=== PATIENT | female | born 1985 | race Caucasian/White ===

== ENCOUNTER 2016-07-28 02:25 | Emergency (ER) | payer BC, OTHER ==
[~2016-07-28] VITALS: Ht 162.6 cm; Wt 49.9 kg
[~2016-07-28 02:25] MED LIST: ACET1TAB43 PO; ACHD5005 PO; AMOX500C2 PO; AZIT-21 PO; CEFD300C3 PO; CEPH500C PO; CPR500T PO; DICY20TA57 PO; FRS325T PO; GABA-488 PO; HYDR-3714 PO; HYDR-3812 PO; HYDR25CA5 PO; IRON; METR500T PO; NAPR500T3 PO; NEOM10DR11 OT; NITR100C3 PO; ONDAN4ODT PO; OXYC-12 PO; PREN1TAB39 PO; PRM25T PO; SULF1TAB35 PO; SULF1TAB38 PO; TRAM-42 PO; TRAM50TA2 PO; birth control patch
[2016-07-28] MEDS ORDERED: NORE1PAT7 (02:49)
--- NOTE | 2016-07-28 04:02 | ED Upper Extremity ---
General Chief Complaint: Upper Extremity Stated Complaint: RT HAND PAIN,SWELLING Nursing Triage Note: Stated she had been having arthritis pain for the last 6 months. Stated that this last week the pain has increased in rt hand- fingers number 4 and 5. States she saw Dr Syed Saturday and was on prednisone. States pain is worse in morning. States the joints feel like they are on fire and swollen. pains increases dwon figers with movement of wrist. States that her father and grandmother have RA. Shes was tested several years ago and tested negative. Tearful Nursing Sepsis Screen: No Definite Risk Source: patient History of Present Illness Time seen by provider: 03:21 Initial Comments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aturday07/23/16 FOR THIS PROBLEM AND WAS GIVEN 7 DAY TAPER OF PREDNISONE--STATES NO IMPROVEMENT NO PARESTHESIAS OR MOTOR DEFICITS PT WRITES WITH LEFT HAND, BUT USES RIGHT HAND FOR EVERYTHING ELSE. 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 NO KNOWN INJURY PCP: DR. SYED Allergies and Home Medications Allergies Coded Allergies: cephalexin (Verified Allergy, Severe, RASH, 07/28/16) tramadol (Verified Adverse Reaction, Unknown, VOMITING, 07/28/16) Home Medications Gabapentin 300 Mg Capsule #21 300 MG PO HS (Reported) Hydrocodone/Acetaminophen 1 Each Tablet #14 1-2 EACH PO Q4H PRN PRN PAIN Prescribed by: MIGEL LAYTON on 03/23/161939 Hydrocodone/Acetaminophen 1 Each Tablet #15 1 EACH PO Q4H Prescribed by: TANNER CROSS on 07/28/16 0411 Naproxen 500 Mg Tablet 500 MG PO (Reported) Norelgestromin/Ethin.estradiol 1 Each Patch.tdwk #3 (Reported) Constitutional: no symptoms reported Respiratory: no symptoms reported Cardiovascular: no symptoms reported Gastrointestinal: no symptoms reported Genitourinary: no symptoms reported LMP: Jun 28, 2016 Control/STD Prophylaxis: BC Patch (ORTHO-EVRA ) Musculoskeletal: see HPI Skin: no symptoms reported Psychiatric/Neurological: No Symptoms Reported Past [place]-Qpil[place]-Wmwtvj Hx Patient Social History Alcohol Use: Denies Use Recreational Drug Use: No Smoking Status: Never a Smoker Recent Foreign Travel: No Contact w/Someone Who Travel: No Recent Infectious Disease Expo: No Recent Hopitalizations: No Physical Abuse Screen: No Sexual Abuse: No Immunizations Up To Date Tetanus Booster (TDap): Less than 5yrs Date of Influenza Vaccine: Apr 27, 2014 Surgeries HX Surgeries: Yes (WISDOM TEETH REMOVED) Surgeries: Gallbladder Respiratory Hx Respiratory Disorders: No Cardiovascular Hx Cardiac Disorders: No Neurological Hx Neurological Disorders: Yes Neurological Disorders: Headaches /Migraines 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 System : No Hx 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 Disorders: No Sexually Transmitted Disease: No HIV/AIDS: No Female 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 Disorders: Ovarian Cyst Genitourinary Hx Genitourinary Disorders: No Gastrointestinal Hx Gastrointestinal Disorders: No Musculoskeletal Hx Musculoskeletal Disorders: Yes Musculoskeletal Disorders: Arthritis, Chronic Back Pain Endocrine Hx Endocrine Disorders: No HEENT HX ENT Disorders: Yes (crowns) Cancer Hx Cancer: No Psychosocial Hx Psychiatric Problems: No Integumentary HX Skin/Integumentary Disorder: No Blood Transfusions Hx Blood Disorders: No Adverse Reaction to a Blood Tr: No Physical Exam Vital Signs Vital Sign - Last 12Hours 07/28/16 02:39 Temp 99.4 Pulse 92 Resp 18 B/P 127/101 Pulse Ox 98 Capillary Refill : Less Than 3 Seconds General Appearance: WD/WN no apparent distress other (DRAMATIC) Cardiovascular: regular rate, rhythm Respiratory: normal breath sounds Gastrointestinal: soft Shoulder: normal inspection Elbow/Forearm: normal inspection Wrist: Yes normal inspection Hand: Right (WITH MOST TENDERNESS TO JOINTS OF RIGHT 4TH AND 5TH FINGERS, AND MCP JOINTS--MILD SWELLING TO JOINTS OF RIGHT HAND WELL-WORSE IN 4TH AND 5TH FINGERS . ), bone tenderness, limited ROM, soft tissue tenderness, stiffness, swelling Neurologic/Tendon: normal sensation Neurologic/Psychiatric: no motor/sensory deficits alert oriented x 3 Skin: normal color warm/dry Progress/Results/Core Measures Results/Orders My Orders Orders-TANNER CROSS DO Wrist, Right, 3 Views Or More (07/28/16 03:24) Hand, Right, 3 Views (07/28/16 03:24) Vital Signs/I&O Vital Sign - Last 12Hours 07/28/16 07/28/16 02:39 04:29 Temp 99.4 99.3 Pulse 92 101 Resp 18 16 B/P 127/101 Pulse Ox 98 100 Blood Pressure Mean: 110 Diagnostic Imaging Comments XRAYS RIGHT HAND--NO ACUTE PROCESS XRAYS RIGHT WRIST--NO ACUTE PROCESS PENDING RADIOLOGIST REVIEW Reviewed: Reviewed by Me Departure Impression Impression: Primary Impression: Chronic pain of right hand Additional Impression: JOINT PAIN AND SWELLING TO RIGHT HAND Disposition: HOME, SELF-CARE Condition: Stable Departure-Patient Inst. Referrals: JOEY SYED DO (PCP/Family) Primary Care Physician Patient Instructions: Chronic Pain (DC), Hand Pain (DC) Add. Discharge Instructions: ALTERNATE ICE AND HEAT TO SORE AREAS AT 20 MINUTE INTERVALS TAKE PREDNISONE PRESCRIBED FOLLOW UP WITH DR. SYED ON SATURDAY FOR FURTHER CARE All discharge instructions reviewed with patient and/or family. Voiced understanding. Scripts Hydrocodone/Acetaminophen (Hydrocodon -Acetaminophen 5-325)1 Each Tablet1 Each PO Q4H #15 TAB Prov:TANNER CROSS DO 07/28/16 TANNER CROSS DO Jul 28, 2016 04:01
[2016-07-28] MEDS ORDERED: HYDR-3812 PO (04:11)
[2016-07-28 04:29] VITALS: BP 120/76
--- NOTE | 2016-07-28 07:43 | Diagnostic Imaging Report ---
EXAMINATION: 3 views of right hand. INDICATION: Hand and wrist pain. FINDINGS: These 3 views of the right hand demonstrate no evidence of dislocation. Joint spaces appear preserved. There is no cortical disruption to suggest fracture. There is no focal soft tissue abnormality. IMPRESSION: Negative radiographs of the right hand. Dictated by: Dictated on workstation # [id number]
--- NOTE | 2016-07-28 07:46 | Diagnostic Imaging Report ---
EXAMINATION: 3 views of the right wrist. INDICATION: Hand and wrist pain. FINDINGS: Alignment of the wrist appears normal. Distal radius and ulna unremarkable. There is widening of the scapholunate interval. There is no fracture of the carpals. The visualized portion of the hand unremarkable IMPRESSION: 1. No acute fracture or dislocation. 2. There is a mildly widened scapholunate interval. The possibility of a scapholunate ligament tear cannot be completely excluded. Dictated by: Dictated on workstation # [id number]
== END 2016-07-28 04:28 | disposition home or self-care (01) ==
LOC: EDUNIT# 02:25 → ER 02:29
DX: M25.541 Pain in joints of right hand (principal); R22.31 Localized swelling, mass and lump, right upper limb
CPT/HCPCS: 73110; 73130

== ENCOUNTER 2016-09-01 11:40 | Emergency (ER) | payer SELFPAY ==
[~2016-09-01] VITALS: Ht 162.6 cm; Wt 59.0 kg
[~2016-09-01 11:40] MED LIST changes: +NORE1PAT7
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
--- NOTE | 2016-09-01 12:18 | ED Lower Extremity ---
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 C/O PAIN IN R 2ND TOE. CRYING ON ADMIT TO ROOM Nursing Sepsis Screen: No Definite Risk Source: patient Exam Limitations: no limitations History of Present Illness Time seen by provider: 12:16 Initial Comments The patient is a 31-year-old white female who presents with a complaint of pain in the right second toe. She states this is the worst pain that she has ever experienced in her life despite having multiple childbirths. She states that somehow the door to their bathroom became walked from the outside. She kicked the door from the inside in an attempt to get out. She was wearing only flip flops at the time. Onset: just prior to arrival Pain/Injury Location: right 2nd toe Method of Injury: other (kicked a door) Allergies and Home Medications Allergies Coded Allergies: cephalexin (Verified Allergy, Severe, RASH, 07/28/16) tramadol (Verified Adverse Reaction, Unknown, VOMITING, 07/28/16) Home Medications Gabapentin 300 Mg Capsule #21 300 MG PO HS (Reported) Naproxen 500 Mg Tablet 500 MG PO (Reported) Norelgestromin/Ethin.estradiol 1 Each Patch.tdwk #3 (Reported) Constitutional: see HPI EENTM: no symptoms reported Respiratory: no symptoms reported Cardiovascular: no symptoms reported Gastrointestinal: no symptoms reported Genitourinary: no symptoms reported Musculoskeletal: no symptoms reported Skin: no symptoms reported Psychiatric/Neurological: No Symptoms Reported Past Hdnhujx-Ndnppq-Fdwrzh Hx Patient Social History Alcohol Use: Denies Use Recreational Drug Use: No Smoking Status: Never a Smoker Recent Foreign Travel: No Contact w/Someone Who Travel: No Recent Infectious Disease Expo: No Recent Hopitalizations: No Immunizations Up To Date Tetanus Booster (TDap): Less than 5yrs Date of Influenza Vaccine: Apr 27, 2014 Surgeries HX Surgeries: Yes (WISDOM TEETH REMOVED) Surgeries: Gallbladder Respiratory Hx Respiratory Disorders: No Cardiovascular Hx Cardiac Disorders: No Neurological Hx Neurological Disorders: Yes Neurological Disorders: Headaches /Migraines 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 System Hx 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 Disorders: No Sexually Transmitted Disease: No HIV/AIDS: No Female 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 Disorders: Ovarian Cyst Genitourinary Hx Genitourinary Disorders: No Gastrointestinal Hx Gastrointestinal Disorders: No Musculoskeletal Hx Musculoskeletal Disorders: Yes Musculoskeletal Disorders: Arthritis, Chronic Back Pain Endocrine Hx Endocrine Disorders: No HEENT HX ENT Disorders: Yes (crowns) Cancer Hx Cancer: No Psychosocial Hx Psychiatric Problems: No Integumentary HX Skin/Integumentary Disorder: No Skin/Integumentary Disorders: Recent Skin Changes Blood Transfusions Hx Blood Disorders: No Adverse Reaction to a Blood Tr: No Physical Exam Vital Signs Vital Sign - Last 12Hours 09/01/16 11:46 Temp 97.6 Pulse 120 Resp 18 B/P 141/101 Pulse Ox 96 O2 Delivery Room Air Capillary Refill : Less Than 3 Seconds General Appearance: moderate distress HEENT: normal ENT inspection Neck: full range of motion Cardiovascular: normal peripheral pulses regular rate, rhythm no edema no gallop no JVD no murmur Respiratory: chest non-tender lungs clear normal breath sounds no respiratory distress no accessory muscle use Comments Right second toe appears swollen without deviation. Progress/Results/Core Measures Results/Orders My Orders Orders-NEAL JEFFERS MD Foot, Right, 3 View (09/01/16 12:18) Toe(S) (09/01/16 12:19) Vital Signs/I&O Vital Sign - Last 12Hours 09/01/16 11:46 Temp 97.6 Pulse 120 Resp 18 B/P 141/101 Pulse Ox 96 O2 Delivery Room Air Blood Pressure Mean: 114 Departure Communication Progress Notes X-ray shows fracture at the distal right second proximal phalanx/PIP joint. Impression Impression: Primary Impression: fracture distal aspect proximal phalanx right second toe Disposition: 01 HOME, SELF-CARE Condition: Stable/Unchanged Departure-Patient Inst. Decision time for Depature: 13:07 Referrals: JOEY SYED DO (PCP/Family) Primary Care Physician Patient Instructions: Toe Fracture (DC) Add. Discharge Instructions: All discharge instructions reviewed with patient and/or family. Voiced understanding. Ice foot and elevate it today. Wear podiatric boot You may use ibuprofen for pain. You may tape the second and third toes together as a splint as you improve. Take 4-6 weeks for complete healing. During this period of time you should wear a protective shoe anytime you are up on her feet NEAL JEFFERS MD Sep 01, 2016 12:18 NEAL JEFFERS MD Sep 01, 2016 12:18
--- NOTE | 2016-09-01 13:18 | Diagnostic Imaging Report ---
INDICATION: Kicked door with foot. FINDINGS: There is a fracture involving the distal aspect of proximal phalanx of the second digit which does extend into the articulating surface. The PIP joint does show good alignment. No other fractures are demonstrated. IMPRESSION: Nondisplaced intra-articular fracture of the distal aspect of the proximal second phalanx. Dictated by: Dictated on workstation # [id number]
[2016-09-01 13:19] VITALS: BP 141/101
--- NOTE | 2016-09-01 13:41 | Diagnostic Imaging Report ---
INDICATION: Toe pain after kicking door. COMPARISON: Right foot radiographs performed concurrently. TECHNIQUE: Three views of the toes were obtained. FINDINGS: There is an oblique, intra-articular fracture through the second proximal phalanx head. There is no significant articular surface step-off. The fracture gap width measures less than 2 mm. No additional acute fracture. No traumatic subluxation. IMPRESSION: Acute, minimally displaced and intra-articular fracture involving the head of the second toe proximal phalanx. Dictated by: Dictated on workstation # [id number]
== END 2016-09-01 13:19 | disposition home or self-care (01) ==
LOC: EDUNIT# 11:40 → ER 11:41
DX: S92.511A Displaced fracture of proximal phalanx of right lesser toe(s), initial encounter for closed fracture (principal); W22.09XA Striking against other stationary object, initial encounter; Y92.012 Bathroom of single-family (private) house as the place of occurrence of the external cause; Y99.8 Other external cause status
CPT/HCPCS: 73630; 73660; 99283

== ENCOUNTER 2016-10-21 11:22 | Emergency (ER) | payer SELFPAY ==
[~2016-10-21] VITALS: Ht 162.6 cm; Wt 51.7 kg
--- NOTE | 2016-10-21 11:51 | ED Upper Extremity ---
General Chief Complaint: Upper Extremity Stated Complaint: R ARM PAIN Nursing Triage Note: PT CO OF RA MAKING R HAND AND WRIST MORE PAINFUL THAN USUAL. Nursing Sepsis Screen: No Definite Risk Source: patient Exam Limitations: no limitations History of Present Illness Time seen by provider: 11:35 Initial Comments 31-year-old female patient presents to the emergency department complaints of right wrist and hand pain. Denies any known injury. States she has rheumatoid arthritis which involves the right ring and pinky fingers typically. Now pain also in the right thumb and wrist. Patient states she does take Neurontin, naproxen, and occasionally hydrocodone for pain. States she is out of her hydrocodone. Sees Dr. Syed. Denies seeing a fundraising specialist previously. Onset: other (chronic pain, worse today) Pain/Injury Location: right wrist, right thumb, right 4th finger, right 5th finger Method of Injury: unknown Modifying Factors: Improves With Immobilization, Worse With Movement Allergies and Home Medications Allergies Coded Allergies: cephalexin (Verified Allergy, Severe, RASH, 07/28/16) tramadol (Verified Adverse Reaction, Unknown, VOMITING, 07/28/16) Home Medications Gabapentin 300 Mg Capsule, 300 MG PO HS, #21 (Reported) Naproxen 500 Mg Tablet, 500 MG PO, (Reported) Norelgestromin/Ethin.estradiol 1 Each Patch.tdwk, #3 (Reported) Prednisone 20 Mg Tab, 40 MG PO DAILY, #10 Ref 0 Prescribed by: ALBERTO NEAL on 10/21/16 1209 Constitutional: No chills, No fever, No malaise Respiratory: no symptoms reported Cardiovascular: no symptoms reported Musculoskeletal: see HPI, joint pain, joint swelling Skin: No change in color, No lesions, No rash Psychiatric/Neurological: Denies Headache, Denies Numbness, Denies Paresthesia , Pre-Existing Deficit (chronic neuropathy of the lower extremities), Denies Tingling, Denies Weakness All Other Systems Reviewed Negative Unless Noted: Yes (Negative excepted noted.) Past [id number]-[id number] Hx Patient Social History Alcohol Use: Denies Use Recreational Drug Use: No Smoking Status: Never a Smoker Recent Foreign Travel: No Contact w/Someone Who Travel: No Recent Infectious Disease Expo: No Recent Hopitalizations: No Immunizations Up To Date Tetanus Booster (TDap): Less than 5yrs Date of Influenza Vaccine: Apr 27, 2014 Surgeries HX Surgeries: Yes (WISDOM TEETH REMOVED) Surgeries: Gallbladder Respiratory Hx Respiratory Disorders: No Cardiovascular Hx Cardiac Disorders: No Neurological Hx Neurological Disorders: Yes Neurological Disorders: Headaches /Migraines 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 System Hx 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 Disorders: No Sexually Transmitted Disease: No HIV/AIDS: No Female 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 Disorders: Ovarian Cyst Genitourinary Hx Genitourinary Disorders: No Gastrointestinal Hx Gastrointestinal Disorders: No Musculoskeletal Hx Musculoskeletal Disorders: Yes Musculoskeletal Disorders: Arthritis, Chronic Back Pain Endocrine Hx Endocrine Disorders: No HEENT HX ENT Disorders: Yes (crowns) Cancer Hx Cancer: No Psychosocial Hx Psychiatric Problems: No Integumentary HX Skin/Integumentary Disorder: No Skin/Integumentary Disorders: Recent Skin Changes Blood Transfusions Hx Blood Disorders: No Adverse Reaction to a Blood Tr: No Reviewed Nursing Assessment Reviewed/Agree w Nursing PMH: Yes Family Medical History Significant Family History: No Pertinent Family Hx Physical Exam Vital Signs Capillary Refill : Less Than 3 Seconds General Appearance: WD/WN, no apparent distress Cardiovascular: normal peripheral pulses, regular rate, rhythm, no murmur Respiratory: lungs clear, normal breath sounds, no respiratory distress Shoulder: normal inspection, non-tender, no evidence of injury, normal ROM Elbow/Forearm: normal inspection, non-tender, no evidence of injury, normal ROM , Bilateral Wrist: Yes bone tenderness, Yes limited ROM, Yes pain, Yes soft tissue tenderness (rt radial wrist), Yes swelling Hand: Right, bone tenderness, limited ROM, soft tissue tenderness, swelling Neurologic/Tendon: normal sensation, normal motor functions, normal tendon functions, responds to pain, no evidence tendon injury Neurologic/Psychiatric: no motor/sensory deficits, alert, normal mood/affect, oriented x 3 Skin: normal color, warm/dry Progress/Results/Core Measures Results/Orders Vital Signs/I&O Blood Pressure Mean: 100 Departure Communication Progress Notes Patient seen and evaluated. Per [facility] patient is receiving hydrocodone prescriptions from both Dr. Syed and Dr. Ngo (in [facility]). Patient states she has not seen dr. Ngo for several months. However, patient is noted to have received lortab 5/325 mg #[address] Syed on 10/11/16, lortab 10/325 mg #[address] Ngo on 09/25/16, and lortab 5/325 mg #[address] Syed on 09/21/16. Patient advised to continue one of the lortab prescriptions and to f/u with Dr. Syed for discussion of receiving narcotics from 2 different providers. Patient voices understanding and agrees with the treatment plan. Impression Impression: Primary Impression: Rheumatoid arthritis flare Disposition: HOME, SELF-CARE Condition: Improved Departure-Patient Inst. Decision time for Depature: 11:49 Referrals: JOEY SYED DO (PCP/Family) Primary Care Physician Patient Instructions: Rheumatoid Arthritis (DC) Add. Discharge Instructions: All discharge instructions reviewed with patient and/or family. Voiced understanding. Medications as directed. Continue usual medications. Ice packs or heating pads as needed for pain. Activity as tolerated. Follow-up with Dr. Syed as an outpatient for a recheck and for discussion of possible rheumatoid referral. Return to the emergency department for worsened symptoms or any other concerns. Scripts Prednisone (Prednisone) 20 Mg Tab 40 MG PO DAILY, #10 TAB 0 Refills Prov: ALBERTO NEAL 10/21/16 Work/School Note: Work Release Form Date Seen in the Emergency Department: Oct 21, 2016 Return to Work: Oct 23, 2016 Restrictions: No Restrictions Copy Copies To 1: JOEY SYED DO Copies To 2: ALBERTO Gray Oct 21, 2016 11:51
[2016-10-21] MEDS ORDERED: HYDR-3820 PO (12:09)
[2016-10-21] MEDS ORDERED: PRD20T PO (12:09)
[2016-10-21 12:24] VITALS: BP 127/87
--- OUTSIDE RECORDS SUMMARY | 2016-11-25 05:58 | XMS REPORT | Continuity of Care Document ---
Author Author Formerly [facility] Address Unknown Phone Unavailable Allergies Active Description Code Type Severity Reaction Onset Reported/Identified Relationship to Patient Clinical Status Yes No Known Drug Allergies [id number] Drug Allergy Unknown N/ A 01/19/2009 Yes cephalexin [id number] Drug Allergy Severe RASH 07/28/2016 Yes tramadol [id number] Drug Allergy Unknown VOMITING 07/28/2016 Medications Problems Date Dx Coded Attending Type Code Diagnosis Diagnosed By 07/12/2008 HAGEN DO NORMA K V72.42 TEST POSITIVE RESULT 07/12/2008 HAGEN DO, NORMA K V72.42 TEST POSITIVE RESULT 07/12/2008 HAGEN DO, NORMA K V72.42 TEST POSITIVE RESULT 07/12/2008 HAGEN DO, NORMA K V72.42 TEST POSITIVE RESULT 07/12/2008 HAGEN DO, NORMA K V72.42 TEST POSITIVE RESULT 07/12/2008 HAGEN DO, NORMA K V72.42 TEST POSITIVE RESULT 07/12/2008 HAGEN DO, NORMA K V72.42 TEST POSITIVE RESULT 07/12/2008 HAGEN DO, NORMA K V72.42 TEST POSITIVE RESULT 07/12/2008 TOBI TORRES APRN V72.42 TEST POSITIVE RESULT 07/21/2008 HAGEN DO, NORMA K 788.41 URINARY FREQUENCY 07/21/2008 HAGEN DO, NORMA K V22.1 NORMAL ROUTINE HISTORY AND PHYSICAL - LABOR AND DELIVERY 07/21/2008 HAGEN DO, NORMA K 788.41 URINARY FREQUENCY 07/21/2008 HAGEN DO, NORMA K V22.1 NORMAL ROUTINE HISTORY AND PHYSICAL - LABOR AND DELIVERY 07/21/2008 HAGEN DO, NORMA K 788.41 URINARY FREQUENCY 07/21/2008 HAGEN DO, NORMA K V22.1 NORMAL ROUTINE HISTORY AND PHYSICAL - LABOR AND DELIVERY 07/21/2008 HAGEN DO, NORMA K 788.41 URINARY FREQUENCY 07/21/2008 HAGEN DO, NORMA K V22.1 NORMAL ROUTINE HISTORY AND PHYSICAL - LABOR AND DELIVERY 07/21/2008 HAGEN DO, NORMA K 788.41 URINARY FREQUENCY 07/21/2008 HAGEN DO, NORMA K V22.1 NORMAL ROUTINE HISTORY AND PHYSICAL - LABOR AND DELIVERY 07/21/2008 HAGEN DO, NORMA K 788.41 URINARY FREQUENCY 07/21/2008 HAGEN DO, NORMA K V22.1 NORMAL ROUTINE HISTORY AND PHYSICAL - LABOR AND DELIVERY 07/21/2008 HAGEN DO, NORMA K 788.41 URINARY FREQUENCY 07/21/2008 HAGEN DO, NORMA K V22.1 NORMAL ROUTINE HISTORY AND PHYSICAL - LABOR AND DELIVERY 07/21/2008 HAGEN DO, NORMA K 788.41 URINARY FREQUENCY 07/21/2008 HAGEN DO, NORMA K V22.1 NORMAL ROUTINE HISTORY AND PHYSICAL - LABOR AND DELIVERY 07/21/2008 MELISSA FINAL CANOE INSPECTOR, TOBI A 788.41 URINARY FREQUENCY 07/21/2008 MELISSA FINAL CANOE INSPECTOR, TOBI A V22.1 NORMAL ROUTINE HISTORY AND PHYSICAL - LABOR AND DELIVERY 08/10/2008 HAGEN DO, NORMA K V23.2 HIGH RISK HX OF 08/10/2008 HAGEN DO, NORMA K V23.2 HIGH RISK HX OF 08/10/2008 HAGEN DO, NORMA K V23.2 HIGH RISK HX OF 08/10/2008 HAGEN DO, NORMA K V23.2 HIGH RISK HX OF 08/10/2008 HAGEN DO, NORMA K V23.2 HIGH RISK HX OF 08/10/2008 HAGEN DO, NORMA K V23.2 HIGH RISK HX OF 08/10/2008 HAGEN DO, NORMA K V23.2 HIGH RISK HX OF 08/10/2008 HAGEN DO, NORMA K V23.2 HIGH RISK HX OF 08/10/2008 MELISSA FINAL CANOE INSPECTOR, TOBI A V23.2 HIGH RISK HX OF 08/12/2008 HAGEN DO, NORMA K 041.02 GROUP B STREP INFECTION - UNSPECIFIED SITE 08/12/2008 HAGEN DO, NORMA K 041.02 GROUP B STREP INFECTION - UNSPECIFIED SITE 08/12/2008 HAGEN DO, NORMA K 041.02 GROUP B STREP INFECTION - UNSPECIFIED SITE 08/12/2008 HAGEN DO NORMA K 041.02 GROUP B STREP INFECTION - UNSPECIFIED SITE 08/12/2008 HAGEN DO, NORMA K 041.02 GROUP B STREP INFECTION - UNSPECIFIED SITE 08/12/2008 HAGEN DO, NORMA K 041.02 GROUP B STREP INFECTION - UNSPECIFIED SITE 08/12/2008 HAGEN DO, NORMA K 041.02 GROUP B STREP INFECTION - UNSPECIFIED SITE 08/12/2008 HAGEN DO, NORMA K 041.02 GROUP B STREP INFECTION - UNSPECIFIED SITE 08/12/2008 MELISSA FINAL CANOE INSPECTOR, TOBI A 041.02 GROUP B STREP INFECTION - UNSPECIFIED SITE 09/07/2008 HAGEN DO, NORMA K 786.9 OTHER SYMPTOMS INVOLVING RESPIRATORY SYSTEM AND CHEST 09/07/2008 HAGEN DO, NORMA K 786.9 OTHER SYMPTOMS INVOLVING RESPIRATORY SYSTEM AND CHEST 09/07/2008 HAGEN DO, NORMA K 786.9 OTHER SYMPTOMS INVOLVING RESPIRATORY SYSTEM AND CHEST 09/07/2008 HAGEN DO, NORMA K 786.9 OTHER SYMPTOMS INVOLVING RESPIRATORY SYSTEM AND CHEST 09/07/2008 HAGEN DO, NORMA K 786.9 OTHER SYMPTOMS INVOLVING RESPIRATORY SYSTEM AND CHEST 09/07/2008 HAGEN DO, NORMA K 786.9 OTHER SYMPTOMS INVOLVING RESPIRATORY SYSTEM AND CHEST 09/07/2008 HAGEN DO, NORMA K 786.9 OTHER SYMPTOMS INVOLVING RESPIRATORY SYSTEM AND CHEST 09/07/2008 HAGEN DO, NORMA K 786.9 OTHER SYMPTOMS INVOLVING RESPIRATORY SYSTEM AND CHEST 09/07/2008 MELISSA FINAL CANOE INSPECTOR, TOBI A 786.9 OTHER SYMPTOMS INVOLVING RESPIRATORY SYSTEM AND CHEST 09/14/2008 HAGEN DO, NORMA K V72.31 MUSIC EDUCATION DIRECTOR EXAM, ROUTINE 09/14/2008 HAGEN DO, NORMA K V74.5 STD SCREEN 09/14/2008 HAGEN DO, NORMA K V72.31 MUSIC EDUCATION DIRECTOR EXAM, ROUTINE 09/14/2008 HAGEN DO, NORMA K V74.5 STD SCREEN 09/14/2008 HAGEN DO, NORMA K V72.31 MUSIC EDUCATION DIRECTOR EXAM, ROUTINE 09/14/2008 HAGEN DO, NORMA K V74.5 STD SCREEN 09/14/2008 HAGEN DO, NORMA K V72.31 MUSIC EDUCATION DIRECTOR EXAM, ROUTINE 09/14/2008 HAGEN DO, NORMA K V74.5 STD SCREEN 09/14/2008 HAGEN DO, NORMA K V72.31 MUSIC EDUCATION DIRECTOR EXAM, ROUTINE 09/14/2008 HAGEN DO, NORMA K V74.5 STD SCREEN 09/14/2008 HAGEN DO, NORMA K V72.31 MUSIC EDUCATION DIRECTOR EXAM, ROUTINE 09/14/2008 HAGEN DO, NORMA K V74.5 STD SCREEN 09/14/2008 HAGEN DO, NORMA K V72.31 MUSIC EDUCATION DIRECTOR EXAM, ROUTINE 09/14/2008 HAGEN DO, NORMA K V74.5 STD SCREEN 09/14/2008 HAGEN DO, NORMA K V72.31 MUSIC EDUCATION DIRECTOR EXAM, ROUTINE 09/14/2008 HAGEN DO, NORMA K V74.5 STD SCREEN 09/14/2008 MELISSA FINAL CANOE INSPECTOR, TOBI A V72.31 MUSIC EDUCATION DIRECTOR EXAM, ROUTINE 09/14/2008 MELISSA FINAL CANOE INSPECTOR, TOBI A V74.5 STD SCREEN 10/03/2008 HAGEN DO, NORMA K 795.0 ABNORMAL PAP SMEAR ASCUS 10/03/2008 HAGEN DO, NORMA K 795.0 ABNORMAL PAP SMEAR ASCUS 10/03/2008 HAGEN DO, NORMA K 795.0 ABNORMAL PAP SMEAR ASCUS 10/03/2008 HAGEN DO, NORMA K 795.0 ABNORMAL PAP SMEAR ASCUS 10/03/2008 HAGEN DO, NORMA K 795.0 ABNORMAL PAP SMEAR ASCUS 10/03/2008 HAGEN DO, NORMA K 795.0 ABNORMAL PAP SMEAR ASCUS 10/03/2008 HAGEN DO, NORMA K 795.0 ABNORMAL PAP SMEAR ASCUS 10/03/2008 HAGEN DO, NORMA K 795.0 ABNORMAL PAP SMEAR ASCUS 10/03/2008 MELISSA FINAL CANOE INSPECTOR, TOBI A 795.0 ABNORMAL PAP SMEAR ASCUS 11/23/2008 HAGEN DO, NORMA K 724.2 LUMBAGO 11/23/2008 HAGEN DO, NORMA K 724.2 LUMBAGO 11/23/2008 HAGEN DO, NORMA K 724.2 LUMBAGO 11/23/2008 HAGEN DO, NORMA K 724.2 LUMBAGO 11/23/2008 HAGEN DO, NORMA K 724.2 LUMBAGO 11/23/2008 HAGEN DO, NORMA K 724.2 LUMBAGO 11/23/2008 HAGEN DO, NORMA K 724.2 LUMBAGO 11/23/2008 HAGEN DO, NORMA K 724.2 LUMBAGO 11/23/2008 MELISSAKaty CHINO TOBI A 724.2 LUMBAGO 11/29/2008 HAGEN DO, NORMA K 648.20 COMPL OF - ANEMIA 11/29/2008 HAGEN DO, NORMA K 648.20 COMPL OF - ANEMIA 11/29/2008 HAGEN DO, NORMA K 648.20 COMPL OF - ANEMIA 11/29/2008 HAGEN DO, NORMA K 648.20 COMPL OF - ANEMIA 11/29/2008 HAGEN DO, NORMA K 648.20 COMPL OF - ANEMIA 11/29/2008 HAGEN DO, NORMA K 648.20 COMPL OF - ANEMIA 11/29/2008 HAGEN DO, NORMA K 648.20 COMPL OF - ANEMIA 11/29/2008 HAGEN DO, NORMA K 648.20 COMPL OF - ANEMIA 11/29/2008 MELISSA FINAL CANOE INSPECTOR, TOBI A 648.20 COMPL OF - ANEMIA 01/14/2009 HAGEN DO, NORMA K 644.00 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 TO EPISODE OF CARE 01/14/2009 HAGEN DO, NORMA K 644.00 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 TO EPISODE OF CARE 01/14/2009 HAGEN DO, NORMA K 644.00 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 TO EPISODE OF CARE 01/14/2009 HAGEN DO, NORMA K 644.00 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 TO EPISODE OF CARE 01/14/2009 HAGEN DO, NORMA K 644.00 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 TO EPISODE OF CARE 01/14/2009 HAGEN DO, NORMA K 644.00 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 TO EPISODE OF CARE 01/14/2009 HAGEN DO, NORMA K 644.00 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 TO EPISODE OF CARE 01/14/2009 HAGEN DO, NORMA K 644.00 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 TO EPISODE OF CARE 01/14/2009 MELISSA FINAL CANOE INSPECTOR, TOBI A 644.00 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 TO EPISODE OF CARE 04/28/2009 HAGEN DO, NORMA K V25.40 Visit For: Contraceptive Surveillance 04/28/2009 HAGEN DO NORMA K V25.40 Visit For: Contraceptive Surveillance 04/28/2009 HAGEN DO NORMA K V25.40 Visit For: Contraceptive Surveillance 04/28/2009 HAGEN DO NORMA K V25.40 Visit For: Contraceptive Surveillance 04/28/2009 HAGEN DOGEOVANYA K V25.40 Visit For: Contraceptive Surveillance 04/28/2009 XIAO DO NORMA K V25.40 Visit For: Contraceptive Surveillance 04/28/2009 NORMA HAGEN DO V25.40 Visit For: Contraceptive Surveillance 04/28/2009 NORMA HAGEN DO V25.40 Visit For: Contraceptive Surveillance 04/28/2009 TOBI TORRES APRN A V25.40 Visit For: Contraceptive Surveillance 06/27/2009 NORMA HAGEN DO 346.10 COMMON MIGRAINE (WITHOUT AURA) 06/27/2009 NORMA HAGEN DO V25.49 Gynecologic Service Prescrip Of Contracept Agent - Repeat Rx 06/27/2009 GEOVANY HAGEN DOA K 346.10 COMMON MIGRAINE (WITHOUT AURA) 06/27/2009 GEOVANY HAGEN DOA K V25.49 Gynecologic Service Prescrip Of Contracept Agent - Repeat Rx 06/27/2009 GEOVANY HAGEN DOA K 346.10 COMMON MIGRAINE (WITHOUT AURA) 06/27/2009 NORMA HAGEN DO V25.49 Gynecologic Service Prescrip Of Contracept Agent - Repeat Rx 06/27/2009 NORMA HAGEN DO K 346.10 COMMON MIGRAINE (WITHOUT AURA) 06/27/2009 NORMA HAGEN DO V25.49 Gynecologic Service Prescrip Of Contracept Agent - Repeat Rx 06/27/2009 GEOVANY HAGEN DOA K 346.10 COMMON MIGRAINE (WITHOUT AURA) 06/27/2009 NORMA HAGEN DO V25.49 Gynecologic Service Prescrip Of Contracept Agent - Repeat Rx 06/27/2009 GEOVANY HAGEN DOA K 346.10 COMMON MIGRAINE (WITHOUT AURA) 06/27/2009 GEOVANY HAGEN DOA K V25.49 Gynecologic Service Prescrip Of Contracept Agent - Repeat Rx 06/27/2009 GEOVANY HAGEN DOA K 346.10 COMMON MIGRAINE (WITHOUT AURA) 06/27/2009 NORMA HAGEN DO V25.49 Gynecologic Service Prescrip Of Contracept Agent - Repeat Rx 06/27/2009 GEOVANY HAGEN DOA K 346.10 COMMON MIGRAINE (WITHOUT AURA) 06/27/2009 NORMA HAGEN DO K V25.49 Gynecologic Service Prescrip Of Contracept Agent - Repeat Rx 06/27/2009 TOBI TORRES APRN A 346.10 COMMON MIGRAINE (WITHOUT AURA) 06/27/2009 TOBI TORRES APRN A V25.49 Gynecologic Service Prescrip Of Contracept Agent - Repeat Rx 07/26/2009 HAGEN DO, NORMA K 300.00 anxiety 07/26/2009 HAGEN DO, NORMA K 782.2 Lump In / On The Skin 07/26/2009 HAGEN DO, NORMA K 300.00 anxiety 07/26/2009 HAGEN DO, NORMA K 782.2 Lump In / On The Skin 07/26/2009 HAGEN DO, NORMA K 300.00 anxiety 07/26/2009 HAGEN DO, NORMA K 782.2 Lump In / On The Skin 07/26/2009 HAGEN DO, NORMA K 300.00 anxiety 07/26/2009 HAGEN DO, NORMA K 782.2 Lump In / On The Skin 07/26/2009 HAGEN DO, NORMA K 300.00 anxiety 07/26/2009 HAGEN DO, NORMA K 782.2 Lump In / On The Skin 07/26/2009 HAGEN DO, NORMA K 300.00 anxiety 07/26/2009 HAGEN DO, NORMA K 782.2 Lump In / On The Skin 07/26/2009 HAGEN DO, NORMA K 300.00 anxiety 07/26/2009 HAGEN DO, NORMA K 782.2 Lump In / On The Skin 07/26/2009 HAGEN DO, NORMA K 300.00 anxiety 07/26/2009 HAGEN DO, NORMA K 782.2 Lump In / On The Skin 07/26/2009 MELISSA FINAL CANOE INSPECTOR, TOBI A 300.00 anxiety 07/26/2009 MELISSA FINAL CANOE INSPECTOR, TOBI A 782.2 Lump In / On The Skin 09/29/2009 HAGEN DO, NORMA K 616.10 Vaginitis And Vulvovaginitis, Unspecified 09/29/2009 HAGEN DO, NORMA K 616.10 Vaginitis And Vulvovaginitis, Unspecified 09/29/2009 HAGEN DO, NORMA K 616.10 Vaginitis And Vulvovaginitis, Unspecified 09/29/2009 HAGEN DO, NORMA K 616.10 Vaginitis And Vulvovaginitis, Unspecified 09/29/2009 HAGEN DO, NORMA K 616.10 Vaginitis And Vulvovaginitis, Unspecified 09/29/2009 HAGEN DO, NORMA K 616.10 Vaginitis And Vulvovaginitis, Unspecified 09/29/2009 HAGEN DO, NORMA K 616.10 Vaginitis And Vulvovaginitis, Unspecified 09/29/2009 HAGEN DO, NORMA K 616.10 Vaginitis And Vulvovaginitis, Unspecified 09/29/2009 MELISSA FINAL CANOE INSPECTOR, TOBI A 616.10 Vaginitis And Vulvovaginitis, Unspecified 02/13/2010 HAGEN DO, NORMA K 784.1 Throat Pain 02/13/2010 HAGEN DO, NORMA K 787.91 Diarrhea 02/13/2010 HAGEN DO, NORMA K 784.1 Throat Pain 02/13/2010 HAGEN DO, NORMA K 787.91 Diarrhea 02/13/2010 HAGEN DO, NORMA K 784.1 Throat Pain 02/13/2010 HAGEN DO, NORMA K 787.91 Diarrhea 02/13/2010 HAGEN DO, NORMA K 784.1 Throat Pain 02/13/2010 HAGEN DO, NORMA K 787.91 Diarrhea 02/13/2010 HAGEN DO, NORMA K 784.1 Throat Pain 02/13/2010 HAGEN DO, NORMA K 787.91 Diarrhea 02/13/2010 HAGEN DO, NORMA K 784.1 Throat Pain 02/13/2010 HAGEN DO, NORMA K 787.91 Diarrhea 02/13/2010 HAGEN DO, NORMA K 784.1 Throat Pain 02/13/2010 HAGEN DO, NORMA K 787.91 Diarrhea 02/13/2010 HAGEN DO, NORMA K 784.1 Throat Pain 02/13/2010 HAGEN DO, NORMA K 787.91 Diarrhea 02/13/2010 MELISSA FINAL CANOE INSPECTOR, TOBI A 784.1 Throat Pain 02/13/2010 MELISSA FINAL CANOE INSPECTOR, TOBI A 787.91 Diarrhea 03/22/2010 Ot 300.00 03/22/2010 Ot 780.4 04/11/2010 Ot 490 04/11/2010 Ot 786.2 04/13/2010 HAGEN DO, NORMA K 465.9 Acute Upper Respiratory Infections Of Unspecified Site 04/13/2010 HAGEN DO, NORMA K 465.9 Acute Upper Respiratory Infections Of Unspecified Site 04/13/2010 HAGEN DO, NORMA K 465.9 Acute Upper Respiratory Infections Of Unspecified Site 04/13/2010 HAGEN DO, NORMA K 465.9 Acute Upper Respiratory Infections Of Unspecified Site 04/13/2010 HAGEN DO, NORMA K 465.9 Acute Upper Respiratory Infections Of Unspecified Site 04/13/2010 HAGEN DO, NORMA K 465.9 Acute Upper Respiratory Infections Of Unspecified Site 04/13/2010 HAGEN DO, NORMA K 465.9 Acute Upper Respiratory Infections Of Unspecified Site 04/13/2010 HAGEN DO, NORMA K 465.9 Acute Upper Respiratory Infections Of Unspecified Site 04/13/2010 MELISSA FINAL CANOE INSPECTOR, TOBI A 465.9 Acute Upper Respiratory Infections Of Unspecified Site 07/25/2010 HAGEN DO, NORMA K 709.9 Skin Lesions 07/25/2010 HAGEN DO, NORMA K 709.9 Skin Lesions 07/25/2010 HAGEN DO, NORMA K 709.9 Skin Lesions 07/25/2010 HAGEN DO, NORMA K 709.9 Skin Lesions 07/25/2010 HAGEN DO, NORMA K 709.9 Skin Lesions 07/25/2010 HAGEN DO, NORMA K 709.9 Skin Lesions 07/25/2010 HAGEN DO, NORMA K 709.9 Skin Lesions 07/25/2010 HAGEN DO, NORMA K 709.9 Skin Lesions 07/25/2010 MELISSA FINAL CANOE INSPECTOR, TOBI A 709.9 Skin Lesions 08/07/2010 HAGEN DO, NORMA K 919.4 Insect Bite Nonvenomous Of Other Multiple And Unspecified Sites Without Infection 08/07/2010 HAGEN DO, NORMA K E849.9 Accidents Occurring In Unspecified Place 08/07/2010 HAGEN DO, NORMA K E906.4 Bite Of Nonvenomous Arthropod 08/07/2010 HAGEN DO, NORMA K 919.4 Insect Bite Nonvenomous Of Other Multiple And Unspecified Sites Without Infection 08/07/2010 HAGEN DO, NORMA K E849.9 Accidents Occurring In Unspecified Place 08/07/2010 HAGEN DO, NORMA K E906.4 Bite Of Nonvenomous Arthropod 08/07/2010 HAGEN DO, NORMA K 919.4 Insect Bite Nonvenomous Of Other Multiple And Unspecified Sites Without Infection 08/07/2010 HAGEN DO, NORMA K E849.9 Accidents Occurring In Unspecified Place 08/07/2010 HAGEN DO, NORMA K E906.4 Bite Of Nonvenomous Arthropod 08/07/2010 HAGEN DO, NORMA K 919.4 Insect Bite Nonvenomous Of Other Multiple And Unspecified Sites Without Infection 08/07/2010 HAGEN DO, NORMA K E849.9 Accidents Occurring In Unspecified Place 08/07/2010 HAGEN DO, NORMA K E906.4 Bite Of Nonvenomous Arthropod 08/07/2010 HAGEN DO, NORMA K 919.4 Insect Bite Nonvenomous Of Other Multiple And Unspecified Sites Without Infection 08/07/2010 HAGEN DO, NORMA K E849.9 Accidents Occurring In Unspecified Place 08/07/2010 HAGEN DO, NORMA K E906.4 Bite Of Nonvenomous Arthropod 08/07/2010 HAGEN DO, NORMA K 919.4 Insect Bite Nonvenomous Of Other Multiple And Unspecified Sites Without Infection 08/07/2010 HAGEN DO, NORMA K E849.9 Accidents Occurring In Unspecified Place 08/07/2010 HAGEN DO, NORMA K E906.4 Bite Of Nonvenomous Arthropod 08/07/2010 HAGEN DO, NORMA K 919.4 Insect Bite Nonvenomous Of Other Multiple And Unspecified Sites Without Infection 08/07/2010 HAGEN DO, NORMA K E849.9 Accidents Occurring In Unspecified Place 08/07/2010 HAGEN DO, NORMA K E906.4 Bite Of Nonvenomous Arthropod 08/07/2010 HAGEN DO, NORMA K 919.4 Insect Bite Nonvenomous Of Other Multiple And Unspecified Sites Without Infection 08/07/2010 HAGEN DO, NORMA K E849.9 Accidents Occurring In Unspecified Place 08/07/2010 HAGEN DO, NORMA K E906.4 Bite Of Nonvenomous Arthropod 08/07/2010 MELISSA FINAL CANOE INSPECTOR, TOBI A 919.4 Insect Bite Nonvenomous Of Other Multiple And Unspecified Sites Without Infection 08/07/2010 MELISSA FINAL CANOE INSPECTOR, TOBI A E849.9 Accidents Occurring In Unspecified Place 08/07/2010 MELISSA FINAL CANOE INSPECTOR, TOBI A E906.4 Bite Of Nonvenomous Arthropod 08/22/2010 HAGEN DO, NORMA K 789.03 Abdominal Pain Right Lower Quadrant 08/22/2010 HAGEN DO, NORMA K 789.03 Abdominal Pain Right Lower Quadrant 08/22/2010 HAGEN DO, NORMA K 789.03 Abdominal Pain Right Lower Quadrant 08/22/2010 HAGEN DO, NORMA K 789.03 Abdominal Pain Right Lower Quadrant 08/22/2010 HAGEN DO, NORMA K 789.03 Abdominal Pain Right Lower Quadrant 08/22/2010 HAGEN DO, NORMA K 789.03 Abdominal Pain Right Lower Quadrant 08/22/2010 HAGEN DO, NORMA K 789.03 Abdominal Pain Right Lower Quadrant 08/22/2010 HAGEN DO, NORMA K 789.03 Abdominal Pain Right Lower Quadrant 08/22/2010 TOBI TORRES APRN A 789.03 Abdominal Pain Right Lower Quadrant 08/24/2010 HAGEN DO, NORMA K 112.1 Candidiasis Vaginal 08/24/2010 HAGEN DO, NORMA K 112.1 Candidiasis Vaginal 08/24/2010 HAGEN DO, NORMA K 112.1 Candidiasis Vaginal 08/24/2010 HAGEN DO, NORMA K 112.1 Candidiasis Vaginal 08/24/2010 HAGEN DO, NORMA K 112.1 Candidiasis Vaginal 08/24/2010 HAGEN DO, NORMA K 112.1 Candidiasis Vaginal 08/24/2010 HAGEN DO, NORMA K 112.1 Candidiasis Vaginal 08/24/2010 HAGEN DO, NORMA K 112.1 Candidiasis Vaginal 08/24/2010 TOBI TORRES APRN A 112.1 Candidiasis Vaginal 10/16/2010 HAGEN DO, NORMA K 780.50 Sleep Disturbances 10/16/2010 HAGEN DO, NORMA K 784.0 Headache 10/16/2010 HAGEN DO, NORMA K V25.02 Contraceptives 10/16/2010 HAGEN DO, NORMA K 780.50 Sleep Disturbances 10/16/2010 HAGEN DO, NORMA K 784.0 Headache 10/16/2010 HAGEN DO, NORMA K V25.02 Contraceptives 10/16/2010 HAGEN DO, NORMA K 780.50 Sleep Disturbances 10/16/2010 HAGEN DO, NORMA K 784.0 Headache 10/16/2010 HAGEN DO, NORMA K V25.02 Contraceptives 10/16/2010 HAGEN DO, NORMA K 780.50 Sleep Disturbances 10/16/2010 HAGEN DO, NORMA K 784.0 Headache 10/16/2010 HAGEN DO, NORMA K V25.02 Contraceptives 10/16/2010 HAGEN DO, NORMA K 780.50 Sleep Disturbances 10/16/2010 HAGEN DO, NORMA K 784.0 Headache 10/16/2010 HAGEN DO, NORMA K V25.02 Contraceptives 10/16/2010 HAGEN DO, NORMA K 780.50 Sleep Disturbances 10/16/2010 HAGEN DO, NORMA K 784.0 Headache 10/16/2010 HAGEN DO, NORMA K V25.02 Contraceptives 10/16/2010 HAGEN DO, NORMA K 780.50 Sleep Disturbances 10/16/2010 HAGEN DO, NORMA K 784.0 Headache 10/16/2010 HAGEN DO, NORMA K V25.02 Contraceptives 10/16/2010 HAGEN DO, NORMA K 780.50 Sleep Disturbances 10/16/2010 HAGEN DO, NORMA K 784.0 Headache 10/16/2010 HAGEN DO, NORMA K V25.02 Contraceptives 10/16/2010 MELISSA FINAL CANOE INSPECTOR, TOBI A 780.50 Sleep Disturbances 10/16/2010 MELISSA FINAL CANOE INSPECTOR, TOBI A 784.0 Headache 10/16/2010 MELISSA FINAL CANOE INSPECTOR, TOBI A V25.02 Contraceptives 12/28/2010 HAGEN DO, NORMA K 599.0 Urinary Tract Infection Site Not Specified 12/28/2010 HAGEN DO, NORMA K 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 12/28/2010 HAGEN DO, NORMA K 780.79 Other Malaise And Fatigue 12/28/2010 HAGEN DO, NORMA K 787.01 Nausea With Vomiting 12/28/2010 HAGEN DO, NORMA K 789.06 Abdominal Pain Epigastric 12/28/2010 HAGEN DO, NORMA K 599.0 Urinary Tract Infection Site Not Specified 12/28/2010 HAGEN DO, NORMA K 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 12/28/2010 HAGEN DO, NORMA K 780.79 Other Malaise And Fatigue 12/28/2010 HAGEN DO, NORMA K 787.01 Nausea With Vomiting 12/28/2010 HAGEN DO, NORMA K 789.06 Abdominal Pain Epigastric 12/28/2010 HAGEN DO, NORMA K 599.0 Urinary Tract Infection Site Not Specified 12/28/2010 HAGEN DO, NORMA K 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 12/28/2010 HAGEN DO, NORMA K 780.79 Other Malaise And Fatigue 12/28/2010 HAGEN DO, NORMA K 787.01 Nausea With Vomiting 12/28/2010 HAGEN DO, NORMA K 789.06 Abdominal Pain Epigastric 12/28/2010 HAGEN DO, NORMA K 599.0 Urinary Tract Infection Site Not Specified 12/28/2010 HAGEN DO, NORMA K 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 12/28/2010 HAGEN DO, NORMA K 780.79 Other Malaise And Fatigue 12/28/2010 HAGEN DO, NORMA K 787.01 Nausea With Vomiting 12/28/2010 HAGEN DO, NORMA K 789.06 Abdominal Pain Epigastric 12/28/2010 HAGEN DO, NORMA K 599.0 Urinary Tract Infection Site Not Specified 12/28/2010 HAGEN DO, NORMA K 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 12/28/2010 HAGEN DO, NORMA K 780.79 Other Malaise And Fatigue 12/28/2010 HAGEN DO, NORMA K 787.01 Nausea With Vomiting 12/28/2010 HAGEN DO, NORMA K 789.06 Abdominal Pain Epigastric 12/28/2010 HAGEN DO, NORMA K 599.0 Urinary Tract Infection Site Not Specified 12/28/2010 HAGEN DO, NORMA K 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 12/28/2010 HAGEN DO, NORMA K 780.79 Other Malaise And Fatigue 12/28/2010 HAGEN DO, NORMA K 787.01 Nausea With Vomiting 12/28/2010 HAGEN DO, NORMA K 789.06 Abdominal Pain Epigastric 12/28/2010 HAGEN DO, NORMA K 599.0 Urinary Tract Infection Site Not Specified 12/28/2010 HAGEN DO, NORMA K 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 12/28/2010 HAGEN DO, NORMA K 780.79 Other Malaise And Fatigue 12/28/2010 HAGEN DO, NORMA K 787.01 Nausea With Vomiting 12/28/2010 HAGEN DO, NORMA K 789.06 Abdominal Pain Epigastric 12/28/2010 HAGEN DO, NORMA K 599.0 Urinary Tract Infection Site Not Specified 12/28/2010 HAGEN DO, NORMA K 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 12/28/2010 HAGEN DO, NORMA K 780.79 Other Malaise And Fatigue 12/28/2010 HAGEN DO, NORMA K 787.01 Nausea With Vomiting 12/28/2010 HAGEN DO, NORMA K 789.06 Abdominal Pain Epigastric 12/28/2010 MELISSATOBI CHIN APRN A 599.0 Urinary Tract Infection Site Not Specified 12/28/2010 TOBI TORRES APRN A 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 12/28/2010 MELISSATOBI Burns APRN A 780.79 Other Malaise And Fatigue 12/28/2010 TOBI TORRES APRN A 787.01 Nausea With Vomiting 12/28/2010 TOBI TORRES APRN A 789.06 Abdominal Pain Epigastric 01/09/2011 HAGEN DO, NORMA K 381.81 Eustachian Tube Dysfunction 01/09/2011 HAGEN DO, NORMA K 724.3 Sciatica 01/09/2011 HAGEN DO, NORMA K 381.81 Eustachian Tube Dysfunction 01/09/2011 HAGEN DO, NORMA K 724.3 Sciatica 01/09/2011 HAGEN DO, NORMA K 381.81 Eustachian Tube Dysfunction 01/09/2011 HAGEN DO, NORMA K 724.3 Sciatica 01/09/2011 HAGEN DO, NORMA K 381.81 Eustachian Tube Dysfunction 01/09/2011 HAGEN DO, NORMA K 724.3 Sciatica 01/09/2011 HAGEN DO, NORMA K 381.81 Eustachian Tube Dysfunction 01/09/2011 HAGEN DO, NORMA K 724.3 Sciatica 01/09/2011 HAGEN DO, NORMA K 381.81 Eustachian Tube Dysfunction 01/09/2011 HAGEN DO, NORMA K 724.3 Sciatica 01/09/2011 HAGEN DO, NOMRA K 381.81 Eustachian Tube Dysfunction 01/09/2011 HAGEN DO, NORMA K 724.3 Sciatica 01/09/2011 HAGEN DO, NORMA K 381.81 Eustachian Tube Dysfunction 01/09/2011 HAGEN DO, NORMA K 724.3 Sciatica 01/09/2011 TOBI TORRES APRN A 381.81 Eustachian Tube Dysfunction 01/09/2011 TOBI TORRES APRN A 724.3 Sciatica 03/27/2011 HAGEN DO, NORMA K 720.2 Sacroiliitis Not Elsewhere Classified 03/27/2011 HAGEN DO, NORMA K 720.2 Sacroiliitis Not Elsewhere Classified 03/27/2011 HAGEN DO, NORMA K 720.2 Sacroiliitis Not Elsewhere Classified 03/27/2011 HAGEN DO, NORMA K 720.2 Sacroiliitis Not Elsewhere Classified 03/27/2011 HAGEN DO, NORMA K 720.2 Sacroiliitis Not Elsewhere Classified 03/27/2011 HAGEN DO, NORMA K 720.2 Sacroiliitis Not Elsewhere Classified 03/27/2011 HAGEN DO, NORMA K 720.2 Sacroiliitis Not Elsewhere Classified 03/27/2011 HAGEN DO, NORMA K 720.2 Sacroiliitis Not Elsewhere Classified 03/27/2011 MELISSA FINAL CANOE INSPECTOR, TOBI A 720.2 Sacroiliitis Not Elsewhere Classified 04/03/2011 HAGEN DO, NORMA K V72.41 Test Negative Result 04/03/2011 HAGEN DO, NORMA K V72.41 Test Negative Result 04/03/2011 HAGEN DO, NORMA K V72.41 Test Negative Result 04/03/2011 HAGEN DO, NORMA K V72.41 Test Negative Result 04/03/2011 HAGEN DO, NORMA K V72.41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 10/23/2016 ALBERTO MCCRAY L Ot Z79.899 OTHER [facility] (CURRENT) DRUG THERAPY 10/27/2016 ALBERTO MCCRAY Ot M06.9 RHEUMATOID ARTHRITIS, UNSPECIFIED 10/27/2016 ALBERTO MCCRAY Ot M79.631 PAIN IN RIGHT FOREARM 10/27/2016 ALBERTO MCCRAY L Ot Z79.899 OTHER [facility] (CURRENT) DRUG THERAPY Procedures Code Description Performed By Performed On 73.59 04/14/2012 23844 URINE TEST (IN-HOUSE) 05/14/2012 71291 CULTURE UROGENITAL 05/18/2012 84698 US BREAST(S) ULTRASOUND, BOTH 06/18/2012 22540 US UPPER EXTREMITY ULTRASOUND 06/18/2012 22717 TRIGGER POINT INJ/1-2 MUS 07/30/2012 94449 TRICHOMONAS (IN-HOUSE) 08/18/2012 68706 CULTURE UROGENITAL 08/19/2012 50694 HERPES SIMPLEX CULTURE 08/19/2012 49503 GC/CHLAM PROBE (STATE) 08/19/2012 47774 US PELVIC COMPL (REFLEX CPT- 20598) 06/09/2013 60686 GC/CHLAM PROBE (STATE) 06/09/2013 01832 PAP SMEAR 2012 Q0091 PAP SMEAR OBTAIN SMEAR 06/09/2013 38401 TRICHOMONAS (IN-HOUSE) 06/09/2013 33254 CULTURE UROGENITAL 06/13/2013 52178 TEST, URINE (IN-HOUSE) 06/09/2014 Results Encounters ACCT No. Visit Date/Time Discharge Status Pt. Type Provider Facility Loc./Unit Complaint [id number] 06/09/2014 14:31:00 06/09/2014 23: 59:59 CLS Outpatient TOBI TORRES APRN Lorie [id number] 03/01/2014 10:09:00 03/01/2014 23: 59:59 CLS Outpatient NORMA HAGEN DO [id number] 08/26/2013 09:51:00 08/26/2013 23: 59:59 CLS Outpatient NORMA HAGEN DO [id number] 06/09/2013 15:58:00 06/09/2013 23: 59:59 CLS Outpatient NORMA HAGEN DO [id number] 01/19/2013 11:57:00 01/19/2013 23: 59:59 CLS Outpatient NORMA HAGEN DO [id number] 08/18/2012 16:04:00 08/18/2012 23: 59:59 CLS Outpatient NORMA HAGEN DO [id number] 07/30/2012 10:58:00 07/30/2012 23: 59:59 CLS Outpatient NORMA HAGEN DO [id number] 06/18/2012 09:13:00 06/18/2012 23: 59:59 [place] [id number] 05/14/2012 16:16:00 05/14/2012 23: 59:59 CLS Outpatient NORMA HAGEN DO
--- OUTSIDE RECORDS SUMMARY | 2016-11-25 05:59 | XMS REPORT ---
Author Author BENITO HORNER [facility] eClinicalWorks Address Unknown Phone Unavailable Care Team Providers Care Health Information Technologist Name Role Phone BENITO HORNER CP Unavailable Allergies, Adverse Reactions, Alerts Substance Reaction Event Type N.K.D.A. 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 Medications Medication Code System Code Instructions Start Date End Date Status Dosage Flexeril NDC 0 not defined Neurontin [facility] [address]-25 Mar 01, 2014 by oral route Ortho Evra [facility] [address]-40 150-35 mcg/24 hr Transdermal Once a week for 3 weeks Jun 14, 2014 apply 1 patch by Transdermal route 1 time per week for 3 weeks then patch-free for 1 week Hydrocodone-Acetaminophen [facility] [address]-20 5-325 mg Jun 09, 2014 take 1 tablet by oral route every 4 hours as needed for pain Procedures Procedure Coding System Code Date Office Visit, Est Pt., Level 3 CPT-4 79251 Jun 14, 2015 URINE TEST CPT-4 35050 Jun 14, 2015 Vital Signs Date/Time: Jun 14, 2015 Temperature 97.5 F Weight 119.4 lbs Height 64 in BMI 20.49 Index Blood Pressure Diastolic 62 mmHg Blood Pressure Systolic 108 mmHg Cardiac Monitoring Heart Rate 80 bpm Results No Known Results Summary Purpose eClinicalWorks Submission
--- OUTSIDE RECORDS SUMMARY | 2016-11-25 05:59 | XMS REPORT ---
Author Author Dre Ngo [facility] Address [address] [place], [place] [address] Care Team Providers Care Electronic Equipment Repairer Name Role Phone Dre Ngo PCP Unavailable Allergies and Adverse Reactions Name Reaction Notes tramadol vomiting Cipro rash Mobic stomach pains/ulcers Plan of Treatment Not available. Medications Active Name Start Date Estimated Completion Date SIG Comments gabapentin 600 mg oral tablet 09/04/2016 01/02/2017 take 1 tablet (600 mg) by oral route 3 times per day for 30 days [place] 10-325 mg oral tablet 09/04/2016 take 1 tablet by oral route every 6 hours as needed for pain Problem List Not available. Vital Signs Date Time BP-Sys(mm[Hg] BP-Alta(mm[Hg]) HR(bpm) RR(rpm) Temp WT HT HC BMI BSA BMI Percentile O2 Sat(%) 09/04/2016 8:33:00 AM 118 mmHg 68 mmHg 83 bpm 18 rpm 97.9 F 113 lbs 64 in 19.40 kg/m2 1.52 m2 97 % Social History Name Description Comments Alcohol Never Tobacco Never smoker History of Procedures Not available. Results Summary Not available. History Of Immunizations Not available. History of Past Illness Name Date of Onset Comments Arthritis sciatica Toe fracture, right Sep 04 2016 8:35AM Lumbago with sciatica, right side Sep 04 2016 8:35AM Other chronic pain Sep 04 2016 8:35AM Payers Not available. History of Encounters Visit Date Visit Type Provider 09/04/2016 Office visit Dre Ngo MD
--- OUTSIDE RECORDS SUMMARY | 2016-11-25 05:59 | XMS REPORT ---
Author Author BENITO HORNER [facility] eClinicalWorks Address Unknown Phone Unavailable Care Team Providers Care Brewing Technician Name Role Phone BENITO HORNER CP Unavailable Allergies, Adverse Reactions, Alerts Substance Reaction Event Type Tramadol HCl vomiting Drug Allergy Problems Problem Type Condition Code Onset Dates Condition Status Assessment Routine screening for STI (sexually transmitted infection) Z11.3 Active Assessment Encounter for screening for malignant neoplasm of cervix Z12.4 Active Assessment Vaginal discharge N89.8 Active Problem Menstrual migraine without status migrainosus, not intractable G43.829 Active Problem History of anxiety Z86.59 Active Problem Encounter for prescription for transdermal contraceptive Z30.49 Active Problem Encounter for surveillance of transdermal contraceptive Z30.49 Active Assessment Well woman exam Z01.419 Active Problem Inflammatory disease of breast N61 Active Problem Neoplasm of unspecified nature of bone, soft tissue, 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 Assessment History of anxiety Z86.59 Active Assessment Menstrual migraine without status migrainosus, not intractable G43.829 Active Assessment Nausea with vomiting, unspecified R11.2 Active Assessment Encounter for prescription for transdermal contraceptive Z30.49 Active Medications Medication Code System Code Instructions Start Date End Date Status Dosage Flexeril NDC 0 not defined Naproxen [facility] [address]-81 250 MG Orally Twice a day 1 tablet Neurontin [facility] [address]-37 Mar 01, 2014 by oral route Flagyl [facility] [address]-17 500 MG Orally 2 times a day Aug 10, 2015 Aug 17, 2015 1 tablet Ortho Evra NDC 0 150-35 mcg/24 hr Transdermal Once a week for 3 weeks Jun 14, 2014 apply 1 patch by Transdermal route 1 time per week for 3 weeks then patch-free for 1 week Hydrocodone-Acetaminophen [facility] [address]-92 5-325 mg Jun 09, 2014 take 1 tablet by oral route every 4 hours as needed for pain Procedures Procedure Coding System Code Date TRICHOMONAS ASSAY W/OPTIC CPT-4 03229 Aug 10, 2015 URINE TEST CPT-4 04028 Aug 10, 2015 SPECIMEN HANDLING CPT-4 10008 Aug 10, 2015 Preventive Care Est Pt. Age 18-39 CPT-4 21014 Aug 10, 2015 Vital Signs Date/Time: Aug 10, 2015 Temperature 98.2 F Weight 114.7 lbs Height 64 in BMI 19.69 Index Blood Pressure Diastolic 64 mmHg Blood Pressure Systolic 118 mmHg Cardiac Monitoring Heart Rate 82 bpm Results Name Result Date Reference Range Unit Abnormality Flag PDF Report ----PDF Report1 [facility] [id number] TEST, URINE (IN HOUSE) ----RESULTS negative [id number] ----Lot # [id number] ----Control + [id number] ----Exp date [id number] TRICHOMONAS (IN HOUSE) ----Exp date [id number] ----Control + [id number] ----Lot # [id number] ----TRICHOMONAS negative [id number] Summary Purpose eClinicalWorks Submission
--- OUTSIDE RECORDS SUMMARY | 2016-11-25 05:59 | XMS REPORT ---
Author Author RANDAL HUSSEIN Organization 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 06617078 Assessment control counseling Z30.9 Jun, Active 38533388 Problem History of anxiety Z86.59 Active 405605766 Problem Inflammatory disease of breast N61 Active 705774855 ALLERGIES Substance Reaction Event Type Date Status Tramadol HCl vomiting Drug Allergy Jun, Active SOCIAL HISTORY No smoking Hx information available PLAN OF CARE VITAL SIGNS Height 64 in 2016-06-14 Weight 112.8 lbs 2016-06-14 Heart Rate 76 bpm 2016-06-14 Respiratory Rate 16 2016-06-14 BMI 19.36 kg/m2 2016-06-14 Blood pressure systolic 102 mmHg 2016-06-14 Blood pressure diastolic 58 mmHg 2016-06-14 MEDICATIONS Medication Instructions Dosage Frequency Start Date End Date Duration Status Naproxen 250 MG Orally Twice a day 1 tablet 12h Active Ortho Evra 150-35 mcg/24 hr Transdermal Once a week for 3 weeks apply 1 patch by Transdermal route 1 time per week for 3 weeks then patch-free for 1 week Jun, 1 month Active Flexeril Active Hydrocodone-Acetaminophen 5-325 mg take 1 tablet by oral route every 4 hours as needed for pain May, Active Neurontin 300 MG Orally 2 times a day 1 capsule 12h Feb, Active RESULTS Name Result Date Reference Range TEST, URINE (IN HOUSE) 2016-06-14 RESULTS Negative Lot # [id number] Control + Exp date PROCEDURES Procedure Date Ordered Related Diagnosis Body Site URINE TEST Jun 14, 2016 Office Visit, Est Pt., Level 3 Jun 14, 2016 IMMUNIZATIONS No Known Immunizations
== END 2016-10-21 12:24 | disposition home or self-care (01) ==
LOC: EDUNIT# 11:22 → ER 11:23
DX: M06.9 Rheumatoid arthritis, unspecified (principal); Z79.899 Other long term (current) drug therapy
CPT/HCPCS: 99282

== ENCOUNTER 2017-01-18 13:23 | Emergency (ER) | payer SELFPAY ==
[~2017-01-18] VITALS: Ht 162.6 cm; Wt 51.7 kg
[~2017-01-18 13:23] MED LIST changes: +HYDR-3820 PO; +PRD20T PO
[2017-01-18] MEDS ORDERED: methylPREDNISolone 125 MG (Solu-MEDROL) VIAL IVP ONE (13:45)
[2017-01-18] MEDS ORDERED: FAMOTIDINE 20MG/2ML IV (PEPCID) IVP ONE (13:45)
[2017-01-18] MEDS ORDERED: diphenhydrAMINE 50 MG/ML INJ (BENADRYL) IVP ONE (13:45)
--- NOTE | 2017-01-18 13:54 | ED Integumentary General ---
General Chief Complaint: Allergic Reaction Stated Complaint: ALLERGIC RXN TO MED Source: patient Exam Limitations: no limitations History of Present Illness Time seen by provider: 13:53 Initial Comments To ER with reports of an allergic reaction. Patient was at her primary care provider's office when she was given Tylenol with codeine just prior to arrival. Shortly thereafter she developed views erythema with itching all over. She feels like her feet and all body is "on fire". Timing/Duration: just prior to arrival Severity: moderate Modifying Factors: improves with scratching Associated Symptoms: denies symptoms Allergies and Home Medications Allergies Coded Allergies: cephalexin (Verified Allergy, Severe, RASH, 07/28/16) codeine (Unverified Allergy, Mild, HIVES, FLUSHING, BURNING FEELING, ) tramadol (Verified Adverse Reaction, Unknown, VOMITING, 07/28/16) Home Medications Gabapentin 300 Mg Capsule, 300 MG PO HS, #21 (Reported) Naproxen 500 Mg Tablet, 500 MG PO, (Reported) Norelgestromin/Ethin.estradiol 1 Each Patch.tdwk, #3 (Reported) Constitutional: see HPI EENTM: see HPI Respiratory: no symptoms reported Cardiovascular: no symptoms reported Genitourinary: no symptoms reported Musculoskeletal: no symptoms reported Skin: see HPI Psychiatric/Neurological: No Symptoms Reported Endocrine: No Symptoms Reported Past Nludail-Avggmu-Xrrxtl Hx Patient Social History Recent Foreign Travel: No Contact w/Someone Who Travel: No Recent Hopitalizations: No Immunizations Up To Date Tetanus Booster (TDap): Less than 5yrs Date of Influenza Vaccine: Apr 27, 2014 Surgeries HX Surgeries: Yes (WISDOM TEETH REMOVED) Surgeries: Gallbladder Respiratory Hx Respiratory Disorders: No Cardiovascular Hx Cardiac Disorders: No Neurological Hx Neurological Disorders: Yes Neurological Disorders: Headaches /Migraines 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 System Hx 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 Disorders: No Sexually Transmitted Disease: No HIV/AIDS: No Female 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 Disorders: Ovarian Cyst Genitourinary Hx Genitourinary Disorders: No Gastrointestinal Hx Gastrointestinal Disorders: No Musculoskeletal Hx Musculoskeletal Disorders: Yes Musculoskeletal Disorders: Arthritis, Chronic Back Pain Endocrine Hx Endocrine Disorders: No HEENT HX ENT Disorders: Yes (crowns) Cancer Hx Cancer: No Psychosocial Hx Psychiatric Problems: No Integumentary HX Skin/Integumentary Disorder: No Skin/Integumentary Disorders: Recent Skin Changes Blood Transfusions Hx Blood Disorders: No Adverse Reaction to a Blood Tr: No Family Medical History Significant Family History: No Pertinent Family Hx Physical Exam Vital Signs Vital Sign - Last 12Hours 01/18/17 13:59 Temp 98.3 Pulse 83 Resp 20 B/P (MAP) 105/91 Pulse Ox 100 O2 Delivery Room Air Capillary Refill : General Appearance: WD/WN, no apparent distress, other (diffusely erythematous , intensely scratching at herself) HEENT: PERRL/EOMI, normal ENT inspection Neck: non-tender, full range of motion Cardiovascular: regular rate, rhythm, no murmur Respiratory: normal breath sounds, no respiratory distress, no accessory muscle use Gastrointestinal: non tender, soft Extremities: normal range of motion, non-tender Neurologic/Psychiatric: alert, normal mood/affect, oriented x 3 Skin: normal color, warm/dry Skin Problem Character: erythema Progress/Results/Core Measures Results/Orders My Orders Orders - ELIUD GALEAS APRN Saline Lock/Iv-Start (01/18/17 13:42) Diphenhydramine Injection (Benadryl Inje (01/18/17 13:45) Famotidine Injection (Pepcid Injection) (01/18/17 13:45) Methylprednisolone Sod Succ (Solu-Medrol (01/18/17 13:45) Medications Given in ED Current Medications Medications Dose Ordered Sig/Greg Route Start Time Stop Time Status Last Admin Dose Admin Diphenhydramine HCl 25 mg ONCE ONCE IVP 01/18/17 13:45 01/18/17 13:46 DC 01/18/17 13:48 25 MG Famotidine 20 mg ONCE ONCE IVP 01/18/17 13:45 01/18/17 13:46 DC 01/18/17 13:49 20 MG Methylprednisolone Sodium Succinate 125 mg ONCE ONCE IVP 01/18/17 13:45 01/18/17 13:46 DC 01/18/17 13:50 125 MG Vital Signs/I&O Vital Sign - Last 12Hours 01/18/17 13:59 Temp 98.3 Pulse 83 Resp 20 B/P (MAP) 105/91 Pulse Ox 100 O2 Delivery Room Air Departure Communication Progress Notes 1425- she is no longer erythematous. Denies itching. Vital stable. We will discharge to home. Impression Impression: Primary Impression: Allergic reaction Disposition: 01 HOME, SELF-CARE Condition: Stable Departure-Patient Inst. Decision time for Depature: 14:07 Referrals: JOEY SYED DO (PCP/Family) Primary Care Physician Patient Instructions: Anaphylaxis (DC) Add. Discharge Instructions: 1. Take steroids as directed 2. Benadryl every 4-6 hours as needed for itching All discharge instructions reviewed with patient and/or family. Voiced understanding. Scripts Prednisone (Prednisone) 20 Mg Tab 20 MG PO BID, #4 TAB Prov: ELIUD GALEAS APRN 01/18/17 ELIUD GALEAS APRN Jan 18, 2017 13:54
[2017-01-18] MEDS ORDERED: PRD20T PO (14:24)
[2017-01-18 14:30] VITALS: BP 100/63
--- OUTSIDE RECORDS SUMMARY | 2017-01-22 07:32 | XMS REPORT ---
Author Author Dre Ngo [facility] Address [address] [place], [place] [address] Care Team Providers Care Pipe Coverer Name Role Phone Dre Ngo PCP Unavailable Allergies and Adverse Reactions Name Reaction Notes tramadol vomiting Cipro rash Mobic stomach pains/ulcers Plan of Treatment Not available. Medications Active Name Start Date Estimated Completion Date SIG Comments gabapentin 600 mg oral tablet 09/04/2016 01/02/2017 take 1 tablet (600 mg) by oral route 3 times per day for 30 days [place] 10-325 mg oral tablet 10/22/2016 take 1 tablet by oral route every 6 hours as needed for pain Problem List Not available. Vital Signs Date Time BP-Sys(mm[Hg] BP-Alta(mm[Hg]) HR(bpm) RR(rpm) Temp WT HT HC BMI BSA BMI Percentile O2 Sat(%) 10/22/2016 4:08:00 PM 110 mmHg 74 mmHg 96 bpm 16 rpm 98.8 F 116 lbs 64 in 19.91 kg/m2 1.54 m2 97 % 09/04/2016 8:33:00 AM 118 mmHg 68 mmHg 83 bpm 18 rpm 97.9 F 113 lbs 64 in 19.3962 kg/m 1.5213 m 97 % Social History Name Description Comments Alcohol Never Tobacco Never smoker History of Procedures Not available. Results Summary Not available. History Of Immunizations Not available. History of Past Illness Name Date of Onset Comments Arthritis sciatica Toe fracture, right Sep 04 2016 8:35AM Lumbago with sciatica, right side Sep 04 2016 8:35AM Other chronic pain Sep 04 2016 8:35AM Low Back Pain Oct 22 2016 4:13PM Payers Not available. History of Encounters Visit Date Visit Type Provider 10/22/2016 Office visit Dre Ngo MD 09/04/2016 Office visit Dre Ngo MD
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
== END 2017-01-18 14:34 | disposition home or self-care (01) ==
LOC: EDUNIT# 13:23 → ER 13:27
DX: T39.1X5A Adverse effect of 4-Aminophenol derivatives, initial encounter (principal); T40.2X5A Adverse effect of other opioids, initial encounter; G43.909 Migraine, unspecified, not intractable, without status migrainosus; M19.90 Unspecified osteoarthritis, unspecified site
CPT/HCPCS: 96374; 96375

== ENCOUNTER → 2017-05-28 | Outpatient (CLI) | payer MEDICAID ==
--- NOTE | 2017-05-28 14:29 | Diagnostic Imaging Report ---
INDICATION: survey. TECHNIQUE: Multiple real-time grayscale images were obtained over the gravid uterus. COMPARISON: None. FINDINGS: A de leon intrauterine gestation is in breech position. Measurements are congruent and correlate with an age 22 weeks 1 day for sonographic date of confinement of 09/30/2017. The placenta is at the lower uterine segment and covers the closed internal os, consistent with complete previa. The cervix measured about 3.3 cm however its length may be measuring short owing to the overlying placenta. Amniotic fluid volume is within normal limits. No pathological finding at the anatomical survey. IMPRESSION: Breech positioning of de leon viable IUP measuring 22 weeks 1 day. Lower uterine segmental positioning of the cervix without abruption showing complete previa. Biometrical measurements are as follows: Biparietal 5.32 cm, age 22 weeks 2 days. Head circumference 19.89 cm, age 22 weeks 1 days. Abdominal circumference 17.78 cm, age 22 weeks 3 days. Femur length 3.58 cm, age 21 weeks 3 days. Sonographic estimate age: 22 weeks 1 days. Sonographic estimated date of delivery: 09/30/2016. Estimated Weight: 464 gm (+/- 68 gm). LMP percentile: 6%. heart rate: 160 beats per minute. number: 1 of 1. Dictated by: Dictated on workstation # [id number]
== END ==
LOC: RAD 10:09
PROVIDERS: ATTEND Family Medicine
DX: Z36.87 Encounter for antenatal screening for uncertain dates (principal); Z3A.22 22 weeks gestation of pregnancy
CPT/HCPCS: 76805

== ENCOUNTER 2017-07-03 23:58 | Inpatient (IN) | payer MEDICAID ==
[~2017-07-03] VITALS: Ht 162.6 cm; Wt 57.2 kg
[~2017-07-03 23:58] MED LIST changes: -NAPR500T3 PO; +NAPR500T4 PO
[2017-07-04] VITALS (10 sets, daily range): BP systolic 129–148; BP diastolic 63–97
[2017-07-04] MEDS ORDERED: ZOLPIDEM 5 MG (AMBIEN) TAB PO ONE (00:15)
[2017-07-04] MEDS ORDERED: D5 LR IV SOLUTION 1,000 ML IV ONE (00:16)
[2017-07-04 00:46] LABS: BASOPHILS % (AUTO) 0 % (0-10); EOSINOPHILS % (AUTO) 1 % (0-10); LYMPHOCYTES # (AUTO) 1.8 X 10^3 (1.0-4.0); LYMPHOCYTES % (AUTO) 34 % (12-44); MEAN CORPUSCULAR HEMOGLOBIN 34 PG (25-34); MEAN CORPUSCULAR HGB CONC 33 G/DL (32-36); MEAN CORPUSCULAR VOLUME 103 FL (80-99); MONOCYTES # (AUTO) 0.3 X 10^3 (0.0-1.0); MONOCYTES % (AUTO) 6 % (0-12); NEUTROPHILS # (AUTO) 3.1 X 10^3 (1.8-7.8); NEUTROPHILS % (AUTO) 59 % (42-75); PLATELET COUNT 268 10^3/uL (130-400); RED BLOOD COUNT 2.64 10^6/uL (4.35-5.85); RED CELL DISTRIBUTION WIDTH 14.3 % (10.0-14.5); WHITE BLOOD COUNT 5.2 10^3/uL (4.3-11.0)
[2017-07-04] MEDS ORDERED: PREN-142 PO (00:49)
[2017-07-04] MEDS ORDERED: HYDR-3454 PO (00:49)
[2017-07-04] MEDS: D5 LR IV SOLUTION 1,000 ML IV SCH ×2 (00:50→06:27)
[2017-07-04 01:09] LABS: ALANINE AMINOTRANSFERASE 8 U/L (0-55); ANION GAP 11 MMOL/L (5-14); ASPARTATE AMINO TRANSFERASE 14 U/L (5-34); BILIRUBIN,TOTAL 0.5 MG/DL (0.1-1.0); BLOOD UREA NITROGEN 10 MG/DL (7-18); BUN/CREATININE RATIO 21; CALCIUM 8.2 MG/DL (8.5-10.1); CARBON DIOXIDE 19 MMOL/L (21-32); CHLORIDE 108 MMOL/L (98-107); CREATININE SERUM 0.47 MG/DL (0.60-1.30); GFR ESTIMATED > 60; GLUCOSE 72 MG/DL (70-105); POTASSIUM 3.3 MMOL/L (3.6-5.0); SODIUM 138 MMOL/L (135-145); TOTAL PROTEIN 5.8 GM/DL (6.4-8.2)
[2017-07-04] MEDS ORDERED: INFLUENZA TRIvalent 2017-2018 0.5 ML/45 MCG SYR IM ONE (07:15)
--- NOTE | 2017-07-04 07:32 | History & Physical-OB ---
OB - Chief Complaint & HPI Date/Time Date of Admission: Date of Admission: Time Seen by Provider: 07:27 Chief Complaint/History OB-Reason for Admission/Chief: Hx : 5 Hx Para: 3 Expected Date of Delivery: Oct 04, 2017 Gestational Age in Weeks: 26 Other reason for admission: patient presented with bright red vaginal bleeding, her was complicated by a known complete placenta previa. She is currently 26 6/7 gestation. Admission Nurse Assessment Rev: Yes History of Labs Laboratory Tests Test 07/04/17 00:30 Range/Units White Blood Count 5.2 4.3-11.0 10^3/uL Red Blood Count 2.64 L 4.35-5.85 10^6/uL Hemoglobin 8.9 L 11.5-16.0 G/DL Hematocrit 27 L 35-52 % Mean Corpuscular Volume 103 H 80-99 FL Mean Corpuscular Hemoglobin 34 25-34 PG Mean Corpuscular Hemoglobin Concent 33 32-36 G/DL Red Cell Distribution Width 14.3 10.0-14.5 % Platelet Count 268 130-400 10^3/uL Mean Platelet Volume 9.0 7.4-10.4 FL Neutrophils (%) (Auto) 59 42-75 % Lymphocytes (%) (Auto) 34 12-44 % Monocytes (%) (Auto) 6 0-12 % Eosinophils (%) (Auto) 1 0-10 % Basophils (%) (Auto) 0 0-10 % Neutrophils # (Auto) 3.1 1.8-7.8 X 10^3 Lymphocytes # (Auto) 1.8 1.0-4.0 X 10^3 Monocytes # (Auto) 0.3 0.0-1.0 X 10^3 Eosinophils # (Auto) 0.0 0.0-0.3 10^3/uL Basophils # (Auto) 0.0 0.0-0.1 10^3/uL Sodium Level 138 135-145 MMOL/L Potassium Level 3.3 L 3.6-5.0 MMOL/L Chloride Level 108 H 98-107 MMOL/L Carbon Dioxide Level 19 L 21-32 MMOL/L Anion Gap 11 5-14 MMOL/L Blood Urea Nitrogen 10 7-18 MG/DL Creatinine 0.47 L 0.60-1.30 MG/DL Estimat Glomerular Filtration Rate > 60 BUN/Creatinine Ratio 21 Glucose Level 72 70-105 MG/DL Calcium Level 8.2 L 8.5-10.1 MG/DL Total Bilirubin 0.5 0.1-1.0 MG/DL Aspartate Amino Transf (AST/SGOT) 14 5-34 U/L Alanine Aminotransferase (ALT/SGPT) 8 0-55 U/L Alkaline Phosphatase 70 40-136 U/L Total Protein 5.8 L 6.4-8.2 GM/DL Albumin 3.0 L 3.2-4.5 GM/DL Allergies and Home Medications Allergies Coded Allergies: cephalexin (Verified Allergy, Severe, RASH, 07/28/16) codeine (Verified Allergy, Mild, HIVES, FLUSHING, BURNING FEELING, ) tramadol (Verified Adverse Reaction, Unknown, VOMITING, 07/28/16) Home Medications Hydrocodone/Acetaminophen 1 Each Tablet, 1 EACH PO PRN, (Reported) Vit No.124/Iron/FA 1 Each Tablet, 1 EACH PO DAILY, (Reported) OB - History Hx of Present Care: Yes Ultrasounds: Abnormal US findings Abnormal Ultrasound Findings: complete placenta previa Obstetrical Complications: Autoimmune Disease (history of rheumatoid arthritis) , Other (abnormal quad screen with normal PCR) Medical Complications: None Information Induced Hypertension: No Maternal Gestational Diabetes: No Obstetrical History Hx : 5 Hx Para: 3 Hx Termination: Yes Hx Total # of Abortions (Spona: 1 Hx Multiple Gestation: No Hx Stillbirth: No Hx Complication: No Hx Induced Hypertens: No Hx Maternal Gestational Diabet: No Delivery History Hx Dystocia: No Hx Large For Gestational Age I: No Hx Small for Gestational Age I: No Hx Section: No Hx Vaginal Delivery Post C-Sec: No Hx Blood Disorders: No Adverse Rxn to Tranfusion: No Social History/Family History HIV/AIDS: No Recent Infectious Disease Expo: No Sexually Transmitted Disease: No Immunizations Tetanus Booster (TDap): Less than 5yrs Date of Influenza Vaccine: Apr 27, 2014 OB - Admission Exam Physical Exam Vitals: Vital Signs 07/04/17 04:40 Temp 98.4 Pulse 93 Resp 18 B/P (MAP) 136/79 (98) O2 Delivery Room Air Labs Laboratory Tests Test 07/04/17 00:30 Range/Units White Blood Count 5.2 4.3-11.0 10^3/uL Red Blood Count 2.64 L 4.35-5.85 10^6/uL Hemoglobin 8.9 L 11.5-16.0 G/DL Hematocrit 27 L 35-52 % Mean Corpuscular Volume 103 H 80-99 FL Mean Corpuscular Hemoglobin 34 25-34 PG Mean Corpuscular Hemoglobin Concent 33 32-36 G/DL Red Cell Distribution Width 14.3 10.0-14.5 % Platelet Count 268 130-400 10^3/uL Mean Platelet Volume 9.0 7.4-10.4 FL Neutrophils (%) (Auto) 59 42-75 % Lymphocytes (%) (Auto) 34 12-44 % Monocytes (%) (Auto) 6 0-12 % Eosinophils (%) (Auto) 1 0-10 % Basophils (%) (Auto) 0 0-10 % Neutrophils # (Auto) 3.1 1.8-7.8 X 10^3 Lymphocytes # (Auto) 1.8 1.0-4.0 X 10^3 Monocytes # (Auto) 0.3 0.0-1.0 X 10^3 Eosinophils # (Auto) 0.0 0.0-0.3 10^3/uL Basophils # (Auto) 0.0 0.0-0.1 10^3/uL Sodium Level 138 135-145 MMOL/L Potassium Level 3.3 L 3.6-5.0 MMOL/L Chloride Level 108 H 98-107 MMOL/L Carbon Dioxide Level 19 L 21-32 MMOL/L Anion Gap 11 5-14 MMOL/L Blood Urea Nitrogen 10 7-18 MG/DL Creatinine 0.47 L 0.60-1.30 MG/DL Estimat Glomerular Filtration Rate > 60 BUN/Creatinine Ratio 21 Glucose Level 72 70-105 MG/DL Calcium Level 8.2 L 8.5-10.1 MG/DL Total Bilirubin 0.5 0.1-1.0 MG/DL Aspartate Amino Transf (AST/SGOT) 14 5-34 U/L Alanine Aminotransferase (ALT/SGPT) 8 0-55 U/L Alkaline Phosphatase 70 40-136 U/L Total Protein 5.8 L 6.4-8.2 GM/DL Albumin 3.0 L 3.2-4.5 GM/DL OB - Assessment/Plan/Diagnosis Assessment Assessment: other (26 6/7 wks, complete previa with active bleed) Plan Other Plan -continuous EFM -Saline lock IV -Regular Diet -Resume home meds -Bedrest with BRP -US today -Beta today, repeat x1 in 24 hours for lung maturity -repeat CBC tomorrow -SCDs for DVT prophylaxis -physical therapy -monitor in hospital until no vaginal bleeding for at least 24 hours, then home on bedrest -discussed with patient risk of , and that if condition changes we would make every attempt to transfer her to a facility with a higher level of care where she and her baby could stay together, if she was stable enough to do so, although that may not be possible; understanding verbalized. -monitor closely, patient at high risk for development of further complications ANDREA ASHTON DO Jul 04, 2017 07:32
[2017-07-04] MEDS ORDERED: HYDROcodone/APAP 5 MG/325 MG (LORTAB) TAB PO PRN (07:45)
[2017-07-04] MEDS ORDERED: D5 LR IV SOLUTION 1,000 ML IV SCH (08:07)
[2017-07-04] MEDS ORDERED: MAGNESIUM 4 GM/100 ML IVPB 100 ML IV SCH (08:15)
[2017-07-04] MEDS ORDERED: CALCIUM GLUC. 10% 4.65 MEQ/10 ML VIAL IV PRN (08:15)
[2017-07-04] MEDS ORDERED: MAGNESIUM SULFATE DRIP 500 ML IV SCH (08:37)
[2017-07-04] MEDS ORDERED: TERBUTALINE INJ 1 MG/ML (BRETHINE) AMP SC ONE (08:45)
[2017-07-04] MEDS ORDERED: BETAMETHASONE ACE/NA PHOS 6 MG/ML (CELESTONE SOLUSPAN) IM SCH (09:00)
--- NOTE | 2017-07-04 09:09 | Discharge Summary ---
Diagnosis/Chief Complaint Date of Admission Jul 04, 2017 at 7:35 am Date of Discharge Jul 04, 2017 Admission Diagnosis Admission Diagnosis Placenta previa with bleeding contractions 26 weeks gestation Discharge Diagnosis Placenta previa with bleeding- spotting only after admission, but continued spotting throughout and contractions as noted below, so discussed with Dr. Bower at [facility] and she was accepted in transfer -Second IV placed, type and screen done, hemoglobin 8.9 on admission, Dr. Michael notified of patient status contractions- rj every 2 minutes regularly and with mild to moderate intensity, due to previa no cervical exam performed, transfer as noted above -Magnesium 4 gram bolus, followed by 2 grams per hour started, stevenson catheter placed per Magnesium protocol -Betamethasone given 26 weeks gestation Chief Complaint/HPI Chief Complaint/HPI 32 yo at 26w6d with complicated by abnormal quad screen ( normal cell free DNA testing) and placenta previa presented to L&D with bleeding noted at home. She reports back pain all day yesterday, laid down to take a nap and when she woke up and went to the bathroom saw pink in her pants and then had bloody urine, followed by bright red blood running down her leg so she came immediately to the hospital. +FM. Discharge Summary-Simple/Stand Discharge Physical Examination Allergies: Coded Allergies: cephalexin (Verified Allergy, Severe, RASH, 07/28/16) codeine (Verified Allergy, Mild, HIVES, FLUSHING, BURNING FEELING, ) tramadol (Verified Adverse Reaction, Unknown, VOMITING, 07/28/16) Vitals & I&Os Vital Sign - Last 12Hours Date Time Temp Pulse Resp B/P (MAP) Pulse Ox O2 Delivery O2 Flow Rate FiO2 07/04/17 04:40 98.4 93 18 136/79 (98) Room Air General Appearance: Alert, No Acute Distress Abdominal: Other ([place] with 4-5 ctx/10 min, FHT 150, good variability) Neuro: Normal Speech Psych/Mental Status: Mental Status NL Hospital Course See final discharge diagnosis. Labs Laboratory Tests Test 07/04/17 00:30 07/04/17 08:58 Range/Units White Blood Count 5.2 4.3-11.0 10^3/uL Red Blood Count 2.64 L 4.35-5.85 10^6/uL Hemoglobin 8.9 L 11.5-16.0 G/DL Hematocrit 27 L 35-52 % Mean Corpuscular Volume 103 H 80-99 FL Mean Corpuscular Hemoglobin 34 25-34 PG Mean Corpuscular Hemoglobin Concent 33 32-36 G/DL Red Cell Distribution Width 14.3 10.0-14.5 % Platelet Count 268 130-400 10^3/uL Mean Platelet Volume 9.0 7.4-10.4 FL Neutrophils (%) (Auto) 59 42-75 % Lymphocytes (%) (Auto) 34 12-44 % Monocytes (%) (Auto) 6 0-12 % Eosinophils (%) (Auto) 1 0-10 % Basophils (%) (Auto) 0 0-10 % Neutrophils # (Auto) 3.1 1.8-7.8 X 10^3 Lymphocytes # (Auto) 1.8 1.0-4.0 X 10^3 Monocytes # (Auto) 0.3 0.0-1.0 X 10^3 Eosinophils # (Auto) 0.0 0.0-0.3 10^3/uL Basophils # (Auto) 0.0 0.0-0.1 10^3/uL Sodium Level 138 135-145 MMOL/L Potassium Level 3.3 L 3.6-5.0 MMOL/L Chloride Level 108 H 98-107 MMOL/L Carbon Dioxide Level 19 L 21-32 MMOL/L Anion Gap 11 5-14 MMOL/L Blood Urea Nitrogen 10 7-18 MG/DL Creatinine 0.47 L 0.60-1.30 MG/DL Estimat Glomerular Filtration Rate > 60 BUN/Creatinine Ratio 21 Glucose Level 72 70-105 MG/DL Calcium Level 8.2 L 8.5-10.1 MG/DL Total Bilirubin 0.5 0.1-1.0 MG/DL Aspartate Amino Transf (AST/SGOT) 14 5-34 U/L Alanine Aminotransferase (ALT/SGPT) 8 0-55 U/L Alkaline Phosphatase 70 40-136 U/L Total Protein 5.8 L 6.4-8.2 GM/DL Albumin 3.0 L 3.2-4.5 GM/DL Discharge Instructions to patient/family Please see electronic discharge instructions given to patient. Discharge Medications Reviewed and agree with Discharge Medication list on patient's Discharge Instruction sheet Copy Copies To 1: CELE NELSON MD, BETHANY N MD Jul 04, 2017 9:09 am
[2017-07-04] MEDS ORDERED: INDOMETHACIN 25 MG (INDOCIN) CAP PO ONE (10:15)
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
--- NOTE | 2017-07-04 12:03 | Diagnostic Imaging Report ---
EXAMINATION: OB ultrasound. INDICATION: Vaginal bleeding. FINDINGS: heart rate is 142 beats per minutes. The placenta is seen in the lower uterine segment. It is not well seen at the level of the internal os due to shadowing. This was covering the internal os on previous exam of 05/28/2017. There is no retroplacental hemorrhage. The amniotic fluid index is normal at 15.2 CM. position is cephalic. IMPRESSION: Placenta previa. No retroplacental hemorrhage seen. Dictated by: Dictated on workstation # [id number]
[2017-07-05] MEDS ORDERED: PRENATAL VITAMIN 1 EA TAB PO SCH (07:00)
== END 2017-07-04 10:10 | disposition short-term general hospital (02) | DRG 782 ==
LOC: LDRP 23:58 → WSo 23:59 → LDRP 07-04 → WSo 07-04 → LDRP 07-04 07:34 → UNDOADMIN 07-04 07:35 → UNDODISIN 07-04 10:10 → EDSTATUS 07-05 15:41
PROVIDERS: ADMIT Family Medicine; ATTEND Family Medicine
DX: O44.12 Complete placenta previa with hemorrhage, second trimester (principal); O60.02 Preterm labor without delivery, second trimester; Z3A.26 26 weeks gestation of pregnancy
CPT/HCPCS: 36415; 76815; 80053; 83735; 85025; 86850; 86900; 86901

== ENCOUNTER 2017-08-11 23:18 | Inpatient (IN) | payer MEDICAID ==
[~2017-08-11] VITALS: Ht 162.6 cm; Wt 59.6 kg
[~2017-08-11 23:18] MED LIST changes: +HYDR-3454 PO; -HYDR-3812 PO; +PREN-142 PO
[2017-08-11 23:40] VITALS: BP 141/103
[2017-08-11] MEDS ORDERED: NIFEdipine 10 MG CAPS (WOMEN'S SERVICES ONLY!!!) PO ONE (23:48)
[2017-08-11] MEDS ORDERED: D5 LR IV SOLUTION 1,000 ML IV ONE (23:49)
[2017-08-12] VITALS (37 sets, daily range): BP systolic 117–176; BP diastolic 70–139
[2017-08-12] MEDS ORDERED: BETAMETHASONE ACE/NA PHOS 6 MG/ML (CELESTONE SOLUSPAN) ONE (00:26)
[2017-08-12] MEDS ORDERED: AMPICILLIN INJECTION 2,000 MG in NS (IVPB) 50 ML IV ONE (00:30)
[2017-08-12 00:35] LABS: BASOPHILS % (AUTO) 0 % (0-10); EOSINOPHILS # (AUTO) 0.1 10^3/uL (0.0-0.3); EOSINOPHILS % (AUTO) 1 % (0-10); HEMATOCRIT 24 % (35-52); HEMOGLOBIN 7.8 G/DL (11.5-16.0); LYMPHOCYTES # (AUTO) 1.7 X 10^3 (1.0-4.0); LYMPHOCYTES % (AUTO) 18 % (12-44); MEAN CORPUSCULAR HEMOGLOBIN 31 PG (25-34); MEAN CORPUSCULAR HGB CONC 33 G/DL (32-36); MEAN CORPUSCULAR VOLUME 96 FL (80-99); MEAN PLATELET VOLUME 10.9 FL (7.4-10.4); MONOCYTES # (AUTO) 0.5 X 10^3 (0.0-1.0); MONOCYTES % (AUTO) 5 % (0-12); NEUTROPHILS # (AUTO) 7.2 X 10^3 (1.8-7.8); NEUTROPHILS % (AUTO) 76 % (42-75); PLATELET COUNT 196 10^3/uL (130-400); RED BLOOD COUNT 2.49 10^6/uL (4.35-5.85); RED CELL DISTRIBUTION WIDTH 13.3 % (10.0-14.5); WHITE BLOOD COUNT 9.4 10^3/uL (4.3-11.0)
[2017-08-12] MEDS: D5 LR IV SOLUTION 1,000 ML IV SCH ×2 (00:37→10:08)
[2017-08-12 00:58] LABS: BILIRUBIN,URINE NEGATIVE (NEGATIVE); CLARITY,URINE CLEAR; COLOR,URINE YELLOW; GLUCOSE, URINE (UA) NEGATIVE (NEGATIVE); KETONES,URINE NEGATIVE (NEGATIVE); LEUKOCYTE ESTERASE ,URINE 3+ (NEGATIVE); NITRITE,URINE NEGATIVE (NEGATIVE); PH,URINE 6 (5-9); PROTEIN,URINE 2+ (NEGATIVE); UROBILINOGEN,URINE 1 MG/DL (NORMAL)
[2017-08-12 01:21] LABS: BACTERIA,URINE TRACE /HPF
[2017-08-12] MEDS: HYDROcodone/APAP 5 MG/325 MG (LORTAB) TAB PO PRN ×3 (03:30→20:29)
[2017-08-12] MEDS ORDERED: NIFEdipine 10 MG CAPS (WOMEN'S SERVICES ONLY!!!) PO ONE ×2 (03:35)
[2017-08-12 03:45] LABS: ALANINE AMINOTRANSFERASE 6 U/L (0-55); ALKALINE PHOSPHATASE 115 U/L (40-136); BILIRUBIN,TOTAL 0.4 MG/DL (0.1-1.0); BUN/CREATININE RATIO 26; CALCIUM 7.9 MG/DL (8.5-10.1); CARBON DIOXIDE 19 MMOL/L (21-32); CHLORIDE 108 MMOL/L (98-107); CREATININE SERUM 0.58 MG/DL (0.60-1.30); GFR ESTIMATED > 60; GLUCOSE 90 MG/DL (70-105); MAGNESIUM 1.7 MG/DL (1.8-2.4); POTASSIUM 3.4 MMOL/L (3.6-5.0); SODIUM 137 MMOL/L (135-145); TOTAL PROTEIN 5.9 GM/DL (6.4-8.2)
[2017-08-12] MEDS ORDERED: AMPICILLIN INJECTION 1,000 MG in NS (IVPB) 50 ML IV SCH (04:00)
[2017-08-12] MEDS ORDERED: NIFEdipine 10 MG CAPS (WOMEN'S SERVICES ONLY!!!) PO SCH (04:00)
[2017-08-12] MEDS ORDERED: morphine INJ 10 MG/ML 1ML (SYR OR VIAL) IVP ONE ×2 (04:00→11:30)
[2017-08-12 05:04] LABS: BASOPHILS % (AUTO) 0 % (0-10); EOSINOPHILS % (AUTO) 0 % (0-10); HEMATOCRIT 24 % (35-52); HEMOGLOBIN 7.6 G/DL (11.5-16.0); LYMPHOCYTES # (AUTO) 1.1 X 10^3 (1.0-4.0); LYMPHOCYTES % (AUTO) 10 % (12-44); MEAN CORPUSCULAR HEMOGLOBIN 31 PG (25-34); MEAN CORPUSCULAR HGB CONC 32 G/DL (32-36); MEAN CORPUSCULAR VOLUME 96 FL (80-99); MEAN PLATELET VOLUME 10.3 FL (7.4-10.4); MONOCYTES # (AUTO) 0.1 X 10^3 (0.0-1.0); MONOCYTES % (AUTO) 1 % (0-12); NEUTROPHILS # (AUTO) 9.6 X 10^3 (1.8-7.8); NEUTROPHILS % (AUTO) 89 % (42-75); PLATELET COUNT 202 10^3/uL (130-400); RED BLOOD COUNT 2.49 10^6/uL (4.35-5.85); RED CELL DISTRIBUTION WIDTH 13.3 % (10.0-14.5); WHITE BLOOD COUNT 10.8 10^3/uL (4.3-11.0)
[2017-08-12 05:27] LABS: AMYLASE 55 U/L (25-125); LIPASE 12 U/L (8-78)
--- NOTE | 2017-08-12 05:29 | History & Physical-OB ---
OB - Chief Complaint & HPI Date/Time Date of Admission: Date of Admission: Aug 12, 2017 at 00:17 Time Seen by Provider: 04:30 Chief Complaint/History OB-Reason for Admission/Chief: Medical Complication Hx : 5 Hx Para: 3 Expected Date of Delivery: Oct 04, 2017 Gestational Age in Weeks: 32 Other reason for admission: This is a at 32 1/7 weeks with known placenta previa that presented to women's services with complaint of abdominal pain. She states this was a new pain and hasn't experienced this during this . She was rj every 2 minutes on admission. She was not bleeding, so cervical exam was not done. She was admitted for treatment of labor. She had been transferred to [place] during this due to vaginal bleeding and received betamethasone Allergies and Home Medications Allergies Coded Allergies: cephalexin (Verified Allergy, Severe, RASH, Pt has received Ampicilin in the past, 08/12/17) codeine (Verified Allergy, Mild, HIVES, FLUSHING, BURNING FEELING, 08/13/17 ) Patient has received Morphine, Hydromorphone and Lortab on previous visits without issue tramadol (Verified Adverse Reaction, Unknown, VOMITING, 07/28/16) Home Medications Hydrocodone/Acetaminophen 1 Each Tablet, 1 EACH PO PRN, (Reported) Vit No.124/Iron/FA 1 Each Tablet, 1 EACH PO DAILY, (Reported) OB - History Obstetrical History Hx Termination: Yes Hx Multiple Gestation: No Hx Stillbirth: No Hx Complication: No Hx Induced Hypertens: No Hx Maternal Gestational Diabet: No Delivery History Hx Dystocia: No Hx Large For Gestational Age I: No Hx Small for Gestational Age I: No Hx Section: No Hx Vaginal Delivery Post C-Sec: No Hx Blood Disorders: No Adverse Rxn to Tranfusion: No Patient Past Medical History Rheumatoid Arthritis Social History/Family History HIV/AIDS: No Recent Infectious Disease Expo: No Sexually Transmitted Disease: No Alcohol Use: Denies Use Recreational Drug Use: No Immunizations Hepatitis A: No Hepatitis B: Yes Tetanus Booster (TDap): Less than 5yrs Date of Influenza Vaccine: Apr 19, 2017 OB - Admission Exam Physical Exam Vitals: Vital Signs 08/12/17 08/12/17 00:10 02:00 Temp 97.8 Pulse 82 Resp 18 B/P (MAP) 118/75 (89) Labs Laboratory Tests Test 08/12/17 00:05 08/12/17 00:40 08/12/17 05:00 Range/Units White Blood Count 9.4 10.8 4.3-11.0 10^3/uL Red Blood Count 2.49 L 2.49 L 4.35-5.85 10^6/uL Hemoglobin 7.8 L 7.6 L 11.5-16.0 G/DL Hematocrit 24 L 24 L 35-52 % Mean Corpuscular Volume 96 96 80-99 FL Mean Corpuscular Hemoglobin 31 31 25-34 PG Mean Corpuscular Hemoglobin Concent 33 32 32-36 G/DL Red Cell Distribution Width 13.3 13.3 10.0-14.5 % Platelet Count 196 202 130-400 10^3/uL Mean Platelet Volume 10.9 H 10.3 7.4-10.4 FL Neutrophils (%) (Auto) 76 H 89 H 42-75 % Lymphocytes (%) (Auto) 18 10 L 12-44 % Monocytes (%) (Auto) 5 1 0-12 % Eosinophils (%) (Auto) 1 0 0-10 % Basophils (%) (Auto) 0 0 0-10 % Neutrophils # (Auto) 7.2 9.6 H 1.8-7.8 X 10^3 Lymphocytes # (Auto) 1.7 1.1 1.0-4.0 X 10^3 Monocytes # (Auto) 0.5 0.1 0.0-1.0 X 10^3 Eosinophils # (Auto) 0.1 0.0 0.0-0.3 10^3/uL Basophils # (Auto) 0.0 0.0 0.0-0.1 10^3/uL Sodium Level 137 135-145 MMOL/L Potassium Level 3.4 L 3.6-5.0 MMOL/L Chloride Level 108 H 98-107 MMOL/L Carbon Dioxide Level 19 L 21-32 MMOL/L Anion Gap 10 5-14 MMOL/L Blood Urea Nitrogen 15 7-18 MG/DL Creatinine 0.58 L 0.60-1.30 MG/DL Estimat Glomerular Filtration Rate > 60 BUN/Creatinine Ratio 26 Glucose Level 90 70-105 MG/DL Calcium Level 7.9 L 8.5-10.1 MG/DL Magnesium Level 1.7 L 1.8-2.4 MG/DL Total Bilirubin 0.4 0.1-1.0 MG/DL Aspartate Amino Transf (AST/SGOT) 12 5-34 U/L Alanine Aminotransferase (ALT/SGPT) 6 0-55 U/L Alkaline Phosphatase 115 40-136 U/L Total Protein 5.9 L 6.4-8.2 GM/DL Albumin 3.0 L 3.2-4.5 GM/DL Urine Color YELLOW Urine Clarity CLEAR Urine pH 6 5-9 Urine Specific [place] 1.020 1.016-1.022 Urine Protein 2+ H NEGATIVE Urine Glucose (UA) NEGATIVE NEGATIVE Urine Ketones NEGATIVE NEGATIVE Urine Nitrite NEGATIVE NEGATIVE Urine Bilirubin NEGATIVE NEGATIVE Urine Urobilinogen 1 NORMAL MG/DL Urine Leukocyte Esterase 3+ H NEGATIVE Urine RBC (Auto) NEGATIVE NEGATIVE Urine RBC NONE /HPF Urine WBC 5-10 H /HPF Urine Squamous Epithelial Cells 2-5 /HPF Urine Crystals NONE /LPF Urine Bacteria TRACE /HPF Urine Casts NONE /LPF Urine Mucus LARGE H /LPF Urine Culture Indicated NO Amylase Level 55 25-125 U/L Lipase 12 8-78 U/L ISHA GARCIA DO Aug 12, 2017 05:29
[2017-08-12] MEDS ORDERED: TERBUTALINE INJ 1 MG/ML (BRETHINE) AMP ONE (05:47)
[2017-08-12] MEDS ORDERED: AMPICILLIN/SULBACTAM 3 GM VIAL (UNASYN) ONE (05:55)
[2017-08-12] MEDS ORDERED: NS (IVPB) 100 ML ONE (05:56)
[2017-08-12] MEDS ORDERED: AMPICILLIN/SULBACTAM INJECTION 3 GM in NS (IVPB) 100 ML IV ONE (06:00)
[2017-08-12] MEDS ORDERED: metroNIDAZOLE 500MG/100ML IVPB 100 ML IV SCH (06:00)
--- NOTE | 2017-08-12 06:14 | Diagnostic Imaging Report ---
CHEST 1 VIEW, AP/PA ONLY Indication: Chest pain shortness of breath Comparison: 03/31/2013 Findings: No focal airspace disease in the visualized lungs. Please note that the posterior lower lobes are poorly evaluated by portable radiography. No pleural effusion or pneumothorax. Normal cardiomediastinal silhouette. Impression: No acute cardiopulmonary process by portable radiography. Dictated by: Dictated on workstation # [id number]
[2017-08-12] MEDS ORDERED: BUTORPHANOL INJ 2 MG/ML (STADOL) VIAL ONE ×2 (06:16→06:18)
--- NOTE | 2017-08-12 06:18 | Diagnostic Imaging Report ---
INDICATION: Possible abruption. Bleeding. COMPARISON: 07/04/2017. TECHNIQUE: Transabdominal grayscale and color Doppler imaging of the gravid uterus was performed. FINDINGS: There is a single live intrauterine in the cephalic presentation. heart tone is identified at a rate of 138 beats per minute. Placenta is posteriorly located and there is no confirmation of placental abruption. A placental band is present at the superior aspect of the placenta. The JULIANA is normal at 11.8 cm. A small amount of simple appearing free fluid is present. There is dilation of the right proximal renal collecting system which could be due to gravid uterus. IMPRESSION: 1. No ultrasound findings to confirm placental abruption. Please note that ultrasound is insensitive in assessment for placental abruption. 2. Small volume of maternal abdominal ascites appears simple in nature but is of unknown etiology. Dictated by: Dictated on workstation # [id number]
[2017-08-12] MEDS ORDERED: ANTACID SUSP 30 ML UDC (MYLANTA) PO ONE (06:30)
[2017-08-12] MEDS ORDERED: FAMOTIDINE 20 MG (PEPCID) TABLET PO ONE (06:30)
[2017-08-12] MEDS ORDERED: BUTORPHANOL INJ 2 MG/ML (STADOL) VIAL IV ONE (06:30)
--- NOTE | 2017-08-12 06:32 | Consultation ---
History of Present Illness History of Present Illness Patient Consulted On(rohith/time) 08/12/17 06:27 Date Seen by Provider: Aug 12, 2017 Time Seen by Provider: 05:55 History of Present Illness Consult requested by Dr. Michael for abdominal pain on 32 weeks female. patient is a 32 year old female who is 32 weeks . she reports having diarrhea with a little blood last few days, but no blood in diarrhea yesterday. Presented to hospital with lower pelvic pressure and has history of labor. Patient pain began to increase and was having contractions which she was given procardia for. She then continued to have increasing pain and Her pain varied in location b/l lower quadrants and epigastric right upper quadrant , now having pain all over abdomen. Patient can not lay on her back due to pain. She gets minimal comfort sitting up. She reports shortness of breath. Nothing is making her pain better and laying back makes worse. Patient had an ultrasound that demonstrates some free fluid in the abdomen. A chest x ray was done and did not demonstrate any free air. She has a wbc of 10.8 and hgb of 7.6 Allergies and Home Medications Allergies Coded Allergies: cephalexin (Verified Allergy, Severe, RASH, Pt has received Ampicilin in the past, 08/12/17) codeine (Verified Allergy, Mild, HIVES, FLUSHING, BURNING FEELING, ) tramadol (Verified Adverse Reaction, Unknown, VOMITING, 07/28/16) Home Medications Hydrocodone/Acetaminophen 1 Each Tablet, 1 EACH PO PRN, (Reported) Vit No.124/Iron/FA 1 Each Tablet, 1 EACH PO DAILY, (Reported) Past Cdpewpe-Otczlu-Tqlsrv Hx Patient Social History Alcohol Use: Denies Use Recreational Drug Use: No Smoking Status: Never a Smoker Recent Foreign Travel: No Contact w/Someone Who Travel: No Recent Infectious Disease Expo: No Recent Hopitalizations: No Physical Abuse Screen: No Sexual Abuse: No Immunizations Up To Date Tetanus Booster (TDap): Less than 5yrs PED Vaccines UTD: Yes Date of Influenza Vaccine: Apr 19, 2017 Seasonal Allergies Seasonal Allergies: No Surgeries History of Surgeries: Yes (WISDOM TEETH REMOVED) Surgeries: Gallbladder Respiratory History of Respiratory Disorde: No Cardiovascular History of Cardiac Disorders: No Neurological History of Neurological Disord: No Neurological Disorders: Headaches /Migraines 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 System Hx 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 Disorders: No Sexually Transmitted Disease: No HIV/AIDS: No Female 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 Disorders: Ovarian Cyst Genitourinary History of Genitourinary Disor: No Gastrointestinal History of Gastrointestinal Di: No Musculoskeletal History of Musculoskeletal Dis: Yes Musculoskeletal Disorders: Arthritis, Chronic Back Pain Endocrine History of Endocrine Disorders: No HEENT History of HEENT Disorders: No Cancer History of Cancer: No Psychosocial History of Psychiatric Problem: Yes Behavioral Health Disorders: Anxiety Integumentary History of Skin or Integumenta: No Skin/Integumentary Disorders: Recent Skin Changes Blood Transfusions History of Blood Disorders: No Adverse Reaction to a Blood Tr: No Family Medical History Significant Family History: No Pertinent Family Hx Family Medial History: Arthritis 19 FATHER Hypertension 19 FATHER Review of Systems-General Constitutional: no symptoms reported EENTM: no symptoms reported Respiratory: see HPI Cardiovascular: no symptoms reported Gastrointestinal: see HPI Genitourinary: see HPI : Yes Musculoskeletal: see HPI Skin: no symptoms reported Psychiatric/Neurological: No Symptoms Reported Physical Exam-General Problems Physical Exam Vital Signs Vital Sign - Last 12Hours 08/11/17 08/12/17 23:40 00:10 Temp 97.8 Pulse 92 Resp 18 B/P (MAP) 141/103 (116) Capillary Refill : General Appearance: moderate distress HEENT: PERRL/EOMI Neck: supple Respiratory: no respiratory distress, no accessory muscle use Cardiovascular: tachycardia Gastrointestinal: tenderness (diffuse tenderness with palpation) Rectal: deferred Back: other (some tenderness more over lower posterior rib cage) Extremities: non-tender Neurologic/Psychiatric: alert, oriented x 3 Skin: other (feels feverish) Lymphatic: no adenopathy Data Review Labs Laboratory Tests 08/12/17 00:05: White Blood Count 9.4, Red Blood Count 2.49L, Hemoglobin 7.8L, Hematocrit 24L, Mean Corpuscular Volume 96, Mean Corpuscular Hemoglobin 31, Mean Corpuscular Hemoglobin Concent 33, Red Cell Distribution Width 13.3, Platelet Count 196, Mean Platelet Volume 10.9H, Neutrophils (%) (Auto) 76H, Lymphocytes (%) (Auto) 18, Monocytes (%) (Auto) 5, Eosinophils (%) (Auto) 1, Basophils (%) (Auto) 0, Neutrophils # (Auto) 7.2, Lymphocytes # (Auto) 1.7, Monocytes # (Auto) 0.5, Eosinophils # (Auto) 0.1, Basophils # (Auto) 0.0, Sodium Level 137, Potassium Level 3.4L, Chloride Level 108H, Carbon Dioxide Level 19L, Anion Gap 10, Blood Urea Nitrogen 15, Creatinine 0.58L, Estimat Glomerular Filtration Rate > 60, BUN /Creatinine Ratio 26, Glucose Level 90, Calcium Level 7.9L, Magnesium Level 1.7L , Total Bilirubin 0.4, Aspartate Amino Transf (AST/SGOT) 12, Alanine Aminotransferase (ALT/SGPT) 6, Alkaline Phosphatase 115, Total Protein 5.9L, Albumin 3.0L 08/12/17 00:40: Urine Color YELLOW, Urine Clarity CLEAR, Urine pH 6, Urine Specific [place] 1.020, Urine Protein 2+H, Urine Glucose (UA) NEGATIVE, Urine Ketones NEGATIVE, Urine Nitrite NEGATIVE, Urine Bilirubin NEGATIVE, Urine Urobilinogen 1, Urine Leukocyte Esterase 3+H, Urine RBC (Auto) NEGATIVE, Urine RBC NONE, Urine WBC 5- 10H, Urine Squamous Epithelial Cells 2-5, Urine Crystals NONE, Urine Bacteria TRACE, Urine Casts NONE, Urine Mucus LARGEH, Urine Culture Indicated NO 08/12/17 05:00: White Blood Count 10.8, Red Blood Count 2.49L, Hemoglobin 7.6L, Hematocrit 24L, Mean Corpuscular Volume 96, Mean Corpuscular Hemoglobin 31, Mean Corpuscular Hemoglobin Concent 32, Red Cell Distribution Width 13.3, Platelet Count 202, Mean Platelet Volume 10.3, Neutrophils (%) (Auto) 89H, Lymphocytes (%) (Auto) 10L, Monocytes (%) (Auto) 1, Eosinophils (%) (Auto) 0, Basophils (%) (Auto) 0, Neutrophils # (Auto) 9.6H, Lymphocytes # (Auto) 1.1, Monocytes # (Auto) 0.1, Eosinophils # (Auto) 0.0, Basophils # (Auto) 0.0, Amylase Level 55, Lipase 12 Assessment/Plan Assessment/Plan Assessment/Plan 32 year old female 32 weeks severe abdominal pain diffuse possible labor possible perforated appendicitis. Patient without elevation of wbc, but does have fluid in the abdomen. Her exam is suspicious for acute process such as perforated appendicitis. It was discussed that we do a diagnostic laparoscopy, or a ct scan, or transfer to where a NICU is available. Patient declined CT scan. We continued to discuss options. Concern for baby due to decrease in heart rate, was taken for emergent section and exploration. Clinical Quality Measures DVT/VTE Risk/Contraindication: Risk Factor Score Per Nursin RFS Level Per Nursing on Admit: 1=Low/No VTE PPX FLY STRINGER DO Aug 12, 2017 06:32
[2017-08-12] MEDS: AMPICILLIN/SULBACTAM INJECTION 3 GM in NS (IVPB) 100 ML IV SCH ×2 (06:45→07:49)
[2017-08-12] MEDS ORDERED: LORazepam INJ 2 MG/ML (ATIVAN) VIAL IVP NR (07:00)
[2017-08-12] MEDS ORDERED: fentaNYL INJECTION 100 MCG/2 ML AMP ONE ×4 (07:10→15:23)
[2017-08-12] MEDS ORDERED: OXYTOCIN/NORMAL SALINE 1,000 ML IV ONE (07:12)
[2017-08-12] MEDS ORDERED: proPOfol 200 MG/20 ML (DIPRIVAN) VIAL IV ONE ×2 (07:12→15:22)
[2017-08-12] MEDS ORDERED: SUCCINYLCHOLINE INJ 100 MG/5 ML SYR ONE ×2 (07:12→15:22)
[2017-08-12] MEDS ORDERED: NS IV 500 ML 500 ML ONE (07:23)
[2017-08-12] MEDS ORDERED: HYDROmorphone (DILAUDID) 2 MG/ML VIAL ONE (07:47)
[2017-08-12] MEDS ORDERED: KETOROLAC 30 MG/ML VIAL ONE (07:47)
[2017-08-12] MEDS ORDERED: morphine INJ 10 MG/ML 1ML (SYR OR VIAL) ONE ×2 (07:48→16:21)
[2017-08-12] MEDS ORDERED: DEXAMETHASONE 10 MG/ML (DECADRON) 1 ML VIAL ONE (07:59)
[2017-08-12] MEDS ORDERED: ONDANSETRON 4 MG/2 ML (SDV) Z0FRAN ONE ×2 (07:59→15:22)
[2017-08-12] MEDS: LACTATED RINGERS 1,000 ML IV PRN ×2 (08:01→17:04)
[2017-08-12] MEDS ORDERED: SEVOFLURANE (ULTANE) 15 ML INHAL SOLN ONE ×4 (08:16→17:31)
[2017-08-12] MEDS: morphine INJ 10 MG/ML 1ML (SYR OR VIAL) IVP PRN ×2 (08:28→08:33)
[2017-08-12] MEDS ORDERED: ONDANSETRON 4 MG/2 ML (SDV) Z0FRAN IVP PRN ×3 (08:30→17:30)
[2017-08-12] MEDS: HYDROmorphone (DILAUDID) 2 MG/ML VIAL IVP PRN ×3 (08:43→21:36)
[2017-08-12] MEDS ORDERED: OXYTOCIN/NORMAL SALINE 500 ML IV SCH (08:58)
[2017-08-12] MEDS ORDERED: D5 LR IV SOLUTION 1,000 ML IV SCH (08:58)
[2017-08-12] MEDS ORDERED: TETANUS,DIPTH,PERTUSS P/F (BOOSTRIX) 0.5 ML VIAL IM SCH (09:00)
[2017-08-12] MEDS ORDERED: HYDROmorphone (DILAUDID) 2 MG/ML VIAL IVP PRN ×2 (09:00→17:30)
[2017-08-12] MEDS ORDERED: BETAMETHASONE ACE/NA PHOS 6 MG/ML (CELESTONE SOLUSPAN) IM SCH (09:00)
[2017-08-12] MEDS ORDERED: MEASLES,MUMPS,RUBELLA 1 EA INJ SC SCH (09:00)
--- NOTE | 2017-08-12 09:04 | Cesarean Section Operative ---
Procedure Procedure Note Pre-operative Diagnosis: Mila Delacruz is a 32 /Para 5/3 , Gestational Age32 1/7 with severe abdominal pain, surgical abdomen, placenta previa, labor, bradycardia, Post-operative Diagnosis: placental abruption, hematoperitoneum, placental previa Procedure: Primary classical section Physician: ISHA GARCIA Electron Tube Assembler: Naga Colon DO Estimated blood loss: 650 mL Disposition: stable Findings: Viable male infant, Apgars, weight 1839 g, fragmented anterior placenta, 3vc, normal appearing uterus, tubes, and ovaries. Indications:Mila Delacruz is a 32 /Para 5/3 ,Gestational Age32 1/7 with severe abdominal pain, surgical abdomen, placenta previa, labor, bradycardia, Procedure Details: This patient was admitted this morning early with complaint of severe abdominal pain she was noted to be rj every 2-3 minutes. She also had a known placental previa. She is a history of being transferred to [place] at approximately 28 weeks of gestation with vaginal bleeding. She has been on bed rest since that time. She has not had any further bleeding. She has no bleeding today. So despite the severe abdominal pain and labor/ contractions she has not had bleeding. She was given something for pain and started on Procardia for tocolyse this. She was also given betamethasone. This had also been done at her transfer in June. She was started on ampicillin for group B strep prophylaxis due to unknown group B strep at 32 weeks. Contractions were able to be slowed. She did not have a cervical exam due to the known previa. She continued however to have continued pain. The well-being remained reassuring so I did not suspect abruption. Especially without vaginal bleeding. She did have no temperature when she arrived. Temp was 97.8. However after an hour or so she had a temp of 100.2. It was suspicious that she may have appendicitis. Her white count went from 9- 10.2. So she did not have a leukocytosis. The diagnosis was very confusing but she definitely had a surgical abdomen. She was not tender in the uterus but tender in the abdomen surrounding the uterus. She had rebound and guarding. Ultrasound was done which revealed no obvious abruption. They also told me that she had an posterior placenta. But there was fluid in a moderate amount outside the uterus. This appeared simple and noncomplex so I did not suspect hemorrhage nor pus, but I asked Dr. Colon the on-call surgeon to come evaluate. We were discussing the possibility of doing an exploratory laparoscopy to determine the cause of the fluid but the patient wished to be transferred so that she could be where her baby was. by this time, she would not lie down due to worsening upper abdominal pain and pelvic pain. We were working on her transfer when we had sudden bradycardia. An immediate section was done. The patient was seen in pre-op and the procedure was discussed with the patient in full, including the risks, benefits, and alternatives. All questions were answered. The patient was taken to the operating room and a time out was performed, verifying patient and procedure. After general anesthesia was placed by our anesthesia colleagues, the patient was placed in the dorsal supine with leftward tilt for uterine displacement.~ Her abdomen was then prepped and draped in the typical sterile fashion. A midline skin incision was made using a scalpel and carried down through the underlying fascia. The fascia was incised in the midline and tented up using Bennie clamps. This was extending superiorly and inferiorly. The rectus muscles were in the midline. The peritoneum was identified and entered bluntly in the midline. This was then stretched laterally using manual strength. After entering the abdominal cavity there was a large amount of bloody fluid noted. There was no evidence of infection. The uterus exhibited couvelaire sign. This indicates retroplacental bleeding, likely due to placental abruption. A large Vishnu retractor was placed and the lower uterine segment was visualized. A scalpel was utilized to make a classical midline uterine incision. The placenta was anterior and low lying. I had to separate the uterus to get the the fluid. Amniotomy was performed with an Allis clamp with return of bloody fluid. The infant's head was grasped and brought to the level of the incision. Fundal pressure was applied and infant was delivered without difficulty. Mouth and nares were suctioned with bulb suction. After the umbilical cord was clamped and cut, the was handed off to the pediatric staff. cord gas was sent (pH 7.24). A sample of cord blood was then obtained. The placenta was delivered in pieces via uterine massage. There was a very large clot noted. he uterus was exteriorized and cleared of all clots and debris. The uterine incision was closed using 0 Vicryl in a running locked fashion. A second imbricated layer was placed using 0 Vicryl in a running fashion as well. A third layer was used due to the clasical incision. The uterus was flexed forward and the posterior rectouterine space was inspected and cleared of all clots and debris. Again the hysterotomy site was examined and hemostasis was observed. The bilateral tubes and ovaries appeared normal. The uterus was placed back into the abdominal cavity and abdominal gutters were cleared of all clots and debris. A final check of the uterine incision showed it to be hemostatic. The peritoneum was closed using 3-0 Vicryl in a running fashion. The fascia was closed with 0 Vicryl in a running fashion. The subcutaneous space was hemostatic, and irrigated. Dr. Colon now ran the bowel and this is dictated under separate cover. The pelvis was copiously irrigated with over 6 liters of fluid. The subcutaneous space was closed with 3-0 Vicryl in several single interrupted stitches. The skin was then closed using 4-0 Monocryl in a running subcuticular fashion. The skin edges were reapproximated together and were hemostatic. A pressure dressing was applied. All sponge, lap and needle counts were correct at the end of the procedure per nursing. Vitals - Labs Vital Signs - I&O Vital Signs Date Time Temp Pulse Resp B/P (MAP) Pulse Ox O2 Delivery O2 Flow Rate FiO2 08/12/17 07:10 98.9 127 22 140/86 (104) 99 08/12/17 05:10 100.2 120 22 99 08/12/17 05:00 97.8 117 22 126/79 (95) 08/12/17 03:00 97.8 69 18 136/90 (105) 08/12/17 02:00 82 18 118/75 (89) 08/12/17 01:45 77 18 118/71 (87) 08/12/17 01:30 86 18 128/104 (112) 08/12/17 01:15 77 18 127/84 (98) 08/12/17 01:00 77 18 117/82 (94) 08/12/17 00:45 83 18 144/70 (94) 08/12/17 00:30 68 18 131/86 (101) 08/12/17 00:10 97.8 88 18 137/98 (111) 08/11/17 23:40 92 141/103 (116) I & O 08/12/17 07:00 Intake Total 100 ml Balance 100 ml Labs Laboratory Tests 08/12/17 00:05: White Blood Count 9.4, Red Blood Count 2.49L, Hemoglobin 7.8L, Hematocrit 24L, Mean Corpuscular Volume 96, Mean Corpuscular Hemoglobin 31, Mean Corpuscular Hemoglobin Concent 33, Red Cell Distribution Width 13.3, Platelet Count 196, Mean Platelet Volume 10.9H, Neutrophils (%) (Auto) 76H, Lymphocytes (%) (Auto) 18, Monocytes (%) (Auto) 5, Eosinophils (%) (Auto) 1, Basophils (%) (Auto) 0, Neutrophils # (Auto) 7.2, Lymphocytes # (Auto) 1.7, Monocytes # (Auto) 0.5, Eosinophils # (Auto) 0.1, Basophils # (Auto) 0.0, Sodium Level 137, Potassium Level 3.4L, Chloride Level 108H, Carbon Dioxide Level 19L, Anion Gap 10, Blood Urea Nitrogen 15, Creatinine 0.58L, Estimat Glomerular Filtration Rate > 60, BUN /Creatinine Ratio 26, Glucose Level 90, Calcium Level 7.9L, Magnesium Level 1.7L , Total Bilirubin 0.4, Aspartate Amino Transf (AST/SGOT) 12, Alanine Aminotransferase (ALT/SGPT) 6, Alkaline Phosphatase 115, Total Protein 5.9L, Albumin 3.0L 08/12/17 00:40: Urine Color YELLOW, Urine Clarity CLEAR, Urine pH 6, Urine Specific Haywood 1.020, Urine Protein 2+H, Urine Glucose (UA) NEGATIVE, Urine Ketones NEGATIVE, Urine Nitrite NEGATIVE, Urine Bilirubin NEGATIVE, Urine Urobilinogen 1, Urine Leukocyte Esterase 3+H, Urine RBC (Auto) NEGATIVE, Urine RBC NONE, Urine WBC 5- 10H, Urine Squamous Epithelial Cells 2-5, Urine Crystals NONE, Urine Bacteria TRACE, Urine Casts NONE, Urine Mucus LARGEH, Urine Culture Indicated NO 08/12/17 05:00: White Blood Count 10.8, Red Blood Count 2.49L, Hemoglobin 7.6L, Hematocrit 24L, Mean Corpuscular Volume 96, Mean Corpuscular Hemoglobin 31, Mean Corpuscular Hemoglobin Concent 32, Red Cell Distribution Width 13.3, Platelet Count 202, Mean Platelet Volume 10.3, Neutrophils (%) (Auto) 89H, Lymphocytes (%) (Auto) 10L, Monocytes (%) (Auto) 1, Eosinophils (%) (Auto) 0, Basophils (%) (Auto) 0, Neutrophils # (Auto) 9.6H, Lymphocytes # (Auto) 1.1, Monocytes # (Auto) 0.1, Eosinophils # (Auto) 0.0, Basophils # (Auto) 0.0, Amylase Level 55, Lipase 12 ISHA GARCIA DO Aug 12, 2017 09:04
[2017-08-12] MEDS: KETOROLAC 30 MG/ML VIAL IVP SCH ×2 (09:07→18:35)
[2017-08-12] MEDS: DOCUSATE SODIUM 100 MG (COLACE) CAP PO SCH (11:02)
[2017-08-12 12:06] LABS: BASOPHILS % (AUTO) 0 % (0-10); EOSINOPHILS % (AUTO) 0 % (0-10); HEMATOCRIT 23 % (35-52); HEMOGLOBIN 7.6 G/DL (11.5-16.0); LYMPHOCYTES # (AUTO) 0.7 X 10^3 (1.0-4.0); LYMPHOCYTES % (AUTO) 5 % (12-44); MEAN CORPUSCULAR HEMOGLOBIN 30 PG (25-34); MEAN CORPUSCULAR HGB CONC 33 G/DL (32-36); MEAN CORPUSCULAR VOLUME 91 FL (80-99); MEAN PLATELET VOLUME 10.4 FL (7.4-10.4); MONOCYTES # (AUTO) 0.2 X 10^3 (0.0-1.0); MONOCYTES % (AUTO) 1 % (0-12); NEUTROPHILS # (AUTO) 11.8 X 10^3 (1.8-7.8); NEUTROPHILS % (AUTO) 94 % (42-75); PLATELET COUNT 156 10^3/uL (130-400); RED BLOOD COUNT 2.54 10^6/uL (4.35-5.85); WHITE BLOOD COUNT 12.7 10^3/uL (4.3-11.0)
[2017-08-12] MEDS ORDERED: MISOPROSTOL 200 MCG (CYTOTEC) TABLET PO NR (14:00)
[2017-08-12] MEDS ORDERED: oxyCODONE/APAP 7.5-325 MG (PERCOCET 7.5) TABLET PO PRN (14:00)
[2017-08-12] MEDS ORDERED: CARBOPROST (HEMABATE) 250 MCG/ML AMP IM NR (14:30)
[2017-08-12 15:15] LABS: ABG BASE EXCESS -4.3 MMOL/L (-2.5-2.5); ABG OXYGEN SATURATION 101 % (94-100); ABG PCO2 27 MMHG (35-45); ABG PH 7.46 (7.37-7.43); ABG PO2 235 MMHG (79-93); ABG TCO2 19.6 MMOL/L (21.0-31.0)
[2017-08-12] MEDS ORDERED: TRANEXAMIC ACID INJECTION 1,000 MG in NS (IVPB) 50 ML IV ONE (15:15)
[2017-08-12 15:19] LABS: INSPIRED O2 HIGH FLOW; PATIENT TEMP 99.3; VENTILATOR NO
[2017-08-12] MEDS ORDERED: LIDOCAINE PF 2% 5 ML (XYLOCAINE) VIAL ONE (15:22)
[2017-08-12] MEDS ORDERED: MIDAZOLAM 2 MG/2 ML (VERSED) VIAL ONE (15:23)
[2017-08-12] MEDS ORDERED: CLINDAMYCIN 600 MG/50 ML IVPB 50 ML IV NR (15:30)
[2017-08-12 15:48] LABS: INR 1.3 (0.8-1.4); PROTHROMBIN TIME PATIENT 15.8 SEC (12.2-14.7)
[2017-08-12 15:54] LABS: BUN/CREATININE RATIO 15; CALCIUM 7.5 MG/DL (8.5-10.1); CARBON DIOXIDE 19 MMOL/L (21-32); CHLORIDE 111 MMOL/L (98-107); CREATININE SERUM 0.48 MG/DL (0.60-1.30); GFR ESTIMATED > 60; GLUCOSE 130 MG/DL (70-105); MAGNESIUM 1.5 MG/DL (1.8-2.4); POTASSIUM 3.6 MMOL/L (3.6-5.0); SODIUM 138 MMOL/L (135-145)
[2017-08-12 16:03] LABS: CARDIAC PROFILE 2 < 0.30 NG/ML (<0.30)
[2017-08-12] MEDS ORDERED: NS IV 1000 ML 1,000 ML IV PRN (16:05)
[2017-08-12 16:10] LABS: FIBRIN DEGRADATION PRODUCTS 9.54 UG/ML (0.00-0.49)
[2017-08-12] MEDS ORDERED: NEOSTIGMINE (BLOXIVERZ ) 1 MG/1ML 10 ML VIAL ONE (17:00)
[2017-08-12] MEDS ORDERED: GLYCOPYRROLATE 0.2 MG/ML (ROBINUL) 2 ML VIAL ONE (17:00)
--- NOTE | 2017-08-12 17:14 | Operative Report ---
Operative Report Date of Procedure/Surgery Aug 12, 2017 Surgeon (s) ISHA GARCIA DO Geology Professor (s): Luis Browning DO Post-Operative Diagnosis Post hemorrhage Procedure Performed TSC, bilateral salpingectomy Description of Procedure Anesthesia Type: General Estimated blood loss (mL): 350 Specimen(s) collected/removed uterus, bilateral tubes Description of the Procedure After informed consent was obtained, the patient was taken to the operating room where general anesthesia was found to be adequate. She was placed in a supine position with a transurethral Aguilar in place and compression stockings in place. The abdomen and vagina were thoroughly prepped and draped in the usual sterile fashion. The uterus was massaged and there was 300-500 ml clot expressed. Amidline skin incision was made with the scalpel through the previous cesaean section scar and carried down sharply to the underlying layer of fascia and peritoneum. The peritoneum was bluntly entered and the incision extended superiorly and inferiorly with good visualization of underlying organs. Next, exploration of the abdominal and pelvic organs revealed the above noted findings. The uterus was enlarged but there was no obvious bleeding. The pelvis was clear of fluid or bleeding. The uterus was boggy. An extra large gina retractor was placed into the incision, and the bowel was packed away with moist laparotomy sponges. Next, a sharp and blunt dissection was used to free the extensive adhesions, and enterolysis was performed with very careful attention not to injure or denude the bowel. Next, the left round ligament and cornual region was divided, transected, and suture-ligated with 0 Polysorb. The anterior and posterior leafs of the broad ligament were dissected and opened anteriorly to the level of the bladder. The uterine arteries were skeletonized on the left, and these were suture-clamped and transected with 0 Polysorb with good hemostasis noted. Next, the bladder flap was developed anteriorly, and the bladder peritoneum was sharply and bluntly dissected off of the lower uterus. On the right, a similar procedure was performed. The right round ligament was suture-ligated with 0 Polysorb. It was transected and divided with electrocautery. The anterior and posterior leafs of the broad ligament were dissected and developed anteriorly and posteriorly, and this area was relatively avascular. The left infundibulopelvic ligament was identified. It was cross-clamped and transected, suture-ligated with 0 Polysorb with good hemostasis noted. Next, the uterine arteries were skeletonized on the right. They were transected and suture-ligated with 0 Polysorb. The uterosacral ligaments were taken bilaterally and transected and suture-ligated with 0 Polysorb. The cardinal ligaments were taken near their insertion into the cervical and uterine tissue. Pedicles were sharply developed and suture-ligated with 0 Polysorb. Next, the electrocautery was used to dissect the cervix anteriorly from the underlying vagina. Once entry into the vagina was made, the cervix and uterus were amputated with Oscar scissors. The vaginal cuff angles were suture-ligated with 0 Polysorb and transfixed to the ipsilateral, cardinal, and uterosacral ligaments for vaginal support. The remainder of the vagina was closed with [id number] sutures in an interrupted fashion with good hemostasis noted. Next, the right ovarian tissue was densely adherent to the colon. It was sharply and bluntly dissected, and most of the right ovary and endometrioma was removed and dissected off completely; however, there is a quite possibility that small remnants of ovarian tissue were left behind. The right ureter was seen and palpated. It did not appear to be dilated and had good peristalsis noted. Next, the retractors were removed. The laparotomy sponges were removed from the abdomen. The rectus fascia was closed with 0 Polysorb in a continuous running fashion with 2 sutures meeting in the midline. The subcutaneous tissue was closed with 0 plain gut in an interrupted fashion. The skin was closed with 4-0 Polysorb in a subcuticular fashion. A thin layer of Dermabond was placed. The patient tolerated the procedure well. Sponge, lap, and needle counts were correct x 2. Cefoxitin 2 g was given preoperatively. Findings of the Procedure Following the section, the patient was taken to recovery. She had EBL during the section of 650 ml. After surgery received 60 units of Pitocin, 800 mcg rectal Cytotec and then 250 mcg of Hemabate due to continued bleeding. EBL after the CS was 150 ml. At this point tranexamic acid was started (1 gram) and bleeding continued despite uterus contracted. The decision was made to proceed with dilation and curettage and possible hysterectomy. However, after the dose of Hemabate she had sudden increase in BP (previous was 140/90) to 160/115 and the pulse increase to 140. Stated "I don't feel well". Heart was irregular with probable PVCs. EKG was obtained and heart rate showed bigeminy. Cardiology consult was obtained. He thought this was due to the anemia and she would be stable for surgery but recommended esmolol drip or labetalol during surgery as needed. During the hysterectomy, BP was 100/80 and pulse 80-90 so no need for betablocker. Allergies and Home Medications Allergies Coded Allergies: cephalexin (Verified Allergy, Severe, RASH, Pt has received Ampicilin in the past, 08/12/17) codeine (Verified Allergy, Mild, HIVES, FLUSHING, BURNING FEELING, 08/13/17 ) Patient has received Morphine, Hydromorphone and Lortab on previous visits without issue tramadol (Verified Adverse Reaction, Unknown, VOMITING, 07/28/16) Home Medications Hydrocodone/Acetaminophen 1 Each Tablet, 1 EACH PO PRN, (Reported) Vit No.124/Iron/FA 1 Each Tablet, 1 EACH PO DAILY, (Reported) ISHA GARCIA DO Aug 12, 2017 17:14
[2017-08-12] MEDS ORDERED: morphine INJ 10 MG/ML 1ML (SYR OR VIAL) IVP PRN (17:30)
[2017-08-12] MEDS ORDERED: MEPERIDINE (DEMEROL) INJ 50 MG/ML IVP PRN (17:30)
[2017-08-12] MEDS ORDERED: CALCIUM GLUC. 10% 4.65 MEQ/10 ML VIAL IV PRN (18:15)
[2017-08-12] MEDS ORDERED: MAGNESIUM 4 GM/100 ML IVPB 100 ML IV SCH (18:15)
[2017-08-12] MEDS ORDERED: LABETALOL HCL 20 MG/4 ML VIAL IV ONE (18:15)
[2017-08-12] MEDS: MAGNESIUM SULFATE DRIP 500 ML IV SCH (19:30)
[2017-08-12 19:39] LABS: HEMOGLOBIN 8.9 G/DL (11.5-16.0)
[2017-08-12] MEDS ORDERED: HYDROcodone/APAP 5 MG/325 MG (LORTAB) TAB ONE (20:17)
[2017-08-13] VITALS (22 sets, daily range): BP systolic 117–157; BP diastolic 76–110
[2017-08-13] MEDS: HYDROcodone/APAP 5 MG/325 MG (LORTAB) TAB PO PRN ×2 (00:36→06:20)
[2017-08-13] MEDS: KETOROLAC 30 MG/ML VIAL IVP SCH ×3 (00:37→15:09)
[2017-08-13] MEDS: DOCUSATE SODIUM 100 MG (COLACE) CAP PO SCH ×3 (00:48→20:19)
[2017-08-13] MEDS: CATHETER FLUSH 10 ML SYR IV SCH ×4 (01:21→15:09)
[2017-08-13] MEDS: HYDROmorphone (DILAUDID) 2 MG/ML VIAL IVP PRN ×3 (03:04→07:59)
[2017-08-13] MEDS: MAGNESIUM SULFATE DRIP 500 ML IV SCH (05:06)
[2017-08-13] MEDS: D5 LR IV SOLUTION 1,000 ML IV SCH ×6 (05:12→12:55)
[2017-08-13] MEDS ORDERED: KETOROLAC 30 MG/ML VIAL ONE (06:17)
[2017-08-13 06:53] LABS: BASOPHILS % (AUTO) 0 % (0-10); EOSINOPHILS % (AUTO) 0 % (0-10); HEMATOCRIT 22 % (35-52); HEMOGLOBIN 7.7 G/DL (11.5-16.0); LYMPHOCYTES # (AUTO) 2.4 X 10^3 (1.0-4.0); LYMPHOCYTES % (AUTO) 20 % (12-44); MEAN CORPUSCULAR HEMOGLOBIN 31 PG (25-34); MEAN CORPUSCULAR HGB CONC 35 G/DL (32-36); MEAN CORPUSCULAR VOLUME 87 FL (80-99); MEAN PLATELET VOLUME 10.6 FL (7.4-10.4); MONOCYTES # (AUTO) 0.9 X 10^3 (0.0-1.0); MONOCYTES % (AUTO) 8 % (0-12); NEUTROPHILS # (AUTO) 8.4 X 10^3 (1.8-7.8); NEUTROPHILS % (AUTO) 72 % (42-75); PLATELET COUNT 177 10^3/uL (130-400); RED BLOOD COUNT 2.51 10^6/uL (4.35-5.85); RED CELL DISTRIBUTION WIDTH 15.6 % (10.0-14.5); WHITE BLOOD COUNT 11.7 10^3/uL (4.3-11.0)
[2017-08-13] MEDS: oxyCODONE/APAP 10/325MG (PERCOCET 10) TABLET PO PRN ×3 (10:30→20:19)
[2017-08-13] MEDS: FERROUS SULF 325 MG (IRON) TAB PO SCH ×2 (11:32→18:07)
[2017-08-13] MEDS ORDERED: ANTACID SUSP 30 ML UDC (MYLANTA) PO PRN (12:45)
--- NOTE | 2017-08-13 12:59 | Anesthesia-General Post-Op ---
General Patient Condition Mental Status/LOC: Same as Preop Cardiovascular: Satisfactory Nausea/Vomiting: Absent Respiratory: Satisfactory Pain: Controlled Complications: Absent Post Op Complications Complications None Follow Up Care/Instructions Patient Instructions None needed. Anesthesia/Patient Condition Patient Condition Patient is doing well, no complaints, stable vital signs, no apparent adverse anesthesia problems. No complications reported per nursing. D/C home per [facility] Criteria: Yes IRMA IBARRA CRNA Aug 13, 2017 12:59
[2017-08-13] MEDS: METOCLOPRAMIDE INJ 10 MG/2 ML (REGLAN) IVP SCH ×2 (13:11→18:07)
[2017-08-13] MEDS: SIMETHICONE 80 MG (MYLICON) CHEW PO PRN ×2 (13:11→18:06)
[2017-08-13] MEDS: IBUPROFEN 600 MG (MOTRIN) TAB PO SCH ×3 (13:11→18:41)
--- NOTE | 2017-08-13 13:12 | Consultation-Cardiology ---
HPI-Cardiology Cardiology Consultation Date of Consultation 08/13/17 Date of Admission Time Seen by Provider: 08:00 Indication: chest pain and tachycardia HPI 32 years old lady with no previous cardiac history, admitted for , postdelivery she continue to have bleed, she was noted to have tachycardia, was having severe abdominal pain, frequent PVCs, I was called for emergency evaluation. Upper my evaluation patient was in severe pain mainly abdominal pain, was tachycardic with a heart rate ranging between 90 and 120. Frequent PVCs were noted on telemetry. She was going to the operating room. This morning patient was sitting in bed eating breakfast, feeling better but having pain at the surgical site. Denied any chest pain today. No shortness of breath or palpitation, overnight she continued to have episodes of sinus tachycardia with frequent PVCs with exertion up and getting out of bed. While laying down in bed comfortably her heart rate is controlled and no PVCs were noted. Home Medications & Allergies Allergies: Coded Allergies: cephalexin (Verified Allergy, Severe, RASH, Pt has received Ampicilin in the past, 08/12/17) codeine (Verified Allergy, Mild, HIVES, FLUSHING, BURNING FEELING, 08/13/17 ) Patient has received Morphine, Hydromorphone and Lortab on previous visits without issue tramadol (Verified Adverse Reaction, Unknown, VOMITING, 07/28/16) Home Medication List Reviewed: Yes [id number] Hx Patient Social History Alcohol Use: Denies Use Recreational Drug Use: No Smoking Status: Never a Smoker Recent Foreign Travel: No Recent Infectious Disease Expo: No Recent Hopitalizations: No Physical Abuse Screen: No Sexual Abuse: No Immunizations Up To Date Tetanus Booster (TDap): Less than 5yrs Date of Influenza Vaccine: Apr 19, 2017 Past Medical History Past medical history as discussed below Family Medical History Significant Family History: No Pertinent Family Hx Family History: Arthritis 19 FATHER Hypertension 19 FATHER Constitutional: malaise, weakness EENTM: no symptoms reported Respiratory: no symptoms reported Cardiovascular: No see HPI, chest pain, No edema, No Hx of Intervention, No palpitations, No syncope, No vascular heart diseas, No other Gastrointestinal: abdominal pain Genitourinary: see HPI Musculoskeletal: no symptoms reported Skin: no symptoms reported Psychiatric/Neurological: No Symptoms Reported Reviewed Test Results Reviewed Test Results Lab Laboratory Tests Test 08/12/17 15:04 08/12/17 15:20 08/12/17 19:25 08/13/17 06:09 Range/Units Blood Gas Puncture Site LEFT BRACHIAL Blood Gas Patient Temperature 99.3 Arterial Blood pH 7.46 H 7.37-7.43 Arterial Blood Partial Pressure CO2 27 L 35-45 MMHG Arterial Blood Partial Pressure O2 235 H 79-93 MMHG Arterial Blood HCO3 19 L 23-27 MMOL/L Arterial Blood Total CO2 19.6 L 21.0-31.0 MMOL/L Arterial Blood Oxygen Saturation 101 H 94-100 % Arterial Blood Base Excess -4.3 L -2.5-2.5 MMOL/L Zach Test NA Blood Gas Ventilator Setting NO Blood Gas Inspired Oxygen HIGH FLOW Prothrombin Time 15.8 H 12.2-14.7 SEC INR Comment 1.3 0.8-1.4 Activated Partial Thromboplast Time 28 24-35 SEC Fibrinogen 338 221-496 MG/DL D-Dimer 9.54 H 0.00-0.49 UG/ML Sodium Level 138 135-145 MMOL/L Potassium Level 3.6 3.6-5.0 MMOL/L Chloride Level 111 H 98-107 MMOL/L Carbon Dioxide Level 19 L 21-32 MMOL/L Anion Gap 8 5-14 MMOL/L Blood Urea Nitrogen 7 7-18 MG/DL Creatinine 0.48 L 0.60-1.30 MG/DL Estimat Glomerular Filtration Rate > 60 BUN/Creatinine Ratio 15 Glucose Level 130 H 70-105 MG/DL Calcium Level 7.5 L 8.5-10.1 MG/DL Magnesium Level 1.5 L 1.8-2.4 MG/DL Troponin I < 0.30 <0.30 NG/ML B-Type Natriuretic Peptide 62.4 <100.0 PG/ML Hemoglobin 8.9 L 7.7 L 11.5-16.0 G/DL Hematocrit 26 L 22 L 35-52 % White Blood Count 11.7 H 4.3-11.0 10^3/uL Red Blood Count 2.51 L 4.35-5.85 10^6/uL Mean Corpuscular Volume 87 80-99 FL Mean Corpuscular Hemoglobin 31 25-34 PG Mean Corpuscular Hemoglobin Concent 35 32-36 G/DL Red Cell Distribution Width 15.6 H 10.0-14.5 % Platelet Count 177 130-400 10^3/uL Mean Platelet Volume 10.6 H 7.4-10.4 FL Neutrophils (%) (Auto) 72 42-75 % Lymphocytes (%) (Auto) 20 12-44 % Monocytes (%) (Auto) 8 0-12 % Eosinophils (%) (Auto) 0 0-10 % Basophils (%) (Auto) 0 0-10 % Neutrophils # (Auto) 8.4 H 1.8-7.8 X 10^3 Lymphocytes # (Auto) 2.4 1.0-4.0 X 10^3 Monocytes # (Auto) 0.9 0.0-1.0 X 10^3 Eosinophils # (Auto) 0.0 0.0-0.3 10^3/uL Basophils # (Auto) 0.0 0.0-0.1 10^3/uL Physical Exam Vital Signs Vital Sign - Last 12Hours 08/11/17 08/12/17 08/12/17 08/12/17 23:40 00:10 05:10 11:34 Temp 97.8 Pulse 92 Resp 18 B/P (MAP) 141/103 (116) Pulse Ox 99 O2 Delivery Non Rebreather O2 Flow Rate 10.00 Capillary Refill : General Appearance: No Apparent Distress, WD/WN, Anxious HEENT: TMs Normal, Normal ENT Inspection, Pharynx Normal Neck: Non Tender, Supple Respiratory: Chest Non Tender, Lungs Clear, Normal Breath Sounds Cardiovascular: Regular Rate, Rhythm, No Edema, No Gallop, No JVD, No Murmur Gastrointestinal: Normal Bowel Sounds, Tenderness Back: Normal Inspection Extremity: Normal Capillary Refill, Normal Inspection Neurologic/Psychiatric: Alert, Oriented x3, No Motor/Sensory Deficits Skin: Normal Color A/P-Cardiology Admission Diagnosis Anemia Uterine bleeding Sinus tachycardia PVCs Chest pain Assessment/Plan Status post bleed post resulted in hysterectomy, recovering slowly. Severe anemia requiring multiple blood transfusion. managed by Dr. Michael Chest pain, while tachycardic and in severe distress with abdominal pain. Currently chest pain-free. No acute EKG changes suggestive of ischemia. Continue to monitor Sinus tachycardia, probably secondary to pain and anemia. Heart rate is better at this time, continue to have sinus tachycardia with any exertion probably due to the severe anemia. Continue to monitor at this time on telemetry Frequent PVCs noted while she was in severe distress. Currently PVCs are better. Continue to monitor on telemetry and monitor electrolytes. Clinical Quality Measures DVT/VTE Risk/Contraindication: Risk Factor Score Per Nursin RFS Level Per Nursing on Admit: 1=Low/No VTE PPX MAME SANCHEZ MD Aug 13, 2017 13:12
--- NOTE | 2017-08-13 16:52 | Postpartum Progress Note ---
Post Op Late entry. Seen at 0815 this am. Post-operative Day #1 s/p section (placental abruption, placenta previa , hematoperitoneum), #1 s/p TSH, bilataral salpingectomy (post hemorrhage , with exhausted medical treatment), preeclampsia. Mg started post operatively. Received 2 units blood during CS and 2 units during hyst. Tolerating clear liquids. Pain not well controlled. When I examined her this am, she was eating pancakes and had immediate abdominal pain, Thus suggesting indigestion/gas pains. Started on Mylanta/reglan. BP under control. UO > 30 ml/hr but not diuresing yet. Subjective: Patient is without complaints. Ambulating, voiding after stevenson removed. Tolerating a regular diet without nausea or vomiting. Normal lochia. Pain is well controlled with oral pain medications. Passing flatus. pumping. 32 week baby at [facility]. Objective: Laboratory Tests Test 08/12/17 19:25 08/13/17 06:09 Range/Units Hemoglobin 8.9 L 7.7 L 11.5-16.0 G/DL Hematocrit 26 L 22 L 35-52 % White Blood Count 11.7 H 4.3-11.0 10^3/uL Red Blood Count 2.51 L 4.35-5.85 10^6/uL Mean Corpuscular Volume 87 80-99 FL Mean Corpuscular Hemoglobin 31 25-34 PG Mean Corpuscular Hemoglobin Concent 35 32-36 G/DL Red Cell Distribution Width 15.6 H 10.0-14.5 % Platelet Count 177 130-400 10^3/uL Mean Platelet Volume 10.6 H 7.4-10.4 FL Neutrophils (%) (Auto) 72 42-75 % Lymphocytes (%) (Auto) 20 12-44 % Monocytes (%) (Auto) 8 0-12 % Eosinophils (%) (Auto) 0 0-10 % Basophils (%) (Auto) 0 0-10 % Neutrophils # (Auto) 8.4 H 1.8-7.8 X 10^3 Lymphocytes # (Auto) 2.4 1.0-4.0 X 10^3 Monocytes # (Auto) 0.9 0.0-1.0 X 10^3 Eosinophils # (Auto) 0.0 0.0-0.3 10^3/uL Basophils # (Auto) 0.0 0.0-0.1 10^3/uL Vital Sign - Last 12Hours 08/13/17 08/13/17 08/13/17 08/13/17 05:00 05:00 06:00 06:00 Temp 98.9 99.4 Pulse 97 97 105 99 Resp 18 18 18 18 B/P (MAP) 127/94 (105) 120/77 (91) Pulse Ox 98 99 O2 Delivery Room Air Room Air 08/13/17 08/13/17 08/13/17 08/13/17 07:00 07:00 07:00 08:00 Temp 98.7 98.9 Pulse 99 96 84 96 Resp 18 18 16 B/P (MAP) 125/76 (92) 132/92 (105) Pulse Ox 99 99 O2 Delivery Room Air Room Air 08/13/17 08/13/17 08/13/17 08/13/17 09:05 10:00 11:05 12:05 Temp 98.1 98.0 97.9 98.8 Pulse 101 100 88 94 Resp 18 18 18 18 B/P (MAP) 128/92 (104) 124/83 (97) 117/77 (90) 133/89 (104) Pulse Ox 97 98 99 97 O2 Delivery Room Air Room Air Room Air Room Air 08/13/17 08/13/17 13:10 14:38 Temp 98.2 98.5 Pulse 93 104 Resp 18 18 B/P (MAP) 132/92 (105) 140/88 (105) Pulse Ox 97 97 O2 Delivery Room Air Room Air Intake and Output 08/13/17 00:00 Intake Total 1460 ml Output Total 5410 ml Balance -3950 ml Physical Exam: General - Alert and oriented, no apparent distress Abdomen - Soft, appropriately tender to palpation, non-distended, fundus firm at umbilicus Incision - clean, dry and intact; no erythema or induration, no drainage Extremities - no edema, negative Garrett's bilaterally Midline incision intact. Bandage removed this am. Assessment: 1. Post-operative Day #1 s/p section (placental abruption, placenta previa, hematoperitoneum), #1 s/p TSH, bilataral salpingectomy (post hemorrhage, with exhausted medical treatment), preeclampsia. On MG 2. antepartum anemia due to iron def, and Acute blood loss anemia 2/p 4 units PRBCs. Plan: Routine post-operative care. Encourage pumping. Encourage ambulation. VTE prophylaxis: SCDs. Ferrous sulfate supplementation. Repeat CBC. May consider additional 2 units ( on hold). DC mag at 24 hours or when diuresing. Mylanta and reglan for gas. High risk of ileus. Increase to percocet 10 (did not get started on Hydrocodone 7.5 bc it was accidentally discontinued) Plan for discharge Saturday or . Vitals - Labs Vital Signs - I&O Vital Signs Date Time Temp Pulse Resp B/P (MAP) Pulse Ox O2 Delivery O2 Flow Rate FiO2 08/13/17 14:38 98.5 104 18 140/88 (105) 97 Room Air 08/13/17 13:10 98.2 93 18 132/92 (105) 97 Room Air 08/13/17 12:05 98.8 94 18 133/89 (104) 97 Room Air 08/13/17 11:05 97.9 88 18 117/77 (90) 99 Room Air 08/13/17 10:00 98.0 100 18 124/83 (97) 98 Room Air 08/13/17 09:05 98.1 101 18 128/92 (104) 97 Room Air 08/13/17 08:00 98.9 96 16 132/92 (105) 99 Room Air 08/13/17 07:00 84 08/13/17 07:00 98.7 96 18 125/76 (92) 99 Room Air 08/13/17 07:00 99 18 08/13/17 06:00 99 18 08/13/17 06:00 99.4 105 18 120/77 (91) 99 Room Air 08/13/17 05:00 98.9 97 18 127/94 (105) 98 Room Air 08/13/17 05:00 97 18 08/13/17 04:00 106 20 08/13/17 04:00 99.1 106 20 134/89 (104) 97 Room Air 08/13/17 03:00 112 20 08/13/17 03:00 99.3 112 20 123/81 (95) 98 Room Air 08/13/17 02:00 100.5 138 20 123/81 (95) 98 Room Air 08/13/17 02:00 138 20 08/13/17 01:00 119 20 08/13/17 01:00 99.6 119 20 121/88 (99) 99 Room Air 08/13/17 01:00 98 08/13/17 00:11 114 18 08/12/17 23:58 99.1 114 22 119/76 (90) 99 Room Air 08/12/17 23:00 99.7 120 20 131/94 (106) 99 Room Air 08/12/17 23:00 120 18 08/12/17 22:00 136 20 08/12/17 22:00 100.1 136 22 125/88 (100) 100 Nasal Cannula 3.00 08/12/17 21:00 100 Nasal Cannula 3.00 08/12/17 21:00 102.1 120 22 150/104 (119) 100 Nasal Cannula 3.00 08/12/17 21:00 110 20 08/12/17 20:00 100.0 96 20 142/94 (110) 100 Nasal Cannula 3.00 08/12/17 20:00 96 20 08/12/17 19:09 100.2 79 22 176/97 (123) 100 Nasal Cannula 3.00 08/12/17 19:00 79 20 08/12/17 19:00 92 I & O 08/13/17 07:00 Intake Total 3780 ml Output Total 6530 ml Balance -2750 ml Labs Laboratory Tests 08/12/17 19:25: Hemoglobin 8.9L, Hematocrit 26L 08/13/17 06:09: Hemoglobin 7.7L, Hematocrit 22L, White Blood Count 11.7H, Red Blood Count 2.51L , Mean Corpuscular Volume 87, Mean Corpuscular Hemoglobin 31, Mean Corpuscular Hemoglobin Concent 35, Red Cell Distribution Width 15.6H, Platelet Count 177, Mean Platelet Volume 10.6H, Neutrophils (%) (Auto) 72, Lymphocytes (%) (Auto) 20 , Monocytes (%) (Auto) 8, Eosinophils (%) (Auto) 0, Basophils (%) (Auto) 0, Neutrophils # (Auto) 8.4H, Lymphocytes # (Auto) 2.4, Monocytes # (Auto) 0.9, Eosinophils # (Auto) 0.0, Basophils # (Auto) 0.0 Microbiology 08/12/17 Urine Culture - Preliminary, Resulted GARCIA,ISHA C DO Aug 13, 2017 16:52
--- NOTE | 2017-08-13 16:59 | Progress Note ---
Subjective Date Seen by Provider: Aug 13, 2017 Time Seen by Provider: 13:05 Subjective/Events-last exam Patient sitting in chair. Still with pain but able to move a little better now. Patient had hysterectomy blso yesterday evening. Patient has had to be transfused and hgb 7.7 last blood draw. patient with no other complaints at this time. Denies n/v fever fever sweats chills shortness of breath or chest pain at this time. Objective Exam Vital Signs Date Time Temp Pulse Resp B/P (MAP) Pulse Ox O2 Delivery O2 Flow Rate FiO2 08/13/17 14:38 98.5 104 18 140/88 (105) 97 Room Air 08/13/17 13:10 98.2 93 18 132/92 (105) 97 Room Air 08/13/17 12:05 98.8 94 18 133/89 (104) 97 Room Air 08/13/17 11:05 97.9 88 18 117/77 (90) 99 Room Air 08/13/17 10:00 98.0 100 18 124/83 (97) 98 Room Air 08/13/17 09:05 98.1 101 18 128/92 (104) 97 Room Air 08/13/17 08:00 98.9 96 16 132/92 (105) 99 Room Air 08/13/17 07:00 84 08/13/17 07:00 98.7 96 18 125/76 (92) 99 Room Air 08/13/17 07:00 99 18 08/13/17 06:00 99 18 08/13/17 06:00 99.4 105 18 120/77 (91) 99 Room Air 08/13/17 05:00 98.9 97 18 127/94 (105) 98 Room Air 08/13/17 05:00 97 18 08/13/17 04:00 106 20 08/13/17 04:00 99.1 106 20 134/89 (104) 97 Room Air 08/13/17 03:00 112 20 08/13/17 03:00 99.3 112 20 123/81 (95) 98 Room Air 08/13/17 02:00 100.5 138 20 123/81 (95) 98 Room Air 08/13/17 02:00 138 20 08/13/17 01:00 119 20 08/13/17 01:00 99.6 119 20 121/88 (99) 99 Room Air 08/13/17 01:00 98 08/13/17 00:11 114 18 08/12/17 23:58 99.1 114 22 119/76 (90) 99 Room Air 08/12/17 23:00 99.7 120 20 131/94 (106) 99 Room Air 08/12/17 23:00 120 18 08/12/17 22:00 136 20 08/12/17 22:00 100.1 136 22 125/88 (100) 100 Nasal Cannula 3.00 08/12/17 21:00 100 Nasal Cannula 3.00 08/12/17 21:00 102.1 120 22 150/104 (119) 100 Nasal Cannula 3.00 08/12/17 21:00 110 20 08/12/17 20:00 100.0 96 20 142/94 (110) 100 Nasal Cannula 3.00 08/12/17 20:00 96 20 08/12/17 19:09 100.2 79 22 176/97 (123) 100 Nasal Cannula 3.00 08/12/17 19:00 79 20 08/12/17 19:00 92 I & O 08/13/17 07:00 Intake Total 3780 ml Output Total 6530 ml Balance -2750 ml Capillary Refill : General Appearance: No Apparent Distress, WD/WN, Anxious HEENT: TMs Normal, Normal ENT Inspection, Pharynx Normal Neck: Non Tender, Supple Respiratory: Chest Non Tender, Lungs Clear, Normal Breath Sounds Cardiovascular: Regular Rate, Rhythm Gastrointestinal: tenderness (diffuse tenderness with palpation) Extremity: Normal Capillary Refill, Normal Inspection Neurologic/Psychiatric: Alert, Oriented x3, No Motor/Sensory Deficits Skin: Normal Color Lymphatic: No Adenopathy Results Lab Laboratory Tests 08/12/17 19:25: Hemoglobin 8.9L, Hematocrit 26L 08/13/17 06:09: Hemoglobin 7.7L, Hematocrit 22L, White Blood Count 11.7H, Red Blood Count 2.51L , Mean Corpuscular Volume 87, Mean Corpuscular Hemoglobin 31, Mean Corpuscular Hemoglobin Concent 35, Red Cell Distribution Width 15.6H, Platelet Count 177, Mean Platelet Volume 10.6H, Neutrophils (%) (Auto) 72, Lymphocytes (%) (Auto) 20 , Monocytes (%) (Auto) 8, Eosinophils (%) (Auto) 0, Basophils (%) (Auto) 0, Neutrophils # (Auto) 8.4H, Lymphocytes # (Auto) 2.4, Monocytes # (Auto) 0.9, Eosinophils # (Auto) 0.0, Basophils # (Auto) 0.0 Microbiology 08/12/17 Urine Culture - Preliminary, Resulted Assessment/Plan Assessment/Plan Assessment/Plan 32 year old female s/p and exploration for placental abruption patient had post hemorrhage and had hysterectomy blso anemia requiring transfusion, secondary to placental abruption and post hemorrhage tolerating diet continue pain control incentive spirometry follow hgb and transfuse prn Clinical Quality Measures DVT/VTE Risk/Contraindication: Risk Factor Score Per Nursin RFS Level Per Nursing on Admit: 1=Low/No VTE PPX FLY STRINGER DO Aug 13, 2017 16:59
[2017-08-13] MEDS ORDERED: NS (IVPB) 250 ML IV ONE (17:45)
[2017-08-13] MEDS ORDERED: ZOLPIDEM 5 MG (AMBIEN) TAB PO NR (20:15)
[2017-08-13] MEDS: LABETALOL 200 MG (NORMODYNE) TAB PO SCH (22:05)
[2017-08-13] MEDS ORDERED: ACETAMINOPHEN 500 MG TAB (TYLENOL) PO ONE (22:15)
[2017-08-14 00:25] VITALS: BP 135/93
[2017-08-14] MEDS: METOCLOPRAMIDE INJ 10 MG/2 ML (REGLAN) IVP SCH ×2 (00:50→08:03)
[2017-08-14] MEDS: CATHETER FLUSH 10 ML SYR IV SCH (00:50)
[2017-08-14] MEDS: IBUPROFEN 600 MG (MOTRIN) TAB PO SCH ×3 (02:18→13:45)
[2017-08-14] MEDS: oxyCODONE/APAP 10/325MG (PERCOCET 10) TABLET PO PRN ×3 (02:19→13:45)
[2017-08-14 04:45] VITALS: BP 140/85
[2017-08-14 06:26] LABS: BASOPHILS % (AUTO) 0 % (0-10); EOSINOPHILS % (AUTO) 0 % (0-10); HEMATOCRIT 25 % (35-52); HEMOGLOBIN 8.6 G/DL (11.5-16.0); LYMPHOCYTES # (AUTO) 2.4 X 10^3 (1.0-4.0); LYMPHOCYTES % (AUTO) 27 % (12-44); MEAN CORPUSCULAR HEMOGLOBIN 30 PG (25-34); MEAN CORPUSCULAR HGB CONC 34 G/DL (32-36); MEAN CORPUSCULAR VOLUME 87 FL (80-99); MEAN PLATELET VOLUME 10.3 FL (7.4-10.4); MONOCYTES # (AUTO) 0.5 X 10^3 (0.0-1.0); MONOCYTES % (AUTO) 6 % (0-12); NEUTROPHILS # (AUTO) 5.9 X 10^3 (1.8-7.8); NEUTROPHILS % (AUTO) 67 % (42-75); PLATELET COUNT 152 10^3/uL (130-400); RED BLOOD COUNT 2.86 10^6/uL (4.35-5.85); RED CELL DISTRIBUTION WIDTH 15.7 % (10.0-14.5); WHITE BLOOD COUNT 8.8 10^3/uL (4.3-11.0)
[2017-08-14 07:50] VITALS: BP 156/95
[2017-08-14] MEDS: LABETALOL 200 MG (NORMODYNE) TAB PO SCH (08:03)
[2017-08-14] MEDS: FERROUS SULF 325 MG (IRON) TAB PO SCH (08:03)
[2017-08-14] MEDS: DOCUSATE SODIUM 100 MG (COLACE) CAP PO SCH (08:03)
--- NOTE | 2017-08-14 08:25 | Postpartum Progress Note ---
Post Op Post-operative Day #2 s/p emergency CS, hysterectomy s/p Magnesium for preeclampsia s/p 6 units PRBCs due to post hemorrhage, placental previa and abruption Labetalol 200 mg po started last night due to increasing blood pressures. Subjective: Patient is without complaints. Ambulating, voiding after stevenson removed. Tolerating a regular diet without nausea or vomiting. Normal lochia. Pain is partially controlled with oral pain medications. Passing flatus. pumping. Objective: Laboratory Tests Test 08/14/17 05:28 Range/Units White Blood Count 8.8 4.3-11.0 10^3/uL Red Blood Count 2.86 L 4.35-5.85 10^6/uL Hemoglobin 8.6 L 11.5-16.0 G/DL Hematocrit 25 L 35-52 % Mean Corpuscular Volume 87 80-99 FL Mean Corpuscular Hemoglobin 30 25-34 PG Mean Corpuscular Hemoglobin Concent 34 32-36 G/DL Red Cell Distribution Width 15.7 H 10.0-14.5 % Platelet Count 152 130-400 10^3/uL Mean Platelet Volume 10.3 7.4-10.4 FL Neutrophils (%) (Auto) 67 42-75 % Lymphocytes (%) (Auto) 27 12-44 % Monocytes (%) (Auto) 6 0-12 % Eosinophils (%) (Auto) 0 0-10 % Basophils (%) (Auto) 0 0-10 % Neutrophils # (Auto) 5.9 1.8-7.8 X 10^3 Lymphocytes # (Auto) 2.4 1.0-4.0 X 10^3 Monocytes # (Auto) 0.5 0.0-1.0 X 10^3 Eosinophils # (Auto) 0.0 0.0-0.3 10^3/uL Basophils # (Auto) 0.0 0.0-0.1 10^3/uL Vital Sign - Last 12Hours 08/13/17 08/13/17 08/13/17 08/13/17 20:40 21:20 21:20 22:10 Temp 99.9 99.9 100.1 Pulse 91 91 Resp 16 18 B/P (MAP) 154/100 (118) 133/97 133/97 (109) Pulse Ox 96 O2 Delivery Room Air Room Air 108/13/17 08/13/17 08/13/17 22:19 22:25 22:25 22:40 Temp 100.1 99.7 99.7 98.9 Pulse 95 95 Resp 16 18 B/P (MAP) 132/92 132/92 (105) Pulse Ox 97 O2 Delivery Room Air Room Air 08/13/17 08/13/17 08/14/17 08/14/17 22:40 22:40 00:25 00:25 Temp 98.9 98.9 97.9 97.0 Pulse 101 101 97 97 Resp 16 18 16 16 B/P (MAP) 127/84 127/84 (98) 135/93 (107) 135/93 Pulse Ox 97 97 96 96 O2 Delivery Room Air Room Air Room Air 08/14/17 08/14/17 08/14/17 01:00 04:45 07:00 Temp 98.3 Pulse 87 77 52 Resp 18 B/P (MAP) 140/85 (103) Pulse Ox 98 O2 Delivery Room Air Intake and Output 08/14/17 00:00 Intake Total 1810 ml Output Total 1950 ml Balance -140 ml Physical Exam: General - Alert and oriented, no apparent distress Abdomen - Soft, appropriately tender to palpation, non-distended, fundus firm at umbilicus Incision - ML incision with lexa, clean, dry and intact; no erythema or induration, no drainage Extremities - no edema, negative Garrett's bilaterally Assessment: 1. Post-operative Day #2 s/p emergency CS, hysterectomy 2. preeclampsia, s/p Magnesium, labetalol 200 mg po bid 3. Acute blood loss anemia, post hemorrhage, placental abruption. s/p 6 units PRBCs Plan: Routine post-operative care. Encourage breast feeding. Encourage ambulation. VTE prophylaxis: SCDs. Ferrous sulfate supplementation. Plan for discharge tomorrow Addendum - patient is requesting dc today. May consider if BP improved with labetalol Vitals - Labs Vital Signs - I&O Vital Signs Date Time Temp Pulse Resp B/P (MAP) Pulse Ox O2 Delivery O2 Flow Rate FiO2 08/14/17 07:00 52 08/14/17 04:45 98.3 77 18 140/85 (103) 98 Room Air 08/14/17 01:00 87 08/14/17 00:25 97.0 97 16 135/93 96 Room Air 08/14/17 00:25 97.9 97 16 135/93 (107) 96 08/13/17 22:40 98.9 101 18 127/84 (98) 97 Room Air 08/13/17 22:40 98.9 101 16 127/84 97 Room Air 08/13/17 22:40 98.9 08/13/17 22:25 99.7 95 18 132/92 (105) Room Air 08/13/17 22:25 99.7 95 16 132/92 97 Room Air 08/13/17 22:19 100.1 08/13/17 22:10 100.1 08/13/17 21:20 99.9 91 18 133/97 (109) Room Air 08/13/17 21:20 99.9 91 16 133/97 96 Room Air 08/13/17 20:40 154/100 (118) 08/13/17 20:20 99.9 77 18 157/110 (126) 96 Room Air 08/13/17 19:00 91 08/13/17 18:12 99.7 87 18 137/96 97 Room Air 08/13/17 17:57 99.4 90 18 151/95 97 Room Air 08/13/17 14:38 98.5 104 18 140/88 (105) 97 Room Air 08/13/17 13:10 98.2 93 18 132/92 (105) 97 Room Air 08/13/17 12:05 98.8 94 18 133/89 (104) 97 Room Air 08/13/17 11:05 97.9 88 18 117/77 (90) 99 Room Air 08/13/17 10:00 98.0 100 18 124/83 (97) 98 Room Air 08/13/17 09:05 98.1 101 18 128/92 (104) 97 Room Air I & O 08/14/17 07:00 Intake Total 2860 ml Output Total 4950 ml Balance -2090 ml Labs Laboratory Tests 08/14/17 05:28: White Blood Count 8.8, Red Blood Count 2.86L, Hemoglobin 8.6L, Hematocrit 25L, Mean Corpuscular Volume 87, Mean Corpuscular Hemoglobin 30, Mean Corpuscular Hemoglobin Concent 34, Red Cell Distribution Width 15.7H, Platelet Count 152, Mean Platelet Volume 10.3, Neutrophils (%) (Auto) 67, Lymphocytes (%) (Auto) 27 , Monocytes (%) (Auto) 6, Eosinophils (%) (Auto) 0, Basophils (%) (Auto) 0, Neutrophils # (Auto) 5.9, Lymphocytes # (Auto) 2.4, Monocytes # (Auto) 0.5, Eosinophils # (Auto) 0.0, Basophils # (Auto) 0.0 Microbiology 08/12/17 Urine Culture - Preliminary, Resulted ISAH GARCIA DO Aug 14, 2017 08:25
[2017-08-14] MEDS ORDERED: FERROUS SULF 325 MG (IRON) TAB PO SCH (08:32)
[2017-08-14] MEDS ORDERED: IBUP-1773 PO (10:39)
[2017-08-14] MEDS ORDERED: SIME80TA16 PO (10:39)
[2017-08-14] MEDS ORDERED: FERR325T18 PO (10:39)
[2017-08-14] MEDS ORDERED: DOCU100C37 PO (10:39)
[2017-08-14] MEDS ORDERED: OXYC-465 PO (10:39)
[2017-08-14] MEDS ORDERED: LABE200T3 PO (10:39)
--- NOTE | 2017-08-14 10:42 | Discharge Inst-Women's Service ---
Discharge Inst-Women's Serv Depart Medication/Instructions New, Converted or Re-Newed RX: RX on Chart Final Diagnosis placenta previa placental abruption hematoperitoneum post hemorrhage antepartum and acute blood loss anemia preeclampsia procedure - tocolysis Magnesium sulfate for preeclampsia primary section total abdominal supracervical hysterectomy Consults/Follow Up Additional Follow Up: Yes (1 week for staple removal, [address] Ny) Activity Activity: Activity as Tolerated Driving Instructions: No Driving for 1 Week NO SMOKING: NO SMOKING Nothing Inside Vagina: No Douching, No [place], No Tampons Diet Discharge Diet: No Restrictions Symptoms to Report to : Bleeding Excessive, Eyesight Changes, Pain Increased , Fever Over 101 Degrees F, Vaginal Bleeding Increase, Cramps in Feet or Legs, Vaginal Discharge Foul For Any Problems or Questions: Contact Your Physician Skin/Wound Care Infection Signs and Symptoms: Increased Redness, Foul Odor of Wound, Increased Drainage, Skin Itchy or Has a Rash, Increased Swelling, Temperature Above 101 F Operative Area Clean and Dry: Keep Incision Clean/Dry Stitches/Laurita/Dermabond: Dermabond Bathing Instructions: ISHA Morton DO Aug 14, 2017 10:42
--- NOTE | 2017-08-14 10:57 | Cardiology Progress Note ---
Subjective Date Seen by Provider: Aug 14, 2017 Time Seen by Provider: 10:54 Subjective/Events-last exam Patient ambulating in room. Reports she is doing well. Denies any CP or palpitations. No further PVC's noted on telemetry. Review of Systems General: No Night Sweats, No Fatigue, No Malaise HEENT: No Visual Changes, No Dysphasia, No Sore Throat Pulmonary: No Dyspnea, No Cough Cardiovascular: No: Chest Pain, Palpitations, Orthopnea Gastrointestinal: Abdominal Pain (pain at surgical incision. ), No: Nausea, Vomiting Genitourinary: No Dysuria, No Frequency Musculoskeletal: No: neck pain, back pain Neurological: No: Weakness, Numbness Objective-Cardiology Exam Last Set of Vital Signs Vital Signs 08/12/17 08/14/17 22:00 07:50 Temp 98.8 Pulse 71 Resp 18 B/P (MAP) 156/95 (115) Pulse Ox 100 O2 Delivery Room Air O2 Flow Rate 3.00 Capillary Refill : I&O Intake and Output 08/14/17 00:00 Intake Total 2660 ml Output Total 2250 ml Balance 410 ml Intake Oral 1390 ml IV Total 1000 ml Other 270 ml Output Urine Total 2250 ml # Voids 2 General: Alert, Oriented X3, Cooperative HEENT: Atraumatic, PERRLA Neck: Supple, No JVD, No Thyromegaly Lungs: Clear to Auscultation, Normal Air Movement Heart: Regular Rate, Normal S1, Normal S2, No Murmurs Abdomen: Normal Bowel Sounds, No Hepatosplenomegaly Extremities: No Edema Skin: No Rashes, No Significant Lesion Neuro: Normal Gait, Normal Speech, Cranial Nerves 3-12 NL Psych/Mental Status: Mental Status NL, Mood NL Results Lab Laboratory Tests 08/14/17 05:28 A/P-Cardiology Admission Diagnosis Anemia Uterine bleeding Sinus tachycardia PVCs Chest pain Assessment/Plan Status post bleed post resulted in hysterectomy, recovering slowly. Severe anemia requiring multiple blood transfusion. Improved, H/H stable, managed by Dr. Michael Chest pain, while tachycardic and in severe distress with abdominal pain. Currently chest pain-free. No acute EKG changes suggestive of ischemia. Continue to monitor Sinus tachycardia, probably secondary to pain and anemia. Heart rate is better at this time, continue on current medication and continue to monitor. Frequent PVCs noted while she was in severe distress. Currently PVCs are better. Continue on current medication. I will d/c telemetry. Ok for discharge from Cardiology standpoint. Follow up in 4-6 weeks. Clinical Quality Measures DVT/VTE Risk/Contraindication: Risk Factor Score Per Nursin RFS Level Per Nursing on Admit: 1=Low/No VTE PPX RONEN CHILDERS Aug 14, 2017 10:57
[2017-08-14 11:00] VITALS: BP 137/77
--- NOTE | 2017-08-14 13:09 | Progress Note ---
Subjective Date Seen by Provider: Aug 14, 2017 Time Seen by Provider: 08:36 Subjective/Events-last exam Patient feeling better today. She is tolerating diet. Her pain is better controlled. She denies any nausea vomiting fever sweats chills shortness breath or chest pain. Her hemoglobin stable Objective Exam Vital Signs Date Time Temp Pulse Resp B/P (MAP) Pulse Ox O2 Delivery O2 Flow Rate FiO2 08/14/17 11:00 97.6 68 20 137/77 (97) 100 Room Air 08/14/17 07:50 100 Room Air 08/14/17 07:50 98.8 71 18 156/95 (115) 100 Room Air 08/14/17 07:00 52 08/14/17 04:45 98.3 77 18 140/85 (103) 98 Room Air 08/14/17 01:00 87 08/14/17 00:25 97.0 97 16 135/93 96 Room Air 08/14/17 00:25 97.9 97 16 135/93 (107) 96 08/13/17 22:40 98.9 101 18 127/84 (98) 97 Room Air 08/13/17 22:40 98.9 101 16 127/84 97 Room Air 08/13/17 22:40 98.9 08/13/17 22:25 99.7 95 18 132/92 (105) Room Air 08/13/17 22:25 99.7 95 16 132/92 97 Room Air 08/13/17 22:19 100.1 08/13/17 22:10 100.1 08/13/17 21:20 99.9 91 18 133/97 (109) Room Air 08/13/17 21:20 99.9 91 16 133/97 96 Room Air 08/13/17 20:40 154/100 (118) 08/13/17 20:20 99.9 77 18 157/110 (126) 96 Room Air 08/13/17 19:00 91 08/13/17 18:12 99.7 87 18 137/96 97 Room Air 08/13/17 17:57 99.4 90 18 151/95 97 Room Air 08/13/17 14:38 98.5 104 18 140/88 (105) 97 Room Air 08/13/17 13:10 98.2 93 18 132/92 (105) 97 Room Air I & O 08/14/17 07:00 Intake Total 2860 ml Output Total 4950 ml Balance -2090 ml Capillary Refill : General Appearance: No Apparent Distress, WD/WN HEENT: Normal ENT Inspection, Pharynx Normal Neck: Non Tender, Supple Respiratory: Chest Non Tender, Lungs Clear, Normal Breath Sounds Cardiovascular: Regular Rate, Rhythm Gastrointestinal: tenderness (Incisional tenderness), other (No signs of infection) Extremity: Normal Capillary Refill, Normal Inspection Neurologic/Psychiatric: Alert, Oriented x3, No Motor/Sensory Deficits Skin: Normal Color Lymphatic: No Adenopathy Results Lab Laboratory Tests 08/14/17 05:28: White Blood Count 8.8, Red Blood Count 2.86L, Hemoglobin 8.6L, Hematocrit 25L, Mean Corpuscular Volume 87, Mean Corpuscular Hemoglobin 30, Mean Corpuscular Hemoglobin Concent 34, Red Cell Distribution Width 15.7H, Platelet Count 152, Mean Platelet Volume 10.3, Neutrophils (%) (Auto) 67, Lymphocytes (%) (Auto) 27 , Monocytes (%) (Auto) 6, Eosinophils (%) (Auto) 0, Basophils (%) (Auto) 0, Neutrophils # (Auto) 5.9, Lymphocytes # (Auto) 2.4, Monocytes # (Auto) 0.5, Eosinophils # (Auto) 0.0, Basophils # (Auto) 0.0 Microbiology 08/12/17 Urine Culture - Final, Complete Presumptive Catherine Albicans Assessment/Plan Assessment/Plan Assessment/Plan 32 year old female s/p and exploration for placental abruption patient had post hemorrhage and had hysterectomy blso anemia requiring transfusion, secondary to placental abruption and post hemorrhage Hemoglobin is stable. She's tolerating diet. Will sign off, call if needed Clinical Quality Measures DVT/VTE Risk/Contraindication: Risk Factor Score Per Nursin RFS Level Per Nursing on Admit: 1=Low/No VTE PPX FLY STRINGER DO Aug 14, 2017 13:09
--- NOTE | 2017-08-15 23:13 | OPERATIVE REPORT ---
DATE OF SERVICE: 08/12/2017 PREOPERATIVE DIAGNOSES: Severe abdominal pain, surgical abdomen, placenta previa, labor and bradycardia. POSTOPERATIVE DIAGNOSES: Placental abruption, pneumoperitoneum, placental previa. PROCEDURE: Exploratory laparotomy and assist on emergency . ESTIMATED BLOOD LOSS: 650 mL. COMPLICATIONS: None. INDICATIONS: The patient is a 32-year-old female who presented to the hospital earlier in the morning with severe abdominal pain and having contractions that were going every two to three minutes. Her contractions were able to be slowed, but she was continuing to have severe abdominal pain. The patient had a temperature up to 100.2 and with her severe abdominal pain, there was concern for appendicitis. Her white count was not elevated and her hemoglobin was decreased. There was still concern for possible ruptured appendicitis and also with the patient's severe tenderness, she did have a surgical abdomen. An ultrasound was obtained which had some simple fluid outside of the uterus with no obvious abruption. We are discussing possibility of doing a diagnostic laparoscopy to determine the cause of the fluid due to concern for possible ruptured appendicitis or other causes. At this time, the fetus had bradycardia and we went for immediate section and exploration. The section was performed first. Please see Dr. Michael's dictation for this part. Once entering the abdomen, a large amount of blood within the abdomen was noted. This was indicating retroplacental bleeding likely due to placental abruption. Once amniotomy was performed, there were bloody fluid returned and the baby was delivered. The placenta was then delivered in pieces. The uterus was cleared of all clots and debris, and the uterus was then closed. Once closed, the abdomen was then inspected. The small bowel was ran from the cecum to the ligament of Treitz with no abnormalities noted. The colon was inspected. The appendix was normal without any signs of appendicitis or perforation. The colon all appeared normal. The liver in left lower quadrant of the abdomen was inspected without any abnormality. Liver was palpated feeling no abnormalities as well. At this time, the abdomen was irrigated with copious amounts of irrigation. I assisted enclosing the peritoneum and then Dr. Michael closed the remainder of the abdomen herself. Please see rest of Dr. Michael's dictation. Job ID: [id number] DocumentID: [id number] Dictated Date: 08/15/2017 15:10:13 Manager Quality Compliance Date: 08/15/2017 23:12:40 Dictated By: FLY STRINGER DO
== END 2017-08-14 14:00 | disposition home or self-care (01) | DRG 765 ==
LOC: 3RD 23:18 → WSo 23:18 → 3RD 08-12 00:17 → WSo 08-12 00:17 → LDRP 08-12 00:41
PROVIDERS: ADMIT Obstetrics & Gynecology; ATTEND Obstetrics & Gynecology
PROC: 0UT90ZL Resection of Uterus, Supracervical, Open Approach (ICD-10-PCS; 2017-08-12)
PROC: 0UT70ZZ Resection of Bilateral Fallopian Tubes, Open Approach (ICD-10-PCS; 2017-08-12)
PROC: 10D00Z1 Extraction of Products of Conception, Low, Open Approach (ICD-10-PCS; principal; 2017-08-12 07:15)
DX: O60.14X0 Preterm labor third trimester with preterm delivery third trimester, not applicable or unspecified (principal); O44.03 Complete placenta previa NOS or without hemorrhage, third trimester; O45.93 Premature separation of placenta, unspecified, third trimester; O99.613 Diseases of the digestive system complicating pregnancy, third trimester; K66.1 Hemoperitoneum; O76 Abnormality in fetal heart rate and rhythm complicating labor and delivery; O72.1 Other immediate postpartum hemorrhage; O99.42 Diseases of the circulatory system complicating childbirth; I49.3 Ventricular premature depolarization; R00.0 Tachycardia, unspecified; O14.94 Unspecified pre-eclampsia, complicating childbirth; O99.013 Anemia complicating pregnancy, third trimester; D64.9 Anemia, unspecified; O90.81 Anemia of the puerperium; D62 Acute posthemorrhagic anemia; Z37.0 Single live birth; Z3A.32 32 weeks gestation of pregnancy
CPT/HCPCS: 36415; 71045; 76815; 80048; 80053; 81000; 82150; 82805; 83690; 83735; 83880; 84484; 85014; 85018; 85025; 85027; 85379; 85384; 85610; 85730; 86850; 86900; 86901; 86920; 87088; 93005; 94664; 99212

== ENCOUNTER 2017-08-18 21:47 | Emergency (ER) | payer MEDICAID ==
[~2017-08-18] VITALS: Ht 162.6 cm; Wt 52.2 kg
[~2017-08-18 21:47] MED LIST changes: +DOCU100C37 PO; +FERR325T18 PO; +IBUP-1773 PO; +LABE200T3 PO; +OXYC-465 PO; +SIME80TA16 PO
[2017-08-18 22:45] LABS: BASOPHILS % (AUTO) 0 % (0-10); EOSINOPHILS # (AUTO) 0.1 10^3/uL (0.0-0.3); EOSINOPHILS % (AUTO) 1 % (0-10); HEMATOCRIT 36 % (35-52); HEMOGLOBIN 11.9 G/DL (11.5-16.0); LYMPHOCYTES # (AUTO) 1.7 X 10^3 (1.0-4.0); LYMPHOCYTES % (AUTO) 18 % (12-44); MEAN CORPUSCULAR HEMOGLOBIN 31 PG (25-34); MEAN CORPUSCULAR HGB CONC 33 G/DL (32-36); MEAN CORPUSCULAR VOLUME 93 FL (80-99); MEAN PLATELET VOLUME 8.9 FL (7.4-10.4); MONOCYTES # (AUTO) 0.7 X 10^3 (0.0-1.0); MONOCYTES % (AUTO) 7 % (0-12); NEUTROPHILS # (AUTO) 7.1 X 10^3 (1.8-7.8); NEUTROPHILS % (AUTO) 74 % (42-75); PLATELET COUNT 477 10^3/uL (130-400); RED BLOOD COUNT 3.88 10^6/uL (4.35-5.85); RED CELL DISTRIBUTION WIDTH 16.5 % (10.0-14.5); WHITE BLOOD COUNT 9.6 10^3/uL (4.3-11.0)
[2017-08-18 22:58] LABS: ALANINE AMINOTRANSFERASE 9 U/L (0-55); ALBUMIN 3.9 GM/DL (3.2-4.5); ALKALINE PHOSPHATASE 79 U/L (40-136); BILIRUBIN,TOTAL 0.9 MG/DL (0.1-1.0); BUN/CREATININE RATIO 30; CALCIUM 9.4 MG/DL (8.5-10.1); CARBON DIOXIDE 18 MMOL/L (21-32); CHLORIDE 107 MMOL/L (98-107); CREATININE SERUM 0.63 MG/DL (0.60-1.30); GFR ESTIMATED > 60; GLUCOSE 105 MG/DL (70-105); POTASSIUM 3.9 MMOL/L (3.6-5.0); SODIUM 138 MMOL/L (135-145); TOTAL PROTEIN 7.2 GM/DL (6.4-8.2)
[2017-08-18 23:56] LABS: CLARITY,URINE CLEAR; COLOR,URINE YELLOW; PH,URINE 6.5 (5-9); PROTEIN,URINE 2+ (NEGATIVE)
[2017-08-18 23:57] LABS: BILIRUBIN,URINE NEGATIVE (NEGATIVE); GLUCOSE, URINE (UA) NEGATIVE (NEGATIVE); KETONES,URINE NEGATIVE (NEGATIVE); LEUKOCYTE ESTERASE ,URINE 1+ (NEGATIVE); NITRITE,URINE NEGATIVE (NEGATIVE); UROBILINOGEN,URINE NORMAL (NORMAL)
[2017-08-18 23:59] LABS: BACTERIA,URINE TRACE /HPF; RBC,URINE RARE /HPF; WBC,URINE RARE /HPF
[2017-08-19] MEDS ORDERED: NS IV 1000 ML 1,000 ML ONE
[2017-08-19] MEDS ORDERED: NS IV 1000 ML 1,000 ML IV ONE
--- NOTE | 2017-08-19 00:05 | ED General ---
General Chief Complaint: Fever-Adult/Adol Stated Complaint: HYSTERECTOMY POST 1 WEEK FEVER Nursing Triage Note: fever 1 week post c/s and hysterectomy. Nursing Sepsis Screen: Possible Sepsis Risk Source of Information: Patient Exam Limitations: No Limitations History of Present Illness Date Seen by Provider: Aug 19, 2017 Time Seen by Provider: 23:51 Initial Comments Here with report of mild fever tonight. She is status post hysterectomy emergently after emergent 1 week ago. She apparently had some post leading of significance that required the hysterectomy. Child was delivered at 32 weeks and is currently at [facility] in [place] but doing well. Patient has been staying at the [facility] near [facility] in [place]. Has had some diarrhea recently and mild cough also noted a little bit of dysuria. States the abdominal pain is still there after the hysterectomy but is improving day today. She is due to have her lexa out tomorrow. Timing/Duration: 2-3 Days Severity: Mild Associated Systoms: No Chest Pain, Fever/Chills, No Nausea/Vomiting, No Shortness of Air, No Weakness Allergies and Home Medications Allergies Coded Allergies: cephalexin (Verified Allergy, Severe, RASH, Pt has received Ampicilin in the past, 08/12/17) codeine (Verified Allergy, Mild, HIVES, FLUSHING, BURNING FEELING, 08/13/17 ) Patient has received Morphine, Hydromorphone and Lortab on previous visits without issue tramadol (Verified Adverse Reaction, Unknown, VOMITING, 07/28/16) Home Medications Docusate Sodium 100 Mg Capsule, 100 MG PO BID, #60 Prescribed by: ISHA GARCIA on 08/14/17 1039 Ferrous Sulfate 325 Mg Tablet, 325 MG PO BID WITH MEALS, #120 Prescribed by: ISHA GARCIA on 08/14/17 1039 Ibuprofen 600 Mg Tablet, 600 MG PO Q6H, #60 Ref 1 Prescribed by: ISHA GARCIA on 08/14/17 1039 Labetalol HCl 200 Mg Tablet, 200 MG PO BID, #60 Prescribed by: ISHA GARCIA on 08/14/17 1039 Oxycodone HCl/Acetaminophen 1 Each Tablet, 1 TAB PO Q6H PRN for PAIN-MODERATE, # 40 Ref 0 Prescribed by: ISHA GARCIA on 08/14/17 1039 Vit No.124/Iron/FA 1 Each Tablet, 1 EACH PO DAILY, (Reported) Simethicone 80 Mg Tab.chew, 80 MG PO Q2HR PRN for gas, #60 Prescribed by: ISHA GARCIA on 08/14/17 1039 Constitutional: see HPI, No chills, fever (mild low-grade) EENTM: nose congestion, No throat pain Respiratory: cough, No short of breath Cardiovascular: no symptoms reported Gastrointestinal: no symptoms reported Genitourinary: see HPI, dysuria, pain : No Musculoskeletal: no symptoms reported Skin: see HPI, other (postop incision midline lower abdomen) Psychiatric/Neurological: No Symptoms Reported All Other Systems Reviewed Negative Unless Noted: Yes Past Yhlhqfg-Scseye-Gihpfm Hx Patient Social History Alcohol Use: Denies Use Recreational Drug Use: No Smoking Status: Never a Smoker 2nd Hand Smoke Exposure: No Recent Foreign Travel: No Contact w/Someone Who Travel: No Recent Infectious Disease Expo: No Recent Hopitalizations: No Physical Abuse: No Sexual Abuse: No Mistreated: No Fear: No Immunizations Up To Date Tetanus Booster (TDap): Unknown PED Vaccines UTD: Yes Date of Influenza Vaccine: Apr 19, 2017 Seasonal Allergies Seasonal Allergies: No Surgeries History of Surgeries: Yes (WISDOM TEETH REMOVED) Surgeries: Section, Gallbladder, Hysterectomy Respiratory History of Respiratory Disorde: No Cardiovascular History of Cardiac Disorders: No Neurological History of Neurological Disord: No Neurological Disorders: Headaches /Migraines 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 System Hx 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 Disorders: No Sexually Transmitted Disease: No HIV/AIDS: No Female 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 Disorders: Ovarian Cyst 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 Genitourinary History of Genitourinary Disor: No Gastrointestinal History of Gastrointestinal Di: No Musculoskeletal History of Musculoskeletal Dis: Yes Musculoskeletal Disorders: Arthritis, Chronic Back Pain Endocrine History of Endocrine Disorders: No HEENT History of HEENT Disorders: No Cancer History of Cancer: No Psychosocial History of Psychiatric Problem: Yes Behavioral Health Disorders: Anxiety Suicide Risk Score: 1 Integumentary History of Skin or Integumenta: No Skin/Integumentary Disorders: Recent Skin Changes Blood Transfusions History of Blood Disorders: No Adverse Reaction to a Blood Tr: No Reviewed Nursing Assessment Reviewed/Agree w Nursing PMH: Yes Family Medical History Significant Family History: No Pertinent Family Hx Family Medial History: Arthritis 19 FATHER Hypertension 19 FATHER Physical Exam Vital Signs Vital Sign - Last 12Hours 08/18/17 21:58 Temp 99.2 Pulse 104 Resp 20 B/P (MAP) 129/89 (102) Pulse Ox 98 O2 Delivery Room Air Capillary Refill : Less Than 3 Seconds General Appearance: No Apparent Distress, WD/WN HEENT: PERRL/EOMI, Pharynx Normal Neck: Non Tender, Supple Respiratory: Lungs Clear, Normal Breath Sounds Cardiovascular: No Murmur, Tachycardia Gastrointestinal: Non Tender, Soft Back: Normal Inspection, No CVA Tenderness, No Vertebral Tenderness Extremity: Normal Range of Motion, Non Tender Neurologic/Psychiatric: Alert, Oriented x3 Skin: Warm/Dry, Ecchymosis (near incision.), Other (midline vertical hysterectomy incision clean, dry and intact without any drainage. There is some bruising around the wound but no evidence of infection.) Focused Exam Evaluation Lactate Level Laboratory Tests 08/18/17 22:05: Lactic Acid Level 0.95 Lactic Acid Level Laboratory Tests Test 08/18/17 22:05 Lactic Acid Level 0.95 MMOL/L (0.50-2.00) Progress/Results/Core Measures Suspected Sepsis Recent Fever Within 48 Hours: Yes Infection Criteria Present: Suspected New Infection New/Unexplained Altered Menta: No Sepsis Screen: Possible Sepsis Risk Sepsis Diagnosis: SIRS Temperature:99.2 Pulse: 104 Respiratory Rate: 20 Laboratory Tests 08/18/17 22:05: White Blood Count 9.6 Blood Pressure 129 /89 Mean: 102 Laboratory Tests 08/18/17 22:05: Lactic Acid Level 0.95 Laboratory Tests 08/18/17 22:05: Creatinine 0.63, Platelet Count 477H, Total Bilirubin 0.9 Results/Orders Lab Results Laboratory Tests Test 08/18/17 22:05 08/18/17 23:36 Range/Units White Blood Count 9.6 4.3-11.0 10^3/uL Red Blood Count 3.88 L 4.35-5.85 10^6/uL Hemoglobin 11.9 # 11.5-16.0 G/DL Hematocrit 36 35-52 % Mean Corpuscular Volume 93 80-99 FL Mean Corpuscular Hemoglobin 31 25-34 PG Mean Corpuscular Hemoglobin Concent 33 32-36 G/DL Red Cell Distribution Width 16.5 H 10.0-14.5 % Platelet Count 477 H 130-400 10^3/uL Mean Platelet Volume 8.9 7.4-10.4 FL Neutrophils (%) (Auto) 74 42-75 % Lymphocytes (%) (Auto) 18 12-44 % Monocytes (%) (Auto) 7 0-12 % Eosinophils (%) (Auto) 1 0-10 % Basophils (%) (Auto) 0 0-10 % Neutrophils # (Auto) 7.1 1.8-7.8 X 10^3 Lymphocytes # (Auto) 1.7 1.0-4.0 X 10^3 Monocytes # (Auto) 0.7 0.0-1.0 X 10^3 Eosinophils # (Auto) 0.1 0.0-0.3 10^3/uL Basophils # (Auto) 0.0 0.0-0.1 10^3/uL Sodium Level 138 135-145 MMOL/L Potassium Level 3.9 3.6-5.0 MMOL/L Chloride Level 107 98-107 MMOL/L Carbon Dioxide Level 18 L 21-32 MMOL/L Anion Gap 13 5-14 MMOL/L Blood Urea Nitrogen 19 H 7-18 MG/DL Creatinine 0.63 0.60-1.30 MG/DL Estimat Glomerular Filtration Rate > 60 BUN/Creatinine Ratio 30 Glucose Level 105 70-105 MG/DL Lactic Acid Level 0.95 0.50-2.00 MMOL/L Calcium Level 9.4 8.5-10.1 MG/DL Total Bilirubin 0.9 0.1-1.0 MG/DL Aspartate Amino Transf (AST/SGOT) 12 5-34 U/L Alanine Aminotransferase (ALT/SGPT) 9 0-55 U/L Alkaline Phosphatase 79 40-136 U/L Total Protein 7.2 6.4-8.2 GM/DL Albumin 3.9 3.2-4.5 GM/DL Urine Color YELLOW Urine Clarity CLEAR Urine pH 6.5 5-9 Urine Specific [place] 1.010 L 1.016-1.022 Urine Protein 2+ H NEGATIVE Urine Glucose (UA) NEGATIVE NEGATIVE Urine Ketones NEGATIVE NEGATIVE Urine Nitrite NEGATIVE NEGATIVE Urine Bilirubin NEGATIVE NEGATIVE Urine Urobilinogen NORMAL NORMAL MG/DL Urine Leukocyte Esterase 1+ H NEGATIVE Urine RBC (Auto) 1+ H NEGATIVE Urine RBC RARE /HPF Urine WBC RARE /HPF Urine Squamous Epithelial Cells 5-10 /HPF Urine Crystals NONE /LPF Urine Bacteria TRACE /HPF Urine Casts NONE /LPF Urine Mucus LARGE H /LPF Urine Culture Indicated NO Micro Results Microbiology 08/18/17 Influenza Types A,B Antigen ([facility]) - Final, Complete My Orders Orders - SUDHEER PETERSEN MD Cbc With Automated Diff (08/18/17 22:31) Comprehensive Metabolic Panel (08/18/17 22:31) Ua Culture If Indicated (08/18/17 22:31) Lactic Acid Analyzer (08/18/17 22:31) Blood Culture (08/18/17 22:31) Influenza A And B Antigens (08/19/17 00:00) Ns Iv 1000 Ml (Sodium Chloride 0.9%) (08/19/17 00:00) Ns Iv 1000 Ml (Sodium Chloride 0.9%) (08/19/17 00:00) Medications Given in ED Current Medications Medications Dose Ordered Sig/Greg Route Start Time Stop Time Status Last Admin Dose Admin Sodium Chloride 1,000 ml @ 0 mls/hr Q0M ONCE IV 08/19/17 00:00 08/19/17 00:02 DC 08/19/17 00:05 1,000 MLS/HR Vital Signs/I&O Vital Sign - Last 12Hours 08/18/17 21:58 Temp 99.2 Pulse 104 Resp 20 B/P (MAP) 129/89 (102) Pulse Ox 98 O2 Delivery Room Air Capillary Refill : Less Than 3 Seconds Blood Pressure Mean: 102 Progress Note : Progress Note Seen and evaluated. IV, labs, blood cultures and lactic acid ordered. UA ordered. Influenza screen ordered. Monitor patient. Normal saline 1 L bolus ordered. Monitor patient. 0055: Heart rate improved nicely after IV fluids and currently is 84. No significant abnormality on labs and influenza is negative. UA does not show urinary tract infection. I think the fever may be a product of dehydration at this point. Overall doing better. Discharged home with return precautions. Patient and family verbalize understanding instructions and agreement with plan. She does have appointment with Dr. Barrett at 2 p.m. today and will keep that appointment. Departure Impression Impression: Primary Impression: Fever Qualified Codes: R50.9 - Fever, unspecified Disposition: 01 HOME, SELF-CARE Condition: Improved Departure-Patient Inst. Decision time for Depature: 00:59 Referrals: PHIL BARRETT DO (PCP/Family) Primary Care Physician Patient Instructions: Fever, Adult (DC) Add. Discharge Instructions: All discharge instructions reviewed with patient and/or family. Voiced understanding. Continue medications as previously prescribed. You may stop the Dulcolax if you 're having diarrhea. Continue with high fiber diet. Drink plenty of fluids. Keep follow-up appointment as scheduled. Return for worse pain, fever, vomiting , weakness, breathing problems or other concerns as needed. Copy Copies To 1: PHIL BARRETT TIMOTHY D MD Aug 19, 2017 00:05
[2017-08-19 01:10] VITALS: BP 123/77
== END 2017-08-19 01:10 | disposition home or self-care (01) ==
LOC: EDUNIT# 21:47 → ER 21:50
DX: O99.89 Other specified diseases and conditions complicating pregnancy, childbirth and the puerperium (principal); R50.9 Fever, unspecified; O99.355 Diseases of the nervous system complicating the puerperium; G43.909 Migraine, unspecified, not intractable, without status migrainosus; O99.345 Other mental disorders complicating the puerperium; F41.9 Anxiety disorder, unspecified; Z87.448 Personal history of other diseases of urinary system; Z90.710 Acquired absence of both cervix and uterus; Z87.59 Personal history of other complications of pregnancy, childbirth and the puerperium; Z88.5 Allergy status to narcotic agent; Z88.6 Allergy status to analgesic agent
CPT/HCPCS: 36415; 80053; 81000; 83605; 85025; 87040; 87804; 96360

== ENCOUNTER 2017-10-06 15:46 | Emergency (ER) | payer MEDICAID ==
[~2017-10-06] VITALS: Ht 162.6 cm; Wt 47.2 kg
[~2017-10-06 15:46] MED LIST changes: +NAPR-915 PO; -NAPR500T4 PO
--- OUTSIDE RECORDS SUMMARY | 2017-10-06 15:51 | XMS REPORT | Encounter Summary ---
Author Author [facility] Organization [facility] Address Unknown Phone Unavailable Care Team Providers Care Director Of Services Name Role Phone Self, Referral PCP Unavailable Reason for Visit * Reason Comments Breast Problem x 2 days, right breast, tender, hard to sleep, Encounter Details Date Type Department Care Team Description 09/19/2017 Office Visit [facility] Jyotsna Laird APRN Mastitis, right, acute [id number] (Primary Dx); [address] [place] [address] [place] [address] [phone] Social History Tobacco Use Types Packs/Day Years Used Date Never Smoker Smokeless Tobacco: Never Used Sex Assigned at Date Recorded Not on file as of this encounter Last Filed Vital Signs Vital Sign Reading Time Taken Blood Pressure 109/49 09/19/2017 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 Pulse 78 09/19/2017 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 Temperature 36.7 C (98 F) 09/19/2017 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 Respiratory Rate 16 09/19/2017 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 Oxygen Saturation 100% 09/19/2017 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 Inhaled Oxygen - - Concentration Weight 48.5 kg (107 lb) 09/19/2017 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 Height 162.6 cm (5' 4") 09/19/2017 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 Body Mass Index 18.37 09/19/2017 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 in this encounter Instructions * Patient Instructions - Jyotsna Laird APRN - 09/19/2017 8:30 PM DENTAL ASSISTING INSTRUCTOR Mastitis Bactrim, take as directed. Discard breast milk during this time. Rest as much as possible. Tylenol or ibuprofen for pain or fevers. Frequent breast emptying- 8-12 times per day- pump. Engorgement worsens problem. Drink plenty of water. Alternate hot and cold packs. If not able to get in and symptoms are not improving within 2 days, especially if fever continues, need to go to ER for further evaluation. in this encounter Progress Notes * Jyotsna LaridMATTI - 09/19/2017 8:30 PM DENTAL ASSISTING INSTRUCTOR Formatting of this note may be different from the original. Date of Service: 09/19/2017 Mila Delacruz is a 32 y.o. female. : 1985 Subjective: Chief Complaint Patient presents with Breast Problem x 2 days, right breast, tender, hard to sleep, R breast tenderness and redness. Patient is from [place]. Son in NICU at [facility], 2 months. Staying at [facility] while son is in NICU. . History of Present Illness R breast pain x 2 days. Pain 5/10. Pain is worsening. Aching pain/tenderness to touch. Positive for erythema and swelling. Negative for fever, chills, shortness of breath, cough or body aches. Ibuprofen with minimal improvement of pain. No alleviating or aggravating factors. Review of Systems Constitutional: Negative for chills and fever. Respiratory: Negative for cough and shortness of breath. Gastrointestinal: Negative for abdominal pain, diarrhea, nausea and vomiting. Musculoskeletal: Negative for myalgias. Skin: Positive for color change. Neurological: Negative for headaches. Objective: trimethoprim/sulfamethoxazole (BACTRIM DS) 160/800 mg tablet Take 1 tablet by mouth twice daily for 10 days. Vitals: 09/19/172 BP: 109/49 Pulse: 78 Resp: 16 Temp: 36.7 C (98 F) TempSrc: Oral SpO2: 100% Weight: 48.5 kg (107 lb) Height: 162.6 cm (64") Body mass index is 18.37 kg/m. Physical Exam Constitutional: She is oriented to person, place, and time. She appears well- developed. No distress. HENT: Head: Normocephalic and atraumatic. Eyes: Pupils are equal, round, and reactive to light. Neck: Normal range of motion. Neck supple. Cardiovascular: Normal rate and regular rhythm. Pulmonary/Chest: Effort normal and breath sounds normal. Musculoskeletal: Normal range of motion. Neurological: She is alert and oriented to person, place, and time. Skin: Skin is warm and dry. There is erythema. R breast erythema and swelling. TTP. Psychiatric: She has a normal mood and affect. Nursing note and vitals reviewed. Assessment and Plan: Mila Delacruz was seen today for breast problem. Diagnoses and all orders for this visit: Mastitis, right, acute - trimethoprim/sulfamethoxazole (BACTRIM DS) 160/800 mg tablet; Take 1 tablet by mouth twice daily for 10 days. Breast pain, right Patient Instructions Mastitis Bactrim, take as directed. Discard breast milk during this time. Rest as much as possible. Tylenol or ibuprofen for pain or fevers. Frequent breast emptying- 8-12 times per day- pump. Engorgement worsens problem. Drink plenty of water. Alternate hot and cold packs. If not able to get in and symptoms are not improving within 2 days, especially if fever continues, need to go to ER for further evaluation. in this encounter Plan of Treatment Not on fileas of this encounter Visit Diagnoses Diagnosis Mastitis, right, acute - Primary Inflammatory disease of breast Breast pain, right Mastodynia
--- OUTSIDE RECORDS SUMMARY | 2017-10-06 15:51 | XMS REPORT | Clinical Summary ---
Author Author [facility] Organization [facility] Address Unknown Phone Unavailable Care Team Providers Care Weight Loss Sales Consultant Name Role Phone Self, Referral PCP Unavailable Source Comments Some departments are not documenting in the electronic medical record. If you do not see the information that you expected, contact Release of Information in the Health Information Management department at [phone] for further assistance in locating additional records.[facility] Allergies Active Allergy Reactions Severity Noted Date Comments Cephalexin HIVES, RASH Medium 09/19/2017 Tramadol NAUSEA AND VOMITING Medium 09/19/2017 Current Medications Prescription Sig. Disp. Refills Start End Date Status Date trimethoprim/sulfamethoxa Take 1 tablet by mouth 20 tablet 0 09/20/19 09/30/19 zole (BACTRIM DS) 160/800 twice daily for 10 days. 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 Pulse 78 09/19/2017 8:32 PM SHOT POLISHER Temperature 36.7 C (98 F) 09/19/2017 8:32 PM SHOT POLISHER Respiratory Rate 16 09/19/2017 8:32 PM SHOT POLISHER Oxygen Saturation 100% 09/19/2017 8:32 PM SHOT POLISHER Inhaled Oxygen - - Concentration Weight 48.5 kg (107 lb) 09/19/2017 8:32 PM SHOT POLISHER Height 162.6 cm (5' 4") 09/19/2017 8:32 PM SHOT POLISHER Body Mass Index 18.37 09/19/2017 8:32 PM SHOT POLISHER Plan of Treatment Health Maintenance Due Date Last Done Comments PHYSICAL (COMPREHENSIVE) 1993 EXAM PERTUSSIS VACCINE 1997 HIV SCREENING 2001 TETANUS VACCINE 2003 CERVICAL CANCER SCREENING 2016 INFLUENZA VACCINE 04/14/2018 Results Not on filefrom Last 3 Months
[2017-10-06] MEDS ORDERED: KETOROLAC 30 MG/ML VIAL IVP STA (17:27)
[2017-10-06] MEDS ORDERED: LACTATED RINGERS 1,000 ML IV ONE (17:27)
[2017-10-06] MEDS ORDERED: NAFCILLIN INJECTION 2,000 MG in NS (IVPB) 100 ML IV ONE (17:30)
[2017-10-06] MEDS ORDERED: NAFCILLIN ONE (18:22)
[2017-10-06] MEDS ORDERED: NS (IVPB) 100 ML ONE (18:23)
[2017-10-06 18:36] LABS: BASOPHILS % (AUTO) 0 % (0-10); EOSINOPHILS % (AUTO) 1 % (0-10); HEMATOCRIT 36 % (35-52); HEMOGLOBIN 12.1 G/DL (11.5-16.0); LYMPHOCYTES # (AUTO) 1.6 X 10^3 (1.0-4.0); LYMPHOCYTES % (AUTO) 18 % (12-44); MEAN CORPUSCULAR HEMOGLOBIN 33 PG (25-34); MEAN CORPUSCULAR HGB CONC 34 G/DL (32-36); MEAN CORPUSCULAR VOLUME 97 FL (80-99); MEAN PLATELET VOLUME 9.7 FL (7.4-10.4); MONOCYTES # (AUTO) 0.5 X 10^3 (0.0-1.0); MONOCYTES % (AUTO) 5 % (0-12); NEUTROPHILS # (AUTO) 6.8 X 10^3 (1.8-7.8); NEUTROPHILS % (AUTO) 76 % (42-75); PLATELET COUNT 281 10^3/uL (130-400); RED BLOOD COUNT 3.71 10^6/uL (4.35-5.85); RED CELL DISTRIBUTION WIDTH 15.2 % (10.0-14.5); WHITE BLOOD COUNT 8.9 10^3/uL (4.3-11.0)
[2017-10-06 18:54] LABS: ALANINE AMINOTRANSFERASE 9 U/L (0-55); ALBUMIN 4.7 GM/DL (3.2-4.5); ALKALINE PHOSPHATASE 95 U/L (40-136); BUN/CREATININE RATIO 21; CALCIUM 9.6 MG/DL (8.5-10.1); CARBON DIOXIDE 25 MMOL/L (21-32); CHLORIDE 103 MMOL/L (98-107); CREATININE SERUM 0.67 MG/DL (0.60-1.30); GFR ESTIMATED > 60; GLUCOSE 80 MG/DL (70-105); POTASSIUM 3.9 MMOL/L (3.6-5.0); SODIUM 138 MMOL/L (135-145); TOTAL PROTEIN 7.7 GM/DL (6.4-8.2)
[2017-10-06] MEDS ORDERED: ACHD5005 PO (19:09)
[2017-10-06] MEDS ORDERED: DICL500C PO (19:09)
--- NOTE | 2017-10-06 19:09 | ED Integumentary General ---
General Chief Complaint: Skin/Wound Problems Stated Complaint: ABCESS ON L BREAST PAIN Nursing Triage Note: PT STATES HAS L BREAST ABCESS LANCED AT [facility] Source: patient History of Present Illness Date Seen by Provider: Oct 06, 2017 Time Seen by Provider: 17:15 Initial Comments PT ARRIVES VIA POV C/O LEFT BREAST PAIN, REDNESS AND SWELLING FOR 2 DAYS. NO NIPPLE DISCHARGE PT DELIVERED 2 MONTHS AGO--32 WEEKS GESTATION WITH EMERGENCY AND HYSTERECTOMY FOR COMPLETE PLACENTA PREVIA AND PLACENTAL ABRUPTION. CHILD JUST GOT HOME FROM HOSPITAL 2 DAYS AGO. PT HAS BEEN BREAST FEEDING, AND SUPPLEMENTING WITH FORMULA PT HAS NOT BREASTFED OR PUMPED FROM LEFT BREAST FOR 2 DAYS, SINCE SYMPTOMS BEGAN HAD SUBJECTIVE FEVER YESTERDAY BUT NOT TODAY PT HAS HAD 1 IBUPROFEN 200 MG TODAY AT 1300, OTHERWISE HAS NOT TAKEN ANYTHING ELSE FOR PAIN PT HAS BEEN ON CLINDAMYCIN FOR THE LAST 3 DAYS FOR DENTAL INFECTION " NEED A COUPLE OF ROOT CANALS", PER PT PT WAS SEEN AT [facility] THIS MORNING FOR THIS PROBLEM, AND AREA WAS INCISED, BUT NOT PACKED OR DRAIN PLACED PT STATES THERE WAS A LOT OF WHITE DRAINAGE THAT CAME OUT WHEN IT WAS INCISED, BUT HAS NOT HAD ANY DRAINAGE SINCE. PT WAS NOT GIVEN ANY RX FOR ANTIBIOTICS OR PAIN MEDICATIONS PT STATES SHE DOES NOT HAVE A FOLLOW UP APPOINTMENT PT STATES SHE JUST FINISHED LABETALOL--WAS PRESCRIBED FOR PVC'S PT IS NOT TAKING VITAMINS PT IS HERE BECAUSE OF CONTINUED PAIN PCP: DR. NELSON--HAS NOT SEEN HER SINCE DELIVERY AND NO FOLLOW UP APPOINTMENT HAS BEEN MADE Allergies and Home Medications Allergies Coded Allergies: cephalexin (Verified Allergy, Severe, RASH, Pt has received Ampicilin in the past, 08/12/17) codeine (Verified Allergy, Mild, HIVES, FLUSHING, BURNING FEELING, 08/13/17 ) Patient has received Morphine, Hydromorphone and Lortab on previous visits without issue tramadol (Verified Adverse Reaction, Unknown, VOMITING, 07/28/16) Home Medications Dicloxacillin Sodium 500 Mg Capsule, 500 MG PO QID Prescribed by: TANNER CROSS on 10/06/17 1909 Docusate Sodium 100 Mg Capsule, 100 MG PO BID Prescribed by: ISHA GARCIA on 08/14/17 1039 Ferrous Sulfate 325 Mg Tablet, 325 MG PO BID WITH MEALS Prescribed by: ISHA GARCIA on 08/14/17 1039 Hydrocodone Bit/Acetaminophen 1 Tab Tab, 1 EACH PO Q4H Prescribed by: TANNER CROSS on 10/06/17 1909 Ibuprofen 600 Mg Tablet, 600 MG PO Q6H Prescribed by: ISHA GARCIA on 08/14/17 103 Labetalol HCl 200 Mg Tablet, 200 MG PO BID Prescribed by: ISHA GARCIA on 08/14/17 1039 Oxycodone HCl/Acetaminophen 1 Each Tablet, 1 TAB PO Q6H PRN for PAIN-MODERATE Prescribed by: ISHA GARCIA on 08/14/17 1039 Vit No.124/Iron/FA 1 Each Tablet, 1 EACH PO DAILY, (Reported) Simethicone 80 Mg Tab.chew, 80 MG PO Q2HR PRN for gas Prescribed by: ISHA GARCIA on 08/14/17 103 Patient Home Medication List Home Medication List Reviewed: Yes Constitutional: see HPI Respiratory: no symptoms reported Cardiovascular: no symptoms reported Gastrointestinal: no symptoms reported Musculoskeletal: no symptoms reported Skin: see HPI Psychiatric/Neurological: No Symptoms Reported Past Ywkebes-Wxzmbo-Vorbvj Hx Patient Social History Alcohol Use: Denies Use Recreational Drug Use: No Smoking Status: Never a Smoker 2nd Hand Smoke Exposure: No Recent Foreign Travel: No Contact w/Someone Who Travel: No Recent Infectious Disease Expo: No Recent Hopitalizations: No Physical Abuse: No Sexual Abuse: No Immunizations Up To Date Tetanus Booster (TDap): Unknown PED Vaccines UTD: Yes Date of Influenza Vaccine: Apr 19, 2017 Seasonal Allergies Seasonal Allergies: No Surgeries History of Surgeries: Yes (WISDOM TEETH REMOVED; EMERGENT WITH SUBSEQUENT HYSTERECTOMY ( OVARIES INTACT) FOR COMPLETE PLACENTA PREVIA AND PLACENTAL ABRUPTION) Surgeries: Section, Gallbladder, Hysterectomy Respiratory History of Respiratory Disorde: No Cardiovascular History of Cardiac Disorders: No Neurological History of Neurological Disord: Yes Neurological Disorders: Headaches /Migraines 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 System : No Hx : 5 Hx Para: 4 Hx Total # of Abortions (Spona: 1 Hx 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 Disorders: No Sexually Transmitted Disease: No HIV/AIDS: No Female 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 Disorders: 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 Genitourinary History of Genitourinary Disor: No Gastrointestinal History of Gastrointestinal Di: No Musculoskeletal History of Musculoskeletal Dis: Yes Musculoskeletal Disorders: Arthritis, Chronic Back Pain Endocrine History of Endocrine Disorders: No HEENT History of HEENT Disorders: No Cancer History of Cancer: No Psychosocial History of Psychiatric Problem: Yes Behavioral Health Disorders: Anxiety Suicide Risk Score: 0 Integumentary History of Skin or Integumenta: No Skin/Integumentary Disorders: Recent Skin Changes Blood Transfusions History of Blood Disorders: No Adverse Reaction to a Blood Tr: No Family Medical History Significant Family History: No Pertinent Family Hx Family Medial History: Arthritis 19 FATHER Hypertension 19 FATHER Physical Exam Vital Signs Vital Signs - First Documented 10/06/17 16:30 Temp 98.4 Pulse 125 Resp 18 B/P (MAP) 113/76 (88) Pulse Ox 96 Capillary Refill : Less Than 3 Seconds General Appearance: WD/WN, no apparent distress, thin Cardiovascular: regular rate, rhythm, no murmur Respiratory: normal breath sounds Extremities: normal inspection, no pedal edema Neurologic/Psychiatric: can pusher II-XII nml as tested, no motor/sensory deficits, alert Skin: normal color, warm/dry, other (MEDIAL HALF OF LEFT BREAST WITH SEVERE TENDERNESS, MODERATE ERYTHEMA, MODERATE SWELLING AND IS VERY FIRM TO TOUCH--NO AREAS OF FLUCTUANCE. HAS 1/2 CM PUNCTURE SITE TO MEDIAL ASPECT OF LEFT NIPPLE, WITH NO DRAINAGE AND ONLY SCANT AMOUNT ( LESS THAN 1 CM ) AREA OF DRIED BLOOD ON GAUZE. NO FLUCTUANCE. NO STREAKS. UNABLE TO EXPRESS ANY PURULENT MATERIAL FROM SITE, ALTHOUGH IS LIMITED BY PT DISCOMFORT. ) Progress/Results/Core Measures Results/Orders Lab Results Laboratory Tests Test 10/06/17 18:10 Range/Units White Blood Count 8.9 4.3-11.0 10^3/uL Red Blood Count 3.71 L 4.35-5.85 10^6/uL Hemoglobin 12.1 11.5-16.0 G/DL Hematocrit 36 35-52 % Mean Corpuscular Volume 97 80-99 FL Mean Corpuscular Hemoglobin 33 25-34 PG Mean Corpuscular Hemoglobin Concent 34 32-36 G/DL Red Cell Distribution Width 15.2 H 10.0-14.5 % Platelet Count 281 130-400 10^3/uL Mean Platelet Volume 9.7 7.4-10.4 FL Neutrophils (%) (Auto) 76 H 42-75 % Lymphocytes (%) (Auto) 18 12-44 % Monocytes (%) (Auto) 5 0-12 % Eosinophils (%) (Auto) 1 0-10 % Basophils (%) (Auto) 0 0-10 % Neutrophils # (Auto) 6.8 1.8-7.8 X 10^3 Lymphocytes # (Auto) 1.6 1.0-4.0 X 10^3 Monocytes # (Auto) 0.5 0.0-1.0 X 10^3 Eosinophils # (Auto) 0.0 0.0-0.3 10^3/uL Basophils # (Auto) 0.0 0.0-0.1 10^3/uL Sodium Level 138 135-145 MMOL/L Potassium Level 3.9 3.6-5.0 MMOL/L Chloride Level 103 98-107 MMOL/L Carbon Dioxide Level 25 21-32 MMOL/L Anion Gap 10 5-14 MMOL/L Blood Urea Nitrogen 14 7-18 MG/DL Creatinine 0.67 0.60-1.30 MG/DL Estimat Glomerular Filtration Rate > 60 BUN/Creatinine Ratio 21 Glucose Level 80 70-105 MG/DL Lactic Acid Level 0.63 0.50-2.00 MMOL/L Calcium Level 9.6 8.5-10.1 MG/DL Total Bilirubin 1.0 0.1-1.0 MG/DL Aspartate Amino Transf (AST/SGOT) 15 5-34 U/L Alanine Aminotransferase (ALT/SGPT) 9 0-55 U/L Alkaline Phosphatase 95 40-136 U/L Total Protein 7.7 6.4-8.2 GM/DL Albumin 4.7 H 3.2-4.5 GM/DL My Orders Orders - TANNER CROSS DO Saline Lock/Iv-Start (10/06/17 17:27) Cbc With Automated Diff (10/06/17 17:27) Comprehensive Metabolic Panel (10/06/17 17:27) Lactic Acid Analyzer (10/06/17 17:27) Blood Culture (10/06/17 17:27) Wound Culture (10/06/17 17:27) Saline Lock/Iv-Start (10/06/17 17:27) Lactated Ringers (Lr 1000 Ml Iv Solution (10/06/17 17:27) Ketorolac Injection (Toradol Injection) (10/06/17 17:27) Nafcillin Injection (Unipen Injection) (10/06/17 17:30) Nafcillin Injection (Unipen Injection) (10/06/17 18:22) Ns (Ivpb) (Sodium Chloride 0.9% Ivpb Bag (10/06/17 18:23) Rx-Hydrocodone/Apap 5-325 Mg (Rx-Vicodin (10/06/17 19:26) Rx-Hydrocodone/Apap 5-325 Mg (Rx-Vicodin (10/06/17 19:45) Medications Given in ED Current Medications Medications Dose Ordered Sig/Greg Route Start Time Stop Time Status Last Admin Dose Admin Acetaminophen/ Hydrocodone Bitart 1 ea Q4H PRN PO 10/06/17 19:45 10/06/17 20:16 DC 10/06/17 19:30 1 EA Vital Signs/I&O Vital Sign - Last 12Hours 10/06/17 10/06/17 16:30 19:34 Temp 98.4 98.4 Pulse 125 125 Resp 18 18 B/P (MAP) 113/76 (88) 113/76 (88) Pulse Ox 96 96 Intake and Output 10/07/17 00:00 Intake Total 1100 ml Balance 1100 ml Blood Pressure Mean: 88 Departure Communication (Admissions) Progress Notes 1258--SPOKE WITH DR. HUSSEIN, SHE IS AWARE OF PT. SHE ADVISES TO FOLLOW UP WITH DR. NELSON IN 1-2 DAYS, AND GIVE RX FOR NORCO. Impression Impression: Primary Impression: Acute mastitis of left breast Disposition: 01 HOME, SELF-CARE Condition: Stable Departure-Patient Inst. Referrals: CELE NELSON MD (PCP/Family) Primary Care Physician Patient Instructions: Common Problems, Mastitis (DC) Add. Discharge Instructions: MOIST HEAT TO BREAST AT 20 MINUTE INTERVALS PUMP LEFT BREAST EVERY 2 HOURS, AND DUMP MILK MAY CONTINUE TO BREAST FEED ON THE RIGHT FOLLOW UP WITH DR. NELSON IN 1-2 DAYS FOR FURTHER CARE--CALL IN AM FOR APPOINTMENT RETURN TO ER IF WORSE All discharge instructions reviewed with patient and/or family. Voiced understanding. Scripts Hydrocodone Bit/Acetaminophen (Hydrocodone/Acetaminophen 5/325mg Tablet) 1 Tab Tab 1 EACH PO Q4H, #20 TAB Prov: TANNER CROSS DO 10/06/17 Dicloxacillin Sodium (Dicloxacillin Sodium) 500 Mg Capsule 500 MG PO QID, #40 CAP Prov: AMERICATANNER Chou DO 10/06/17 TANNER CROSS DO Oct 06, 2017 19:09
[2017-10-06] MEDS ORDERED: RX-HYDROCODONE/APAP 5/325 MG #4 TAB PK PO ONE (19:26)
[2017-10-06 19:34] VITALS: BP 113/76
[2017-10-06] MEDS ORDERED: RX-HYDROCODONE/APAP 5/325 MG #4 TAB PK PO PRN (19:45)
== END 2017-10-06 19:34 | disposition home or self-care (01) ==
LOC: EDUNIT# 15:46 → ER 15:48
DX: N61.0 Mastitis without abscess (principal); G43.909 Migraine, unspecified, not intractable, without status migrainosus; F41.9 Anxiety disorder, unspecified; Z87.448 Personal history of other diseases of urinary system; Z87.59 Personal history of other complications of pregnancy, childbirth and the puerperium; Z90.710 Acquired absence of both cervix and uterus; Z88.1 Allergy status to other antibiotic agents; Z88.5 Allergy status to narcotic agent; Z88.6 Allergy status to analgesic agent
CPT/HCPCS: 36415; 80053; 83605; 85025; 87040; 87070; 87205; 96365; 96375

== ENCOUNTER 2017-10-25 17:32 | Emergency (ER) | payer MEDICAID ==
[~2017-10-25] VITALS: Ht 162.6 cm; Wt 48.5 kg
[~2017-10-25 17:32] MED LIST changes: +DICL500C PO; -LABE200T3 PO; +LABE200T7 PO
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
[2017-10-25] MEDS ORDERED: HYDR-757 PO ×2 (18:13→18:31)
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
[2017-10-25] MEDS ORDERED: HYDROcodone/APAP 5 MG/325 MG (LORTAB) TAB PO ONE (19:00)
[2017-10-25 19:10] VITALS: BP 112/76
--- OUTSIDE RECORDS SUMMARY | 2017-10-27 08:33 | XMS REPORT ---
Author Author RANDAL HUSSEIN [facility] Address [address] [place] [address] Care Team Providers Care Supervisor Electron Tube Processing Name Role Phone RANDAL HUSSEIN Unavailable PROBLEMS Type Condition ICD9-CM Code HNY75-WY Code Onset Dates Condition Status SNOMED Code Problem Placenta previa in second trimester O44.02 Active 23670633 Problem History of anxiety Z86.59 Active 523699218 Problem Menstrual migraine without status migrainosus, not intractable G43.829 Active 15880088 Problem Difficulty of mother performing R63.3 Active 651451831 Problem Abnormal quad screen O28.0 Active 359424374 Problem History of delivery, currently O09.219 Active 55019262 Problem Insomnia, unspecified type G47.00 Active 308129650 Problem care, subsequent in second trimester Z34.82 Active 809994641 Problem Rheumatoid arthritis with positive rheumatoid factor, involving unspecified site M05.9 Active 005338266 ALLERGIES Substance Reaction Event Type Date Status Tylenol/Codeine #3 Unknown Drug Allergy Jan, Active Tramadol HCl vomiting Drug Allergy Jan, Active ENCOUNTERS Encounter Location Date Diagnosis [place] [id number] [facility] [id number], [place] [address] November, [facility] [address] [facility] [id number], [place] [address] Sep, Mastitis N61.0 and MRSA (methicillin resistant staph aureus ) culture positive Z22.322 [facility] [address] [facility] [id number], [place] [address] Sep, [facility] [address] [facility] [id number], [place] [address] 6[address] Sep, Difficulty of mother performing R63.3 [facility] [address] [facility] [id number] [place] [address] 64245- 6542 Sep, Acute mastitis of left breast N61.0 [facility] [address] [place] [id number] [place] [address] 17484 -5044 Sep, Abscess L02.91 [facility] [address] [place] [id number] [place] [address] 47077- 7867 Sep, [place] [address] [address] Jun, [place] [address] [place] [id number] [place] [address] 61633- 8453 Jun, care, subsequent in second trimester Z34.82 ; Placenta previa in second trimester O44.02 ; Abnormal quad screen O28.0 ; History of delivery, currently O09.219 and 24 weeks gestation of Z3A.24 [place] [address] [place] [id number] [place] [address] 29220- 7866 May, Dental examination Z01.20 [place] [address] [place] [id number] [place] [address] 37813- 1442 May, History of delivery, currently O09.219 [place] [address] [place] [id number] [place] [address] 00752- 2926 May, [place] [address] [place] [id number] [place] [address] 04681- 6483 May, 20 weeks gestation of Z3A.20 ; care, subsequent in second trimester Z34.82 ; History of delivery, currently O09.219 and Abnormal quad screen O28.0 [place] [address] [place] [id number] [place] [address] 80399- 6258 Apr, Elevated blood sugar level R73.9 and Glucosuria R81 [place] [id number] [place] [address] 15063- 7267 Apr, Elevated blood sugar level R73.9 and Glucosuria R81 [place] [address] [id number] [address] 2163 Apr, Elevated blood sugar level R73.9 [place] [address] [place] [id number] [place] [address] 82757- 0527 Apr, [place] [address] [place] [id number] [place] [address] 97708- 8235 Apr, 16 weeks gestation of Z3A.16 ; care, subsequent in second trimester Z34.82 ; Encounter for immunization Z23 and Glucosuria R81 [place] [address] [place] [id number] [place] [address] 85464- 9716 08 Mar, 2017 12 weeks gestation of Z3A.12 [place] [address] [place] [id number] [place] [address] 10014- 5886 Feb, [place] [address] [place] [id number] [place] [address] 87800- 6051 Feb, care, subsequent in first trimester Z34.81 and 8 weeks gestation of Z3A.08 [place] [address] [place] [id number] [place] [address] 07527- 2780 Jan, [place] [address] [place] [id number] [place] [address] 97846- 9564 Jul, Encounter for test, result unknown Z32.00 [place] [address] [place] [id number] [place] [address] 26002- 8050 Jun, control counseling Z30.9 and Insomnia, unspecified type G47.00 [place] [id number] [place] [address] 67564- 0701 Sep, Encounter for test Z32.00 [place] [address] [place] [id number] [place] [address] 47198- 1333 Jul, [place] [id number] [place] [address] 73479- 0772 Jul, Well woman exam Z01.419 ; Encounter for screening for malignant neoplasm of cervix Z12.4 ; Vaginal discharge N89.8 ; Routine screening for STI (sexually transmitted infection) Z11.3 ; Encounter for prescription for transdermal contraceptive Z30.49 ; Nausea with vomiting, unspecified R11.2 ; Menstrual migraine without status migrainosus, not intractable G43.829 and History of anxiety Z86.59 [facility] [address] [place] [id number] [place] [address] 09756- 3963 Jun, Encounter for surveillance of transdermal contraceptive Z30.49 and Sauceda F48.9 [facility] [address] [place] [id number] [place] [address] 70010- 3944 14 Oct, 2014 [facility] [address] 13683- 1515 Oct, [facility] [address] [place] [id number] [place] [address] 16696- 1717 Jul, [facility] [address] [place] [id number] [place] [address] 06438- 5427 Jul, [facility] [address] [place] [id number] [place] [address] 17847- 0945 Jul, [facility] [address] [place] [address] [id number] [place] [address] 23523- 5803 Jul, [facility] [address] [place] [address] [id number] [place] [address] 85587- 3875 Jul, [facility] [address] [place] [id number] [place] [address] 66384- 9172 Jul, [facility] [address] [place] [id number] [place] [address] 39504- 8895 Jun, [facility] [address] [place] [id number] [place] [address] 59439- 0226 Jun, [facility] [address] [id number] [place] [address] 40616- 9528 May, [facility] [address] [id number] [place] [address] 36865- 8911 May, [facility] [place] [facility] [address] [id number] [place] [address]- 9015 May, [facility] [place] [facility] [address] [id number] [place] [address]- 1004 May, [facility] [place] [facility] [address] [id number] [place] [address]- 0059 Feb, [facility] [place] [facility] [address] [id number] [place] [address]- 0863 Feb, [facility] [place] [facility] [address] [id number] [place] [address]- 2393 Feb, [facility] [place] [facility] [address] [id number] [place] [address]- 3340 Feb, [facility] [place] [facility] [address] [id number] [place] [address]- 5577 Oct, [facility] [place] [facility] [address] [id number] [place] [address]- 3219 Oct, [facility] [place] [facility] [address] [id number] [place] [address]- 1752 Sep, [facility] [place] [facility] [address] [id number] [place] [address]- 7846 Sep, [facility] [place] [facility] [address] [id number] [place] [address]- 3237 Sep, [facility] [place] [facility] [address] [id number] [place] [address]- 5887 Sep, [facility] [place] [facility] [address] [id number] [place] [address]- 3491 Aug, [facility] [place] [facility] [address] [id number] [place] [address]- 0540 Aug, [facility] [place] [facility] [address] [id number] [place] [address]- 7270 Jul, [facility] [place] [facility] [address] [id number], [place] [address]- 7952 Jul, [facility] [address] [id number] [place] [address]- 0382 Jun, [facility] [place] [facility] [address] [id number] [place] [address]- 1531 Jun, [facility] [place] [facility] [address] [id number] [place] [address]- 2228 Jun, [facility] [place] [facility] [address] [id number] [place] [address]- 7171 Jun, [facility] [place] [facility] [address] [id number] [place] [address]- 7384 Jun, [facility] [place] [facility] [address] [id number] [place] [address]- 0089 May, [facility] [place] [facility] [address] [id number] [place] [address]- 1656 May, [facility] [place] [facility] [address] [id number] [place] [address]- 3824 May, [facility] [place] [facility] [address] [id number] [place] [address]- 1837 May, [facility] [place] [facility] [address] [facility] [id number] [place] [address]- 7176 Apr, [facility] [place] [facility] [address] [id number] [place] [address]- 9493 Apr, [facility] [place] [facility] [address] [id number], [place] [address]- 3982 Apr, [facility] [place] [facility] [address] [id number], [place] [address]- 1023 Feb, [facility] [place] [facility] [address] [id number], [place] [address]- 5821 Jan, [facility] [place] [facility] [address] [id number], [place] [address]- 1014 Aug, [facility] [place] [facility] [address] [id number] [place] [address]- 8190 Aug, [facility] [address] [id number] [place] [address]- 9449 Aug, [facility] [address] [id number] [place] [address]- 9975 08 Aug, 2012 [facility] [place] [facility] [address] [id number] [place] [address]- 4229 Aug, [facility] [address] [id number] [place] [address]- 8502 Aug, [facility] [address] [id number] [place] [address]- 4920 Jul, [facility] [address] [id number] [place] [address]- 2775 Jul, [facility] [address] [id number] [place] [address]- 4833 Jul, [facility] [address] [id number] [place] [address]- 9004 Jul, [facility] [address] [id number] [place] [address]- 5325 Jul, [facility] [address] [id number] [place] [address]- 1144 Jul, [facility] [address] [id number], [place] [address]- 8767 Jul, [facility] [place] [facility] [address] [id number] [place] [address]- 8224 Jun, [facility] [place] [facility] [address] [id number] [place] [address]- 5281 Jun, [facility] [place] [facility] [address] [id number], [place] [address]- 0934 Jun, [facility] [place] [facility] [address] [id number], [place] [address]- 9728 Jun, [facility] [place] [facility] [address] [id number] [place] [address]- 7942 Jun, [facility] [place] [facility] [address] [id number] [place] [address]- 6689 Jun, [facility] [place] [facility] [address] [facility] [id number] [place] [address]- 4301 Jun, [facility] [place] [facility] [address] [id number] [place] [address]- 3584 Jun, [facility] [place] [facility] [address] [facility] [id number] [place] [address]- 8740 Jun, [facility] [place] [facility] [address] [facility] [id number] [place] [address]- 0211 Jun, [facility] [place] [facility] [address] [place] [id number], [place] [address]- 1402 May, [facility] [place] [facility] [address] [facility] [id number], [place] [address]- 1341 May, [facility] [place] [facility] [address] [facility] [id number], [place] [address]- 0242 May, [facility] [place] [facility] [address] [facility] [id number], [place] [address]- 9334 May, [facility] [place] [facility] [address] [facility] [id number], [place] [address]- 8460 May, [facility] [place] [facility] [address] [facility] [id number], [place] [address]- 0676 Apr, [facility] [place] [facility] [address] [facility] [id number], [place] [address]- 7511 Apr, [facility] [place] [facility] [address] [facility] [id number], [place] [address]- 3037 Apr, [facility] [place] [facility] [address] [facility] [id number], [place] [address]- 6834 Apr, [facility] [place] [facility] [address] [id number] [place] [address]- 5701 04 Apr, 2012 [facility] [place] [facility] [address] [id number] [place] [address]- 6296 25 Mar, 2011 [facility] [place] [facility] [address] [id number] [place] [address] 2546 20 Mar, 2011 [facility] [place] [facility] [address] [id number] [place] [address]- 2326 12 Mar, 2011 [facility] [place] [facility] [address] [id number] [place] [address] 2546 07 Mar, 2011 [facility] [place] [facility] [address] [id number] [place] [address]- 7446 06 Mar, 2011 [facility] [place] [facility] [address] [id number] [place] [address]- 8605 05 Mar, 2011 [facility] [place] [facility] [address] [id number] [place] [address]- 6415 Feb, [facility] [place] [facility] [address] [id number] [place] [address]- 9284 Feb, [facility] [place] [facility] [address] [id number] [place] [address]- 9512 Feb, [facility] [place] [facility] [address] [id number] [place] [address]- 4273 Feb, [facility] [place] [facility] [address] [id number] [place] [address]- 5816 Feb, [facility] [place] [facility] [address] [id number] [place] [address]- 4678 Jan, [facility] [place] [facility] [address] [id number] [place] [address]- 4506 Jan, [facility] [place] [facility] [address] [id number] [place] [address]- 4506 Jan, [facility] [place] [facility] [address] [id number] [place] [address]- 2297 Jan, [facility] [place] [facility] [address] [id number] [place] [address]- 0745 Jan, [facility] [place] [facility] [address] [id number] [place] [address]- 2127 Jan, [facility] [place] [facility] [address] [id number] [place] [address]- 9573 Dec, [facility] [place] [facility] [address] [id number] [place] [address]- 4233 Dec, [facility] [place] [facility] [address] [id number] [place] [address]- 9233 Dec, [facility] [place] [facility] [address] [id number] [place] [address]- 2779 Dec, [facility] [place] [facility] [address] [id number] [place] [address]- 8250 Dec, [facility] [place] [facility] [address] [id number] [place] [address]- 7082 Dec, [facility] [place] [facility] [address] [id number] [place] [address]- 1902 Dec, [facility] [place] [facility] [address] [id number] [place] [address]- 4731 November, [facility] [place] [facility] [address] [id number] [place] [address]- 7911 November, [facility] [place] [facility] [address] [id number], [place] [address]- 2611 November, [facility] [place] [facility] [address] [id number] [place] [address]- 9698 Oct, [facility] [place] [facility] [address] [id number] [place] [address]- 2988 Oct, [facility] [place] [facility] [address] [id number] [place] [address]- 6643 Oct, [facility] [place] [facility] [address] [id number] [place] [address]- 9773 22 Sep, 2011 [facility] [address] [id number] [place] [address]- 0206 13 Sep, 2011 [facility] [place] [facility] [address] [id number] [place] [address]- 5106 05 Sep, 2011 [facility] [place] [facility] [address] [id number] [place] [address]- 3280 04 Sep, 2011 [facility] [place] [facility] [address] [id number] [place] [address]- 6459 Sep, [facility] [place] [facility] [address] [id number] [place] [address]- 1302 Aug, [facility] [place] [facility] [address] [id number] [place] [address]- 2693 Aug, [facility] [place] [facility] [address] [id number] [place] [address]- 3501 Aug, [facility] [place] [facility] [address] [id number] [place] [address]- 8626 Aug, [facility] [place] [facility] [address] [id number] [place] [address]- 7181 30 Jul, 2011 [facility] [place] [facility] [address] [id number] [place] [address]- 3647 29 Jul, 2011 [facility] [place] [facility] [address] [id number] [place] [address]- 4288 Jul, [facility] [place] [facility] [address] [id number] [place] [address]- 2062 Jul, [facility] [place] [facility] [address] [id number] [place] [address]- 5159 18 Jul, 2011 [facility] [place] [facility] [address] [id number] [place] [address]- 7574 12 Jul, 2011 [facility] [place] [facility] [address] [id number] [place] [address]- 4230 Jul, [facility] [address] [id number] [place] [address]- 2764 10 Jul, 2011 [facility] [place] [facility] [address] [id number] [place] [address]- 9476 16 Jun, 2011 [facility] [place] [facility] [address] [id number] [place] [address]- 6226 13 Jun, 2011 [facility] [place] [facility] [address] [id number] [place] [address]- 5646 12 Jun, 2011 [facility] [place] [facility] [address] [id number] [place] [address]- 4766 06 Jun, 2011 [facility] [place] [facility] [address] [id number] [place] [address]- 3866 14 May, 2011 [facility] [place] [facility] [address] [id number] [place] [address]- 2176 31 Apr, 2011 [facility] [place] [facility] [address] [id number] [place] [address]- 2276 13 Mar, 2011 [facility] [place] [facility] [address] [id number] [place] [address]- 8230 16 Dec, 2010 [facility] [place] [facility] [address] [id number] [place] [address]- 7281 10 Aug, 2010 [facility] [place] [facility] [address] [id number], [place] [address]- 7986 11 Jul, 2010 [facility] [place] [facility] [address] [id number], [place] [address]- 7796 18 Sep, 2009 [facility] [place] [facility] [address] [id number] [place] [address]- 3721 12 Jul, 2009 [facility] [place] [facility] [address] [id number], [place] [address]- 2846 14 Jun, 2009 [facility] [place] [facility] [address] [id number], [place] [address]- 0006 14 Jun, 2009 [facility] [place] [facility] [address] [id number], [place] [address]- 7105 May, [facility] [address] 4266 Apr, [facility] [address], [place] [address]- 1260 Apr, [facility] [address], [place] [address]- 2827 Apr, [facility] [id number] [place] [address] 09927- 1617 Feb, [facility] [id number] [place] [address] 032[address]- 5243 Feb, [facility] [address], [place] [address]- 3167 Jan, [facility] [id number], [place] [address] November, IMMUNIZATIONS No Known Immunizations SOCIAL HISTORY Never Assessed REASON FOR VISIT OB Flowsheet History PLAN OF CARE VITAL SIGNS MEDICATIONS Unknown Medications RESULTS No Results PROCEDURES No Known procedures INSTRUCTIONS MEDICATIONS ADMINISTERED No Known Medications MEDICAL (GENERAL) HISTORY Type Description Date Medical History Arthritis Surgical History cholecystectomy Surgical History wisdom teeth extraction Surgical History hysterectomy Hospitalization History child Hospitalization History colitis
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
== END 2017-10-25 19:06 | disposition home or self-care (01) ==
LOC: EDUNIT# 17:32 → ER 17:33
DX: S92.324A Nondisplaced fracture of second metatarsal bone, right foot, initial encounter for closed fracture (principal); S92.325A Nondisplaced fracture of second metatarsal bone, left foot, initial encounter for closed fracture; G43.909 Migraine, unspecified, not intractable, without status migrainosus; F41.9 Anxiety disorder, unspecified; Z87.448 Personal history of other diseases of urinary system; Z88.5 Allergy status to narcotic agent; Z88.6 Allergy status to analgesic agent; Z88.1 Allergy status to other antibiotic agents; Z87.59 Personal history of other complications of pregnancy, childbirth and the puerperium; Z90.710 Acquired absence of both cervix and uterus; V43.52XA Car driver injured in collision with other type car in traffic accident, initial encounter
CPT/HCPCS: 73590

== ENCOUNTER 2017-12-14 20:54 | Emergency (ER) | payer MEDICAID ==
[~2017-12-14] VITALS: Ht 160 cm; Wt 49.9 kg
[~2017-12-14 20:54] MED LIST changes: +HYDR-757 PO; +LABE200T3 PO; -LABE200T7 PO
--- OUTSIDE RECORDS SUMMARY | 2017-12-14 21:02 | XMS REPORT ---
Author Author LESLIE CELE [facility] Address [address] [place] [address] Care Team Providers Care Hedis Abstractor Name Role Phone CELE NELSON Unavailable PROBLEMS Type Condition ICD9-CM Code BBS41-VP Code Onset Dates Condition Status SNOMED Code Problem Other chronic pain G89.29 Active 17605629 Problem Difficulty of mother performing R63.3 Active 732166637 Problem History of anxiety Z86.59 Active 028688618 Problem Menstrual migraine without status migrainosus, not intractable G43.829 Active 03345731 Problem Rheumatoid arthritis with positive rheumatoid factor, involving unspecified site M05.9 Active 964480623 Problem Insomnia, unspecified type G47.00 Active 791212458 ALLERGIES Substance Reaction Event Type Date Status Tylenol/Codeine #3 Unknown Drug Allergy Apr, Active Tramadol HCl vomiting Drug Allergy Apr, Active ENCOUNTERS Encounter Location Date Diagnosis [facility] [id number] [place] [address] 87723- 0169 Jan, [facility] [id number] [place] [address] 91965- 8997 Dec, [facility] [id number] [place] [address] 76532- 3568 Oct, Rheumatoid arthritis with positive rheumatoid factor, involving unspecified site M05.9 [facility] [id number] [place] [address] 96529- 5137 Oct, Rheumatoid arthritis with positive rheumatoid factor, involving unspecified site M05.9 [facility] [id number] [place] [address] 83575- 5971 Oct, Closed nondisplaced fracture of third metatarsal bone of right foot with routine healing, subsequent encounter S92.334D ; Closed nondisplaced fracture of second metatarsal bone of right foot with routine healing, subsequent encounter S92.324D ; Closed nondisplaced fracture of phalanx of left great toe with routine healing, unspecified phalanx, subsequent encounter S92.405D and Other chronic pain G89.29 [facility] [address] [id number] [address] 4[address] Oct, Closed nondisplaced fracture of third metatarsal bone of right foot with routine healing, subsequent encounter S92.334D ; Closed nondisplaced fracture of second metatarsal bone of right foot with routine healing, subsequent encounter S92.324D ; Closed nondisplaced fracture of phalanx of left great toe with routine healing, unspecified phalanx, subsequent encounter S92.405D ; Other chronic pain G89.29 and Rheumatoid arthritis with positive rheumatoid factor, involving unspecified site M05.9 [place] [address] [facility] [id number] [place] [address] 64453- 2655 Oct, [facility] [id number] [place] [address] 14832- 8025 Oct, Injury of finger of right hand, initial encounter S69.91XA and Closed displaced fracture of distal phalanx of right middle finger, initial encounter S62.632A [facility] [address] [facility] [id number], [place] [address] 86[address] Sep, Mastitis N61.0 and MRSA (methicillin resistant staph aureus ) culture positive Z22.322 [place] [id number] [place] [address] 49199- 5457 Sep, [facility] [id number] [place] [address] 73390- 0814 Sep, Difficulty of mother performing R63.3 [place] [address] [facility] [id number] [place] [address] 75189- 8810 Sep, Acute mastitis of left breast N61.0 [facility] [address] [facility] [id number], [place] [address] Sep, Abscess L02.91 [place] [address], [place] [address] 2396 Sep, [place] [id number] [place] [address] 26100- 5432 Jun, [place] [id number] [place] [address] 42428- 7794 Jun, care, subsequent in second trimester Z34.82 ; Placenta previa in second trimester O44.02 ; Abnormal quad screen O28.0 ; History of delivery, currently O09.219 and 24 weeks gestation of Z3A.24 [place] [id number] [place] [address] 20412- 0677 May, Dental examination Z01.20 [place] [id number] [place] [address] 66903- 2171 May, History of delivery, currently O09.219 [place] [id number] [place] [address] 75583- 8571 May, [place] [id number] [place] [address] 16370- 8119 May, 20 weeks gestation of Z3A.20 ; care, subsequent in second trimester Z34.82 ; History of delivery, currently O09.219 and Abnormal quad screen O28.0 [place] [id number] [place] [address] 24731- 4161 Apr, Elevated blood sugar level R73.9 and Glucosuria R81 [place] [id number] [place] [address] 89342- 0808 Apr, Elevated blood sugar level R73.9 and Glucosuria R81 [place] [id number] [place] [address] 81538- 8596 Apr, Elevated blood sugar level R73.9 [place] [id number] [place] [address] 94130- 7504 Apr, [place] [id number] [place] [address] 41001- 2473 Apr, 16 weeks gestation of Z3A.16 ; care, subsequent in second trimester Z34.82 ; Encounter for immunization Z23 and Glucosuria R81 [place] [id number] [place] [address] 42125- 1481 08 Mar, 2017 12 weeks gestation of Z3A.12 [place] [address] 01765- 4571 14 Feb, 2017 [place] [id number] [place] [address] 53745- 2757 Feb, care, subsequent in first trimester Z34.81 and 8 weeks gestation of Z3A.08 [place] [id number] [place] [address] 59995- 2515 Jan, [place] [address] 85252- 5994 Jul, Encounter for test, result unknown Z32.00 [place] [address] 07687- 8698 Jun, control counseling Z30.9 and Insomnia, unspecified type G47.00 [place] [id number] [place] [address] 28320- 0577 Sep, Encounter for test Z32.00 [place] [id number] [place] [address] 00019- 8318 Jul, [place] [id number] [place] [address] 69747- 8202 Jul, Well woman exam Z01.419 ; Encounter for screening for malignant neoplasm of cervix Z12.4 ; Vaginal discharge N89.8 ; Routine screening for STI (sexually transmitted infection) Z11.3 ; Encounter for prescription for transdermal contraceptive Z30.49 ; Nausea with vomiting, unspecified R11.2 ; Menstrual migraine without status migrainosus, not intractable G43.829 and History of anxiety Z86.59 [facility] [address], [place] [address]- 0565 Jun, Encounter for surveillance of transdermal contraceptive Z30.49 and Sauceda F48.9 [facility] [address] [address]- 3006 14 Oct, 2014 [facility] [id number] [place] [address] 35936- 5159 Oct, [facility] [id number], [place] [address]- 0400 Jul, [facility] [id number] [place] [address] 97893- 3087 Jul, [facility] [id number] [place] [address] 26437- 2290 Jul, [facility] [id number] [place] [address] 93071- 1977 Jul, [facility] [address], [place] [address]- 8254 Jul, [facility] [address], [place] [address]- 9525 Jul, [facility] [address], [place] [address]- 2578 Jun, [facility] [address], [place] [address]- 2511 Jun, [facility] [address], [place] [address]- 7055 May, [facility] [id number] 6822 May, [facility] [address], [place] [address]- 3449 May, [facility] [id number] [place] [address] 75926- 0975 May, [facility] [place] [facility] [address] [id number] [place] [address]- 6265 Feb, [facility] [place] [facility] [address] [id number] [place] [address]- 3002 Feb, [facility] [place] [facility] [address] [id number] [place] [address]- 2321 Feb, [facility] [place] [facility] [address] [id number] [place] [address]- 6625 Feb, [facility] [place] [facility] [address] [id number] [place] [address]- 3058 Oct, [facility] [place] [facility] [address] [id number] [place] [address]- 2066 Oct, [facility] [place] [facility] [address] [id number] [place] [address]- 8036 Sep, [facility] [place] [facility] [address] [id number] [place] [address]- 8584 Sep, [facility] [place] [facility] [address] [id number] [place] [address]- 5968 Sep, [facility] [place] [facility] [address] [id number] [place] [address]- 1950 Sep, [facility] [place] [facility] [address] [id number] [place] [address]- 4872 Aug, [facility] [place] [facility] [address] [id number] [place] [address]- 5646 Aug, [facility] [place] [facility] [address] [id number] [place] [address]- 8435 Jul, [facility] [place] [facility] [address] [id number] [place] [address]- 0020 Jul, [facility] [place] [facility] [address] [id number] [place] [address]- 9189 Jun, [facility] [place] [facility] [address] [id number] [place] [address]- 7446 Jun, [facility] [address] [id number] [place] [address]- 4581 Jun, [facility] [place] [facility] [address] [id number] [place] [address]- 1217 Jun, [facility] [place] [facility] [address] [id number] [place] [address]- 7128 Jun, [facility] [place] [facility] [address] [id number] [place] [address]- 8647 May, [facility] [place] [facility] [address] [id number] [place] [address]- 8945 May, [facility] [place] [facility] [address] [id number] [place] [address]- 9357 May, [facility] [place] [facility] [address] [facility] [id number] [place] [address]- 3978 May, [facility] [place] [facility] [address] [id number] [place] [address]- 5610 Apr, [facility] [place] [facility] [address] [facility] [id number] [place] 3231 Apr, [facility] [place] [facility] [address] [facility] [id number] [place] [address]- 3517 Apr, [facility] [place] [facility] [address] [facility] [id number] [place] [address]- 6551 Feb, [facility] [place] [facility] [address] [facility] [id number] [place] [address]- 2544 Jan, [facility] [place] [facility] [address] [id number] [place] [address]- 2997 Aug, [facility] [place] [facility] [address] [facility] [id number] [place] [address]- 2546 Aug, [facility] [place] [facility] [address] [facility] [id number] [place] [address]- 7784 Aug, [facility] [address] [id number] [place] [address]- 8080 08 Aug, 2012 [facility] [address] [id number] [place] [address]- 1240 07 Aug, 2012 [facility] [address] [id number] [place] [address]- 7615 04 Aug, 2012 [facility] [address] [id number] [place] [address]- 6971 Jul, [facility] [address] [id number] [place] [address]- 4547 Jul, [facility] [address] [id number] [place] [address]- 9762 Jul, [facility] [address] [id number] [place] [address]- 6069 Jul, [facility] [address] [id number], [place] [address]- 7812 Jul, [facility] [address] [id number] [place] [address]- 9592 Jul, [facility] [address] [id number], [place] [address]- 7904 Jul, [facility] [address] [id number], [place] [address]- 3666 Jun, [facility] [address] [id number], [place] [address]- 5703 Jun, [facility] [place] [facility] [address] [id number] [place] [address]- 3120 Jun, [facility] [place] [facility] [address] [id number], [place] [address]- 1129 Jun, [facility] [place] [facility] [address] [id number] [place] [address]- 9130 Jun, [facility] [address] [id number] [place] [address]- 8772 05 Jun, 2012 [facility] [place] [facility] [address] [id number] [place] [address]- 9639 Jun, [facility] [place] [facility] [address] [id number] [place] 5658 Jun, [facility] [place] [facility] [address] [facility] [id number] [place] [address]- 7311 Jun, [facility] [place] [facility] [address] [id number] [place] [address]- 3412 Jun, [facility] [place] [facility] [address] [id number] [place] [address]- 8404 May, [facility] [place] [facility] [address] [id number] [place] [address]- 6679 May, [facility] [place] [facility] [address] [facility] [id number] [place] [address]- 3435 May, [facility] [place] [facility] [address] [facility] [id number] [place] [address]- 4706 May, [facility] [place] [facility] [address] [facility] [id number] [place] [address]- 2210 May, [facility] [place] [facility] [address] [facility] [id number] [place] [address]- 4894 Apr, [facility] [place] [facility] [address] [facility] [id number] [place] [address]- 3020 Apr, [facility] [place] [facility] [address] [facility] [id number], [place] [address]- 9926 Apr, [facility] [place] [facility] [address] [id number], [place] [address]- 3286 Apr, [facility] [place] [facility] [address] [facility] [id number] 9500 Apr, [facility] [place] [facility] [address] [facility] [id number], [place] [address]- 2224 Mar, [facility] [place] [facility] [address] [id number] [place] [address]- 0574 20 Mar, 2011 [facility] [place] [facility] [address] [id number] [place] [address]- 4376 12 Mar, 2011 [facility] [place] [facility] [address] [id number] [place] [address] 2546 07 Mar, 2011 [facility] [place] [facility] [address] [id number] [place] [address]- 0646 06 Mar, 2011 [facility] [place] [facility] [address] [id number] [place] [address]- 8838 05 Mar, 2011 [facility] [place] [facility] [address] [id number] [place] [address]- 6341 Feb, [facility] [place] [facility] [address] [id number] [place] [address]- 6845 Feb, [facility] [place] [facility] [address] [id number] [place] [address]- 6312 Feb, [facility] [place] [facility] [address] [id number] [place] [address]- 0003 Feb, [facility] [place] [facility] [address] [id number] [place] [address]- 9686 Feb, [facility] [place] [facility] [address] [id number] [place] [address]- 5013 Jan, [facility] [place] [facility] [address] [id number] [place] [address]- 4873 Jan, [facility] [place] [facility] [address] [id number] [place] [address]- 0332 Jan, [facility] [place] [facility] [address] [id number] [place] [address]- 1494 Jan, [facility] [place] [facility] [address] [id number] [place] [address]- 3920 Jan, [facility] [place] [facility] [address] [id number] [place] [address]- 7795 05 Jan, 2012 [facility] [place] [facility] [address] [id number] [place] [address]- 2733 Dec, [facility] [place] [facility] [address] [id number] [place] [address]- 9964 Dec, [facility] [place] [facility] [address] [id number] [place] [address]- 7273 Dec, [facility] [place] [facility] [address] [id number] [place] [address]- 6980 Dec, [facility] [place] [facility] [address] [id number] [place] [address]- 6994 Dec, [facility] [place] [facility] [address] [id number] [place] [address]- 4911 Dec, [facility] [place] [facility] [address] [id number] [place] [address]- 3408 Dec, [facility] [place] [facility] [address] [id number] [place] [address]- 0891 November, [facility] [place] [facility] [address] [id number] [place] [address]- 8416 November, [facility] [place] [facility] [address] [id number] [place] [address]- 6017 November, [facility] [place] [facility] [address] [id number] [place] [address]- 3820 Oct, [facility] [place] [facility] [address] [id number] [place] [address]- 3179 Oct, [facility] [place] [facility] [address] [id number] [place] [address]- 9662 Oct, [facility] [place] [facility] [address] [id number] [place] [address]- 1362 Sep, [facility] [place] [facility] [address] [id number] [place] [address]- 6461 Sep, [facility] [place] [facility] [address] [id number] [place] [address]- 5870 05 Sep, 2011 [facility] [address] [id number] [place] [address]- 6126 Sep, [facility] [place] [facility] [address] [id number] [place] [address] 2546 Sep, [facility] [place] [facility] [address] [id number] [place] [address]- 8456 Aug, [facility] [place] [facility] [address] [id number] [place] [address]- 1066 Aug, [facility] [address] [id number] [place] [address]- 7016 Aug, [facility] [place] [facility] [address] [id number] [place] [address]- 9436 Aug, [facility] [place] [facility] [address] [id number] [place] [address]- 2548 30 Jul, 2011 [facility] [address] [id number] [place] [address]- 8316 Jul, [facility] [place] [facility] [address] [id number] [place] [address]- 4220 Jul, [facility] [place] [facility] [address] [id number] [place] [address]- 6858 Jul, [facility] [place] [facility] [address] [id number] [place] [address]- 7977 Jul, [facility] [place] [facility] [address] [id number] [place] [address]- 9365 Jul, [facility] [place] [facility] [address] [id number] [place] [address]- 8291 Jul, [facility] [place] [facility] [address] [id number] [place] [address] 2546 Jul, [facility] [place] [facility] [address] [id number] [place] [address]- 0687 Jun, [facility] [place] [facility] [address] [id number] [place] [address]- 3275 13 Jun, 2011 [facility] [place] [facility] [address] [id number] [place] [address]- 5405 12 Jun, 2011 [facility] [place] [facility] [address] [id number] [place] [address]- 3803 06 Jun, 2011 [facility] [place] [facility] [address] [id number] [place] [address]- 3169 14 May, 2011 [facility] [place] [facility] [address] [id number] [place] [address]- 0142 31 Apr, 2011 [facility] [place] [facility] [address] [id number] [place] [address]- 7195 13 Mar, 2011 [facility] [place] [facility] [address] [id number] [place] [address]- 9469 16 Dec, 2010 [facility] [place] [facility] [address] [id number], [place] [address]- 6426 10 Aug, 2010 [facility] [place] [facility] [address] [id number] [place] [address]- 2079 11 Jul, 2010 [facility] [place] [facility] [address] [id number], [place] [address]- 3371 18 Sep, 2009 [facility] [place] [facility] [address] [id number], [place] [address]- 5604 12 Jul, 2009 [facility] [place] [facility] [address] [id number], [place] [address]- 2729 14 Jun, 2009 [facility] [place] [facility] [address] [id number] [place] [address]- 9377 14 Jun, 2009 [facility] [place] [facility] [address] [id number], [place] [address]- 1099 02 May, 2009 [facility] [place] [facility] [address] [id number] [place] [address]- 6018 15 Apr, 2009 [facility] [place] [facility] [address] [facility] [id number], [place] [address]- 0616 Apr, [facility] [address] [id number], [place] [address] Apr, [facility] [address] [id number], [place] [address] Feb, [facility] [id number], [place] [address] Feb, [facility] [id number], [place] [address] Jan, [facility] [id number] [place] [address] November, IMMUNIZATIONS Vaccine Route Administration Date Status FLUARIX QUAD (3 AND UP) 2016 IM Intramuscular Apr 19, 2017 Administered SOCIAL HISTORY Never Assessed REASON FOR VISIT OB f/u-4 wk--tcuppettRN PLAN OF CARE Activity Details Follow Up 4 Weeks Reason: VITAL SIGNS Height 64 in 2017-04-19 Weight 110.7 lbs 2017-04-19 Temperature 97.8 degrees Fahrenheit 2017-04-19 Heart Rate 88 bpm 2017-04-19 Respiratory Rate 20 2017-04-19 BMI 19.002 kg/m2 2017-04-19 Blood pressure systolic 100 mmHg 2017-04-19 Blood pressure diastolic 58 mmHg 2017-04-19 MEDICATIONS Medication Instructions Dosage Frequency Start Date End Date Duration Status One Daily Active RESULTS Name Result Date Reference Range GLUCOSE FINGERSTICK (IN HOUSE) 2017-04-19 GLU FINGERSTICK 131 PC 3 Lot # [id number] Exp date 09/28/17 UA OB DIP (IN HOUSE) 2017-04-19 Glucose 2+ Protein negative TETRA SCREEN 2017-04-19 Results Report Test Results: *Screen Positive* Gest. Age on Collection Date 17.6 Gestat. Age Based On LMP Maternal Age At ROSMERY 31.3 Race Weight 110 Insulin Dep Diabetes No Multiple Gestation AFP Value 38.9 AFP MoM 0.77 hCG Value 06609 hCG MoM 1.88 uE3 Value 0.43 uE3 MoM 0.32 SHREYAS Value 251.26 SHREYAS MoM 1.19 [place] 1 [place] [address] DSR (Second Trimester) 1 IN 116 DSR (By Age) 1 IN 587 T18 Risk Not increased T18 (By Age) 1:2287 Interpretation Comments: PDF . PDF Report 2017-04-19 PDF Report1 LCLS PROCEDURES Procedure Date Ordered Result Body Site SINGLE IMMUNIZATION ADMIN Apr 19, 2017 URINE-NO MICRO Apr 19, 2017 ALPHA-FETOPROTEIN, SERUM Apr 19, 2017 VENIPUNCT, ROUTINE* Apr 19, 2017 GLUCOSE BLOOD TEST Apr 19, 2017 FLUARIX QUAD (3 & UP)-GSK-2015 Apr 19, 2017 ASSAY OF ESTRIOL Apr 19, 2017 INHIBIN A Apr 19, 2017 CHORIONIC GONADOTROPIN TEST Apr 19, 2017 INSTRUCTIONS MEDICATIONS ADMINISTERED No Known Medications MEDICAL (GENERAL) HISTORY Type Description Date Medical History Arthritis Surgical History cholecystectomy Surgical History wisdom teeth extraction Surgical History hysterectomy Hospitalization History child Hospitalization History colitis
--- OUTSIDE RECORDS SUMMARY | 2017-12-14 21:02 | XMS REPORT ---
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 Name Role Phone LESLIEALBERTO REIDHANY Unavailable PROBLEMS Type Condition ICD9-CM Code DFW64-NR Code Onset Dates Condition Status SNOMED Code Problem Other chronic pain G89.29 Active 29727041 Problem Difficulty of mother performing R63.3 Active 106764940 Problem History of anxiety Z86.59 Active 984635929 Problem Menstrual migraine without status migrainosus, not intractable G43.829 Active 16328820 Problem Rheumatoid arthritis with positive rheumatoid factor, involving unspecified site M05.9 Active 479590607 Problem Insomnia, unspecified type G47.00 Active [id number] ALLERGIES No Information ENCOUNTERS Encounter Location Date Diagnosis [place] [id number] [place] [address] 20372- 7732 Jan, [place] [address] [address]- [address] Dec, [place] [address] 03603- 9612 24 Oct, 2017 Rheumatoid arthritis with positive rheumatoid factor, involving unspecified site M05.9 [place] [address] 15994- 2824 Oct, Rheumatoid arthritis with positive rheumatoid factor, involving unspecified site M05.9 [place] [address] 21493- 0082 Oct, Closed nondisplaced fracture of third metatarsal bone of right foot with routine healing, subsequent encounter S92.334D ; Closed nondisplaced fracture of second metatarsal bone of right foot with routine healing, subsequent encounter S92.324D ; Closed nondisplaced fracture of phalanx of left great toe with routine healing, unspecified phalanx, subsequent encounter S92.405D and Other chronic pain G89.29 [facility] [place] [address] [id number] [place] [address] 45591- 0252 17 Oct, 2017 Closed nondisplaced fracture of third metatarsal bone [...] positive rheumatoid factor, involving unspecified site M05.9 [place] [id number] [place] [address] 93720- 8783 Oct, [place] [id number] [place] [address] 58190- 1970 Oct, Injury of finger of right hand, initial encounter S69.91XA and Closed displaced fracture of distal phalanx of right middle finger, initial encounter S62.632A [facility] [place] [address] [id number] [place] [address] 74391- 7182 Sep, Mastitis N61.0 and MRSA (methicillin resistant staph aureus ) culture positive Z22.322 [place] [address] [facility] [id number] [place] [address] 21386- 8291 Sep, [facility] [place] [address] [facility] [id number] [place] [address] 21016- 0906 Sep, Difficulty of mother performing R63.3 [facility] [place] [address] [id number], [place] [address] 1446 Sep, Acute mastitis of left breast N61.0 [facility] [address] [id number] [address] Sep, Abscess L02.91 [facility] [place] [address] [place] [address] 68207- 1166 Sep, [place] [id number] [place] [address] 40563- 1190 Jun, [place] [id number] [place] [address] 65636- 9164 Jun, care, subsequent in second trimester Z34.82 ; Placenta previa in second trimester O44.02 ; Abnormal quad screen O28.0 ; History of delivery, currently O09.219 and 24 weeks gestation of Z3A.24 [place] [id number] [place] [address] 90036- 1172 May, Dental examination Z01.20 [place] [address] 05781- 2866 May, History of delivery, currently O09.219 [place] [id number] [place] [address] 26228- 7838 May, [place] [id number] [place] [address] 73220- 0338 May, 20 weeks gestation of Z3A.20 ; care, subsequent in second trimester Z34.82 ; History of delivery, currently O09.219 and Abnormal quad screen O28.0 [place] [id number] [place] [address] 95483- 4787 Apr, Elevated blood sugar level R73.9 and Glucosuria R81 [place] [id number] [place] [address] 13695- 1825 Apr, Elevated blood sugar level R73.9 and Glucosuria R81 [place] [id number] [place] [address] 79162- 7308 Apr, Elevated blood sugar level R73.9 [place] [id number] [place] [address] 81645- 2371 Apr, [place] [id number] [place] [address] 74153- 1512 Apr, 16 weeks gestation of Z3A.16 ; care, subsequent in second trimester Z34.82 ; Encounter for immunization Z23 and Glucosuria R81 [place] [address] 19880- 7906 08 Mar, 2017 12 weeks gestation of Z3A.12 [place] [address] 15453- 9748 14 Feb, [address] 04235- 2902 Feb, care, subsequent in first trimester Z34.81 and 8 weeks gestation of Z3A.[address] 57731- 6272 Jan, [address] 55105- 6616 Jul, Encounter for test, result unknown Z32.[address] 22966- 3328 Jun, control counseling Z30.9 and Insomnia, unspecified type G47.[address] 05097- 2224 Sep, Encounter for test Z32.00 [place] [address] 71893- 7252 Jul, [address] 94830- 4665 Jul, Well woman exam Z01.419 ; Encounter for screening for malignant neoplasm of cervix Z12.4 ; Vaginal discharge N89.8 ; Routine screening for STI (sexually transmitted infection) Z11.3 ; Encounter for prescription for transdermal contraceptive Z30.49 ; Nausea with vomiting, unspecified R11.2 ; Menstrual migraine without status migrainosus, not intractable G43.829 and History of anxiety Z86.[address] 11136- 6687 Jun, Encounter for surveillance of transdermal contraceptive Z30.49 and Sauceda F48.9 [facility] [place] [address] [address]- 9769 14 Oct, 2014 [facility] [place] [address] [id number], [place] [address]90 Oct, [facility] [place] [id number] [place] [address] 77480- 5932 Jul, [facility] [place] [address] [facility] [id number] [place] [address] 47396- 6892 Jul, [facility] [place] [id number] [place] [address] 22953- 2415 Jul, [facility] [place] [id number] [place] [address] 36569- 9662 Jul, [facility] [place] [id number] [place] [address] 19230- 6462 Jul, [facility] [place] [address] [place] [address] 97659- 0895 Jul, [facility] [place] [address] [place] [address] 69813- 6860 Jun, [facility] [place] [address] [address]- 1256 Jun, [facility] [place] [address], [place] [address]- 9520 May, [facility] [place] [id number], [place] [address]- 4591 May, [facility] [place] [id number] [place] [address] 21352- 4228 May, [facility] [place] [id number], [place] [address]- 1666 May, [facility] [place] [address] [place] [address] 90632- 5494 Feb, [facility] [place] [facility] [address] [id number] [place] [address]- 4773 Feb, [facility] [place] [facility] [address] [id number] [place] [address]- 1956 Feb, [facility] [place] [facility] [address] [id number] [place] [address]- 4379 Feb, [facility] [place] [facility] [address] [id number] [place] [address]- 8622 Oct, [facility] [place] [facility] [address] [id number] [place] [address]- 1586 Oct, [facility] [place] [facility] [address] [id number] [place] [address]- 3164 Sep, [facility] [place] [facility] [address] [id number] [place] [address]- 9819 Sep, [facility] [place] [facility] [address] [id number] [place] [address]- 6054 Sep, [facility] [place] [facility] [address] [id number] [place] [address]- 6543 Sep, [facility] [place] [facility] [address] [id number] [place] [address]- 0810 Aug, [facility] [place] [facility] [address] [id number] [place] [address]- 7890 Aug, [facility] [place] [facility] [address] [id number] [place] [address]- 2680 Jul, [facility] [place] [facility] [address] [id number] [place] [address]- 6717 Jul, [facility] [place] [facility] [address] [id number] [place] [address]- 9041 Jun, [facility] [place] [facility] [address] [id number] [place] [address]- 5758 Jun, [facility] [place] [facility] [address] [id number] [place] [address]- 5678 Jun, [facility] [address] [id number] [place] [address]- 9145 Jun, [facility] [place] [facility] [address] [id number] [place] [address] 2546 Jun, [facility] [address] [id number] [place] [address]- 4664 May, [facility] [place] [facility] [address] [id number] [place] [address]- 2577 May, [facility] [address] [id number] [place] [address]- 5549 May, [facility] [place] [facility] [address] [id number] [place] [address]- 9056 May, [facility] [address] [facility] [id number] [place] [address]- 4167 Apr, [facility] [address] [facility] [id number] [place] [address]- 7933 Apr, [facility] [place] [facility] [address] [facility] [id number] [place] [address]- 6882 Apr, [facility] [address] [facility] [id number] [place] [address]- 1932 Feb, [facility] [place] [facility] [address] [facility] [id number] [place] [address]- 2546 Jan, [facility] [place] [facility] [address] [facility] [id number] [place] [address]- 254 Aug, [facility] [place] [facility] [address] [id number] [place] [address]- 4126 Aug, [facility] [place] [facility] [address] [facility] [id number] [place] [address]- 2546 Aug, [facility] [place] [facility] [address] [facility] [id number] [place] [address]- 6759 Aug, [facility] [address] [id number] [place] [address]- 0944 07 Aug, 2012 [facility] [place] [facility] [address] [id number] [place] [address]- 5986 04 Aug, 2012 [facility] [address] [id number] [place] [address]- 2060 Jul, [facility] [address] [id number] [place] [address]- 7073 Jul, [facility] [address] [id number] [place] [address]- 5613 Jul, [facility] [address] [id number] [place] [address]- 1704 Jul, [facility] [address] [id number] [place] [address]- 9297 Jul, [facility] [address] [id number] [place] [address]- 4517 Jul, [facility] [address] [id number] [place] [address]- 5811 Jul, [facility] [address] [id number] [place] [address]- 7283 Jun, [facility] [address] [id number], [place] [address]- 5525 Jun, [facility] [place] [facility] [address] [id number], [place] [address]- 9507 Jun, [facility] [place] [facility] [address] [id number] [place] [address]- 3829 Jun, [facility] [place] [facility] [address] [id number], [place] [address]- 5696 Jun, [facility] [place] [facility] [address] [id number] [place] [address]- 1246 Jun, [facility] [place] [facility] [address] [id number] [place] [address]- 2382 05 Jun, 2012 [facility] [place] [facility] [address] [id number] [place] [address]- 7490 Jun, [facility] [place] [facility] [address] [id number] [place] [address]- 5786 Jun, [facility] [place] [facility] [address] [facility] [id number] [place] [address]- 1516 Jun, [facility] [place] [facility] [address] [id number] [place] [address]- 9045 May, [facility] [place] [facility] [address] [id number] [place] [address]- 4445 May, [facility] [place] [facility] [address] [facility] [id number] [place] [address]- 5784 May, [facility] [place] [facility] [address] [facility] [id number] [place] 4891 May, [facility] [place] [facility] [address] [facility] [id number] [place] [address]- 5018 May, [facility] [place] [facility] [address] [facility] [id number] [place] [address]- 4333 Apr, [facility] [place] [facility] [address] [facility] [id number] [place] [address]- 2040 Apr, [facility] [place] [facility] [address] [facility] [id number] [place] [address]- 1748 Apr, [facility] [place] [facility] [address] [facility] [id number], [place] [address]- 4107 Apr, [facility] [place] [facility] [address] [id number] [place] [address]- 6396 Apr, [facility] [place] [facility] [address] [facility] [id number], [place] [address]- 9036 Mar, [facility] [place] [facility] [address] [facility] [id number], [place] [address]- 1442 Mar, [facility] [place] [facility] [address] [id number] [place] [address]- 9358 Mar, [facility] [place] [facility] [address] [id number] [place] [address]- 9569 Mar, [facility] [place] [facility] [address] [id number] [place] [address]- 5256 Mar, [facility] [place] [facility] [address] [id number] [place] [address]- 7935 Mar, [facility] [place] [facility] [address] [id number] [place] [address]- 5085 Feb, [facility] [place] [facility] [address] [id number] [place] [address]- 5830 Feb, [facility] [place] [facility] [address] [id number] [place] [address]- 2871 Feb, [facility] [place] [facility] [address] [id number] [place] [address]- 5302 Feb, [facility] [place] [facility] [address] [id number] [place] [address]- 1627 Feb, [facility] [place] [facility] [address] [id number] [place] [address]- 7725 Jan, [facility] [place] [facility] [address] [id number] [place] [address]- 7548 Jan, [facility] [place] [facility] [address] [id number] [place] [address]- 3722 Jan, [facility] [place] [facility] [address] [id number] [place] [address]- 7674 Jan, [facility] [place] [facility] [address] [id number] [place] [address]- 8040 Jan, [facility] [place] [facility] [address] [id number] [place] [address]- 8629 Jan, [facility] [place] [facility] [address] [id number] [place] [address]- 2882 Dec, [facility] [place] [facility] [address] [id number] [place] [address]- 5504 Dec, [facility] [place] [facility] [address] [id number] [place] [address]- 1636 Dec, [facility] [place] [facility] [address] [id number] [place] [address]- 1538 Dec, [facility] [place] [facility] [address] [id number] [place] [address]- 3910 Dec, [facility] [place] [facility] [address] [id number] [place] [address]- 3708 Dec, [facility] [place] [facility] [address] [id number] [place] [address]- 6248 Dec, [facility] [place] [facility] [address] [id number] [place] [address]- 6055 November, [facility] [place] [facility] [address] [id number] [place] [address]- 9661 November, [facility] [place] [facility] [address] [id number] [place] [address]- 6961 November, [facility] [place] [facility] [address] [id number] [place] [address]- 2996 Oct, [facility] [place] [facility] [address] [id number] [place] [address]- 8486 Oct, [facility] [place] [facility] [address] [id number] [place] [address]- 3403 Oct, [facility] [place] [facility] [address] [id number] [place] [address]- 7054 Sep, [facility] [place] [facility] [address] [id number] [place] [address]- 3648 Sep, [facility] [place] [facility] [address] [id number] [place] [address]- 3119 05 Sep, 2011 [facility] [place] [facility] [address] [id number] [place] [address]- 7232 Sep, [facility] [address] [id number] [place] [address]- 5888 Sep, [facility] [place] [facility] [address] [id number] [place] [address]- 8336 Aug, [facility] [place] [facility] [address] [id number] [place] [address]- 7056 Aug, [facility] [place] [facility] [address] [id number] [place] [address]- 2362 Aug, [facility] [place] [facility] [address] [id number] [place] [address]- 9486 Aug, [facility] [place] [facility] [address] [id number] [place] [address]- 7050 Jul, [facility] [place] [facility] [address] [id number] [place] [address]- 3738 Jul, [facility] [address] [id number] [place] [address]- 3835 Jul, [facility] [place] [facility] [address] [id number] [place] [address]- 6744 Jul, [facility] [address] [id number] [place] [address]- 9723 Jul, [facility] [place] [facility] [address] [id number] [place] [address]- 0309 Jul, [facility] [place] [facility] [address] [id number] [place] [address]- 8939 Jul, [facility] [place] [facility] [address] [id number] [place] [address]- 0810 Jul, [facility] [place] [facility] [address] [id number] [place] [address] 2546 16 Jun, 2011 [facility] [place] [facility] [address] [id number] [place] [address]- 0372 13 Jun, 2011 [facility] [place] [facility] [address] [id number] [place] [address]- 2133 12 Jun, 2011 [facility] [place] [facility] [address] [id number] [place] [address]- 3439 06 Jun, 2011 [facility] [place] [facility] [address] [id number] [place] [address]- 0178 14 May, 2011 [facility] [place] [facility] [address] [id number] [place] [address]- 4860 31 Apr, 2011 [facility] [place] [facility] [address] [id number] [place] [address]- 6196 13 Mar, 2011 [facility] [place] [facility] [address] [id number] [place] [address]- 8572 16 Dec, 2010 [facility] [place] [facility] [address] [id number] [place] [address]- 9728 10 Aug, 2010 [facility] [place] [facility] [address] [id number], [place] [address]- 7044 11 Jul, 2010 [facility] [place] [facility] [address] [id number] [place] [address] 18 Sep, 2009 [facility] [place] [facility] [address] [id number] [place] [address] 12 Jul, 2009 [facility] [place] [facility] [address] [id number], [place] [address] 14 Jun, 2009 [facility] [place] [facility] [address] [id number], [place] [address] 14 Jun, 2009 [facility] [place] [facility] [address] [id number] [place] [address] 02 May, 2009 [facility] [place] [facility] [address] [id number], [place] [address] 15 Apr, 2009 [facility] [place] [facility] [address] [facility] [id number], [place] [address] 15 Apr, 2009 [facility] [place] [facility] [address] [facility] [id number] [place] [address] Apr, [facility] [place] [address] [id number], [place] [address] Feb, [facility] [place] [address] [id number], [place] [address] Feb, [facility] [place] [address] [facility] [id number], [place] [address] Jan, [facility] [place] [address] [id number], [place] [address] November, IMMUNIZATIONS No Known Immunizations SOCIAL HISTORY Never Assessed REASON FOR VISIT Referral PLAN OF CARE VITAL SIGNS MEDICATIONS Unknown Medications RESULTS No Results PROCEDURES No Known procedures INSTRUCTIONS MEDICATIONS ADMINISTERED No Known Medications MEDICAL (GENERAL) HISTORY Type Description Date Medical History Arthritis Surgical History cholecystectomy Surgical History wisdom teeth extraction Surgical History hysterectomy Hospitalization History child Hospitalization History colitis
--- OUTSIDE RECORDS SUMMARY | 2017-12-14 21:05 | XMS REPORT | Continuity of Care Document ---
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 Document Registration [id number] 08/02/2009 11:57:00 Document Registration [id number] 02/07/2009 10:51:00 Document Registration [id number] 05/07/2017 08:06:00 Document Registration [id number] 02/23/2017 23:06:00 Document Registration [id number] 04/22/2017 22:07:00 Document Registration [id number] 10/30/2017 16:00:00 10/30/2017 23:59:59 [facility] [address] [facility] [id number] 05/06/2017 14:00:00 Document Registration [id number] 04/19/2017 15:00:00 Document Registration
--- NOTE | 2017-12-14 22:07 | ED GU-Female ---
General Chief Complaint: -Female Stated Complaint: BLEEDING VAGINALLY AFTER HYSTERECTOMY Source: patient Exam Limitations: no limitations History of Present Illness Date Seen by Provider: Dec 14, 2017 Time Seen by Provider: 21:50 Initial Comments Patient presents ER by private conveyance with a chief complaint that she's having pain in her right hand third digit distally. Worse today, 2 days ago she had a pin removal were and she had fractured her finger by Drs. Mooney. She was told not to get her hand submersed for the next week as it could get infected. Today she decided to go swimming the public pool and afterwards it was swollen, white and very painful. The swelling is improved but is still very painful. She took some Tylenol that helped a little bit. She does not have any fevers chills nausea vomiting diarrhea or dysuria. Second complaint is that the patient said last night she had 2 large bright red clots from her vagina which is unusual because in August 12, 2017 she had a hysterectomy secondary to this part of hemorrhage. She had sexual intercourse 3 weeks prior to the hemorrhage and then again last night after the bleeding. She thought it had stopped but then again today she had a few more blood spots in her underwear. When it came she said she was just walking she compared it to like a heavy period. She was not having any spotting in between then. She is not having any pelvic pain or discharge. She says her urine is normal color without blood in it. She showed nursing her underwear that had about a $0.50 piece dark brown spot in it consistent with old blood. Allergies and Home Medications Allergies Coded Allergies: cephalexin (Verified Allergy, Severe, RASH, Pt has received Ampicilin in the past, 08/12/17) codeine (Verified Allergy, Mild, HIVES, FLUSHING, BURNING FEELING, 08/13/17 ) Patient has received Morphine, Hydromorphone and Lortab on previous visits without issue tramadol (Verified Adverse Reaction, Unknown, VOMITING, 07/28/16) Home Medications Hydrocodone/Acetaminophen 1 Each Tablet, 1 EACH PO Q6H PRN for PAIN-SEVERE Prescribed by: ELIUD GALEAS on 10/25/17 1831 Sulfamethoxazole/Trimethoprim 1 Each Tablet, 1 EACH PO BID Prescribed by: JAKE ROTHMAN on 12/14/17 2230 Patient Home Medication List Home Medication List Reviewed: Yes Review of Systems Constitutional: No chills, No diaphoresis EENTM: No ear discharge, No ear pain Respiratory: No cough, No phlegm Cardiovascular: No chest pain, No palpitations Gastrointestinal: No abdominal pain, No constipation, No diarrhea Genitourinary: denies burning, denies discharge, denies dysuria : No (status post hysterectomy) Musculoskeletal: see HPI; No back pain, No joint pain Skin: No pruritus, No rash Past Nieiuxp-Eeggsu-Hnwnqo Hx Patient Social History Alcohol Use: Denies Use Recreational Drug Use: No Smoking Status: Never a Smoker 2nd Hand Smoke Exposure: No Recent Foreign Travel: No Contact w/Someone Who Travel: No Recent Hopitalizations: No Immunizations Up To Date Tetanus Booster (TDap): Unknown PED Vaccines UTD: Yes Date of Influenza Vaccine: Apr 19, 2017 Seasonal Allergies Seasonal Allergies: No Past Medical History Surgeries: Yes (FINGER REPAIR W/ PIN PLACEMENT) Section, Gallbladder, Hysterectomy Respiratory: No Cardiac: No Neurological: Yes Headaches /Migraines 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 Disorders: No Female 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 Disorders: Ovarian Cyst [employer]ING [employer] F[employer]ER History: Hysterectomy Sexually Transmitted Disease: No HIV/AIDS: No Genitourinary: No Gastrointestinal: No Musculoskeletal: Yes Arthritis, Chronic Back Pain Endocrine: No HEENT: No Cancer: No Psychosocial: Yes Anxiety Integumentary: No Recent Skin Changes Blood Disorders: No Adverse Reaction/Blood Tranf: No Family Medical History Arthritis 19 FATHER Hypertension 19 FATHER No Pertinent Family Hx Physical Exam Vital Signs Capillary Refill : General Appearance: WD/WN, no apparent distress HEENT: PERRL/EOMI, pharynx normal Neck: non-tender, full range of motion, supple, normal inspection Cardiovascular: normal peripheral pulses, regular rate, rhythm Respiratory: chest non-tender, lungs clear, normal breath sounds Gastrointestinal: normal bowel sounds, non tender, soft Genital/Rectal: normal genital exam; No tenderness; other (there are some dark brown and reddish red tinged mucus and secretions in the vaginal vault with bright red blood coming from the cervical os which is closed. It is nontender to palpation. There are no masses, polyps or membranes or other foreign debris seen in the vaginal vault or cervical os.) Extremities: normal capillary refill, other (some white flaking skin and a open poor without any discharge on the distal end of the third digit of the right finger. Tender to palpation exquisitely. No crepitus felt in the joint. No swelling or erythema. Tendons and sensation are intact.) Neurologic/Psychiatric: no motor/sensory deficits, alert, oriented x 3 Progress/Results/Core Measures Suspected Sepsis SIRS Temperature: Pulse: Respiratory Rate: Laboratory Tests 12/14/17 22:20: White Blood Count 5.0 Blood Pressure / Mean: Laboratory Tests 12/14/17 22:20: Creatinine 0.70, Platelet Count 256, Total Bilirubin 0.5 Results/Orders Lab Results Laboratory Tests Test 12/14/17 22:00 12/14/17 22:20 Range/Units Urine Color YELLOW Urine Clarity CLEAR Urine pH 5 5-9 Urine Specific [place] 1.025 H 1.016-1.022 Urine Protein 2+ H NEGATIVE Urine Glucose (UA) NEGATIVE NEGATIVE Urine Ketones 1+ H NEGATIVE Urine Nitrite NEGATIVE NEGATIVE Urine Bilirubin NEGATIVE NEGATIVE Urine Urobilinogen 1 NORMAL MG/DL Urine Leukocyte Esterase 1+ H NEGATIVE Urine RBC (Auto) 5+ H NEGATIVE Urine RBC 5-10 H /HPF Urine WBC 0-2 /HPF Urine Squamous Epithelial Cells 10-25 H /HPF Urine Crystals NONE /LPF Urine Bacteria MODERATE H /HPF Urine Casts NONE /LPF Urine Mucus MODERATE H /LPF Urine Culture Indicated NO White Blood Count 5.0 4.3-11.0 10^3/uL Red Blood Count 3.06 L 4.35-5.85 10^6/uL Hemoglobin 10.1 L 11.5-16.0 G/DL Hematocrit 30 L 35-52 % Mean Corpuscular Volume 98 80-99 FL Mean Corpuscular Hemoglobin 33 25-34 PG Mean Corpuscular Hemoglobin Concent 34 32-36 G/DL Red Cell Distribution Width 12.8 10.0-14.5 % Platelet Count 256 130-400 10^3/uL Mean Platelet Volume 8.9 7.4-10.4 FL Neutrophils (%) (Auto) 41 L 42-75 % Lymphocytes (%) (Auto) 51 H 12-44 % Monocytes (%) (Auto) 6 0-12 % Eosinophils (%) (Auto) 2 0-10 % Basophils (%) (Auto) 0 0-10 % Neutrophils # (Auto) 2.1 1.8-7.8 X 10^3 Lymphocytes # (Auto) 2.5 1.0-4.0 X 10^3 Monocytes # (Auto) 0.3 0.0-1.0 X 10^3 Eosinophils # (Auto) 0.1 0.0-0.3 10^3/uL Basophils # (Auto) 0.0 0.0-0.1 10^3/uL Sodium Level 141 135-145 MMOL/L Potassium Level 3.9 3.6-5.0 MMOL/L Chloride Level 109 H 98-107 MMOL/L Carbon Dioxide Level 22 21-32 MMOL/L Anion Gap 10 5-14 MMOL/L Blood Urea Nitrogen 14 7-18 MG/DL Creatinine 0.70 0.60-1.30 MG/DL Estimat Glomerular Filtration Rate > 60 BUN/Creatinine Ratio 20 Glucose Level 85 70-105 MG/DL Calcium Level 8.9 8.5-10.1 MG/DL Total Bilirubin 0.5 0.1-1.0 MG/DL Aspartate Amino Transf (AST/SGOT) 13 5-34 U/L Alanine Aminotransferase (ALT/SGPT) 8 0-55 U/L Alkaline Phosphatase 58 40-136 U/L Total Protein 6.6 6.4-8.2 GM/DL Albumin 4.2 3.2-4.5 GM/DL My Orders Orders - JAKE ROTHMAN Ua Culture If Indicated (12/14/17 22:02) Finger(S) (12/14/17 22:02) Ketorolac Injection (Toradol Injection) (12/14/17 22:15) Cbc With Automated Diff (12/14/17 22:17) Comprehensive Metabolic Panel (12/14/17 22:17) Medications Given in ED Current Medications Medications Dose Ordered Sig/Greg Route Start Time Stop Time Status Last Admin Dose Admin Ketorolac Tromethamine 10 mg ONCE ONCE IVP 12/14/17 22:15 12/14/17 22:16 DC 12/14/17 22:27 10 MG Vital Signs/I&O Capillary Refill : Progress Note : Time: 22:10 Progress Note Urinalysis, Toradol for the pain, will cover the finger with some antibiotics and have her follow up with Drs. Mooney next week. We'll obtain an x-ray of the fingers to make sure there is no free air or evidence of destructive lesions. Since the insult just occurred today however its unlikely to see any changes and lab work. We'll do a pelvic exam. Retained endocervical polyp versus incomplete hysterectomy? Nontraumatic by history. Does not seem to be infectious as the patient is not tender. We'll obtain some blood work that would help support this. Diagnostic Imaging Diagonstic Imaging: Xray Plain Films/CT/US/NM/MRI: hand (fingers) Comments No acute osseous abdomen mildly's. No free air or obstructive lesions noted. Consults Consults : Consulting Physician: PHIL MOONEY MD Consults Notes Discussed case lab imaging findings and he agrees that the wound is probably a cellulitis and the metal pin is out so he is not terribly concerned about it. He agrees with Bactrim and he would be happy to see the patient this week in the clinic. Departure Impression Primary Impression: Finger pain, right Additional Impression: Vaginal bleeding, abnormal Disposition: 01 HOME, SELF-CARE Condition: Stable Departure-Patient Inst. Decision time for Depature: 22:46 Referrals: CELE NELSON MD (PCP/Family) Primary Care Physician ISHA GARCIA MICHAEL P MD Patient Instructions: IRREGULAR VAGINAL BLEEDING Add. Discharge Instructions: Use 1000 mg of Tylenol every 8 hours in addition to ibuprofen 800 mg every 8 hours as needed for pain. You can also use warm heat around the finger. Saturday morning call Drs. Mooney's clinic and get an appointment to follow-up on the finger. 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 Saturday morning call Dr. Garcia's office and request an appointment to follow up for your abnormal vaginal bleeding. All discharge instructions reviewed with patient and/or family. Voiced understanding. Scripts Sulfamethoxazole/Trimethoprim (Bactrim Ds Tablet) 1 Each Tablet 1 EACH PO BID for 5 Days, #10 TAB 0 Refills Prov: JAKE ROTHMAN 12/14/17 Copy Copies To 1: NORMA HAGEN DO; PHIL MOONEY MD, TITUS J Dec 14, 2017 22:07
[2017-12-14 22:10] LABS: BILIRUBIN,URINE NEGATIVE (NEGATIVE); CLARITY,URINE CLEAR; COLOR,URINE YELLOW; GLUCOSE, URINE (UA) NEGATIVE (NEGATIVE); KETONES,URINE 1+ (NEGATIVE); LEUKOCYTE ESTERASE ,URINE 1+ (NEGATIVE); NITRITE,URINE NEGATIVE (NEGATIVE); PH,URINE 5 (5-9); PROTEIN,URINE 2+ (NEGATIVE); UROBILINOGEN,URINE 1 MG/DL (NORMAL)
[2017-12-14] MEDS ORDERED: KETOROLAC 30 MG/ML VIAL IVP ONE (22:15)
[2017-12-14 22:22] LABS: BACTERIA,URINE MODERATE /HPF; WBC,URINE 0-2 /HPF
[2017-12-14 22:26] LABS: BASOPHILS % (AUTO) 0 % (0-10); EOSINOPHILS # (AUTO) 0.1 10^3/uL (0.0-0.3); EOSINOPHILS % (AUTO) 2 % (0-10); HEMATOCRIT 30 % (35-52); HEMOGLOBIN 10.1 G/DL (11.5-16.0); LYMPHOCYTES # (AUTO) 2.5 X 10^3 (1.0-4.0); LYMPHOCYTES % (AUTO) 51 % (12-44); MEAN CORPUSCULAR HEMOGLOBIN 33 PG (25-34); MEAN CORPUSCULAR HGB CONC 34 G/DL (32-36); MEAN CORPUSCULAR VOLUME 98 FL (80-99); MEAN PLATELET VOLUME 8.9 FL (7.4-10.4); MONOCYTES # (AUTO) 0.3 X 10^3 (0.0-1.0); MONOCYTES % (AUTO) 6 % (0-12); NEUTROPHILS # (AUTO) 2.1 X 10^3 (1.8-7.8); NEUTROPHILS % (AUTO) 41 % (42-75); PLATELET COUNT 256 10^3/uL (130-400); RED BLOOD COUNT 3.06 10^6/uL (4.35-5.85); RED CELL DISTRIBUTION WIDTH 12.8 % (10.0-14.5)
[2017-12-14] MEDS ORDERED: SULF1TAB35 PO (22:30)
[2017-12-14 22:43] LABS: ALANINE AMINOTRANSFERASE 8 U/L (0-55); ALBUMIN 4.2 GM/DL (3.2-4.5); ALKALINE PHOSPHATASE 58 U/L (40-136); BILIRUBIN,TOTAL 0.5 MG/DL (0.1-1.0); BUN/CREATININE RATIO 20; CALCIUM 8.9 MG/DL (8.5-10.1); CARBON DIOXIDE 22 MMOL/L (21-32); CHLORIDE 109 MMOL/L (98-107); GFR ESTIMATED > 60; GLUCOSE 85 MG/DL (70-105); POTASSIUM 3.9 MMOL/L (3.6-5.0); SODIUM 141 MMOL/L (135-145); TOTAL PROTEIN 6.6 GM/DL (6.4-8.2)
[2017-12-14 22:54] VITALS: BP 110/71
--- NOTE | 2017-12-15 07:03 | Diagnostic Imaging Report ---
INDICATION: Recent surgery, right middle finger is purple COMPARISON: 11/11/2017 TECHNIQUE: 3 radiographs of the right hand third digit dated 12/14/2017 FINDINGS: Interval removal of previously noted K-wire transfixing the third digit DIP joint. Minimal persistent lucency and irregularity remains at this location, felt to be postsurgical in nature. No new fracture or dislocation. No destructive osseous process. Healed fracture involving the base of the third digit distal phalanx is noted with focal angulation. No suspicious radiopaque foreign body. IMPRESSION: Postsurgical changes involving the third digit DIP joint with interval removal of K-wire without evidence of acute osseous abnormality or suspicious radiopaque foreign body. Dictated by: Dictated on workstation # [id number]
== END 2017-12-14 22:54 | disposition home or self-care (01) ==
LOC: EDUNIT# 20:54 → ER 20:55
DX: N99.821 Postprocedural hemorrhage of a genitourinary system organ or structure following other procedure (principal); M79.644 Pain in right finger(s); F41.9 Anxiety disorder, unspecified; G43.909 Migraine, unspecified, not intractable, without status migrainosus; Z87.59 Personal history of other complications of pregnancy, childbirth and the puerperium; Z90.710 Acquired absence of both cervix and uterus; Z87.42 Personal history of other diseases of the female genital tract; Z88.1 Allergy status to other antibiotic agents; Z88.5 Allergy status to narcotic agent; Z88.6 Allergy status to analgesic agent
CPT/HCPCS: 36415; 73140; 80053; 81000; 85025; 96374

== ENCOUNTER 2017-12-30 00:09 | Emergency (ER) | payer MEDICAID ==
[~2017-12-30] VITALS: Ht 162.6 cm; Wt 49.9 kg
--- OUTSIDE RECORDS SUMMARY | 2017-12-30 00:15 | XMS REPORT ---
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 Name Role Phone CELE NELSON Unavailable PROBLEMS Type Condition ICD9-CM Code LOR06-NZ Code Onset Dates Condition Status SNOMED Code Problem Other chronic pain G89.29 Active 04163742 Problem Difficulty of mother performing R63.3 Active 564053736 Problem History of anxiety Z86.59 Active 407861275 Problem Menstrual migraine without status migrainosus, not intractable G43.829 Active 16110381 Problem Rheumatoid arthritis with positive rheumatoid factor, involving unspecified site M05.9 Active 306461502 Problem Insomnia, unspecified type G47.00 Active 904134630 ALLERGIES No Information ENCOUNTERS Encounter Location Date Diagnosis [place] [address] [address] Jan, [place] [address] [address] Dec, [place] [address] [address]- [address] Dec, Screening, deficiency anemia, iron Z13.0 [place] [address] [address]- [address] Oct, Rheumatoid arthritis with positive rheumatoid factor, involving unspecified site M05.9 [place] [address] [address] Oct, Rheumatoid arthritis with positive rheumatoid factor, involving unspecified site M05.9 [place] [address] [address]- [address] Oct, Closed nondisplaced fracture of third metatarsal bone of right foot with routine healing, subsequent encounter S92.334D ; Closed nondisplaced fracture of second metatarsal bone of right foot with routine healing, subsequent encounter S92.324D ; Closed nondisplaced fracture of phalanx of left great toe with routine healing, unspecified phalanx, subsequent encounter S92.405D and Other chronic pain G89.29 [facility] [address] [id number] [address] Oct, Closed nondisplaced fracture of third metatarsal [...] positive rheumatoid factor, involving unspecified site M05.9 [place] [address] [facility] [id number] [place] [address] 04260- 5908 Oct, [facility] [address] [facility] [id number] [place] [address] 13643- 5089 Oct, Injury of finger of right hand, initial encounter S69.91XA and Closed displaced fracture of distal phalanx of right middle finger, initial encounter S62.632A [facility] [address] [facility] [id number] [place] [address] 42050- 7990 Sep, Mastitis N61.0 and MRSA (methicillin resistant staph aureus ) culture positive Z22.322 [place] [address] [id number] [place] [address] 07050- 0269 Sep, [facility] [address] [id number] [place] [address] 33163- 6385 Sep, Difficulty of mother performing R63.3 [facility] [address] [facility] [id number] [place] [address] 47754- 9386 Sep, Acute mastitis of left breast N61.0 [facility] [address] [id number] [place] [address] 77070 -5255 Sep, Abscess L02.91 [place] [id number] [address] 5[address] Sep, [place] [id number] [place] [address] 28198- 4496 Jun, [place] [address] [place] [id number] [place] [address] 20801- 9278 Jun, care, subsequent in second trimester Z34.82 ; Placenta previa in second trimester O44.02 ; Abnormal quad screen O28.0 ; History of delivery, currently O09.219 and 24 weeks gestation of Z3A.24 [place] [address] [place] [id number] [place] [address] 90939- 2014 May, Dental examination Z01.20 [place] [address] [place] [id number] [place] [address] 54739- 4325 May, History of delivery, currently O09.219 [place] [address] [place] [id number] [place] [address] 84616- 5982 May, [place] [address] [place] [id number] [place] [address] 03111- 1941 May, 20 weeks gestation of Z3A.20 ; care, subsequent in second trimester Z34.82 ; History of delivery, currently O09.219 and Abnormal quad screen O28.0 [place] [id number] [place] [address] 01769- 9504 Apr, Elevated blood sugar level R73.9 and Glucosuria R81 [place] [id number] [place] [address] 39843- 2200 Apr, Elevated blood sugar level R73.9 and Glucosuria R81 [place] [id number] [place] [address] 12373- 8684 Apr, Elevated blood sugar level R73.9 [place] [address] [place] [id number] [place] [address] 35363- 3353 Apr, [place] [address] [place] [id number] [place] [address] 65044- 1834 Apr, 16 weeks gestation of Z3A.16 ; care, subsequent in second trimester Z34.82 ; Encounter for immunization Z23 and Glucosuria R81 [place] [address] [place] [id number] [place] [address] 35917- 4007 Mar, 12 weeks gestation of Z3A.12 [place] [address] [place] [id number] [place] [address] 17300- 8375 14 Feb, [address] [address]- 9152 Feb, care, subsequent in first trimester Z34.81 and 8 weeks gestation of Z3A.08 [place] [address] [place] [id number] [place] [address] 29940- 4226 Jan, [place] [address] [place] [id number] [place] [address] 38932- 9282 Jul, Encounter for test, result unknown Z32.00 [place] [address] [place] [id number] [place] [address] 80812- 4196 Jun, control counseling Z30.9 and Insomnia, unspecified type G47.00 [place] [address] [place] [id number] [place] [address] 51572- 7466 Sep, Encounter for test Z32.00 [place] [address] [place] [id number] [place] [address] 66581- 1491 Jul, [address] 40777- 1621 Jul, Well woman exam Z01.419 ; Encounter for screening for malignant neoplasm of cervix Z12.4 ; Vaginal discharge N89.8 ; Routine screening for STI (sexually transmitted infection) Z11.3 ; Encounter for prescription for transdermal contraceptive Z30.49 ; Nausea with vomiting, unspecified R11.2 ; Menstrual migraine without status migrainosus, not intractable G43.829 and History of anxiety Z86.59 [facility] [address] [place] [id number] [place] [address] 29113- 9389 Jun, Encounter for surveillance of transdermal contraceptive Z30.49 and Sauceda F48.9 [facility] [address] [place] [id number] [place] [address] 76477- 7930 14 Oct, 2014 [facility] [address] [place] [id number] [place] [address] 79855- 0673 Oct, [facility] [address] [place] [id number] [place] [address] 26853- 1317 Jul, [facility] [address] [place] [id number] [place] [address] 41039- 8119 Jul, [facility] [address] [place] [id number] [place] [address] 67274- 2525 Jul, [facility] [address] [place] [id number] [place] [address] 02671- 5441 Jul, [facility] [address] [place] [id number] [place] [address] 37286- 1157 Jul, [facility] [address] [place] [id number] [place] [address] 90218- 5520 Jul, [facility] [id number] [place] [address] 27709- 1738 Jun, [facility] [address] [place] [id number] [place] [address] 27317- 5098 Jun, [facility] [address] [place] [id number] [place] [address] 23670- 5017 May, [facility] [address] [place] [id number] [place] [address] 25919- 9432 May, [facility] [id number] [place] [address] 92274- 1715 May, [facility] [address] [place] [id number] [place] [address], [place] [address]- 3908 May, [facility] [place] [facility] [address] [id number] [place] [address]- 3445 Feb, [facility] [place] [facility] [address] [id number] [place] [address]- 1095 Feb, [facility] [place] [facility] [address] [id number] [place] [address]- 3342 Feb, [facility] [place] [facility] [address] [id number] [place] [address]- 3306 Feb, [facility] [place] [facility] [address] [id number] [place] [address]- 5456 Oct, [facility] [place] [facility] [address] [id number] [place] [address]- 5269 Oct, [facility] [place] [facility] [address] [id number] [place] [address]- 3994 Sep, [facility] [place] [facility] [address] [id number] [place] [address]- 5772 Sep, [facility] [place] [facility] [address] [id number] [place] [address]- 8705 Sep, [facility] [place] [facility] [address] [id number] [place] [address]- 4120 Sep, [facility] [place] [facility] [address] [id number] [place] [address]- 4057 Aug, [facility] [place] [facility] [address] [id number] [place] [address]- 5727 Aug, [facility] [place] [facility] [address] [id number] [place] [address]- 2677 Jul, [facility] [place] [facility] [address] [id number] [place] [address]- 9889 Jul, [facility] [place] [facility] [address] [id number] [place]- 1456 Jun, [facility] [place] [facility] [address] [id number] [place] [address]- 2465 Jun, [facility] [place] [facility] [address] [id number] [place] [address]- 1124 Jun, [facility] [place] [facility] [address] [id number] [place] [address]- 3913 Jun, [facility] [place] [facility] [address] [id number] [place] [address]- 4643 Jun, [facility] [place] [facility] [address] [id number] [place] [address]- 4113 May, [facility] [place] [facility] [address] [id number] [place] [address]- 5427 May, [facility] [place] [facility] [address] [id number] [place] [address]- 9042 May, [facility] [place] [facility] [address] [id number] [place] [address]- 6359 May, [facility] [place] [facility] [address] [id number] [place] [address]- 1293 Apr, [facility] [place] [facility] [address] [facility] [id number] [place] [address]- 2296 Apr, [facility] [place] [facility] [address] [facility] [id number] [place] [address]- 5485 Apr, [facility] [place] [facility] [address] [id number] [place] [address]- 6133 Feb, [facility] [place] [facility] [address] [id number] [place] [address]- 3091 Jan, [facility] [place] [facility] [address] [id number] [place] [address]- 4652 Aug, [facility] [place] [facility] [address] [id number] [place] [address]- 9534 Aug, [facility] [place] [facility] [address] [id number] [place] [address]- 2750 12 Aug, 2012 [facility] [address] [id number] [place] [address]- 4115 08 Aug, 2012 [facility] [address] [id number] [place] [address]- 4306 07 Aug, 2012 [facility] [address] [id number] [place] [address]- 8496 04 Aug, 2012 [facility] [address] [id number] [place] [address]- 1200 Jul, [facility] [address] [id number] [place] [address]- 0720 Jul, [facility] [address] [id number] [place] [address]- 7571 Jul, [facility] [address] [id number] [place] [address]- 6929 Jul, [facility] [address] [id number] [place] [address]- 2394 Jul, [facility] [address] [id number] [place] [address]- 9805 Jul, [facility] [address] [facility] [id number] [place] [address]- 9176 Jul, [facility] [address] [id number] [place] [address]- 8616 Jun, [facility] [address] [id number] [place] [address]- 4294 Jun, [facility] [address] [id number] [place] [address]- 0817 Jun, [facility] [address] [id number] [place] [address]- 4345 Jun, [facility] [address] [id number] [place] [address]- 8752 05 Jun, 2012 [facility] [place] [facility] [address] [id number] [place] [address]- 1000 Jun, [facility] [place] [facility] [address] [id number] [place] [address]- 3965 Jun, [facility] [place] [facility] [address] [id number] [place] 5549 Jun, [facility] [place] [facility] [address] [id number] [place] [address]- 9999 Jun, [facility] [place] [facility] [address] [id number] [place] [address]- 4859 Jun, [facility] [place] [facility] [address] [id number] [place] [address]- 3203 May, [facility] [place] [facility] [address] [id number] [place] [address]- 0175 May, [facility] [place] [facility] [address] [id number] [place] [address]- 1409 May, [facility] [place] [facility] [address] [id number] [place] [address]- 0962 May, [facility] [place] [facility] [address] [id number] [place] [address]- 3571 May, [facility] [place] [facility] [address] [facility] [id number] [place] [address]- 8847 Apr, [facility] [place] [facility] [address] [id number] [place] [address]- 8186 Apr, [facility] [place] [facility] [address] [id number] [place] [address]- 6829 Apr, [facility] [place] [facility] [address] [id number] [place] [address]- 5749 Apr, [facility] [place] [facility] [address] [id number] [place] [address]- 5676 Apr, [facility] [place] [facility] [address] [id number] [place] [address]- 2314 25 Mar, 2011 [facility] [place] [facility] [address] [id number] [place] [address]- 0496 20 Mar, 2011 [facility] [place] [facility] [address] [id number] [place] [address]- 0176 12 Mar, 2012 [facility] [place] [facility] [address] [id number] [place] [address]- 7436 07 Mar, 2011 [facility] [place] [facility] [address] [id number] [place] [address]- 7926 06 Mar, 2011 [facility] [place] [facility] [address] [id number] [place] [address]- 6886 05 Mar, 2012 [facility] [place] [facility] [address] [id number] [place] [address]- 4742 Feb, [facility] [place] [facility] [address] [id number] [place] [address]- 7675 Feb, [facility] [place] [facility] [address] [id number] [place] [address]- 7540 Feb, [facility] [place] [facility] [address] [id number] [place] [address]- 1314 Feb, [facility] [place] [facility] [address] [id number] [place] [address]- 6198 Feb, [facility] [place] [facility] [address] [id number] [place] [address]- 2721 Jan, [facility] [place] [facility] [address] [id number] [place] [address]- 0900 Jan, [facility] [place] [facility] [address] [id number] [place] [address]- 1937 Jan, [facility] [place] [facility] [address] [id number] [place] [address]- 3291 Jan, [facility] [place] [facility] [address] [id number] [place] [address]- 3126 Jan, [facility] [place] [facility] [address] [id number] [place] [address]- 5409 05 Jan, 2012 [facility] [address] [id number] [place] [address]- 9192 Dec, [facility] [place] [facility] [address] [id number] [place] [address]- 3360 Dec, [facility] [address] [id number] [place] [address]- 6372 Dec, [facility] [place] [facility] [address] [id number] [place] [address]- 0793 Dec, [facility] [address] [id number] [place] [address]- 8084 Dec, [facility] [address] [id number] [place] [address]- 3939 Dec, [facility] [address] [id number] [place] [address]- 6310 Dec, [facility] [address] [id number] [place] [address]- 3537 November, [facility] [address] [id number] [place] [address]- 9166 November, [facility] [address] [id number] [place] [address]- 7394 November, [facility] [address] [id number] [place] [address]- 3340 Oct, [facility] [place] [facility] [address] [id number] [place] [address]- 0253 Oct, [facility] [place] [facility] [address] [id number] [place] [address]- 8736 Oct, [facility] [place] [facility] [address] [id number] [place] [address]- 3977 Sep, [facility] [place] [facility] [address] [id number] [place] [address]- 0194 Sep, [facility] [place] [facility] [address] [id number] [place] [address]- 2527 05 Sep, 2011 [facility] [place] [facility] [address] [id number] [place] [address]- 1422 04 Sep, 2011 [facility] [place] [facility] [address] [id number] [place] [address]- 3114 02 Sep, 2011 [facility] [place] [facility] [address] [id number] [place] [address]- 8021 Aug, [facility] [place] [facility] [address] [id number] [place] [address]- 4588 Aug, [facility] [place] [facility] [address] [id number] [place] [address]- 3169 Aug, [facility] [place] [facility] [address] [id number] [place] [address]- 0820 Aug, [facility] [place] [facility] [address] [id number] [place] [address]- 9279 30 Jul, 2011 [facility] [place] [facility] [address] [id number] [place] [address]- 5821 Jul, [facility] [place] [facility] [address] [id number] [place] [address]- 0901 Jul, [facility] [place] [facility] [address] [id number] [place] [address]- 7890 Jul, [facility] [place] [facility] [address] [id number] [place] [address]- 1592 18 Jul, 2011 [facility] [place] [facility] [address] [id number] [place] [address]- 3153 12 Jul, 2011 [facility] [place] [facility] [address] [id number] [place] [address]- 6399 Jul, [facility] [place] [facility] [address] [id number] [place] [address]- 5391 10 Jul, 2011 [facility] [place] [facility] [address] [id number] [place] [address]- 7047 16 Jun, 2011 [facility] [address] [id number] [place] [address]- 9649 13 Jun, 2011 [facility] [place] [facility] [address] [id number] [place] [address]- 5317 12 Jun, 2011 [facility] [place] [facility] [address] [id number] [place] [address]- 2836 06 Jun, 2011 [facility] [place] [facility] [address] [id number] [place] [address]- 7807 14 May, 2011 [facility] [place] [facility] [address] [id number] [place] [address]- 0672 31 Apr, 2011 [facility] [place] [facility] [address] [id number] [place] [address]- 9547 13 Mar, 2011 [facility] [place] [facility] [address] [id number] [place] [address]- 1205 16 Dec, 2010 [facility] [place] [facility] [address] [id number] [place] [address]- 7352 10 Aug, 2010 [facility] [place] [facility] [address] [id number] [place] [address]- 7767 11 Jul, 2010 [facility] [place] [facility] [address] [facility] [id number] [place] [address]- 4341 18 Sep, 2009 [facility] [place] [facility] [address] [id number] [place] [address] 12 Jul, 2009 [facility] [place] [facility] [address] [id number] [place] [address] 14 Jun, 2009 [facility] [place] [facility] [address] [id number] [place] [address] 14 Jun, 2009 [facility] [place] [facility] [address] [id number] [place] [address] 02 May, 2009 [facility] [place] [facility] [address] [id number] [address] 15 Apr, 2009 [facility] [address] [id number] [address] Apr, [facility] [address] [id number] [address] Apr, [facility] [id number] [address] Feb, [facility] [id number] [address] Feb, [facility] [id number] [address] Jan, [facility] [address] [id number] [address] November, IMMUNIZATIONS No Known Immunizations SOCIAL HISTORY Never Assessed REASON FOR VISIT Watts Injection RX PLAN OF CARE VITAL SIGNS MEDICATIONS Medication Instructions Dosage Frequency Start Date End Date Duration Status Watts 250 MG/ML Intramuscular once weekly 1 ml May, Active RESULTS No Results PROCEDURES No Known procedures INSTRUCTIONS MEDICATIONS ADMINISTERED No Known Medications MEDICAL (GENERAL) HISTORY Type Description Date Medical History Arthritis Surgical History cholecystectomy Surgical History wisdom teeth extraction Surgical History hysterectomy Hospitalization History child Hospitalization History colitis
--- OUTSIDE RECORDS SUMMARY | 2017-12-30 00:16 | XMS REPORT ---
Author Author LESLIE CELE Organization [facility] Address [address] [place] [address] Care Team Providers Care Stem Teacher Name Role Phone LESLIEALBERTO REIDHANY Unavailable PROBLEMS Type Condition ICD9-CM Code CNF40-ZK Code Onset Dates Condition Status SNOMED Code Problem Other chronic pain G89.29 Active 45423403 Problem Difficulty of mother performing R63.3 Active 924912409 Problem History of anxiety Z86.59 Active 865862381 Problem Menstrual migraine without status migrainosus, not intractable G43.829 Active 90450602 Problem Rheumatoid arthritis with positive rheumatoid factor, involving unspecified site M05.9 Active 338190264 Problem Insomnia, unspecified type G47.00 Active [id number] ALLERGIES No Information ENCOUNTERS Encounter Location Date Diagnosis [place] [id number] [place] [address] 72328- 5331 Jan, [place] [address] 42079- 6098 Dec, Screening, deficiency anemia, iron Z13.0 [place] [address] 27032- 6619 Oct, Rheumatoid arthritis with positive rheumatoid factor, involving unspecified site M05.9 [place] [id number] [place] [address] 68735- 9826 Oct, Rheumatoid arthritis with positive rheumatoid factor, involving unspecified site M05.9 [place] [address] 41500- 5813 Oct, Closed nondisplaced fracture of third metatarsal bone of right foot with routine healing, subsequent encounter S92.334D ; Closed nondisplaced fracture of second metatarsal bone of right foot with routine healing, subsequent encounter S92.324D ; Closed nondisplaced fracture of phalanx of left great toe with routine healing, unspecified phalanx, subsequent encounter S92.405D and Other chronic pain G89.29 [place] [address] [facility] [id number] [place] [address] 56821- 2171 17 Oct, 2017 Closed nondisplaced fracture of [...] positive rheumatoid factor, involving unspecified site M05.9 [place] [address] [place] [address] 01837- 4913 Oct, [place] [id number] [place] [address] 02424- 0173 Oct, Injury of finger of right hand, initial encounter S69.91XA and Closed displaced fracture of distal phalanx of right middle finger, initial encounter S62.632A [place] [address] [place] [address] 88874- 1336 Sep, Mastitis N61.0 and MRSA (methicillin resistant staph aureus ) culture positive Z22.322 [place] [address] [place] [address] 41482- 4337 Sep, [facility] [address] [place] [address] 50042- 1274 Sep, Difficulty of mother performing R63.3 [place] [address] [place] [address] 82876- 1010 Sep, Acute mastitis of left breast N61.0 [facility] [address] [place] [address] 34792 -7309 Sep, Abscess L02.91 [facility] [id number] [place] [address] 25918- 9542 Sep, [place] [address] [place] [address] 10853- 7434 Jun, [place] [id number] [place] [address] 86456- 4638 Jun, care, subsequent in second trimester Z34.82 ; Placenta previa in second trimester O44.02 ; Abnormal quad screen O28.0 ; History of delivery, currently O09.219 and 24 weeks gestation of Z3A.24 [place] [id number] [place] [address] 42921- 2923 May, Dental examination Z01.20 [place] [id number] [place] [address] 18485- 5710 May, History of delivery, currently O09.219 [place] [id number] [place] [address] 49700- 5355 May, [place] [id number] [place] [address] 76945- 1029 May, 20 weeks gestation of Z3A.20 ; care, subsequent in second trimester Z34.82 ; History of delivery, currently O09.219 and Abnormal quad screen O28.0 [place] [address] [place] [address] 13921- 6001 Apr, Elevated blood sugar level R73.9 and Glucosuria R81 [place] [id number] [place] [address] 57044- 7124 Apr, Elevated blood sugar level R73.9 and Glucosuria R81 [place] [id number] [place] [address] 59452- 2868 Apr, Elevated blood sugar level R73.9 [place] [id number] [place] [address] 25495- 1608 Apr, [place] [id number] [place] [address] 56615- 9383 Apr, 16 weeks gestation of Z3A.16 ; care, subsequent in second trimester Z34.82 ; Encounter for immunization Z23 and Glucosuria R81 [place] [id number] [place] [address] 62020- 7055 08 Mar, 2017 12 weeks gestation of Z3A.[address] 16693- 9907 14 Feb, [address] 34385- 3400 Feb, care, subsequent in first trimester Z34.81 and 8 weeks gestation of Z3A.08 [place] [id number] [place] [address] 46577- 0094 Jan, [address] 31955- 9878 Jul, Encounter for test, result unknown Z32.00 [place] [id number] [place] [address] 78799- 1944 Jun, control counseling Z30.9 and Insomnia, unspecified type G47.00 [place] [id number] [place] [address] 68296- 3785 Sep, Encounter for test Z32.00 [place] [id number] [place] [address] 67805- 0318 Jul, [place] [id number] [place] [address] 91674- 2075 Jul, Well woman exam Z01.419 ; Encounter for screening for malignant neoplasm of cervix Z12.4 ; Vaginal discharge N89.8 ; Routine screening for STI (sexually transmitted infection) Z11.3 ; Encounter for prescription for transdermal contraceptive Z30.49 ; Nausea with vomiting, unspecified R11.2 ; Menstrual migraine without status migrainosus, not intractable G43.829 and History of anxiety Z86.59 [place] [address] [address]- 3924 Jun, Encounter for surveillance of transdermal contraceptive Z30.49 and Sauceda F48.9 [facility] [id number] [address]- 4738 14 Oct, 2014 [facility] [id number] [place] [address] 86823- 4189 Oct, [facility] [id number] [place] [address] 69381- 5591 Jul, [facility] [id number] [place] [address] 44375- 7750 Jul, [facility] [id number] [place] [address] 26730- 1545 Jul, [facility] [id number] [place] [address] 16005- 3383 Jul, [facility] [id number] [place] [address] 06825- 2911 Jul, [facility] [address] [place] [address] 20567- 3103 Jul, [facility] [address] [address]- 3166 Jun, [facility] [address] [address]- 2862 Jun, [facility] [address] [address]- 2891 May, [facility] [address] [address]- 4301 May, [facility] [address] [address]- 4205 May, [facility] [address] [place] [address]- 4945 May, [facility] [id number] [place] [address], [place] [address]- 8601 Feb, [facility] [place] [facility] [address] [id number] [place] [address]- 0425 Feb, [facility] [place] [facility] [address] [id number] [place] [address]- 1735 Feb, [facility] [place] [facility] [address] [id number] [place] [address]- 1101 Feb, [facility] [place] [facility] [address] [id number] [place] [address]- 8662 Oct, [facility] [place] [facility] [address] [id number] [place] [address]- 3960 Oct, [facility] [place] [facility] [address] [id number] [place] [address]- 9327 Sep, [facility] [place] [facility] [address] [id number] [place] [address]- 5493 Sep, [facility] [place] [facility] [address] [id number] [place] [address]- 9778 Sep, [facility] [place] [facility] [address] [id number] [place] [address]- 9674 Sep, [facility] [place] [facility] [address] [id number] [place] [address]- 8288 Aug, [facility] [place] [facility] [address] [id number] [place] [address]- 4553 Aug, [facility] [place] [facility] [address] [id number] [place] [address]- 2434 Jul, [facility] [place] [facility] [address] [id number] [place] [address]- 3907 Jul, [facility] [place] [facility] [address] [id number] [place] [address]- 0001 Jun, [facility] [place] [facility] [address] [id number] [place] [address]- 5128 Jun, [facility] [place] [facility] [address] [id number] [place] [address]- 7285 Jun, [facility] [place] [facility] [address] [id number] [place] [address]- 9576 Jun, [facility] [place] [facility] [address] [id number] [place] [address]- 0974 Jun, [facility] [place] [facility] [address] [id number] [place] [address]- 0429 May, [facility] [place] [facility] [address] [id number] [place] [address]- 0559 May, [facility] [place] [facility] [address] [id number] [place] [address]- 3287 May, [facility] [place] [facility] [address] [facility] [id number] [place] [address]- 6806 May, [facility] [place] [facility] [address] [id number] [place] [address]- 2741 Apr, [facility] [place] [facility] [address] [id number] [place] [address]- 2627 Apr, [facility] [place] [facility] [address] [facility] [id number] [address]- 5060 Apr, [facility] [place] [facility] [address] [facility] [id number] [place] [address]- 4577 Feb, [facility] [place] [facility] [address] [id number] [address]- 1546 Jan, [facility] [place] [facility] [address] [id number] [place] [address]- 7755 Aug, [facility] [place] [facility] [address] [id number] [place] [address]- 5176 Aug, [facility] [place] [facility] [address] [id number] [address]- 1616 Aug, [facility] [place] [facility] [address] [id number], [place] [address]- 4198 08 Aug, 2012 [facility] [address] [id number] [place] [address]- 5952 07 Aug, 2012 [facility] [address] [id number] [place] [address]- 8826 04 Aug, 2012 [facility] [address] [id number] [place] [address]- 4340 Jul, [facility] [address] [id number] [place] [address]- 8907 Jul, [facility] [address] [id number] [place] [address]- 5757 Jul, [facility] [address] [id number] [place] [address]- 2804 Jul, [facility] [address] [id number] [place] [address]- 4731 Jul, [facility] [address] [id number] [place] [address]- 5336 Jul, [facility] [address] [id number] [place] [address]- 6147 Jul, [facility] [address] [facility] [id number] [place] [address]- 7178 Jun, [facility] [address] [id number] [place] [address]- 5516 Jun, [facility] [address] [id number], [place] [address]- 0407 Jun, [facility] [address] [id number] [place] [address]- 5341 Jun, [facility] [address] [id number] [place] [address]- 3730 Jun, [facility] [address] [id number] [place] [address]- 2702 Jun, [facility] [place] [facility] [address] [id number] [place] [address]- 4981 Jun, [facility] [place] [facility] [address] [id number] [place] 8111 Jun, [facility] [place] [facility] [address] [id number] [place] [address]- 5627 Jun, [facility] [place] [facility] [address] [id number] [place] [address]- 4532 Jun, [facility] [place] [facility] [address] [id number] [place] [address]- 5481 May, [facility] [place] [facility] [address] [id number] [place] [address]- 0286 May, [facility] [place] [facility] [address] [id number] [place] [address]- 1945 May, [facility] [place] [facility] [address] [id number] [place] [address]- 2572 May, [facility] [place] [facility] [address] [id number] [place] [address]- 9438 May, [facility] [place] [facility] [address] [id number] [place] [address]- 4970 Apr, [facility] [place] [facility] [address] [id number] [place] [address]- 8571 Apr, [facility] [place] [facility] [address] [id number] [place] [address]- 1604 Apr, [facility] [place] [facility] [address] [id number] [place] [address]- 6675 Apr, [facility] [place] [facility] [address] [id number] [place] [address]- 2378 Apr, [facility] [place] [facility] [address] [id number] [place] [address]- 0617 Mar, [facility] [place] [facility] [address] [id number] [place] [address]- 0991 Mar, [facility] [place] [facility] [address] [id number] [place] [address]- 6021 12 Mar, 2012 [facility] [place] [facility] [address] [id number] [place] [address]- 3186 Mar, [facility] [place] [facility] [address] [id number] [place] [address]- 2286 Mar, [facility] [place] [facility] [address] [id number] [place] [address]- 6779 05 Mar, 2012 [facility] [place] [facility] [address] [id number] [place] [address]- 4539 Feb, [facility] [place] [facility] [address] [id number] [place] [address]- 1879 Feb, [facility] [place] [facility] [address] [id number] [place] [address]- 6329 Feb, [facility] [place] [facility] [address] [id number] [place] [address]- 9247 Feb, [facility] [place] [facility] [address] [id number] [place] [address]- 2844 Feb, [facility] [place] [facility] [address] [id number] [place] [address]- 8676 Jan, [facility] [place] [facility] [address] [id number] [place] [address]- 3367 Jan, [facility] [place] [facility] [address] [id number] [place] [address]- 4473 Jan, [facility] [place] [facility] [address] [id number] [place] [address]- 5062 Jan, [facility] [place] [facility] [address] [id number] [place] [address]- 7157 Jan, [facility] [place] [facility] [address] [id number] [place] [address]- 9076 Jan, [facility] [place] [facility] [address] [id number] [place] [address]- 0177 28 Dec, 2011 [facility] [address] [id number] [place] [address]- 5236 Dec, [facility] [place] [facility] [address] [id number] [place] [address]- 9956 Dec, [facility] [address] [id number] [place] [address]- 2682 Dec, [facility] [address] [id number] [place] [address]- 5139 06 Dec, 2011 [facility] [address] [id number] [place] [address]- 6468 05 Dec, 2011 [facility] [address] [id number] [place] [address]- 9201 Dec, [facility] [address] [id number] [place] [address]- 8466 November, [facility] [address] [id number] [place] [address]- 0199 November, [facility] [address] [id number] [place] [address]- 3582 November, [facility] [address] [id number] [place] [address]- 4207 Oct, [facility] [place] [facility] [address] [id number] [place] [address]- 6171 Oct, [facility] [place] [facility] [address] [id number] [place] [address]- 5682 Oct, [facility] [place] [facility] [address] [id number] [place] [address]- 1246 Sep, [facility] [place] [facility] [address] [id number] [place] [address]- 5382 Sep, [facility] [place] [facility] [address] [id number] [place] [address]- 4365 05 Sep, 2011 [facility] [place] [facility] [address] [id number] [place] [address]- 3359 Sep, [facility] [place] [facility] [address] [id number] [place] [address]- 0795 Sep, [facility] [place] [facility] [address] [id number] [place] [address]- 8476 Aug, [facility] [place] [facility] [address] [id number] [place] [address]- 3426 Aug, [facility] [place] [facility] [address] [id number] [place] [address]- 8821 Aug, [facility] [place] [facility] [address] [id number] [place] [address]- 2156 Aug, [facility] [place] [facility] [address] [id number] [place] [address]- 5523 Jul, [facility] [place] [facility] [address] [id number] [place] [address]- 5148 Jul, [facility] [place] [facility] [address] [id number] [place] [address]- 0352 Jul, [facility] [place] [facility] [address] [id number] [place] [address]- 8561 Jul, [facility] [place] [facility] [address] [id number] [place] [address]- 3073 Jul, [facility] [place] [facility] [address] [id number] [place] [address]- 7048 Jul, [facility] [place] [facility] [address] [id number] [place] [address]- 1092 Jul, [facility] [place] [facility] [address] [id number] [place] [address]- 5168 10 Jul, 2011 [facility] [place] [facility] [address] [id number] [place] [address]- 8494 16 Jun, 2011 [facility] [place] [facility] [address] [id number] [place] [address]- 7311 13 Jun, 2011 [facility] [address] [id number] [place] [address]- 1807 12 Jun, 2011 [facility] [place] [facility] [address] [id number] [place] [address]- 0658 06 Jun, 2011 [facility] [place] [facility] [address] [id number] [place] [address]- 0813 14 May, 2011 [facility] [place] [facility] [address] [id number] [place] [address]- 2738 31 Apr, 2011 [facility] [place] [facility] [address] [id number] [place] [address]- 4641 13 Mar, 2011 [facility] [place] [facility] [address] [id number] [place] [address]- 0450 16 Dec, 2010 [facility] [place] [facility] [address] [id number] [place] [address]- 1308 10 Aug, 2010 [facility] [place] [facility] [address] [id number] [place] [address]- 4196 11 Jul, 2010 [facility] [place] [facility] [address] [id number] [place] [address]- 1810 18 Sep, 2009 [facility] [place] [facility] [address] [facility] [id number] [place] [address] 12 Jul, 2009 [facility] [place] [facility] [address] [id number] [place] [address] 14 Jun, 2009 [facility] [place] [facility] [address] [id number], [place] [address] 14 Jun, 2009 [facility] [place] [facility] [address] [id number] [place] [address] 02 May, 2009 [facility] [place] [facility] [address] [id number] [place] [address] 15 Apr, 2009 [facility] [place] [facility] [address] [id number], [place] [address] 15 Apr, 2009 [facility] [address] [id number], [place] [address] Apr, [facility] [address] [id number], [place] [address] Feb, [facility] [id number], [place] [address] Feb, [facility] [id number], [place] [address] Jan, [facility] [address] [facility] [id number], [place] [address] November, IMMUNIZATIONS No Known Immunizations SOCIAL HISTORY Never Assessed REASON FOR VISIT OB Referral PLAN OF CARE VITAL SIGNS MEDICATIONS Unknown Medications RESULTS No Results PROCEDURES No Known procedures INSTRUCTIONS MEDICATIONS ADMINISTERED No Known Medications MEDICAL (GENERAL) HISTORY Type Description Date Medical History Arthritis Surgical History cholecystectomy Surgical History wisdom teeth extraction Surgical History hysterectomy Hospitalization History child Hospitalization History colitis
--- OUTSIDE RECORDS SUMMARY | 2017-12-30 00:17 | XMS REPORT ---
Author Author LESLIE CELE [facility] Address [address] [place] [address] Care Team Providers Care Staple Side Laster Name Role Phone CELE NELSON Unavailable PROBLEMS Type Condition ICD9-CM Code KLM51-GV Code Onset Dates Condition Status SNOMED Code Problem Other chronic pain G89.29 Active 71068311 Problem Difficulty of mother performing R63.3 Active 062504605 Problem History of anxiety Z86.59 Active 964087042 Problem Menstrual migraine without status migrainosus, not intractable G43.829 Active 73798508 Problem Rheumatoid arthritis with positive rheumatoid factor, involving unspecified site M05.9 Active 775805865 Problem Insomnia, unspecified type G47.00 Active 868003219 ALLERGIES Substance Reaction Event Type Date Status Tylenol/Codeine #3 Unknown Drug Allergy Jun, Active Tramadol HCl vomiting Drug Allergy Jun, Active ENCOUNTERS Encounter Location Date Diagnosis [facility] [facility] [id number] [place] [address] 37613- 6820 Jan, [facility] [facility] [id number] [place] [address] 27514- 6744 Dec, [facility] [facility] [id number] [place] [address] 54313- 3954 Dec, Screening, deficiency anemia, iron Z13.0 [facility] [facility] [id number] [place] [address] 61903- 8028 Oct, Rheumatoid arthritis with positive rheumatoid factor, involving unspecified site M05.9 [place] [facility] [id number] [place] [address] 22329- 6498 Oct, Rheumatoid arthritis with positive rheumatoid factor, involving unspecified site M05.9 [place] [facility] [address] 31182- 3279 Oct, Closed nondisplaced fracture of third metatarsal bone of right foot with routine healing, subsequent encounter S92.334D ; Closed nondisplaced fracture of second metatarsal bone of right foot with routine healing, subsequent encounter S92.324D ; Closed nondisplaced fracture of phalanx of left great toe with routine healing, unspecified phalanx, subsequent encounter S92.405D and Other chronic pain G89.29 [facility] [facility] [id number] [place] [address] 25955- 5539 Oct, Closed nondisplaced fracture of third metatarsal [...] positive rheumatoid factor, involving unspecified site M05.9 [place] [address] [id number] [place] [address] 99432- 0937 Oct, [place] [address] [facility] [id number] [place] [address] 20128- 1534 Oct, Injury of finger of right hand, initial encounter S69.91XA and Closed displaced fracture of distal phalanx of right middle finger, initial encounter S62.632A [place] [address] [id number], [place] [address] 8774 Sep, Mastitis N61.0 and MRSA (methicillin resistant staph aureus ) culture positive Z22.322 [facility] [address] [id number], [place] [address] 1602 Sep, [place] [id number] [place] [address] 06879- 0729 Sep, Difficulty of mother performing R63.3 [place] [address] [id number], [place] [address] 5879 Sep, Acute mastitis of left breast N61.0 [facility] [id number] [place] [address] 70528 -7362 Sep, Abscess L02.91 [facility] [id number] [place] [address] 88338- 7697 Sep, [facility] [id number] [place] [address] 78484- 4213 Jun, [place] [id number] [place] [address] 69304- 6387 Jun, care, subsequent in second trimester Z34.82 ; Placenta previa in second trimester O44.02 ; Abnormal quad screen O28.0 ; History of delivery, currently O09.219 and 24 weeks gestation of Z3A.24 [place] [id number] [place] [address] 75933- 1064 May, Dental examination Z01.20 [place] [id number] [place] [address] 62377- 4309 08 May, 2017 History of delivery, currently O09.219 [place] [id number] [place] [address] 05066- 5543 07 May, 2017 [place] [id number] [place] [address] 36896- 0053 May, 20 weeks gestation of Z3A.20 ; care, subsequent in second trimester Z34.82 ; History of delivery, currently O09.219 and Abnormal quad screen O28.0 [place] [id number] [place] [address] 18738- 1182 Apr, Elevated blood sugar level R73.9 and Glucosuria R81 [place] [id number] [place] [address] 55377- 1033 Apr, Elevated blood sugar level R73.9 and Glucosuria R81 [place] [id number] [place] [address] 05525- 2969 Apr, Elevated blood sugar level R73.9 [place] [id number] [place] [address] 61984- 1290 Apr, [place] [id number] [place] [address] 40884- 9315 Apr, 16 weeks gestation of Z3A.16 ; care, subsequent in second trimester Z34.82 ; Encounter for immunization Z23 and Glucosuria R81 [place] [id number] [place] [address] 20215- 9172 Mar, 12 weeks gestation of Z3A.[address] 59991- 4637 Feb, [place] [address] 66062- 1110 Feb, care, subsequent in first trimester Z34.81 and 8 weeks gestation of Z3A.08 [place] [id number] [place] [address] 43249- 9688 Jan, [place] [id number] [place] [address] 67825- 7773 Jul, Encounter for test, result unknown Z32.00 [facility] [address] 92511- 0821 Jun, control counseling Z30.9 and Insomnia, unspecified type G47.00 [place] [id number] [place] [address] 44466- 3519 Sep, Encounter for test Z32.00 [facility] [address] 51715- 2037 Jul, [facility] [address] 15148- 8078 Jul, Well woman exam Z01.419 ; Encounter for screening for malignant neoplasm of cervix Z12.4 ; Vaginal discharge N89.8 ; Routine screening for STI (sexually transmitted infection) Z11.3 ; Encounter for prescription for transdermal contraceptive Z30.49 ; Nausea with vomiting, unspecified R11.2 ; Menstrual migraine without status migrainosus, not intractable G43.829 and History of anxiety Z86.59 [facility] [id number] [place] [address] 73652- 7105 Jun, Encounter for surveillance of transdermal contraceptive Z30.49 and Sauceda F48.9 [facility] [id number] [place] [address] 53313- 2029 14 Oct, 2014 [facility] [id number] [place] [address] 01700- 1032 Oct, [facility] [id number] [place] [address] 81659- 9116 Jul, [facility] [id number] [place] [address] 94383- 2916 Jul, [facility] [id number] [place] [address] 61951- 7746 Jul, [facility] [id number] [place] [address] 68390- 4678 Jul, [facility] [id number] [place] [address] 44417- 8951 Jul, [facility] [id number] [place] [address] 58950- 8162 Jul, [facility] [id number] [place] [address] 67251- 9956 Jun, [facility] [id number] [place] [address] 42606- 4993 Jun, [facility] [id number] [place] [address] 35789- 7632 May, [facility] [id number] [place] [address] 23863- 5838 May, [facility] [id number] [place] [address] 33002- 9359 May, [facility] [place] [facility] [address] [id number] [place] [address]- 9148 May, [facility] [place] [facility] [address] [id number] [place] [address]- 5768 Feb, [facility] [place] [facility] [address] [id number] [place] [address]- 3874 Feb, [facility] [place] [facility] [address] [id number] [place] [address]- 2966 Feb, [facility] [place] [facility] [address] [id number] [place] [address]- 2405 Feb, [facility] [place] [facility] [address] [id number] [place] [address]- 9211 Oct, [facility] [place] [facility] [address] [id number] [place] [address]- 4464 Oct, [facility] [place] [facility] [address] [id number] [place] [address]- 2677 Sep, [facility] [place] [facility] [address] [id number] [place] [address]- 6013 Sep, [facility] [place] [facility] [address] [facility] [id number] [place] [address]- 8835 Sep, [facility] [place] [facility] [address] [id number] [place] [address]- 3220 Sep, [facility] [place] [facility] [address] [id number] [place] [address]- 2944 Aug, [facility] [place] [facility] [address] [id number] [place] [address]- 7462 Aug, [facility] [place] [facility] [address] [id number] [place] 0942 Jul, [facility] [place] [facility] [address] [facility] [id number] [place] [address]- 8956 Jul, [facility] [place] [facility] [address] [id number] [place] [address]- 0519 Jun, [facility] [place] [facility] [address] [id number] [place] [address]- 4372 Jun, [facility] [place] [facility] [address] [id number] [place] [address]- 4287 Jun, [facility] [place] [facility] [address] [id number] [place] [address]- 5953 Jun, [facility] [place] [facility] [address] [id number] [place] [address]- 0553 Jun, [facility] [place] [facility] [address] [id number] [place] [address]- 9523 May, [facility] [place] [facility] [address] [id number] [place] [address]- 9223 May, [facility] [place] [facility] [address] [id number] [place] [address]- 2330 May, [facility] [place] [facility] [address] [id number] [place] [address]- 9764 May, [facility] [place] [facility] [address] [id number] [place] [address]- 8828 Apr, [facility] [place] [facility] [address] [id number] [place] [address]- 1348 Apr, [facility] [place] [facility] [address] [id number] [place] [address]- 5687 Apr, [facility] [place] [facility] [address] [id number] [place] [address]- 9002 Feb, [facility] [place] [facility] [address] [id number] [place] [address]- 3704 Jan, [facility] [place] [facility] [address] [id number] [place] [address]- 9845 Aug, [facility] [place] [facility] [address] [id number] [place] [address]- 4608 20 Aug, 2012 [facility] [address] [id number] [place] [address]- 5969 12 Aug, 2012 [facility] [address] [id number] [place] [address]- 7878 08 Aug, 2012 [facility] [address] [id number] [place] [address]- 1765 07 Aug, 2012 [facility] [address] [id number] [place] [address]- 4045 04 Aug, 2012 [facility] [address] [id number] [place] [address]- 8706 Jul, [facility] [address] [id number] [place] [address]- 2130 Jul, [facility] [address] [id number], [place] [address]- 4792 Jul, [facility] [address] [id number] [place] [address]- 1965 Jul, [facility] [address] [facility] [id number] [place] [address]- 1857 Jul, [facility] [address] [facility] [id number] [place] [address]- 9466 Jul, [facility] [address] [id number], [place] [address]- 5329 Jul, [facility] [address] [id number], [place] [address]- 3231 Jun, [facility] [address] [id number] [place] [address]- 9178 Jun, [facility] [address] [id number], [place] [address]- 9377 Jun, [facility] [address] [facility] [id number] [place] [address]- 5888 Jun, [facility] [place] [facility] [address] [id number] [place] [address]- 8681 Jun, [facility] [place] [facility] [address] [id number] [place] [address]- 4871 Jun, [facility] [place] [facility] [address] [id number] [place] [address]- 1453 Jun, [facility] [place] [facility] [address] [id number] [place] [address]- 4043 Jun, [facility] [place] [facility] [address] [id number] [place] [address]- 1356 Jun, [facility] [place] [facility] [address] [id number] [place] [address]- 9522 Jun, [facility] [place] [facility] [address] [id number] [place] [address]- 3849 May, [facility] [place] [facility] [address] [id number] [place] [address]- 3342 May, [facility] [place] [facility] [address] [id number] [place] [address]- 6505 May, [facility] [place] [facility] [address] [id number] [place] [address]- 1181 May, [facility] [place] [facility] [address] [id number] [place] [address]- 6214 May, [facility] [place] [facility] [address] [id number] [place] [address]- 9423 Apr, [facility] [place] [facility] [address] [id number] [place] [address]- 5124 Apr, [facility] [place] [facility] [address] [id number] [place] [address]- 4935 Apr, [facility] [place] [facility] [address] [id number] [place] [address]- 4433 Apr, [facility] [place] [facility] [address] [id number] [place] [address]- 3250 Apr, [facility] [place] [facility] [address] [id number] [place] [address]- 6413 25 Mar, 2012 [facility] [place] [facility] [address] [id number] [place] [address]- 9146 Mar, [facility] [place] [facility] [address] [id number] [place] [address]- 3374 Mar, [facility] [place] [facility] [address] [id number] [place] [address]- 3502 07 Mar, 2012 [facility] [place] [facility] [address] [id number] [place] [address]- 6191 Mar, [facility] [place] [facility] [address] [id number] [place] [address]- 2447 Mar, [facility] [place] [facility] [address] [id number] [place] [address]- 5841 Feb, [facility] [place] [facility] [address] [id number] [place] [address]- 6264 Feb, [facility] [place] [facility] [address] [id number] [place] [address]- 7469 Feb, [facility] [place] [facility] [address] [id number] [place] [address]- 4443 Feb, [facility] [place] [facility] [address] [id number], [place] [address]- 0575 Feb, [facility] [place] [facility] [address] [id number], [place] [address]- 7569 Jan, [facility] [place] [facility] [address] [id number] [place] [address]- 4021 Jan, [facility] [place] [facility] [address] [id number] [place] [address]- 8645 Jan, [facility] [place] [facility] [address] [id number] [place] [address]- 9333 Jan, [facility] [place] [facility] [address] [id number] [place] [address]- 7396 07 Jan, 2012 [facility] [place] [facility] [address] [id number] [place] [address]- 8086 Jan, [facility] [place] [facility] [address] [id number] [place] [address]- 6587 Dec, [facility] [place] [facility] [address] [id number] [place] [address]- 3043 Dec, [facility] [place] [facility] [address] [id number] [place] [address]- 9382 Dec, [facility] [place] [facility] [address] [id number] [place] [address]- 8372 Dec, [facility] [place] [facility] [address] [id number] [place] [address]- 2165 Dec, [facility] [place] [facility] [address] [id number] [place] [address]- 5421 Dec, [facility] [place] [facility] [address] [id number] [place] [address]- 4328 Dec, [facility] [place] [facility] [address] [id number] [place] [address]- 0905 November, [facility] [place] [facility] [address] [id number] [place] [address]- 0237 November, [facility] [place] [facility] [address] [id number] [place] [address]- 6175 November, [facility] [place] [facility] [address] [id number] [place] [address]- 8706 Oct, [facility] [place] [facility] [address] [id number] [place] [address]- 3003 Oct, [facility] [place] [facility] [address] [id number] [place] [address]- 5736 Oct, [facility] [place] [facility] [address] [id number] [place] [address]- 6505 Sep, [facility] [place] [facility] [address] [id number] [place] [address]- 0223 Sep, [facility] [place] [facility] [address] [id number] [place] [address]- 5862 Sep, [facility] [place] [facility] [address] [id number] [place] [address]- 6616 Sep, [facility] [place] [facility] [address] [id number] [place] [address]- 4365 Sep, [facility] [place] [facility] [address] [id number] [place] [address]- 8047 Aug, [facility] [place] [facility] [address] [id number] [place] [address]- 0482 Aug, [facility] [place] [facility] [address] [id number] [place] [address]- 5011 Aug, [facility] [place] [facility] [address] [id number] [place] [address]- 6140 Aug, [facility] [place] [facility] [address] [id number] [place] [address]- 5024 Jul, [facility] [place] [facility] [address] [id number] [place] [address]- 9855 Jul, [facility] [place] [facility] [address] [id number] [place] [address]- 2103 Jul, [facility] [place] [facility] [address] [id number] [place] [address]- 2615 Jul, [facility] [place] [facility] [address] [id number] [place] [address]- 9407 Jul, [facility] [place] [facility] [address] [id number] [place] [address]- 1904 Jul, [facility] [place] [facility] [address] [id number] [place] [address]- 8380 Jul, [facility] [place] [facility] [address] [id number], [place] [address]- 6718 10 Jul, 2011 [facility] [address] [id number] [place] [address]- 3464 16 Jun, 2011 [facility] [place] [facility] [address] [id number] [place] [address]- 4343 13 Jun, 2011 [facility] [address] [facility] [id number] [place] [address]- 0607 12 Jun, 2011 [facility] [place] [facility] [address] [id number] [place] [address]- 7969 06 Jun, 2011 [facility] [address] [id number] [place] [address]- 6029 14 May, 2011 [facility] [place] [facility] [address] [facility] [id number] [place] [address]- 8271 31 Apr, 2011 [facility] [id number] [place] [address]- 5671 13 Mar, 2011 [facility] [place] [facility] [address] [id number] [place] [address]- 1969 16 Dec, 2010 [facility] [address] [id number] [place] [address]- 6210 10 Aug, 2010 [facility] [place] [facility] [address] [id number] [place] [address]- 9921 11 Jul, 2010 [facility] [address] [id number] [place] [address]- 5690 18 Sep, 2009 [facility] [place] [facility] [address] [id number], [place] [address]- 2361 12 Jul, 2009 [facility] [place] [facility] [address] [id number] [place] [address]- 3237 14 Jun, 2009 [facility] [place] [facility] [address] [facility] [id number] [place] [address] 14 Jun, 2009 [facility] [place] [facility] [address] [id number], [place] [address] 02 May, 2009 [facility] [facility] [address] [id number] [address] Apr, [facility] [id number], [place] [address] Apr, [facility] [id number] [address] Apr, [facility] [address] [id number] [address] Feb, [facility] [address] [id number] [address] Feb, [facility] [id number] [address] Jan, [facility] [id number] [address] November, IMMUNIZATIONS No Known Immunizations SOCIAL HISTORY Never Assessed REASON FOR VISIT OB f/u- 4 week f/u--[place]N PLAN OF CARE Activity Details Follow Up 4 Weeks Reason: VITAL SIGNS Height 64 in 2017-06-18 Weight 122.6 lbs 2017-06-18 Temperature 98.2 degrees Fahrenheit 2017-06-18 Heart Rate 72 bpm 2017-06-18 Respiratory Rate 18 2017-06-18 BMI 21.044 kg/m2 2017-06-18 Blood pressure systolic 122 mmHg 2017-06-18 Blood pressure diastolic 70 mmHg 2017-06-18 MEDICATIONS Medication Instructions Dosage Frequency Start Date End Date Duration Status [place] 250 MG/ML Intramuscular once weekly 1 ml May, Not- Taking One Daily Active Neurontin 300 MG Orally 2 times a day 1 capsule 12h Feb, Not -Taking Hydrocodone-Acetaminophen 5-325 mg take 1 tablet by oral route every 4 hours as needed for pain May, Not-Taking Flexeril Not-Taking Naproxen 250 MG Orally Twice a day 1 tablet 12h Not-Taking RESULTS Name Result Date Reference Range UA OB DIP (IN HOUSE) 2017-06-18 Glucose negative Protein negative PROCEDURES Procedure Date Ordered Result Body Site URINE-NO MICRO Jun 18, 2017 INSTRUCTIONS MEDICATIONS ADMINISTERED No Known Medications MEDICAL (GENERAL) HISTORY Type Description Date Medical History Arthritis Surgical History cholecystectomy Surgical History wisdom teeth extraction Surgical History hysterectomy Hospitalization History child Hospitalization History colitis
--- OUTSIDE RECORDS SUMMARY | 2017-12-30 00:19 | XMS REPORT | Continuity of Care Document ---
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 Document Registration [id number] 02/03/2012 04:25:00 Document Registration [id number] 12/16/2011 23:13:00 Document Registration [id number] 11/27/2011 15:21:00 Document Registration [id number] 09/12/2011 13:32:00 Document Registration [id number] 08/28/2011 15:02:00 Document Registration [id number] 08/22/2010 15:51:00 Document Registration [id number] 04/11/2010 00:51:00 Document Registration [id number] 03/22/2010 16:56:00 Document Registration [id number] 08/02/2009 11:57:00 Document Registration [id number] 02/07/2009 10:51:00 Document Registration [id number] 05/07/2017 08:06:00 Document Registration [id number] 02/23/2017 23:06:00 Document Registration [id number] 04/22/2017 22:07:00 Document Registration [id number] 12/13/2017 14:00:00 12/13/2017 23:59:59 CLS Outpatient [address] [facility] [id number] 05/06/2017 14:00:00 Document Registration [id number] 04/19/2017 15:00:00 Document Registration
--- NOTE | 2017-12-30 01:02 | ED Upper Extremity ---
General Chief Complaint: Upper Extremity Stated Complaint: SWOLLEN FINGER 1 MONTH POST SURG Nursing Triage Note: PT PRESENTS TO ER WITH COMPLAINT OF RIGHT MIDDLE FINGER PAIN. STATES SHE HAD A PIN REMOVED FROM FINGER ABOUT A WEEK AND A HALF AGO. Nursing Sepsis Screen: No Definite Risk Source: patient Exam Limitations: no limitations History of Present Illness Date Seen by Provider: Dec 30, 2017 Time Seen by Provider: 00:50 Initial Comments The patient resents to the ER by private conveyance with a chief complaint that her finger that she had broke about 2-1/2 months ago is still having some pain. She had a pin removed 2 weeks ago area and there is a little bit of swelling at the base of her distal phalanx it's on her right hand third digit. She has a follow-up appointment with Drs. Mooney orthopedic surgeon in 1 day but she just cannot take the pain any longer. She's been using ice, Tylenol, ibuprofen as well as last week she use the rest of her opiate pain medicine. She says the opiates helped. She has not been elevating it. She's not having any redness discoloration or loss of function of that hand or finger. She's had no fevers chills nausea vomiting or sweats. Allergies and Home Medications Allergies Coded Allergies: cephalexin (Verified Allergy, Severe, RASH, Pt has received Ampicilin in the past, 08/12/17) codeine (Verified Allergy, Mild, HIVES, FLUSHING, BURNING FEELING, 08/13/17 ) Patient has received Morphine, Hydromorphone and Lortab on previous visits without issue tramadol (Verified Adverse Reaction, Unknown, VOMITING, 07/28/16) Home Medications Hydrocodone/Acetaminophen 1 Each Tablet, 1 EACH PO Q6H PRN for PAIN-SEVERE Prescribed by: ELIUD GALEAS on 10/25/17 1831 Sulfamethoxazole/Trimethoprim 1 Each Tablet, 1 EACH PO BID Prescribed by: JAKE ROTHMAN on 12/14/17 2230 Patient Home Medication List Home Medication List Reviewed: Yes Constitutional: No chills, No diaphoresis EENTM: No ear pain, No eye pain Respiratory: No cough, No short of breath Cardiovascular: No chest pain, No palpitations Gastrointestinal: No abdominal pain, No constipation, No nausea, No vomiting Genitourinary: No discharge, No dysuria : No Musculoskeletal: No back pain, No joint pain Skin: No pruritus, No rash Past Uytqpfv-Sbsgqy-Zrmrqj Hx Patient Social History Alcohol Use: Denies Use Recreational Drug Use: No Smoking Status: Never a Smoker 2nd Hand Smoke Exposure: No Recent Foreign Travel: No Contact w/Someone Who Travel: No Recent Infectious Disease Expo: No Recent Hopitalizations: No Immunizations Up To Date Tetanus Booster (TDap): Unknown PED Vaccines UTD: Yes Date of Influenza Vaccine: Apr 19, 2017 Seasonal Allergies Seasonal Allergies: No Past Medical History Surgeries: Yes (FINGER REPAIR W/ PIN PLACEMENT) Section, Gallbladder, Hysterectomy, Orthopedic Respiratory: No Cardiac: No Neurological: Yes Headaches /Migraines 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 Disorders: No 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 Sexually Transmitted Disease: No HIV/AIDS: No Genitourinary: No Gastrointestinal: No Musculoskeletal: Yes Arthritis, Chronic Back Pain Endocrine: No HEENT: No Cancer: No Psychosocial: Yes Anxiety Integumentary: Yes ("pin in finger removed 12/12/17") Recent Skin Changes Blood Disorders: No Adverse Reaction/Blood Tranf: No Family Medical History Arthritis 19 FATHER Hypertension 19 FATHER No Pertinent Family Hx Physical Exam Vital Signs Vital Signs - First Documented 12/30/17 00:16 Temp 96.7 Pulse 77 Resp 20 B/P (MAP) 128/78 (95) Pulse Ox 100 O2 Delivery Room Air Capillary Refill : Less Than 3 Seconds General Appearance: WD/WN, no apparent distress HEENT: PERRL/EOMI, pharynx normal Neck: non-tender, normal inspection Cardiovascular: normal peripheral pulses, regular rate, rhythm Respiratory: no respiratory distress, no accessory muscle use Wrist: Yes normal inspection, Yes non-tender, Yes no evidence of injury, Yes normal ROM Hand: normal inspection, non-tender, no evidence of injury, normal ROM, Right Neurologic/Psychiatric: alert, oriented x 3 Skin: normal color, warm/dry Progress/Results/Core Measures Results/Orders Vital Signs/I&O 12/30/17 00:16 Temp 96.7 Pulse 77 Resp 20 B/P (MAP) 128/78 (95) Pulse Ox 100 O2 Delivery Room Air Blood Pressure Mean: 95 Progress Progress Note : Time: 01:00 Progress Note No evidence of wound infection. Looks like she just in some pain medicine to tide her over to see gets to Drs. Mooney. We encouraged her to continue using the Tylenol, NSAIDs, ice and elevation. We have counseled her that this is the expected course of there will be some pain involved and this is not unexpected. Departure Impression Primary Impression: Finger pain, right Disposition: HOME, SELF-CARE Condition: Stable Departure-Patient Inst. Decision time for Depature: 01:01 Referrals: CELE NELSON MD (PCP/Family) Primary Care Physician Patient Instructions: Finger Fracture (DC) Add. Discharge Instructions: Ice, heat, elevation, Tylenol 1000 g every 8 hours and ibuprofen 800 mg every 8 hours. If you still have breakthrough pain and she absolutely cannot stand despite all of these interventions then you can take one tablet of the hydrocodone every 6 hours as needed. All discharge instructions reviewed with patient and/or family. Voiced understanding. Scripts Hydrocodone Bit/Acetaminophen (Hydrocodone/Acetaminophen 5/325mg Tablet) 1 Tab Tab 1 EACH PO Q6H PRN for BREAKTHROUGH PAIN, #10 TAB 0 Refills Prov: JAKE ROTHMAN 12/30/17 Copy Copies To 1: PHIL MOONEY MD Copies To 2: NORMA HAGEN DO JAKE ROTHMAN Dec 30, 2017 01:02
[2017-12-30] MEDS ORDERED: ACHD5005 PO (01:03)
[2017-12-30 01:10] VITALS: BP 128/78
== END 2017-12-30 01:10 | disposition home or self-care (01) ==
LOC: EDUNIT# 00:09 → ER 00:11
DX: M79.644 Pain in right finger(s) (principal); G43.909 Migraine, unspecified, not intractable, without status migrainosus; F41.9 Anxiety disorder, unspecified; Z87.42 Personal history of other diseases of the female genital tract; Z87.59 Personal history of other complications of pregnancy, childbirth and the puerperium; Z90.710 Acquired absence of both cervix and uterus; Z88.6 Allergy status to analgesic agent; Z88.1 Allergy status to other antibiotic agents; Z98.890 Other specified postprocedural states
CPT/HCPCS: 99282

== ENCOUNTER → 2018-01-22 | Outpatient (CLI) | payer MEDICAID ==
[~2018-01-22] MED LIST changes: -LABE200T3 PO; +LABE200T7 PO; +NAPR-1071 PO; +OMEP40CA36 PO
--- NOTE | 2018-01-22 16:00 | Diagnostic Imaging Report ---
PROCEDURE: US Non-ob pelvis comp/trans. TECHNIQUE: Multiple realtime grayscale images were obtained of the pelvis in various projections endovaginally. Transabdominal imaging was also performed. INDICATION: Pelvic pain and vaginal bleeding. Patient is status post hysterectomy in July 2017. FINDINGS: The uterus is surgically absent. The right ovary measures 1.8 x 1.7 x 3.3 cm. There is a questionable solid mass involving the right ovary measuring 1.7 x 1.0 x 1.5 cm. This does demonstrate internal vascularity. There are small follicles on the right ovary as well. Left ovary was not visualized. No free fluid is seen. IMPRESSION: 1. Status post hysterectomy. 2. Findings suspicious for a solid mass involving the right ovary 1.7 cm in size. No other abnormality is detected. Dictated by: Dictated on workstation # [id number]
== END ==
LOC: RAD 13:54
PROVIDERS: ATTEND Family Medicine
DX: N93.9 Abnormal uterine and vaginal bleeding, unspecified (principal); Z90.710 Acquired absence of both cervix and uterus
CPT/HCPCS: 76830; 76856

== ENCOUNTER 2018-02-24 22:40 | Emergency (ER) | payer MEDICAID, OTHER ==
[~2018-02-24] VITALS: Ht 162.6 cm; Wt 52.2 kg
[~2018-02-24 22:40] MED LIST changes: -NAPR-1071 PO; -OMEP40CA36 PO
--- OUTSIDE RECORDS SUMMARY | 2018-02-24 22:46 | XMS REPORT ---
Author Author LESLIE CELE [facility] Address [address] [place] [address] Care Team Providers Care Nanoelectronics Engineer Name Role Phone LESLIEALBERTO REIDHANY Unavailable PROBLEMS Type Condition ICD9-CM Code [id number] Code Onset Dates Condition Status SNOMED Code Problem Menstrual migraine without status migrainosus, not intractable G43.829 Active 57125786 Problem Vaginal bleeding N93.9 Active 462933252 Problem Other chronic pain G89.29 Active 46371254 Problem Insomnia, unspecified type G47.00 Active 111405226 Problem History of anxiety Z86.59 Active 093121502 Problem Difficulty of mother performing R63.3 Active 603698618 Problem Rheumatoid arthritis with positive rheumatoid factor, involving unspecified site M05.9 Active 797010480 ALLERGIES No Information ENCOUNTERS Encounter Location Date Diagnosis [facility] [id number] [place] [address] 59979- 4774 Jan, [facility] [facility] [id number] [place] [address] 33832- 7783 Jan, [facility] [id number] [place] [address] 10057- 7508 Jan, [facility] [id number] [place] [address] 80948- 7130 Jan, [facility] [id number] [place] [address] 37869- 2566 Dec, Pelvic pain R10.2 and Vaginal bleeding N93.9 [facility] [address] [address]- 1739 Dec, [facility] [id number] [place] [address] 21813- 1907 Dec, [place] [address], [place] [address] Dec, Screening, deficiency anemia, iron Z13.0 [facility] [id number] [place] [address] 78659- 3912 Oct, Rheumatoid arthritis with positive rheumatoid factor, involving unspecified site M05.9 [facility] [id number] [place] [address] 23501- 3393 Oct, Rheumatoid arthritis with positive rheumatoid factor, involving unspecified site M05.9 [facility] [id number] [place] [address] 66709- 4635 Oct, Closed nondisplaced fracture of third metatarsal bone of right foot with routine healing, subsequent encounter S92.334D ; Closed nondisplaced fracture of second metatarsal bone of right foot with routine healing, subsequent encounter S92.324D ; Closed nondisplaced fracture of phalanx of left great toe with routine healing, unspecified phalanx, subsequent encounter S92.405D and Other chronic pain G89.29 [facility] [id number] [place] [address] 66446- 2966 Oct, Closed nondisplaced fracture of third metatarsal [...] positive rheumatoid factor, involving unspecified site M05.9 [facility] [id number] [place] [address] 67408- 6105 Oct, [facility] [id number] [place] [address] 18990- 2912 Oct, Injury of finger of right hand, initial encounter S69.91XA and Closed displaced fracture of distal phalanx of right middle finger, initial encounter S62.632A [facility] [id number], [place] [address] 8466 Sep, Mastitis N61.0 and MRSA (methicillin resistant staph aureus ) culture positive Z22.322 [facility] [address], [place] [address] 8450 Sep, [facility] [address], [place] [address]- 3029 Sep, Difficulty of mother performing R63.3 [place] [address], [place] [address] 4210 Sep, Acute mastitis of left breast N61.0 [facility] [address] [address] Sep, Abscess L02.91 [facility] [address] [address]- 7540 Sep, [facility] [address] [address]- 2389 Jun, [facility] [facility] [address] [address]- 6684 Jun, care, subsequent in second trimester Z34.82 ; Placenta previa in second trimester O44.02 ; Abnormal quad screen O28.0 ; History of delivery, currently O09.219 and 24 weeks gestation of Z3A.24 [place] [address], [place] [address]- 5096 16 May, 2017 Dental examination Z01.20 [facility] [id number], [place] [address]- 9449 May, History of delivery, currently O09.219 [place] [id number] [place] [address] 77773- 9653 07 May, 2017 [facility] [id number], [place] [address]- 9522 May, 20 weeks gestation of Z3A.20 ; care, subsequent in second trimester Z34.82 ; History of delivery, currently O09.219 and Abnormal quad screen O28.0 [facility] [id number] [place] [address] 51560- 9634 Apr, Elevated blood sugar level R73.9 and Glucosuria R81 [facility] [id number] [place] [address] 97527- 4236 Apr, Elevated blood sugar level R73.9 and Glucosuria R81 [facility] [address] 42021- 2904 Apr, Elevated blood sugar level R73.9 [facility] [address] 62915- 2337 Apr, [facility] [id number] [place] [address] 64466- 6469 Apr, 16 weeks gestation of Z3A.16 ; care, subsequent in second trimester Z34.82 ; Encounter for immunization Z23 and Glucosuria R81 [facility] [id number] [place] [address] 98887- 9828 Mar, 12 weeks gestation of Z3A.12 [facility] [id number] [place] [address] 53523- 8938 Feb, [facility] [id number] [place] [address] 24289- 1601 Feb, care, subsequent in first trimester Z34.81 and 8 weeks gestation of Z3A.08 [facility] [id number] [place] [address] 71057- 6954 Jan, [facility] [facility] [address] 49372- 3833 Jul, Encounter for test, result unknown Z32.00 [facility] [id number] [place] [address] 56559- 1704 Jun, control counseling Z30.9 and Insomnia, unspecified type G47.00 [facility] [id number] [place] [address] 42095- 4453 Sep, Encounter for test Z32.00 [facility] [id number] [place] [address] 27137- 3426 Jul, [facility] [address] 66276- 6468 Jul, Well woman exam Z01.419 ; Encounter for screening for malignant neoplasm of cervix Z12.4 ; Vaginal discharge N89.8 ; Routine screening for STI (sexually transmitted infection) Z11.3 ; Encounter for prescription for transdermal contraceptive Z30.49 ; Nausea with vomiting, unspecified R11.2 ; Menstrual migraine without status migrainosus, not intractable G43.829 and History of anxiety Z86.59 [place] [address] 66455- 4809 Jun, Encounter for surveillance of transdermal contraceptive Z30.49 and Sauceda F48.9 [facility] [id number] [place] [address] 33679- 9772 Oct, [facility] [id number] [place] [address] 13154- 8296 Oct, [facility] [id number] [place] [address] 74337- 7843 Jul, [facility] [id number] [place] [address] 80590- 8450 Jul, [facility] [id number] [place] [address] 45160- 4665 Jul, [facility] [address] 59478- 9185 Jul, [facility] [id number] [place] [address] 08443- 9599 Jul, [facility] [address] 63968- 3310 Jul, [facility] [place] [facility] [address] [id number] [place] 6226 Jun, [facility] [place] [facility] [address] [id number] [place] [address]- 6446 Jun, [facility] [place] [facility] [address] [id number] [place] [address]- 3372 May, [facility] [place] [facility] [address] [id number] [place] [address]- 0661 May, [facility] [place] [facility] [address] [id number] [place] [address]- 9734 May, [facility] [place] [facility] [address] [id number] [place] [address]- 3079 May, [facility] [place] [facility] [address] [id number] [place] [address]- 5608 Feb, [facility] [place] [facility] [address] [id number] [place] [address]- 3574 Feb, [facility] [place] [facility] [address] [id number] [place] [address]- 7548 Feb, [facility] [place] [facility] [address] [id number] [place] [address]- 7649 Feb, [facility] [place] [facility] [address] [id number] [place] [address]- 6501 Oct, [facility] [place] [facility] [address] [id number] [place] [address]- 5636 Oct, [facility] [place] [facility] [address] [id number] [place] [address]- 2722 Sep, [facility] [place] [facility] [address] [id number] [place] [address]- 5389 Sep, [facility] [place] [facility] [address] [id number] [place] [address]- 3473 Sep, [facility] [place] [facility] [address] [id number] [place] [address] 2546 Sep, [facility] [address] [id number] [place] [address]- 2938 Aug, [facility] [place] [facility] [address] [id number] [place] [address]- 2496 Aug, [facility] [place] [facility] [address] [id number] [place] [address]- 1013 Jul, [facility] [place] [facility] [address] [id number] [place] [address]- 8864 Jul, [facility] [place] [facility] [address] [id number] [place] [address]- 4431 Jun, [facility] [place] [facility] [address] [id number] [place] [address]- 8542 Jun, [facility] [place] [facility] [address] [id number] [place] [address]- 3054 Jun, [facility] [address] [id number] [place] [address]- 6406 Jun, [facility] [place] [facility] [address] [id number] [place] [address]- 4573 Jun, [facility] [address] [facility] [id number] [place] 2405 May, [facility] [place] [facility] [address] [id number] [place] [address]- 9928 May, [facility] [place] [facility] [address] [id number] [place] [address]- 2731 May, [facility] [place] [facility] [address] [id number] [place] [address]- 0037 May, [facility] [place] [facility] [address] [id number] [place] [address]- 2546 Apr, [facility] [place] [facility] [address] [id number] [place] [address]- 4828 Apr, [facility] [address] [id number] [place] [address]- 5698 Apr, [facility] [place] [facility] [address] [id number] [place] [address]- 5089 Feb, [facility] [place] [facility] [address] [id number] [place] [address]- 5004 Jan, [facility] [place] [facility] [address] [id number] [place] [address]- 2728 Aug, [facility] [place] [facility] [address] [id number] [place] [address]- 2309 Aug, [facility] [place] [facility] [address] [id number] [place] [address]- 0220 Aug, [facility] [place] [facility] [address] [id number] [place] [address]- 6601 Aug, [facility] [place] [facility] [address] [id number] [place] [address]- 8129 Aug, [facility] [place] [facility] [address] [id number] [place] [address]- 1581 Aug, [facility] [place] [facility] [address] [id number] [place] [address]- 5959 Jul, [facility] [place] [facility] [address] [id number] [place] [address]- 8260 Jul, [facility] [place] [facility] [address] [id number] [place] [address]- 2315 Jul, [facility] [place] [facility] [address] [id number] [place] [address]- 9088 Jul, [facility] [place] [facility] [address] [id number] [place] [address]- 3547 Jul, [facility] [place] [facility] [address] [id number] [place] [address]- 7790 Jul, [facility] [place] [facility] [address] [id number] [place] [address]- 2601 08 Jul, 2012 [facility] [address] [id number] [place] [address]- 1719 Jun, [facility] [place] [facility] [address] [id number] [place] [address]- 3156 Jun, [facility] [address] [id number] [place] [address]- 7766 Jun, [facility] [address] [id number] [place] [address]- 6541 Jun, [facility] [address] [id number] [place] [address]- 7782 Jun, [facility] [address] [id number] [place] [address]- 3872 Jun, [facility] [address] [id number] [place] [address]- 8760 Jun, [facility] [address] [id number] [place] [address]- 6917 Jun, [facility] [address] [id number] [place] [address]- 8573 Jun, [facility] [address] [id number] [place] [address]- 5011 Jun, [facility] [place] [facility] [address] [id number] [place] [address]- 3090 May, [facility] [address] [id number] [place] [address]- 1083 May, [facility] [place] [facility] [address] [id number] [place] [address]- 5321 May, [facility] [place] [facility] [address] [id number] [place] [address]- 1847 May, [facility] [place] [facility] [address] [id number] [place] [address]- 4522 May, [facility] [place] [facility] [address] [id number] [place] [address]- 7371 Apr, [facility] [place] [facility] [address] [id number] [place] [address]- 9616 Apr, [facility] [place] [facility] [address] [id number] [place] [address]- 1978 Apr, [facility] [place] [facility] [address] [id number] [place] [address]- 9751 Apr, [facility] [place] [facility] [address] [id number] [place] [address]- 5747 Apr, [facility] [place] [facility] [address] [id number] [place] [address]- 8565 25 Mar, 2012 [facility] [place] [facility] [address] [id number] [place] [address]- 3833 20 Mar, 2012 [facility] [place] [facility] [address] [id number] [place] [address]- 7321 12 Mar, 2012 [facility] [place] [facility] [address] [id number] [place] [address]- 2190 07 Mar, 2012 [facility] [place] [facility] [address] [id number], [place] [address]- 9024 06 Mar, 2012 [facility] [place] [facility] [address] [id number], [place] [address]- 9294 05 Mar, 2012 [facility] [place] [facility] [address] [id number], [place] [address]- 9917 Feb, [facility] [place] [facility] [address] [id number] [place] [address]- 0001 Feb, [facility] [place] [facility] [address] [id number] [place] [address]- 3501 Feb, [facility] [place] [facility] [address] [id number], [place] [address]- 5706 Feb, [facility] [place] [facility] [address] [id number], [place] [address]- 0225 Feb, [facility] [place] [facility] [address] [id number] [place] [address]- 8900 Jan, [facility] [place] [facility] [address] [id number] [place] [address]- 6391 Jan, [facility] [place] [facility] [address] [id number] [place] [address]- 2795 Jan, [facility] [place] [facility] [address] [id number] [place] [address]- 5418 Jan, [facility] [place] [facility] [address] [id number] [place] [address]- 1225 Jan, [facility] [place] [facility] [address] [id number] [place] [address]- 4662 Jan, [facility] [place] [facility] [address] [id number] [place] [address]- 3083 Dec, [facility] [place] [facility] [address] [id number] [place] [address]- 3406 Dec, [facility] [place] [facility] [address] [id number] [place] [address]- 5533 Dec, [facility] [place] [facility] [address] [id number] [place] [address]- 6728 Dec, [facility] [place] [facility] [address] [id number] [place] [address]- 3484 Dec, [facility] [place] [facility] [address] [id number] [place] [address]- 1386 Dec, [facility] [place] [facility] [address] [id number] [place] [address]- 4058 Dec, [facility] [place] [facility] [address] [id number] [place] [address]- 1039 November, [facility] [place] [facility] [address] [id number] [place] [address]- 0597 November, [facility] [place] [facility] [address] [id number] [place] [address]- 1087 November, [facility] [place] [facility] [address] [id number] [place] [address]- 5843 Oct, [facility] [place] [facility] [address] [id number] [place] [address]- 0657 Oct, [facility] [place] [facility] [address] [id number] [place] [address]- 0550 Oct, [facility] [place] [facility] [address] [id number] [place] [address]- 6908 Sep, [facility] [place] [facility] [address] [id number] [place] [address]- 2081 Sep, [facility] [place] [facility] [address] [id number] [place] [address]- 5834 Sep, [facility] [place] [facility] [address] [id number] [place] [address]- 6798 Sep, [facility] [place] [facility] [address] [id number] [place] [address]- 6064 Sep, [facility] [place] [facility] [address] [id number] [place] [address]- 0457 Aug, [facility] [place] [facility] [address] [id number] [place] [address]- 4615 Aug, [facility] [place] [facility] [address] [id number] [place] [address]- 1061 Aug, [facility] [place] [facility] [address] [id number] [place] [address]- 7022 Aug, [facility] [place] [facility] [address] [id number] [place] [address]- 3535 Jul, [facility] [place] [facility] [address] [id number] [place] [address]- 2440 Jul, [facility] [place] [facility] [address] [id number] [place] [address]- 3025 28 Jul, 2011 [facility] [place] [facility] [address] [id number] [place] [address]- 5647 Jul, [facility] [place] [facility] [address] [id number] [place] [address]- 6638 18 Jul, 2011 [facility] [place] [facility] [address] [id number] [place] [address]- 3672 12 Jul, 2011 [facility] [place] [facility] [address] [id number] [place] [address]- 9301 11 Jul, 2011 [facility] [place] [facility] [address] [id number] [place] [address]- 7801 10 Jul, 2011 [facility] [place] [facility] [address] [id number] [place] [address]- 1268 16 Jun, 2011 [facility] [place] [facility] [address] [id number] [place] [address]- 8782 Jun, [facility] [place] [facility] [address] [id number] [place] [address]- 6263 12 Jun, 2011 [facility] [place] [facility] [address] [id number] [place] [address]- 5739 06 Jun, 2011 [facility] [place] [facility] [address] [id number] [place] [address]- 1393 14 May, 2011 [facility] [place] [facility] [address] [id number] [place] [address]- 0978 31 Apr, 2011 [facility] [place] [facility] [address] [id number] [place] [address]- 3353 13 Mar, 2011 [facility] [place] [facility] [address] [id number] [place] [address]- 9674 16 Dec, 2010 [facility] [place] [facility] [address] [id number] [place] [address]- 4338 10 Aug, 2010 [facility] [place] [facility] [address] [id number] [place] [address]- 0598 11 Jul, 2010 [facility] [place] [facility] [id number] [address] Sep, [facility] [id number] [place] [address] Jul, [facility] [id number] [address] Jun, [facility] [id number] [place] [address] Jun, [facility] [id number] [address] May, [facility] [id number] [place] [address] Apr, [facility] [id number] [place] [address] Apr, [facility] [id number] [place] [address] Apr, [facility] [id number] [place] [address] Feb, [facility] [id number] [place] [address] Feb, [facility] [id number] [place] [address] Jan, [facility] [id number] [id number] November, IMMUNIZATIONS No Known Immunizations SOCIAL HISTORY Never Assessed REASON FOR VISIT Follow up foot fracture/pain PLAN OF CARE VITAL SIGNS MEDICATIONS Medication Instructions Dosage Frequency Start Date End Date Duration Status Neurontin 600 MG Orally Once a day 1 tablet before bedtime 24h Feb, 30 days Active Flexeril Not-Taking Hydrocodone-Acetaminophen 5-325 mg Orally every 8-12 hrs 1 tablet as needed Oct, Active One Daily Not-Taking Ibuprofen 800 MG Orally Three times a day 1 tablet with food or milk as needed 8h Not-Taking Amitriptyline HCl 25 MG Orally Once a day 1 tablet 24h Sep, 30 day(s) Not-Taking RESULTS No Results PROCEDURES No Known procedures INSTRUCTIONS MEDICATIONS ADMINISTERED No Known Medications MEDICAL (GENERAL) HISTORY Type Description Date Medical History Arthritis Surgical History cholecystectomy Surgical History wisdom teeth extraction Surgical History Partial hysterectomy 2017 Hospitalization History child Hospitalization History colitis
--- OUTSIDE RECORDS SUMMARY | 2018-02-24 22:46 | XMS REPORT ---
Author Author LESLIE CELE [facility] Address [address] [place] [address] Care Team Providers Care Switch Engineer Name Role Phone LESLIEALBERTO REIDHANY Unavailable PROBLEMS Type Condition ICD9-CM Code ZIY22-RJ Code Onset Dates Condition Status SNOMED Code Problem Menstrual migraine without status migrainosus, not intractable G43.829 Active 68536788 Problem Vaginal bleeding N93.9 Active 253530797 Problem Other chronic pain G89.29 Active 09548561 Problem Insomnia, unspecified type G47.00 Active 777734521 Problem History of anxiety Z86.59 Active 487526152 Problem Difficulty of mother performing R63.3 Active 715293221 Problem Rheumatoid arthritis with positive rheumatoid factor, involving unspecified site M05.9 Active [id number] ALLERGIES No Information ENCOUNTERS Encounter Location Date Diagnosis [facility] [id number] [place] [address] 63610- 1323 Jan, [place] [id number] [place] [address] 73388- 0910 Jan, [facility] [id number] [place] [address] 07667- 8411 Jan, [facility] [id number] [place] [address] 70727- 9960 Jan, [facility] [id number] [place] [address] 95193- 3484 Dec, Pelvic pain R10.2 and Vaginal bleeding N93.9 [facility] [address] [address]97- 0183 Dec, [facility] [id number] [place] [address] 91976- 8686 Dec, [place] [address], [place] [address] Dec, Screening, deficiency anemia, iron Z13.0 [facility] [id number] [place] [address] 83413- 9609 Oct, Rheumatoid arthritis with positive rheumatoid factor, involving unspecified site M05.9 [facility] [id number] [place] [address] 73511- 6434 Oct, Rheumatoid arthritis with positive rheumatoid factor, involving unspecified site M05.9 [place] [id number] [place] [address] 95797- 6295 Oct, Closed nondisplaced fracture of third metatarsal bone of right foot with routine healing, subsequent encounter S92.334D ; Closed nondisplaced fracture of second metatarsal bone of right foot with routine healing, subsequent encounter S92.324D ; Closed nondisplaced fracture of phalanx of left great toe with routine healing, unspecified phalanx, subsequent encounter S92.405D and Other chronic pain G89.29 [place] [id number] [place] [address] 88024- 6364 Oct, Closed nondisplaced fracture of third metatarsal [...] positive rheumatoid factor, involving unspecified site M05.9 [place] [place] [id number] [place] [address] 76775- 4849 Oct, [facility] [id number] [place] [address] 10286- 8703 Oct, Injury of finger of right hand, initial encounter S69.91XA and Closed displaced fracture of distal phalanx of right middle finger, initial encounter S62.632A [facility] [facility] [id number] [address] 2539 Sep, Mastitis N61.0 and MRSA (methicillin resistant staph aureus ) culture positive Z22.322 [place] [address], [place] [address] 0996 Sep, [facility] [address], [place] [address]- 4691 Sep, Difficulty of mother performing R63.3 [place] [address], [place] [address] 2427 Sep, Acute mastitis of left breast N61.0 [facility] [address], [place] [address] Sep, Abscess L02.91 [place] [address], [place] [address]- 5316 Sep, [place] [address], [place] [address]- 0607 Jun, [place] [address], [place] [address]- 9621 Jun, care, subsequent in second trimester Z34.82 ; Placenta previa in second trimester O44.02 ; Abnormal quad screen O28.0 ; History of delivery, currently O09.219 and 24 weeks gestation of Z3A.24 [place] [address], [place] [address] 9080 16 May, 2017 Dental examination Z01.20 [facility] [id number] [address] 6149 May, History of delivery, currently O09.219 [place] [id number] [place] [address] 78191- 9132 07 May, 2017 [place] [id number], [place] [address]- 2764 May, 20 weeks gestation of Z3A.20 ; care, subsequent in second trimester Z34.82 ; History of delivery, currently O09.219 and Abnormal quad screen O28.0 [place] [id number] [place] [address] 19395- 8095 Apr, Elevated blood sugar level R73.9 and Glucosuria R81 [facility] [id number] [place] [address] 04214- 2584 Apr, Elevated blood sugar level R73.9 and Glucosuria R81 [place] [address] 55927- 8067 Apr, Elevated blood sugar level R73.9 [place] [address] 86757- 0861 Apr, [place] [id number] [place] [address] 97252- 6645 Apr, 16 weeks gestation of Z3A.16 ; care, subsequent in second trimester Z34.82 ; Encounter for immunization Z23 and Glucosuria R81 [facility] [id number] [place] [address] 70566- 9200 Mar, 12 weeks gestation of Z3A.12 [facility] [id number] [place] [address] 05054- 1857 Feb, [place] [id number] [place] [address] 86895- 6695 Feb, care, subsequent in first trimester Z34.81 and 8 weeks gestation of Z3A.08 [facility] [id number] [place] [address] 91953- 2356 Jan, [place] [address] 41252- 3465 Jul, Encounter for test, result unknown Z32.00 [facility] [id number] [place] [address] 81453- 3200 Jun, control counseling Z30.9 and Insomnia, unspecified type G47.00 [facility] [id number] [place] [address] 54546- 6253 Sep, Encounter for test Z32.00 [facility] [id number] [place] [address] 16980- 1978 Jul, [facility] [address] 96831- 8131 Jul, Well woman exam Z01.419 ; Encounter for screening for malignant neoplasm of cervix Z12.4 ; Vaginal discharge N89.8 ; Routine screening for STI (sexually transmitted infection) Z11.3 ; Encounter for prescription for transdermal contraceptive Z30.49 ; Nausea with vomiting, unspecified R11.2 ; Menstrual migraine without status migrainosus, not intractable G43.829 and History of anxiety Z86.59 [place] [address] 39672- 7169 Jun, Encounter for surveillance of transdermal contraceptive Z30.49 and Sauceda F48.9 [facility] [id number] [place] [address] 21604- 2894 Oct, [facility] [id number] [place] [address] 83254- 5451 Oct, [facility] [id number] [place] [address] 53526- 0885 Jul, [facility] [id number] [place] [address] 31046- 9978 Jul, [facility] [id number] [place] [address] 04622- 0768 Jul, [facility] [address] 93069- 4166 Jul, [facility] [id number] [place] [address] 53693- 1274 Jul, [facility] [address] 94349- 9816 Jul, [facility] [place] [facility] [address] [id number] [place] [address]31 Jun, [facility] [place] [facility] [address] [id number] [place] [address]- 1355 Jun, [facility] [place] [facility] [address] [id number] [place] [address]- 7797 May, [facility] [place] [facility] [address] [id number] [place] [address]- 9438 May, [facility] [place] [facility] [address] [id number] [place] [address]- 2534 May, [facility] [place] [facility] [address] [id number] [place] [address]- 0168 May, [facility] [place] [facility] [address] [id number] [place] [address]- 4411 Feb, [facility] [place] [facility] [address] [id number] [place] [address]- 2030 Feb, [facility] [place] [facility] [address] [id number] [place] [address]- 7835 Feb, [facility] [place] [facility] [address] [id number] [place] [address]- 8666 Feb, [facility] [place] [facility] [address] [id number] [place] [address]- 7466 Oct, [facility] [place] [facility] [address] [id number] [place] [address]- 2252 Oct, [facility] [place] [facility] [address] [id number] [place] [address]- 1267 Sep, [facility] [place] [facility] [address] [id number] [place] [address]- 2785 Sep, [facility] [place] [facility] [address] [id number] [place] [address]- 5282 Sep, [facility] [place] [facility] [address] [id number] [place] [address] 2546 Sep, [facility] [address] [id number] [place] [address]- 3879 Aug, [facility] [place] [facility] [address] [id number] [place] [address]- 3436 Aug, [facility] [place] [facility] [address] [id number] [place] [address]- 6310 Jul, [facility] [place] [facility] [address] [id number] [place] [address]- 3784 Jul, [facility] [place] [facility] [address] [id number] [place] [address]- 1415 Jun, [facility] [place] [facility] [address] [id number] [place] [address]- 3594 Jun, [facility] [place] [facility] [address] [id number] [place] [address]- 5202 Jun, [facility] [address] [id number] [place] [address]- 3283 Jun, [facility] [place] [facility] [address] [id number] [place] [address]- 1056 Jun, [facility] [address] [facility] [id number] [place] 9018 May, [facility] [place] [facility] [address] [id number] [place] [address]- 4889 May, [facility] [place] [facility] [address] [id number] [place] [address]- 0655 May, [facility] [place] [facility] [address] [id number] [place] [address]- 1422 May, [facility] [place] [facility] [address] [id number] [place] [address]- 2546 Apr, [facility] [place] [facility] [address] [id number] [place] [address]- 6869 Apr, [facility] [address] [id number] [place] [address]- 0797 Apr, [facility] [place] [facility] [address] [id number] [place] [address]- 3440 Feb, [facility] [place] [facility] [address] [id number] [place] [address]- 7256 Jan, [facility] [place] [facility] [address] [id number] [place] [address]- 7552 Aug, [facility] [place] [facility] [address] [id number] [place] [address]- 9697 Aug, [facility] [place] [facility] [address] [id number] [place] [address]- 5117 Aug, [facility] [place] [facility] [address] [id number] [place] [address]- 3484 Aug, [facility] [place] [facility] [address] [id number] [place] [address]- 4915 Aug, [facility] [place] [facility] [address] [id number] [place] [address]- 1041 Aug, [facility] [place] [facility] [address] [id number] [place] [address]- 3916 Jul, [facility] [place] [facility] [address] [id number] [place] [address]- 3025 Jul, [facility] [place] [facility] [address] [id number] [place] [address]- 3086 Jul, [facility] [place] [facility] [address] [id number] [place] [address]- 3412 Jul, [facility] [place] [facility] [address] [id number] [place] [address]- 8258 Jul, [facility] [place] [facility] [address] [id number] [place] [address]- 6758 Jul, [facility] [place] [facility] [address] [id number] [place] [address]- 5688 08 Jul, 2012 [facility] [address] [id number] [place] [address]- 8170 Jun, [facility] [place] [facility] [address] [id number] [place] [address]- 8280 Jun, [facility] [address] [id number] [place] [address]- 1530 Jun, [facility] [address] [id number] [place] [address]- 4145 Jun, [facility] [address] [id number] [place] [address]- 1085 Jun, [facility] [address] [id number] [place] [address]- 7064 Jun, [facility] [address] [id number] [place] [address]- 5942 Jun, [facility] [address] [id number] [place] [address]- 5805 Jun, [facility] [address] [id number] [place] [address]- 5159 Jun, [facility] [address] [id number] [place] [address]- 0954 Jun, [facility] [place] [facility] [address] [id number] [place] [address]- 8435 May, [facility] [address] [id number] [place] [address]- 6458 May, [facility] [place] [facility] [address] [id number] [place] [address]- 0087 May, [facility] [place] [facility] [address] [id number] [place] [address]- 1730 May, [facility] [place] [facility] [address] [id number] [place] [address]- 9720 May, [facility] [place] [facility] [address] [id number] [place] [address]- 6835 Apr, [facility] [place] [facility] [address] [id number] [place] [address]- 3991 Apr, [facility] [place] [facility] [address] [id number] [place] [address]- 2489 Apr, [facility] [place] [facility] [address] [id number] [place] [address]- 0995 Apr, [facility] [place] [facility] [address] [id number] [place] [address]- 7008 Apr, [facility] [place] [facility] [address] [id number] [place] [address]- 8622 25 Mar, 2012 [facility] [place] [facility] [address] [id number] [place] [address]- 7292 20 Mar, 2012 [facility] [place] [facility] [address] [id number] [place] [address]- 8408 12 Mar, 2012 [facility] [place] [facility] [address] [id number] [place] [address]- 0184 07 Mar, 2012 [facility] [place] [facility] [address] [id number], [place] [address]- 7549 06 Mar, 2012 [facility] [place] [facility] [address] [id number], [place] [address]- 6845 05 Mar, 2012 [facility] [place] [facility] [address] [id number], [place] [address]- 9729 Feb, [facility] [place] [facility] [address] [id number] [place] [address]- 0722 Feb, [facility] [place] [facility] [address] [id number] [place] [address]- 7120 Feb, [facility] [place] [facility] [address] [id number], [place] [address]- 2038 Feb, [facility] [place] [facility] [address] [id number], [place] [address]- 6417 Feb, [facility] [place] [facility] [address] [id number] [place] [address]- 4595 Jan, [facility] [place] [facility] [address] [id number] [place] [address]- 8837 Jan, [facility] [place] [facility] [address] [id number] [place] [address]- 5684 Jan, [facility] [place] [facility] [address] [id number] [place] [address]- 8973 Jan, [facility] [place] [facility] [address] [id number] [place] [address]- 9885 Jan, [facility] [place] [facility] [address] [id number] [place] [address]- 9105 Jan, [facility] [place] [facility] [address] [id number] [place] [address]- 9825 Dec, [facility] [place] [facility] [address] [id number] [place] [address]- 5933 Dec, [facility] [place] [facility] [address] [id number] [place] [address]- 8468 Dec, [facility] [place] [facility] [address] [id number] [place] [address]- 2850 Dec, [facility] [place] [facility] [address] [id number] [place] [address]- 1158 Dec, [facility] [place] [facility] [address] [id number] [place] [address]- 0206 Dec, [facility] [place] [facility] [address] [id number] [place] [address]- 8566 Dec, [facility] [place] [facility] [address] [id number] [place] [address]- 1038 November, [facility] [place] [facility] [address] [id number] [place] [address]- 7147 November, [facility] [place] [facility] [address] [id number] [place] [address]- 9476 November, [facility] [place] [facility] [address] [id number] [place] [address]- 3504 Oct, [facility] [place] [facility] [address] [id number] [place] [address]- 3876 Oct, [facility] [place] [facility] [address] [id number] [place] [address]- 1355 Oct, [facility] [place] [facility] [address] [id number] [place] [address]- 9341 Sep, [facility] [place] [facility] [address] [id number] [place] [address]- 5666 Sep, [facility] [place] [facility] [address] [id number] [place] [address]- 4445 Sep, [facility] [place] [facility] [address] [id number] [place] [address]- 9723 Sep, [facility] [place] [facility] [address] [id number] [place] [address]- 7849 Sep, [facility] [place] [facility] [address] [id number] [place] [address]- 1417 Aug, [facility] [place] [facility] [address] [id number] [place] [address]- 8295 Aug, [facility] [place] [facility] [address] [id number] [place] [address]- 4901 Aug, [facility] [place] [facility] [address] [id number] [place] [address]- 2193 Aug, [facility] [place] [facility] [address] [id number] [place] [address]- 9071 Jul, [facility] [place] [facility] [address] [id number] [place] [address]- 9858 Jul, [facility] [place] [facility] [address] [id number] [place] [address]- 2538 28 Jul, 2011 [facility] [place] [facility] [address] [id number] [place] [address]- 1004 Jul, [facility] [place] [facility] [address] [id number] [place] [address]- 8108 18 Jul, 2011 [facility] [place] [facility] [address] [id number] [place] [address]- 3338 12 Jul, 2011 [facility] [place] [facility] [address] [id number] [place] [address]- 6852 11 Jul, 2011 [facility] [place] [facility] [address] [id number] [place] [address]- 5349 10 Jul, 2011 [facility] [place] [facility] [address] [id number] [place] [address]- 1254 16 Jun, 2011 [facility] [place] [facility] [address] [id number] [place] [address]- 6923 Jun, [facility] [place] [facility] [address] [id number] [place] [address]- 3965 12 Jun, 2011 [facility] [place] [facility] [address] [id number] [place] [address]- 8050 06 Jun, 2011 [facility] [place] [facility] [address] [id number] [place] [address]- 2393 14 May, 2011 [facility] [place] [facility] [address] [id number] [place] [address]- 5019 31 Apr, 2011 [facility] [place] [facility] [address] [id number] [place] [address]- 3219 13 Mar, 2011 [facility] [place] [facility] [address] [id number] [place] [address]- 0735 16 Dec, 2010 [facility] [place] [facility] [address] [id number] [place] [address]- 2245 10 Aug, 2010 [facility] [place] [facility] [address] [id number] [place] [address]- 4874 11 Jul, 2010 [facility] [place] [facility] [address], [place] [address]- 2206 Sep, [facility] [address], [place] [address]- 2723 Jul, [facility] [address], [place] [address]- 0763 Jun, [facility] [address], [place] [address]- 6054 Jun, [facility] [address], [place] [address]- 0155 May, [facility] [id number] [place] [address] Apr, [facility] [id number] [address] Apr, [facility] [id number] [address] Apr, [facility] [id number], [place] [address] Feb, [facility] [id number], [place] [address] Feb, [facility] [id number], [place] [address] Jan, [facility] [id number] [address] November, IMMUNIZATIONS No Known Immunizations SOCIAL HISTORY Never Assessed REASON FOR VISIT Lab (walk-in)--[facility] PLAN OF CARE VITAL SIGNS MEDICATIONS Unknown Medications RESULTS No Results PROCEDURES Procedure Date Ordered Result Body Site LAB NOT BILLED BY [facility] October 30, 2017 MINNA, ELISA* October 30, 2017 INSTRUCTIONS MEDICATIONS ADMINISTERED No Known Medications MEDICAL (GENERAL) HISTORY Type Description Date Medical History Arthritis Surgical History cholecystectomy Surgical History wisdom teeth extraction Surgical History Partial hysterectomy 2018 Hospitalization History child Hospitalization History colitis
--- OUTSIDE RECORDS SUMMARY | 2018-02-24 22:46 | XMS REPORT ---
Author Author LESLIE CELE [facility] Address [address] [place] [address] Care Team Providers Care Pre Sales Technical Engineer Name Role Phone LESLIEALBERTO REIDHANY Unavailable PROBLEMS Type Condition ICD9-CM Code JMK25-TE Code Onset Dates Condition Status SNOMED Code Problem Menstrual migraine without status migrainosus, not intractable G43.829 Active 90023958 Problem Vaginal bleeding N93.9 Active 947492569 Problem Other chronic pain G89.29 Active 75715178 Problem Insomnia, unspecified type G47.00 Active 250514208 Problem History of anxiety Z86.59 Active 719521368 Problem Difficulty of mother performing R63.3 Active 491518321 Problem Rheumatoid arthritis with positive rheumatoid factor, involving unspecified site M05.9 Active 207750063 ALLERGIES No Information ENCOUNTERS Encounter Location Date Diagnosis [facility] [id number] [place] [address] 44530- 5627 Jan, [place] [id number] [place] [address] 48787- 4401 Jan, [facility] [id number] [place] [address] 50882- 5669 Jan, [facility] [id number] [place] [address] 52023- 5497 Jan, [facility] [id number] [place] [address] 60548- 1683 Dec, Pelvic pain R10.2 and Vaginal bleeding N93.9 [facility] [address] [address]- 0709 Dec, [facility] [id number] [place] [address] 04818- 8767 Dec, [address], [place] [address] Dec, Screening, deficiency anemia, iron Z13.0 [place] [id number] [place] [address] 32651- 5688 Oct, Rheumatoid arthritis with positive rheumatoid factor, involving unspecified site M05.9 [place] [id number] [place] [address] 14644- 9375 Oct, Rheumatoid arthritis with positive rheumatoid factor, involving unspecified site M05.9 [address] [place] [id number] [place] [address] 43453- 9298 Oct, Closed nondisplaced fracture of third metatarsal bone of right foot with routine healing, subsequent encounter S92.334D ; Closed nondisplaced fracture of second metatarsal bone of right foot with routine healing, subsequent encounter S92.324D ; Closed nondisplaced fracture of phalanx of left great toe with routine healing, unspecified phalanx, subsequent encounter S92.405D and Other chronic pain G89.29 [id number] [place] [address] 78039- 3092 Oct, Closed nondisplaced fracture of third metatarsal [...] positive rheumatoid factor, involving unspecified site M05.9 [place] [id number] [place] [address] 60327- 9791 Oct, [place] [id number] [place] [address] 04956- 6015 Oct, Injury of finger of right hand, initial encounter S69.91XA and Closed displaced fracture of distal phalanx of right middle finger, initial encounter S62.632A [address] [id number], [place] [address] 5926 Sep, Mastitis N61.0 and MRSA (methicillin resistant staph aureus ) culture positive Z22.322 [address] [address], [place] [address] 3[address] Sep, [facility] [address], [place] [address] 8212 Sep, Difficulty of mother performing R63.3 [address], [place] [address] 3216 Sep, Acute mastitis of left breast N61.0 [facility] [address], [place] [address] Sep, Abscess L02.91 [address], [place] [address]- 3496 Sep, [address] [place] [address], [place] [address]- 3026 Jun, [place] [address] [address]- 7390 Jun, care, subsequent in second trimester Z34.82 ; Placenta previa in second trimester O44.02 ; Abnormal quad screen O28.0 ; History of delivery, currently O09.219 and 24 weeks gestation of Z3A.24 [address] [address], [place] [address]- 9944 16 May, 2017 Dental examination Z01.20 [address] [place] [id number], [place] [address] 6705 May, History of delivery, currently O09.219 [id number] [place] [address] 67037- 3279 07 May, 2017 [id number] [address]- 9764 May, 20 weeks gestation of Z3A.20 ; care, subsequent in second trimester Z34.82 ; History of delivery, currently O09.219 and Abnormal quad screen O28.0 [place] [id number] [place] [address] 07490- 1737 Apr, Elevated blood sugar level R73.9 and Glucosuria R81 [id number] [place] [address] 66306- 1084 Apr, Elevated blood sugar level R73.9 and Glucosuria R81 [address] [address] 34452- 8599 Apr, Elevated blood sugar level R73.9 [place] [address] 60673- 2974 Apr, [place] [id number] [place] [address] 85689- 4288 Apr, 16 weeks gestation of Z3A.16 ; care, subsequent in second trimester Z34.82 ; Encounter for immunization Z23 and Glucosuria R81 [place] [id number] [place] [address] 80434- 1657 Mar, 12 weeks gestation of Z3A.12 [place] [id number] [place] [address] 07826- 5995 Feb, [place] [id number] [place] [address] 90714- 7400 Feb, care, subsequent in first trimester Z34.81 and 8 weeks gestation of Z3A.08 [place] [id number] [place] [address] 24590- 7195 Jan, [place] [address] 96631- 0998 Jul, Encounter for test, result unknown Z32.00 [address] [place] [id number] [place] [address] 09275- 7303 Jun, control counseling Z30.9 and Insomnia, unspecified type G47.00 [facility] [id number] [place] [address] 86639- 1157 Sep, Encounter for test Z32.00 [facility] [id number] [place] [address] 87243- 3145 Jul, [facility] [address] 60935- 1158 Jul, Well woman exam Z01.419 ; Encounter for screening for malignant neoplasm of cervix Z12.4 ; Vaginal discharge N89.8 ; Routine screening for STI (sexually transmitted infection) Z11.3 ; Encounter for prescription for transdermal contraceptive Z30.49 ; Nausea with vomiting, unspecified R11.2 ; Menstrual migraine without status migrainosus, not intractable G43.829 and History of anxiety Z86.59 [place] [address] 47902- 5685 Jun, Encounter for surveillance of transdermal contraceptive Z30.49 and Sauceda F48.9 [facility] [id number] [place] [address] 90614- 9210 Oct, [facility] [id number] [place] [address] 32542- 1294 Oct, [facility] [id number] [place] [address] 23457- 4537 Jul, [facility] [id number] [place] [address] 83794- 1031 Jul, [facility] [id number] [place] [address] 52933- 8700 Jul, [facility] [address] 05352- 2376 Jul, [facility] [id number] [place] [address] 85701- 4847 Jul, [facility] [address] 01578- 8583 Jul, [facility] [place] [facility] [address] [id number] [place] [address] Jun, [facility] [place] [facility] [address] [id number] [place] [address]- 7420 Jun, [facility] [place] [facility] [address] [id number] [place] [address]- 4423 May, [facility] [place] [facility] [address] [id number] [place] [address]- 9636 May, [facility] [place] [facility] [address] [id number] [place] [address]- 0333 May, [facility] [place] [facility] [address] [id number] [place] [address]- 5275 May, [facility] [place] [facility] [address] [id number] [place] [address]- 6017 Feb, [facility] [place] [facility] [address] [id number] [place] [address]- 0978 Feb, [facility] [place] [facility] [address] [id number] [place] [address]- 3816 Feb, [facility] [place] [facility] [address] [id number] [place] [address]- 0189 Feb, [facility] [place] [facility] [address] [id number] [place] [address]- 7369 Oct, [facility] [place] [facility] [address] [id number] [place] [address]- 9516 Oct, [facility] [place] [facility] [address] [id number] [place] [address]- 6009 Sep, [facility] [place] [facility] [address] [id number] [place] [address]- 6606 Sep, [facility] [place] [facility] [address] [id number] [place] [address]- 6708 Sep, [facility] [place] [facility] [address] [id number] [place] [address] 2546 Sep, [facility] [address] [id number] [place] [address]- 8108 Aug, [facility] [place] [facility] [address] [id number] [place] [address]- 7186 Aug, [facility] [place] [facility] [address] [id number] [place] [address]- 1954 Jul, [facility] [place] [facility] [address] [id number] [place] [address]- 7109 Jul, [facility] [place] [facility] [address] [id number] [place] [address]- 7674 Jun, [facility] [place] [facility] [address] [id number] [place] [address]- 2374 Jun, [facility] [place] [facility] [address] [id number] [place] [address]- 0230 Jun, [facility] [address] [id number] [place] [address]- 8681 Jun, [facility] [place] [facility] [address] [id number] [place] [address]- 6698 Jun, [facility] [address] [facility] [id number] [place] 7976 May, [facility] [place] [facility] [address] [id number] [place] [address]- 1339 May, [facility] [place] [facility] [address] [id number] [place] [address]- 7606 May, [facility] [place] [facility] [address] [id number] [place] [address]- 8951 May, [facility] [place] [facility] [address] [id number] [place] [address]- 2546 Apr, [facility] [place] [facility] [address] [id number] [place] [address]- 4655 Apr, [facility] [address] [id number] [place] [address]- 7526 Apr, [facility] [place] [facility] [address] [id number] [place] [address]- 7530 Feb, [facility] [place] [facility] [address] [id number] [place] [address]- 2678 Jan, [facility] [place] [facility] [address] [id number] [place] [address]- 3200 Aug, [facility] [place] [facility] [address] [id number] [place] [address]- 9316 Aug, [facility] [place] [facility] [address] [id number] [place] [address]- 2514 Aug, [facility] [place] [facility] [address] [id number] [place] [address]- 4547 Aug, [facility] [place] [facility] [address] [id number] [place] [address]- 6102 Aug, [facility] [place] [facility] [address] [id number] [place] [address]- 5641 Aug, [facility] [place] [facility] [address] [id number] [place] [address]- 6967 Jul, [facility] [place] [facility] [address] [id number] [place] [address]- 2110 Jul, [facility] [place] [facility] [address] [id number] [place] [address]- 5393 Jul, [facility] [place] [facility] [address] [id number] [place] [address]- 2169 Jul, [facility] [place] [facility] [address] [id number] [place] [address]- 9092 Jul, [facility] [place] [facility] [address] [id number] [place] [address]- 5373 Jul, [facility] [place] [facility] [address] [id number] [place] [address]- 9892 08 Jul, 2012 [facility] [address] [id number] [place] [address]- 2939 Jun, [facility] [place] [facility] [address] [id number] [place] [address]- 8208 Jun, [facility] [address] [id number] [place] [address]- 7466 Jun, [facility] [address] [id number] [place] [address]- 3334 Jun, [facility] [address] [id number] [place] [address]- 8035 Jun, [facility] [address] [id number] [place] [address]- 2256 Jun, [facility] [address] [id number] [place] [address]- 1781 Jun, [facility] [address] [id number] [place] [address]- 3291 Jun, [facility] [address] [id number] [place] [address]- 1401 Jun, [facility] [address] [id number] [place] [address]- 4984 Jun, [facility] [place] [facility] [address] [id number] [place] [address]- 3090 May, [facility] [address] [id number] [place] [address]- 4731 May, [facility] [place] [facility] [address] [id number] [place] [address]- 8857 May, [facility] [place] [facility] [address] [id number] [place] [address]- 7946 May, [facility] [place] [facility] [address] [id number] [place] [address]- 1054 May, [facility] [place] [facility] [address] [id number] [place] [address]- 3411 Apr, [facility] [place] [facility] [address] [id number] [place] [address]- 8287 Apr, [facility] [place] [facility] [address] [id number] [place] [address]- 7671 Apr, [facility] [place] [facility] [address] [id number] [place] [address]- 9401 Apr, [facility] [place] [facility] [address] [id number] [place] [address]- 2571 Apr, [facility] [place] [facility] [address] [id number] [place] [address]- 6644 25 Mar, 2012 [facility] [place] [facility] [address] [id number] [place] [address]- 0775 20 Mar, 2012 [facility] [place] [facility] [address] [id number] [place] [address]- 6020 12 Mar, 2012 [facility] [place] [facility] [address] [id number] [place] [address]- 5111 07 Mar, 2012 [facility] [place] [facility] [address] [id number], [place] [address]- 2295 06 Mar, 2012 [facility] [place] [facility] [address] [id number], [place] [address]- 2274 05 Mar, 2012 [facility] [place] [facility] [address] [id number], [place] [address]- 3648 Feb, [facility] [place] [facility] [address] [id number] [place] [address]- 0077 Feb, [facility] [place] [facility] [address] [id number] [place] [address]- 7384 Feb, [facility] [place] [facility] [address] [id number], [place] [address]- 0748 Feb, [facility] [place] [facility] [address] [id number], [place] [address]- 4578 Feb, [facility] [place] [facility] [address] [id number] [place] [address]- 3693 Jan, [facility] [place] [facility] [address] [id number] [place] [address]- 7575 Jan, [facility] [place] [facility] [address] [id number] [place] [address]- 3499 Jan, [facility] [place] [facility] [address] [id number] [place] [address]- 3450 Jan, [facility] [place] [facility] [address] [id number] [place] [address]- 5083 Jan, [facility] [place] [facility] [address] [id number] [place] [address]- 5225 Jan, [facility] [place] [facility] [address] [id number] [place] [address]- 6457 Dec, [facility] [place] [facility] [address] [id number] [place] [address]- 1294 Dec, [facility] [place] [facility] [address] [id number] [place] [address]- 8433 Dec, [facility] [place] [facility] [address] [id number] [place] [address]- 0343 Dec, [facility] [place] [facility] [address] [id number] [place] [address]- 9663 Dec, [facility] [place] [facility] [address] [id number] [place] [address]- 6920 Dec, [facility] [place] [facility] [address] [id number] [place] [address]- 0614 Dec, [facility] [place] [facility] [address] [id number] [place] [address]- 0731 November, [facility] [place] [facility] [address] [id number] [place] [address]- 9687 November, [facility] [place] [facility] [address] [id number] [place] [address]- 1119 November, [facility] [place] [facility] [address] [id number] [place] [address]- 7612 Oct, [facility] [place] [facility] [address] [id number] [place] [address]- 6539 Oct, [facility] [place] [facility] [address] [id number] [place] [address]- 0029 Oct, [facility] [place] [facility] [address] [id number] [place] [address]- 0638 Sep, [facility] [place] [facility] [address] [id number] [place] [address]- 2355 Sep, [facility] [place] [facility] [address] [id number] [place] [address]- 7327 Sep, [facility] [place] [facility] [address] [id number] [place] [address]- 2635 Sep, [facility] [place] [facility] [address] [id number] [place] [address]- 2742 Sep, [facility] [place] [facility] [address] [id number] [place] [address]- 3897 Aug, [facility] [place] [facility] [address] [id number] [place] [address]- 7712 Aug, [facility] [place] [facility] [address] [id number] [place] [address]- 4451 Aug, [facility] [place] [facility] [address] [id number] [place] [address]- 7095 Aug, [facility] [place] [facility] [address] [id number] [place] [address]- 1426 Jul, [facility] [place] [facility] [address] [id number] [place] [address]- 4646 Jul, [facility] [place] [facility] [address] [id number] [place] [address]- 2220 28 Jul, 2011 [facility] [place] [facility] [address] [id number] [place] [address]- 1305 Jul, [facility] [place] [facility] [address] [id number] [place] [address]- 7523 18 Jul, 2011 [facility] [place] [facility] [address] [id number] [place] [address]- 0227 12 Jul, 2011 [facility] [place] [facility] [address] [id number] [place] [address]- 2971 11 Jul, 2011 [facility] [place] [facility] [address] [id number] [place] [address]- 6472 10 Jul, 2011 [facility] [place] [facility] [address] [id number] [place] [address]- 0280 16 Jun, 2011 [facility] [place] [facility] [address] [id number] [place] [address]- 8989 Jun, [facility] [place] [facility] [address] [id number] [place] [address]- 9445 12 Jun, 2011 [facility] [place] [facility] [address] [id number] [place] [address]- 4556 06 Jun, 2011 [facility] [place] [facility] [address] [id number] [place] [address]- 8438 14 May, 2011 [facility] [place] [facility] [address] [id number] [place] [address]- 6110 31 Apr, 2011 [facility] [place] [facility] [address] [id number] [place] [address]- 2265 13 Mar, 2011 [facility] [place] [facility] [address] [id number] [place] [address]- 8097 16 Dec, 2010 [facility] [place] [facility] [address] [id number] [place] [address]- 3607 10 Aug, 2010 [facility] [place] [facility] [address] [id number] [place] [address]- 8901 11 Jul, 2010 [facility] [place] [facility] [address], [place] [address]- 6196 Sep, [facility] [address], [place] [address]- 3964 Jul, [facility] [address], [place] [address]- 0381 Jun, [facility] [address], [place] [address]- 5712 Jun, [facility] [address], [place] [address]- 1086 May, [facility] [id number] [place] [address] 29858- 8929 Apr, [facility] [address], [place] [address]- 8982 Apr, [facility] [address], [place] [address]- 6188 Apr, [facility] [address], [place] [address]- 1469 Feb, [facility] [address], [place] [address]- 6137 Feb, [facility] [id number] [place] [address] Jan, [facility] [id number] [address] November, IMMUNIZATIONS No Known Immunizations SOCIAL HISTORY Never Assessed REASON FOR VISIT Deferred Lab PLAN OF CARE VITAL SIGNS MEDICATIONS Unknown Medications RESULTS No Results PROCEDURES No Known procedures INSTRUCTIONS MEDICATIONS ADMINISTERED No Known Medications MEDICAL (GENERAL) HISTORY Type Description Date Medical History Arthritis Surgical History cholecystectomy Surgical History wisdom teeth extraction Surgical History Partial hysterectomy 2018 Hospitalization History child Hospitalization History colitis
--- OUTSIDE RECORDS SUMMARY | 2018-02-24 22:47 | XMS REPORT ---
Author Author LESLIE CELE [facility] Address [address] [place] [address] Care Team Providers Care Revenue Inspector Name Role Phone LESLIEALBERTO REIDHANY Unavailable PROBLEMS Type Condition ICD9-CM Code AQI49-VK Code Onset Dates Condition Status SNOMED Code Problem Menstrual migraine without status migrainosus, not intractable G43.829 Active 05928593 Problem Vaginal bleeding N93.9 Active 555837313 Problem Other chronic pain G89.29 Active 43179045 Problem Insomnia, unspecified type G47.00 Active 388935270 Problem History of anxiety Z86.59 Active 484643131 Problem Difficulty of mother performing R63.3 Active 196855118 Problem Rheumatoid arthritis with positive rheumatoid factor, involving unspecified site M05.9 Active [id number] ALLERGIES No Information ENCOUNTERS Encounter Location Date Diagnosis [facility] [id number] [place] [address] 84496- 3930 Jan, [place] [id number] [place] [address] 28790- 9191 Jan, [facility] [id number] [place] [address] 74121- 8542 Jan, [facility] [id number] [place] [address] 02132- 0280 Jan, [facility] [id number] [place] [address] 07703- 3599 Dec, Pelvic pain R10.2 and Vaginal bleeding N93.9 [facility] [address] 17659- 2501 Dec, [facility] [id number] [place] [address] 76332- 4497 Dec, [place] [address], [place] [address] 2625 Dec, Screening, deficiency anemia, iron Z13.0 [facility] [facility] [id number] [place] [address] 09645- 1639 Oct, Rheumatoid arthritis with positive rheumatoid factor, involving unspecified site M05.9 [facility] [id number] [place] [address] 99947- 1008 Oct, Rheumatoid arthritis with positive rheumatoid factor, involving unspecified site M05.9 [place] [id number] [place] [address] 04302- 0401 Oct, Closed nondisplaced fracture of third metatarsal bone of right foot with routine healing, subsequent encounter S92.334D ; Closed nondisplaced fracture of second metatarsal bone of right foot with routine healing, subsequent encounter S92.324D ; Closed nondisplaced fracture of phalanx of left great toe with routine healing, unspecified phalanx, subsequent encounter S92.405D and Other chronic pain G89.29 [place] [id number] [place] [address] 69136- 3882 Oct, Closed nondisplaced fracture of third metatarsal [...] positive rheumatoid factor, involving unspecified site M05.9 [place] [id number] [place] [address] 75988- 4137 Oct, [facility] [facility] [id number] [place] [address] 30909- 1596 Oct, Injury of finger of right hand, initial encounter S69.91XA and Closed displaced fracture of distal phalanx of right middle finger, initial encounter S62.632A [place] [id number], [place] [address] 8855 Sep, Mastitis N61.0 and MRSA (methicillin resistant staph aureus ) culture positive Z22.322 [place] [address], [place] [address]- 6899 Sep, [facility] [address], [place] [address]- 5130 Sep, Difficulty of mother performing R63.3 [place] [address], [place] [address]- 6171 Sep, Acute mastitis of left breast N61.0 [facility] [address], [place] [address] Sep, Abscess L02.91 [place] [address], [place] [address]- 4882 Sep, [place] [address] [address] 2004 Jun, [place] [address], [place] [address]- 8140 Jun, care, subsequent in second trimester Z34.82 ; Placenta previa in second trimester O44.02 ; Abnormal quad screen O28.0 ; History of delivery, currently O09.219 and 24 weeks gestation of Z3A.24 [place] [address], [place] [address]- 9426 16 May, 2017 Dental examination Z01.20 [facility] [facility] [id number], [place] [address]- 9589 May, History of delivery, currently O09.219 [place] [id number] [place] [address] 81308- 8627 07 May, 2017 [place] [id number] [address]- 1648 May, 20 weeks gestation of Z3A.20 ; care, subsequent in second trimester Z34.82 ; History of delivery, currently O09.219 and Abnormal quad screen O28.0 [place] [id number] [place] [address] 65753- 4864 Apr, Elevated blood sugar level R73.9 and Glucosuria R81 [place] [facility] [id number] [place] [address] 86952- 6136 Apr, Elevated blood sugar level R73.9 and Glucosuria R81 [place] [address] 98942- 5754 Apr, Elevated blood sugar level R73.9 [place] [address] 57645- 8638 Apr, [place] [facility] [id number] [place] [address] 83187- 7010 Apr, 16 weeks gestation of Z3A.16 ; care, subsequent in second trimester Z34.82 ; Encounter for immunization Z23 and Glucosuria R81 [place] [id number] [place] [address] 58960- 8450 Mar, 12 weeks gestation of Z3A.12 [place] [facility] [id number] [place] [address] 94505- 0732 Feb, [place] [facility] [id number] [place] [address] 04092- 5363 Feb, care, subsequent in first trimester Z34.81 and 8 weeks gestation of Z3A.08 [place] [facility] [id number] [place] [address] 65991- 1277 Jan, [place] [address] 74083- 7015 Jul, Encounter for test, result unknown Z32.00 [facility] [facility] [id number] [place] [address] 02257- 7789 Jun, control counseling Z30.9 and Insomnia, unspecified type G47.00 [facility] [id number] [place] [address] 44962- 9173 Sep, Encounter for test Z32.00 [facility] [id number] [place] [address] 05142- 2604 Jul, [facility] [address] 48425- 5473 Jul, Well woman exam Z01.419 ; Encounter for screening for malignant neoplasm of cervix Z12.4 ; Vaginal discharge N89.8 ; Routine screening for STI (sexually transmitted infection) Z11.3 ; Encounter for prescription for transdermal contraceptive Z30.49 ; Nausea with vomiting, unspecified R11.2 ; Menstrual migraine without status migrainosus, not intractable G43.829 and History of anxiety Z86.59 [place] [address] 54364- 6039 Jun, Encounter for surveillance of transdermal contraceptive Z30.49 and Sauceda F48.9 [facility] [id number] [place] [address] 79643- 5654 Oct, [facility] [id number] [place] [address] 60951- 1884 Oct, [facility] [id number] [place] [address] 88852- 1096 Jul, [facility] [id number] [place] [address] 08147- 2492 Jul, [facility] [id number] [place] [address] 32887- 3680 Jul, [facility] [address] 04279- 2337 Jul, [facility] [id number] [place] [address] 71461- 3494 Jul, [facility] [address] 88883- 1064 Jul, [facility] [place] [facility] [address] [id number] [place] 1198 Jun, [facility] [place] [facility] [address] [id number] [place] [address]- 1063 Jun, [facility] [place] [facility] [address] [id number] [place] [address]- 0790 May, [facility] [place] [facility] [address] [id number] [place] [address]- 8128 May, [facility] [place] [facility] [address] [id number] [place] [address]- 5047 May, [facility] [place] [facility] [address] [id number] [place] [address]- 8052 May, [facility] [place] [facility] [address] [id number] [place] [address]- 7492 Feb, [facility] [place] [facility] [address] [id number] [place] [address]- 1328 Feb, [facility] [place] [facility] [address] [id number] [place] [address]- 6457 Feb, [facility] [place] [facility] [address] [id number] [place] [address]- 9757 Feb, [facility] [place] [facility] [address] [id number] [place] [address]- 0737 Oct, [facility] [place] [facility] [address] [id number] [place] [address]- 4724 Oct, [facility] [place] [facility] [address] [id number] [place] [address]- 5091 Sep, [facility] [place] [facility] [address] [id number] [place] [address]- 4282 Sep, [facility] [place] [facility] [address] [id number] [place] [address]- 2608 Sep, [facility] [place] [facility] [address] [id number] [place] [address] 2546 Sep, [facility] [address] [id number] [place] [address]- 1657 Aug, [facility] [place] [facility] [address] [id number] [place] [address]- 9316 Aug, [facility] [place] [facility] [address] [id number] [place] [address]- 1887 Jul, [facility] [place] [facility] [address] [id number] [place] [address]- 3063 Jul, [facility] [place] [facility] [address] [id number] [place] [address]- 6347 Jun, [facility] [place] [facility] [address] [id number] [place] [address]- 9515 Jun, [facility] [place] [facility] [address] [id number] [place] [address]- 3165 Jun, [facility] [address] [id number] [place] [address]- 3735 Jun, [facility] [place] [facility] [address] [id number] [place] [address]- 6460 Jun, [facility] [address] [facility] [id number] [place] 7319 May, [facility] [place] [facility] [address] [id number] [place] [address]- 1995 May, [facility] [place] [facility] [address] [id number] [place] [address]- 8524 May, [facility] [place] [facility] [address] [id number] [place] [address]- 3531 May, [facility] [place] [facility] [address] [id number] [place] [address]- 2546 Apr, [facility] [place] [facility] [address] [id number] [place] [address]- 2770 Apr, [facility] [address] [id number] [place] [address]- 3514 Apr, [facility] [place] [facility] [address] [id number] [place] [address]- 5447 Feb, [facility] [place] [facility] [address] [id number] [place] [address]- 0218 Jan, [facility] [place] [facility] [address] [id number] [place] [address]- 4005 Aug, [facility] [place] [facility] [address] [id number] [place] [address]- 0242 Aug, [facility] [place] [facility] [address] [id number] [place] [address]- 6534 Aug, [facility] [place] [facility] [address] [id number] [place] [address]- 5338 Aug, [facility] [place] [facility] [address] [id number] [place] [address]- 1391 Aug, [facility] [place] [facility] [address] [id number] [place] [address]- 6453 Aug, [facility] [place] [facility] [address] [id number] [place] [address]- 5134 Jul, [facility] [place] [facility] [address] [id number] [place] [address]- 4170 Jul, [facility] [place] [facility] [address] [id number] [place] [address]- 4409 Jul, [facility] [place] [facility] [address] [id number] [place] [address]- 9738 Jul, [facility] [place] [facility] [address] [id number] [place] [address]- 9697 Jul, [facility] [place] [facility] [address] [id number] [place] [address]- 8090 Jul, [facility] [place] [facility] [address] [id number] [place] [address]- 4967 08 Jul, 2012 [facility] [address] [id number] [place] [address]- 3940 Jun, [facility] [place] [facility] [address] [id number] [place] [address]- 0360 Jun, [facility] [address] [id number] [place] [address]- 0781 Jun, [facility] [address] [id number] [place] [address]- 6351 Jun, [facility] [address] [id number] [place] [address]- 1037 Jun, [facility] [address] [id number] [place] [address]- 9322 Jun, [facility] [address] [id number] [place] [address]- 5163 Jun, [facility] [address] [id number] [place] [address]- 8916 Jun, [facility] [address] [id number] [place] [address]- 9199 Jun, [facility] [address] [id number] [place] [address]- 4437 Jun, [facility] [place] [facility] [address] [id number] [place] [address]- 4357 May, [facility] [address] [id number] [place] [address]- 6418 May, [facility] [place] [facility] [address] [id number] [place] [address]- 3324 May, [facility] [place] [facility] [address] [id number] [place] [address]- 7477 May, [facility] [place] [facility] [address] [id number] [place] [address]- 3397 May, [facility] [place] [facility] [address] [id number] [place] [address]- 9677 Apr, [facility] [place] [facility] [address] [id number] [place] [address]- 8870 Apr, [facility] [place] [facility] [address] [id number] [place] [address]- 4148 Apr, [facility] [place] [facility] [address] [id number] [place] [address]- 2041 Apr, [facility] [place] [facility] [address] [id number] [place] [address]- 3708 Apr, [facility] [place] [facility] [address] [id number] [place] [address]- 1828 25 Mar, 2012 [facility] [place] [facility] [address] [id number] [place] [address]- 7237 20 Mar, 2012 [facility] [place] [facility] [address] [id number] [place] [address]- 1644 12 Mar, 2012 [facility] [place] [facility] [address] [id number] [place] [address]- 7590 07 Mar, 2012 [facility] [place] [facility] [address] [id number], [place] [address]- 8106 06 Mar, 2012 [facility] [place] [facility] [address] [id number], [place] [address]- 3127 05 Mar, 2012 [facility] [place] [facility] [address] [id number], [place] [address]- 3748 Feb, [facility] [place] [facility] [address] [id number] [place] [address]- 0503 Feb, [facility] [place] [facility] [address] [id number] [place] [address]- 2871 Feb, [facility] [place] [facility] [address] [id number], [place] [address]- 5185 Feb, [facility] [place] [facility] [address] [id number], [place] [address]- 3330 Feb, [facility] [place] [facility] [address] [id number] [place] [address]- 1155 Jan, [facility] [place] [facility] [address] [id number] [place] [address]- 3080 Jan, [facility] [place] [facility] [address] [id number] [place] [address]- 5949 Jan, [facility] [place] [facility] [address] [id number] [place] [address]- 4652 Jan, [facility] [place] [facility] [address] [id number] [place] [address]- 8536 Jan, [facility] [place] [facility] [address] [id number] [place] [address]- 6567 Jan, [facility] [place] [facility] [address] [id number] [place] [address]- 0608 Dec, [facility] [place] [facility] [address] [id number] [place] [address]- 5281 Dec, [facility] [place] [facility] [address] [id number] [place] [address]- 8614 Dec, [facility] [place] [facility] [address] [id number] [place] [address]- 1414 Dec, [facility] [place] [facility] [address] [id number] [place] [address]- 9754 Dec, [facility] [place] [facility] [address] [id number] [place] [address]- 6441 Dec, [facility] [place] [facility] [address] [id number] [place] [address]- 7665 Dec, [facility] [place] [facility] [address] [id number] [place] [address]- 5661 November, [facility] [place] [facility] [address] [id number] [place] [address]- 1259 November, [facility] [place] [facility] [address] [id number] [place] [address]- 9141 November, [facility] [place] [facility] [address] [id number] [place] [address]- 7063 Oct, [facility] [place] [facility] [address] [id number] [place] [address]- 8712 Oct, [facility] [place] [facility] [address] [id number] [place] [address]- 9281 Oct, [facility] [place] [facility] [address] [id number] [place] [address]- 5637 Sep, [facility] [place] [facility] [address] [id number] [place] [address]- 6842 Sep, [facility] [place] [facility] [address] [id number] [place] [address]- 1963 Sep, [facility] [place] [facility] [address] [id number] [place] [address]- 1321 Sep, [facility] [place] [facility] [address] [id number] [place] [address]- 1023 Sep, [facility] [place] [facility] [address] [id number] [place] [address]- 8364 Aug, [facility] [place] [facility] [address] [id number] [place] [address]- 6780 Aug, [facility] [place] [facility] [address] [id number] [place] [address]- 5203 Aug, [facility] [place] [facility] [address] [id number] [place] [address]- 7031 Aug, [facility] [place] [facility] [address] [id number] [place] [address]- 5644 Jul, [facility] [place] [facility] [address] [id number] [place] [address]- 4615 Jul, [facility] [place] [facility] [address] [id number] [place] [address]- 5341 28 Jul, 2011 [facility] [place] [facility] [address] [id number] [place] [address]- 7758 Jul, [facility] [place] [facility] [address] [id number] [place] [address]- 4979 18 Jul, 2011 [facility] [place] [facility] [address] [id number] [place] [address]- 5345 12 Jul, 2011 [facility] [place] [facility] [address] [id number] [place] [address]- 1542 11 Jul, 2011 [facility] [place] [facility] [address] [id number] [place] [address]- 5510 10 Jul, 2011 [facility] [place] [facility] [address] [id number] [place] [address]- 9767 16 Jun, 2011 [facility] [place] [facility] [address] [id number] [place] [address]- 5785 Jun, [facility] [place] [facility] [address] [id number] [place] [address]- 7362 12 Jun, 2011 [facility] [place] [facility] [address] [id number] [place] [address]- 8523 06 Jun, 2011 [facility] [place] [facility] [address] [id number] [place] [address]- 0761 14 May, 2011 [facility] [place] [facility] [address] [id number] [place] [address]- 6117 31 Apr, 2011 [facility] [place] [facility] [address] [id number] [place] [address]- 1342 13 Mar, 2011 [facility] [place] [facility] [address] [id number] [place] [address]- 3010 16 Dec, 2010 [facility] [place] [facility] [address] [id number] [place] [address] 10 Aug, 2010 [facility] [place] [facility] [address] [id number] [place] [address] 11 Jul, 2010 [facility] [place] [facility] [id number], [place] [address] Sep, [facility] [id number] [place] [address] Jul, [facility] [id number], [place] [address] Jun, [facility] [id number], [place] [address] Jun, [facility] [id number], [place] [address] May, [facility] [id number] [place] [address] Apr, [facility] [id number], [place] [address] Apr, [facility] [id number] [place] [address] Apr, [facility] [id number] [place] [address] Feb, [facility] [id number] [place] [address] Feb, [facility] [id number] [address] Jan, [facility] [address], [place] [address] November, IMMUNIZATIONS No Known Immunizations SOCIAL HISTORY Never Assessed REASON FOR VISIT Xray (walk-in) 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
--- OUTSIDE RECORDS SUMMARY | 2018-02-24 22:47 | XMS REPORT ---
Author Author LESLIE CELE [facility] Address [address] [place] [address] Care Team Providers Care Infusion Nurse Name Role Phone LESLIEALBERTO REIDHANY Unavailable PROBLEMS Type Condition ICD9-CM Code CEV03-XN Code Onset Dates Condition Status SNOMED Code Problem Menstrual migraine without status migrainosus, not intractable G43.829 Active 00096302 Problem Vaginal bleeding N93.9 Active 948193839 Problem Other chronic pain G89.29 Active 99025377 Problem Insomnia, unspecified type G47.00 Active 318585529 Problem History of anxiety Z86.59 Active 861657144 Problem Difficulty of mother performing R63.3 Active 882017096 Problem Rheumatoid arthritis with positive rheumatoid factor, involving unspecified site M05.9 Active [id number] ALLERGIES No Information ENCOUNTERS Encounter Location Date Diagnosis [facility] [id number] [place] [address] 27893- 0172 Jan, [facility] [id number] [place] [address] 75158- 6468 Jan, [facility] [id number] [place] [address] 91139- 5356 Jan, [facility] [id number] [place] [address] 15838- 2566 Jan, [facility] [id number] [place] [address] 43933- 6968 Dec, Pelvic pain R10.2 and Vaginal bleeding N93.9 [facility] [address] 77249- 2257 Dec, [facility] [id number] [place] [address] 21450- 4216 Dec, [place] [address] [address] Dec, Screening, deficiency anemia, iron Z13.0 [facility] [id number] [place] [address] 26911- 6448 Oct, Rheumatoid arthritis with positive rheumatoid factor, involving unspecified site M05.9 [facility] [id number] [place] [address] 86133- 9403 Oct, Rheumatoid arthritis with positive rheumatoid factor, involving unspecified site M05.9 [facility] [id number] [place] [address] 32154- 1803 Oct, Closed nondisplaced fracture of third metatarsal bone of right foot with routine healing, subsequent encounter S92.334D ; Closed nondisplaced fracture of second metatarsal bone of right foot with routine healing, subsequent encounter S92.324D ; Closed nondisplaced fracture of phalanx of left great toe with routine healing, unspecified phalanx, subsequent encounter S92.405D and Other chronic pain G89.29 [facility] [id number] [place] [address] 57311- 3004 Oct, Closed nondisplaced fracture of third metatarsal [...] positive rheumatoid factor, involving unspecified site M05.9 [facility] [id number] [place] [address] 80077- 4447 Oct, [facility] [id number] [place] [address] 59969- 4105 Oct, Injury of finger of right hand, initial encounter S69.91XA and Closed displaced fracture of distal phalanx of right middle finger, initial encounter S62.632A [facility] [id number] [address] Sep, Mastitis N61.0 and MRSA (methicillin resistant staph aureus ) culture positive Z22.322 [facility] [address] [address] 8930 Sep, [facility] [address] [address] 4949 Sep, Difficulty of mother performing R63.3 [facility] [address] [address] 8567 Sep, Acute mastitis of left breast N61.0 [facility] [address] [address] Sep, Abscess L02.91 [facility] [address] [address]- 4486 Sep, [facility] [place] [address] [address]- 1560 Jun, [facility] [address] [address]- 2199 Jun, care, subsequent in second trimester Z34.82 ; Placenta previa in second trimester O44.02 ; Abnormal quad screen O28.0 ; History of delivery, currently O09.219 and 24 weeks gestation of Z3A.24 [facility] [place] [address] [address]- 7164 16 May, 2017 Dental examination Z01.20 [facility] [id number] [address]- 8955 May, History of delivery, currently O09.219 [facility] [place] [id number] [place] [address] 06755- 0900 07 May, 2017 [facility] [id number] [address]- 2871 May, 20 weeks gestation of Z3A.20 ; care, subsequent in second trimester Z34.82 ; History of delivery, currently O09.219 and Abnormal quad screen O28.0 [facility] [id number] [place] [address] 57499- 5068 Apr, Elevated blood sugar level R73.9 and Glucosuria R81 [facility] [id number] [place] [address] 47643- 2734 Apr, Elevated blood sugar level R73.9 and Glucosuria R81 [facility] [place] [address] 19375- 9369 Apr, Elevated blood sugar level R73.9 [facility] [address] 11674- 1298 Apr, [facility] [id number] [place] [address] 71005- 0178 Apr, 16 weeks gestation of Z3A.16 ; care, subsequent in second trimester Z34.82 ; Encounter for immunization Z23 and Glucosuria R81 [facility] [id number] [place] [address] 00650- 8261 Mar, 12 weeks gestation of Z3A.12 [facility] [id number] [place] [address] 34040- 5461 Feb, [facility] [id number] [place] [address] 83784- 5400 Feb, care, subsequent in first trimester Z34.81 and 8 weeks gestation of Z3A.08 [facility] [id number] [place] [address] 16229- 4350 Jan, [facility] [place] [address] 17980- 3511 Jul, Encounter for test, result unknown Z32.00 [facility] [id number] [place] [address] 70972- 1443 Jun, control counseling Z30.9 and Insomnia, unspecified type G47.00 [facility] [id number] [place] [address] 71039- 2940 Sep, Encounter for test Z32.00 [facility] [id number] [place] [address] 40283- 6821 Jul, [facility] [address] 73778- 9929 Jul, Well woman exam Z01.419 ; Encounter for screening for malignant neoplasm of cervix Z12.4 ; Vaginal discharge N89.8 ; Routine screening for STI (sexually transmitted infection) Z11.3 ; Encounter for prescription for transdermal contraceptive Z30.49 ; Nausea with vomiting, unspecified R11.2 ; Menstrual migraine without status migrainosus, not intractable G43.829 and History of anxiety Z86.59 [facility] [place] [address] 05476- 0303 Jun, Encounter for surveillance of transdermal contraceptive Z30.49 and Sauceda F48.9 [facility] [id number] [place] [address] 77278- 0541 Oct, [facility] [id number] [place] [address] 98116- 9160 Oct, [facility] [id number] [place] [address] 33892- 1133 Jul, [facility] [id number] [place] [address] 60604- 0028 Jul, [facility] [id number] [place] [address] 08044- 9816 Jul, [facility] [address] 98625- 2243 Jul, [facility] [id number] [place] [address] 82002- 0133 Jul, [facility] [address] 56733- 1920 Jul, [facility] [place] [facility] [address] [id number] [place] [address] Jun, [facility] [place] [facility] [address] [id number] [place] [address]- 3882 Jun, [facility] [place] [facility] [address] [id number] [place] [address]- 2596 May, [facility] [place] [facility] [address] [id number] [place] [address]- 2552 May, [facility] [place] [facility] [address] [id number] [place] [address]- 2502 May, [facility] [place] [facility] [address] [id number] [place] [address]- 6958 May, [facility] [place] [facility] [address] [id number] [place] [address]- 8054 Feb, [facility] [place] [facility] [address] [id number] [place] [address]- 1022 Feb, [facility] [place] [facility] [address] [id number] [place] [address]- 7551 Feb, [facility] [place] [facility] [address] [id number] [place] [address]- 7743 Feb, [facility] [place] [facility] [address] [id number] [place] [address]- 4505 Oct, [facility] [place] [facility] [address] [id number] [place] [address]- 6425 Oct, [facility] [place] [facility] [address] [id number] [place] [address]- 5035 Sep, [facility] [place] [facility] [address] [id number] [place] [address]- 1173 Sep, [facility] [place] [facility] [address] [id number] [place] [address]- 7257 Sep, [facility] [place] [facility] [address] [id number] [place] [address] 2546 Sep, [facility] [address] [id number] [place] [address]- 8157 Aug, [facility] [place] [facility] [address] [id number] [place] [address]- 4146 Aug, [facility] [place] [facility] [address] [id number] [place] [address]- 4059 Jul, [facility] [place] [facility] [address] [id number] [place] [address]- 2354 Jul, [facility] [place] [facility] [address] [id number] [place] [address]- 5973 Jun, [facility] [place] [facility] [address] [id number] [place] [address]- 3391 Jun, [facility] [place] [facility] [address] [id number] [place] [address]- 5153 Jun, [facility] [address] [id number] [place] [address]- 1801 Jun, [facility] [place] [facility] [address] [id number] [place] [address]- 8180 Jun, [facility] [address] [facility] [id number] [place] 2397 May, [facility] [place] [facility] [address] [id number] [place] [address]- 6517 May, [facility] [place] [facility] [address] [id number] [place] [address]- 3851 May, [facility] [place] [facility] [address] [id number] [place] [address]- 9250 May, [facility] [place] [facility] [address] [id number] [place] [address]- 2546 Apr, [facility] [place] [facility] [address] [id number] [place] [address]- 7118 Apr, [facility] [address] [id number] [place] [address]- 9560 Apr, [facility] [place] [facility] [address] [id number] [place] [address]- 4887 Feb, [facility] [place] [facility] [address] [id number] [place] [address]- 7053 Jan, [facility] [place] [facility] [address] [id number] [place] [address]- 4003 Aug, [facility] [place] [facility] [address] [id number] [place] [address]- 1796 Aug, [facility] [place] [facility] [address] [id number] [place] [address]- 7660 Aug, [facility] [place] [facility] [address] [id number] [place] [address]- 6868 Aug, [facility] [place] [facility] [address] [id number] [place] [address]- 4994 Aug, [facility] [place] [facility] [address] [id number] [place] [address]- 8103 Aug, [facility] [place] [facility] [address] [id number] [place] [address]- 6802 Jul, [facility] [place] [facility] [address] [id number] [place] [address]- 9792 Jul, [facility] [place] [facility] [address] [id number] [place] [address]- 2029 Jul, [facility] [place] [facility] [address] [id number] [place] [address]- 4369 Jul, [facility] [place] [facility] [address] [id number] [place] [address]- 2285 Jul, [facility] [place] [facility] [address] [id number] [place] [address]- 5281 Jul, [facility] [place] [facility] [address] [id number] [place] [address]- 8424 08 Jul, 2012 [facility] [address] [id number] [place] [address]- 9819 Jun, [facility] [place] [facility] [address] [id number] [place] [address]- 2491 Jun, [facility] [address] [id number] [place] [address]- 0750 Jun, [facility] [address] [id number] [place] [address]- 1513 Jun, [facility] [address] [id number] [place] [address]- 3921 Jun, [facility] [address] [id number] [place] [address]- 9222 Jun, [facility] [address] [id number] [place] [address]- 2087 Jun, [facility] [address] [id number] [place] [address]- 0347 Jun, [facility] [address] [id number] [place] [address]- 0587 Jun, [facility] [address] [id number] [place] [address]- 8343 Jun, [facility] [place] [facility] [address] [id number] [place] [address]- 5890 May, [facility] [address] [id number] [place] [address]- 8096 May, [facility] [place] [facility] [address] [id number] [place] [address]- 1285 May, [facility] [place] [facility] [address] [id number] [place] [address]- 9802 May, [facility] [place] [place] [facility] [address] [id number] [place] [address]- 7021 May, [facility] [place] [facility] [address] [id number] [place] [address]- 1391 Apr, [facility] [place] [facility] [address] [id number] [place] [address]- 9109 Apr, [facility] [place] [facility] [address] [id number] [place] [address]- 0357 Apr, [facility] [place] [facility] [address] [id number] [place] [address]- 8251 Apr, [facility] [place] [facility] [address] [id number] [place] [address]- 0071 Apr, [facility] [place] [facility] [address] [id number] [place] [address]- 7225 25 Mar, 2012 [facility] [place] [facility] [address] [id number] [place] [address]- 3963 20 Mar, 2012 [facility] [place] [facility] [address] [id number] [place] [address]- 1111 12 Mar, 2012 [facility] [place] [facility] [address] [id number] [place] [address]- 6702 07 Mar, 2012 [facility] [place] [facility] [address] [id number] [address]- 3964 06 Mar, 2012 [facility] [place] [facility] [address] [id number] [address]- 3256 05 Mar, 2012 [facility] [place] [facility] [address] [id number] [address]- 9662 Feb, [facility] [place] [facility] [address] [id number] [place] [address]- 9389 Feb, [facility] [place] [facility] [address] [id number] [place] [address]- 4746 Feb, [facility] [place] [facility] [address] [id number] [address]- 3982 Feb, [facility] [place] [facility] [address] [id number] [address]- 7553 Feb, [facility] [place] [facility] [address] [id number] [place] [address]- 3171 Jan, [facility] [place] [facility] [address] [id number] [place] [address]- 5313 Jan, [facility] [place] [facility] [address] [id number] [place] [address]- 7434 Jan, [facility] [place] [facility] [address] [id number] [place] [address]- 2975 Jan, [facility] [place] [facility] [address] [id number] [place] [address]- 3525 Jan, [facility] [place] [facility] [address] [id number] [place] [address]- 7768 Jan, [facility] [place] [facility] [address] [id number] [place] [address]- 9568 Dec, [facility] [place] [facility] [address] [id number] [place] [address]- 8197 Dec, [facility] [place] [facility] [address] [id number] [place] [address]- 7724 Dec, [facility] [place] [facility] [address] [id number] [place] [address]- 3784 Dec, [facility] [place] [facility] [address] [id number] [place] [address]- 1189 Dec, [facility] [place] [facility] [address] [id number] [place] [address]- 5237 Dec, [facility] [place] [facility] [address] [id number] [place] [address]- 6837 Dec, [facility] [place] [facility] [address] [id number] [place] [address]- 2046 November, [facility] [place] [facility] [address] [id number] [place] [address]- 0840 November, [facility] [place] [facility] [address] [id number] [place] [address]- 4122 November, [facility] [place] [facility] [address] [id number] [place] [address]- 7120 Oct, [facility] [place] [facility] [address] [id number] [place] [address]- 0361 Oct, [facility] [place] [facility] [address] [id number] [place] [address]- 0487 Oct, [facility] [place] [facility] [address] [id number] [place] [address]- 3829 Sep, [facility] [place] [facility] [address] [id number] [place] [address]- 9859 Sep, [facility] [place] [facility] [address] [id number] [place] [address]- 4091 Sep, [facility] [place] [facility] [address] [id number] [place] [address]- 0135 Sep, [facility] [place] [facility] [address] [id number] [place] [address]- 9694 Sep, [facility] [place] [facility] [address] [id number] [place] [address]- 5184 Aug, [facility] [place] [facility] [address] [id number] [place] [address]- 3030 Aug, [facility] [place] [facility] [address] [id number] [place] [address]- 6306 Aug, [facility] [place] [facility] [address] [id number] [place] [address]- 2183 Aug, [facility] [place] [facility] [address] [id number] [place] [address]- 5761 Jul, [facility] [place] [facility] [address] [id number] [place] [address]- 5022 Jul, [facility] [place] [facility] [address] [id number] [place] [address]- 7921 28 Jul, 2011 [facility] [place] [facility] [address] [id number] [place] [address]- 3950 Jul, [facility] [place] [facility] [address] [id number] [place] [address]- 0706 18 Jul, 2011 [facility] [place] [facility] [address] [id number] [place] [address]- 3039 12 Jul, 2011 [facility] [place] [facility] [address] [id number] [place] [address]- 5011 11 Jul, 2011 [facility] [place] [facility] [address] [id number] [place] [address]- 2440 10 Jul, 2011 [facility] [place] [facility] [address] [id number] [place] [address]- 4197 16 Jun, 2011 [facility] [place] [facility] [address] [id number] [place] [address]- 8525 Jun, [facility] [place] [facility] [address] [id number] [place] [address]- 5337 12 Jun, 2011 [facility] [place] [facility] [address] [id number] [place] [address]- 2889 06 Jun, 2011 [facility] [place] [facility] [address] [id number] [place] [address]- 7859 14 May, 2011 [facility] [place] [facility] [address] [id number] [place] [address]- 9945 31 Apr, 2011 [facility] [place] [facility] [address] [id number] [place] [address] 13 Mar, 2011 [facility] [place] [facility] [address] [id number] [place] [address] 16 Dec, 2010 [facility] [place] [facility] [address] [id number] [place] [address] 10 Aug, 2010 [facility] [place] [facility] [address] [id number] [place] [address] 11 Jul, 2010 [facility] [place] [facility] [id number] [address] Sep, [facility] [id number] [address] Jul, [facility] [id number] [address] Jun, [facility] [id number] [address] Jun, [facility] [address] [address] May, [facility] [address] [address] Apr, [facility] [address] [address] Apr, [facility] [address] [address] Apr, [facility] [address] [address] Feb, [facility] [id number] [address] Feb, [facility] [id number] [address] Jan, [facility] [address] [address] November, IMMUNIZATIONS No Known Immunizations SOCIAL HISTORY Never Assessed REASON FOR VISIT Controlled refill request PLAN OF CARE VITAL SIGNS MEDICATIONS Unknown Medications RESULTS No Results PROCEDURES No Known procedures INSTRUCTIONS MEDICATIONS ADMINISTERED No Known Medications MEDICAL (GENERAL) HISTORY Type Description Date Medical History Arthritis Surgical History cholecystectomy Surgical History wisdom teeth extraction Surgical History Partial hysterectomy 2018 Hospitalization History child Hospitalization History colitis
--- OUTSIDE RECORDS SUMMARY | 2018-02-24 22:48 | XMS REPORT ---
Author Author [facility]LIE [facility] Address [address] [place] [address] Care Team Providers Care Warehouse Team Leader Name Role Phone LESLIEALBERTO REIDHANY Unavailable PROBLEMS Type Condition ICD9-CM Code YCN31-KY Code Onset Dates Condition Status SNOMED Code Problem Menstrual migraine without status migrainosus, not intractable G43.829 Active 54979283 Problem Vaginal bleeding N93.9 Active 637840233 Problem Other chronic pain G89.29 Active 04726886 Problem Insomnia, unspecified type G47.00 Active 761186345 Problem History of anxiety Z86.59 Active 482629865 Problem Difficulty of mother performing R63.3 Active 879656758 Problem Rheumatoid arthritis with positive rheumatoid factor, involving unspecified site M05.9 Active [id number] ALLERGIES No Information ENCOUNTERS Encounter Location Date Diagnosis [facility] [id number] [place] [address] 51745- 2710 Jan, [place] [id number] [place] [address] 06752- 0192 Jan, [facility] [id number] [place] [address] 47896- 9349 Jan, [facility] [id number] [place] [address] 61890- 5212 Jan, [facility] [id number] [place] [address] 23581- 1026 Dec, Pelvic pain R10.2 and Vaginal bleeding N93.9 [facility] [address] 01677- 5917 Dec, [facility] [id number] [place] [address] 02377- 0534 Dec, [place] [address] [address] Dec, Screening, deficiency anemia, iron Z13.0 [place] [id number] [place] [address] 71584- 1584 Oct, Rheumatoid arthritis with positive rheumatoid factor, involving unspecified site M05.9 [place] [id number] [place] [address] 94936- 9064 Oct, Rheumatoid arthritis with positive rheumatoid factor, involving unspecified site M05.9 [place] [id number] [place] [address] 84287- 1860 Oct, Closed nondisplaced fracture of third metatarsal bone of right foot with routine healing, subsequent encounter S92.334D ; Closed nondisplaced fracture of second metatarsal bone of right foot with routine healing, subsequent encounter S92.324D ; Closed nondisplaced fracture of phalanx of left great toe with routine healing, unspecified phalanx, subsequent encounter S92.405D and Other chronic pain G89.29 [place] [id number] [place] [address] 94927- 6113 Oct, Closed nondisplaced fracture of third metatarsal [...] positive rheumatoid factor, involving unspecified site M05.9 [place] [id number] [place] [address] 96837- 1689 Oct, [place] [id number] [place] [address] 41519- 5283 Oct, Injury of finger of right hand, initial encounter S69.91XA and Closed displaced fracture of distal phalanx of right middle finger, initial encounter S62.632A [place] [id number] [address] 9763 Sep, Mastitis N61.0 and MRSA (methicillin resistant staph aureus ) culture positive Z22.322 [place] [address] [address]- 7175 Sep, [facility] [address] [address]- 3267 Sep, Difficulty of mother performing R63.3 [place] [address] [address]- 7928 Sep, Acute mastitis of left breast N61.0 [facility] [address] [address] Sep, Abscess L02.91 [place] [address] [address]- 5545 Sep, [place] [address] [address]- 3961 Jun, [place] [address] [address]- 7084 Jun, care, subsequent in second trimester Z34.82 ; Placenta previa in second trimester O44.02 ; Abnormal quad screen O28.0 ; History of delivery, currently O09.219 and 24 weeks gestation of Z3A.24 [place] [address] [address]- 0008 16 May, 2017 Dental examination Z01.20 [place] [id number] [address]- 8646 May, History of delivery, currently O09.219 [place] [id number] [place] [address] 25434- 5844 07 May, 2017 [place] [id number] [address]- 3609 May, 20 weeks gestation of Z3A.20 ; care, subsequent in second trimester Z34.82 ; History of delivery, currently O09.219 and Abnormal quad screen O28.0 [place] [id number] [place] [address] 49276- 0602 Apr, Elevated blood sugar level R73.9 and Glucosuria R81 [place] [id number] [place] [address] 39102- 3590 Apr, Elevated blood sugar level R73.9 and Glucosuria R81 [place] [address] 55175- 3232 Apr, Elevated blood sugar level R73.9 [place] [address] 67694- 4095 Apr, [place] [id number] [place] [address] 95895- 7369 Apr, 16 weeks gestation of Z3A.16 ; care, subsequent in second trimester Z34.82 ; Encounter for immunization Z23 and Glucosuria R81 [place] [id number] [place] [address] 31119- 5179 Mar, 12 weeks gestation of Z3A.12 [place] [id number] [place] [address] 39501- 4475 Feb, [place] [id number] [place] [address] 27453- 4150 Feb, care, subsequent in first trimester Z34.81 and 8 weeks gestation of Z3A.08 [place] [id number] [place] [address] 27805- 2856 Jan, [place] [address] 16605- 8767 Jul, Encounter for test, result unknown Z32.00 [place] [id number] [place] [address] 00857- 3020 Jun, control counseling Z30.9 and Insomnia, unspecified type G47.00 [facility] [id number] [place] [address] 92574- 0108 Sep, Encounter for test Z32.00 [facility] [id number] [place] [address] 18099- 3089 Jul, [facility] [address] 14053- 4978 Jul, Well woman exam Z01.419 ; Encounter for screening for malignant neoplasm of cervix Z12.4 ; Vaginal discharge N89.8 ; Routine screening for STI (sexually transmitted infection) Z11.3 ; Encounter for prescription for transdermal contraceptive Z30.49 ; Nausea with vomiting, unspecified R11.2 ; Menstrual migraine without status migrainosus, not intractable G43.829 and History of anxiety Z86.59 [place] [address] 80303- 8329 Jun, Encounter for surveillance of transdermal contraceptive Z30.49 and Sauceda F48.9 [facility] [id number] [place] [address] 50581- 7065 Oct, [facility] [id number] [place] [address] 60836- 1864 Oct, [facility] [id number] [place] [address] 33782- 0030 Jul, [facility] [id number] [place] [address] 14208- 4527 Jul, [facility] [id number] [place] [address] 64137- 1077 Jul, [facility] [address] 00357- 2779 Jul, [facility] [id number] [place] [address] 04356- 4282 Jul, [facility] [address] 29402- 0654 Jul, [facility] [place] [facility] [address] [id number] [place] 2223 Jun, [facility] [place] [facility] [address] [id number] [place] [address]- 2339 Jun, [facility] [place] [facility] [address] [id number] [place] [address]- 6258 May, [facility] [place] [facility] [address] [id number] [place] [address]- 7059 May, [facility] [place] [facility] [address] [id number] [place] [address]- 8489 May, [facility] [place] [facility] [address] [id number] [place] [address]- 0248 May, [facility] [place] [facility] [address] [id number] [place] [address]- 2777 Feb, [facility] [place] [facility] [address] [id number] [place] [address]- 0057 Feb, [facility] [place] [facility] [address] [id number] [place] [address]- 3352 Feb, [facility] [place] [facility] [address] [id number] [place] [address]- 1777 Feb, [facility] [place] [facility] [address] [id number] [place] [address]- 9836 Oct, [facility] [place] [facility] [address] [id number] [place] [address]- 6859 Oct, [facility] [place] [facility] [address] [id number] [place] [address]- 7151 Sep, [facility] [place] [facility] [address] [id number] [place] [address]- 4338 Sep, [facility] [place] [facility] [address] [id number] [place] [address]- 6010 Sep, [facility] [place] [facility] [address] [id number] [place] [address] 2546 Sep, [facility] [address] [id number] [place] [address]- 0375 Aug, [facility] [place] [facility] [address] [id number] [place] [address]- 0206 Aug, [facility] [place] [facility] [address] [id number] [place] [address]- 1721 Jul, [facility] [place] [facility] [address] [id number] [place] [address]- 8055 Jul, [facility] [place] [facility] [address] [id number] [place] [address]- 5906 Jun, [facility] [place] [facility] [address] [id number] [place] [address]- 9015 Jun, [facility] [place] [facility] [address] [id number] [place] [address]- 7662 Jun, [facility] [address] [id number] [place] [address]- 1760 Jun, [facility] [place] [facility] [address] [id number] [place] [address]- 7140 Jun, [facility] [address] [facility] [id number] [place] 0656 May, [facility] [place] [facility] [address] [id number] [place] [address]- 4236 May, [facility] [place] [facility] [address] [id number] [place] [address]- 9867 May, [facility] [place] [facility] [address] [id number] [place] [address]- 9421 May, [facility] [place] [facility] [address] [id number] [place] [address]- 2546 Apr, [facility] [place] [facility] [address] [id number] [place] [address]- 2171 Apr, [facility] [address] [id number] [place] [address]- 2606 Apr, [facility] [place] [facility] [address] [id number] [place] [address]- 5907 Feb, [facility] [place] [facility] [address] [id number] [place] [address]- 1138 Jan, [facility] [place] [facility] [address] [id number] [place] [address]- 2408 Aug, [facility] [place] [facility] [address] [id number] [place] [address]- 6214 Aug, [facility] [place] [facility] [address] [id number] [place] [address]- 0336 Aug, [facility] [place] [facility] [address] [id number] [place] [address]- 4046 Aug, [facility] [place] [facility] [address] [id number] [place] [address]- 8079 Aug, [facility] [place] [facility] [address] [id number] [place] [address]- 7442 Aug, [facility] [place] [facility] [address] [id number] [place] [address]- 7728 Jul, [facility] [place] [facility] [address] [id number] [place] [address]- 8553 Jul, [facility] [place] [facility] [address] [id number] [place] [address]- 4602 Jul, [facility] [place] [facility] [address] [id number] [place] [address]- 5364 Jul, [facility] [place] [facility] [address] [id number] [place] [address]- 5472 Jul, [facility] [place] [facility] [address] [id number] [place] [address]- 6142 Jul, [facility] [place] [facility] [address] [id number] [place] [address]- 8897 08 Jul, 2012 [facility] [address] [id number] [place] [address]- 8542 Jun, [facility] [place] [facility] [address] [id number] [place] [address]- 4556 Jun, [facility] [address] [id number] [place] [address]- 0175 Jun, [facility] [address] [id number] [place] [address]- 1313 Jun, [facility] [address] [id number] [place] [address]- 0953 Jun, [facility] [address] [id number] [place] [address]- 9174 Jun, [facility] [address] [id number] [place] [address]- 9083 Jun, [facility] [address] [id number] [place] [address]- 6751 Jun, [facility] [address] [id number] [place] [address]- 7262 Jun, [facility] [address] [id number] [place] [address]- 5360 Jun, [facility] [place] [facility] [address] [id number] [place] [address]- 8670 May, [facility] [address] [id number] [place] [address]- 1615 May, [facility] [place] [facility] [address] [id number] [place] [address]- 1067 May, [facility] [place] [facility] [address] [id number] [place] [address]- 6561 May, [facility] [place] [facility] [address] [id number] [place] [address]- 7639 May, [facility] [place] [facility] [address] [id number] [place] [address]- 5947 Apr, [facility] [place] [facility] [address] [id number] [place] [address]- 2694 Apr, [facility] [place] [facility] [address] [id number] [place] [address]- 4674 Apr, [facility] [place] [facility] [address] [id number] [place] [address]- 7786 Apr, [facility] [place] [facility] [address] [id number] [place] [address]- 1399 Apr, [facility] [place] [facility] [address] [id number] [place] [address]- 3464 25 Mar, 2012 [facility] [place] [facility] [address] [id number] [place] [address]- 0165 20 Mar, 2012 [facility] [place] [facility] [address] [id number] [place] [address]- 6424 12 Mar, 2012 [facility] [place] [facility] [address] [id number] [place] [address]- 3727 07 Mar, 2012 [facility] [place] [facility] [address] [id number] [address]- 3089 06 Mar, 2012 [facility] [place] [facility] [address] [id number] [address]- 3038 05 Mar, 2012 [facility] [place] [facility] [address] [id number] [address]- 0582 Feb, [facility] [place] [facility] [address] [id number] [place] [address]- 0070 Feb, [facility] [place] [facility] [address] [id number] [place] [address]- 0916 Feb, [facility] [place] [facility] [address] [id number] [address]- 1028 Feb, [facility] [place] [facility] [address] [id number] [place] [address]- 6361 Feb, [facility] [place] [facility] [address] [id number] [place] [address]- 7175 Jan, [facility] [place] [facility] [address] [id number] [place] [address]- 6750 Jan, [facility] [place] [facility] [address] [id number] [place] [address]- 8220 Jan, [facility] [place] [facility] [address] [id number] [place] [address]- 2439 Jan, [facility] [place] [facility] [address] [id number] [place] [address]- 2638 Jan, [facility] [place] [facility] [address] [id number] [place] [address]- 6728 Jan, [facility] [place] [facility] [address] [id number] [place] [address]- 1760 Dec, [facility] [place] [facility] [address] [id number] [place] [address]- 1004 Dec, [facility] [place] [facility] [address] [id number] [place] [address]- 0109 Dec, [facility] [place] [facility] [address] [id number] [place] [address]- 5154 Dec, [facility] [place] [facility] [address] [id number] [place] [address]- 5096 Dec, [facility] [place] [facility] [address] [id number] [place] [address]- 7022 Dec, [facility] [place] [facility] [address] [id number] [place] [address]- 1565 Dec, [facility] [place] [facility] [address] [id number] [place] [address]- 3086 November, [facility] [place] [facility] [address] [id number] [place] [address]- 3546 November, [facility] [place] [facility] [address] [id number] [place] [address]- 4368 November, [facility] [place] [facility] [address] [id number] [place] [address]- 5360 Oct, [facility] [place] [facility] [address] [id number] [place] [address]- 9762 Oct, [facility] [place] [facility] [address] [id number] [place] [address]- 6729 Oct, [facility] [place] [facility] [address] [id number] [place] [address]- 8792 Sep, [facility] [place] [facility] [address] [id number] [place] [address]- 7016 Sep, [facility] [place] [facility] [address] [id number] [place] [address]- 4395 Sep, [facility] [place] [facility] [address] [id number] [place] [address]- 6741 Sep, [facility] [place] [facility] [address] [id number] [place] [address]- 9158 Sep, [facility] [place] [facility] [address] [id number] [place] [address]- 3418 Aug, [facility] [place] [facility] [address] [id number] [place] [address]- 9625 Aug, [facility] [place] [facility] [address] [id number] [place] [address]- 8441 Aug, [facility] [place] [facility] [address] [id number] [place] [address]- 9607 Aug, [facility] [place] [facility] [address] [id number] [place] [address]- 4706 Jul, [facility] [place] [facility] [address] [id number] [place] [address]- 0550 Jul, [facility] [place] [facility] [address] [id number] [place] [address]- 3813 28 Jul, 2011 [facility] [place] [facility] [address] [id number] [place] [address]- 5257 Jul, [facility] [place] [facility] [address] [id number] [place] [address]- 2179 18 Jul, 2011 [facility] [place] [facility] [address] [id number] [place] [address]- 2063 12 Jul, 2011 [facility] [place] [facility] [address] [id number] [place] [address]- 7800 11 Jul, 2011 [facility] [place] [facility] [address] [id number] [place] [address]- 6589 10 Jul, 2011 [facility] [place] [facility] [address] [id number] [place] [address]- 6604 16 Jun, 2011 [facility] [place] [facility] [address] [id number] [place] [address]- 7515 Jun, [facility] [place] [facility] [address] [id number] [place] [address]- 4547 12 Jun, 2011 [facility] [place] [facility] [address] [id number] [place] [address]- 3435 06 Jun, 2011 [facility] [place] [facility] [address] [id number] [place] [address]- 4851 14 May, 2011 [facility] [place] [facility] [address] [id number] [place] [address]- 7116 31 Apr, 2011 [facility] [place] [facility] [address] [id number] [place] [address]- 1680 13 Mar, 2011 [facility] [place] [facility] [address] [id number] [place] [address]- 1477 16 Dec, 2010 [facility] [place] [facility] [address] [id number] [place] [address]- 4955 10 Aug, 2010 [facility] [place] [facility] [address] [id number] [place] [address]- 3271 11 Jul, 2010 [facility] [place] [facility] [address] [address]- 8626 Sep, [facility] [address] [address]- 2213 Jul, [facility] [address] [address]- 4611 Jun, [facility] [address] [address]- 0946 Jun, [facility] [address] [address]- 6593 May, [facility] [id number] [place] [address] 34843- 0307 Apr, [facility] [id number] [address] Apr, [facility] [id number] [place] [address] Apr, [facility] [address] [address] Feb, [facility] [address] [address] Feb, [facility] [id number] [address] Jan, [facility] [id number] [address] November, IMMUNIZATIONS No Known Immunizations SOCIAL HISTORY Never Assessed REASON FOR VISIT Presumptive Eligibility-APPROVED PLAN OF CARE VITAL SIGNS MEDICATIONS Unknown Medications RESULTS No Results PROCEDURES No Known procedures INSTRUCTIONS MEDICATIONS ADMINISTERED No Known Medications MEDICAL (GENERAL) HISTORY Type Description Date Medical History Arthritis Surgical History cholecystectomy Surgical History wisdom teeth extraction Surgical History Partial hysterectomy 2018 Hospitalization History child Hospitalization History colitis
--- OUTSIDE RECORDS SUMMARY | 2018-02-24 22:48 | XMS REPORT ---
Author Author LESLIE CELE [facility] Address [address] [place] [address] Care Team Providers Care Air Pollution Compliance Inspector Name Role Phone LESLIEALBERTOCEEL Unavailable PROBLEMS Type Condition ICD9-CM Code OID34-WB Code Onset Dates Condition Status SNOMED Code Problem Menstrual migraine without status migrainosus, not intractable G43.829 Active 37083453 Problem Vaginal bleeding N93.9 Active 343549999 Problem Other chronic pain G89.29 Active 47263507 Problem Insomnia, unspecified type G47.00 Active 042434548 Problem History of anxiety Z86.59 Active 773782017 Problem Difficulty of mother performing R63.3 Active 376353999 Problem Rheumatoid arthritis with positive rheumatoid factor, involving unspecified site M05.9 Active 797087083 ALLERGIES Substance Reaction Event Type Date Status Tylenol/Codeine #3 Unknown Drug Allergy Oct, Active Tramadol HCl vomiting Drug Allergy Oct, Active ENCOUNTERS Encounter Location Date Diagnosis [place] [id number] [place] [address] 16376- 5773 Jan, [place] [address] [place] [id number] [place] [address] 36611- 1372 Jan, [facility] [address] [place] [id number] [place] [address] 39692- 4064 Jan, [facility] [id number] [place] [address] 03242- 9006 Jan, [place] [address] [place] [address] [id number] [place] [address] 02437- 6131 Dec, Pelvic pain R10.2 and Vaginal bleeding N93.9 [facility] [address] [id number] [place] [address] 90663- 9837 Dec, [place] [address] [address] 1279 Dec, [place] [address] [place] [address] 92302- 0085 Dec, Screening, deficiency anemia, iron Z13.0 [place] [address] [place] [address] 58411- 5927 Oct, Rheumatoid arthritis with positive rheumatoid factor, involving unspecified site M05.9 [place] [address] [place] [address] 92473- 2552 Oct, Rheumatoid arthritis with positive rheumatoid factor, involving unspecified site M05.9 [place] [address] [place] [address] 33190- 4280 Oct, Closed nondisplaced fracture of third metatarsal bone of right foot with routine healing, subsequent encounter S92.334D ; Closed nondisplaced fracture of second metatarsal bone of right foot with routine healing, subsequent encounter S92.324D ; Closed nondisplaced fracture of phalanx of left great toe with routine healing, unspecified phalanx, subsequent encounter S92.405D and Other chronic pain G89.29 [place] [address] [place] [address] 13853- 1003 17 Oct, 2017 Closed nondisplaced fracture of [...] positive rheumatoid factor, involving unspecified site M05.9 [place] [address] [place] [address] 23386- 8498 Oct, [place] [address] [place] [id number] [address]- 8758 Oct, Injury of finger of right hand, initial encounter S69.91XA and Closed displaced fracture of distal phalanx of right middle finger, initial encounter S62.632A [facility] [address] [place] [address] 16424- 6218 Sep, Mastitis N61.0 and MRSA (methicillin resistant staph aureus ) culture positive Z22.322 [place] [address] [place] [address] 68513- 5602 Sep, [facility] [address] [place] [id number] [place] [address] 46982- 3002 Sep, Difficulty of mother performing R63.3 [place] [address] [place] [id number] [place] [address] 14493- 9658 Sep, Acute mastitis of left breast N61.0 [facility] [address] [place] [address] 13460 -4566 Sep, Abscess L02.91 [place] [address] [place] [id number] [place] [address] 74800- 3271 Sep, [facility] [address] [place] [address] 25868- 0181 Jun, [place] [address] [place] [address] 57012- 3099 05 Jun, 2017 care, subsequent in second trimester Z34.82 ; Placenta previa in second trimester O44.02 ; Abnormal quad screen O28.0 ; History of delivery, currently O09.219 and 24 weeks gestation of Z3A.24 [place] [address] [address]- 5960 16 May, 2017 Dental examination Z01.20 [place] [address] [place] [address] 76531- 8139 08 May, 2017 History of delivery, currently O09.219 [place] [address] [place] [address] 10717- 7643 07 May, 2017 [place] [address] [place] [id number] [place] [address] 27901- 4556 May, 20 weeks gestation of Z3A.20 ; care, subsequent in second trimester Z34.82 ; History of delivery, currently O09.219 and Abnormal quad screen O28.0 [place] [id number] [place] [address] 93107- 7760 Apr, Elevated blood sugar level R73.9 and Glucosuria R81 [address] 21343- 2342 Apr, Elevated blood sugar level R73.9 and Glucosuria R[address] 72514- 9462 Apr, Elevated blood sugar level R73.9 [place] [id number] [place] [address] 95915- 7841 Apr, [address] 04105- 9550 Apr, 16 weeks gestation of Z3A.16 ; care, subsequent in second trimester Z34.82 ; Encounter for immunization Z23 and Glucosuria R81 [place] [id number] [place] [address] 26177- 3125 Mar, 12 weeks gestation of Z3A.12 [place] [id number] [place] [address] 23960- 0657 Feb, [address] 25620- 1777 Feb, care, subsequent in first trimester Z34.81 and 8 weeks gestation of Z3A.[address] 21459- 6936 Jan, [place] [id number] [place] [address] 82801- 9819 Jul, Encounter for test, result unknown Z32.00 [place] [address] [place] [id number] [place] [address] 78063- 7581 Jun, control counseling Z30.9 and Insomnia, unspecified type G47.00 [facility] [address] [place] [id number] [place] [address] 90242- 5833 Sep, Encounter for test Z32.00 [place] [address] 84176- 5310 Jul, [place] [address] 22952- 9417 Jul, Well woman exam Z01.419 ; Encounter for screening for malignant neoplasm of cervix Z12.4 ; Vaginal discharge N89.8 ; Routine screening for STI (sexually transmitted infection) Z11.3 ; Encounter for prescription for transdermal contraceptive Z30.49 ; Nausea with vomiting, unspecified R11.2 ; Menstrual migraine without status migrainosus, not intractable G43.829 and History of anxiety Z86.59 [place] [address] 44065- 7949 Jun, Encounter for surveillance of transdermal contraceptive Z30.49 and Sauceda F48.9 [place] [address] [place] [id number] [place] [address] 70308- 6385 Oct, [place] [address] [place] [id number] [place] [address] 21530- 9809 Oct, [place] [address] [place] [id number] [place] [address] 91149- 2756 Jul, [place] [address] [place] [id number] [place] [address] 27077- 7146 Jul, [place] [address] 95168- 9428 Jul, [place] [address] [place] [id number] [place] [address] 56123- 4141 Jul, [place] [address] 62994- 0357 Jul, [facility] [place] [facility] [address] [id number] [place] [address]- 5928 Jul, [facility] [place] [facility] [address] [id number] [place] [address]- 3996 Jun, [facility] [place] [facility] [address] [id number] [place] [address]- 1346 Jun, [facility] [place] [facility] [address] [id number] [place] 7132 May, [facility] [place] [facility] [address] [id number] [place] [address]- 5226 May, [facility] [place] [facility] [address] [id number] [place] [address]- 0211 May, [facility] [place] [facility] [address] [id number] [place] [address]- 8802 May, [facility] [place] [facility] [address] [id number] [place] [address]- 7238 Feb, [facility] [place] [facility] [address] [id number] [place] [address]- 8486 Feb, [facility] [place] [facility] [address] [id number] [place] [address]- 0104 Feb, [facility] [place] [facility] [address] [id number] [place] [address]- 4054 Feb, [facility] [place] [facility] [address] [id number] [place] [address]- 3679 Oct, [facility] [place] [facility] [address] [id number] [place] [address]- 7143 Oct, [facility] [place] [facility] [address] [id number] [place] [address]- 0483 Sep, [facility] [place] [facility] [address] [id number] [place] [address]- 7525 Sep, [facility] [place] [facility] [address] [id number] [place] [address]- 5536 Sep, [facility] [address] [id number] [place] [address]- 3646 Sep, [facility] [place] [facility] [address] [id number] [place] [address]- 3326 Aug, [facility] [address] [id number] [place] [address]- 0966 Aug, [facility] [place] [facility] [address] [id number] [place] [address]- 0181 Jul, [facility] [address] [id number] [place] [address]- 8055 Jul, [facility] [address] [id number] [place] [address]- 8408 Jun, [facility] [place] [facility] [address] [id number] [place] [address]- 4336 Jun, [facility] [address] [id number] [place] [address]- 7831 Jun, [facility] [address] [id number] [place] [address]- 5386 Jun, [facility] [address] [facility] [id number] [place] [address]- 9247 Jun, [facility] [place] [facility] [address] [id number] [place] [address]- 9148 30 May, 2013 [facility] [place] [facility] [address] [id number] [place] [address]- 3684 May, [facility] [place] [facility] [address] [id number] [place] [address]- 9176 May, [facility] [place] [facility] [address] [id number] [place] [address]- 1136 May, [facility] [place] [facility] [address] [id number] [place] [address]- 1551 Apr, [facility] [address] [id number] [place] [address]- 9829 Apr, [facility] [place] [facility] [address] [id number] [place] [address]- 5329 Apr, [facility] [address] [id number] [place] [address]- 8920 Feb, [facility] [place] [facility] [address] [id number] [place] [address]- 8530 Jan, [facility] [address] [id number] [place] [address]- 8712 Aug, [facility] [place] [facility] [address] [id number] [place] [address]- 0476 Aug, [facility] [place] [facility] [address] [id number] [place] [address]- 3214 Aug, [facility] [place] [facility] [address] [id number] [place] [address]- 9053 Aug, [facility] [place] [facility] [address] [id number] [place] [address]- 4435 Aug, [facility] [place] [facility] [address] [id number] [place] [address]- 3358 Aug, [facility] [place] [facility] [address] [id number] [place] [address]- 7721 Jul, [facility] [place] [facility] [address] [id number] [place] [address]- 0354 Jul, [facility] [place] [facility] [address] [id number] [place] [address]- 4683 Jul, [facility] [place] [facility] [address] [id number] [place] [address]- 5029 Jul, [facility] [place] [facility] [address] [id number] [place] [address]- 8046 Jul, [facility] [place] [facility] [address] [id number] [place] [address]- 9654 Jul, [facility] [address] [id number] [place] [address]- 9555 Jul, [facility] [address] [id number] [place] 9500 Jun, [facility] [address] [id number] [place] [address]- 6621 Jun, [facility] [address] [id number] [place] [address]- 2286 Jun, [facility] [address] [id number] [place] [address]- 5703 Jun, [facility] [address] [id number] [place] [address]- 2232 Jun, [facility] [address] [id number] [place] [address]- 8400 Jun, [facility] [address] [id number] [place] [address]- 8213 Jun, [facility] [address] [id number] [place] [address]- 1110 Jun, [facility] [address] [id number] [place] [address]- 4275 Jun, [facility] [address] [id number] [place] [address]- 4237 Jun, [facility] [address] [id number] [place] [address]- 6290 May, [facility] [place] [facility] [address] [id number] [place] [address]- 5823 May, [facility] [place] [facility] [address] [id number] [place] [address]- 6131 May, [facility] [address] [id number] [place] [address]- 8574 May, [facility] [place] [facility] [address] [id number] [place] [address]- 1677 May, [facility] [place] [facility] [address] [id number] [place] [address]- 6912 Apr, [facility] [place] [facility] [address] [id number] [place] [address]- 1089 Apr, [facility] [place] [facility] [address] [id number] [place] [address]- 8637 Apr, [facility] [place] [facility] [address] [id number] [place] [address]- 4444 Apr, [facility] [place] [facility] [address] [id number] [place] [address]- 6934 Apr, [facility] [place] [facility] [address] [id number] [place] [address]- 1683 25 Mar, 2012 [facility] [place] [facility] [address] [id number] [place] [address]- 5516 20 Mar, 2012 [facility] [place] [facility] [address] [id number] [place] [address]- 9965 12 Mar, 2012 [facility] [place] [facility] [address] [id number] [place] [address]- 7055 07 Mar, 2012 [facility] [place] [facility] [address] [id number] [place] [address]- 9810 06 Mar, 2012 [facility] [place] [facility] [address] [id number] [address]- 8052 05 Mar, 2012 [facility] [place] [facility] [address] [id number] [place] [address]- 8216 Feb, [facility] [place] [facility] [address] [id number] [place] [address]- 8011 Feb, [facility] [place] [facility] [address] [id number] [place] [address]- 4157 Feb, [facility] [place] [facility] [address] [id number] [address]- 8300 Feb, [facility] [place] [facility] [address] [id number] [place] [address]- 1313 Feb, [facility] [place] [facility] [address] [id number] [place] [address]- 1533 Jan, [facility] [place] [facility] [address] [id number] [place] [address]- 5376 Jan, [facility] [place] [facility] [address] [id number] [place] [address]- 7093 Jan, [facility] [place] [facility] [address] [id number] [place] [address]- 1688 Jan, [facility] [place] [facility] [address] [id number] [place] [address]- 1259 Jan, [facility] [place] [facility] [address] [id number] [place] [address]- 2041 Jan, [facility] [place] [facility] [address] [id number] [place] [address]- 1893 Dec, [facility] [place] [facility] [address] [id number] [place] [address]- 9652 Dec, [facility] [place] [facility] [address] [id number] [place] [address]- 4464 Dec, [facility] [place] [facility] [address] [id number] [place] [address]- 6772 Dec, [facility] [place] [facility] [address] [id number] [place] [address]- 7840 Dec, [facility] [place] [facility] [address] [id number] [place] [address]- 8107 Dec, [facility] [place] [facility] [address] [id number] [place] [address]- 9480 Dec, [facility] [place] [facility] [address] [id number] [place] [address]- 8445 November, [facility] [place] [facility] [address] [id number] [place] [address]- 8747 November, [facility] [address] [id number] [place] [address]- 7534 November, [facility] [place] [facility] [address] [id number] [place] [address]- 0052 Oct, [facility] [place] [facility] [address] [id number] [place] [address]- 6102 Oct, [facility] [place] [facility] [address] [id number] [place] [address]- 8055 Oct, [facility] [place] [facility] [address] [id number] [place] [address]- 1325 Sep, [facility] [place] [facility] [address] [id number] [place] [address]- 9163 Sep, [facility] [place] [facility] [address] [id number] [place] [address]- 2574 Sep, [facility] [address] [id number] [place] [address]- 1049 Sep, [facility] [place] [facility] [address] [id number] [place] [address]- 5589 Sep, [facility] [place] [facility] [address] [id number] [place] [address]- 8839 Aug, [facility] [place] [facility] [address] [id number] [place] [address]- 8725 Aug, [facility] [place] [facility] [address] [id number] [place] [address]- 7886 Aug, [facility] [place] [facility] [address] [id number] [place] [address]- 9411 Aug, [facility] [place] [facility] [address] [id number] [place] [address]- 7463 Jul, [facility] [place] [facility] [address] [id number] [place] [address]- 1931 29 Jul, 2011 [facility] [place] [facility] [address] [id number] [place] [address]- 0599 28 Jul, 2011 [facility] [place] [facility] [address] [id number] [place] [address]- 1667 Jul, [facility] [place] [facility] [address] [id number] [place] [address]- 4722 18 Jul, 2011 [facility] [place] [facility] [address] [id number] [place] [address]- 2565 Jul, [facility] [place] [facility] [address] [id number] [place] [address]- 9403 Jul, [facility] [place] [facility] [address] [id number] [place] [address]- 8942 Jul, [facility] [place] [facility] [address] [id number] [place] [address]- 4733 16 Jun, 2011 [facility] [place] [facility] [address] [id number] [place] [address]- 3223 13 Jun, 2011 [facility] [place] [facility] [address] [id number] [place] [address]- 9889 Jun, [facility] [place] [facility] [address] [id number] [place] [address]- 4259 06 Jun, 2011 [facility] [place] [facility] [address] [id number] [address]- 3667 14 May, 2011 [facility] [place] [facility] [address] [id number] [place] [address]- 7919 31 Apr, 2011 [facility] [place] [facility] [address] [id number] [place] [address]- 5715 13 Mar, 2011 [facility] [place] [facility] [address] [id number] [place] [address]- 0000 16 Dec, 2010 [facility] [place] [facility] [address] [id number] [place] [address]- 4130 10 Aug, 2010 [facility] [place] [facility] [address] [address]- 2416 11 Jul, 2010 [facility] [address] [address]- 4009 Sep, [facility] [address] [address]- 0696 Jul, [facility] [address] [address]- 1063 Jun, [facility] [address] [address]- 5368 Jun, [facility] [id number] [place] [address] 49613- 0012 May, [facility] [address] [address]- 2420 Apr, [facility] [address] [address]- 1346 Apr, [facility] [address] [address]- 9836 Apr, [facility] [address] [address] Feb, [facility] [address] [address] Feb, [facility] [address] [address] Jan, [facility] [id number] [address] November, IMMUNIZATIONS No Known Immunizations SOCIAL HISTORY Never Assessed REASON FOR VISIT midle finger pain on rt hand x yestarday -- benny willis PLAN OF CARE Activity Details Follow Up prn after Ortho visit Reason: VITAL SIGNS Height 64 in 2017-10-23 Weight 107.5 lbs 2017-10-23 Temperature 98.0 degrees Fahrenheit 2017-10-23 Heart Rate 68 bpm 2017-10-23 Respiratory Rate 18 2017-10-23 BMI 18.45 kg/m2 2017-10-23 Blood pressure systolic 104 mmHg 2017-10-23 Blood pressure diastolic 68 mmHg 2017-10-23 MEDICATIONS Medication Instructions Dosage Frequency Start Date End Date Duration Status Amitriptyline HCl 25 MG Orally Once a day 1 tablet 24h 12 Sep, 2017 30 day(s) Not-Taking Neurontin 300 MG Orally 2 times a day 1 capsule 12h 18 Feb, 2014 Not -Taking Hydrocodone-Acetaminophen 5-325 mg Orally every 4 hrs 1 tablet as needed 4h Oct, Active One Daily Not-Taking Flexeril Not-Taking Ibuprofen 800 MG Orally Three times a day 1 tablet with food or milk as needed 8h Not-Taking RESULTS Name Result Date Reference Range Xray : Finger(s), Right 2 views (IN HOUSE) 2017-10-23 PROCEDURES Procedure Date Ordered Result Body Site X-RAY EXAM OF FINGER(S) October 23, 2017 INSTRUCTIONS MEDICATIONS ADMINISTERED No Known Medications MEDICAL (GENERAL) HISTORY Type Description Date Medical History Arthritis Surgical History cholecystectomy Surgical History wisdom teeth extraction Surgical History Partial hysterectomy 2018 Hospitalization History child Hospitalization History colitis
--- OUTSIDE RECORDS SUMMARY | 2018-02-24 22:48 | XMS REPORT ---
Author Author MERLY SHEABERLYN [facility] Address [address] [place] [address] Care Team Providers Care Oceanographer Physical Name Role Phone SILVANO SHEA Unavailable PROBLEMS Type Condition ICD9-CM Code AGO42-YC Code Onset Dates Condition Status SNOMED Code Problem Menstrual migraine without status migrainosus, not intractable G43.829 Active 42201193 Problem Vaginal bleeding N93.9 Active 396271183 Problem Other chronic pain G89.29 Active 17191734 Problem Insomnia, unspecified type G47.00 Active 518770942 Problem History of anxiety Z86.59 Active 341601107 Problem Difficulty of mother performing R63.3 Active 818880430 Problem Rheumatoid arthritis with positive rheumatoid factor, involving unspecified site M05.9 Active [id number] ALLERGIES No Information ENCOUNTERS Encounter Location Date Diagnosis [facility] [id number] [place] [address] 33107- 3041 Jan, [facility] [id number] [place] [address] 37443- 9601 Jan, [facility] [id number] [place] [address] 34757- 6608 Jan, [facility] [address] 11914- 2635 Jan, [facility] [id number] [place] [address] 45241- 6348 Dec, Pelvic pain R10.2 and Vaginal bleeding N93.9 [facility] [address] 6[address]64- 9825 Dec, [facility] [address] 01445- 4289 Dec, [place] [id number], [place] [address] Dec, Screening, deficiency anemia, iron Z13.0 [address] [id number] [place] [address] 42760- 8373 Oct, Rheumatoid arthritis with positive rheumatoid factor, involving unspecified site M05.9 [place] [id number] [place] [address] 70227- 9398 Oct, Rheumatoid arthritis with positive rheumatoid factor, involving unspecified site M05.9 [address] [id number] [place] [address] 37446- 5040 Oct, Closed nondisplaced fracture of third metatarsal bone of right foot with routine healing, subsequent encounter S92.334D ; Closed nondisplaced fracture of second metatarsal bone of right foot with routine healing, subsequent encounter S92.324D ; Closed nondisplaced fracture of phalanx of left great toe with routine healing, unspecified phalanx, subsequent encounter S92.405D and Other chronic pain G89.29 [place] [id number] [place] [address] 89802- 4122 Oct, Closed nondisplaced fracture of third metatarsal [...] positive rheumatoid factor, involving unspecified site M05.9 [place] [address] [place] [address] 73222- 6165 Oct, [place] [id number] [place] [address] 12452- 7961 Oct, Injury of finger of right hand, initial encounter S69.91XA and Closed displaced fracture of distal phalanx of right middle finger, initial encounter S62.632A [place] [address], [place] [address] 2744 Sep, Mastitis N61.0 and MRSA (methicillin resistant staph aureus ) culture positive Z22.322 [place] [address], [place] [address] 5812 Sep, [facility] [id number] [place] [address] 92142- 1612 Sep, Difficulty of mother performing R63.3 [place] [id number] [place] [address] 15066- 0484 Sep, Acute mastitis of left breast N61.0 [facility] [id number] [place] [address] 66332 -6473 Sep, Abscess L02.91 [address] [id number] [place] [address] 15998- 2969 Sep, [place] [id number] [place] [address] 27319- 6849 Jun, [place] [id number] [place] [address] 06865- 9289 Jun, care, subsequent in second trimester Z34.82 ; Placenta previa in second trimester O44.02 ; Abnormal quad screen O28.0 ; History of delivery, currently O09.219 and 24 weeks gestation of Z3A.24 [place] [id number] [place] [address] 45569- 3186 16 May, 2017 Dental examination Z01.20 [place] [id number], [place] [address] 2630 08 May, 2017 History of delivery, currently O09.219 [place] [id number] [place] [address] 47950- 1258 07 May, 2017 [place] [id number], [place] [address]- 6147 May, 20 weeks gestation of Z3A.20 ; care, subsequent in second trimester Z34.82 ; History of delivery, currently O09.219 and Abnormal quad screen O28.0 [place] [id number] [place] [address] 73151- 1532 Apr, Elevated blood sugar level R73.9 and Glucosuria R81 [place] [address] 07801- 8442 Apr, Elevated blood sugar level R73.9 and Glucosuria R81 [place] [address] 18016- 4214 Apr, Elevated blood sugar level R73.9 [place] [id number] [place] [address] 49433- 6056 Apr, [place] [address] 41220- 2822 Apr, 16 weeks gestation of Z3A.16 ; care, subsequent in second trimester Z34.82 ; Encounter for immunization Z23 and Glucosuria R81 [place] [id number] [place] [address] 35962- 7826 Mar, 12 weeks gestation of Z3A.12 [place] [id number] [place] [address] 83463- 9312 Feb, [place] [id number] [place] [address] 46340- 2538 Feb, care, subsequent in first trimester Z34.81 and 8 weeks gestation of Z3A.08 [place] [id number] [place] [address] 76664- 1248 Jan, [place] [address] 04721- 1187 Jul, Encounter for test, result unknown Z32.00 [place] [address] 05278- 7780 Jun, control counseling Z30.9 and Insomnia, unspecified type G47.00 [facility] [id number] [place] [address] 18180- 5164 Sep, Encounter for test Z32.00 [facility] [id number] [place] [address] 08043- 3143 Jul, [facility] [address] 61910- 4991 Jul, Well woman exam Z01.419 ; Encounter for screening for malignant neoplasm of cervix Z12.4 ; Vaginal discharge N89.8 ; Routine screening for STI (sexually transmitted infection) Z11.3 ; Encounter for prescription for transdermal contraceptive Z30.49 ; Nausea with vomiting, unspecified R11.2 ; Menstrual migraine without status migrainosus, not intractable G43.829 and History of anxiety Z86.59 [place] [address] 69999- 6303 Jun, Encounter for surveillance of transdermal contraceptive Z30.49 and Sauceda F48.9 [facility] [id number] [place] [address] 31067- 3671 Oct, [facility] [id number] [place] [address] 90914- 4194 Oct, [facility] [address] [place] [address] 14546- 1553 Jul, [facility] [id number] [place] [address] 50571- 7276 Jul, [facility] [id number] [place] [address] 78710- 7981 Jul, [facility] [id number] [place] [address] 97679- 3773 Jul, [facility] [id number] [place] [address] 99731- 5968 Jul, [facility] [id number] [place] [address] 12136- 1292 Jul, [facility] [place] [facility] [address] [id number] [place] [address]- 9770 Jun, [facility] [place] [facility] [address] [id number] [place] 0957 Jun, [facility] [place] [facility] [address] [facility] [id number] [place] [address]- 1403 May, [facility] [place] [facility] [address] [id number] [place] [address]- 0671 May, [facility] [place] [facility] [address] [id number] [place] [address]- 6027 May, [facility] [place] [facility] [address] [id number] [place] [address]- 0551 May, [facility] [place] [facility] [address] [facility] [id number] [place] [address]- 6294 Feb, [facility] [place] [facility] [address] [id number] [place] [address]- 1436 Feb, [facility] [place] [facility] [address] [id number] [place] [address]- 7253 Feb, [facility] [place] [facility] [address] [facility] [id number] [place] [address]- 7815 Feb, [facility] [place] [facility] [address] [id number] [place] [address]- 9924 Oct, [facility] [place] [facility] [address] [id number], [place] [address]- 6237 Oct, [facility] [place] [facility] [address] [id number] [place] [address]- 6281 Sep, [facility] [place] [facility] [address] [id number] [place] [address]- 4843 Sep, [facility] [place] [facility] [address] [facility] [id number] [place] [address]- 6275 Sep, [facility] [place] [facility] [address] [id number] [place] [address]- 3851 Sep, [facility] [place] [facility] [address] [id number] [place] [address]- 7377 Aug, [facility] [place] [facility] [address] [id number] [place] [address]- 6256 Aug, [facility] [place] [facility] [address] [id number] [place] [address]- 3923 Jul, [facility] [place] [facility] [address] [id number] [place] [address]- 5159 Jul, [facility] [place] [facility] [address] [id number] [place] [address]- 9796 Jun, [facility] [place] [facility] [address] [id number] [place] [address]- 4874 Jun, [facility] [place] [facility] [address] [id number] [place] [address]- 2461 Jun, [facility] [place] [facility] [address] [id number] [place] [address]- 8637 Jun, [facility] [place] [facility] [address] [id number] [place] [address]- 8557 Jun, [facility] [place] [facility] [address] [id number] [place] [address]- 9521 May, [facility] [place] [facility] [address] [id number] [place] [address]- 6521 May, [facility] [place] [facility] [address] [id number] [place] [address]- 0338 May, [facility] [place] [facility] [address] [id number] [place] [address]- 1938 May, [facility] [place] [facility] [address] [id number] [place] [address]- 0433 Apr, [facility] [place] [facility] [address] [id number] [place] [address]- 7200 Apr, [facility] [address] [id number] [place] [address]- 6894 Apr, [facility] [address] [id number] [place] [address]- 6966 Feb, [facility] [address] [facility] [id number] [place] [address]- 4105 Jan, [facility] [address] [id number] [place] [address]- 4831 Aug, [facility] [address] [id number] [place] [address]- 6964 Aug, [facility] [address] [id number] [place] [address]- 4465 Aug, [facility] [address] [facility] [id number] [place] [address]- 4051 Aug, [facility] [address] [id number] [place] [address]- 4273 Aug, [facility] [address] [id number] [place] [address]- 0619 Aug, [facility] [address] [id number] [place] [address]- 4308 Jul, [facility] [address] [id number] [place] [address]- 4145 Jul, [facility] [place] [facility] [address] [id number] [place] [address]- 6870 Jul, [facility] [place] [facility] [address] [id number] [place] [address]- 6526 Jul, [facility] [place] [facility] [address] [id number] [place] [address]- 3352 16 Jul, 2012 [facility] [place] [facility] [address] [facility] [id number] [place] [address]- 7867 Jul, [facility] [place] [facility] [address] [id number] [place] [address]- 0206 08 Jul, 2012 [facility] [place] [facility] [address] [id number] [place] [address]- 4369 Jun, [facility] [place] [facility] [address] [id number] [place] [address]- 4056 Jun, [facility] [place] [facility] [address] [id number] [place] [address]- 3654 Jun, [facility] [place] [facility] [address] [id number] [place] [address]- 0837 Jun, [facility] [place] [facility] [address] [id number] [place] [address]- 1032 Jun, [facility] [place] [facility] [address] [id number] [place] [address]- 9719 Jun, [facility] [place] [facility] [address] [id number] [place] [address]- 7617 Jun, [facility] [place] [facility] [address] [id number] [place] [address]- 4625 Jun, [facility] [place] [facility] [address] [id number] [place] [address]- 0261 Jun, [facility] [place] [facility] [address] [id number] [place] [address]- 4469 Jun, [facility] [place] [facility] [address] [id number] [place] [address]- 4840 May, [facility] [place] [facility] [address] [id number] [place] [address]- 8672 May, [facility] [place] [facility] [address] [id number] [place] [address]- 7554 May, [facility] [place] [facility] [address] [id number] [place] [address]- 0956 May, [facility] [place] [facility] [address] [id number] [place] [address]- 9651 May, [facility] [place] [facility] [address] [id number] [place] [address]- 5192 Apr, [facility] [place] [facility] [address] [id number] [place] [address]- 1049 Apr, [facility] [place] [facility] [address] [id number] [place] [address]- 2916 Apr, [facility] [place] [facility] [address] [id number] [place] [address]- 6310 15 Apr, 2012 [facility] [place] [facility] [address] [id number] [place] [address]- 1182 Apr, [facility] [place] [facility] [address] [id number] [place] [address]- 4567 25 Mar, 2012 [facility] [place] [facility] [address] [id number] [place] [address]- 1509 20 Mar, 2012 [facility] [place] [facility] [address] [id number] [place] [address]- 7110 12 Mar, 2012 [facility] [place] [facility] [address] [id number] [place] [address]- 5948 07 Mar, 2012 [facility] [place] [facility] [address] [id number] [place] [address]- 2418 06 Mar, 2012 [facility] [place] [facility] [address] [id number], [place] [address]- 8935 05 Mar, 2012 [facility] [place] [facility] [address] [id number], [place] [address]- 8031 Feb, [facility] [place] [facility] [address] [id number] [place] [address]- 0227 Feb, [facility] [place] [facility] [address] [id number], [place] [address]- 8538 Feb, [facility] [place] [facility] [address] [id number] [place] [address]- 5467 Feb, [facility] [place] [facility] [address] [id number] [place] [address]- 8419 Feb, [facility] [place] [facility] [address] [id number] [place] [address]- 5467 Jan, [facility] [place] [facility] [address] [id number] [place] [address]- 7963 Jan, [facility] [place] [facility] [address] [id number] [place] [address]- 0340 Jan, [facility] [place] [facility] [address] [id number] [place] [address]- 3125 Jan, [facility] [place] [facility] [address] [id number] [place] [address]- 5545 Jan, [facility] [place] [facility] [address] [id number] [place] [address]- 3042 Jan, [facility] [place] [facility] [address] [id number] [place] [address]- 9632 Dec, [facility] [place] [facility] [address] [id number] [place] [address]- 2176 Dec, [facility] [place] [facility] [address] [id number] [place] [address]- 8390 Dec, [facility] [place] [facility] [address] [id number] [place] [address]- 4508 Dec, [facility] [place] [facility] [address] [id number] [place] [address]- 2294 Dec, [facility] [place] [facility] [address] [id number] [place] [address]- 7671 Dec, [facility] [place] [facility] [address] [id number] [place] [address]- 8711 Dec, [facility] [place] [facility] [address] [id number] [place] [address]- 1299 November, [facility] [place] [facility] [address] [id number] [place] [address]- 8935 November, [facility] [place] [facility] [address] [id number] [place] [address]- 6279 November, [facility] [place] [facility] [address] [id number] [place] [address]- 7819 Oct, [facility] [place] [facility] [address] [id number] [place] [address]- 4263 Oct, [facility] [place] [facility] [address] [id number] [place] [address]- 1355 Oct, [facility] [place] [facility] [address] [id number] [place] [address]- 4716 Sep, [facility] [place] [facility] [address] [id number] [place] [address]- 3549 Sep, [facility] [address] [id number] [place] [address]- 0671 Sep, [facility] [place] [facility] [address] [id number] [place] [address]- 8179 Sep, [facility] [place] [facility] [address] [id number] [place] [address]- 8799 Sep, [facility] [place] [facility] [address] [id number] [place] [address]- 0320 Aug, [facility] [place] [facility] [address] [id number] [place] [address]- 0746 Aug, [facility] [place] [facility] [address] [id number] [place] [address]- 0255 Aug, [facility] [place] [facility] [address] [id number] [place] [address]- 4692 Aug, [facility] [place] [facility] [address] [id number] [place] [address]- 4746 Jul, [facility] [place] [facility] [address] [id number] [place] [address]- 5054 Jul, [facility] [place] [facility] [address] [id number], [place] [address]- 1922 28 Jul, 2011 [facility] [address] [id number] [place] [address]- 0821 27 Jul, 2011 [facility] [place] [facility] [address] [id number] [place] [address]- 3287 18 Jul, 2011 [facility] [address] [facility] [id number] [place] [address]- 2008 12 Jul, 2011 [facility] [address] [id number] [place] [address]- 1201 11 Jul, 2011 [facility] [address] [facility] [id number] [place] [address]- 0037 10 Jul, 2011 [facility] [address] [facility] [id number] [place] [address]- 2026 16 Jun, 2011 [facility] [address] [address]- 8038 Jun, [facility] [place] [facility] [address] [id number] [place] [address]- 9232 Jun, [facility] [address] [id number] [place] [address] 06 Jun, 2011 [facility] [address] [id number] [place] [address] 14 May, 2011 [facility] [address] [id number], [place] [address] 31 Apr, 2011 [facility] [place] [facility] [address] [id number], [place] [address] 13 Mar, 2011 [facility] [place] [facility] [address] [id number], [place] [address] 16 Dec, 2010 [facility] [place] [facility] [address] [facility] [id number], [place] [address] 10 Aug, 2010 [facility] [place] [facility] [address] [facility] [id number], [place] [address] 11 Jul, 2010 [facility] [place] [facility] [id number], [place] [address] Sep, [facility] [id number], [place] [address] Jul, [facility] [id number], [place] [address] Jun, [facility] [id number], [place] [address] Jun, [facility] [id number], [place] [address] May, [facility] [id number] [place] [address] Apr, [facility] [id number], [place] [address] Apr, [facility] [id number] [address] Apr, [facility] [id number] [address] Feb, [facility] [id number], [place] [address] Feb, [facility] [id number], [place] [address] Jan, [facility] [id number], [place] [address] November, IMMUNIZATIONS No Known Immunizations SOCIAL HISTORY Never Assessed REASON FOR VISIT ref. fam. prac. PLAN OF CARE VITAL SIGNS MEDICATIONS Unknown Medications RESULTS No Results PROCEDURES Procedure Date Ordered Result Body Site SCREENING OF A PATIENT October 08, 2017 Billing Notes on claim October 08, 2017 INSTRUCTIONS MEDICATIONS ADMINISTERED No Known Medications MEDICAL (GENERAL) HISTORY Type Description Date Medical History Arthritis Surgical History cholecystectomy Surgical History wisdom teeth extraction Surgical History Partial hysterectomy 2018 Hospitalization History child Hospitalization History colitis
--- OUTSIDE RECORDS SUMMARY | 2018-02-24 22:49 | XMS REPORT ---
Author Author RANDAL HUSSEIN Organization [facility] Address [address] [place] [address] Care Team Providers Care Physical Therapy Aides Teacher Name Role Phone RANDAL HUSSEIN Unavailable PROBLEMS Type Condition ICD9-CM Code VRV58-ZG Code Onset Dates Condition Status SNOMED Code Problem Menstrual migraine without status migrainosus, not intractable G43.829 Active 43903467 Problem Vaginal bleeding N93.9 Active 787305518 Problem Other chronic pain G89.29 Active 86026191 Problem Insomnia, unspecified type G47.00 Active 850074595 Problem History of anxiety Z86.59 Active 344000165 Problem Difficulty of mother performing R63.3 Active 080984109 Problem Rheumatoid arthritis with positive rheumatoid factor, involving unspecified site M05.9 Active 792378855 ALLERGIES Substance Reaction Event Type Date Status Tylenol/Codeine #3 Unknown Drug Allergy Sep, Active Tramadol HCl vomiting Drug Allergy Sep, Active ENCOUNTERS Encounter Location Date Diagnosis [facility] [id number] [place] [address] 32753- 7244 Jan, [facility] [id number] [place] [address] 00847- 0371 Jan, [facility] [id number] [place] [address] 12057- 7561 Jan, [facility] [id number] [place] [address] 07529- 5929 Dec, Pelvic pain R10.2 and Vaginal bleeding N93.9 [facility] [id number] [place] [address] 03206- 9130 Dec, [facility] [id number] [place] [address] 63374- 8545 Dec, [facility] [address] [address] 65[address] Dec, Screening, deficiency anemia, iron Z13.0 [facility] [id number] [place] [address] 01302- 8796 Oct, Rheumatoid arthritis with positive rheumatoid factor, involving unspecified site M05.9 [facility] [address] [place] [address] 91582- 5065 Oct, Rheumatoid arthritis with positive rheumatoid factor, involving unspecified site M05.9 [facility] [address] [place] [address] 60403- 5170 Oct, Closed nondisplaced fracture of third metatarsal bone of right foot with routine healing, subsequent encounter S92.334D ; Closed nondisplaced fracture of second metatarsal bone of right foot with routine healing, subsequent encounter S92.324D ; Closed nondisplaced fracture of phalanx of left great toe with routine healing, unspecified phalanx, subsequent encounter S92.405D and Other chronic pain G89.29 [facility] [address] [place] [address] 40577- 9322 Oct, Closed nondisplaced fracture of third metatarsal [...] positive rheumatoid factor, involving unspecified site M05.9 [facility] [id number] [address]- 0728 Oct, [facility] [address] [place] [address] 59053- 0733 Oct, Injury of finger of right hand, initial encounter S69.91XA and Closed displaced fracture of distal phalanx of right middle finger, initial encounter S62.632A [facility] [address] [address] 1929 Sep, Mastitis N61.0 and MRSA (methicillin resistant staph aureus ) culture positive Z22.322 [facility] [address] [address]- 6990 Sep, [facility] [address] [address]- 1012 Sep, Difficulty of mother performing R63.3 [facility] [address] [address]- 1088 Sep, Acute mastitis of left breast N61.0 [facility] [address] [place] [address] 36728 -9456 Sep, Abscess L02.91 [facility] [address] [address]- 6165 Sep, [facility] [address] [place] [address] 74801- 4236 Jun, [facility] [id number] [address]- 0628 Jun, care, subsequent in second trimester Z34.82 ; Placenta previa in second trimester O44.02 ; Abnormal quad screen O28.0 ; History of delivery, currently O09.219 and 24 weeks gestation of Z3A.24 [facility] [address] [address]- 2028 16 May, 2017 Dental examination Z01.20 [facility] [id number] [address]- 7969 08 May, 2017 History of delivery, currently O09.219 [facility] [address] [place] [address] 75343- 4870 07 May, 2017 [facility] [id number] [address]- 6229 May, 20 weeks gestation of Z3A.20 ; care, subsequent in second trimester Z34.82 ; History of delivery, currently O09.219 and Abnormal quad screen O28.0 [facility] [id number] [place] [address] 91759- 0301 Apr, Elevated blood sugar level R73.9 and Glucosuria R81 [facility] [id number] [place] [address] 35609- 2360 Apr, Elevated blood sugar level R73.9 and Glucosuria R81 [facility] [id number] [place] [address] 88122- 0757 Apr, Elevated blood sugar level R73.9 [facility] [id number] [place] [address] 39437- 0832 Apr, [facility] [id number] [place] [address] 73392- 5554 Apr, 16 weeks gestation of Z3A.16 ; care, subsequent in second trimester Z34.82 ; Encounter for immunization Z23 and Glucosuria R81 [facility] [id number] [place] [address] 83857- 7277 Mar, 12 weeks gestation of Z3A.12 [facility] [id number] [place] [address] 47365- 6255 Feb, [facility] [id number] [place] [address] 51491- 0963 Feb, care, subsequent in first trimester Z34.81 and 8 weeks gestation of Z3A.08 [facility] [id number] [place] [address] 45245- 5773 Jan, [address] [address]683- 6777 Jul, Encounter for test, result unknown Z32.00 [facility] [id number] [place] [address] 05452- 4489 Jun, control counseling Z30.9 and Insomnia, unspecified type G47.00 [facility] [id number] [place] [address] 44101- 8084 Sep, Encounter for test Z32.00 [facility] [id number] [place] [address] 82847- 2527 Jul, [facility] [id number] [place] [address] 53667- 8247 Jul, Well woman exam Z01.419 ; Encounter for screening for malignant neoplasm of cervix Z12.4 ; Vaginal discharge N89.8 ; Routine screening for STI (sexually transmitted infection) Z11.3 ; Encounter for prescription for transdermal contraceptive Z30.49 ; Nausea with vomiting, unspecified R11.2 ; Menstrual migraine without status migrainosus, not intractable G43.829 and History of anxiety Z86.59 [facility] [id number] [place] [address] 34600- 5774 Jun, Encounter for surveillance of transdermal contraceptive Z30.49 and Sauceda F48.9 [facility] [id number] [place] [address] 71596- 0209 Oct, [facility] [id number] [place] [address] 41909- 4121 Oct, [facility] [id number] [place] [address] 60759- 3186 Jul, [facility] [id number] [place] [address] 45712- 7227 Jul, [facility] [id number] [place] [address] 92869- 6463 Jul, [facility] [id number] [place] [address] 88551- 9060 Jul, [facility] [id number] [place] [address] 52463- 0332 Jul, [facility] [id number] [place] [address] 34914- 3729 Jul, [facility] [place] [facility] [address] [id number] [place] 3015 Jun, [facility] [place] [facility] [address] [id number] [place] [address]- 5446 Jun, [facility] [place] [facility] [address] [id number] [place] 9137 May, [facility] [place] [facility] [address] [id number] [place] [address]- 3801 May, [facility] [place] [facility] [address] [id number] [place] [address]- 7504 May, [facility] [place] [facility] [address] [id number] [place] [address]- 1673 May, [facility] [place] [facility] [address] [id number] [place] [address]- 1388 Feb, [facility] [place] [facility] [address] [id number] [place] [address]- 0070 Feb, [facility] [place] [facility] [address] [id number] [place] [address]- 5818 Feb, [facility] [place] [facility] [address] [id number] [place] [address]- 0169 Feb, [facility] [place] [facility] [address] [id number] [place] [address]- 4421 Oct, [facility] [place] [facility] [address] [id number] [place] [address]- 2686 Oct, [facility] [place] [facility] [address] [id number] [place] [address]- 3006 Sep, [facility] [place] [facility] [address] [id number] [place] 8163 Sep, [facility] [place] [facility] [address] [id number] [place] 1632 Sep, [facility] [place] [facility] [address] [id number] [place] [address]- 1624 Sep, [facility] [address] [id number] [place] [address]- 2126 Aug, [facility] [address] [id number] [place] 0946 Aug, [facility] [address] [id number] [place] [address]- 2352 Jul, [facility] [address] [id number] [place] [address]- 2913 Jul, [facility] [address] [id number] [place] 7447 Jun, [facility] [address] [id number] [place] [address]- 7643 Jun, [facility] [address] [facility] [place] [id number] [place] [address]- 3530 Jun, [facility] [address] [facility] [place] [id number] [place] [address]- 0816 Jun, [facility] [address] [facility] [place] [id number] [place] [address]- 7761 Jun, [facility] [address] [facility] [place] [id number] [place] [address]- 3237 May, [facility] [address] [id number] [place] [address]- 2169 May, [facility] [place] [facility] [address] [facility] [place] [id number] [place] [address]- 0901 May, [facility] [place] [facility] [address] [id number] [place] [address]- 9779 May, [facility] [place] [facility] [address] [facility] [place] [id number] [place] 5420 Apr, [facility] [place] [facility] [address] [id number] [place] [address]- 0560 Apr, [facility] [place] [facility] [address] [id number] [place] [address]- 8953 Apr, [facility] [place] [facility] [address] [id number] [place] [address]- 2210 Feb, [facility] [address] [id number] [place] [address]- 7192 Jan, [facility] [place] [facility] [address] [id number] [place] [address]- 5570 Aug, [facility] [address] [id number] [place] [address]- 9195 Aug, [facility] [place] [facility] [address] [id number] [place] [address]- 5149 Aug, [facility] [address] [id number] [place] [address]- 5942 Aug, [facility] [place] [facility] [address] [id number] [place] [address]- 7392 Aug, [facility] [place] [facility] [address] [id number] [place] [address]- 3358 Aug, [facility] [place] [facility] [address] [id number] [place] [address]- 2851 Jul, [facility] [place] [facility] [address] [id number] [place] [address]- 4989 Jul, [facility] [place] [facility] [address] [id number] [address]- 2195 Jul, [facility] [place] [facility] [address] [id number] [place] [address]- 3263 Jul, [facility] [place] [facility] [address] [id number] [place] [address]- 5476 16 Jul, 2012 [facility] [place] [facility] [address] [id number] [place] [address]- 1518 Jul, [facility] [place] [facility] [address] [id number] [place] [address]- 5693 08 Jul, 2012 [facility] [place] [facility] [address] [id number] [place] 6833 Jun, [facility] [place] [facility] [address] [id number] [place] 3186 Jun, [facility] [place] [facility] [address] [id number] [place] [address]- 8267 Jun, [facility] [place] [facility] [address] [id number] [place] [address]- 7114 Jun, [facility] [place] [facility] [address] [id number] [place] [address]- 8073 Jun, [facility] [place] [facility] [address] [id number] [place] [address]- 5028 Jun, [facility] [place] [facility] [address] [id number] [place] [address]- 3515 Jun, [facility] [place] [facility] [address] [id number] [place] [address]- 5027 Jun, [facility] [place] [facility] [address] [id number] [place] [address]- 6864 Jun, [facility] [place] [facility] [address] [facility] [place] [id number] [place] [address]- 5530 Jun, [facility] [place] [facility] [address] [id number] [place] [address]- 6443 May, [facility] [place] [facility] [address] [id number] [place] [address]- 5768 May, [facility] [place] [facility] [address] [id number] [place] [address]- 6930 May, [facility] [place] [facility] [address] [facility] [place] [id number] [place] [address]- 1427 May, [facility] [place] [facility] [address] [id number] [place] [address]- 1458 May, [facility] [place] [facility] [address] [id number] [place] [address]- 4904 Apr, [facility] [place] [facility] [address] [id number] [place] [address]- 6603 Apr, [facility] [place] [facility] [address] [id number] [place] [address]- 5486 Apr, [facility] [place] [facility] [address] [id number] [place] [address]- 3884 15 Apr, 2012 [facility] [place] [facility] [address] [id number] [place] [address]- 5647 Apr, [facility] [place] [facility] [address] [id number] [place] [address]- 0583 25 Mar, 2012 [facility] [place] [facility] [address] [id number] [place] [address]- 7875 20 Mar, 2012 [facility] [place] [facility] [address] [id number] [place] [address]- 9455 12 Mar, 2012 [facility] [place] [facility] [address] [id number] [place] [address]- 7662 07 Mar, 2012 [facility] [place] [facility] [address] [id number] [place] [address]- 4327 06 Mar, 2012 [facility] [place] [facility] [address] [id number] [place] [address]- 0336 05 Mar, 2012 [facility] [place] [facility] [address] [id number] [place] [address]- 4508 Feb, [facility] [place] [facility] [address] [id number] [place] [address]- 8394 Feb, [facility] [place] [facility] [address] [id number] [place] [address]- 1605 Feb, [facility] [place] [facility] [address] [id number] [place] [address]- 1095 Feb, [facility] [place] [facility] [address] [id number] [place] [address]- 6741 Feb, [facility] [place] [facility] [address] [id number] [place] [address]- 2377 Jan, [facility] [place] [facility] [address] [id number] [place] [address]- 0060 Jan, [facility] [place] [facility] [address] [id number] [place] [address]- 2379 Jan, [facility] [place] [facility] [address] [id number] [place] [address]- 2757 Jan, [facility] [place] [facility] [address] [id number] [place] [address]- 4326 Jan, [facility] [place] [facility] [address] [id number] [place] [address]- 7466 Jan, [facility] [place] [facility] [address] [id number] [place] [address]- 0495 Dec, [facility] [place] [facility] [address] [id number] [place] [address]- 8327 Dec, [facility] [place] [facility] [address] [id number] [place] [address]- 8221 Dec, [facility] [place] [facility] [address] [id number] [place] [address]- 9069 Dec, [facility] [place] [facility] [address] [id number] [place] [address]- 2565 Dec, [facility] [place] [facility] [address] [id number] [place] [address]- 3498 Dec, [facility] [place] [facility] [address] [id number] [place] [address]- 3039 Dec, [facility] [place] [facility] [address] [id number] [place] [address]- 0450 November, [facility] [place] [facility] [address] [id number] [place] [address]- 2803 November, [facility] [place] [facility] [address] [id number] [place] [address] 2546 November, [facility] [address] [id number] [place] [address]- 8881 Oct, [facility] [place] [facility] [address] [id number] [place] [address]- 3436 Oct, [facility] [address] [id number] [place] [address]- 9634 Oct, [facility] [place] [facility] [address] [id number] [place] [address]- 1544 Sep, [facility] [address] [id number] [place] [address]- 4034 Sep, [facility] [address] [id number] [place] [address]- 1586 Sep, [facility] [address] [id number] [place] [address]- 5348 Sep, [facility] [address] [id number] [place] [address]- 3093 Sep, [facility] [address] [id number] [place] [address]- 3014 Aug, [facility] [address] [id number] [place] [address]- 0058 Aug, [facility] [place] [facility] [address] [id number] [place] [address]- 4046 Aug, [facility] [address] [id number] [place] [address]- 4716 Aug, [facility] [place] [facility] [address] [id number] [place] [address]- 7076 Jul, [facility] [place] [facility] [address] [id number] [place] [address]- 1796 Jul, [facility] [place] [facility] [address] [id number] [place] [address]- 8053 28 Jul, 2011 [facility] [address] [id number] [place] [address]- 3803 27 Jul, 2011 [facility] [place] [facility] [address] [id number] [place] [address]- 3863 18 Jul, 2011 [facility] [place] [facility] [address] [id number] [place] [address]- 3716 12 Jul, 2011 [facility] [place] [facility] [address] [id number] [place] [address]- 0811 11 Jul, 2011 [facility] [address] [id number] [place] [address]- 8444 10 Jul, 2011 [facility] [address] [id number] [place] [address]- 2023 16 Jun, 2011 [facility] [place] [facility] [address] [id number] [place] [address]- 0275 Jun, [facility] [place] [facility] [address] [id number] [place] [address]- 4628 12 Jun, 2011 [facility] [place] [facility] [address] [id number] [place] [address]- 7832 06 Jun, 2011 [facility] [place] [facility] [address] [facility] [place] [place] [id number] [address]- 7511 14 May, 2011 [facility] [place] [facility] [address] [id number] [address]- 1940 31 Apr, 2011 [facility] [place] [facility] [address] [id number] [address]- 9483 13 Mar, 2011 [facility] [place] [facility] [address] [id number] [place] [address]- 4826 16 Dec, 2010 [facility] [place] [facility] [address] [id number] [place] [address] 10 Aug, 2010 [facility] [place] [facility] [address] [id number] [address] 11 Jul, 2010 [facility] [place] [facility] [id number] [address] Sep, [facility] [id number] [address] Jul, [facility] [id number] [address] Jun, [facility] [id number] [address] Jun, [facility] [id number] [address] May, [facility] [id number] [place] [address] Apr, [facility] [id number] [address] Apr, [facility] [id number] [address] Apr, [facility] [id number] [address] Feb, [facility] [id number] [address] Feb, [facility] [id number] [address] Jan, [facility] [id number] [address] November, IMMUNIZATIONS No Known Immunizations SOCIAL HISTORY Never Assessed REASON FOR VISIT Abscess pain, Mastitis to left breast. Has not breast fed in several days. Has been trying to pump but it is too painful. Low grade fevers and chills at home. , Has been seen in walk in care as well as the ER for this. Currently on hydrocodone and doxycycline -SUJATA Viramontes PLAN OF CARE Activity Details Follow Up 2 - 3 Days with Anant Reason: VITAL SIGNS Height 64 in 2017-10-08 Weight 108 lbs 2017-10-08 Temperature 98.3 degrees Fahrenheit 2017-10-08 Heart Rate 96 bpm 2017-10-08 Respiratory Rate 20 2017-10-08 BMI 18.54 kg/m2 2017-10-08 Blood pressure systolic 108 mmHg 2017-10-08 Blood pressure diastolic 70 mmHg 2017-10-08 MEDICATIONS Medication Instructions Dosage Frequency Start Date End Date Duration Status Neurontin 300 MG Orally 2 times a day 1 capsule 12h 18 Feb, 2014 Not -Taking Concord 250 MG/ML Intramuscular once weekly 1 ml May, Not- Taking One Daily Not-Taking Clindamycin HCl - Orally BID x10 days 1 capsule Not-Taking Hydrocodone-Acetaminophen 5-325 mg take 1 tablet by oral route every 4 hours as needed for pain May, Active Flexeril Not-Taking Naproxen 250 MG Orally Twice a day 1 tablet 12h Not-Taking Amitriptyline HCl 25 MG Orally Once a day 1 tablet 24h Sep, 30 day(s) Active RESULTS No Results PROCEDURES No Known procedures INSTRUCTIONS MEDICATIONS ADMINISTERED No Known Medications MEDICAL (GENERAL) HISTORY Type Description Date Medical History Arthritis Surgical History cholecystectomy Surgical History wisdom teeth extraction Surgical History Partial hysterectomy 2017 Hospitalization History child Hospitalization History colitis
--- OUTSIDE RECORDS SUMMARY | 2018-02-24 22:49 | XMS REPORT ---
Author Author LESLIE CELE [facility] Address [address] [place] [address] Care Team Providers Care Public Speaking Instructor Name Role Phone LESILEALBERTOCELE Unavailable PROBLEMS Type Condition ICD9-CM Code KGA19-BL Code Onset Dates Condition Status SNOMED Code Problem Menstrual migraine without status migrainosus, not intractable G43.829 Active 08766952 Problem Vaginal bleeding N93.9 Active 946806003 Problem Other chronic pain G89.29 Active 76049869 Problem Insomnia, unspecified type G47.00 Active 605599424 Problem History of anxiety Z86.59 Active 703271170 Problem Difficulty of mother performing R63.3 Active 767628729 Problem Rheumatoid arthritis with positive rheumatoid factor, involving unspecified site M05.9 Active 883489481 ALLERGIES Substance Reaction Event Type Date Status Tylenol/Codeine #3 Unknown Drug Allergy Sep, Active Tramadol HCl vomiting Drug Allergy Sep, Active ENCOUNTERS Encounter Location Date Diagnosis [place] [id number] [place] [address] 94839- 1223 Jan, [place] [address] [place] [id number] [place] [address] 44760- 4820 Jan, [facility] [place] [address] [id number] [place] [address] 85936- 8484 Jan, [facility] [place] [id number] [place] [address] 59308- 9294 Jan, [facility] [place] [id number] [place] [address] 28731- 9262 Dec, Pelvic pain R10.2 and Vaginal bleeding N93.9 [facility] [place] [id number] [place] [address] 96197- 4315 Dec, [place] [id number] [address] 7720 Dec, [place] [id number] [place] [address] 36915- 1443 Dec, Screening, deficiency anemia, iron Z13.0 [place] [id number] [place] [address] 32280- 2052 Oct, Rheumatoid arthritis with positive rheumatoid factor, involving unspecified site M05.9 [place] [id number] [place] [address] 08293- 1537 Oct, Rheumatoid arthritis with positive rheumatoid factor, involving unspecified site M05.9 [place] [id number] [place] [address] 91317- 6728 Oct, Closed nondisplaced fracture of third metatarsal bone of right foot with routine healing, subsequent encounter S92.334D ; Closed nondisplaced fracture of second metatarsal bone of right foot with routine healing, subsequent encounter S92.324D ; Closed nondisplaced fracture of phalanx of left great toe with routine healing, unspecified phalanx, subsequent encounter S92.405D and Other chronic pain G89.29 [place] [id number] [place] [address] 65318- 1562 17 Oct, 2017 Closed nondisplaced fracture of [...] positive rheumatoid factor, involving unspecified site M05.9 [place] [id number] [place] [address] 08421- 3173 Oct, [place] [address] [place] [id number] [address] 8310 Oct, Injury of finger of right hand, initial encounter S69.91XA and Closed displaced fracture of distal phalanx of right middle finger, initial encounter S62.632A [facility] [place] [id number] [place] [address] 93587- 4870 Sep, Mastitis N61.0 and MRSA (methicillin resistant staph aureus ) culture positive Z22.322 [place] [address] [place] [address] 93852- 5579 Sep, [facility] [place] [address] [place] [id number] [place] [address] 27859- 9831 Sep, Difficulty of mother performing R63.3 [place] [address] [place] [id number] [place] [address] 20531- 1084 Sep, Acute mastitis of left breast N61.0 [facility] [id number] [place] [address] 70667 -1881 Sep, Abscess L02.91 [place] [address] [place] [id number] [place] [address] 19101- 8212 Sep, [facility] [place] [id number] [place] [address] 20210- 0039 Jun, [place] [id number] [place] [address] 41048- 1961 05 Jun, 2017 care, subsequent in second trimester Z34.82 ; Placenta previa in second trimester O44.02 ; Abnormal quad screen O28.0 ; History of delivery, currently O09.219 and 24 weeks gestation of Z3A.24 [place] [address] [address]- 8956 16 May, 2017 Dental examination Z01.20 [place] [id number] [place] [address] 33070- 0359 08 May, 2017 History of delivery, currently O09.219 [place] [address] [place] [address] 61097- 5346 07 May, 2017 [place] [address] [place] [id number] [place] [address] 35573- 9339 May, 20 weeks gestation of Z3A.20 ; care, subsequent in second trimester Z34.82 ; History of delivery, currently O09.219 and Abnormal quad screen O28.0 [place] [id number] [place] [address] 27376- 9348 Apr, Elevated blood sugar level R73.9 and Glucosuria R81 [address] 06731- 9014 Apr, Elevated blood sugar level R73.9 and Glucosuria R[address] 82576- 7500 Apr, Elevated blood sugar level R73.9 [place] [id number] [place] [address] 38571- 6045 Apr, [address] 38611- 4523 Apr, 16 weeks gestation of Z3A.16 ; care, subsequent in second trimester Z34.82 ; Encounter for immunization Z23 and Glucosuria R81 [place] [id number] [place] [address] 06456- 7676 Mar, 12 weeks gestation of Z3A.12 [place] [id number] [place] [address] 93294- 3234 Feb, [address] 05784- 7843 Feb, care, subsequent in first trimester Z34.81 and 8 weeks gestation of Z3A.[address] 99988- 9192 Jan, [place] [id number] [place] [address] 33726- 6498 Jul, Encounter for test, result unknown Z32.00 [place] [address] [place] [id number] [place] [address] 39490- 7082 Jun, control counseling Z30.9 and Insomnia, unspecified type G47.00 [facility] [place] [address] [place] [id number] [place] [address] 99638- 8303 Sep, Encounter for test Z32.00 [place] [address] 27862- 1790 Jul, [place] [address] 60285- 6871 Jul, Well woman exam Z01.419 ; Encounter for screening for malignant neoplasm of cervix Z12.4 ; Vaginal discharge N89.8 ; Routine screening for STI (sexually transmitted infection) Z11.3 ; Encounter for prescription for transdermal contraceptive Z30.49 ; Nausea with vomiting, unspecified R11.2 ; Menstrual migraine without status migrainosus, not intractable G43.829 and History of anxiety Z86.59 [place] [address] 93494- 4707 Jun, Encounter for surveillance of transdermal contraceptive Z30.49 and Sauceda F48.9 [place] [address] [place] [id number] [place] [address] 82696- 1733 Oct, [place] [address] [place] [id number] [place] [address] 20197- 0093 Oct, [place] [address] [place] [id number] [place] [address] 92169- 4919 Jul, [place] [address] [place] [id number] [place] [address] 46993- 8123 Jul, [place] [address] 54167- 1239 Jul, [place] [address] [place] [id number] [place] [address] 53905- 2340 Jul, [place] [address] 42219- 0788 Jul, [facility] [place] [facility] [address] [id number] [place] [address]- 0867 Jul, [facility] [place] [facility] [address] [id number] [place] [address]- 1238 Jun, [facility] [place] [facility] [address] [id number] [place] [address]- 5342 Jun, [facility] [place] [facility] [address] [id number] [place] 7453 May, [facility] [place] [facility] [address] [id number] [place] [address]- 4576 May, [facility] [place] [facility] [address] [id number] [place] [address]- 2739 May, [facility] [place] [facility] [address] [id number] [place] [address]- 9652 May, [facility] [place] [facility] [address] [id number] [place] [address]- 4617 Feb, [facility] [place] [facility] [address] [id number] [place] [address]- 9844 Feb, [facility] [place] [facility] [address] [id number] [place] [address]- 0718 Feb, [facility] [place] [facility] [address] [id number] [place] [address]- 6664 Feb, [facility] [place] [facility] [address] [id number] [place] [address]- 0417 Oct, [facility] [place] [facility] [address] [id number] [place] [address]- 5000 Oct, [facility] [place] [facility] [address] [id number] [place] [address]- 9531 Sep, [facility] [place] [facility] [address] [id number] [place] [address]- 5724 Sep, [facility] [place] [facility] [address] [id number] [place] [address]- 7669 Sep, [facility] [address] [id number] [place] [address]- 7127 Sep, [facility] [place] [facility] [address] [id number] [place] [address]- 9146 Aug, [facility] [address] [id number] [place] [address]- 3776 Aug, [facility] [place] [facility] [address] [id number] [place] [address]- 6594 Jul, [facility] [address] [id number] [place] [address]- 4902 Jul, [facility] [address] [id number] [place] [address]- 5206 Jun, [facility] [place] [facility] [address] [id number] [place] [address]- 9754 Jun, [facility] [address] [id number] [place] [address]- 9718 Jun, [facility] [address] [id number] [place] [address]- 5500 Jun, [facility] [address] [facility] [id number] [place] [address]- 7654 Jun, [facility] [place] [facility] [address] [id number] [place] [address]- 1056 30 May, 2013 [facility] [place] [facility] [address] [id number] [place] [address]- 0091 May, [facility] [place] [facility] [address] [id number] [place] [address]- 4165 May, [facility] [place] [facility] [address] [id number] [place] [address]- 8296 May, [facility] [place] [facility] [address] [id number] [place] [address]- 2081 Apr, [facility] [address] [id number] [place] [address]- 8860 Apr, [facility] [place] [facility] [address] [id number] [place] [address]- 8251 Apr, [facility] [address] [id number] [place] [address]- 4316 Feb, [facility] [place] [facility] [address] [id number] [place] [address]- 5665 Jan, [facility] [address] [id number] [place] [address]- 3962 Aug, [facility] [place] [facility] [address] [id number] [place] [address]- 8566 Aug, [facility] [place] [facility] [address] [id number] [place] [address]- 6909 Aug, [facility] [place] [facility] [address] [id number] [place] [address]- 7766 Aug, [facility] [place] [facility] [address] [id number] [place] [address]- 4806 Aug, [facility] [place] [facility] [address] [id number] [place] [address]- 1446 Aug, [facility] [place] [facility] [address] [id number] [place] [address]- 8945 Jul, [facility] [place] [facility] [address] [id number] [place] [address]- 8366 Jul, [facility] [place] [facility] [address] [id number] [place] [address]- 6689 Jul, [facility] [place] [facility] [address] [id number] [place] [address]- 8527 Jul, [facility] [place] [facility] [address] [id number] [place] [address]- 7866 Jul, [facility] [place] [facility] [address] [id number] [place] [address]- 4197 Jul, [facility] [address] [id number] [place] [address]- 6450 Jul, [facility] [address] [id number] [place] 7834 Jun, [facility] [address] [id number] [place] [address]- 9412 Jun, [facility] [address] [id number] [place] [address]- 3078 Jun, [facility] [address] [id number] [place] [address]- 9321 Jun, [facility] [address] [id number] [place] [address]- 9619 Jun, [facility] [address] [id number] [place] [address]- 7778 Jun, [facility] [address] [id number] [place] [address]- 4585 Jun, [facility] [address] [id number] [place] [address]- 1067 Jun, [facility] [address] [id number] [place] [address]- 1220 Jun, [facility] [address] [id number] [place] [address]- 8945 Jun, [facility] [address] [id number] [place] [address]- 7485 May, [facility] [place] [facility] [address] [id number] [place] [address]- 8860 May, [facility] [place] [facility] [address] [id number] [place] [address]- 5742 May, [facility] [address] [id number] [place] [address]- 1749 May, [facility] [place] [facility] [address] [id number] [place] [address]- 9827 May, [facility] [place] [facility] [address] [id number] [place] [address]- 1096 Apr, [facility] [place] [facility] [address] [id number] [place] [address]- 0672 Apr, [facility] [place] [facility] [address] [id number] [place] [address]- 5551 Apr, [facility] [place] [facility] [address] [id number] [place] [address]- 0441 Apr, [facility] [place] [facility] [address] [id number] [place] [address]- 0348 Apr, [facility] [place] [facility] [address] [id number] [place] [address]- 7979 25 Mar, 2012 [facility] [place] [facility] [address] [id number] [place] [address]- 1242 20 Mar, 2012 [facility] [place] [facility] [address] [id number] [place] [address]- 8006 12 Mar, 2012 [facility] [place] [facility] [address] [id number] [place] [address]- 1708 07 Mar, 2012 [facility] [place] [facility] [address] [id number] [place] [address]- 2541 06 Mar, 2012 [facility] [place] [facility] [address] [id number] [address]- 1485 05 Mar, 2012 [facility] [place] [facility] [address] [id number] [place] [address]- 6490 Feb, [facility] [place] [facility] [address] [id number] [place] [address]- 5425 Feb, [facility] [place] [facility] [address] [id number] [place] [address]- 0737 Feb, [facility] [place] [facility] [address] [id number], [place] [address]- 2366 Feb, [facility] [place] [facility] [address] [id number] [place] [address]- 4827 Feb, [facility] [place] [facility] [address] [id number] [place] [address]- 5492 Jan, [facility] [place] [facility] [address] [id number] [place] [address]- 6707 Jan, [facility] [place] [facility] [address] [id number] [place] [address]- 7557 Jan, [facility] [place] [facility] [address] [id number] [place] [address]- 4031 Jan, [facility] [place] [facility] [address] [id number] [place] [address]- 0373 Jan, [facility] [place] [facility] [address] [id number] [place] [address]- 5263 Jan, [facility] [place] [facility] [address] [id number] [place] [address]- 3703 Dec, [facility] [place] [facility] [address] [id number] [place] [address]- 8374 Dec, [facility] [place] [facility] [address] [id number] [place] [address]- 7967 Dec, [facility] [place] [facility] [address] [id number] [place] [address]- 1148 Dec, [facility] [place] [facility] [address] [id number] [place] [address]- 0692 Dec, [facility] [place] [facility] [address] [id number] [place] [address]- 0655 Dec, [facility] [place] [facility] [address] [id number] [place] [address]- 4864 Dec, [facility] [place] [facility] [address] [id number] [place] [address]- 6794 November, [facility] [place] [facility] [address] [id number] [place] [address]- 6659 November, [facility] [address] [id number] [place] [address]- 4231 November, [facility] [place] [facility] [address] [id number] [place] [address]- 3067 Oct, [facility] [place] [facility] [address] [id number] [place] [address]- 0779 Oct, [facility] [place] [facility] [address] [id number] [place] [address]- 0121 Oct, [facility] [place] [facility] [address] [id number] [place] [address]- 2307 Sep, [facility] [place] [facility] [address] [id number] [place] [address]- 3914 Sep, [facility] [place] [facility] [address] [id number] [place] [address]- 2300 Sep, [facility] [address] [id number] [place] [address]- 5712 Sep, [facility] [place] [facility] [address] [id number] [place] [address]- 9683 Sep, [facility] [place] [facility] [address] [id number] [place] [address]- 1222 Aug, [facility] [place] [facility] [address] [id number] [place] [address]- 0921 Aug, [facility] [place] [facility] [address] [id number] [place] [address]- 2235 Aug, [facility] [place] [facility] [address] [id number] [place] [address]- 3303 Aug, [facility] [place] [facility] [address] [id number] [place] [address]- 8922 Jul, [facility] [place] [facility] [address] [id number] [place] [address]- 9613 29 Jul, 2011 [facility] [place] [facility] [address] [id number] [place] [address]- 4227 28 Jul, 2011 [facility] [place] [facility] [address] [id number] [place] [address]- 7062 Jul, [facility] [place] [facility] [address] [id number] [place] [address]- 9539 18 Jul, 2011 [facility] [place] [facility] [address] [id number] [place] [address]- 0377 Jul, [facility] [place] [facility] [address] [id number] [place] [address]- 6445 Jul, [facility] [place] [facility] [address] [id number] [place] [address]- 9278 Jul, [facility] [place] [facility] [address] [id number] [place] [address]- 7477 16 Jun, 2011 [facility] [place] [facility] [address] [id number] [place] [address]- 1342 13 Jun, 2011 [facility] [place] [facility] [address] [id number] [place] [address]- 0457 Jun, [facility] [place] [facility] [address] [id number] [place] [address]- 0313 06 Jun, 2011 [facility] [place] [facility] [address] [id number], [place] [address]- 5483 14 May, 2011 [facility] [place] [facility] [address] [id number], [place] [address]- 2212 31 Apr, 2011 [facility] [place] [facility] [address] [id number] [place] [address]- 0198 13 Mar, 2011 [facility] [place] [facility] [address] [id number] [place] [address]- 5848 16 Dec, 2010 [facility] [place] [facility] [address] [id number] [place] [address]- 0741 10 Aug, 2010 [facility] [place] [facility] [id number] [address]- 2546 Jul, [facility] [place] [id number], [place] [address] Sep, [facility] [place], [facility] [id number], [place] [address] Jul, [facility] [place], [facility] [id number], [place] [address] Jun, [facility] [place], [facility] [id number], [place] [address] Jun, [facility] [place], [facility] [id number], [place] [address] May, [facility] [place], [facility] [id number], [place] [address] Apr, [facility] [place], [facility] [id number], [place] [address] Apr, [facility] [place], [facility] [id number], [place] [address] Apr, [facility] [place], [facility] [id number], [place] [address] Feb, [facility] [place], [facility] [id number], [place] [address] Feb, [facility] [place], [facility] [id number], [place] [address] Jan, [facility] [place], [facility] [id number], [place] [address] November, IMMUNIZATIONS No Known Immunizations SOCIAL HISTORY Never Assessed REASON FOR VISIT Absess f/u left breast -- benny willis PLAN OF CARE Activity Details Follow Up prn Reason: VITAL SIGNS Height 64 in 2017-10-10 Weight 107.6 lbs 2017-10-10 Temperature 98.6 degrees Fahrenheit 2017-10-10 Heart Rate 70 bpm 2017-10-10 Respiratory Rate 18 2017-10-10 BMI 18.47 kg/m2 2017-10-10 Blood pressure systolic 100 mmHg 2017-10-10 Blood pressure diastolic 70 mmHg 2017-10-10 MEDICATIONS Medication Instructions Dosage Frequency Start Date End Date Duration Status Hydrocodone-Acetaminophen 5-325 mg Orally every 4 hrs 1 tablet as needed 4h Sep, Active Clindamycin HCl 300 MG Orally four times daily 1 capsule Sep, Oct, Active Flexeril Not-Taking Amitriptyline HCl 25 MG Orally Once a day 1 tablet 24h Sep, 30 day(s) Active Ibuprofen 800 MG Orally Three times a day 1 tablet with food or milk as needed 8h Active One Daily Not-Taking Neurontin 300 MG Orally 2 times a day 1 capsule 12h Feb, Not -Taking RESULTS No Results PROCEDURES No Known procedures INSTRUCTIONS MEDICATIONS ADMINISTERED No Known Medications MEDICAL (GENERAL) HISTORY Type Description Date Medical History Arthritis Surgical History cholecystectomy Surgical History wisdom teeth extraction Surgical History Partial hysterectomy 2017 Hospitalization History child Hospitalization History colitis
--- OUTSIDE RECORDS SUMMARY | 2018-02-24 22:50 | XMS REPORT ---
Author Author LESLIE CELE [facility] Address [address] [place] [address] Care Team Providers Care [employer]vest[employer] Supervisor Name Role Phone LESLIEALBERTO REIDHANY Unavailable PROBLEMS Type Condition ICD9-CM Code [id number] Code Onset Dates Condition Status SNOMED Code Problem Menstrual migraine without status migrainosus, not intractable G43.829 Active 43924394 Problem Vaginal bleeding N93.9 Active 606445732 Problem Other chronic pain G89.29 Active 37152673 Problem Insomnia, unspecified type G47.00 Active 800991203 Problem History of anxiety Z86.59 Active 818260321 Problem Difficulty of mother performing R63.3 Active 629948154 Problem Rheumatoid arthritis with positive rheumatoid factor, involving unspecified site M05.9 Active 996791889 ALLERGIES No Information ENCOUNTERS Encounter Location Date Diagnosis [facility] [address] [address] Jan, [place] [id number] [place] [address] 11158- 3408 Jan, [facility] [id number] [place] [address] 62371- 0068 Jan, [facility] [id number] [place] [address] 12940- 4588 Jan, [facility] [id number] [place] [address] 85075- 8263 Dec, Pelvic pain R10.2 and Vaginal bleeding N93.9 [facility] [address] [address]00- 2790 Dec, [facility] [id number] [place] [address] 12786- 5257 Dec, [place] [address] [address] Dec, Screening, deficiency anemia, iron Z13.0 [place] [id number] [place] [address] 40866- 0429 Oct, Rheumatoid arthritis with positive rheumatoid factor, involving unspecified site M05.9 [place] [id number] [place] [address] 17962- 8188 Oct, Rheumatoid arthritis with positive rheumatoid factor, involving unspecified site M05.9 [place] [id number] [place] [address] 33552- 5491 Oct, Closed nondisplaced fracture of third metatarsal bone of right foot with routine healing, subsequent encounter S92.334D ; Closed nondisplaced fracture of second metatarsal bone of right foot with routine healing, subsequent encounter S92.324D ; Closed nondisplaced fracture of phalanx of left great toe with routine healing, unspecified phalanx, subsequent encounter S92.405D and Other chronic pain G89.29 [place] [id number] [place] [address] 71805- 1158 Oct, Closed nondisplaced fracture of third metatarsal [...] positive rheumatoid factor, involving unspecified site M05.9 [place] [id number] [place] [address] 56697- 6224 Oct, [place] [id number] [place] [address] 70209- 0703 Oct, Injury of finger of right hand, initial encounter S69.91XA and Closed displaced fracture of distal phalanx of right middle finger, initial encounter S62.632A [place] [id number] [address] Sep, Mastitis N61.0 and MRSA (methicillin resistant staph aureus ) culture positive Z22.322 [place] [address] [address] Sep, [facility] [address] [address] 9740 Sep, Difficulty of mother performing R63.3 [place] [address] [address] 7383 Sep, Acute mastitis of left breast N61.0 [facility] [address] [address] Sep, Abscess L02.91 [place] [address] [address]- 1832 Sep, [place] [address] [address]- 6761 Jun, [place] [address] [address]- 0[address] Jun, care, subsequent in second trimester Z34.82 ; Placenta previa in second trimester O44.02 ; Abnormal quad screen O28.0 ; History of delivery, currently O09.219 and 24 weeks gestation of Z3A.24 [place] [address] [address]- 9[address] 16 May, 2017 Dental examination Z01.20 [place] [id number] [address] 6196 May, History of delivery, currently O09.219 [place] [id number] [place] [address] 82393- 6337 07 May, 2017 [place] [address] [id number] [address]- 6070 May, 20 weeks gestation of Z3A.20 ; care, subsequent in second trimester Z34.82 ; History of delivery, currently O09.219 and Abnormal quad screen O28.0 [place] [id number] [place] [address] 73112- 8785 Apr, Elevated blood sugar level R73.9 and Glucosuria R81 [place] [id number] [place] [address] 53080- 8392 Apr, Elevated blood sugar level R73.9 and Glucosuria R81 [place] [address] 98783- 9248 Apr, Elevated blood sugar level R73.9 [place] [address] 24714- 0124 Apr, [place] [id number] [place] [address] 70824- 1773 Apr, 16 weeks gestation of Z3A.16 ; care, subsequent in second trimester Z34.82 ; Encounter for immunization Z23 and Glucosuria R81 [place] [id number] [place] [address] 32190- 7474 Mar, 12 weeks gestation of Z3A.12 [place] [id number] [place] [address] 16956- 3791 Feb, [place] [id number] [place] [address] 88559- 2031 Feb, care, subsequent in first trimester Z34.81 and 8 weeks gestation of Z3A.08 [place] [id number] [place] [address] 28780- 8463 Jan, [place] [address] 22667- 2666 Jul, Encounter for test, result unknown Z32.00 [place] [id number] [place] [address] 50996- 5053 Jun, control counseling Z30.9 and Insomnia, unspecified type G47.00 [facility] [id number] [place] [address] 77972- 2089 Sep, Encounter for test Z32.00 [facility] [id number] [place] [address] 23239- 1036 Jul, [facility] [address] 50720- 6082 Jul, Well woman exam Z01.419 ; Encounter for screening for malignant neoplasm of cervix Z12.4 ; Vaginal discharge N89.8 ; Routine screening for STI (sexually transmitted infection) Z11.3 ; Encounter for prescription for transdermal contraceptive Z30.49 ; Nausea with vomiting, unspecified R11.2 ; Menstrual migraine without status migrainosus, not intractable G43.829 and History of anxiety Z86.59 [place] [address] 53432- 7476 Jun, Encounter for surveillance of transdermal contraceptive Z30.49 and Sauceda F48.9 [facility] [id number] [place] [address] 90253- 7333 Oct, [facility] [id number] [place] [address] 95530- 1778 Oct, [facility] [id number] [place] [address] 53744- 8537 Jul, [facility] [id number] [place] [address] 76780- 7967 Jul, [facility] [id number] [place] [address] 71283- 9416 Jul, [facility] [address] 03567- 7687 Jul, [facility] [id number] [place] [address] 91284- 5657 Jul, [facility] [address] 29713- 2175 Jul, [facility] [place] [facility] [address] [id number] [place] [address] Jun, [facility] [place] [facility] [address] [id number] [place] [address]- 3100 Jun, [facility] [place] [facility] [address] [id number] [place] [address]- 6905 May, [facility] [place] [facility] [address] [id number] [place] [address]- 5773 May, [facility] [place] [facility] [address] [id number] [place] [address]- 7477 May, [facility] [place] [facility] [address] [id number] [place] [address]- 3499 May, [facility] [place] [facility] [address] [id number] [place] [address]- 1829 Feb, [facility] [place] [facility] [address] [id number] [place] [address]- 3255 Feb, [facility] [place] [facility] [address] [id number] [place] [address]- 3515 Feb, [facility] [place] [facility] [address] [id number] [place] [address]- 7064 Feb, [facility] [place] [facility] [address] [id number] [place] [address]- 6026 Oct, [facility] [place] [facility] [address] [id number] [place] [address]- 7945 Oct, [facility] [place] [facility] [address] [id number] [place] [address]- 2590 Sep, [facility] [place] [facility] [address] [id number] [place] [address]- 9652 Sep, [facility] [place] [facility] [address] [id number] [place] [address]- 4245 Sep, [facility] [place] [facility] [address] [id number] [place] [address] 2546 Sep, [facility] [address] [id number] [place] [address]- 7036 Aug, [facility] [place] [facility] [address] [id number] [place] [address]- 8676 Aug, [facility] [place] [facility] [address] [id number] [place] [address]- 9023 Jul, [facility] [place] [facility] [address] [id number] [place] [address]- 9806 Jul, [facility] [place] [facility] [address] [id number] [place] [address]- 1329 Jun, [facility] [place] [facility] [address] [id number] [place] [address]- 5482 Jun, [facility] [place] [facility] [address] [id number] [place] [address]- 5478 Jun, [facility] [address] [id number] [place] [address]- 4492 Jun, [facility] [place] [facility] [address] [id number] [place] [address]- 5801 Jun, [facility] [address] [facility] [id number] [place] 6215 May, [facility] [place] [facility] [address] [id number] [place] [address]- 4414 May, [facility] [place] [facility] [address] [id number] [place] [address]- 9353 May, [facility] [place] [facility] [address] [id number] [place] [address]- 1776 May, [facility] [place] [facility] [address] [id number] [place] [address]- 2546 Apr, [facility] [place] [facility] [address] [id number] [place] [address]- 6268 Apr, [facility] [address] [id number] [place] [address]- 1298 Apr, [facility] [place] [facility] [address] [id number] [place] [address]- 3904 Feb, [facility] [place] [facility] [address] [id number] [place] [address]- 2459 Jan, [facility] [place] [facility] [address] [id number] [place] [address]- 1529 Aug, [facility] [place] [facility] [address] [id number] [place] [address]- 7984 Aug, [facility] [place] [facility] [address] [id number] [place] [address]- 5957 Aug, [facility] [place] [facility] [address] [id number] [place] [address]- 7594 Aug, [facility] [place] [facility] [address] [id number] [place] [address]- 8525 Aug, [facility] [place] [facility] [address] [id number] [place] [address]- 1035 Aug, [facility] [place] [facility] [address] [id number] [place] [address]- 4109 Jul, [facility] [place] [facility] [address] [id number] [place] [address]- 4191 Jul, [facility] [place] [facility] [address] [id number] [place] [address]- 4556 Jul, [facility] [place] [facility] [address] [id number] [place] [address]- 3584 Jul, [facility] [place] [facility] [address] [id number] [place] [address]- 4752 Jul, [facility] [place] [facility] [address] [id number] [place] [address]- 9037 Jul, [facility] [place] [facility] [address] [id number] [place] [address]- 0212 08 Jul, 2012 [facility] [address] [id number] [place] [address]- 5298 Jun, [facility] [place] [facility] [address] [id number] [place] [address]- 3252 Jun, [facility] [address] [id number] [place] [address]- 6397 Jun, [facility] [address] [id number] [place] [address]- 4548 Jun, [facility] [address] [id number] [place] [address]- 9188 Jun, [facility] [address] [id number] [place] [address]- 0281 Jun, [facility] [address] [id number] [place] [address]- 3118 Jun, [facility] [address] [id number] [place] [address]- 3806 Jun, [facility] [address] [id number] [place] [address]- 1233 Jun, [facility] [address] [id number] [place] [address]- 5404 Jun, [facility] [place] [facility] [address] [id number] [place] [address]- 5671 May, [facility] [address] [id number] [place] [address]- 5540 May, [facility] [place] [facility] [address] [id number] [place] [address]- 1287 May, [facility] [place] [facility] [address] [id number] [place] [address]- 3162 May, [facility] [place] [facility] [address] [id number] [place] [address]- 5736 May, [facility] [place] [facility] [address] [id number] [place] [address]- 9257 Apr, [facility] [place] [facility] [address] [id number] [place] [address]- 1619 Apr, [facility] [place] [facility] [address] [id number] [place] [address]- 5677 Apr, [facility] [place] [facility] [address] [id number] [place] [address]- 6183 Apr, [facility] [place] [facility] [address] [id number] [place] [address]- 6451 Apr, [facility] [place] [facility] [address] [id number] [place] [address]- 0520 25 Mar, 2012 [facility] [place] [facility] [address] [id number] [place] [address]- 4244 20 Mar, 2012 [facility] [place] [facility] [address] [id number] [place] [address]- 5366 12 Mar, 2012 [facility] [place] [facility] [address] [id number] [place] [address]- 8643 07 Mar, 2012 [facility] [place] [facility] [address] [id number] [address]- 3632 06 Mar, 2012 [facility] [place] [facility] [address] [id number] [address]- 4961 05 Mar, 2012 [facility] [place] [facility] [address] [id number] [address]- 0166 Feb, [facility] [place] [facility] [address] [id number] [place] [address]- 8892 Feb, [facility] [place] [facility] [address] [id number] [place] [address]- 3677 Feb, [facility] [place] [facility] [address] [id number] [address]- 4363 Feb, [facility] [place] [facility] [address] [id number] [address]- 6580 Feb, [facility] [place] [facility] [address] [id number] [place] [address]- 8030 Jan, [facility] [place] [facility] [address] [id number] [place] [address]- 2409 Jan, [facility] [place] [facility] [address] [id number] [place] [address]- 9572 Jan, [facility] [place] [facility] [address] [id number] [place] [address]- 6770 Jan, [facility] [place] [facility] [address] [id number] [place] [address]- 1754 Jan, [facility] [place] [facility] [address] [id number] [place] [address]- 8916 Jan, [facility] [place] [facility] [address] [id number] [place] [address]- 8498 Dec, [facility] [place] [facility] [address] [id number] [place] [address]- 1372 Dec, [facility] [place] [facility] [address] [id number] [place] [address]- 3757 Dec, [facility] [place] [facility] [address] [id number] [place] [address]- 9425 Dec, [facility] [place] [facility] [address] [id number] [place] [address]- 8976 Dec, [facility] [place] [facility] [address] [id number] [place] [address]- 4042 Dec, [facility] [place] [facility] [address] [id number] [place] [address]- 8119 Dec, [facility] [place] [facility] [address] [id number] [place] [address]- 4614 November, [facility] [place] [facility] [address] [id number] [place] [address]- 4903 November, [facility] [place] [facility] [address] [id number] [place] [address]- 3259 November, [facility] [place] [facility] [address] [id number] [place] [address]- 9600 Oct, [facility] [place] [facility] [address] [id number] [place] [address]- 4132 Oct, [facility] [place] [facility] [address] [id number] [place] [address]- 8830 Oct, [facility] [place] [facility] [address] [id number] [place] [address]- 7049 Sep, [facility] [place] [facility] [address] [id number] [place] [address]- 6550 Sep, [facility] [place] [facility] [address] [id number] [place] [address]- 5192 Sep, [facility] [place] [facility] [address] [id number] [place] [address]- 5937 Sep, [facility] [place] [facility] [address] [id number] [place] [address]- 9252 Sep, [facility] [place] [facility] [address] [id number] [place] [address]- 2701 Aug, [facility] [place] [facility] [address] [id number] [place] [address]- 2778 Aug, [facility] [place] [facility] [address] [id number] [place] [address]- 6948 Aug, [facility] [place] [facility] [address] [id number] [place] [address]- 2015 Aug, [facility] [place] [facility] [address] [id number] [place] [address]- 0565 Jul, [facility] [place] [facility] [address] [id number] [place] [address]- 0859 Jul, [facility] [place] [facility] [address] [id number] [place] [address]- 3432 28 Jul, 2011 [facility] [place] [facility] [address] [id number] [place] [address]- 8998 Jul, [facility] [place] [facility] [address] [id number] [place] [address]- 2804 18 Jul, 2011 [facility] [place] [facility] [address] [id number] [place] [address]- 3469 12 Jul, 2011 [facility] [place] [facility] [address] [id number] [place] [address]- 6648 11 Jul, 2011 [facility] [place] [facility] [address] [id number] [place] [address]- 6234 10 Jul, 2011 [facility] [place] [facility] [address] [id number] [place] [address]- 1791 16 Jun, 2011 [facility] [place] [facility] [address] [id number] [place] [address]- 2424 Jun, [facility] [place] [facility] [address] [id number] [place] [address]- 2731 12 Jun, 2011 [facility] [place] [facility] [address] [id number] [place] [address]- 7073 06 Jun, 2011 [facility] [place] [facility] [address] [id number] [place] [address] 14 May, 2011 [facility] [place] [facility] [address] [id number] [place] [address] 31 Apr, 2011 [facility] [place] [facility] [address] [id number] [place] [address] 13 Mar, 2011 [facility] [place] [facility] [address] [id number] [place] [address] 16 Dec, 2010 [facility] [place] [facility] [address] [id number] [place] [address] 10 Aug, 2010 [facility] [place] [facility] [address] [id number] [place] [address] 11 Jul, 2010 [facility] [place] [facility] [id number] [address] Sep, [facility] [id number] [address] Jul, [facility] [id number] [address] Jun, [facility] [id number] [address] Jun, [facility] [id number] [address] May, [facility] [id number] [place] [address] Apr, [facility] [id number] [address] Apr, [facility] [id number] [place] [address] Apr, [facility] [id number] [address] Feb, [facility] [id number] [address] Feb, [facility] [id number] [address] Jan, [facility] [id number] [address] November, IMMUNIZATIONS No Known Immunizations SOCIAL HISTORY Never Assessed REASON FOR VISIT Medication question PLAN OF CARE VITAL SIGNS MEDICATIONS Medication [...]
--- OUTSIDE RECORDS SUMMARY | 2018-02-24 22:50 | XMS REPORT ---
Author Author CHEYENNE JACKSON [facility] Address [address] [place] [address] Care Team Providers Care Bond Manager Name Role Phone CHEYENNE JACKSON Unavailable PROBLEMS Type Condition ICD9-CM Code IME32-ZG Code Onset Dates Condition Status SNOMED Code Problem Menstrual migraine without status migrainosus, not intractable G43.829 Active 82180547 Problem Vaginal bleeding N93.9 Active 916198739 Problem Other chronic pain G89.29 Active 74111727 Problem Insomnia, unspecified type G47.00 Active 869549073 Problem History of anxiety Z86.59 Active 804910018 Problem Difficulty of mother performing R63.3 Active 946053849 Problem Rheumatoid arthritis with positive rheumatoid factor, involving unspecified site M05.9 Active 288825856 ALLERGIES Substance Reaction Event Type Date Status Tylenol/Codeine #3 Unknown Drug Allergy Sep, Active Tramadol HCl vomiting Drug Allergy Sep, Active ENCOUNTERS Encounter Location Date Diagnosis [facility] [id number] [place] [address] 65749- 6487 Jan, [facility] [id number] [place] [address] 49570- 9154 Jan, [facility] [id number] [place] [address] 44835- 9996 Jan, [facility] [id number] [place] [address] 89328- 2516 Dec, Pelvic pain R10.2 and Vaginal bleeding N93.9 [facility] [id number] [place] [address] 99863- 4412 Dec, [facility] [address] [address]- 8505 Dec, [facility] [id number], [place] [address] Dec, Screening, deficiency anemia, iron Z13.0 [facility] [id number] [place] [address] 12681- 2468 Oct, Rheumatoid arthritis with positive rheumatoid factor, involving unspecified site M05.9 [facility] [id number] [place] [address] 79598- 1752 Oct, Rheumatoid arthritis with positive rheumatoid factor, involving unspecified site M05.9 [facility] [id number] [place] [address] 58600- 6201 Oct, Closed nondisplaced fracture of third metatarsal bone of right foot with routine healing, subsequent encounter S92.334D ; Closed nondisplaced fracture of second metatarsal bone of right foot with routine healing, subsequent encounter S92.324D ; Closed nondisplaced fracture of phalanx of left great toe with routine healing, unspecified phalanx, subsequent encounter S92.405D and Other chronic pain G89.29 [facility] [address] [place] [address] 68800- 7126 Oct, Closed nondisplaced fracture of third metatarsal [...] positive rheumatoid factor, involving unspecified site M05.9 [facility] [address] [place] [address] 72572- 4210 Oct, [facility] [id number] [place] [address] 22355- 0354 Oct, Injury of finger of right hand, initial encounter S69.91XA and Closed displaced fracture of distal phalanx of right middle finger, initial encounter S62.632A [facility] [address], [place] [address] 7489 Sep, Mastitis N61.0 and MRSA (methicillin resistant staph aureus ) culture positive Z22.322 [facility] [address] [address] 7894 Sep, [facility] [id number] [place] [address] 04801- 0241 Sep, Difficulty of mother performing R63.3 [facility] [address] [place] [address] 55292- 7524 Sep, Acute mastitis of left breast N61.0 [facility] [address] [place] [address] 27868 -1954 Sep, Abscess L02.91 [facility] [address] [place] [address] 01233- 8797 Sep, [facility] [address] [place] [address] 12069- 5549 Jun, [facility] [address] [place] [address] 95132- 9913 Jun, care, subsequent in second trimester Z34.82 ; Placenta previa in second trimester O44.02 ; Abnormal quad screen O28.0 ; History of delivery, currently O09.219 and 24 weeks gestation of Z3A.24 [facility] [address] [place] [address] 29218- 4616 16 May, 2017 Dental examination Z01.20 [facility] [id number], [place] [address]- 8317 08 May, 2017 History of delivery, currently O09.219 [facility] [id number] [place] [address] 02404- 3254 07 May, 2017 [facility] [id number], [place] [address]- 2627 May, 20 weeks gestation of Z3A.20 ; care, subsequent in second trimester Z34.82 ; History of delivery, currently O09.219 and Abnormal quad screen O28.0 [facility] [id number] [place] [address] 64706- 4823 Apr, Elevated blood sugar level R73.9 and Glucosuria R81 [facility] [address] 75921- 0421 Apr, Elevated blood sugar level R73.9 and Glucosuria R81 [facility] [address] 86679- 6259 Apr, Elevated blood sugar level R73.9 [facility] [id number] [place] [address] 46469- 6310 Apr, [facility] [address] 70211- 9509 Apr, 16 weeks gestation of Z3A.16 ; care, subsequent in second trimester Z34.82 ; Encounter for immunization Z23 and Glucosuria R81 [facility] [id number] [place] [address] 08358- 9944 Mar, 12 weeks gestation of Z3A.12 [facility] [id number] [place] [address] 73469- 0975 Feb, [facility] [id number] [place] [address] 67920- 1857 Feb, care, subsequent in first trimester Z34.81 and 8 weeks gestation of Z3A.08 [facility] [place] [id number] [place] [address] 35552- 8889 Jan, [facility] [address] 41079- 7452 Jul, Encounter for test, result unknown Z32.00 [facility] [address] 38189- 0709 Jun, control counseling Z30.9 and Insomnia, unspecified type G47.00 [facility] [id number] [place] [address] 13417- 3980 Sep, Encounter for test Z32.00 [facility] [id number] [place] [address] 89683- 1985 Jul, [facility] [address] 25501- 8133 Jul, Well woman exam Z01.419 ; Encounter for screening for malignant neoplasm of cervix Z12.4 ; Vaginal discharge N89.8 ; Routine screening for STI (sexually transmitted infection) Z11.3 ; Encounter for prescription for transdermal contraceptive Z30.49 ; Nausea with vomiting, unspecified R11.2 ; Menstrual migraine without status migrainosus, not intractable G43.829 and History of anxiety Z86.59 [facility] [address] 66581- 8715 Jun, Encounter for surveillance of transdermal contraceptive Z30.49 and Sauceda F48.9 [facility] [id number] [place] [address] 90015- 2781 Oct, [facility] [id number] [place] [address] 23228- 1930 Oct, [facility] [id number] [place] [address] 58166- 0043 Jul, [facility] [id number] [place] [address] 18745- 4387 Jul, [facility] [id number] [place] [address] 13548- 2678 Jul, [facility] [id number] [place] [address] 72624- 6159 Jul, [facility] [id number] [place] [address] 44056- 6881 Jul, [facility] [id number] [place] [address] 35363- 4899 Jul, [facility] [place] [facility] [address] [id number] [place] [address]- 0844 Jun, [facility] [place] [facility] [address] [id number] [place] 7781 Jun, [facility] [place] [facility] [address] [facility] [id number] [place] [address]- 3631 May, [facility] [place] [facility] [address] [id number] [place] [address]- 1104 May, [facility] [place] [facility] [address] [id number] [place] [address]- 2368 May, [facility] [place] [facility] [address] [id number] [place] [address]- 8123 May, [facility] [place] [facility] [address] [facility] [id number] [place] [address]- 2766 Feb, [facility] [place] [facility] [address] [id number] [place] [address]- 2079 Feb, [facility] [place] [facility] [address] [id number] [place] [address]- 7420 Feb, [facility] [place] [facility] [address] [facility] [id number] [place] [address]- 5643 Feb, [facility] [place] [facility] [address] [id number] [place] [address]- 1635 Oct, [facility] [place] [facility] [address] [id number], [place] [address]- 4726 Oct, [facility] [place] [facility] [address] [id number] [place] [address]- 1663 Sep, [facility] [place] [facility] [address] [id number] [place] [address]- 0208 Sep, [facility] [place] [facility] [address] [facility] [id number] [place] [address]- 6872 Sep, [facility] [place] [facility] [address] [id number] [place] [address]- 5382 Sep, [facility] [place] [facility] [address] [id number] [place] [address]- 5389 Aug, [facility] [place] [facility] [address] [id number] [place] [address]- 7996 Aug, [facility] [place] [facility] [address] [id number] [place] [address]- 7081 Jul, [facility] [place] [facility] [address] [id number] [place] [address]- 1351 Jul, [facility] [place] [facility] [address] [id number] [place] [address]- 0628 Jun, [facility] [place] [facility] [address] [id number] [place] [address]- 9183 Jun, [facility] [place] [facility] [address] [id number] [place] [address]- 7229 Jun, [facility] [place] [facility] [address] [id number] [place] [address]- 7279 Jun, [facility] [place] [facility] [address] [id number] [place] [address]- 1958 Jun, [facility] [place] [facility] [address] [id number] [place] [address]- 2264 May, [facility] [place] [facility] [address] [id number] [place] [address]- 1317 May, [facility] [place] [facility] [address] [id number] [place] [address]- 0695 May, [facility] [place] [facility] [address] [id number] [place] [address]- 3022 May, [facility] [place] [facility] [address] [id number] [place] [address]- 8482 Apr, [facility] [place] [facility] [address] [id number] [place] [address]- 0658 Apr, [facility] [address] [id number] [place] [address]- 8563 Apr, [facility] [address] [id number] [place] [address]- 0856 Feb, [facility] [address] [facility] [id number] [place] [address]- 1071 Jan, [facility] [address] [id number] [place] [address]- 4865 Aug, [facility] [address] [id number] [place] [address]- 7563 Aug, [facility] [address] [id number] [place] [address]- 5162 Aug, [facility] [address] [facility] [id number] [place] [address]- 2192 Aug, [facility] [address] [id number] [place] [address]- 5875 Aug, [facility] [address] [id number] [place] [address]- 9985 Aug, [facility] [address] [id number] [place] [address]- 2227 Jul, [facility] [address] [id number] [place] [address]- 3658 Jul, [facility] [place] [facility] [address] [id number] [place] [address]- 5783 Jul, [facility] [place] [facility] [address] [id number] [place] [address]- 8848 Jul, [facility] [place] [facility] [address] [id number] [place] [address]- 6322 16 Jul, 2012 [facility] [place] [facility] [address] [facility] [id number] [place] [address]- 5318 Jul, [facility] [place] [facility] [address] [id number] [place] [address]- 9431 08 Jul, 2012 [facility] [place] [facility] [address] [id number] [place] [address]- 6925 Jun, [facility] [place] [facility] [address] [id number] [place] [address]- 8326 Jun, [facility] [place] [facility] [address] [id number] [place] [address]- 8571 Jun, [facility] [place] [facility] [address] [id number] [place] [address]- 8234 Jun, [facility] [place] [facility] [address] [id number] [place] [address]- 6092 Jun, [facility] [place] [facility] [address] [id number] [place] [address]- 0951 Jun, [facility] [place] [facility] [address] [id number] [place] [address]- 5056 Jun, [facility] [place] [facility] [address] [id number] [place] [address]- 4883 Jun, [facility] [place] [facility] [address] [id number] [place] [address]- 4192 Jun, [facility] [place] [facility] [address] [id number] [place] [address]- 8539 Jun, [facility] [place] [facility] [address] [id number] [place] [address]- 8520 May, [facility] [place] [facility] [address] [id number] [place] [address]- 4698 May, [facility] [place] [facility] [address] [id number] [place] [address]- 9276 May, [facility] [place] [facility] [address] [id number] [place] [address]- 2606 May, [facility] [place] [facility] [address] [id number] [place] [address]- 1021 May, [facility] [place] [facility] [address] [id number] [place] [address]- 6094 Apr, [facility] [place] [facility] [address] [id number] [place] [address]- 6669 Apr, [facility] [place] [facility] [address] [id number] [place] [address]- 1786 Apr, [facility] [place] [facility] [address] [id number] [place] [address]- 6619 15 Apr, 2012 [facility] [place] [facility] [address] [id number] [place] [address]- 0566 Apr, [facility] [place] [facility] [address] [id number] [place] [address]- 5148 25 Mar, 2012 [facility] [place] [facility] [address] [id number] [place] [address]- 8435 20 Mar, 2012 [facility] [place] [facility] [address] [id number] [place] [address]- 9799 12 Mar, 2012 [facility] [place] [facility] [address] [id number] [place] [address]- 1846 07 Mar, 2012 [facility] [place] [facility] [address] [id number] [place] [address]- 5868 06 Mar, 2012 [facility] [place] [facility] [address] [id number], [place] [address]- 6781 05 Mar, 2012 [facility] [place] [facility] [address] [id number], [place] [address]- 1602 Feb, [facility] [place] [facility] [address] [id number] [place] [address]- 3947 Feb, [facility] [place] [facility] [address] [id number], [place] [address]- 2368 Feb, [facility] [place] [facility] [address] [id number] [place] [address]- 0686 Feb, [facility] [place] [facility] [address] [id number] [place] [address]- 6372 Feb, [facility] [place] [facility] [address] [id number] [place] [address]- 6931 Jan, [facility] [place] [facility] [address] [id number] [place] [address]- 4537 Jan, [facility] [place] [facility] [address] [id number] [place] [address]- 8566 Jan, [facility] [place] [facility] [address] [id number] [place] [address]- 8678 Jan, [facility] [place] [facility] [address] [id number] [place] [address]- 3083 Jan, [facility] [place] [facility] [address] [id number] [place] [address]- 3231 Jan, [facility] [place] [facility] [address] [id number] [place] [address]- 6943 Dec, [facility] [place] [facility] [address] [id number] [place] [address]- 6931 Dec, [facility] [place] [facility] [address] [id number] [place] [address]- 9154 Dec, [facility] [place] [facility] [address] [id number] [place] [address]- 4192 Dec, [facility] [place] [facility] [address] [id number] [place] [address]- 5052 Dec, [facility] [place] [facility] [address] [id number] [place] [address]- 5988 Dec, [facility] [place] [facility] [address] [id number] [place] [address]- 1004 Dec, [facility] [place] [facility] [address] [id number] [place] [address]- 1784 November, [facility] [place] [facility] [address] [id number] [place] [address]- 4985 November, [facility] [place] [facility] [address] [id number] [place] [address]- 1025 November, [facility] [place] [facility] [address] [id number] [place] [address]- 7138 Oct, [facility] [place] [facility] [address] [id number] [place] [address]- 0619 Oct, [facility] [place] [facility] [address] [id number] [place] [address]- 3390 Oct, [facility] [place] [facility] [address] [id number] [place] [address]- 7570 Sep, [facility] [place] [facility] [address] [id number] [place] [address]- 4026 Sep, [facility] [address] [id number] [place] [address]- 4066 Sep, [facility] [place] [facility] [address] [id number] [place] [address]- 9055 Sep, [facility] [place] [facility] [address] [id number] [place] [address]- 0355 Sep, [facility] [place] [facility] [address] [id number] [place] [address]- 0532 Aug, [facility] [place] [facility] [address] [id number] [place] [address]- 6850 Aug, [facility] [place] [facility] [address] [id number] [place] [address]- 6925 Aug, [facility] [place] [facility] [address] [id number] [place] [address]- 2099 Aug, [facility] [place] [facility] [address] [id number] [place] [address]- 9296 Jul, [facility] [place] [facility] [address] [id number] [place] [address]- 5845 Jul, [facility] [place] [facility] [address] [id number], [place] [address]- 4538 28 Jul, 2011 [facility] [address] [id number] [place] [address]- 1851 27 Jul, 2011 [facility] [place] [facility] [address] [id number] [place] [address]- 6585 18 Jul, 2011 [facility] [address] [facility] [id number] [place] [address]- 5955 12 Jul, 2011 [facility] [address] [id number] [place] [address]- 7512 11 Jul, 2011 [facility] [address] [facility] [id number] [place] [address]- 9722 10 Jul, 2011 [facility] [address] [facility] [id number] [place] [address]- 8662 16 Jun, 2011 [facility] [address], [place] [address]- 8269 Jun, [facility] [place] [facility] [address] [id number] [place] [address]- 8847 Jun, [facility] [id number] [place] [address]- 0747 06 Jun, 2011 [facility] [id number] [place] [address]- 9374 14 May, 2011 [facility] [address] [id number], [place] [address]- 6186 31 Apr, 2011 [facility] [place] [facility] [address] [id number], [place] [address]- 4909 13 Mar, 2011 [facility] [place] [facility] [address] [id number], [place] [address]- 0221 16 Dec, 2010 [facility] [place] [facility] [address] [facility] [id number], [place] [address]- 9734 10 Aug, 2010 [facility] [place] [facility] [address] [facility] [id number], [place] [address]- 4314 11 Jul, 2010 [facility] [place] [facility] [address], [place] [address] Sep, [facility] [id number] [address] Jul, [facility] [id number] [address] Jun, [facility] [id number] [address] Jun, [facility] [id number] [address] May, [facility] [id number] [address] Apr, [facility] [id number] [address] Apr, [facility] [id number], [place] [address] Apr, [facility] [id number], [place] [address] Feb, [facility] [id number], [place] [address] Feb, [facility] [id number], [place] [address] Jan, [facility] [id number] [address] November, IMMUNIZATIONS No Known Immunizations SOCIAL HISTORY Never Assessed REASON FOR VISIT Painful left breast- has not breastfed x4 days Memo [place] tooth on left side, pharmacy would not fill pain med out [place] state PLAN OF CARE Activity Details Follow Up prn Reason: VITAL SIGNS Height 64 in 2017-10-06 Weight 104.6 lbs 2017-10-06 Temperature 99.7 degrees Fahrenheit 2017-10-06 Heart Rate 112 bpm 2017-10-06 Respiratory Rate 22 2017-10-06 BMI 17.95 kg/m2 2017-10-06 Blood pressure systolic 120 mmHg 2017-10-06 Blood pressure diastolic 72 mmHg 2017-10-06 MEDICATIONS Medication Instructions Dosage Frequency Start Date End Date Duration Status One Daily Not-Taking Clindamycin HCl - Orally BID x10 days 1 capsule Active Amitriptyline HCl 25 MG Orally Once a day 1 tablet 24h Sep, 30 day(s) Active Naproxen 250 MG Orally Twice a day 1 tablet 12h Not-Taking Rhinelander 250 MG/ML Intramuscular once weekly 1 ml May, Not- Taking Neurontin 300 MG Orally 2 times a day 1 capsule 12h Feb, Not -Taking Hydrocodone-Acetaminophen 5-325 mg take 1 tablet by oral route every 4 hours as needed for pain May, Not-Taking Flexeril Not-Taking RESULTS No Results PROCEDURES No Known procedures INSTRUCTIONS MEDICATIONS ADMINISTERED No Known Medications MEDICAL (GENERAL) HISTORY Type Description Date Medical History Arthritis Surgical History cholecystectomy Surgical History wisdom teeth extraction Surgical History Partial hysterectomy 2017 Hospitalization History child Hospitalization History colitis
--- OUTSIDE RECORDS SUMMARY | 2018-02-24 22:50 | XMS REPORT ---
Author Author LESLIE CELE [facility] Address [address] [place] [address] Care Team Providers Care Insurance Sales Agent Name Role Phone LESLIEALBERTO REIDHANY Unavailable PROBLEMS Type Condition ICD9-CM Code HAP64-YF Code Onset Dates Condition Status SNOMED Code Problem Menstrual migraine without status migrainosus, not intractable G43.829 Active 59986981 Problem Vaginal bleeding N93.9 Active 395167691 Problem Other chronic pain G89.29 Active 19895873 Problem Insomnia, unspecified type G47.00 Active 536428319 Problem History of anxiety Z86.59 Active 375666408 Problem Difficulty of mother performing R63.3 Active 936349952 Problem Rheumatoid arthritis with positive rheumatoid factor, involving unspecified site M05.9 Active [id number] ALLERGIES No Information ENCOUNTERS Encounter Location Date Diagnosis [facility] [id number] [address] 49959- 9713 Jan, [facility] [id number] [place] [address] 76533- 2692 Jan, [facility] [id number] [address] 68265- 9111 Jan, [facility] [id number] [address] 27212- 6531 Dec, Pelvic pain R10.2 and Vaginal bleeding N93.9 [facility] [id number] [address] 37110- 4958 Dec, [facility] [address] 78363- 3461 Dec, [facility] [id number] [address] 41018- 7997 Dec, Screening, deficiency anemia, iron Z13.0 [facility] [id number] [address]99 Oct, Rheumatoid arthritis with positive rheumatoid factor, involving unspecified site M05.9 [facility] [address] [address] 6813 Oct, Rheumatoid arthritis with positive rheumatoid factor, involving unspecified site M05.9 [facility] [id number] [address] 56792- 4728 Oct, Closed nondisplaced fracture of third metatarsal bone of right foot with routine healing, subsequent encounter S92.334D ; Closed nondisplaced fracture of second metatarsal bone of right foot with routine healing, subsequent encounter S92.324D ; Closed nondisplaced fracture of phalanx of left great toe with routine healing, unspecified phalanx, subsequent encounter S92.405D and Other chronic pain G89.29 [facility] [id number] [address] 82070- 8462 17 Oct, 2017 Closed nondisplaced fracture of [...] positive rheumatoid factor, involving unspecified site M05.9 [facility] [id number] [address] 33252- 3817 Oct, [facility] [id number] [address] 69007- 4477 Oct, Injury of finger of right hand, initial encounter S69.91XA and Closed displaced fracture of distal phalanx of right middle finger, initial encounter S62.632A [facility] [address] [id number] [address] 6616 Sep, Mastitis N61.0 and MRSA (methicillin resistant staph aureus ) culture positive Z22.322 [facility] [address] [facility] [id number] [address] Sep, [facility] [id number] [address] 59916- 8587 Sep, Difficulty of mother performing R63.3 [facility] [place] [id number] [place] [address] 54053- 6030 Sep, Acute mastitis of left breast N61.0 [facility] [address] [id number] [address] Sep, Abscess L02.91 [facility] [id number] [address] 08139- 5560 Sep, [facility] [address] [address]- 4601 Jun, [facility] [id number] [place] [address] 53377- 6858 Jun, care, subsequent in second trimester Z34.82 ; Placenta previa in second trimester O44.02 ; Abnormal quad screen O28.0 ; History of delivery, currently O09.219 and 24 weeks gestation of Z3A.24 [facility] [address] [address]- 4166 16 May, 2017 Dental examination Z01.20 [facility] [id number] [address] 54692- 0121 08 May, 2017 History of delivery, currently O09.219 [facility] [id number] [address] 28412- 4241 07 May, 2017 [place] [place] [address] [place] [address] 11146- 6017 May, 20 weeks gestation of Z3A.20 ; care, subsequent in second trimester Z34.82 ; History of delivery, currently O09.219 and Abnormal quad screen O28.0 [facility] [id number] [address] 47238- 5397 Apr, Elevated blood sugar level R73.9 and Glucosuria R81 [facility] [address] 65879- 7720 Apr, Elevated blood sugar level R73.9 and Glucosuria R81 [facility] [address] 42747- 3898 Apr, Elevated blood sugar level R73.9 [facility] [address] 93417- 7901 Apr, [facility] [address] 05840- 7714 Apr, 16 weeks gestation of Z3A.16 ; care, subsequent in second trimester Z34.82 ; Encounter for immunization Z23 and Glucosuria R81 [facility] [id number] [place] [address] 04136- 4133 Mar, 12 weeks gestation of Z3A.12 [facility] [address] 54318- 6814 Feb, [facility] [address] 76261- 6038 Feb, care, subsequent in first trimester Z34.81 and 8 weeks gestation of Z3A.08 [facility] [id number] [address] 95230- 2015 Jan, [facility] [address] 74899- 2272 Jul, Encounter for test, result unknown Z32.00 [facility] [id number] [place] [address] 45155- 8365 Jun, control counseling Z30.9 and Insomnia, unspecified type G47.00 [facility] [address] 85645- 8611 Sep, Encounter for test Z32.00 [facility] [address] 43283- 4081 Jul, [facility] [id number] [address] 67085- 1775 Jul, Well woman exam Z01.419 ; Encounter for screening for malignant neoplasm of cervix Z12.4 ; Vaginal discharge N89.8 ; Routine screening for STI (sexually transmitted infection) Z11.3 ; Encounter for prescription for transdermal contraceptive Z30.49 ; Nausea with vomiting, unspecified R11.2 ; Menstrual migraine without status migrainosus, not intractable G43.829 and History of anxiety Z86.59 [facility] [id number] [place] [address] 21366- 3214 Jun, Encounter for surveillance of transdermal contraceptive Z30.49 and Sauceda F48.9 [facility] [address] 42431- 6525 Oct, [facility] [address] 62566- 9355 Oct, [facility] [address] 82992- 9833 Jul, [facility] [id number] [address] 16051- 2860 Jul, [facility] [id number] [address] 03850- 8622 Jul, [facility] [id number] [address] 14909- 9652 Jul, [facility] [address] 18390- 1597 Jul, [facility] [id number] [address] 07737- 7283 Jul, [facility] [address] 00547- 2546 Jun, [facility] [place] [facility] [address] [id number] [place] 6344 Jun, [facility] [place] [facility] [address] [id number] [place] 1446 May, [facility] [place] [facility] [address] [id number] [place] [address]- 5232 May, [facility] [place] [facility] [address] [id number] [place] [address]- 2019 May, [facility] [place] [facility] [address] [id number] [place] [address]- 6397 May, [facility] [place] [facility] [address] [id number] [place] [address]- 3573 Feb, [facility] [place] [facility] [address] [id number] [place] [address]- 6381 Feb, [facility] [place] [facility] [address] [id number] [place] [address]- 2700 Feb, [facility] [place] [facility] [address] [id number] [place] [address]- 0697 Feb, [facility] [place] [facility] [address] [id number] [place] [address]- 4347 Oct, [facility] [place] [facility] [address] [id number] [place] [address]- 1949 Oct, [facility] [place] [facility] [address] [id number] [place] [address]- 3209 Sep, [facility] [place] [facility] [address] [id number] [place] [address]- 8701 Sep, [facility] [place] [facility] [address] [id number] [place] [address]- 9499 Sep, [facility] [place] [facility] [address] [id number] [place] [address]- 4463 Sep, [facility] [place] [facility] [address] [id number] [place] [address]- 0914 Aug, [facility] [address] [id number] [place] [address]- 1134 Aug, [facility] [place] [facility] [address] [id number] [place] [address]- 5187 Jul, [facility] [address] [id number] [place] [address]- 4042 Jul, [facility] [place] [facility] [address] [id number] [place] [address]- 3364 Jun, [facility] [place] [facility] [address] [id number] [place] [address]- 1812 Jun, [facility] [place] [facility] [address] [id number] [place] [address]- 2075 Jun, [facility] [place] [facility] [address] [id number] [place] [address]- 0887 Jun, [facility] [address] [id number] [place] [address]- 3433 Jun, [facility] [place] [facility] [address] [id number] [place] [address]- 1454 May, [facility] [address] [id number] [place] [address]- 4593 May, [facility] [place] [facility] [address] [id number] [place] [address]- 1707 May, [facility] [place] [facility] [address] [id number] [place] [address]- 9397 May, [facility] [place] [facility] [address] [id number] [place] [address]- 9434 Apr, [facility] [place] [facility] [address] [id number] [place] [address]- 2546 Apr, [facility] [place] [facility] [address] [id number] [place] [address]- 9231 Apr, [facility] [address] [id number] [place] [address]- 8166 Feb, [facility] [place] [facility] [address] [id number] [place] [address]- 3010 Jan, [facility] [place] [facility] [address] [id number] [place] [address]- 5668 Aug, [facility] [place] [facility] [address] [id number] [place] [address]- 9265 Aug, [facility] [place] [facility] [address] [id number] [place] [address]- 5837 Aug, [facility] [place] [facility] [address] [id number] [place] [address]- 0543 Aug, [facility] [place] [facility] [address] [id number] [place] [address]- 1720 Aug, [facility] [place] [facility] [address] [id number] [place] [address]- 0922 Aug, [facility] [place] [facility] [address] [id number] [place] [address]- 5245 Jul, [facility] [place] [facility] [address] [id number] [place] [address]- 6202 Jul, [facility] [place] [facility] [address] [id number] [place] [address]- 9953 Jul, [facility] [place] [facility] [address] [id number] [place] [address]- 8414 Jul, [facility] [place] [facility] [address] [id number] [place] [address]- 1492 Jul, [facility] [place] [facility] [address] [id number] [place] [address]- 5821 Jul, [facility] [place] [facility] [address] [id number] [place] [address]- 6971 Jul, [facility] [place] [facility] [address] [id number] [place] [address]- 7244 Jun, [facility] [address] [id number] [place] [address]- 8525 Jun, [facility] [place] [facility] [address] [id number] [place] [address]- 4226 Jun, [facility] [address] [id number] [place] [address]- 8810 Jun, [facility] [place] [facility] [address] [id number] [place] [address]- 8986 Jun, [facility] [address] [id number] [place] [address]- 1135 Jun, [facility] [address] [id number] [place] [address]- 1494 Jun, [facility] [address] [id number] [place] [address]- 0815 Jun, [facility] [address] [id number] [place] [address]- 2175 Jun, [facility] [place] [facility] [address] [id number] [place] [address]- 4701 Jun, [facility] [address] [facility] [id number] [place] [address]- 2117 May, [facility] [place] [facility] [address] [id number] [place] [address]- 6873 May, [facility] [place] [facility] [address] [id number] [place] [address]- 6623 May, [facility] [place] [facility] [address] [id number] [place] [address]- 8930 May, [facility] [place] [facility] [address] [id number] [place] [address]- 8355 May, [facility] [place] [facility] [address] [id number] [place] 0168 Apr, [facility] [place] [facility] [address] [id number] [place] [address]- 9666 31 Apr, 2012 [facility] [place] [facility] [address] [id number] [place] [address]- 8976 Apr, [facility] [place] [facility] [address] [id number] [place] [address]- 8292 15 Apr, 2012 [facility] [place] [facility] [address] [id number] [place] [address]- 3775 04 Apr, 2012 [facility] [place] [facility] [address] [id number] [place] [address]- 5317 25 Mar, 2012 [facility] [place] [facility] [address] [id number] [place] [address]- 5301 20 Mar, 2012 [facility] [place] [facility] [address] [id number] [place] [address]- 4758 12 Mar, 2012 [facility] [place] [facility] [address] [id number] [place] [address]- 1667 07 Mar, 2012 [facility] [place] [facility] [address] [id number] [place] [address]- 2765 06 Mar, 2012 [facility] [place] [facility] [address] [id number] [address]- 3158 05 Mar, 2012 [facility] [place] [facility] [address] [id number] [address]- 3297 Feb, [facility] [place] [facility] [address] [id number] [address]- 8161 Feb, [facility] [place] [facility] [address] [id number] [place] [address]- 5216 Feb, [facility] [place] [facility] [address] [id number] [address]- 2684 Feb, [facility] [place] [facility] [address] [id number] [address]- 9945 Feb, [facility] [place] [facility] [address] [id number] [place] [address]- 1345 Jan, [facility] [place] [facility] [address] [id number] [place] [address]- 7027 Jan, [facility] [place] [facility] [address] [id number] [place] [address]- 4443 Jan, [facility] [place] [facility] [address] [id number] [place] [address]- 1040 Jan, [facility] [place] [facility] [address] [id number] [place] [address]- 4836 Jan, [facility] [place] [facility] [address] [id number] [place] [address]- 0180 Jan, [facility] [place] [facility] [address] [id number] [place] [address]- 5150 Dec, [facility] [place] [facility] [address] [id number] [place] [address]- 4934 Dec, [facility] [place] [facility] [address] [id number] [place] [address]- 2856 Dec, [facility] [place] [facility] [address] [id number] [place] [address]- 4545 Dec, [facility] [place] [facility] [address] [id number] [place] [address]- 5775 Dec, [facility] [place] [facility] [address] [id number] [place] [address]- 3878 Dec, [facility] [place] [facility] [address] [id number] [place] [address]- 0533 Dec, [facility] [place] [facility] [address] [id number] [place] [address]- 2116 November, [facility] [place] [facility] [address] [id number] [place] [address]- 6993 November, [facility] [place] [facility] [address] [facility] [id number] [place] [address]- 6057 November, [facility] [place] [facility] [address] [id number] [place] [address]- 8672 30 Oct, 2011 [facility] [place] [facility] [address] [id number] [place] [address]- 5215 30 Oct, 2011 [facility] [place] [facility] [address] [id number] [place] [address]- 2146 Oct, [facility] [place] [facility] [address] [id number] [place] [address]- 4871 Sep, [facility] [place] [facility] [address] [id number] [place] [address]- 9250 Sep, [facility] [place] [facility] [address] [id number] [place] [address]- 4660 05 Sep, 2011 [facility] [place] [facility] [address] [id number] [place] [address]- 1839 Sep, [facility] [place] [facility] [address] [id number] [place] [address]- 1415 Sep, [facility] [place] [facility] [address] [id number] [place] [address]- 2049 Aug, [facility] [place] [facility] [address] [id number] [place] [address]- 9832 Aug, [facility] [place] [facility] [address] [id number] [place] [address]- 6285 Aug, [facility] [place] [facility] [address] [id number] [place] [address]- 2535 Aug, [facility] [place] [facility] [address] [id number] [place] [address]- 3034 Jul, [facility] [place] [facility] [address] [id number] [place] [address]- 4768 Jul, [facility] [place] [facility] [address] [id number] [place] [address]- 8396 Jul, [facility] [place] [facility] [address] [id number] [place] [address]- 4226 27 Jul, 2011 [facility] [place] [facility] [address] [id number] [place] [address]- 1067 18 Jul, 2011 [facility] [place] [facility] [address] [id number] [place] [address]- 2979 12 Jul, 2011 [facility] [place] [facility] [address] [id number] [place] [address]- 2798 11 Jul, 2011 [facility] [place] [facility] [address] [id number] [place] [address]- 3657 10 Jul, 2011 [facility] [place] [facility] [address] [id number] [place] [address]- 4013 16 Jun, 2011 [facility] [place] [facility] [address] [id number] [place] [address]- 6042 13 Jun, 2011 [facility] [place] [facility] [address] [id number] [place] [address]- 4118 Jun, [facility] [place] [facility] [address] [id number] [place] [address]- 1436 06 Jun, 2011 [facility] [place] [facility] [address] [id number] [place] [address]- 3723 14 May, 2011 [facility] [place] [facility] [address] [id number] [place] [address]- 3607 31 Apr, 2011 [facility] [place] [facility] [address] [id number] [place] [address]- 2660 13 Mar, 2011 [facility] [place] [facility] [address] [id number] [place] [address]- 7163 16 Dec, 2010 [facility] [place] [facility] [address] [id number] [place] [address]- 2035 10 Aug, 2010 [facility] [place] [facility] [address] [id number] [place] [address]- 1236 11 Jul, 2010 [facility] [place] [facility] [address] [id number] [place] [address]- 6783 18 Sep, 2009 [facility] [place] [facility] [address] [facility] [id number] [address]- 4536 Jul, [facility] [address] [facility] [id number] [address]- 9645 Jun, [facility] [address] [facility] [id number] [place] [address]- 0856 Jun, [facility] [address] [facility] [id number] [place] [address]- 2598 May, [facility] [address] [facility] [id number] [place] [address] Apr, [facility] [id number] [address] Apr, [facility] [address] [facility] [id number] [place] [address] Apr, [facility] [id number] [address] Feb, [facility] [id number] [address] Feb, [facility] [id number] [address] Jan, [facility] [address] [id number] [address] November, IMMUNIZATIONS No Known Immunizations SOCIAL HISTORY Never Assessed REASON FOR VISIT culture results PLAN OF CARE VITAL SIGNS MEDICATIONS Medication Instructions Dosage Frequency Start Date End Date Duration Status Clindamycin HCl 300 MG Orally four times daily 1 capsule Sep, Oct, 10 days Active RESULTS No Results PROCEDURES No Known procedures INSTRUCTIONS MEDICATIONS ADMINISTERED No Known Medications MEDICAL (GENERAL) HISTORY Type Description Date Medical History Arthritis Surgical History cholecystectomy Surgical History wisdom teeth extraction Surgical History Partial hysterectomy 2018 Hospitalization History child Hospitalization History colitis
--- OUTSIDE RECORDS SUMMARY | 2018-02-24 22:51 | XMS REPORT ---
Author Author LESLIE CELE Organization [facility] Address [address] [place] [address] Care Team Providers Care Export Clerk Name Role Phone LESLIEALBERTO REIDHANY Unavailable PROBLEMS Type Condition ICD9-CM Code GSK64-LG Code Onset Dates Condition Status SNOMED Code Problem Other chronic pain G89.29 Active 32946414 Problem Difficulty of mother performing R63.3 Active 133038968 Problem History of anxiety Z86.59 Active 380073705 Problem Menstrual migraine without status migrainosus, not intractable G43.829 Active 47027436 Problem Rheumatoid arthritis with positive rheumatoid factor, involving unspecified site M05.9 Active 540393402 Problem Insomnia, unspecified type G47.00 Active [id number] ALLERGIES No Information ENCOUNTERS Encounter Location Date Diagnosis [place] [address] [address] [id number] [place] [address] 58342- 4343 Jan, [place] [address] 8[address]- [address] Dec, [place] [address] 28276- 0087 24 Oct, 2017 Rheumatoid arthritis with positive rheumatoid factor, involving unspecified site M05.9 [place] [address] 95111- 1893 Oct, Rheumatoid arthritis with positive rheumatoid factor, involving unspecified site M05.9 [place] [address] 17976- 5436 Oct, Closed nondisplaced fracture of third metatarsal bone of right foot with routine healing, subsequent encounter S92.334D ; Closed nondisplaced fracture of second metatarsal bone of right foot with routine healing, subsequent encounter S92.324D ; Closed nondisplaced fracture of phalanx of left great toe with routine healing, unspecified phalanx, subsequent encounter S92.405D and Other chronic pain G89.29 [facility] [id number] [place] [address] 64780- 0573 17 Oct, 2017 Closed nondisplaced fracture of [...] positive rheumatoid factor, involving unspecified site M05.9 [place] [address] [place] [id number] [place] [address] 16422- 2807 Oct, [place] [id number] [place] [address] 06161- 6443 Oct, Injury of finger of right hand, initial encounter S69.91XA and Closed displaced fracture of distal phalanx of right middle finger, initial encounter S62.632A [facility] [address] [id number] [place] [address] 93842- 2519 Sep, Mastitis N61.0 and MRSA (methicillin resistant staph aureus ) culture positive Z22.322 [place] [address] [facility] [id number] [place] [address] 59050- 5859 Sep, [facility] [address] [facility] [id number] [place] [address] 16164- 5074 Sep, Difficulty of mother performing R63.3 [facility] [address] [id number], [place] [address] 6034 Sep, Acute mastitis of left breast N61.0 [facility] [address] [id number] [address] Sep, Abscess L02.91 [facility] [id number] [place] [address] 50118- 7681 Sep, [place] [address] [id number] [place] [address] 53324- 7330 Jun, [place] [address] [id number] [place] [address] 54643- 9707 Jun, care, subsequent in second trimester Z34.82 ; Placenta previa in second trimester O44.02 ; Abnormal quad screen O28.0 ; History of delivery, currently O09.219 and 24 weeks gestation of Z3A.24 [place] [address] [id number] [place] [address] 38929- 1064 May, Dental examination Z01.20 [place] [address] 14045- 1153 May, History of delivery, currently O09.219 [place] [address] [place] [address] [id number] [place] [address] 47162- 1401 May, [place] [address] [id number] [place] [address] 80890- 3834 May, 20 weeks gestation of Z3A.20 ; care, subsequent in second trimester Z34.82 ; History of delivery, currently O09.219 and Abnormal quad screen O28.0 [place] [address] [id number] [place] [address] 96429- 6816 Apr, Elevated blood sugar level R73.9 and Glucosuria R81 [place] [address] [id number] [place] [address] 16045- 3614 Apr, Elevated blood sugar level R73.9 and Glucosuria R81 [place] [address] [id number] [place] [address] 37816- 0492 Apr, Elevated blood sugar level R73.9 [place] [address] [place] [address] [id number] [place] [address] 39725- 6469 Apr, [place] [address] [id number] [place] [address] 13889- 5706 Apr, 16 weeks gestation of Z3A.16 ; care, subsequent in second trimester Z34.82 ; Encounter for immunization Z23 and Glucosuria R81 [place] [address] 12704- 8936 08 Mar, 2017 12 weeks gestation of Z3A.12 [place] [address] 54811- 5612 14 Feb, [address] 46391- 1133 Feb, care, subsequent in first trimester Z34.81 and 8 weeks gestation of Z3A.[address] 52871- 8452 Jan, [address] 66431- 1262 Jul, Encounter for test, result unknown Z32.[address] 82328- 3536 Jun, control counseling Z30.9 and Insomnia, unspecified type G47.[address] 69358- 5571 Sep, Encounter for test Z32.00 [place] [address] 97185- 9004 Jul, [address] 37966- 6831 Jul, Well woman exam Z01.419 ; Encounter for screening for malignant neoplasm of cervix Z12.4 ; Vaginal discharge N89.8 ; Routine screening for STI (sexually transmitted infection) Z11.3 ; Encounter for prescription for transdermal contraceptive Z30.49 ; Nausea with vomiting, unspecified R11.2 ; Menstrual migraine without status migrainosus, not intractable G43.829 and History of anxiety Z86.[address] 35145- 5180 Jun, Encounter for surveillance of transdermal contraceptive Z30.49 and Sauceda F48.9 [facility] [address] [address] 3807 14 Oct, 2014 [facility] [address] [id number] [address]- 0265 Oct, [facility] [id number] [place] [address] 55473- 5555 Jul, [facility] [address] [facility] [id number] [place] [address] 78250- 5795 Jul, [facility] [id number] [place] [address] 63635- 0140 Jul, [facility] [id number] [place] [address] 06006- 8045 Jul, [facility] [id number] [place] [address] 54714- 9212 Jul, [facility] [address] [place] [address] 89874- 3694 Jul, [facility] [address] [place] [address] 37665- 0911 Jun, [facility] [address], [place] [address]- 2909 Jun, [facility] [address], [place] [address]- 3021 May, [facility] [id number] [address]- 1260 May, [facility] [id number] [place] [address] 85651- 7409 May, [facility] [id number] [address]- 6790 May, [facility] [address] [place] [address] 90970- 3631 Feb, [facility] [place] [facility] [address] [id number] [place] [address]- 9947 Feb, [facility] [place] [facility] [address] [id number] [place] [address]- 1659 Feb, [facility] [place] [facility] [address] [id number] [place] [address]- 1883 Feb, [facility] [place] [facility] [address] [id number] [place] [address]- 7356 Oct, [facility] [place] [facility] [address] [id number] [place] [address]- 4409 Oct, [facility] [place] [facility] [address] [id number] [place] [address]- 5455 Sep, [facility] [place] [facility] [address] [id number] [place] [address]- 5263 Sep, [facility] [place] [facility] [address] [id number] [place] [address]- 0742 Sep, [facility] [place] [facility] [address] [id number] [place] [address]- 8177 Sep, [facility] [place] [facility] [address] [id number] [place] [address]- 7861 Aug, [facility] [place] [facility] [address] [id number] [place] [address]- 1825 Aug, [facility] [place] [facility] [address] [id number] [place] [address]- 0330 Jul, [facility] [place] [facility] [address] [id number] [place] [address]- 6312 Jul, [facility] [place] [facility] [address] [id number] [place] [address]- 4662 Jun, [facility] [place] [facility] [address] [id number] [place] [address]- 2481 Jun, [facility] [place] [facility] [address] [id number] [place] [address]- 9767 Jun, [facility] [address] [id number] [place] [address]- 9432 Jun, [facility] [place] [facility] [address] [id number] [place] [address] 2546 Jun, [facility] [address] [id number] [place] [address]- 8156 May, [facility] [place] [facility] [address] [id number] [place] [address]- 3915 May, [facility] [address] [id number] [place] [address]- 1772 May, [facility] [place] [facility] [address] [id number] [place] [address]- 9856 May, [facility] [address] [facility] [id number] [place] [address]- 8279 Apr, [facility] [address] [facility] [id number] [place] [address]- 0941 Apr, [facility] [place] [facility] [address] [facility] [id number] [place] [address]- 5539 Apr, [facility] [address] [facility] [id number] [place] [address]- 2111 Feb, [facility] [place] [facility] [address] [facility] [id number] [place] [address]- 2546 Jan, [facility] [place] [facility] [address] [facility] [id number] [place] [address]- 254 Aug, [facility] [place] [facility] [address] [id number] [place] [address]- 0046 Aug, [facility] [place] [facility] [address] [facility] [id number] [place] [address]- 2546 Aug, [facility] [place] [facility] [address] [facility] [id number] [place] [address]- 9398 Aug, [facility] [address] [id number] [place] [address]- 3952 07 Aug, 2012 [facility] [place] [facility] [address] [id number] [place] [address]- 1646 04 Aug, 2012 [facility] [address] [id number] [place] [address]- 2977 Jul, [facility] [address] [id number] [place] [address]- 9050 Jul, [facility] [address] [id number] [place] [address]- 1562 Jul, [facility] [address] [id number] [place] [address]- 9648 Jul, [facility] [address] [id number] [place] [address]- 3096 Jul, [facility] [address] [id number] [place] [address]- 6422 Jul, [facility] [address] [id number] [place] [address]- 3976 Jul, [facility] [address] [id number] [place] [address]- 6322 Jun, [facility] [address] [id number] [address]- 8468 Jun, [facility] [place] [facility] [address] [id number], [place] [address]- 6555 Jun, [facility] [place] [facility] [address] [id number] [place] [address]- 3329 Jun, [facility] [place] [facility] [address] [id number], [place] [address]- 6026 Jun, [facility] [place] [facility] [address] [id number] [place] [address]- 0156 Jun, [facility] [place] [facility] [address] [id number] [place] [address]- 7940 05 Jun, 2012 [facility] [place] [facility] [address] [id number] [place] [address]- 0995 Jun, [facility] [place] [facility] [address] [id number] [place] [address]- 8656 Jun, [facility] [place] [facility] [address] [facility] [id number] [place] [address]- 9011 Jun, [facility] [place] [facility] [address] [id number] [place] [address]- 1727 May, [facility] [place] [facility] [address] [id number] [place] [address]- 0440 May, [facility] [place] [facility] [address] [facility] [id number] [place] [address]- 6482 May, [facility] [place] [facility] [address] [facility] [id number] [place] 0865 May, [facility] [place] [facility] [address] [facility] [id number] [place] [address]- 6725 May, [facility] [place] [facility] [address] [facility] [id number] [place] [address]- 5604 Apr, [facility] [place] [facility] [address] [facility] [id number] [place] [address]- 3979 Apr, [facility] [place] [facility] [address] [facility] [id number] [place] [address]- 7559 Apr, [facility] [place] [facility] [address] [facility] [id number], [place] [address]- 2444 Apr, [facility] [place] [facility] [address] [id number] [place] [address]- 5438 Apr, [facility] [place] [facility] [address] [facility] [id number], [place] [address]- 7676 Mar, [facility] [place] [facility] [address] [facility] [id number], [place] [address]- 8325 Mar, [facility] [place] [facility] [address] [id number] [place] [address]- 9274 Mar, [facility] [place] [facility] [address] [id number] [place] [address]- 5459 Mar, [facility] [place] [facility] [address] [id number] [place] [address]- 1226 Mar, [facility] [place] [facility] [address] [id number] [place] [address]- 6723 Mar, [facility] [place] [facility] [address] [id number] [place] [address]- 8320 Feb, [facility] [place] [facility] [address] [id number] [place] [address]- 8172 Feb, [facility] [place] [facility] [address] [id number] [place] [address]- 0376 Feb, [facility] [place] [facility] [address] [id number] [place] [address]- 5125 Feb, [facility] [place] [facility] [address] [id number] [place] [address]- 6478 Feb, [facility] [place] [facility] [address] [id number] [place] [address]- 9929 Jan, [facility] [place] [facility] [address] [id number] [place] [address]- 8413 Jan, [facility] [place] [facility] [address] [id number] [place] [address]- 7607 Jan, [facility] [place] [facility] [address] [id number] [place] [address]- 6161 Jan, [facility] [place] [facility] [address] [id number] [place] [address]- 8698 Jan, [facility] [place] [facility] [address] [id number] [place] [address]- 3043 Jan, [facility] [place] [facility] [address] [id number] [place] [address]- 6362 Dec, [facility] [place] [facility] [address] [id number] [place] [address]- 7490 Dec, [facility] [place] [facility] [address] [id number] [place] [address]- 0136 Dec, [facility] [place] [facility] [address] [id number] [place] [address]- 3785 Dec, [facility] [place] [facility] [address] [id number] [place] [address]- 8458 Dec, [facility] [place] [facility] [address] [id number] [place] [address]- 9484 Dec, [facility] [place] [facility] [address] [id number] [place] [address]- 5174 Dec, [facility] [place] [facility] [address] [id number] [place] [address]- 7952 November, [facility] [place] [facility] [address] [id number] [place] [address]- 3041 November, [facility] [place] [facility] [address] [id number] [place] [address]- 3224 November, [facility] [place] [facility] [address] [id number] [place] [address]- 0220 Oct, [facility] [place] [facility] [address] [id number] [place] [address]- 9968 Oct, [facility] [place] [facility] [address] [id number] [place] [address]- 7891 Oct, [facility] [place] [facility] [address] [id number] [place] [address]- 8050 Sep, [facility] [place] [facility] [address] [id number] [place] [address]- 3434 Sep, [facility] [place] [facility] [address] [id number] [place] [address]- 5440 05 Sep, 2011 [facility] [place] [facility] [address] [id number] [place] [address]- 9780 Sep, [facility] [address] [id number] [place] [address]- 6871 Sep, [facility] [place] [facility] [address] [id number] [place] [address]- 4256 Aug, [facility] [place] [facility] [address] [id number] [place] [address]- 2736 Aug, [facility] [place] [facility] [address] [id number] [place] [address]- 4161 Aug, [facility] [place] [facility] [address] [id number] [place] [address]- 6016 Aug, [facility] [place] [facility] [address] [id number] [place] [address]- 7242 Jul, [facility] [place] [facility] [address] [id number] [place] [address]- 0385 Jul, [facility] [address] [id number] [place] [address]- 7540 Jul, [facility] [place] [facility] [address] [id number] [place] [address]- 2084 Jul, [facility] [address] [id number] [place] [address]- 8134 Jul, [facility] [place] [facility] [address] [id number] [place] [address]- 3334 Jul, [facility] [place] [facility] [address] [id number] [place] [address]- 1340 Jul, [facility] [place] [facility] [address] [id number] [place] [address]- 0445 Jul, [facility] [place] [facility] [address] [id number] [place] [address] 2546 16 Jun, 2011 [facility] [place] [facility] [address] [id number] [place] [address]- 7223 13 Jun, 2011 [facility] [place] [facility] [address] [id number] [place] [address]- 8308 12 Jun, 2011 [facility] [place] [facility] [address] [id number] [place] [address]- 0271 06 Jun, 2011 [facility] [place] [facility] [address] [id number] [place] [address]- 3777 14 May, 2011 [facility] [place] [facility] [address] [id number] [place] [address]- 0332 31 Apr, 2011 [facility] [place] [facility] [address] [id number] [place] [address]- 2361 13 Mar, 2011 [facility] [place] [facility] [address] [id number] [place] [address]- 9420 16 Dec, 2010 [facility] [place] [facility] [address] [id number] [place] [address]- 0767 10 Aug, 2010 [facility] [place] [facility] [address] [id number], [place] [address]- 4226 11 Jul, 2010 [facility] [place] [facility] [address] [id number] [place] [address]- 8056 18 Sep, 2009 [facility] [place] [facility] [address] [id number] [place] [address]- 0334 12 Jul, 2009 [facility] [place] [facility] [address] [id number], [place] [address]- 3383 14 Jun, 2009 [facility] [place] [facility] [address] [id number], [place] [address]- 7764 14 Jun, 2009 [facility] [place] [facility] [address] [id number] [place] [address] 2541 02 May, 2009 [facility] [place] [facility] [address] [id number], [place] [address]- 3941 15 Apr, 2009 [facility] [place] [facility] [address] [facility] [id number], [place] [address]- 6450 15 Apr, 2009 [facility] [place] [facility] [address] [facility] [id number] [place] [address]- 8006 Apr, [facility] [address] [facility] [id number], [place] [address]- 5966 Feb, [facility] [address] [facility] [id number], [place] [address]- 3256 Feb, [facility] [address] [facility] [id number], [place] [address]- 0924 Jan, [facility] [address] [facility] [id number], [place] [address] November, IMMUNIZATIONS No Known Immunizations SOCIAL HISTORY Never Assessed REASON FOR VISIT Lab (walk-in)-[facility] VITAL SIGNS MEDICATIONS Unknown Medications RESULTS Name Result Date Reference Range GLUCOSE AVNI 1 HOUR 2017-05-06 Gestational Diabetes Screen 82 [id number] PROCEDURES Procedure Date Ordered Result Body Site GLUCOSE TEST May 06, 2017 VENIPUNCT, ROUTINE* May 06, 2017 INSTRUCTIONS MEDICATIONS ADMINISTERED No Known Medications MEDICAL (GENERAL) HISTORY Type Description Date Medical History Arthritis Surgical History cholecystectomy Surgical History wisdom teeth extraction Surgical History hysterectomy Hospitalization History child Hospitalization History colitis
--- OUTSIDE RECORDS SUMMARY | 2018-02-24 22:52 | XMS REPORT ---
Author Author LESLIE CELE Organization [facility] Address [address] [place] [address] Care Team Providers Care Strategic Marketing Leader Name Role Phone LESLIEALBERTO REIDHANY Unavailable PROBLEMS Type Condition ICD9-CM Code VHL99-BC Code Onset Dates Condition Status SNOMED Code Problem Other chronic pain G89.29 Active 67181600 Problem Difficulty of mother performing R63.3 Active 407679694 Problem History of anxiety Z86.59 Active 243553411 Problem Menstrual migraine without status migrainosus, not intractable G43.829 Active 35725211 Problem Rheumatoid arthritis with positive rheumatoid factor, involving unspecified site M05.9 Active 854908323 Problem Insomnia, unspecified type G47.00 Active 605485050 ALLERGIES No Information ENCOUNTERS Encounter Location Date Diagnosis [facility] [id number] [place] [address] 98104- 6606 Jan, [facility] [address] 25921- 4667 Dec, [facility] [address] 77363- 3638 24 Oct, 2017 Rheumatoid arthritis with positive rheumatoid factor, involving unspecified site M05.9 [facility] [address] 70699- 5198 Oct, Rheumatoid arthritis with positive rheumatoid factor, involving unspecified site M05.9 [facility] [address] 41007- 6345 Oct, Closed nondisplaced fracture of third metatarsal bone of right foot with routine healing, subsequent encounter S92.334D ; Closed nondisplaced fracture of second metatarsal bone of right foot with routine healing, subsequent encounter S92.324D ; Closed nondisplaced fracture of phalanx of left great toe with routine healing, unspecified phalanx, subsequent encounter S92.405D and Other chronic pain G89.29 [facility] [address] [id number] [place] [address] 26462- 3904 17 Oct, 2017 Closed nondisplaced fracture of [...] factor, involving unspecified site M05.9 [facility] [id number] [place] [address] 37429- 6047 Oct, [facility] [id number] [place] [address] 38711- 5580 Oct, Injury of finger of right hand, initial encounter S69.91XA and Closed displaced fracture of distal phalanx of right middle finger, initial encounter S62.632A [facility] [address] [id number] [place] [address] 51183- 0530 Sep, Mastitis N61.0 and MRSA (methicillin resistant staph aureus ) culture positive Z22.322 [facility] [place] [address] [facility] [id number] [place] [address] 90596- 2192 Sep, [facility] [address] [facility] [id number] [place] [address] 52591- 9392 Sep, Difficulty of mother performing R63.3 [facility] [address] [id number], [place] [address] 0[address] Sep, Acute mastitis of left breast N61.0 [facility] [address] [id number], [place] [address] Sep, Abscess L02.91 [facility] [id number] [place] [address] 48541- 5984 Sep, [facility] [id number] [place] [address] 70524- 6621 Jun, [facility] [id number] [place] [address] 80520- 6742 Jun, care, subsequent in second trimester Z34.82 ; Placenta previa in second trimester O44.02 ; Abnormal quad screen O28.0 ; History of delivery, currently O09.219 and 24 weeks gestation of Z3A.24 [facility] [id number] [place] [address] 39468- 1254 May, Dental examination Z01.20 [facility] [address] 08145- 7332 May, History of delivery, currently O09.219 [facility] [id number] [place] [address] 85312- 6385 May, [facility] [id number] [place] [address] 95507- 2550 May, 20 weeks gestation of Z3A.20 ; care, subsequent in second trimester Z34.82 ; History of delivery, currently O09.219 and Abnormal quad screen O28.0 [facility] [id number] [place] [address] 32104- 2736 Apr, Elevated blood sugar level R73.9 and Glucosuria R81 [facility] [id number] [place] [address] 39057- 0114 Apr, Elevated blood sugar level R73.9 and Glucosuria R81 [facility] [id number] [place] [address] 12078- 8063 Apr, Elevated blood sugar level R73.9 [facility] [id number] [place] [address] 58746- 9267 Apr, [facility] [id number] [place] [address] 74050- 8274 Apr, 16 weeks gestation of Z3A.16 ; care, subsequent in second trimester Z34.82 ; Encounter for immunization Z23 and Glucosuria R81 [facility] [address] 84600- 7411 08 Mar, 2017 12 weeks gestation of Z3A.12 [facility] [address] 63714- 2738 14 Feb, [address] 44800- 4346 Feb, care, subsequent in first trimester Z34.81 and 8 weeks gestation of Z3A.[address] 13605- 8499 Jan, [address] 73797- 6042 Jul, Encounter for test, result unknown Z32.[address] 86471- 2600 Jun, control counseling Z30.9 and Insomnia, unspecified type G47.[address] 55066- 7400 Sep, Encounter for test Z32.00 [facility] [address] 76820- 5224 Jul, [address] 79517- 6948 Jul, Well woman exam Z01.419 ; Encounter for screening for malignant neoplasm of cervix Z12.4 ; Vaginal discharge N89.8 ; Routine screening for STI (sexually transmitted infection) Z11.3 ; Encounter for prescription for transdermal contraceptive Z30.49 ; Nausea with vomiting, unspecified R11.2 ; Menstrual migraine without status migrainosus, not intractable G43.829 and History of anxiety Z86.[address] 68247- 6713 Jun, Encounter for surveillance of transdermal contraceptive Z30.49 and Sauceda F48.9 [facility] [address] [address] 4280 14 Oct, 2014 [facility] [id number], [place] [address] 9810 Oct, [facility] [id number] [place] [address] 59371- 3089 Jul, [facility] [address] [facility] [id number] [place] [address] 10915- 4126 Jul, [facility] [id number] [place] [address] 92963- 0411 Jul, [facility] [id number] [place] [address] 24755- 6871 Jul, [facility] [id number] [place] [address] 03423- 6678 Jul, [facility] [id number] [place] [address] 60999- 8037 Jul, [facility] [id number] [place] [address] 29363- 4706 Jun, [facility] [address], [place] [address]- 4779 Jun, [facility] [address] [address]- 9106 May, [facility] [id number], [place] [address]- 7854 May, [facility] [id number] [place] [address] 30012- 0530 May, [facility] [id number] [address] 1958 May, [facility] [id number] [place] [address] 26054- 9360 Feb, [facility] [place] [facility] [address] [id number] [place] [address]- 4075 Feb, [facility] [place] [facility] [address] [id number] [place] [address]- 9515 Feb, [facility] [place] [facility] [address] [id number] [place] [address]- 5960 Feb, [facility] [place] [facility] [address] [id number] [place] [address]- 3523 Oct, [facility] [place] [facility] [address] [id number] [place] [address]- 5976 Oct, [facility] [place] [facility] [address] [id number] [place] [address]- 0234 Sep, [facility] [place] [facility] [address] [id number] [place] [address]- 0323 Sep, [facility] [place] [facility] [address] [id number] [place] [address]- 8360 Sep, [facility] [place] [facility] [address] [id number] [place] [address]- 7282 Sep, [facility] [place] [facility] [address] [id number] [place] [address]- 8249 Aug, [facility] [place] [facility] [address] [id number] [place] [address]- 3883 Aug, [facility] [place] [facility] [address] [id number] [place] [address]- 8472 Jul, [facility] [place] [facility] [address] [id number] [place] [address]- 4457 Jul, [facility] [place] [facility] [address] [id number] [place] [address]- 9313 Jun, [facility] [place] [facility] [address] [id number] [place] [address]- 8240 Jun, [facility] [place] [facility] [address] [id number] [place] [address]- 1956 Jun, [facility] [address] [id number] [place] [address]- 4528 Jun, [facility] [place] [facility] [address] [id number] [place] [address] 2546 Jun, [facility] [address] [id number] [place] [address]- 1328 May, [facility] [place] [facility] [address] [id number] [place] [address]- 2545 May, [facility] [address] [id number] [place] [address]- 4647 May, [facility] [place] [facility] [address] [id number] [place] [address]- 9126 May, [facility] [address] [facility] [id number] [place] [address]- 0716 Apr, [facility] [address] [facility] [id number] [place] [address]- 7779 Apr, [facility] [place] [facility] [address] [facility] [id number] [place] [address]- 6729 Apr, [facility] [address] [facility] [id number] [place] [address]- 7746 Feb, [facility] [place] [facility] [address] [facility] [id number] [place] [address]- 2546 Jan, [facility] [place] [facility] [address] [facility] [id number] [place] [address]- 2542 Aug, [facility] [place] [facility] [address] [id number] [place] [address]- 5776 Aug, [facility] [place] [facility] [address] [facility] [id number] [place] [address]- 2546 Aug, [facility] [place] [facility] [address] [facility] [id number] [place] [address]- 4498 Aug, [facility] [address] [id number] [place] [address]- 8567 07 Aug, 2012 [facility] [place] [facility] [address] [id number] [place] [address]- 9446 04 Aug, 2012 [facility] [address] [id number] [place] [address]- 8603 Jul, [facility] [address] [id number] [place] [address]- 0537 Jul, [facility] [address] [id number] [place] [address]- 8714 Jul, [facility] [address] [id number] [place] [address]- 9270 Jul, [facility] [address] [id number] [place] [address]- 1792 Jul, [facility] [address] [id number] [place] [address]- 3520 Jul, [facility] [address] [id number] [place] [address]- 4846 Jul, [facility] [address] [id number] [place] [address]- 3974 Jun, [facility] [address] [id number], [place] [address]- 3857 Jun, [facility] [place] [facility] [address] [id number], [place] [address]- 4376 Jun, [facility] [place] [facility] [address] [id number] [place] [address]- 9997 Jun, [facility] [place] [facility] [address] [id number], [place] [address]- 6746 Jun, [facility] [place] [facility] [address] [id number] [place] [address]- 6016 Jun, [facility] [place] [facility] [address] [id number] [place] [address]- 2822 05 Jun, 2012 [facility] [place] [facility] [address] [id number] [place] [address]- 9043 Jun, [facility] [place] [facility] [address] [id number] [place] [address]- 0186 Jun, [facility] [place] [facility] [address] [facility] [id number] [place] [address]- 2531 Jun, [facility] [place] [facility] [address] [id number] [place] [address]- 6696 May, [facility] [place] [facility] [address] [id number] [place] [address]- 9720 May, [facility] [place] [facility] [address] [facility] [id number] [place] [address]- 5248 May, [facility] [place] [facility] [address] [facility] [id number] [place] 6597 May, [facility] [place] [facility] [address] [facility] [id number] [place] [address]- 6601 May, [facility] [place] [facility] [address] [facility] [id number] [place] [address]- 4322 Apr, [facility] [place] [facility] [address] [facility] [id number] [place] [address]- 1679 Apr, [facility] [place] [facility] [address] [facility] [id number] [place] [address]- 9754 Apr, [facility] [place] [facility] [address] [facility] [id number], [place] [address]- 4148 Apr, [facility] [place] [facility] [address] [id number] [place] [address]- 1358 Apr, [facility] [place] [facility] [address] [facility] [id number], [place] [address]- 0986 Mar, [facility] [place] [facility] [address] [facility] [id number], [place] [address]- 0750 Mar, [facility] [place] [facility] [address] [id number] [place] [address]- 8120 Mar, [facility] [place] [facility] [address] [id number] [place] [address]- 6790 Mar, [facility] [place] [facility] [address] [id number] [place] [address]- 1816 Mar, [facility] [place] [facility] [address] [id number] [place] [address]- 9033 Mar, [facility] [place] [facility] [address] [id number] [place] [address]- 3142 Feb, [facility] [place] [facility] [address] [id number] [place] [address]- 1208 Feb, [facility] [place] [facility] [address] [id number] [place] [address]- 9580 Feb, [facility] [place] [facility] [address] [id number] [place] [address]- 0594 Feb, [facility] [place] [facility] [address] [id number] [place] [address]- 5143 Feb, [facility] [place] [facility] [address] [id number] [place] [address]- 8858 Jan, [facility] [place] [facility] [address] [id number] [place] [address]- 4905 Jan, [facility] [place] [facility] [address] [id number] [place] [address]- 7404 Jan, [facility] [place] [facility] [address] [id number] [place] [address]- 2522 Jan, [facility] [place] [facility] [address] [id number] [place] [address]- 2376 Jan, [facility] [place] [facility] [address] [id number] [place] [address]- 9022 Jan, [facility] [place] [facility] [address] [id number] [place] [address]- 8825 Dec, [facility] [place] [facility] [address] [id number] [place] [address]- 6517 Dec, [facility] [place] [facility] [address] [id number] [place] [address]- 1806 Dec, [facility] [place] [facility] [address] [id number] [place] [address]- 0447 Dec, [facility] [place] [facility] [address] [id number] [place] [address]- 4936 Dec, [facility] [place] [facility] [address] [id number] [place] [address]- 9794 Dec, [facility] [place] [facility] [address] [id number] [place] [address]- 1882 Dec, [facility] [place] [facility] [address] [id number] [place] [address]- 2044 November, [facility] [place] [facility] [address] [id number] [place] [address]- 1987 November, [facility] [place] [facility] [address] [id number] [place] [address]- 5651 November, [facility] [place] [facility] [address] [id number] [place] [address]- 6039 Oct, [facility] [place] [facility] [address] [id number] [place] [address]- 4486 Oct, [facility] [place] [facility] [address] [id number] [place] [address]- 9003 Oct, [facility] [place] [facility] [address] [id number] [place] [address]- 4447 Sep, [facility] [place] [facility] [address] [id number] [place] [address]- 7950 Sep, [facility] [place] [facility] [address] [id number] [place] [address]- 7023 05 Sep, 2011 [facility] [place] [facility] [address] [id number] [place] [address]- 1514 Sep, [facility] [address] [id number] [place] [address]- 9757 Sep, [facility] [place] [facility] [address] [id number] [place] [address]- 5786 Aug, [facility] [place] [facility] [address] [id number] [place] [address]- 2006 Aug, [facility] [place] [facility] [address] [id number] [place] [address]- 2555 Aug, [facility] [place] [facility] [address] [id number] [place] [address]- 9466 Aug, [facility] [place] [facility] [address] [id number] [place] [address]- 0489 Jul, [facility] [place] [facility] [address] [id number] [place] [address]- 0548 Jul, [facility] [address] [id number] [place] [address]- 6044 Jul, [facility] [place] [facility] [address] [id number] [place] [address]- 7752 Jul, [facility] [address] [id number] [place] [address]- 9114 Jul, [facility] [place] [facility] [address] [id number] [place] [address]- 2816 Jul, [facility] [place] [facility] [address] [id number] [place] [address]- 3210 Jul, [facility] [place] [facility] [address] [id number] [place] [address]- 0144 Jul, [facility] [place] [facility] [address] [id number] [place] [address] 2546 16 Jun, 2011 [facility] [place] [facility] [address] [id number] [place] [address]- 7751 13 Jun, 2011 [facility] [place] [facility] [address] [id number] [place] [address]- 4533 12 Jun, 2011 [facility] [place] [facility] [address] [id number] [place] [address]- 8091 06 Jun, 2011 [facility] [place] [facility] [address] [id number] [place] [address]- 2152 14 May, 2011 [facility] [place] [facility] [address] [id number] [place] [address]- 9053 31 Apr, 2011 [facility] [place] [facility] [address] [id number] [place] [address]- 0213 13 Mar, 2011 [facility] [place] [facility] [address] [id number] [place] [address]- 7173 16 Dec, 2010 [facility] [place] [facility] [address] [id number] [place] [address]- 8411 10 Aug, 2010 [facility] [place] [facility] [address] [id number], [place] [address]- 2542 11 Jul, 2010 [facility] [place] [facility] [address] [id number] [place] [address]- 5040 18 Sep, 2009 [facility] [place] [facility] [address] [id number] [place] [address]- 9896 12 Jul, 2009 [facility] [place] [facility] [address] [id number], [place] [address]- 4673 14 Jun, 2009 [facility] [place] [facility] [address] [id number], [place] [address]- 4476 14 Jun, 2009 [facility] [place] [facility] [address] [id number] [place] [address] 2545 02 May, 2009 [facility] [place] [facility] [address] [id number], [place] [address]- 7295 15 Apr, 2009 [facility] [place] [facility] [address] [facility] [id number], [place] [address]- 8732 15 Apr, 2009 [facility] [place] [facility] [address] [facility] [id number] [place] [address]- 3766 Apr, [facility] [address] [facility] [id number], [place] [address]- 6487 Feb, [facility] [address] [id number], [place] [address]- 7853 Feb, [facility] [address] [facility] [id number], [place] [address]- 0392 Jan, [facility] [address] [id number] [address] November, IMMUNIZATIONS No Known Immunizations SOCIAL HISTORY Never Assessed REASON FOR VISIT Future lab order PLAN OF CARE VITAL SIGNS MEDICATIONS Unknown Medications RESULTS No Results PROCEDURES No Known procedures INSTRUCTIONS MEDICATIONS ADMINISTERED No Known Medications MEDICAL (GENERAL) HISTORY Type Description Date Medical History Arthritis Surgical History cholecystectomy Surgical History wisdom teeth extraction Surgical History hysterectomy Hospitalization History child Hospitalization History colitis
--- OUTSIDE RECORDS SUMMARY | 2018-02-24 22:52 | XMS REPORT ---
Author Author LESLIE CELE Organization [facility] Address [address] [place] [address] Care Team Providers Care Photovoltaic Installation Technician Name Role Phone LESLIEALBERTO REIDHANY Unavailable PROBLEMS Type Condition ICD9-CM Code LRB86-IH Code Onset Dates Condition Status SNOMED Code Problem Other chronic pain G89.29 Active 70951696 Problem Difficulty of mother performing R63.3 Active 588924046 Problem History of anxiety Z86.59 Active 071254463 Problem Menstrual migraine without status migrainosus, not intractable G43.829 Active 93262667 Problem Rheumatoid arthritis with positive rheumatoid factor, involving unspecified site M05.9 Active 408476214 Problem Insomnia, unspecified type G47.00 Active [id number] ALLERGIES No Information ENCOUNTERS Encounter Location Date Diagnosis [place] [id number] [place] [address] 46336- 4319 Jan, [place] [address] 23114- 0895 Dec, [place] [address] 57064- 3090 24 Oct, 2017 Rheumatoid arthritis with positive rheumatoid factor, involving unspecified site M05.9 [place] [address] 65725- 4338 Oct, Rheumatoid arthritis with positive rheumatoid factor, involving unspecified site M05.9 [place] [address] 86439- 1266 Oct, Closed nondisplaced fracture of third metatarsal bone of right foot with routine healing, subsequent encounter S92.334D ; Closed nondisplaced fracture of second metatarsal bone of right foot with routine healing, subsequent encounter S92.324D ; Closed nondisplaced fracture of phalanx of left great toe with routine healing, unspecified phalanx, subsequent encounter S92.405D and Other chronic pain G89.29 [facility] [id number] [place] [address] 84167- 6212 17 Oct, 2017 Closed nondisplaced fracture of [...] positive rheumatoid factor, involving unspecified site M05.9 [place] [id number] [place] [address] 78303- 3017 Oct, [place] [id number] [place] [address] 59508- 2376 Oct, Injury of finger of right hand, initial encounter S69.91XA and Closed displaced fracture of distal phalanx of right middle finger, initial encounter S62.632A [facility] [address] [id number] [place] [address] 06362- 0213 Sep, Mastitis N61.0 and MRSA (methicillin resistant staph aureus ) culture positive Z22.322 [place] [address] [facility] [id number] [place] [address] 94203- 4515 Sep, [facility] [address] [facility] [id number] [place] [address] 20954- 2882 Sep, Difficulty of mother performing R63.3 [facility] [address] [id number] [address] 116[address] Sep, Acute mastitis of left breast N61.0 [facility] [address] [id number] [address] Sep, Abscess L02.91 [facility] [id number] [place] [address] 03814- 6843 Sep, [place] [id number] [place] [address] 80472- 4748 Jun, [place] [id number] [place] [address] 78256- 5420 Jun, care, subsequent in second trimester Z34.82 ; Placenta previa in second trimester O44.02 ; Abnormal quad screen O28.0 ; History of delivery, currently O09.219 and 24 weeks gestation of Z3A.24 [place] [id number] [place] [address] 40267- 9866 May, Dental examination Z01.20 [place] [address] 78875- 4258 May, History of delivery, currently O09.219 [place] [id number] [place] [address] 58796- 5824 May, [place] [id number] [place] [address] 77083- 8759 May, 20 weeks gestation of Z3A.20 ; care, subsequent in second trimester Z34.82 ; History of delivery, currently O09.219 and Abnormal quad screen O28.0 [place] [id number] [place] [address] 47018- 4249 Apr, Elevated blood sugar level R73.9 and Glucosuria R81 [place] [id number] [place] [address] 10554- 4974 Apr, Elevated blood sugar level R73.9 and Glucosuria R81 [place] [id number] [place] [address] 72653- 8955 Apr, Elevated blood sugar level R73.9 [place] [id number] [place] [address] 91428- 9364 Apr, [place] [id number] [place] [address] 67978- 4253 Apr, 16 weeks gestation of Z3A.16 ; care, subsequent in second trimester Z34.82 ; Encounter for immunization Z23 and Glucosuria R81 [place] [address] 34511- 5324 08 Mar, 2017 12 weeks gestation of Z3A.12 [place] [address] 70579- 4005 14 Feb, [address] 46359- 3197 Feb, care, subsequent in first trimester Z34.81 and 8 weeks gestation of Z3A.[address] 44748- 2224 Jan, [address] 33249- 6350 Jul, Encounter for test, result unknown Z32.[address] 85961- 4530 Jun, control counseling Z30.9 and Insomnia, unspecified type G47.[address] 95085- 8391 Sep, Encounter for test Z32.00 [place] [address] 99794- 6740 Jul, [address] 58947- 6896 Jul, Well woman exam Z01.419 ; Encounter for screening for malignant neoplasm of cervix Z12.4 ; Vaginal discharge N89.8 ; Routine screening for STI (sexually transmitted infection) Z11.3 ; Encounter for prescription for transdermal contraceptive Z30.49 ; Nausea with vomiting, unspecified R11.2 ; Menstrual migraine without status migrainosus, not intractable G43.829 and History of anxiety Z86.[address] 74706- 2833 Jun, Encounter for surveillance of transdermal contraceptive Z30.49 and Sauceda F48.9 [facility] [address] [address]- 1745 14 Oct, 2014 [facility] [id number] [address]- 5114 Oct, [facility] [id number] [place] [address] 86676- 5841 Jul, [facility] [address] [facility] [id number] [place] [address] 90628- 6076 Jul, [facility] [id number] [place] [address] 02364- 6983 Jul, [facility] [id number] [place] [address] 35577- 0278 Jul, [facility] [id number] [place] [address] 13599- 0239 Jul, [facility] [id number] [place] [address] 25400- 8209 Jul, [facility] [id number] [place] [address] 62427- 4412 Jun, [facility] [address] [address]- 8323 Jun, [facility] [address] [address]- 9955 May, [facility] [id number] [address]- 4586 May, [facility] [id number] [place] [address] 00745- 1202 May, [facility] [id number] [address]- 2162 May, [facility] [id number] [place] [address] 24899- 6157 Feb, [facility] [place] [facility] [address] [id number] [place] [address]- 8061 Feb, [facility] [place] [facility] [address] [id number] [place] [address]- 2224 Feb, [facility] [place] [facility] [address] [id number] [place] [address]- 3271 Feb, [facility] [place] [facility] [address] [id number] [place] [address]- 6058 Oct, [facility] [place] [facility] [address] [id number] [place] [address]- 1412 Oct, [facility] [place] [facility] [address] [id number] [place] [address]- 1301 Sep, [facility] [place] [facility] [address] [id number] [place] [address]- 3982 Sep, [facility] [place] [facility] [address] [id number] [place] [address]- 2553 Sep, [facility] [place] [facility] [address] [id number] [place] [address]- 2098 Sep, [facility] [place] [facility] [address] [id number] [place] [address]- 8508 Aug, [facility] [place] [facility] [address] [id number] [place] [address]- 3236 Aug, [facility] [place] [facility] [address] [id number] [place] [address]- 0935 Jul, [facility] [place] [facility] [address] [id number] [place] [address]- 5970 Jul, [facility] [place] [facility] [address] [id number] [place] [address]- 9782 Jun, [facility] [place] [facility] [address] [id number] [place] [address]- 5930 Jun, [facility] [place] [facility] [address] [id number] [place] [address]- 5413 Jun, [facility] [address] [id number] [place] [address]- 8585 Jun, [facility] [place] [facility] [address] [id number] [place] [address] 2546 Jun, [facility] [address] [id number] [place] [address]- 9312 May, [facility] [place] [facility] [address] [id number] [place] [address]- 8432 May, [facility] [address] [id number] [place] [address]- 1854 May, [facility] [place] [facility] [address] [id number] [place] [address]- 4356 May, [facility] [address] [facility] [id number] [place] [address]- 2598 Apr, [facility] [address] [facility] [id number] [place] [address]- 0928 Apr, [facility] [place] [facility] [address] [facility] [id number] [place] [address]- 4246 Apr, [facility] [address] [facility] [id number] [place] [address]- 0862 Feb, [facility] [place] [facility] [address] [facility] [id number] [place] [address]- 2546 Jan, [facility] [place] [facility] [address] [facility] [id number] [place] [address]- 2545 Aug, [facility] [place] [facility] [address] [id number] [place] [address]- 7086 Aug, [facility] [place] [facility] [address] [facility] [id number] [place] [address]- 2546 Aug, [facility] [place] [facility] [address] [facility] [id number] [place] [address]- 4268 Aug, [facility] [address] [id number] [place] [address]- 9089 07 Aug, 2012 [facility] [place] [facility] [address] [id number] [place] [address]- 5236 04 Aug, 2012 [facility] [address] [id number] [place] [address]- 8157 Jul, [facility] [address] [id number] [place] [address]- 0146 Jul, [facility] [address] [id number] [place] [address]- 2895 Jul, [facility] [address] [id number] [place] [address]- 0058 Jul, [facility] [address] [id number] [place] [address]- 4762 Jul, [facility] [address] [id number] [place] [address]- 3445 Jul, [facility] [address] [id number] [place] [address]- 4955 Jul, [facility] [address] [id number] [place] [address]- 1950 Jun, [facility] [address] [id number], [place] [address]- 7027 Jun, [facility] [place] [facility] [address] [id number][place] [address]- 0668 Jun, [facility] [place] [facility] [address] [id number] [place] [address]- 2975 Jun, [facility] [place] [facility] [address] [id number] [address]- 6196 Jun, [facility] [place] [facility] [address] [id number] [place] [address]- 7526 Jun, [facility] [place] [facility] [address] [id number] [place] [address]- 9140 05 Jun, 2012 [facility] [place] [facility] [address] [id number] [place] [address]- 5700 Jun, [facility] [place] [facility] [address] [id number] [place] [address]- 4446 Jun, [facility] [place] [facility] [address] [facility] [id number] [place] [address]- 0756 Jun, [facility] [place] [facility] [address] [id number] [place] [address]- 0358 May, [facility] [place] [facility] [address] [id number] [place] [address]- 8705 May, [facility] [place] [facility] [address] [facility] [id number] [place] [address]- 3282 May, [facility] [place] [facility] [address] [facility] [id number] [place] 8088 May, [facility] [place] [facility] [address] [facility] [id number] [place] [address]- 5987 May, [facility] [place] [facility] [address] [facility] [id number] [place] [address]- 6530 Apr, [facility] [place] [facility] [address] [facility] [id number] [place] [address]- 4557 Apr, [facility] [place] [facility] [address] [facility] [id number] [place] [address]- 2948 Apr, [facility] [place] [facility] [address] [facility] [id number], [place] [address]- 3187 Apr, [facility] [place] [facility] [address] [id number] [place] [address]- 4682 Apr, [facility] [place] [facility] [address] [facility] [id number], [place] [address]- 5296 Mar, [facility] [place] [facility] [address] [facility] [id number], [place] [address]- 3054 Mar, [facility] [place] [facility] [address] [id number] [place] [address]- 6280 Mar, [facility] [place] [facility] [address] [id number] [place] [address]- 8559 Mar, [facility] [place] [facility] [address] [id number] [place] [address]- 3196 Mar, [facility] [place] [facility] [address] [id number] [place] [address]- 5452 Mar, [facility] [place] [facility] [address] [id number] [place] [address]- 2568 Feb, [facility] [place] [facility] [address] [id number] [place] [address]- 0584 Feb, [facility] [place] [facility] [address] [id number] [place] [address]- 1596 Feb, [facility] [place] [facility] [address] [id number] [place] [address]- 2155 Feb, [facility] [place] [facility] [address] [id number] [place] [address]- 8562 Feb, [facility] [place] [facility] [address] [id number] [place] [address]- 7932 Jan, [facility] [place] [facility] [address] [id number] [place] [address]- 8860 Jan, [facility] [place] [facility] [address] [id number] [place] [address]- 0039 Jan, [facility] [place] [facility] [address] [id number] [place] [address]- 5654 Jan, [facility] [place] [facility] [address] [id number] [place] [address]- 8045 Jan, [facility] [place] [facility] [address] [id number] [place] [address]- 0568 Jan, [facility] [place] [facility] [address] [id number] [place] [address]- 6475 Dec, [facility] [place] [facility] [address] [id number] [place] [address]- 0088 Dec, [facility] [place] [facility] [address] [id number] [place] [address]- 9036 Dec, [facility] [place] [facility] [address] [id number] [place] [address]- 4561 Dec, [facility] [place] [facility] [address] [id number] [place] [address]- 9775 Dec, [facility] [place] [facility] [address] [id number] [place] [address]- 7055 Dec, [facility] [place] [facility] [address] [id number] [place] [address]- 4955 Dec, [facility] [place] [facility] [address] [id number] [place] [address]- 5009 November, [facility] [place] [facility] [address] [id number] [place] [address]- 1971 November, [facility] [place] [facility] [address] [id number] [place] [address]- 0307 November, [facility] [place] [facility] [address] [id number] [place] [address]- 1026 Oct, [facility] [place] [facility] [address] [id number] [place] [address]- 7381 Oct, [facility] [place] [facility] [address] [id number] [place] [address]- 5215 Oct, [facility] [place] [facility] [address] [id number] [place] [address]- 8092 Sep, [facility] [place] [facility] [address] [id number] [place] [address]- 6528 Sep, [facility] [place] [facility] [address] [id number] [place] [address]- 5787 05 Sep, 2011 [facility] [place] [facility] [address] [id number] [place] [address]- 1450 Sep, [facility] [address] [id number] [place] [address]- 0694 Sep, [facility] [place] [facility] [address] [id number] [place] [address]- 5566 Aug, [facility] [place] [facility] [address] [id number] [place] [address]- 4516 Aug, [facility] [place] [facility] [address] [id number] [place] [address]- 7768 Aug, [facility] [place] [facility] [address] [id number] [place] [address]- 1436 Aug, [facility] [place] [facility] [address] [id number] [place] [address]- 3162 Jul, [facility] [place] [facility] [address] [id number] [place] [address]- 1720 Jul, [facility] [address] [id number] [place] [address]- 1526 Jul, [facility] [place] [facility] [address] [id number] [place] [address]- 7986 Jul, [facility] [address] [id number] [place] [address]- 5451 Jul, [facility] [place] [facility] [address] [id number] [place] [address]- 2747 Jul, [facility] [place] [facility] [address] [id number] [place] [address]- 2250 Jul, [facility] [place] [facility] [address] [id number] [place] [address]- 3086 Jul, [facility] [place] [facility] [address] [id number] [place] [address] 2546 16 Jun, 2011 [facility] [place] [facility] [address] [id number] [place] [address]- 4278 13 Jun, 2011 [facility] [place] [facility] [address] [id number] [place] [address]- 1717 12 Jun, 2011 [facility] [place] [facility] [address] [id number] [place] [address]- 1704 06 Jun, 2011 [facility] [place] [facility] [address] [id number] [place] [address]- 2254 14 May, 2011 [facility] [place] [facility] [address] [id number] [place] [address]- 8538 31 Apr, 2011 [facility] [place] [facility] [address] [id number] [place] [address]- 6479 13 Mar, 2011 [facility] [place] [facility] [address] [id number] [place] [address]- 8983 16 Dec, 2010 [facility] [place] [facility] [address] [id number] [place] [address]- 8140 10 Aug, 2010 [facility] [place] [facility] [address] [id number], [place] [address]- 8791 11 Jul, 2010 [facility] [place] [facility] [address] [id number] [place] [address]- 8741 18 Sep, 2009 [facility] [place] [facility] [address] [id number] [place] [address]- 5139 12 Jul, 2009 [facility] [place] [facility] [address] [id number], [place] [address]- 7619 14 Jun, 2009 [facility] [place] [facility] [address] [id number], [place] [address]- 7790 14 Jun, 2009 [facility] [place] [facility] [address] [id number] [place] [address] 2543 02 May, 2009 [facility] [place] [facility] [address] [id number], [place] [address]- 1006 15 Apr, 2009 [facility] [place] [facility] [address] [facility] [id number], [place] [address]- 7532 15 Apr, 2009 [facility] [place] [facility] [address] [facility] [id number] [place] [address]- 2836 Apr, [facility] [address] [id number] [address] Feb, [facility] [address] [id number], [place] [address] Feb, [facility] [address] [facility] [id number][place] [address] Jan, [facility] [address] [facility] [id number] [address] November, IMMUNIZATIONS No Known Immunizations SOCIAL HISTORY Never Assessed REASON FOR VISIT PLAN OF CARE VITAL SIGNS MEDICATIONS Unknown Medications RESULTS No Results PROCEDURES No Known procedures INSTRUCTIONS MEDICATIONS ADMINISTERED No Known Medications MEDICAL (GENERAL) HISTORY Type Description Date Medical History Arthritis Surgical History cholecystectomy Surgical History wisdom teeth extraction Surgical History hysterectomy Hospitalization History child Hospitalization History colitis
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
--- NOTE | 2018-02-24 23:14 | ED Upper Extremity ---
General Stated Complaint: R HAND PAIN Source: patient, family Exam Limitations: no limitations History of Present Illness Date Seen by Provider: Feb 24, 2018 Time Seen by Provider: 23:00 Initial Comments Patient presents to ER by private conveyance with chief complaint the past several weeks she's had progressively worsening of her chronic hand pain. She has some nodules that are consistent with possible rheumatoid arthritis. She is being worked up by Dr. Nelson appropriately and has a referral in the next couple months with rheumatology. She says she is only use the Advil sparingly and feels it only has marginal relief with 1-2 tablets. She is not on any chronic NSAID she tried Mobic many years ago and ended up with some gastritis. She's not on any kind of antacids. She does not use Tylenol or topical creams. She is not on steroids or anti-rheumatologic's. Allergies and Home Medications Allergies Coded Allergies: cephalexin (Verified Allergy, Severe, RASH, Pt has received Ampicilin in the past, 08/12/17) codeine (Verified Allergy, Mild, HIVES, FLUSHING, BURNING FEELING, 08/13/17 ) Patient has received Morphine, Hydromorphone and Lortab on previous visits without issue tramadol (Verified Adverse Reaction, Unknown, VOMITING, 07/28/16) Home Medications Hydrocodone Bit/Acetaminophen 1 Tab Tab, 1 EACH PO Q6H PRN for BREAKTHROUGH PAIN Prescribed by: JAKE ROTHMAN on 12/30/17 0103 Hydrocodone/Acetaminophen 1 Each Tablet, 1 EACH PO Q6H PRN for PAIN-SEVERE Prescribed by: ELIUD GALEAS on 10/25/17 1831 Sulfamethoxazole/Trimethoprim 1 Each Tablet, 1 EACH PO BID Prescribed by: JAKE ROTHMAN on 12/14/17 2230 Patient Home Medication List Home Medication List Reviewed: Yes Constitutional: No chills, No diaphoresis EENTM: No ear discharge, No ear pain Respiratory: No cough, No short of breath Cardiovascular: No chest pain, No palpitations Gastrointestinal: No abdominal pain Genitourinary: No discharge, No dysuria : No Past Bmlwixw-Guoydh-Wdtewx Hx Patient Social History Alcohol Use: Denies Use Recreational Drug Use: No Smoking Status: Never a Smoker 2nd Hand Smoke Exposure: No Recent Foreign Travel: No Contact w/Someone Who Travel: No Recent Hopitalizations: No Immunizations Up To Date Tetanus Booster (TDap): Unknown PED Vaccines UTD: Yes Date of Influenza Vaccine: Apr 19, 2017 Seasonal Allergies Seasonal Allergies: No Past Medical History Surgeries: Yes (FINGER REPAIR W/ PIN PLACEMENT) Section, Gallbladder, Hysterectomy, Orthopedic Respiratory: No Cardiac: No Neurological: Yes Headaches /Migraines 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 Disorders: No Female 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 Disorders: Ovarian Cyst MRI ASSISTANT History: Hysterectomy Sexually Transmitted Disease: No HIV/AIDS: No Genitourinary: No Gastrointestinal: No Musculoskeletal: Yes Arthritis, Chronic Back Pain Endocrine: No HEENT: No Cancer: No Psychosocial: Yes Anxiety Integumentary: Yes ("pin in finger removed 12/12/17") Recent Skin Changes Blood Disorders: No Adverse Reaction/Blood Tranf: No Family Medical History Arthritis 19 FATHER Hypertension 19 FATHER No Pertinent Family Hx Physical Exam Vital Signs Capillary Refill : Height, Weight, BMI Height: 5'4.00" Weight: 110lbs. 0oz. 49.613990cv; 22.6 BMI Method:Stated General Appearance: WD/WN, no apparent distress HEENT: PERRL/EOMI, pharynx normal Neck: non-tender, normal inspection Cardiovascular: normal peripheral pulses, regular rate, rhythm Respiratory: no respiratory distress, no accessory muscle use Wrist: Yes nodules (on the joints), Yes pain, Yes swelling Hand: no evidence of injury, normal ROM, Bilateral, deformity (bouchards nodules on various knuckles) Progress/Results/Core Measures Results/Orders My Orders Orders - JAKE ROTHMAN Ketorolac Injection (Toradol Injection) (02/24/18 23:15) Progress Progress Note : Time: 23:11 Progress Note Stech one is to get her on an anti-inflammatory dose of NSAIDs with Tylenol as needed. We'll recommend some topical creams. She seems to be having a little bit of nerve impingement possibly consistent with carpal tunnel syndrome. She says she was on gabapentin for this in the past. More prudent to just get her inflammation under control. At this time I don't think she needs to be on steroids but we'll get her set up to go back to her primary care doctor for reevaluation. Use Naprosyn and put her on omeprazole for the next 4 weeks. We have encouraged her to start journaling her symptoms so she can tell if she is getting any relief from the interventions. Toradol 15 mg Im Departure Impression Primary Impression: Acute arthritis Disposition: 01 HOME, SELF-CARE Condition: Stable Departure-Patient Inst. Decision time for Depature: 23:13 Referrals: CELE NELSON MD (PCP/Family) Primary Care Physician Patient Instructions: Arthritis and Exercise Add. Discharge Instructions: Drink plenty of fluids and start taking omeprazole 40 mg 1 capsule a day. Start a full anti-inflammatory dose of Naprosyn 500 mg twice a day for the next 4 weeks. If you begin to have chest pain or burning in your stomach discontinue the medication and follow up with your primary care doctor. Keep your appointment with the hair cutter. Scripts Naproxen (Naprosyn) 500 Mg Tablet 500 MG PO BID for 30 Days, #60 TAB 0 Refills Prov: JAKE ROTHMAN 02/24/18 Omeprazole (Omeprazole) 40 Mg Capsule.dr 40 MG PO DAILY for 30 Days, #30 CAP 0 Refills Prov: JAKE ROTHMAN 02/24/18 Copy Copies To 1: NORMA HAGEN DO JAKE ROTHMAN Feb 24, 2018 23:14
[2018-02-24] MEDS ORDERED: KETOROLAC 30 MG/ML VIAL IVP ONE (23:15)
[2018-02-24] MEDS ORDERED: OMEP40CA36 PO (23:15)
[2018-02-24] MEDS ORDERED: KETOROLAC 30 MG/ML VIAL IM ONE (23:15)
[2018-02-24] MEDS ORDERED: NAPR-1071 PO (23:15)
[2018-02-24 23:54] VITALS: BP 134/74
== END 2018-02-24 23:55 | disposition home or self-care (01) ==
LOC: EDUNIT# 22:40 → ER 22:41
DX: M13.841 Other specified arthritis, right hand (principal); G43.909 Migraine, unspecified, not intractable, without status migrainosus; F41.9 Anxiety disorder, unspecified; Z87.448 Personal history of other diseases of urinary system; Z88.1 Allergy status to other antibiotic agents; Z88.5 Allergy status to narcotic agent; Z88.6 Allergy status to analgesic agent; Z87.19 Personal history of other diseases of the digestive system; Z87.59 Personal history of other complications of pregnancy, childbirth and the puerperium; Z90.710 Acquired absence of both cervix and uterus
CPT/HCPCS: 99284

== ENCOUNTER 2018-06-14 20:41 | Emergency (ER) | payer SELFPAY ==
[~2018-06-14] VITALS: Ht 162.6 cm; Wt 49.9 kg
[~2018-06-14 20:41] MED LIST changes: +HYDR-4226 PO; -HYDR-757 PO; +NAPR-1071 PO; +OMEP40CA36 PO
--- OUTSIDE RECORDS SUMMARY | 2018-06-14 20:47 | XMS REPORT ---
Author Author MILIND RAMIREZ [facility] Address [address] [place] [address] Care Team Providers Care Drama Professor Name Role Phone MILIND RAMIREZ Unavailable PROBLEMS Type Condition ICD9-CM Code IOC23-ZG Code Onset Dates Condition Status SNOMED Code Problem History of anxiety Z86.59 Active 762768995 Problem Menstrual migraine without status migrainosus, not intractable G43.829 Active 57078378 Problem Observation of other suspected mental condition Z03.89 Active 53161771 Problem Vaginal bleeding N93.9 Active 226681731 Problem Rheumatoid arthritis with positive rheumatoid factor, involving unspecified site M05.9 Active 444732270 Problem Insomnia, unspecified type G47.00 Active 749210662 Problem Other chronic pain G89.29 Active 04658311 Problem Difficulty of mother performing R63.3 Active [id number] ALLERGIES No Information ENCOUNTERS Encounter Location Date Diagnosis [facility] [id number] [place] [address] 68005- 0485 Jun, [facility] [address] [place] [address] Jun, [facility] [id number] [place] [address] 54598- 3993 May, [facility] [address] [place] [address] May, Observation of other suspected mental condition Z03.89 [facility] [id number] [place] [address] 09796- 7588 May, [facility] [id number] [place] [address] 05001- 4620 May, Family discord Z63.8 [facility] [id number] [place] [address] [id number] Mar, Dental examination Z01.20 [place] [id number] [place] [address] 30879- 4125 Jan, [facility] [id number] [place] [address] 71898- 4756 Jan, [facility] [id number] [place] [address] 33502- 8221 Jan, [place] [address] 05221- 0571 Jan, [facility] [id number] [place] [address] 50113- 2226 Dec, Pelvic pain R10.2 and Vaginal bleeding N93.9 [facility] [id number] [place] [address] 17389- 9226 Dec, [facility] [id number] [place] [address] 12652- 8439 Dec, [facility] [id number] [place] [address] 82560- 0489 Dec, Screening, deficiency anemia, iron Z13.0 [facility] [id number] [place] [address] 93951- 7268 Oct, Rheumatoid arthritis with positive rheumatoid factor, involving unspecified site M05.9 [facility] [id number] [place] [address] 82886- 8409 Oct, Rheumatoid arthritis with positive rheumatoid factor, involving unspecified site M05.9 [facility] [id number] [place] [address] 64852- 3506 Oct, Closed nondisplaced fracture of third metatarsal bone of right foot with routine healing, subsequent encounter S92.334D ; Closed nondisplaced fracture of second metatarsal bone of right foot with routine healing, subsequent encounter S92.324D ; Closed nondisplaced fracture of phalanx of left great toe with routine healing, unspecified phalanx, subsequent encounter S92.405D and Other chronic pain G89.29 [place] [address] [id number] [address] 2871 Oct, Closed nondisplaced fracture of third metatarsal [...] positive rheumatoid factor, involving unspecified site M05.9 [place] [id number] [place] [address] 25623- 2219 Oct, [place] [id number] [place] [address] 08453- 4586 Oct, Injury of finger of right hand, initial encounter S69.91XA and Closed displaced fracture of distal phalanx of right middle finger, initial encounter S62.632A [facility] [id number] [place] [address] 16061- 2621 Sep, Mastitis N61.0 and MRSA (methicillin resistant staph aureus ) culture positive Z22.322 [place] [id number] [place] [address] 82407- 3510 Sep, [place] [id number] [place] [address] 89355- 3548 Sep, Difficulty of mother performing R63.3 [place] [id number] [place] [address] 30987- 5541 Sep, Acute mastitis of left breast N61.0 [facility] [id number] [place] [address] 58346 -7011 Sep, Abscess L02.91 [place] [id number] [place] [address] 20055- 2799 Sep, [place] [id number] [place] [address] 88660- 6030 Jun, [facility] [id number] [place] [address] 04879- 4967 Jun, care, subsequent in second trimester Z34.82 ; Placenta previa in second trimester O44.02 ; Abnormal quad screen O28.0 ; History of delivery, currently O09.219 and 24 weeks gestation of Z3A.24 [facility] [id number] [place] [address] 20537- 4900 May, Dental examination Z01.20 [facility] [id number] [place] [address] 31557- 4631 May, History of delivery, currently O09.219 [facility] [id number] [place] [address] 71988- 3651 May, [facility] [id number] [place] [address] 87635- 3681 May, 20 weeks gestation of Z3A.20 ; care, subsequent in second trimester Z34.82 ; History of delivery, currently O09.219 and Abnormal quad screen O28.0 [place] [facility] [id number] [place] [address] 01278- 0379 Apr, Elevated blood sugar level R73.9 and Glucosuria R81 [place] [id number] [place] [address] 27032- 4891 Apr, Elevated blood sugar level R73.9 and Glucosuria R81 [place] [facility] [id number] [place] [address] 70505- 1441 Apr, Elevated blood sugar level R73.9 [facility] [id number] [place] [address] 91300- 7072 Apr, [facility] [id number] [place] [address] 92977- 1509 Apr, 16 weeks gestation of Z3A.16 ; care, subsequent in second trimester Z34.82 ; Encounter for immunization Z23 and Glucosuria R81 [place] [id number] [place] [address] 34607- 6650 08 Mar, 2017 12 weeks gestation of Z3A.12 [place] [id number] [place] [address] 30475- 6855 14 Feb, 2017 [place] [address] 23344- 4361 Feb, care, subsequent in first trimester Z34.81 and 8 weeks gestation of Z3A.08 [place] [id number] [place] [address] 76816- 4994 Jan, [place] [address] 64301- 9290 Jul, Encounter for test, result unknown Z32.[address] 74012- 3575 Jun, control counseling Z30.9 and Insomnia, unspecified type G47.00 [place] [address] 38118- 4576 Sep, Encounter for test Z32.00 [place] [address] 09099- 9914 Jul, [place] [address] 59825- 7789 Jul, Well woman exam Z01.419 ; Encounter for screening for malignant neoplasm of cervix Z12.4 ; Vaginal discharge N89.8 ; Routine screening for STI (sexually transmitted infection) Z11.3 ; Encounter for prescription for transdermal contraceptive Z30.49 ; Nausea with vomiting, unspecified R11.2 ; Menstrual migraine without status migrainosus, not intractable G43.829 and History of anxiety Z86.59 [place] [id number] [place] [address] 00339- 7077 Jun, Encounter for surveillance of transdermal contraceptive Z30.49 and Sauceda F48.9 [facility] [place] [facility] [address] [id number] [place] [address]- 8414 14 Oct, 2014 [facility] [place] [facility] [address] [id number] [place] [address]- 3236 Oct, [facility] [place] [facility] [address] [id number] [place] [address]- 7384 Jul, [facility] [place] [facility] [address] [id number] [place] [address]- 1987 Jul, [facility] [place] [facility] [address] [id number] [place] [address]- 7429 Jul, [facility] [place] [facility] [address] [id number] [place] [address]- 4377 Jul, [facility] [place] [facility] [address] [id number] [place] [address]- 6319 Jul, [facility] [place] [facility] [address] [id number] [place] [address]- 7736 Jul, [facility] [place] [facility] [address] [id number] [place] [address]- 3547 Jun, [facility] [place] [facility] [address] [id number] [place] [address]- 6383 Jun, [facility] [place] [facility] [address] [id number] [place] [address]- 7948 May, [facility] [place] [facility] [address] [id number] [place] [address]- 0257 May, [facility] [place] [facility] [address] [id number] [place] [address]- 0782 May, [facility] [place] [facility] [address] [id number] [place] [address]- 8366 May, [facility] [place] [facility] [address] [id number] [place] [address]- 5966 Feb, [facility] [place] [facility] [address] [id number] [place] [address]- 0602 Feb, [facility] [place] [facility] [address] [id number] [place] [address]- 3313 Feb, [facility] [place] [facility] [address] [id number] [place] [address]- 0529 Feb, [facility] [place] [facility] [address] [id number] [place] [address]- 8546 Oct, [facility] [place] [facility] [address] [id number] [place] [address]- 6124 Oct, [facility] [place] [facility] [address] [id number] [place] [address]- 2596 Sep, [facility] [place] [facility] [address] [id number] [place] [address]- 0103 Sep, [facility] [place] [facility] [address] [id number] [place] [address]- 9938 Sep, [facility] [place] [facility] [address] [id number] [place] [address]- 8907 Sep, [facility] [place] [facility] [address] [id number] [place] [address]- 3800 Aug, [facility] [place] [facility] [address] [id number] [place] [address]- 6606 Aug, [facility] [place] [facility] [address] [id number] [place] [address]- 0373 Jul, [facility] [place] [facility] [address] [id number] [place] [address]- 6236 Jul, [facility] [place] [facility] [address] [id number] [place] [address]- 1859 Jun, [facility] [place] [facility] [address] [id number] [place] [address]- 5026 Jun, [facility] [place] [facility] [address] [id number] [place] [address]- 0346 Jun, [facility] [place] [facility] [address] [id number] [place] [address] 2546 Jun, [facility] [address] [id number] [place] [address]- 6775 Jun, [facility] [place] [facility] [address] [id number] [place] [address]- 4194 May, [facility] [place] [facility] [address] [id number] [place] [address]- 9250 May, [facility] [place] [facility] [address] [id number] [place] [address]- 3491 May, [facility] [place] [facility] [address] [id number] [place] [address]- 3002 May, [facility] [place] [facility] [address] [facility] [id number] [place] [address]- 0263 Apr, [facility] [place] [facility] [address] [facility] [id number] [place] [address]- 8880 Apr, [facility] [place] [facility] [address] [facility] [id number] [place] [address]- 5026 Apr, [facility] [place] [facility] [address] [facility] [id number] [place] [address]- 3117 Feb, [facility] [place] [facility] [address] [facility] [id number] [place] [address]- 0797 Jan, [facility] [place] [facility] [address] [id number] [place] [address]- 5056 Aug, [facility] [place] [facility] [address] [id number] [place] [address]- 2546 Aug, [facility] [place] [facility] [address] [id number] [place] [address]- 4456 Aug, [facility] [place] [facility] [address] [facility] [id number] [place] [address]- 2546 08 Aug, 2012 [facility] [place] [facility] [address] [facility] [id number] [place] [address]- 2548 07 Aug, 2012 [facility] [address] [id number] [place] [address]- 5021 04 Aug, 2012 [facility] [address] [id number] [place] [address]- 3756 Jul, [facility] [address] [id number] [place] [address]- 4654 Jul, [facility] [address] [id number] [place] [address]- 9340 Jul, [facility] [address] [id number] [place] [address]- 7414 Jul, [facility] [address] [id number] [place] [address]- 0832 Jul, [facility] [address] [id number] [place] [address]- 6256 Jul, [facility] [address] [id number] [place] [address]- 8696 Jul, [facility] [address] [id number] [place] [address]- 5255 Jun, [facility] [place] [facility] [address] [id number] [place] [address]- 4640 Jun, [facility] [address] [id number], [place] [address]- 7871 Jun, [facility] [place] [facility] [address] [id number], [place] [address]- 9560 Jun, [facility] [place] [facility] [address] [id number] [place] [address]- 0687 Jun, [facility] [place] [facility] [address] [id number], [place] [address]- 4166 Jun, [facility] [place] [facility] [address] [id number] [place] [address]- 0593 Jun, [facility] [place] [facility] [address] [id number] [place] [address]- 8054 Jun, [facility] [place] [facility] [address] [id number] [place] [address]- 2633 Jun, [facility] [place] [facility] [address] [id number] [place] [address]- 8456 Jun, [facility] [place] [facility] [address] [id number] [place] [address]- 8239 May, [facility] [place] [facility] [address] [id number] [place] [address]- 3151 May, [facility] [place] [facility] [address] [id number] [place] [address]- 3490 May, [facility] [place] [facility] [address] [facility] [id number] [place] [address]- 1193 May, [facility] [place] [facility] [address] [facility] [id number] [place] [address]- 8824 May, [facility] [place] [facility] [address] [id number] [place] [address]- 2373 Apr, [facility] [place] [facility] [address] [facility] [id number] [place] 1412 Apr, [facility] [place] [facility] [address] [facility] [id number], [place] [address]- 1839 Apr, [facility] [place] [facility] [address] [facility] [id number] [place] [address]- 8646 Apr, [facility] [place] [facility] [address] [facility] [id number], [place] [address]- 3461 Apr, [facility] [place] [facility] [address] [id number] [place] [address]- 8849 Mar, [facility] [place] [facility] [address] [facility] [id number] [place] [address]- 9046 20 Mar, 2012 [facility] [place] [facility] [address] [id number], [place] [address]- 5086 12 Mar, 2012 [facility] [place] [facility] [address] [id number] [place] [address]- 7693 07 Mar, 2012 [facility] [place] [facility] [address] [id number] [place] [address]- 3506 Mar, [facility] [place] [facility] [address] [id number] [place] [address]- 6125 Mar, [facility] [place] [facility] [address] [id number] [place] [address]- 9359 Feb, [facility] [place] [facility] [address] [id number] [place] [address]- 1172 Feb, [facility] [place] [facility] [address] [id number] [place] [address]- 8410 Feb, [facility] [place] [facility] [address] [id number] [place] [address]- 6369 Feb, [facility] [place] [facility] [address] [id number] [place] [address]- 9422 Feb, [facility] [place] [facility] [address] [id number] [place] [address]- 0977 Jan, [facility] [place] [facility] [address] [id number] [place] [address]- 9533 Jan, [facility] [place] [facility] [address] [id number] [place] [address]- 3897 Jan, [facility] [place] [facility] [address] [id number] [place] [address]- 9293 Jan, [facility] [place] [facility] [address] [id number] [place] [address]- 8336 Jan, [facility] [place] [facility] [address] [id number] [place] [address]- 3501 Jan, [facility] [place] [facility] [address] [id number] [place] [address]- 9787 Dec, [facility] [place] [facility] [address] [id number] [place] [address]- 2203 Dec, [facility] [place] [facility] [address] [id number] [place] [address]- 1952 Dec, [facility] [place] [facility] [address] [id number] [place] 5666 Dec, [facility] [place] [facility] [address] [id number] [place] [address]- 1218 Dec, [facility] [place] [facility] [address] [id number] [place] [address]- 0055 Dec, [facility] [place] [facility] [address] [id number] [place] [address]- 1319 Dec, [facility] [place] [facility] [address] [id number] [place] [address]- 7228 November, [facility] [place] [facility] [address] [id number] [place] [address]- 6263 November, [facility] [place] [facility] [address] [id number] [place] [address]- 2455 November, [facility] [place] [facility] [address] [id number] [place] [address]- 7431 Oct, [facility] [place] [facility] [address] [id number] [place] [address]- 4973 Oct, [facility] [place] [facility] [address] [id number] [place] [address]- 5783 Oct, [facility] [place] [facility] [address] [id number] [place] [address]- 8342 Sep, [facility] [place] [facility] [address] [id number] [place] [address]- 3103 Sep, [facility] [place] [facility] [address] [id number] [place] [address]- 4657 05 Sep, 2011 [facility] [place] [facility] [address] [id number] [place] [address]- 5180 Sep, [facility] [place] [facility] [address] [id number] [place] [address]- 6977 Sep, [facility] [address] [id number] [place] [address]- 4846 Aug, [facility] [place] [facility] [address] [id number] [place] [address]- 0986 12 Aug, 2011 [facility] [address] [id number] [place] [address]- 0936 Aug, [facility] [place] [facility] [address] [id number] [place] [address] 2546 Aug, [facility] [address] [id number] [place] [address]- 1594 30 Jul, 2011 [facility] [address] [id number] [place] [address]- 9162 Jul, [facility] [address] [id number] [place] [address]- 2109 Jul, [facility] [address] [id number] [place] [address]- 3715 Jul, [facility] [address] [id number] [place] [address]- 1168 Jul, [facility] [address] [id number] [place] [address]- 6026 Jul, [facility] [address] [id number] [place] [address]- 5417 Jul, [facility] [address] [id number] [place] [address]- 3125 10 Jul, 2011 [facility] [place] [facility] [address] [id number] [place] [address]- 9126 16 Jun, 2011 [facility] [place] [facility] [address] [id number] [place] [address] 2546 13 Jun, 2011 [facility] [place] [facility] [address] [id number] [place] [address]- 3152 12 Jun, 2011 [facility] [place] [facility] [address] [id number] [place] [address] 06 Jun, 2011 [facility] [place] [facility] [address] [id number] [place] [address] 14 May, 2011 [facility] [place] [facility] [address] [facility] [id number] [place] [address] 31 Apr, 2011 [facility] [place] [facility] [address] [id number] [place] [address] 13 Mar, 2011 [facility] [place] [facility] [address] [id number] [place] [address] 16 Dec, 2010 [facility] [place] [facility] [address] [id number] [place] [address] 10 Aug, 2010 [facility] [place] [facility] [address] [id number] [place] [address] 11 Jul, 2010 [facility] [place] [facility] [address] [id number], [place] [address] 18 Sep, 2009 [facility] [place] [facility] [address] [id number], [place] [address] 12 Jul, 2009 [facility] [place] [facility] [address] [facility] [id number], [place] [address] 14 Jun, 2009 [facility] [place] [facility] [address] [id number], [place] [address] 14 Jun, 2009 [facility] [place] [facility] [address] [id number], [place] [address] 02 May, 2009 [facility] [place] [facility] [address] [id number], [place] [address] 15 Apr, 2009 [facility] [place] [facility] [address] [id number], [place] [address] 15 Apr, 2009 [facility] [place] [facility] [address] [facility] [id number], [place] [address] 12 Apr, 2009 [facility] [place] [facility] [address] [facility] [id number] [place] [address] Feb, [facility] [address] [facility] [id number][place] [id number] Feb, [facility] [address] [facility] [id number][place] [id number] Jan, [facility] [address] [facility] [id number], [place] [address] November, IMMUNIZATIONS No Known Immunizations SOCIAL HISTORY Never Assessed REASON FOR VISIT Reschedule appt PLAN OF CARE VITAL SIGNS MEDICATIONS Unknown Medications RESULTS No Results PROCEDURES No Known procedures INSTRUCTIONS MEDICATIONS ADMINISTERED No Known Medications MEDICAL (GENERAL) HISTORY Type Description Date Medical History Arthritis Surgical History cholecystectomy Surgical History wisdom teeth extraction Surgical History Partial hysterectomy 2018 Hospitalization History child Hospitalization History colitis
--- OUTSIDE RECORDS SUMMARY | 2018-06-14 20:48 | XMS REPORT ---
Author Author NORMA HAGEN [facility] Address [address] [place] [address] Care Team Providers Care Milker Machine Name Role Phone XIAONORMA Unavailable PROBLEMS Type Condition ICD9-CM Code CAK80-SP Code Onset Dates Condition Status SNOMED Code Problem History of anxiety Z86.59 Active 788875409 Problem Menstrual migraine without status migrainosus, not intractable G43.829 Active 44833487 Problem Observation of other suspected mental condition Z03.89 Active 02409553 Problem Vaginal bleeding N93.9 Active 107425367 Problem Rheumatoid arthritis with positive rheumatoid factor, involving unspecified site M05.9 Active 263276863 Problem Insomnia, unspecified type G47.00 Active 821628156 Problem Other chronic pain G89.29 Active 55853554 Problem Difficulty of mother performing R63.3 Active [id number] ALLERGIES No Information ENCOUNTERS Encounter Location Date Diagnosis [facility] [address] [address] 14 Jun, 2018 [facility] [address] [place] [address] 16 May, [address] [facility] [address] [place] [address] 07 May, 2018 Observation of other suspected mental condition Z03.89 [facility] [id number] [place] [address] 37009- 2950 May, [facility] [id number] [place] [address] 10745- 2637 May, Family discord Z63.8 [facility] [address] [id number] Mar, Dental examination Z01.20 [facility] [id number] [place] [address] 00105- 1900 Jan, [place] [address] [address] Jan, [facility] [id number] [place] [address] 86367- 7201 Jan, [facility] [id number] [place] [address] 81670- 9708 Jan, [place] [id number] [place] [address] 33583- 9209 Dec, Pelvic pain R10.2 and Vaginal bleeding N93.9 [place] [id number] [place] [address] 67227- 6138 Dec, [place] [id number] [place] [address] 20568- 2371 Dec, [place] [id number] [place] [address] 00805- 2896 Dec, Screening, deficiency anemia, iron Z13.0 [place] [id number] [place] [address] 14497- 3344 Oct, Rheumatoid arthritis with positive rheumatoid factor, involving unspecified site M05.9 [place] [id number] [place] [address] 64366- 3631 Oct, Rheumatoid arthritis with positive rheumatoid factor, involving unspecified site M05.9 [place] [id number] [place] [address] 40510- 1784 Oct, Closed nondisplaced fracture of third metatarsal bone of right foot with routine healing, subsequent encounter S92.334D ; Closed nondisplaced fracture of second metatarsal bone of right foot with routine healing, subsequent encounter S92.324D ; Closed nondisplaced fracture of phalanx of left great toe with routine healing, unspecified phalanx, subsequent encounter S92.405D and Other chronic pain G89.29 [place] [address] [address]266 Oct, Closed nondisplaced fracture of third metatarsal [...] positive rheumatoid factor, involving unspecified site M05.9 [facility] [address] [id number] [address] 9[address] 16 Oct, 2017 [place] [address] [facility] [id number] [place] [address] 11836- 2442 Oct, Injury of finger of right hand, initial encounter S69.91XA and Closed displaced fracture of distal phalanx of right middle finger, initial encounter S62.632A [place] [address] [address] 2807 Sep, Mastitis N61.0 and MRSA (methicillin resistant staph aureus ) culture positive Z22.322 [place] [address] [facility] [id number] [address] 8[address] Sep, [facility] [address] [id number] [place] [address] 43988- 2280 Sep, Difficulty of mother performing R63.3 [facility] [address] [facility] [id number] [place] [address] 4089 Sep, Acute mastitis of left breast N61.0 [facility] [address] [id number] [address] Sep, Abscess L02.91 [facility] [id number] [place] [address] 59919- 8756 Sep, [facility] [address] [facility] [id number] [place] [address] 20241- 4311 Jun, [facility] [id number] [place] [address] 85859- 4083 Jun, care, subsequent in second trimester Z34.82 ; Placenta previa in second trimester O44.02 ; Abnormal quad screen O28.0 ; History of delivery, currently O09.219 and 24 weeks gestation of Z3A.24 [place] [id number] [place] [address] 94853- 1942 May, Dental examination Z01.20 [place] [address] 9[address]64- 8580 May, History of delivery, currently O09.219 [place] [address] 80575- 8841 May, [place] [address] 12013- 6435 May, 20 weeks gestation of Z3A.20 ; care, subsequent in second trimester Z34.82 ; History of delivery, currently O09.219 and Abnormal quad screen O28.0 [place] [id number] [place] [address] 93219- 4633 Apr, Elevated blood sugar level R73.9 and Glucosuria R81 [place] [address] 88868- 9756 Apr, Elevated blood sugar level R73.9 and Glucosuria R81 [place] [id number] [place] [address] 61478- 8227 Apr, Elevated blood sugar level R73.9 [place] [id number] [place] [address] 52133- 3224 Apr, [place] [address] 14696- 7540 Apr, 16 weeks gestation of Z3A.16 ; care, subsequent in second trimester Z34.82 ; Encounter for immunization Z23 and Glucosuria R81 [place] [address] 50231- 5490 Mar, 12 weeks gestation of Z3A.12 [place] [id number] [place] [address] 90606- 1935 Feb, [place] [id number] [place] [address] 95535- 2871 Feb, care, subsequent in first trimester Z34.81 and 8 weeks gestation of Z3A.08 [place] [address] 85515- 4333 Jan, [place] [id number] [place] [address] 27628- 4815 Jul, Encounter for test, result unknown Z32.[address] [address]- 2383 Jun, control counseling Z30.9 and Insomnia, unspecified type G47.[address] 17513- 4097 Sep, Encounter for test Z32.00 [place] [address] 21107- 6940 Jul, [address] 83871- 4566 Jul, Well woman exam Z01.419 ; Encounter for screening for malignant neoplasm of cervix Z12.4 ; Vaginal discharge N89.8 ; Routine screening for STI (sexually transmitted infection) Z11.3 ; Encounter for prescription for transdermal contraceptive Z30.49 ; Nausea with vomiting, unspecified R11.2 ; Menstrual migraine without status migrainosus, not intractable G43.829 and History of anxiety Z86.[address] 40563- 2453 Jun, Encounter for surveillance of transdermal contraceptive Z30.49 and Sauceda F48.[address] [address]27- 2500 Oct, [address] [id number] [place] [address]- 0308 Oct, [facility] [place] [facility] [address] [id number] [place] [address]- 5316 Jul, [facility] [place] [facility] [address] [id number] [place] [address]- 0856 Jul, [facility] [place] [facility] [address] [id number] [place] [address]- 2540 Jul, [facility] [place] [facility] [address] [id number] [place] [address]- 7712 Jul, [facility] [place] [facility] [address] [id number] [place] [address]- 9461 Jul, [facility] [place] [facility] [address] [id number] [place] [address]- 9010 Jul, [facility] [place] [facility] [address] [id number] [place] [address]- 0539 Jun, [facility] [place] [facility] [address] [id number] [place] [address]- 6972 Jun, [facility] [place] [facility] [address] [id number] [place] [address]- 1406 May, [facility] [place] [facility] [address] [id number] [place] [address]- 9675 May, [facility] [place] [facility] [address] [id number] [place] [address]- 3217 May, [facility] [place] [facility] [address] [id number] [place] [address]- 9529 May, [facility] [place] [facility] [address] [id number] [place] [address]- 5900 Feb, [facility] [place] [facility] [address] [id number] [place] [address]- 8256 Feb, [facility] [place] [facility] [address] [id number] [place] [address]- 9559 Feb, [facility] [place] [facility] [address] [id number] [place] [address]- 0686 Feb, [facility] [place] [facility] [address] [id number] [place] [address]- 8776 Oct, [facility] [place] [facility] [address] [id number] [place] [address]- 4537 Oct, [facility] [place] [facility] [address] [id number] [place] [address]- 6147 Sep, [facility] [place] [facility] [address] [id number] [place] [address]- 0235 Sep, [facility] [place] [facility] [address] [id number] [place] [address]- 9491 Sep, [facility] [place] [facility] [address] [id number] [place] [address]- 1196 Sep, [facility] [place] [facility] [address] [id number] [place] [address]- 5250 Aug, [facility] [place] [facility] [address] [id number] [place] [address]- 1916 Aug, [facility] [place] [facility] [address] [id number] [place] [address]- 5163 Jul, [facility] [place] [facility] [address] [id number] [place] [address]- 0058 Jul, [facility] [place] [facility] [address] [id number] [place] [address]- 2723 Jun, [facility] [place] [facility] [address] [id number] [place] [address]- 0838 Jun, [facility] [place] [facility] [address] [id number] [place] [address]- 2684 Jun, [facility] [place] [facility] [address] [id number] [place] [address]- 2174 Jun, [facility] [place] [facility] [address] [id number] [place] [address]- 5298 Jun, [facility] [place] [facility] [address] [id number] [place] [address]- 7569 May, [facility] [place] [facility] [address] [id number] [place] [address]- 2655 May, [facility] [place] [facility] [address] [facility] [id number] [place] [address]- 9299 May, [facility] [place] [facility] [address] [id number] [place] [address]- 5524 May, [facility] [place] [facility] [address] [id number] [place] [address]- 9204 Apr, [facility] [place] [facility] [address] [facility] [id number] [place] [address]- 3774 Apr, [facility] [place] [facility] [address] [facility] [id number] [place] [address]- 5958 Apr, [facility] [place] [facility] [address] [facility] [id number] [place] [address]- 8259 Feb, [facility] [place] [facility] [address] [facility] [id number] [place] [address]- 7076 Jan, [facility] [place] [facility] [address] [facility] [id number] [place] [address]- 3502 Aug, [facility] [place] [facility] [address] [facility] [id number] [place] [address]- 8206 Aug, [facility] [place] [facility] [address] [facility] [id number] [place] [address]- 9013 12 Aug, 2012 [facility] [place] [facility] [address] [facility] [id number] [place] [address]- 5781 08 Aug, 2012 [facility] [place] [facility] [address] [facility] [id number] [place] [address]- 2546 07 Aug, 2012 [facility] [place] [facility] [address] [facility] [id number] [place] [address]- 9997 Aug, [facility] [address] [id number] [place] [address]- 9865 Jul, [facility] [address] [id number] [place] [address]- 1950 Jul, [facility] [address] [id number] [place] [address]- 5929 Jul, [facility] [place] [facility] [address] [id number] [place] [address]- 1349 Jul, [facility] [address] [id number] [place] [address]- 6185 Jul, [facility] [address] [id number] [place] [address]- 5232 Jul, [facility] [address] [id number] [place] [address]- 2598 Jul, [facility] [address] [id number] [place] [address]- 3378 Jun, [facility] [address] [id number] [place] [address]- 9243 Jun, [facility] [address] [id number] [address]- 2822 Jun, [facility] [place] [facility] [address] [id number] [place] [address]- 0891 Jun, [facility] [place] [facility] [address] [id number] [place] [address]- 7885 Jun, [facility] [place] [facility] [address] [id number] [place] [address]- 3736 Jun, [facility] [place] [facility] [address] [id number] [place] [address]- 0667 Jun, [facility] [place] [facility] [address] [id number] [place] [address]- 4157 Jun, [facility] [place] [facility] [address] [id number] [place] [address]- 5325 Jun, [facility] [place] [facility] [address] [id number] [place] [address]- 9667 Jun, [facility] [place] [facility] [address] [id number] [place] [address]- 6117 May, [facility] [place] [facility] [address] [id number] [place] [address]- 8230 May, [facility] [place] [facility] [address] [id number] [place] [address]- 9417 May, [facility] [place] [facility] [address] [id number] [place] [address]- 1293 May, [facility] [place] [facility] [address] [id number] [place] [address]- 5143 May, [facility] [place] [facility] [address] [facility] [id number] [place] [address]- 1729 Apr, [facility] [place] [facility] [address] [id number] [place] [address]- 8335 Apr, [facility] [place] [facility] [address] [id number] [place] [address]- 0914 Apr, [facility] [place] [facility] [address] [facility] [id number] [place] [address]- 3037 Apr, [facility] [place] [facility] [address] [id number] [place] [address]- 1479 Apr, [facility] [place] [facility] [address] [id number] [place] [address]- 7171 25 Mar, 2012 [facility] [place] [facility] [address] [id number] [place] [address]- 8699 20 Sep2011 [facility] [place] [facility] [address] [facility] [id number] [place] [address]- 9446 12 Mar, 2012 [facility] [place] [facility] [address] [facility] [id number] [place] [address]- 2935 07 Sep2011 [facility] [place] [facility] [address] [id number] [place] [address]- 5008 Mar, [facility] [place] [facility] [address] [id number] [place] [address]- 4032 Mar, [facility] [place] [facility] [address] [id number] [place] [address]- 4788 Feb, [facility] [place] [facility] [address] [id number] [place] [address]- 8942 Feb, [facility] [place] [facility] [address] [id number] [place] [address]- 5806 Feb, [facility] [place] [facility] [address] [id number] [place] [address]- 7384 Feb, [facility] [place] [facility] [address] [id number] [place] [address]- 0047 Feb, [facility] [place] [facility] [address] [id number] [place] [address]- 5428 Jan, [facility] [place] [facility] [address] [id number] [place] [address]- 3438 Jan, [facility] [place] [facility] [address] [id number] [place] [address]- 9665 Jan, [facility] [place] [facility] [address] [id number] [place] [address]- 0571 Jan, [facility] [place] [facility] [address] [id number] [place] [address]- 7022 Jan, [facility] [place] [facility] [address] [id number] [place] [address]- 5993 Jan, [facility] [place] [facility] [address] [id number] [place] [address]- 1363 Dec, [facility] [place] [facility] [address] [id number] [place] [address]- 2917 Dec, [facility] [place] [facility] [address] [id number] [place] [address]- 7108 Dec, [facility] [place] [facility] [address] [id number] [place] [address]- 5489 Dec, [facility] [place] [facility] [address] [id number] [place] [address]- 8406 Dec, [facility] [place] [facility] [address] [id number] [place] [address]- 5134 Dec, [facility] [place] [facility] [address] [id number] [place] [address]- 5538 Dec, [facility] [place] [facility] [address] [id number] [place] [address]- 2039 November, [facility] [place] [facility] [address] [id number] [place] [address]- 5354 November, [facility] [place] [facility] [address] [id number] [place] [address]- 2347 November, [facility] [place] [facility] [address] [id number] [place] [address]- 9338 Oct, [facility] [place] [facility] [address] [id number] [place] [address]- 0762 Oct, [facility] [place] [facility] [address] [id number] [place] [address]- 8412 Oct, [facility] [place] [facility] [address] [id number] [place] [address]- 8046 Sep, [facility] [place] [facility] [address] [id number] [place] [address]- 5229 Sep, [facility] [place] [facility] [address] [id number] [place] [address]- 5128 Sep, [facility] [place] [facility] [address] [id number] [place] [address]- 6816 Sep, [facility] [place] [facility] [address] [id number] [place] [address]- 2797 Sep, [facility] [place] [facility] [address] [id number] [place] [address]- 3505 Aug, [facility] [address] [id number] [place] [address]- 3176 Aug, [facility] [place] [facility] [address] [id number] [place] [address]- 3406 10 Aug, 2011 [facility] [address] [id number] [place] [address]- 2446 03 Aug, 2011 [facility] [address] [id number] [place] [address]- 5633 30 Jul, 2011 [facility] [address] [id number] [place] [address]- 5324 Jul, [facility] [address] [id number] [place] [address]- 4077 Jul, [facility] [address] [id number] [place] [address]- 4016 Jul, [facility] [address] [id number] [place] [address]- 1702 Jul, [facility] [address] [id number] [place] [address]- 7281 Jul, [facility] [address] [id number] [place] [address]- 9392 Jul, [facility] [address] [id number] [place] [address]- 1026 Jul, [facility] [address] [id number] [place] [address]- 6776 16 Jun, 2011 [facility] [place] [facility] [address] [id number] [place] [address]- 0406 13 Jun, [address] [facility] [place] [facility] [address] [id number] [place] [address]- 9846 Jun, [facility] [place] [facility] [address] [id number] [place] [address]- 9331 06 Jun, 2011 [facility] [place] [facility] [address] [id number] [place] [address]- 4212 14 May, 2011 [facility] [place] [facility] [address] [id number] [place] [address]- 8702 31 Apr, 2011 [facility] [place] [facility] [address] [id number] [place] [address]- 0591 13 Mar, 2011 [facility] [place] [facility] [address] [id number] [place] [address]- 2288 16 Dec, 2010 [facility] [place] [facility] [address] [id number] [place] [address] 10 Aug, 2010 [facility] [place] [facility] [address] [id number] [place] [address] 11 Jul, 2010 [facility] [place] [facility] [address] [id number] [place] [address] 18 Sep, 2009 [facility] [place] [facility] [address] [id number] [place] [address] 12 Jul, 2009 [facility] [place] [facility] [address] [id number] [place] [address] 14 Jun, 2009 [facility] [place] [facility] [address] [id number] [place] [address] 14 Jun, 2009 [facility] [place] [facility] [address] [id number] [place] [address] 02 May, 2009 [facility] [place] [facility] [address] [id number] [place] [address] 15 Apr, 2009 [facility] [place] [facility] [address] [id number] [place] [address] 15 Apr, 2009 [facility] [place] [facility] [address] [id number] [place] [address] 12 Apr, 2009 [facility] [place] [facility] [address] [id number] [place] [address] 17 Feb, 2009 [facility] [place] [facility] [address] [facility] [id number] [place] [address] Feb, [facility] [address] [facility] [id number] [place] [address] Jan, [facility] [address] [facility] [id number] [place] [address] November, IMMUNIZATIONS No Known Immunizations SOCIAL HISTORY Never Assessed REASON FOR VISIT ats brief PLAN OF CARE VITAL SIGNS MEDICATIONS Unknown Medications RESULTS No Results PROCEDURES Procedure Date Ordered Result Body Site Alcohol and/or drug services May 20, 2018 INSTRUCTIONS MEDICATIONS ADMINISTERED No Known Medications MEDICAL (GENERAL) HISTORY Type Description Date Medical History Arthritis Surgical History cholecystectomy Surgical History wisdom teeth extraction Surgical History Partial hysterectomy 2018 Hospitalization History child Hospitalization History colitis
--- OUTSIDE RECORDS SUMMARY | 2018-06-14 20:48 | XMS REPORT ---
Author Author MILIND RAMIREZ [facility] Address [address] [place] [address] Care Team Providers [facility] Worker Name Role Phone MILIND RAMIREZ Unavailable PROBLEMS Type Condition ICD9-CM Code FCH10-RO Code Onset Dates Condition Status SNOMED Code Problem History of anxiety Z86.59 Active 982999559 Problem Menstrual migraine without status migrainosus, not intractable G43.829 Active 25008943 Problem Observation of other suspected mental condition Z03.89 Active 04129461 Problem Vaginal bleeding N93.9 Active 668357637 Problem Rheumatoid arthritis with positive rheumatoid factor, involving unspecified site M05.9 Active 483426136 Problem Insomnia, unspecified type G47.00 Active 508483513 Problem Other chronic pain G89.29 Active 12921099 Problem Difficulty of mother performing R63.3 Active [id number] ALLERGIES No Information ENCOUNTERS Encounter Location Date Diagnosis [facility] [address] [address] Jun, [facility] [address] [place] [address] May, [facility] [address] [place] [address] May, Observation of other suspected mental condition Z03.89 [facility] [id number] [place] [address]57- 9028 May, [facility] [address] [address] May, Family discord Z63.8 [facility] [address] [id number] Mar, Dental examination Z01.20 [facility] [address] [address] Jan, [place] [id number] [place] [address] 23560- 9497 Jan, [place] [id number] [place] [address] 62065- 4658 Jan, [facility] [id number] [place] [address] 99361- 9611 Jan, [place] [address] [address] Dec, Pelvic pain R10.2 and Vaginal bleeding N93.9 [place] [id number] [place] [address] 24253- 0330 Dec, [place] [id number] [place] [address] 18222- 8100 Dec, [place] [id number] [place] [address] 52834- 0793 Dec, Screening, deficiency anemia, iron Z13.0 [place] [id number] [place] [address] 84065- 3591 Oct, Rheumatoid arthritis with positive rheumatoid factor, involving unspecified site M05.9 [place] [id number] [place] [address] 37407- 4268 Oct, Rheumatoid arthritis with positive rheumatoid factor, involving unspecified site M05.9 [place] [id number] [place] [address] 77487- 9780 Oct, Closed nondisplaced fracture of third metatarsal bone of right foot with routine healing, subsequent encounter S92.334D ; Closed nondisplaced fracture of second metatarsal bone of right foot with routine healing, subsequent encounter S92.324D ; Closed nondisplaced fracture of phalanx of left great toe with routine healing, unspecified phalanx, subsequent encounter S92.405D and Other chronic pain G89.29 [place] [id number] [place] [address] 41337- 2329 Oct, Closed nondisplaced fracture of third metatarsal [...] positive rheumatoid factor, involving unspecified site M05.9 [facility] [id number] [place] [address] 01965- 9965 16 Oct, 2017 [place] [id number] [place] [address] 94413- 0031 Oct, Injury of finger of right hand, initial encounter S69.91XA and Closed displaced fracture of distal phalanx of right middle finger, initial encounter S62.632A [place] [id number] [place] [address] 85718- 6909 Sep, Mastitis N61.0 and MRSA (methicillin resistant staph aureus ) culture positive Z22.322 [place] [id number] [place] [address] 87307- 1763 Sep, [facility] [id number] [place] [address] 89557- 8230 Sep, Difficulty of mother performing R63.3 [facility] [id number] [place] [address] 01734- 4453 Sep, Acute mastitis of left breast N61.0 [facility] [address] [id number], [place] [address] Sep, Abscess L02.91 [facility] [id number] [place] [address] 75904- 4948 Sep, [facility] [id number] [place] [address] 59064- 5541 Jun, [facility] [id number] [place] [address] 92198- 0383 Jun, care, subsequent in second trimester Z34.82 ; Placenta previa in second trimester O44.02 ; Abnormal quad screen O28.0 ; History of delivery, currently O09.219 and 24 weeks gestation of Z3A.24 [place] [id number] [place] [address] 11938- 0319 May, Dental examination Z01.20 [place] [address] 90915- 4016 May, History of delivery, currently O09.219 [place] [address] 83675- 6340 May, [place] [address] 52752- 0150 May, 20 weeks gestation of Z3A.20 ; care, subsequent in second trimester Z34.82 ; History of delivery, currently O09.219 and Abnormal quad screen O28.0 [place] [id number] [place] [address] 47388- 6217 Apr, Elevated blood sugar level R73.9 and Glucosuria R81 [place] [id number] [place] [address] 52416- 5397 Apr, Elevated blood sugar level R73.9 and Glucosuria R81 [place] [id number] [place] [address] 26236- 8669 Apr, Elevated blood sugar level R73.9 [place] [id number] [place] [address] 11009- 9314 Apr, [address] 89182- 3959 Apr, 16 weeks gestation of Z3A.16 ; care, subsequent in second trimester Z34.82 ; Encounter for immunization Z23 and Glucosuria R81 [place] [address] 69304- 0569 Mar, 12 weeks gestation of Z3A.12 [place] [id number] [place] [address] 27053- 7293 Feb, [place] [address] 11093- 8843 Feb, care, subsequent in first trimester Z34.81 and 8 weeks gestation of Z3A.08 [place] [address] 82839- 1885 Jan, [place] [address] 67212- 4703 Jul, Encounter for test, result unknown Z32.00 [place] [address] 36193- 0630 Jun, control counseling Z30.9 and Insomnia, unspecified type G47.[address] 91178- 7712 Sep, Encounter for test Z32.00 [place] [address] 05422- 9626 Jul, [place] [address] 77536- 9968 Jul, Well woman exam Z01.419 ; Encounter for screening for malignant neoplasm of cervix Z12.4 ; Vaginal discharge N89.8 ; Routine screening for STI (sexually transmitted infection) Z11.3 ; Encounter for prescription for transdermal contraceptive Z30.49 ; Nausea with vomiting, unspecified R11.2 ; Menstrual migraine without status migrainosus, not intractable G43.829 and History of anxiety Z86.[address] [address]79- 6917 Jun, Encounter for surveillance of transdermal contraceptive Z30.49 and Sauceda F48.[address] 36796- 8152 Oct, [facility] [place] [facility] [address] [id number] [place] [address]- 6436 Oct, [facility] [place] [facility] [address] [id number] [place] [address]- 7450 Jul, [facility] [place] [facility] [address] [id number] [place] [address]- 1368 Jul, [facility] [place] [facility] [address] [id number] [place] [address]- 2117 Jul, [facility] [place] [facility] [address] [id number] [place] [address]- 6761 Jul, [facility] [place] [facility] [address] [id number] [place] [address]- 5821 Jul, [facility] [place] [facility] [address] [id number] [place] [address]- 4832 Jul, [facility] [place] [facility] [address] [id number] [place] [address]- 3118 Jun, [facility] [place] [facility] [address] [id number] [place] [address]- 3837 Jun, [facility] [place] [facility] [address] [id number] [place] [address]- 4160 May, [facility] [place] [facility] [address] [id number] [place] [address]- 2945 May, [facility] [place] [facility] [address] [id number] [place] [address]- 3406 May, [facility] [place] [facility] [address] [id number] [place] [address]- 9492 May, [facility] [place] [facility] [address] [id number] [place] [address]- 4112 Feb, [facility] [place] [facility] [address] [id number] [place] [address]- 7256 Feb, [facility] [place] [facility] [address] [id number] [place] [address]- 7532 Feb, [facility] [place] [facility] [address] [id number] [place] [address]- 9605 Feb, [facility] [place] [facility] [address] [id number] [place] [address]- 1635 Oct, [facility] [place] [facility] [address] [id number] [place] [address]- 2179 Oct, [facility] [place] [facility] [address] [id number] [place] [address]- 9467 Sep, [facility] [place] [facility] [address] [id number] [place] [address]- 9010 Sep, [facility] [place] [facility] [address] [id number] [place] [address]- 6335 Sep, [facility] [place] [facility] [address] [id number] [place] [address]- 6771 Sep, [facility] [place] [facility] [address] [id number] [place] [address]- 0618 Aug, [facility] [place] [facility] [address] [id number] [place] [address]- 9208 Aug, [facility] [place] [facility] [address] [id number] [place] [address]- 9200 Jul, [facility] [place] [facility] [address] [id number] [place] [address]- 2708 Jul, [facility] [place] [facility] [address] [id number] [place] [address]- 3695 Jun, [facility] [place] [facility] [address] [id number] [place] [address]- 8071 Jun, [facility] [place] [facility] [address] [id number] [place] [address]- 1119 Jun, [facility] [place] [facility] [address] [id number] [place] [address]- 3516 Jun, [facility] [place] [facility] [address] [id number] [place] [address]- 4961 Jun, [facility] [address] [id number] [place] [address]- 3267 May, [facility] [place] [facility] [address] [id number] [place] [address]- 3986 May, [facility] [place] [facility] [address] [id number] [place] [address]- 9639 May, [facility] [place] [facility] [address] [id number] [place] [address]- 8484 May, [facility] [place] [facility] [address] [id number] [place] [address]- 5431 Apr, [facility] [place] [facility] [address] [id number] [place] [address]- 7333 Apr, [facility] [place] [facility] [address] [facility] [id number] [place] [address]- 6720 Apr, [facility] [place] [facility] [address] [id number] [place] [address]- 4922 Feb, [facility] [place] [facility] [address] [facility] [id number] [place] [address]- 8149 Jan, [facility] [place] [facility] [address] [facility] [id number] [place] [address]- 2108 Aug, [facility] [place] [facility] [address] [facility] [id number] [place] [address]- 7564 Aug, [facility] [place] [facility] [address] [id number] [place] [address] 2548 12 Aug, 2012 [facility] [place] [facility] [address] [id number] [place] [address]- 8402 08 Aug, 2012 [facility] [place] [facility] [address] [facility] [id number] [place] [address]- 2546 07 Aug, 2012 [facility] [place] [facility] [address] [facility] [id number] [place] [address]- 6956 Aug, [facility] [address] [id number] [place] [address]- 9246 Jul, [facility] [place] [facility] [address] [id number] [place] [address]- 4553 Jul, [facility] [address] [id number] [place] [address]- 2955 Jul, [facility] [place] [facility] [address] [id number] [place] [address]- 5445 Jul, [facility] [address] [id number] [place] [address]- 2324 Jul, [facility] [address] [id number] [place] [address]- 9643 Jul, [facility] [address] [id number] [place] [address]- 6505 Jul, [facility] [address] [id number] [place] [address]- 9281 Jun, [facility] [address] [id number] [place] [address]- 6950 Jun, [facility] [place] [facility] [address] [id number] [place] [address]- 6666 Jun, [facility] [place] [facility] [address] [id number], [place] [address]- 8316 Jun, [facility] [place] [facility] [address] [id number], [place] [address]- 8219 Jun, [facility] [place] [facility] [address] [id number] [place] [address]- 9775 Jun, [facility] [place] [facility] [address] [id number], [place] [address]- 3481 Jun, [facility] [place] [facility] [address] [id number] [place] [address]- 0875 Jun, [facility] [place] [facility] [address] [id number] [place] [address]- 9274 Jun, [facility] [place] [facility] [address] [id number] [place] [address]- 3512 Jun, [facility] [place] [facility] [address] [id number] [place] 9115 May, [facility] [place] [facility] [address] [id number] [place] [address]- 1591 May, [facility] [place] [facility] [address] [id number] [place] [address]- 4863 May, [facility] [place] [facility] [address] [id number] [place] [address]- 7887 May, [facility] [place] [facility] [address] [id number] [place] [address]- 0490 May, [facility] [place] [facility] [address] [facility] [id number] [place] 8905 Apr, [facility] [place] [facility] [address] [id number] [place] [address]- 3112 Apr, [facility] [place] [facility] [address] [facility] [id number] [place] [address]- 3447 Apr, [facility] [place] [facility] [address] [facility] [id number] [place] [address]- 4347 Apr, [facility] [place] [facility] [address] [facility] [id number] [place] [address]- 9993 Apr, [facility] [place] [facility] [address] [id number], [place] [address]- 2675 25 Mar, 2012 [facility] [place] [facility] [address] [id number] [place] [address]- 6669 20 Sep2011 [facility] [place] [facility] [address] [facility] [id number] [place] [address]- 5116 12 Mar, 2012 [facility] [place] [facility] [address] [facility] [id number], [place] [address]- 2815 Mar, [facility] [place] [facility] [address] [id number] [place] [address]- 6464 Mar, [facility] [place] [facility] [address] [id number] [place] [address]- 6157 Mar, [facility] [place] [facility] [address] [id number] [place] [address]- 2597 Feb, [facility] [place] [facility] [address] [id number] [place] [address]- 7014 Feb, [facility] [place] [facility] [address] [id number] [place] [address]- 7300 Feb, [facility] [place] [facility] [address] [id number] [place] [address]- 1142 Feb, [facility] [place] [facility] [address] [id number] [place] [address]- 3167 Feb, [facility] [place] [facility] [address] [id number] [place] [address]- 7027 Jan, [facility] [place] [facility] [address] [id number] [place] [address]- 6271 Jan, [facility] [place] [facility] [address] [id number] [place] [address]- 1440 Jan, [facility] [place] [facility] [address] [id number] [place] [address]- 2103 Jan, [facility] [place] [facility] [address] [id number] [place] [address]- 1147 Jan, [facility] [place] [facility] [address] [id number] [place] [address]- 8975 Jan, [facility] [place] [facility] [address] [id number] [place] [address]- 9969 Dec, [facility] [place] [facility] [address] [id number] [place] [address]- 8362 Dec, [facility] [place] [facility] [address] [id number] [place] [address]- 3180 Dec, [facility] [place] [facility] [address] [id number] [place] [address]- 0876 Dec, [facility] [place] [facility] [address] [id number] [place] 3806 Dec, [facility] [place] [facility] [address] [id number] [place] [address]- 3793 Dec, [facility] [place] [facility] [address] [id number] [place] [address]- 9472 Dec, [facility] [place] [facility] [address] [id number] [place] [address]- 5693 November, [facility] [place] [facility] [address] [id number] [place] [address]- 2575 November, [facility] [place] [facility] [address] [id number] [place] [address]- 8793 November, [facility] [place] [facility] [address] [id number] [place] [address]- 8091 Oct, [facility] [place] [facility] [address] [id number] [place] [address]- 5898 Oct, [facility] [place] [facility] [address] [id number] [place] [address]- 1436 Oct, [facility] [place] [facility] [address] [id number] [place] [address]- 2014 Sep, [facility] [place] [facility] [address] [id number] [place] [address]- 1134 Sep, [facility] [place] [facility] [address] [id number] [place] [address]- 5603 Sep, [facility] [place] [facility] [address] [id number] [place] [address]- 4265 Sep, [facility] [place] [facility] [address] [id number] [place] [address]- 9514 Sep, [facility] [place] [facility] [address] [id number] [place] [address]- 1578 Aug, [facility] [address] [id number] [place] [address]- 7436 Aug, [facility] [place] [facility] [address] [id number] [place] [address]- 5866 10 Aug, 2011 [facility] [address] [id number] [place] [address]- 4916 03 Aug, 2011 [facility] [place] [facility] [address] [id number] [place] [address]- 1843 30 Jul, 2011 [facility] [place] [facility] [address] [id number] [place] [address]- 8804 29 Jul, 2011 [facility] [place] [facility] [address] [id number] [place] [address]- 3886 Jul, [facility] [place] [facility] [address] [id number] [place] [address]- 3731 Jul, [facility] [address] [id number] [place] [address]- 7078 Jul, [facility] [address] [id number] [place] [address]- 7144 Jul, [facility] [address] [id number] [place] [address]- 1284 Jul, [facility] [place] [facility] [address] [id number] [place] [address]- 4682 Jul, [facility] [place] [facility] [address] [id number] [place] [address]- 2894 16 Jun, 2011 [facility] [place] [facility] [address] [id number] [place] [address]- 9586 13 Jun, 2011 [facility] [place] [facility] [address] [id number] [place] [address]- 3315 12 Jun, 2011 [facility] [place] [facility] [address] [id number] [place] [address]- 9470 06 Jun, 2011 [facility] [place] [facility] [address] [id number] [place] [address]- 4824 14 May, 2011 [facility] [place] [facility] [address] [id number] [place] [address]- 7369 31 Apr, 2011 [facility] [place] [facility] [address] [id number] [place] [address]- 5768 13 Mar, 2011 [facility] [place] [facility] [address] [id number] [place] [address]- 8972 16 Dec, 2010 [facility] [place] [facility] [address] [id number] [place] [address]- 2994 10 Aug, 2010 [facility] [place] [facility] [address] [id number] [place] [address]- 2769 11 Jul, 2010 [facility] [place] [facility] [address] [id number] [place] [address]- 2921 18 Sep, 2009 [facility] [place] [facility] [address] [id number], [place] [address]- 2851 12 Jul, 2009 [facility] [place] [facility] [address] [id number], [place] [address]- 1088 14 Jun, 2009 [facility] [place] [facility] [address] [id number], [place] [address]- 2096 14 Jun, 2009 [facility] [place] [facility] [address] [id number], [place] [address]- 3968 02 May, 2009 [facility] [place] [facility] [address] [id number], [place] [address]- 9559 15 Apr, 2009 [facility] [place] [facility] [address] [id number], [place] [address]- 8232 15 Apr, 2009 [facility] [place] [facility] [address] [id number], [place] [address]- 5286 12 Apr, 2009 [facility] [place] [facility] [address] [id number], [place] [address] 17 Feb, 2009 [facility] [address] [facility] [id number] [place] [id number] Feb, [facility] [address] [facility] [id number] [place] [address] Jan, [facility] [address] [facility] [id number] [place] [address] November, IMMUNIZATIONS No Known Immunizations SOCIAL HISTORY Never Assessed REASON FOR VISIT Formal Assessment PLAN OF CARE Activity Details Follow Up 1 Week Reason: Pending Test PDM - ATS (PROFILE 8) VITAL SIGNS MEDICATIONS Unknown Medications RESULTS No Results PROCEDURES Procedure Date Ordered Result Body Site ALCOHOL AND/OR DRUG ASSESSMENT May 21, 2018 DRUG TEST PRSMV CHEM ANLYZR May 21, 2018 INSTRUCTIONS MEDICATIONS ADMINISTERED No Known Medications MEDICAL (GENERAL) HISTORY Type Description Date Medical History Arthritis Surgical History cholecystectomy Surgical History wisdom teeth extraction Surgical History Partial hysterectomy 2018 Hospitalization History child Hospitalization History colitis
--- OUTSIDE RECORDS SUMMARY | 2018-06-14 20:49 | XMS REPORT ---
Author Author LESLIE CELE [facility] Address [address] [place] [address] Care Team Providers Care Rn Lab Name Role Phone LESLIEALBERTO REIDHANY Unavailable PROBLEMS Type Condition ICD9-CM Code KFV48-TZ Code Onset Dates Condition Status SNOMED Code Problem Menstrual migraine without status migrainosus, not intractable G43.829 Active 28101532 Problem Vaginal bleeding N93.9 Active 789640565 Problem Other chronic pain G89.29 Active 79185868 Problem Insomnia, unspecified type G47.00 Active 860142172 Problem History of anxiety Z86.59 Active 480900613 Problem Difficulty of mother performing R63.3 Active 732778996 Problem Rheumatoid arthritis with positive rheumatoid factor, involving unspecified site M05.9 Active [id number] ALLERGIES No Information ENCOUNTERS Encounter Location Date Diagnosis [facility] [id number] [place] [address] 78756- 1924 Jun, [facility] [id number] [place] [address] 18045- 6697 Jan, [facility] [id number] [place] [address] 23772- 8340 Jan, [facility] [id number] [place] [address] 49240- 3451 Jan, [facility] [id number] [place] [address] 27232- 2753 Jan, [facility] [id number] [place] [address] 35890- 0900 Dec, Pelvic pain R10.2 and Vaginal bleeding N93.9 [facility] [id number] [place] [address] 32116- 6591 Dec, [facility] [address] [address] 0426 Dec, [facility] [place] [id number] [place] [address] 92598- 0483 Dec, Screening, deficiency anemia, iron Z13.0 [facility] [address] [place] [address] 81700- 2459 Oct, Rheumatoid arthritis with positive rheumatoid factor, involving unspecified site M05.9 [facility] [place] [id number] [place] [address] 94781- 3599 Oct, Rheumatoid arthritis with positive rheumatoid factor, involving unspecified site M05.9 [facility] [id number] [place] [address] 22577- 1898 Oct, Closed nondisplaced fracture of third metatarsal bone of right foot with routine healing, subsequent encounter S92.334D ; Closed nondisplaced fracture of second metatarsal bone of right foot with routine healing, subsequent encounter S92.324D ; Closed nondisplaced fracture of phalanx of left great toe with routine healing, unspecified phalanx, subsequent encounter S92.405D and Other chronic pain G89.29 [facility] [place] [address] [place] [address] 48908- 9156 17 Oct, 2017 Closed nondisplaced fracture of [...] factor, involving unspecified site M05.9 [facility] [place] [address] [place] [address] 97317- 9891 Oct, [facility] [id number] [place] [address] 02088- 2231 Oct, Injury of finger of right hand, initial encounter S69.91XA and Closed displaced fracture of distal phalanx of right middle finger, initial encounter S62.632A [facility] [id number] [place] [address] 01152- 8394 Sep, Mastitis N61.0 and MRSA (methicillin resistant staph aureus ) culture positive Z22.322 [facility] [address] [place] [address] 06549- 1189 Sep, [facility] [id number] [place] [address] 72640- 0712 Sep, Difficulty of mother performing R63.3 [facility] [id number] [place] [address] 45129- 5189 Sep, Acute mastitis of left breast N61.0 [facility] [address] [place] [address] 58758 -8087 Sep, Abscess L02.91 [facility] [place] [id number] [place] [address] 40912- 9363 Sep, [facility] [id number] [place] [address] 62678- 3477 Jun, [facility] [id number] [place] [address] 24391- 1646 05 Jun, 2017 care, subsequent in second trimester Z34.82 ; Placenta previa in second trimester O44.02 ; Abnormal quad screen O28.0 ; History of delivery, currently O09.219 and 24 weeks gestation of Z3A.24 [facility] [address], [place] [address]- 0099 16 May, 2017 Dental examination Z01.20 [facility] [place] [address] [place] [address] 79732- 9378 08 May, 2017 History of delivery, currently O09.219 [facility] [place] [address] [place] [address] 22025- 6055 07 May, 2017 [place] [place] [id number] [place] [address] 39550- 6505 May, 20 weeks gestation of Z3A.20 ; care, subsequent in second trimester Z34.82 ; History of delivery, currently O09.219 and Abnormal quad screen O28.0 [facility] [place] [id number] [place] [address] 83996- 5866 Apr, Elevated blood sugar level R73.9 and Glucosuria R81 [facility] [id number] [place] [address] 83455- 3998 Apr, Elevated blood sugar level R73.9 and Glucosuria R81 [address] 22870- 6296 Apr, Elevated blood sugar level R73.9 [place] [id number] [place] [address] 94608- 7616 Apr, [facility] [place] [id number] [place] [address] 66604- 5787 Apr, 16 weeks gestation of Z3A.16 ; care, subsequent in second trimester Z34.82 ; Encounter for immunization Z23 and Glucosuria R81 [facility] [place] [id number] [place] [address] 12406- 5023 Mar, 12 weeks gestation of Z3A.12 [place] [id number] [place] [address] 60913- 9285 Feb, [place] [id number] [place] [address] 34788- 2801 Feb, care, subsequent in first trimester Z34.81 and 8 weeks gestation of Z3A.08 [place] [id number] [place] [address] 77260- 0124 Jan, [place] [id number] [place] [address] 45441- 7456 Jul, Encounter for test, result unknown Z32.00 [place] [id number] [place] [address] 65510- 5445 Jun, control counseling Z30.9 and Insomnia, unspecified type G47.00 [place] [id number] [place] [address] 38381- 2284 Sep, Encounter for test Z32.00 [facility] [address] 83349- 8044 Jul, [facility] [address] 06721- 2992 Jul, Well woman exam Z01.419 ; Encounter for screening for malignant neoplasm of cervix Z12.4 ; Vaginal discharge N89.8 ; Routine screening for STI (sexually transmitted infection) Z11.3 ; Encounter for prescription for transdermal contraceptive Z30.49 ; Nausea with vomiting, unspecified R11.2 ; Menstrual migraine without status migrainosus, not intractable G43.829 and History of anxiety Z86.59 [place] [address] 58674- 4467 Jun, Encounter for surveillance of transdermal contraceptive Z30.49 and Sauceda F48.9 [place] [id number] [place] [address] 08361- 7621 Oct, [place] [place] [id number] [place] [address] 84787- 5216 Oct, [place] [id number] [place] [address] 52916- 7245 Jul, [place] [id number] [place] [address] 61925- 0974 Jul, [place] [address] 34183- 6835 Jul, [place] [id number] [place] [address] 39037- 8347 Jul, [place] [address] 76213- 5433 Jul, [facility] [place] [facility] [address] [id number] [place] [address]- 1023 Jul, [facility] [place] [facility] [address] [id number] [place] [address]- 1881 Jun, [facility] [place] [facility] [address] [id number] [place] 9416 Jun, [facility] [place] [facility] [address] [id number] [place] [address]- 4925 May, [facility] [place] [facility] [address] [id number] [place] [address]- 4841 May, [facility] [place] [facility] [address] [id number] [place] [address]- 6342 May, [facility] [place] [facility] [address] [id number] [place] [address]- 4989 May, [facility] [place] [facility] [address] [id number] [place] [address]- 3291 Feb, [facility] [place] [facility] [address] [id number] [place] [address]- 7495 Feb, [facility] [place] [facility] [address] [id number] [place] [address]- 9881 Feb, [facility] [place] [facility] [address] [id number] [place] [address]- 2158 Feb, [facility] [place] [facility] [address] [id number] [place] [address]- 1141 Oct, [facility] [place] [facility] [address] [id number] [place] [address]- 3680 Oct, [facility] [place] [facility] [address] [id number] [place] [address]- 8753 Sep, [facility] [place] [facility] [address] [id number] [place] [address]- 6539 Sep, [facility] [place] [facility] [address] [id number] [place] [address] 2544 Sep, [facility] [address] [id number] [place] [address]- 1050 Sep, [facility] [place] [facility] [address] [id number] [place] [address]- 7656 Aug, [facility] [place] [facility] [address] [id number] [place] [address]- 9176 Aug, [facility] [place] [facility] [address] [id number] [place] [address]- 2133 Jul, [facility] [place] [facility] [address] [id number] [place] [address]- 6481 Jul, [facility] [place] [facility] [address] [id number] [place] [address]- 5739 Jun, [facility] [place] [facility] [address] [id number] [place] [address]- 8280 Jun, [facility] [address] [id number] [place] [address]- 3303 Jun, [facility] [place] [facility] [address] [id number] [place] [address]- 8691 Jun, [facility] [address] [facility] [id number] [place] [address]- 2862 Jun, [facility] [place] [facility] [address] [id number] [place] [address]- 2667 May, [facility] [place] [facility] [address] [id number] [place] [address]- 6406 May, [facility] [place] [facility] [address] [id number] [place] [address]- 6360 May, [facility] [place] [facility] [address] [id number] [place] [address]- 8906 May, [facility] [place] [facility] [address] [id number] [place] [address]- 3961 Apr, [facility] [place] [facility] [address] [id number] [place] [address]- 6909 Apr, [facility] [place] [facility] [address] [id number] [place] [address]- 6119 Apr, [facility] [place] [facility] [address] [id number] [place] [address]- 3708 Feb, [facility] [place] [facility] [address] [id number] [place] [address]- 7898 Jan, [facility] [place] [facility] [address] [id number] [place] [address]- 4250 Aug, [facility] [place] [facility] [address] [id number] [place] [address]- 2884 Aug, [facility] [place] [facility] [address] [id number] [place] [address]- 1517 Aug, [facility] [place] [facility] [address] [id number] [place] [address]- 9902 Aug, [facility] [place] [facility] [address] [id number] [place] [address]- 0759 Aug, [facility] [place] [facility] [address] [id number] [place] [address]- 1673 Aug, [facility] [place] [facility] [address] [id number] [place] [address]- 5950 Jul, [facility] [place] [facility] [address] [id number] [place] [address]- 1938 Jul, [facility] [place] [facility] [address] [id number] [place] [address]- 9727 Jul, [facility] [place] [facility] [address] [id number] [place] [address]- 2830 Jul, [facility] [place] [facility] [address] [id number] [place] [address]- 7432 16 Jul, 2012 [facility] [place] [facility] [address] [id number] [place] [address]- 8744 Jul, [facility] [address] [id number] [place] [address]- 7080 Jul, [facility] [address] [id number] [place] [address]- 9967 Jun, [facility] [address] [id number] [place] [address]- 1768 Jun, [facility] [address] [id number] [place] [address]- 3439 Jun, [facility] [address] [id number] [place] [address]- 7769 Jun, [facility] [address] [id number] [place] [address]- 4643 Jun, [facility] [address] [id number] [place] [address]- 3872 Jun, [facility] [address] [id number] [place] [address]- 5605 Jun, [facility] [address] [id number] [place] [address]- 6387 Jun, [facility] [address] [id number] [place] [address]- 9305 Jun, [facility] [address] [id number] [place] [address]- 8200 Jun, [facility] [address] [id number] [place] [address]- 5861 May, [facility] [place] [facility] [address] [id number] [place] [address]- 3781 May, [facility] [place] [facility] [address] [id number] [place] [address]- 9576 May, [facility] [address] [id number] [place] [address]- 2888 May, [facility] [place] [facility] [address] [id number] [place] [address]- 9113 May, [facility] [place] [facility] [address] [id number] [place] [address]- 2120 Apr, [facility] [place] [facility] [address] [id number] [place] 5509 Apr, [facility] [place] [facility] [address] [id number] [place] [address]- 4751 Apr, [facility] [place] [facility] [address] [id number] [place] [address]- 1816 Apr, [facility] [place] [facility] [address] [id number] [place] [address]- 4792 Apr, [facility] [place] [facility] [address] [id number] [place] [address]- 4167 25 Mar, 2012 [facility] [place] [facility] [address] [id number] [place] [address]- 3817 20 Mar, 2012 [facility] [place] [facility] [address] [id number] [place] [address]- 6768 12 Mar, 2012 [facility] [place] [facility] [address] [id number], [place] [address]- 1644 07 Mar, 2012 [facility] [place] [facility] [address] [id number], [place] [address]- 9980 06 Mar, 2012 [facility] [place] [facility] [address] [id number], [place] [address]- 4869 05 Mar, 2012 [facility] [place] [facility] [address] [id number] [place] [address]- 8918 Feb, [facility] [place] [facility] [address] [id number], [place] [address]- 6913 Feb, [facility] [place] [facility] [address] [id number], [place] [address]- 5585 Feb, [facility] [place] [facility] [address] [id number], [place] [address]- 4969 Feb, [facility] [place] [facility] [address] [id number] [place] [address]- 2342 Feb, [facility] [place] [facility] [address] [id number] [place] [address]- 8620 Jan, [facility] [place] [facility] [address] [id number] [place] [address]- 1343 Jan, [facility] [place] [facility] [address] [id number] [place] [address]- 7540 Jan, [facility] [place] [facility] [address] [id number] [place] [address]- 2785 Jan, [facility] [place] [facility] [address] [id number] [place] [address]- 2805 Jan, [facility] [place] [facility] [address] [id number] [place] [address]- 4024 Jan, [facility] [place] [facility] [address] [id number] [place] [address]- 2951 Dec, [facility] [place] [facility] [address] [id number] [place] [address]- 4481 Dec, [facility] [place] [facility] [address] [facility] [id number] [place] [address]- 1964 Dec, [facility] [place] [facility] [address] [id number] [place] [address]- 3048 Dec, [facility] [place] [facility] [address] [id number] [place] [address]- 1665 Dec, [facility] [place] [facility] [address] [id number] [place] [address]- 2067 Dec, [facility] [place] [facility] [address] [facility] [id number] [place] [address]- 3583 Dec, [facility] [place] [facility] [address] [facility] [id number] [place] [address]- 1685 November, [facility] [place] [facility] [address] [id number] [place] [address]- 4281 November, [facility] [place] [facility] [address] [id number] [place] [address]- 6042 November, [facility] [place] [facility] [address] [id number] [place] [address]- 5372 Oct, [facility] [place] [facility] [address] [id number] [place] [address]- 5281 Oct, [facility] [place] [facility] [address] [id number] [place] [address]- 8974 Oct, [facility] [place] [facility] [address] [id number] [place] [address]- 5896 Sep, [facility] [place] [facility] [address] [id number] [place] [address]- 8303 Sep, [facility] [place] [facility] [address] [id number] [place] [address]- 3105 Sep, [facility] [place] [facility] [address] [id number] [place] [address]- 4701 Sep, [facility] [place] [facility] [address] [id number] [place] [address]- 9579 Sep, [facility] [place] [facility] [address] [id number] [place] [address]- 1764 Aug, [facility] [place] [facility] [address] [id number] [place] [address]- 4945 Aug, [facility] [place] [facility] [address] [id number] [place] [address]- 4234 Aug, [facility] [place] [facility] [address] [id number] [place] [address]- 0241 Aug, [facility] [place] [facility] [address] [id number] [place] [address]- 9333 Jul, [facility] [place] [facility] [address] [id number] [place] [address]- 4234 29 Jul, 2011 [facility] [place] [facility] [address] [id number] [place] [address]- 8159 Jul, [facility] [place] [facility] [address] [id number] [place] [address]- 1990 Jul, [facility] [place] [facility] [address] [id number] [place] [address]- 9891 18 Jul, 2011 [facility] [place] [facility] [address] [id number] [place] [address]- 1724 Jul, [facility] [place] [facility] [address] [id number] [place] [address]- 7725 Jul, [facility] [place] [facility] [address] [id number] [place] [address]- 2214 10 Jul, 2011 [facility] [place] [facility] [address] [id number] [place] [address]- 0397 16 Jun, 2011 [facility] [place] [facility] [address] [id number] [place] [address]- 0041 13 Jun, 2011 [facility] [place] [facility] [address] [id number] [place] [address]- 7156 12 Jun, 2011 [facility] [place] [facility] [address] [id number] [place] [address]- 9718 06 Jun, 2011 [facility] [place] [facility] [address] [id number], [place] [address]- 7296 14 May, 2011 [facility] [place] [facility] [address] [id number] [place] [address]- 4238 31 Apr, 2011 [facility] [place] [facility] [address] [id number] [place] [address]- 1292 13 Mar, 2011 [facility] [place] [facility] [address] [id number] [place] [address]- 5023 16 Dec, 2010 [facility] [place] [facility] [address] [id number] [place] [address]- 2867 10 Aug, 2010 [facility] [place] [facility] [address] [place] [address] 11 Jul, 2010 [facility] [id number] [address] Sep, [facility] [id number] [place] [address] Jul, [facility] [id number] [address] 14 Jun, 2009 [facility] [id number] [place] [address] Jun, [facility] [id number] [place] [address] May, [facility] [id number] [address] Apr, [facility] [address] [place] [address] Apr, [facility] [id number] [place] [address] Apr, [facility] [id number] [place] [address] Feb, [facility] [id number] [address] Feb, [facility] [address] [place] [address] Jan, [facility] [address] [id number], [place] [address] November, IMMUNIZATIONS No Known Immunizations SOCIAL HISTORY Never Assessed REASON FOR VISIT Requests return call PLAN OF CARE VITAL SIGNS MEDICATIONS Unknown Medications RESULTS No Results PROCEDURES No Known procedures INSTRUCTIONS MEDICATIONS ADMINISTERED No Known Medications MEDICAL (GENERAL) HISTORY Type Description Date Medical History Arthritis Surgical History cholecystectomy Surgical History wisdom teeth extraction Surgical History Partial hysterectomy 2018 Hospitalization History child Hospitalization History colitis
--- OUTSIDE RECORDS SUMMARY | 2018-06-14 20:49 | XMS REPORT ---
Author Author CLARIJUSTIN ARIEL [facility] Address Unknown Care Team Providers Care Quality Assurance Technician Name Role Phone ARIEL EGAN Unavailable PROBLEMS Type Condition ICD9-CM Code TQI03-ZN Code Onset Dates Condition Status SNOMED Code Problem Menstrual migraine without status migrainosus, not intractable G43.829 Active 29505303 Problem Vaginal bleeding N93.9 Active 747242268 Problem Other chronic pain G89.29 Active 40574079 Problem Insomnia, unspecified type G47.00 Active 839854801 Problem History of anxiety Z86.59 Active 975328683 Problem Difficulty of mother performing R63.3 Active 887393638 Problem Rheumatoid arthritis with positive rheumatoid factor, involving unspecified site M05.9 Active [id number] ALLERGIES Substance Reaction Event Type Date Status Tylenol/Codeine #3 Unknown Drug Allergy Mar, Active Tramadol HCl vomiting Drug Allergy Mar, Active Keflex Unknown Drug Allergy Mar, Active ENCOUNTERS Encounter Location Date Diagnosis [facility] [id number] [place] [address] 96055- 6934 Jun, [facility] [address] [id number] Mar, Dental examination Z01.20 [facility] [id number] [place] [address] 28445- 5331 Jan, [facility] [id number] [place] [address] 59870- 4798 Jan, [facility] [address] 0[address]10- 3599 Jan, [facility] [id number] [place] [address] 94960- 4263 Jan, [facility] [address] 03097- 5175 Dec, Pelvic pain R10.2 and Vaginal bleeding N93.9 [place] [id number] [place] [address] 22143- 4445 Dec, [place] [id number] [place] [address] 70583- 8607 Dec, [facility] [facility] [id number] [place] [address] 32122- 4385 Dec, Screening, deficiency anemia, iron Z13.0 [address] [place] [address] 78440- 9043 Oct, Rheumatoid arthritis with positive rheumatoid factor, involving unspecified site M05.9 [place] [address] [place] [address] 73840- 8665 Oct, Rheumatoid arthritis with positive rheumatoid factor, involving unspecified site M05.9 [place] [id number] [place] [address] 47896- 3369 Oct, Closed nondisplaced fracture of third metatarsal bone of right foot with routine healing, subsequent encounter S92.334D ; Closed nondisplaced fracture of second metatarsal bone of right foot with routine healing, subsequent encounter S92.324D ; Closed nondisplaced fracture of phalanx of left great toe with routine healing, unspecified phalanx, subsequent encounter S92.405D and Other chronic pain G89.29 [place] [address] [address] 4[address] 17 Oct, 2017 Closed nondisplaced fracture of [...] positive rheumatoid factor, involving unspecified site M05.9 [place] [address] [place] [address] 2125 Oct, [facility] [id number] [place] [address] 40076- 1259 Oct, Injury of finger of right hand, initial encounter S69.91XA and Closed displaced fracture of distal phalanx of right middle finger, initial encounter S62.632A [facility] [id number] [place] [address] 37490- 6539 Sep, Mastitis N61.0 and MRSA (methicillin resistant staph aureus ) culture positive Z22.322 [place] [id number] [place] [address] 92783- 2222 Sep, [place] [id number] [place] [address] 16852- 8943 Sep, Difficulty of mother performing R63.3 [place] [id number] [place] [address] 86700- 5168 Sep, Acute mastitis of left breast N61.0 [facility] [address] [place] [address] 92892 -6923 Sep, Abscess L02.91 [place] [id number] [place] [address] 53871- 3703 Sep, [facility] [address] [place] [address] 72947- 0633 Jun, [place] [id number] [place] [address] 80634- 8508 05 Jun, 2017 care, subsequent in second trimester Z34.82 ; Placenta previa in second trimester O44.02 ; Abnormal quad screen O28.0 ; History of delivery, currently O09.219 and 24 weeks gestation of Z3A.24 [place] [address] [place] [address] 37274- 4496 16 May, 2017 Dental examination Z01.20 [place] [id number] [place] [address] 59495- 2809 May, History of delivery, currently O09.219 [place] [id number] [place] [address] 18043- 2878 May, [place] [id number] [place] [address] 33725- 2586 May, 20 weeks gestation of Z3A.20 ; care, subsequent in second trimester Z34.82 ; History of delivery, currently O09.219 and Abnormal quad screen O28.0 [place] [id number] [place] [address] 25225- 2983 Apr, Elevated blood sugar level R73.9 and Glucosuria R81 [place] [address] 77537- 3695 Apr, Elevated blood sugar level R73.9 and Glucosuria R81 [place] [address] 62389- 5466 Apr, Elevated blood sugar level R73.9 [place] [id number] [place] [address] 12316- 6986 Apr, [place] [id number] [place] [address] 00876- 6401 Apr, 16 weeks gestation of Z3A.16 ; care, subsequent in second trimester Z34.82 ; Encounter for immunization Z23 and Glucosuria R81 [place] [id number] [place] [address] 08978- 1819 Mar, 12 weeks gestation of Z3A.12 [place] [id number] [place] [address] 68103- 8670 Feb, [place] [address] 34580- 6236 Feb, care, subsequent in first trimester Z34.81 and 8 weeks gestation of Z3A.08 [place] [id number] [place] [address] 94418- 3255 Jan, [place] [id number] [place] [address] 75195- 8724 Jul, Encounter for test, result unknown Z32.00 [place] [id number] [place] [address] 72210- 8252 Jun, control counseling Z30.9 and Insomnia, unspecified type G47.00 [place] [address] 98379- 7317 Sep, Encounter for test Z32.00 [place] [address] 47632- 9876 Jul, [place] [address] 83805- 9334 Jul, Well woman exam Z01.419 ; Encounter for screening for malignant neoplasm of cervix Z12.4 ; Vaginal discharge N89.8 ; Routine screening for STI (sexually transmitted infection) Z11.3 ; Encounter for prescription for transdermal contraceptive Z30.49 ; Nausea with vomiting, unspecified R11.2 ; Menstrual migraine without status migrainosus, not intractable G43.829 and History of anxiety Z86.59 [place] [id number] [place] [address] 00124- 3006 Jun, Encounter for surveillance of transdermal contraceptive Z30.49 and Sauceda F48.9 [place] [id number] [place] [address] 99041- 3342 Oct, [place] [id number] [place] [address] 73653- 5283 Oct, [place] [address] 02892- 3370 Jul, [place] [id number] [place] [address] 96911- 7936 Jul, [place] [address] 97303- 7034 Jul, [facility] [place] [facility] [address] [id number] [place] [address]- 3926 Jul, [facility] [place] [facility] [address] [id number] [place] [address]- 1313 Jul, [facility] [place] [facility] [address] [id number] [place] [address]- 9740 Jul, [facility] [place] [facility] [address] [id number] [place] 6153 Jun, [facility] [place] [facility] [address] [id number] [place] [address]- 3512 Jun, [facility] [place] [facility] [address] [id number] [place] [address]- 5652 May, [facility] [place] [facility] [address] [id number] [place] [address]- 1012 May, [facility] [place] [facility] [address] [id number] [place] [address]- 6676 May, [facility] [place] [facility] [address] [id number] [place] [address]- 7950 May, [facility] [place] [facility] [address] [id number] [place] [address]- 7316 Feb, [facility] [place] [facility] [address] [id number] [address]- 5106 Feb, [facility] [place] [facility] [address] [id number] [place] [address]- 8157 Feb, [facility] [place] [facility] [address] [id number] [place] [address]- 0003 Feb, [facility] [place] [facility] [address] [id number] [place] [address]- 7713 Oct, [facility] [place] [facility] [address] [id number] [place] [address]- 8374 Oct, [facility] [place] [facility] [address] [id number] [place] [address]- 6308 Sep, [facility] [place] [facility] [address] [id number] [place] [address]- 3961 Sep, [facility] [place] [facility] [address] [id number] [place] [address] 2546 Sep, [facility] [place] [facility] [address] [id number] [place] [address] 2546 Sep, [facility] [place] [facility] [address] [id number] [place] [address]- 0575 Aug, [facility] [place] [facility] [address] [id number] [place] [address]- 1766 Aug, [facility] [place] [facility] [address] [id number] [place] [address]- 1426 Jul, [facility] [place] [facility] [address] [id number] [place] [address]- 2770 Jul, [facility] [place] [facility] [address] [id number] [place] [address]- 5232 Jun, [facility] [place] [facility] [address] [id number] [place] [address]- 7361 Jun, [facility] [place] [facility] [address] [facility] [id number] [place] [address]- 1565 Jun, [facility] [place] [facility] [address] [id number] [place] [address] 2546 Jun, [facility] [place] [facility] [address] [id number] [place] [address] 254 Jun, [facility] [place] [facility] [address] [id number] [place] [address]- 3997 30 May, 2013 [facility] [place] [facility] [address] [id number] [place] [address]- 2546 29 May, 2013 [facility] [place] [facility] [address] [id number] [place] [address]- 7009 May, [facility] [address] [id number] [place] [address]- 0278 May, [facility] [place] [facility] [address] [id number] [place] [address]- 2996 Apr, [facility] [place] [facility] [address] [id number] [place] [address]- 7076 Apr, [facility] [place] [facility] [address] [id number] [place] [address]- 1696 Apr, [facility] [place] [facility] [address] [id number] [place] [address]- 9115 Feb, [facility] [place] [facility] [address] [id number] [place] [address]- 9366 Jan, [facility] [place] [facility] [address] [facility] [id number] [place] [address]- 4306 Aug, [facility] [place] [facility] [address] [id number] [address]- 2136 Aug, [facility] [place] [facility] [address] [id number] [place] [address]- 2976 Aug, [facility] [place] [facility] [address] [facility] [id number] [address]- 1786 Aug, [facility] [place] [facility] [address] [id number] [address]- 4246 Aug, [facility] [place] [facility] [address] [id number] [address]- 0106 Aug, [facility] [place] [facility] [address] [id number] [place] [address]- 4006 Jul, [facility] [place] [facility] [address] [id number] [address]- 3356 Jul, [facility] [place] [facility] [address] [id number] [place] [address]- 0576 Jul, [facility] [place] [facility] [address] [id number] [place] [address]- 3681 18 Jul, 2012 [facility] [address] [id number] [place] [address]- 2171 16 Jul, 2012 [facility] [place] [facility] [address] [id number] [place] [address]- 1046 Jul, [facility] [address] [id number] [place] [address]- 1596 08 Jul, 2012 [facility] [address] [id number] [place] [address]- 7550 Jun, [facility] [address] [id number] [place] [address]- 4623 Jun, [facility] [address] [id number] [place] [address]- 8620 Jun, [facility] [address] [id number] [place] [address]- 4924 Jun, [facility] [address] [id number] [place] [address]- 0103 Jun, [facility] [place] [facility] [address] [id number] [place] [address]- 5999 Jun, [facility] [address] [facility] [id number] [place] [address]- 4751 Jun, [facility] [place] [facility] [address] [id number] [place] [address]- 9256 Jun, [facility] [place] [facility] [address] [id number] [place] [address]- 8348 Jun, [facility] [place] [facility] [address] [id number] [place] [address]- 7646 Jun, [facility] [place] [facility] [address] [id number] [place] [address]- 0021 May, [facility] [place] [facility] [address] [id number] [place] [address]- 4991 May, [facility] [place] [facility] [address] [id number] [place] [address]- 0149 May, [facility] [place] [facility] [address] [id number] [place] [address]- 6343 May, [facility] [place] [facility] [address] [id number] [place] [address]- 0719 May, [facility] [place] [facility] [address] [id number] [place] [address]- 9562 Apr, [facility] [place] [facility] [address] [id number] [place] [address]- 4169 Apr, [facility] [place] [facility] [address] [id number] [place] [address]- 5962 Apr, [facility] [place] [facility] [address] [id number] [place] [address]- 9855 Apr, [facility] [place] [facility] [address] [id number] [place] [address]- 8539 Apr, [facility] [place] [facility] [address] [id number] [place] [address]- 9927 25 Mar, 2012 [facility] [place] [facility] [address] [id number] [place] [address]- 2150 20 Mar, 2012 [facility] [place] [facility] [address] [id number] [place] [address]- 7141 12 Mar, 2012 [facility] [place] [facility] [address] [id number] [address]- 1216 07 Sep2011 [facility] [place] [facility] [address] [id number] [place] [address]- 9489 06 Mar, 2012 [facility] [place] [facility] [address] [id number] [place] [address]- 2271 05 Mar, 2012 [facility] [place] [facility] [address] [id number] [place] [address]- 6027 Feb, [facility] [place] [facility] [address] [id number] [address]- 6504 Feb, [facility] [place] [facility] [address] [id number] [place] [address]- 9508 Feb, [facility] [place] [facility] [address] [id number] [place] [address]- 8403 Feb, [facility] [place] [facility] [address] [id number] [place] [address]- 5583 Feb, [facility] [place] [facility] [address] [id number] [place] [address]- 0114 Jan, [facility] [place] [facility] [address] [id number] [place] [address]- 5255 Jan, [facility] [place] [facility] [address] [id number] [place] [address]- 0532 Jan, [facility] [place] [facility] [address] [id number] [place] [address]- 8362 Jan, [facility] [place] [facility] [address] [id number] [place] [address]- 2898 Jan, [facility] [place] [facility] [address] [id number] [place] [address]- 2465 Jan, [facility] [place] [facility] [address] [id number] [place] [address]- 3117 Dec, [facility] [place] [facility] [address] [id number] [place] [address]- 2505 Dec, [facility] [place] [facility] [address] [id number] [place] [address]- 4253 Dec, [facility] [place] [facility] [address] [id number] [place] [address]- 3946 Dec, [facility] [place] [facility] [address] [id number] [place] [address]- 4932 Dec, [facility] [place] [facility] [address] [id number] [place] [address]- 3758 Dec, [facility] [place] [facility] [address] [id number] [place] [address] 2541 Dec, [facility] [address] [id number] [place] [address]- 8495 November, [facility] [place] [facility] [address] [id number] [place] [address] 2546 November, [facility] [address] [id number] [place] [address]- 1186 November, [facility] [address] [id number] [place] [address]- 5957 Oct, [facility] [address] [id number] [place] [address]- 5811 Oct, [facility] [address] [id number] [place] [address]- 9441 Oct, [facility] [address] [id number] [place] [address]- 2484 Sep, [facility] [address] [id number] [place] [address]- 7226 Sep, [facility] [place] [facility] [address] [id number] [place] [address]- 8839 Sep, [facility] [address] [id number] [place] [address]- 3272 Sep, [facility] [place] [facility] [address] [id number] [place] [address]- 7776 Sep, [facility] [place] [facility] [address] [id number] [place] [address]- 4423 Aug, [facility] [place] [facility] [address] [id number] [place] [address]- 4436 Aug, [facility] [place] [facility] [address] [id number] [place] [address]- 3666 Aug, [facility] [place] [facility] [address] [id number] [place] [address]- 1035 03 Aug, 2011 [facility] [address] [id number] [place] [address]- 5874 30 Jul, 2011 [facility] [place] [facility] [address] [id number] [place] [address]- 0776 29 Jul, 2011 [facility] [place] [facility] [address] [facility] [id number] [place] [address]- 0041 Jul, [facility] [place] [facility] [address] [id number] [place] [address]- 1187 Jul, [facility] [place] [facility] [address] [id number] [place] [address]- 5386 Jul, [facility] [place] [facility] [address] [id number] [place] [address]- 4236 Jul, [facility] [place] [facility] [address] [id number] [place] [address]- 7845 Jul, [facility] [place] [facility] [address] [id number] [place] [address]- 1411 Jul, [facility] [place] [facility] [address] [id number] [place] [address]- 1699 16 Jun, 2011 [facility] [place] [facility] [address] [facility] [id number] [place] [address]- 2847 13 Jun, 2011 [facility] [place] [facility] [address] [id number] [place] [address]- 8069 12 Jun, 2011 [facility] [place] [facility] [address] [id number] [place] [address] 2540 06 Jun, 2011 [facility] [place] [facility] [address] [id number] [place] [address] 14 May, 2011 [facility] [place] [facility] [address] [id number] [place] [address] 31 Apr, 2011 [facility] [place] [facility] [address] [id number] [place] [address] 13 Mar, 2011 [facility] [place] [facility] [id number] [address] 16 Dec, 2010 [facility] [address] [facility] [id number] [place] [address] 10 Aug, 2010 [facility] [address] [facility] [id number] [place] [address] Jul, [facility] [id number] [address] Sep, [facility] [address] [facility] [id number] [place] [address] Jul, [facility] [id number] [address] 14 Jun, 2009 [facility] [address] [id number] [address] Jun, [facility] [id number] [address] May, [facility] [id number] [address] 15 Apr, 2009 [facility] [id number] [address] Apr, [facility] [id number] [address] Apr, [facility] [address] [id number] [address] Feb, [facility] [address] [id number] [address] Feb, [facility] [address] [id number] [address] 15 Jan, 2009 [facility] [id number] [address] November, IMMUNIZATIONS No Known Immunizations SOCIAL HISTORY Never Assessed REASON FOR VISIT BRIAN Guadalupe from [facility] ER Callled to schedule, patient has fracture of molar along the gumline and inflamation, and they were calling to get on the schedule for Saturday. Has been on Antibiotic since .-venkata. PLAN OF CARE Activity Details Follow Up prn Reason:as needed VITAL SIGNS Height 64 in 2018-04-04 Blood pressure systolic 126 mmHg 2018-04-04 Blood pressure diastolic 81 mmHg 2018-04-04 MEDICATIONS Medication Instructions Dosage Frequency Start Date End Date Duration Status Flexeril Not-Taking Neurontin 600 MG Orally Once a day 1 tablet before bedtime 24h Feb, 30 days Not-Taking Clindamycin HCl 150 mg Orally every 6 hrs 2 capsules 6h Mar, 7 days Active Amitriptyline HCl 25 MG Orally Once a day 1 tablet 24h Sep, 30 day(s) Not-Taking Ibuprofen 800 MG Orally Three times a day 1 tablet with food or milk as needed 8h Not-Taking One Daily Not-Taking Hydrocodone-Acetaminophen 5-325 mg Orally every 8-12 hrs 1 tablet as needed Oct, Active RESULTS No Results PROCEDURES Procedure Date Ordered Result Body Site LTD ORAL EVALUATION - PROBLEM FOCUS Apr 04, 2018 INTRAORL-PERIAPICAL 1 FILM 89120 Apr 04, 2018 BITEWING - SINGLE FILM Apr 04, 2018 INSTRUCTIONS MEDICATIONS ADMINISTERED No Known Medications MEDICAL (GENERAL) HISTORY Type Description Date Medical History Arthritis Surgical History cholecystectomy Surgical History wisdom teeth extraction Surgical History Partial hysterectomy 2018 Hospitalization History child Hospitalization History colitis
--- OUTSIDE RECORDS SUMMARY | 2018-06-14 20:50 | XMS REPORT ---
Author Author LESLIE CELE [facility] Address [address] [place] [address] Care Team Providers Care Assistance Representative Name Role Phone LESLIEALBERTOCELE Unavailable PROBLEMS Type Condition ICD9-CM Code NBB10-WO Code Onset Dates Condition Status SNOMED Code Problem Menstrual migraine without status migrainosus, not intractable G43.829 Active 19246993 Problem Vaginal bleeding N93.9 Active 292604822 Problem Other chronic pain G89.29 Active 58837754 Problem Insomnia, unspecified type G47.00 Active 486203334 Problem History of anxiety Z86.59 Active 450338051 Problem Difficulty of mother performing R63.3 Active 162514645 Problem Rheumatoid arthritis with positive rheumatoid factor, involving unspecified site M05.9 Active [id number] ALLERGIES No Information ENCOUNTERS Encounter Location Date Diagnosis [place] [id number] [place] [address] 47466- 1660 Jun, [place] [id number] [place] [address] 34173- 0301 Jan, [facility] [id number] [place] [address] 90910- 5799 Jan, [facility] [id number] [place] [address] 24007- 1534 Jan, [facility] [id number] [place] [address] 40880- 2936 Jan, [facility] [id number] [place] [address] 58882- 5984 Dec, Pelvic pain R10.2 and Vaginal bleeding N93.9 [facility] [id number] [place] [address] 06954- 5512 Dec, [place] [id number] [address] 5655 Dec, [place] [id number] [place] [address] 90064- 9928 Dec, Screening, deficiency anemia, iron Z13.0 [place] [id number] [place] [address] 43394- 8007 Oct, Rheumatoid arthritis with positive rheumatoid factor, involving unspecified site M05.9 [place] [id number] [place] [address] 58067- 0690 Oct, Rheumatoid arthritis with positive rheumatoid factor, involving unspecified site M05.9 [place] [id number] [place] [address] 13961- 1118 Oct, Closed nondisplaced fracture of third metatarsal bone of right foot with routine healing, subsequent encounter S92.334D ; Closed nondisplaced fracture of second metatarsal bone of right foot with routine healing, subsequent encounter S92.324D ; Closed nondisplaced fracture of phalanx of left great toe with routine healing, unspecified phalanx, subsequent encounter S92.405D and Other chronic pain G89.29 [place] [id number] [place] [address] 19297- 5980 17 Oct, 2017 Closed nondisplaced fracture of [...] factor, involving unspecified site M05.9 [place] [id number] [place] [address] 94595- 3339 Oct, [place] [id number] [place] [address] 87021- 6371 Oct, Injury of finger of right hand, initial encounter S69.91XA and Closed displaced fracture of distal phalanx of right middle finger, initial encounter S62.632A [place] [id number] [place] [address] 37928- 9560 Sep, Mastitis N61.0 and MRSA (methicillin resistant staph aureus ) culture positive Z22.322 [place] [id number] [place] [address] 53848- 8364 Sep, [facility] [id number] [place] [address] 51025- 9408 Sep, Difficulty of mother performing R63.3 [place] [id number] [place] [address] 25015- 5543 Sep, Acute mastitis of left breast N61.0 [facility] [id number] [place] [address] 26372 -5362 Sep, Abscess L02.91 [place] [id number] [place] [address] 39020- 5570 Sep, [place] [id number] [place] [address] 10642- 2144 Jun, [place] [id number] [place] [address] 76383- 0117 05 Jun, 2017 care, subsequent in second trimester Z34.82 ; Placenta previa in second trimester O44.02 ; Abnormal quad screen O28.0 ; History of delivery, currently O09.219 and 24 weeks gestation of Z3A.24 [place] [id number] [address]- 5894 16 May, 2017 Dental examination Z01.20 [place] [id number] [place] [address] 49770- 4519 08 May, 2017 History of delivery, currently O09.219 [place] [id number] [place] [address] 74601- 8835 07 May, 2017 [place] [id number] [place] [address] 05774- 1494 May, 20 weeks gestation of Z3A.20 ; care, subsequent in second trimester Z34.82 ; History of delivery, currently O09.219 and Abnormal quad screen O28.0 [place] [id number] [place] [address] 47407- 9597 Apr, Elevated blood sugar level R73.9 and Glucosuria R81 [place] [id number] [place] [address] 85949- 1016 Apr, Elevated blood sugar level R73.9 and Glucosuria R[address] 62759- 9217 Apr, Elevated blood sugar level R73.9 [place] [id number] [place] [address] 25983- 4740 Apr, [place] [id number] [place] [address] 69408- 5312 Apr, 16 weeks gestation of Z3A.16 ; care, subsequent in second trimester Z34.82 ; Encounter for immunization Z23 and Glucosuria R81 [place] [id number] [place] [address] 49119- 3841 Mar, 12 weeks gestation of Z3A.12 [place] [id number] [place] [address] 83460- 1632 Feb, [place] [id number] [place] [address] 83210- 8310 Feb, care, subsequent in first trimester Z34.81 and 8 weeks gestation of Z3A.08 [place] [id number] [place] [address] 47290- 3159 Jan, [place] [id number] [place] [address] 00847- 4898 Jul, Encounter for test, result unknown Z32.00 [place] [id number] [place] [address] 63297- 6762 Jun, control counseling Z30.9 and Insomnia, unspecified type G47.00 [place] [id number] [place] [address] 98423- 7878 Sep, Encounter for test Z32.00 [place] [address] 18733- 7918 Jul, [place] [address] 45043- 9004 Jul, Well woman exam Z01.419 ; Encounter for screening for malignant neoplasm of cervix Z12.4 ; Vaginal discharge N89.8 ; Routine screening for STI (sexually transmitted infection) Z11.3 ; Encounter for prescription for transdermal contraceptive Z30.49 ; Nausea with vomiting, unspecified R11.2 ; Menstrual migraine without status migrainosus, not intractable G43.829 and History of anxiety Z86.59 [place] [address] 93073- 1833 Jun, Encounter for surveillance of transdermal contraceptive Z30.49 and Sauceda F48.9 [place] [id number] [place] [address] 32054- 3949 Oct, [place] [id number] [place] [address] 67445- 8557 Oct, [place] [id number] [place] [address] 48284- 4164 Jul, [place] [id number] [place] [address] 53206- 1204 Jul, [place] [address] 95735- 2077 Jul, [place] [id number] [place] [address] 02133- 3662 Jul, [place] [address] 75380- 7490 Jul, [facility] [place] [facility] [address] [id number] [place] [address]- 8117 Jul, [facility] [place] [facility] [address] [id number] [place] [address]- 2224 Jun, [facility] [place] [facility] [address] [id number] [place] 6237 Jun, [facility] [place] [facility] [address] [id number] [place] [address]- 6004 May, [facility] [place] [facility] [address] [id number] [place] [address]- 7682 May, [facility] [place] [facility] [address] [id number] [place] [address]- 6220 May, [facility] [place] [facility] [address] [id number] [place] [address]- 1715 May, [facility] [place] [facility] [address] [id number] [place] [address]- 7065 Feb, [facility] [place] [facility] [address] [id number] [place] [address]- 6448 Feb, [facility] [place] [facility] [address] [id number] [place] [address]- 9961 Feb, [facility] [place] [facility] [address] [id number] [place] [address]- 0318 Feb, [facility] [place] [facility] [address] [id number] [place] [address]- 1863 Oct, [facility] [place] [facility] [address] [id number] [place] [address]- 5595 Oct, [facility] [place] [facility] [address] [id number] [place] [address]- 6661 Sep, [facility] [place] [facility] [address] [id number] [place] [address]- 5413 Sep, [facility] [place] [facility] [address] [id number] [place] [address] 2549 Sep, [facility] [address] [id number] [place] [address]- 9038 Sep, [facility] [place] [facility] [address] [id number] [place] [address]- 3116 Aug, [facility] [place] [facility] [address] [id number] [place] [address]- 8546 Aug, [facility] [place] [facility] [address] [id number] [place] [address]- 9523 Jul, [facility] [place] [facility] [address] [id number] [place] [address]- 5709 Jul, [facility] [place] [facility] [address] [id number] [place] [address]- 5245 Jun, [facility] [place] [facility] [address] [id number] [place] [address]- 7939 Jun, [facility] [address] [id number] [place] [address]- 0906 Jun, [facility] [place] [facility] [address] [id number] [place] [address]- 2525 Jun, [facility] [address] [facility] [id number] [place] [address]- 7077 Jun, [facility] [place] [facility] [address] [id number] [place] [address]- 3378 May, [facility] [place] [facility] [address] [id number] [place] [address]- 8062 May, [facility] [place] [facility] [address] [id number] [place] [address]- 0194 May, [facility] [place] [facility] [address] [id number] [place] [address]- 2646 May, [facility] [place] [facility] [address] [id number] [place] [address]- 4183 Apr, [facility] [place] [facility] [address] [id number] [place] [address]- 9886 Apr, [facility] [place] [facility] [address] [id number] [place] [address]- 1325 Apr, [facility] [place] [facility] [address] [id number] [place] [address]- 1278 Feb, [facility] [place] [facility] [address] [id number] [place] [address]- 8777 Jan, [facility] [place] [facility] [address] [id number] [place] [address]- 7216 Aug, [facility] [place] [facility] [address] [id number] [place] [address]- 5663 Aug, [facility] [place] [facility] [address] [id number] [place] [address]- 4317 Aug, [facility] [place] [facility] [address] [id number] [place] [address]- 1865 Aug, [facility] [place] [facility] [address] [id number] [place] [address]- 7831 Aug, [facility] [place] [facility] [address] [id number] [place] [address]- 8360 Aug, [facility] [place] [facility] [address] [id number] [place] [address]- 4264 Jul, [facility] [place] [facility] [address] [id number] [place] [address]- 9918 Jul, [facility] [place] [facility] [address] [id number] [place] [address]- 1180 Jul, [facility] [place] [facility] [address] [id number] [place] [address]- 5741 Jul, [facility] [place] [facility] [address] [id number] [place] [address]- 0926 16 Jul, 2012 [facility] [place] [facility] [address] [id number] [place] [address]- 2569 Jul, [facility] [address] [id number] [place] [address]- 9415 Jul, [facility] [address] [id number] [place] [address]- 7850 Jun, [facility] [address] [id number] [place] [address]- 8924 Jun, [facility] [address] [id number] [place] [address]- 0263 Jun, [facility] [address] [id number] [place] [address]- 0327 Jun, [facility] [address] [id number] [place] [address]- 1564 Jun, [facility] [address] [id number] [place] [address]- 5022 Jun, [facility] [address] [id number] [place] [address]- 7658 Jun, [facility] [address] [id number] [place] [address]- 6910 Jun, [facility] [address] [id number] [place] [address]- 4459 Jun, [facility] [address] [id number] [place] [address]- 3829 Jun, [facility] [address] [id number] [place] [address]- 4071 May, [facility] [place] [facility] [address] [id number] [place] [address]- 0738 May, [facility] [place] [facility] [address] [id number] [place] [address]- 6026 May, [facility] [address] [id number] [place] [address]- 0340 May, [facility] [place] [facility] [address] [id number] [place] [address]- 8426 May, [facility] [place] [facility] [address] [id number] [place] [address]- 3868 Apr, [facility] [place] [facility] [address] [id number] [place] 4973 Apr, [facility] [place] [facility] [address] [id number] [place] [address]- 5188 Apr, [facility] [place] [facility] [address] [id number] [place] [address]- 7759 Apr, [facility] [place] [facility] [address] [id number] [place] [address]- 6094 Apr, [facility] [place] [facility] [address] [id number] [place] [address]- 3439 25 Mar, 2012 [facility] [place] [facility] [address] [id number] [place] [address]- 4280 20 Mar, 2012 [facility] [place] [facility] [address] [id number] [place] [address]- 4689 12 Mar, 2012 [facility] [place] [facility] [address] [id number] [address]- 7674 07 Mar, 2012 [facility] [place] [facility] [address] [id number] [address]- 5439 06 Mar, 2012 [facility] [place] [facility] [address] [id number] [address]- 1595 05 Mar, 2012 [facility] [place] [facility] [address] [id number] [place] [address]- 5270 Feb, [facility] [place] [facility] [address] [id number] [address]- 8992 Feb, [facility] [place] [facility] [address] [id number] [address]- 4130 Feb, [facility] [place] [facility] [address] [id number] [address]- 9151 Feb, [facility] [place] [facility] [address] [id number] [place] [address]- 6139 Feb, [facility] [place] [facility] [address] [id number] [place] [address]- 5645 Jan, [facility] [place] [facility] [address] [id number] [place] [address]- 6445 Jan, [facility] [place] [facility] [address] [id number] [place] [address]- 3081 Jan, [facility] [place] [facility] [address] [id number] [place] [address]- 8850 Jan, [facility] [place] [facility] [address] [id number] [place] [address]- 4640 Jan, [facility] [place] [facility] [address] [id number] [place] [address]- 5873 Jan, [facility] [place] [facility] [address] [id number] [place] [address]- 7649 Dec, [facility] [place] [facility] [address] [id number] [place] [address]- 4100 Dec, [facility] [place] [facility] [address] [facility] [id number] [place] [address]- 3331 Dec, [facility] [place] [facility] [address] [id number] [place] [address]- 3626 Dec, [facility] [place] [facility] [address] [id number] [place] [address]- 9737 Dec, [facility] [place] [facility] [address] [id number] [place] [address]- 2767 Dec, [facility] [place] [facility] [address] [facility] [id number] [place] [address]- 8957 Dec, [facility] [place] [facility] [address] [facility] [id number] [place] [address]- 8774 November, [facility] [place] [facility] [address] [id number] [place] [address]- 9024 November, [facility] [place] [facility] [address] [id number] [place] [address]- 7301 November, [facility] [place] [facility] [address] [id number] [place] [address]- 8062 Oct, [facility] [place] [facility] [address] [id number] [place] [address]- 9422 Oct, [facility] [place] [facility] [address] [id number] [place] [address]- 6832 Oct, [facility] [place] [facility] [address] [id number] [place] [address]- 8093 Sep, [facility] [place] [facility] [address] [id number] [place] [address]- 0471 Sep, [facility] [place] [facility] [address] [id number] [place] [address]- 4721 Sep, [facility] [place] [facility] [address] [id number] [place] [address]- 1547 Sep, [facility] [place] [facility] [address] [id number] [place] [address]- 0210 Sep, [facility] [place] [facility] [address] [id number] [place] [address]- 7460 Aug, [facility] [place] [facility] [address] [id number] [place] [address]- 5403 Aug, [facility] [place] [facility] [address] [id number] [place] [address]- 0163 Aug, [facility] [place] [facility] [address] [id number] [place] [address]- 3871 Aug, [facility] [place] [facility] [address] [id number] [place] [address]- 3703 Jul, [facility] [place] [facility] [address] [id number] [place] [address]- 4748 29 Jul, 2011 [facility] [place] [facility] [address] [id number] [place] [address]- 5881 Jul, [facility] [place] [facility] [address] [id number] [place] [address]- 7096 Jul, [facility] [place] [facility] [address] [id number] [place] [address]- 7653 18 Jul, 2011 [facility] [place] [facility] [address] [id number] [place] [address]- 6794 Jul, [facility] [place] [facility] [address] [id number] [place] [address]- 4974 Jul, [facility] [place] [facility] [address] [id number] [place] [address]- 8545 10 Jul, 2011 [facility] [place] [facility] [address] [id number] [place] [address]- 5190 16 Jun, 2011 [facility] [place] [facility] [address] [id number] [place] [address]- 9465 13 Jun, 2011 [facility] [place] [facility] [address] [id number] [place] [address]- 1944 12 Jun, 2011 [facility] [place] [facility] [address] [id number] [place] [address]- 6055 06 Jun, 2011 [facility] [place] [facility] [address] [id number] [address]- 1948 14 May, 2011 [facility] [place] [facility] [address] [id number] [place] [address]- 3894 31 Apr, 2011 [facility] [place] [facility] [address] [id number] [place] [address]- 4721 13 Mar, 2011 [facility] [place] [facility] [address] [id number] [place] [address]- 4913 16 Dec, 2010 [facility] [place] [facility] [address] [id number] [place] [address]- 6164 10 Aug, 2010 [facility] [place] [facility] [id number] [address] 11 Jul, 2010 [facility] [id number] [address] Sep, [facility] [id number] [address] Jul, [facility] [id number] [address] 14 Jun, 2009 [facility] [id number] [address] Jun, [facility] [id number] [place] [address] May, [facility] [id number] [address] Apr, [facility] [id number] [address] Apr, [facility] [id number] [address] Apr, [facility] [id number] [address] Feb, [facility] [id number] [address] Feb, [facility] [id number] [address] Jan, [facility] [id number] [address] November, IMMUNIZATIONS No Known Immunizations SOCIAL HISTORY Never Assessed REASON FOR VISIT Ultrasound appt PLAN OF CARE VITAL SIGNS MEDICATIONS Unknown Medications RESULTS No Results PROCEDURES No Known procedures INSTRUCTIONS MEDICATIONS ADMINISTERED No Known Medications MEDICAL (GENERAL) HISTORY Type Description Date Medical History Arthritis Surgical History cholecystectomy Surgical History wisdom teeth extraction Surgical History Partial hysterectomy 2018 Hospitalization History child Hospitalization History colitis
--- OUTSIDE RECORDS SUMMARY | 2018-06-14 20:50 | XMS REPORT ---
Author Author LESLIE CELE [facility] Address [address] [place] [address] Care Team Providers Care Sales Strategy Manager Name Role Phone LESLIEALBERTO REIDHANY Unavailable PROBLEMS Type Condition ICD9-CM Code LYQ82-FK Code Onset Dates Condition Status SNOMED Code Problem Menstrual migraine without status migrainosus, not intractable G43.829 Active 79956570 Problem Vaginal bleeding N93.9 Active 714712714 Problem Other chronic pain G89.29 Active 00813834 Problem Insomnia, unspecified type G47.00 Active 711671707 Problem History of anxiety Z86.59 Active 575887648 Problem Difficulty of mother performing R63.3 Active 094484577 Problem Rheumatoid arthritis with positive rheumatoid factor, involving unspecified site M05.9 Active [id number] ALLERGIES No Information ENCOUNTERS Encounter Location Date Diagnosis [facility] [id number] [place] [address] 17698- 4668 Jun, [facility] [id number] [place] [address] 61172- 2247 Jan, [facility] [place] [id number] [place] [address] 29729- 6926 Jan, [facility] [place] [id number] [place] [address] 02304- 4218 Jan, [facility] [place] [id number] [place] [address] 77677- 4586 Jan, [facility] [place] [id number] [place] [address] 19194- 4913 Dec, Pelvic pain R10.2 and Vaginal bleeding N93.9 [facility] [place] [id number] [place] [address] 65961- 0656 Dec, [facility] [address] [address] 5514 Dec, [facility] [id number] [place] [address] 01445- 3158 Dec, Screening, deficiency anemia, iron Z13.0 [place] [id number] [place] [address] 87997- 2778 Oct, Rheumatoid arthritis with positive rheumatoid factor, involving unspecified site M05.9 [facility] [id number] [place] [address] 21982- 5819 Oct, Rheumatoid arthritis with positive rheumatoid factor, involving unspecified site M05.9 [place] [id number] [place] [address] 32349- 9639 Oct, Closed nondisplaced fracture of third metatarsal bone of right foot with routine healing, subsequent encounter S92.334D ; Closed nondisplaced fracture of second metatarsal bone of right foot with routine healing, subsequent encounter S92.324D ; Closed nondisplaced fracture of phalanx of left great toe with routine healing, unspecified phalanx, subsequent encounter S92.405D and Other chronic pain G89.29 [place] [id number] [place] [address] 67894- 3296 17 Oct, 2017 Closed nondisplaced fracture of [...] positive rheumatoid factor, involving unspecified site M05.9 [place] [id number] [place] [address] 61867- 8707 Oct, [place] [id number] [place] [address] 02234- 2901 Oct, Injury of finger of right hand, initial encounter S69.91XA and Closed displaced fracture of distal phalanx of right middle finger, initial encounter S62.632A [facility] [id number] [place] [address] 63184- 3716 Sep, Mastitis N61.0 and MRSA (methicillin resistant staph aureus ) culture positive Z22.322 [facility] [id number] [place] [address] 58519- 2965 Sep, [facility] [place] [id number] [place] [address] 16763- 8767 Sep, Difficulty of mother performing R63.3 [place] [id number] [place] [address] 20690- 0808 Sep, Acute mastitis of left breast N61.0 [facility] [id number] [place] [address] 82394 -0905 Sep, Abscess L02.91 [place] [id number] [place] [address] 73336- 9813 Sep, [place] [id number] [place] [address] 67226- 5020 Jun, [facility] [id number] [place] [address] 05334- 7221 05 Jun, 2017 care, subsequent in second trimester Z34.82 ; Placenta previa in second trimester O44.02 ; Abnormal quad screen O28.0 ; History of delivery, currently O09.219 and 24 weeks gestation of Z3A.24 [facility] [address] [address]- 0650 16 May, 2017 Dental examination Z01.20 [facility] [id number] [place] [address] 38135- 8831 08 May, 2017 History of delivery, currently O09.219 [place] [id number] [place] [address] 27826- 9339 07 May, 2017 [place] [id number] [place] [address] 12579- 1462 May, 20 weeks gestation of Z3A.20 ; care, subsequent in second trimester Z34.82 ; History of delivery, currently O09.219 and Abnormal quad screen O28.0 [facility] [id number] [place] [address] 17373- 4412 Apr, Elevated blood sugar level R73.9 and Glucosuria R81 [facility] [id number] [place] [address] 57678- 8929 Apr, Elevated blood sugar level R73.9 and Glucosuria R81 [address] 32540- 7191 Apr, Elevated blood sugar level R73.9 [place] [id number] [place] [address] 87518- 1551 Apr, [place] [id number] [place] [address] 62862- 6513 Apr, 16 weeks gestation of Z3A.16 ; care, subsequent in second trimester Z34.82 ; Encounter for immunization Z23 and Glucosuria R81 [place] [id number] [place] [address] 66960- 2756 Mar, 12 weeks gestation of Z3A.12 [place] [id number] [place] [address] 82762- 0253 Feb, [place] [id number] [place] [address] 23918- 7368 Feb, care, subsequent in first trimester Z34.81 and 8 weeks gestation of Z3A.08 [place] [id number] [place] [address] 31685- 2814 Jan, [place] [id number] [place] [address] 90902- 1239 Jul, Encounter for test, result unknown Z32.00 [place] [id number] [place] [address] 15401- 6391 Jun, control counseling Z30.9 and Insomnia, unspecified type G47.00 [place] [id number] [place] [address] 58406- 2643 Sep, Encounter for test Z32.00 [place] [address] 09054- 6652 Jul, [place] [address] 96582- 0949 Jul, Well woman exam Z01.419 ; Encounter for screening for malignant neoplasm of cervix Z12.4 ; Vaginal discharge N89.8 ; Routine screening for STI (sexually transmitted infection) Z11.3 ; Encounter for prescription for transdermal contraceptive Z30.49 ; Nausea with vomiting, unspecified R11.2 ; Menstrual migraine without status migrainosus, not intractable G43.829 and History of anxiety Z86.59 [place] [address] 51939- 3480 Jun, Encounter for surveillance of transdermal contraceptive Z30.49 and Sauceda F48.9 [place] [id number] [place] [address] 66355- 5498 Oct, [place] [id number] [place] [address] 72307- 5335 Oct, [place] [id number] [place] [address] 62488- 5100 Jul, [place] [id number] [place] [address] 11853- 4469 Jul, [place] [address] 86988- 3926 Jul, [place] [id number] [place] [address] 77842- 3210 Jul, [place] [address] 54905- 9930 Jul, [facility] [place] [facility] [address] [id number] [place] [address]- 1164 Jul, [facility] [place] [facility] [address] [id number] [place] [address]- 6509 Jun, [facility] [place] [facility] [address] [id number] [place] 4022 Jun, [facility] [place] [facility] [address] [id number] [place] [address]- 2949 May, [facility] [place] [facility] [address] [id number] [place] [address]- 5083 May, [facility] [place] [facility] [address] [id number] [place] [address]- 1139 May, [facility] [place] [facility] [address] [id number] [place] [address]- 3811 May, [facility] [place] [facility] [address] [id number] [place] [address]- 6125 Feb, [facility] [place] [facility] [address] [id number] [place] [address]- 4549 Feb, [facility] [place] [facility] [address] [id number] [place] [address]- 1436 Feb, [facility] [place] [facility] [address] [id number] [place] [address]- 4829 Feb, [facility] [place] [facility] [address] [id number] [place] [address]- 0844 Oct, [facility] [place] [facility] [address] [id number] [place] [address]- 0651 Oct, [facility] [place] [facility] [address] [id number] [place] [address]- 9046 Sep, [facility] [place] [facility] [address] [id number] [place] [address]- 4414 Sep, [facility] [place] [facility] [address] [id number] [place] [address] 254 Sep, [facility] [address] [id number] [place] [address]- 0592 Sep, [facility] [place] [facility] [address] [id number] [place] [address]- 6066 Aug, [facility] [place] [facility] [address] [id number] [place] [address]- 9106 Aug, [facility] [place] [facility] [address] [id number] [place] [address]- 7599 Jul, [facility] [place] [facility] [address] [id number] [place] [address]- 7459 Jul, [facility] [place] [facility] [address] [id number] [place] [address]- 1742 Jun, [facility] [place] [facility] [address] [id number] [place] [address]- 3619 Jun, [facility] [address] [id number] [place] [address]- 7166 Jun, [facility] [place] [facility] [address] [id number] [place] [address]- 4146 Jun, [facility] [address] [facility] [id number] [place] [address]- 7296 Jun, [facility] [place] [facility] [address] [id number] [place] [address]- 9273 May, [facility] [place] [facility] [address] [id number] [place] [address]- 5848 May, [facility] [place] [facility] [address] [id number] [place] [address]- 1307 May, [facility] [place] [facility] [address] [id number] [place] [address]- 6546 May, [facility] [place] [facility] [address] [id number] [place] [address]- 6160 Apr, [facility] [place] [facility] [address] [id number] [place] [address]- 7563 Apr, [facility] [place] [facility] [address] [id number] [place] [address]- 0718 Apr, [facility] [place] [facility] [address] [id number] [place] [address]- 5203 Feb, [facility] [place] [facility] [address] [id number] [place] [address]- 5326 Jan, [facility] [place] [facility] [address] [id number] [place] [address]- 5430 Aug, [facility] [place] [facility] [address] [id number] [place] [address]- 7637 Aug, [facility] [place] [facility] [address] [id number] [place] [address]- 4528 Aug, [facility] [place] [facility] [address] [id number] [place] [address]- 2086 Aug, [facility] [place] [facility] [address] [id number] [place] [address]- 5575 Aug, [facility] [place] [facility] [address] [id number] [place] [address]- 5691 Aug, [facility] [place] [facility] [address] [id number] [place] [address]- 2269 Jul, [facility] [place] [facility] [address] [id number] [place] [address]- 4800 Jul, [facility] [place] [facility] [address] [id number] [place] [address]- 0286 Jul, [facility] [place] [facility] [address] [id number] [place] [address]- 4798 Jul, [facility] [place] [facility] [address] [id number] [place] [address]- 8543 16 Jul, 2012 [facility] [place] [facility] [address] [id number] [place] [address]- 5858 Jul, [facility] [address] [id number] [place] [address]- 1551 Jul, [facility] [address] [id number] [place] [address]- 2167 Jun, [facility] [address] [id number] [place] [address]- 6765 Jun, [facility] [address] [id number] [place] [address]- 8396 Jun, [facility] [address] [id number] [place] [address]- 7721 Jun, [facility] [address] [id number] [place] [address]- 0167 Jun, [facility] [address] [id number] [place] [address]- 6869 Jun, [facility] [address] [id number] [place] [address]- 0693 Jun, [facility] [address] [id number] [place] [address]- 4122 Jun, [facility] [address] [id number] [place] [address]- 9703 Jun, [facility] [address] [id number] [place] [address]- 6266 Jun, [facility] [address] [id number] [place] [address]- 5701 May, [facility] [place] [facility] [address] [id number] [place] [address]- 4340 May, [facility] [place] [facility] [address] [id number] [place] [address]- 1416 May, [facility] [address] [id number] [place] [address]- 0102 May, [facility] [place] [facility] [address] [id number] [place] [address]- 6447 May, [facility] [place] [facility] [address] [id number] [place] [address]- 2617 Apr, [facility] [place] [facility] [address] [id number] [place] 9402 Apr, [facility] [place] [facility] [address] [id number] [place] [address]- 9563 Apr, [facility] [place] [facility] [address] [id number] [place] [address]- 6870 Apr, [facility] [place] [facility] [address] [id number] [place] [address]- 5211 Apr, [facility] [place] [facility] [address] [id number] [place] [address]- 5719 25 Mar, 2012 [facility] [place] [facility] [address] [id number] [place] [address]- 1362 20 Mar, 2012 [facility] [place] [facility] [address] [id number] [place] [address]- 3480 12 Mar, 2012 [facility] [place] [facility] [address] [id number], [place] [address]- 1747 07 Mar, 2012 [facility] [place] [facility] [address] [id number], [place] [address]- 8866 06 Mar, 2012 [facility] [place] [facility] [address] [id number], [place] [address]- 3166 05 Mar, 2012 [facility] [place] [facility] [address] [id number] [place] [address]- 2181 Feb, [facility] [place] [facility] [address] [id number], [place] [address]- 3386 Feb, [facility] [place] [facility] [address] [id number], [place] [address]- 0926 Feb, [facility] [place] [facility] [address] [id number], [place] [address]- 0434 Feb, [facility] [place] [facility] [address] [id number] [place] [address]- 2420 Feb, [facility] [place] [facility] [address] [id number] [place] [address]- 6081 Jan, [facility] [place] [facility] [address] [id number] [place] [address]- 8954 Jan, [facility] [place] [facility] [address] [id number] [place] [address]- 5068 Jan, [facility] [place] [facility] [address] [id number] [place] [address]- 8968 Jan, [facility] [place] [facility] [address] [id number] [place] [address]- 9378 Jan, [facility] [place] [facility] [address] [id number] [place] [address]- 7415 Jan, [facility] [place] [facility] [address] [id number] [place] [address]- 2354 Dec, [facility] [place] [facility] [address] [id number] [place] [address]- 9199 Dec, [facility] [place] [facility] [address] [facility] [id number] [place] [address]- 0049 Dec, [facility] [place] [facility] [address] [id number] [place] [address]- 8777 Dec, [facility] [place] [facility] [address] [id number] [place] [address]- 6335 Dec, [facility] [place] [facility] [address] [id number] [place] [address]- 0964 Dec, [facility] [place] [facility] [address] [facility] [id number] [place] [address]- 4594 Dec, [facility] [place] [facility] [address] [facility] [id number] [place] [address]- 3238 November, [facility] [place] [facility] [address] [id number] [place] [address]- 5785 November, [facility] [place] [facility] [address] [id number] [place] [address]- 4149 November, [facility] [place] [facility] [address] [id number] [place] [address]- 9423 Oct, [facility] [place] [facility] [address] [id number] [place] [address]- 0238 Oct, [facility] [place] [facility] [address] [id number] [place] [address]- 8868 Oct, [facility] [place] [facility] [address] [id number] [place] [address]- 7761 Sep, [facility] [place] [facility] [address] [id number] [place] [address]- 5097 Sep, [facility] [place] [facility] [address] [id number] [place] [address]- 0411 Sep, [facility] [place] [facility] [address] [id number] [place] [address]- 7877 Sep, [facility] [place] [facility] [address] [id number] [place] [address]- 5122 Sep, [facility] [place] [facility] [address] [id number] [place] [address]- 9413 Aug, [facility] [place] [facility] [address] [id number] [place] [address]- 4711 Aug, [facility] [place] [facility] [address] [id number] [place] [address]- 1359 Aug, [facility] [place] [facility] [address] [id number] [place] [address]- 2427 Aug, [facility] [place] [facility] [address] [id number] [place] [address]- 1233 Jul, [facility] [place] [facility] [address] [id number] [place] [address]- 2122 29 Jul, 2011 [facility] [place] [facility] [address] [id number] [place] [address]- 2347 Jul, [facility] [place] [facility] [address] [id number] [place] [address]- 6727 Jul, [facility] [place] [facility] [address] [id number] [place] [address]- 9771 18 Jul, 2011 [facility] [place] [facility] [address] [id number] [place] [address]- 8563 Jul, [facility] [place] [facility] [address] [id number] [place] [address]- 5727 Jul, [facility] [place] [facility] [address] [id number] [place] [address]- 7510 10 Jul, 2011 [facility] [place] [facility] [address] [id number] [place] [address]- 9844 16 Jun, 2011 [facility] [place] [facility] [address] [id number] [place] [address]- 2623 13 Jun, 2011 [facility] [place] [facility] [address] [id number] [place] [address] 12 Jun, 2011 [facility] [place] [facility] [address] [id number] [place] [address] 06 Jun, 2011 [facility] [place] [facility] [address] [id number] [address] 14 May, 2011 [facility] [place] [facility] [address] [id number] [place] [address] 31 Apr, 2011 [facility] [place] [facility] [address] [id number] [place] [address] 13 Mar, 2011 [facility] [place] [facility] [address] [id number] [place] [address] 16 Dec, 2010 [facility] [place] [facility] [address] [id number] [place] [address] 10 Aug, 2010 [facility] [place] [facility] [id number] [address] 11 Jul, 2010 [facility] [place] [id number] [address] Sep, [facility] [place] [id number] [place] [address] Jul, [facility] [place] [id number] [address] 14 Jun, 2009 [facility], [place] [id number] [address] Jun, [facility] [place] [id number] [place] [address] May, [facility], [place] [id number] [place] [address] Apr, [facility] [place] [id number] [place] [address] Apr, [facility], [place] [id number] [address] Apr, [facility], [place] [id number] [place] [address] Feb, [facility], [place] [id number] [place] [address] Feb, [facility], [place] [id number] [place] [address] Jan, [facility], [place] [id number] [address] November, IMMUNIZATIONS No Known Immunizations SOCIAL HISTORY Never Assessed REASON FOR VISIT Patient Call PLAN OF CARE VITAL SIGNS MEDICATIONS Unknown Medications RESULTS No Results PROCEDURES No Known procedures INSTRUCTIONS MEDICATIONS ADMINISTERED No Known Medications MEDICAL (GENERAL) HISTORY Type Description Date Medical History Arthritis Surgical History cholecystectomy Surgical History wisdom teeth extraction Surgical History Partial hysterectomy 2018 Hospitalization History child Hospitalization History colitis
--- OUTSIDE RECORDS SUMMARY | 2018-06-14 20:50 | XMS REPORT ---
Author Author LESLIE CELE [facility] Address [address] [place] [address] Care Team Providers Care Physical Therapy Instructor Name Role Phone LESLIEALBERTO REIDHANY Unavailable PROBLEMS Type Condition ICD9-CM Code BWT38-QL Code Onset Dates Condition Status SNOMED Code Problem Menstrual migraine without status migrainosus, not intractable G43.829 Active 35500231 Problem Vaginal bleeding N93.9 Active 500286279 Problem Other chronic pain G89.29 Active 70911745 Problem Insomnia, unspecified type G47.00 Active 635657508 Problem History of anxiety Z86.59 Active 429841707 Problem Difficulty of mother performing R63.3 Active 235421724 Problem Rheumatoid arthritis with positive rheumatoid factor, involving unspecified site M05.9 Active [id number] ALLERGIES No Information ENCOUNTERS Encounter Location Date Diagnosis [facility] [id number] [place] [address] 10583- 7644 Jun, [facility] [place] [id number] [place] [address] 85109- 7253 Jan, [facility] [id number] [place] [address] 56437- 0401 Jan, [facility] [id number] [place] [address] 13226- 8231 Jan, [facility] [id number] [place] [address] 72728- 0201 Jan, [facility] [id number] [place] [address] 25909- 2408 Dec, Pelvic pain R10.2 and Vaginal bleeding N93.9 [facility] [id number] [place] [address] 47467- 2701 Dec, [facility] [place] [address] [address] 1262 Dec, [facility] [place] [id number] [place] [address] 12025- 3810 Dec, Screening, deficiency anemia, iron Z13.0 [facility] [place] [id number] [place] [address] 56722- 4574 Oct, Rheumatoid arthritis with positive rheumatoid factor, involving unspecified site M05.9 [facility] [place] [id number] [place] [address] 18046- 6635 Oct, Rheumatoid arthritis with positive rheumatoid factor, involving unspecified site M05.9 [facility] [place] [id number] [place] [address] 85607- 6969 Oct, Closed nondisplaced fracture of third metatarsal bone of right foot with routine healing, subsequent encounter S92.334D ; Closed nondisplaced fracture of second metatarsal bone of right foot with routine healing, subsequent encounter S92.324D ; Closed nondisplaced fracture of phalanx of left great toe with routine healing, unspecified phalanx, subsequent encounter S92.405D and Other chronic pain G89.29 [facility] [place] [id number] [place] [address] 89998- 7193 17 Oct, 2017 Closed nondisplaced fracture of [...] positive rheumatoid factor, involving unspecified site M05.9 [facility] [id number] [place] [address] 76253- 5668 Oct, [facility] [place] [id number] [place] [address] 58488- 2216 Oct, Injury of finger of right hand, initial encounter S69.91XA and Closed displaced fracture of distal phalanx of right middle finger, initial encounter S62.632A [facility] [place] [id number] [place] [address] 39895- 6331 Sep, Mastitis N61.0 and MRSA (methicillin resistant staph aureus ) culture positive Z22.322 [facility] [place] [id number] [place] [address] 75505- 0359 Sep, [facility] [id number] [place] [address] 01370- 1788 Sep, Difficulty of mother performing R63.3 [facility] [place] [id number] [place] [address] 03742- 9422 Sep, Acute mastitis of left breast N61.0 [facility] [id number] [place] [address] 58167 -9458 Sep, Abscess L02.91 [place] [id number] [place] [address] 13384- 5061 Sep, [place] [place] [id number] [place] [address] 00382- 6739 Jun, [facility] [place] [id number] [place] [address] 07121- 3130 05 Jun, 2017 care, subsequent in second trimester Z34.82 ; Placenta previa in second trimester O44.02 ; Abnormal quad screen O28.0 ; History of delivery, currently O09.219 and 24 weeks gestation of Z3A.24 [facility] [place] [address], [place] [address]- 8126 16 May, 2017 Dental examination Z01.20 [facility] [id number] [place] [address] 27545- 7317 08 May, 2017 History of delivery, currently O09.219 [facility] [id number] [place] [address] 21310- 1979 07 May, 2017 [place] [id number] [place] [address] 86945- 8887 May, 20 weeks gestation of Z3A.20 ; care, subsequent in second trimester Z34.82 ; History of delivery, currently O09.219 and Abnormal quad screen O28.0 [facility] [place] [id number] [place] [address] 55182- 1117 Apr, Elevated blood sugar level R73.9 and Glucosuria R81 [facility] [place] [id number] [place] [address] 94452- 0712 Apr, Elevated blood sugar level R73.9 and Glucosuria R81 [address] 09631- 1441 Apr, Elevated blood sugar level R73.9 [place] [id number] [place] [address] 45838- 0401 Apr, [place] [id number] [place] [address] 51383- 0778 Apr, 16 weeks gestation of Z3A.16 ; care, subsequent in second trimester Z34.82 ; Encounter for immunization Z23 and Glucosuria R81 [facility] [id number] [place] [address] 58580- 4769 Mar, 12 weeks gestation of Z3A.12 [place] [id number] [place] [address] 42240- 4914 Feb, [place] [id number] [place] [address] 78142- 2346 Feb, care, subsequent in first trimester Z34.81 and 8 weeks gestation of Z3A.08 [place] [id number] [place] [address] 32189- 4658 Jan, [place] [id number] [place] [address] 45763- 5620 Jul, Encounter for test, result unknown Z32.00 [place] [id number] [place] [address] 20054- 6038 Jun, control counseling Z30.9 and Insomnia, unspecified type G47.00 [place] [id number] [place] [address] 17436- 2632 Sep, Encounter for test Z32.00 [place] [address] 12419- 1632 Jul, [place] [address] 04837- 6069 Jul, Well woman exam Z01.419 ; Encounter for screening for malignant neoplasm of cervix Z12.4 ; Vaginal discharge N89.8 ; Routine screening for STI (sexually transmitted infection) Z11.3 ; Encounter for prescription for transdermal contraceptive Z30.49 ; Nausea with vomiting, unspecified R11.2 ; Menstrual migraine without status migrainosus, not intractable G43.829 and History of anxiety Z86.59 [place] [address] 90851- 7019 Jun, Encounter for surveillance of transdermal contraceptive Z30.49 and Sauceda F48.9 [place] [id number] [place] [address] 10339- 7002 Oct, [place] [id number] [place] [address] 03780- 1182 Oct, [place] [id number] [place] [address] 24836- 4248 Jul, [place] [id number] [place] [address] 16653- 2914 Jul, [place] [address] 55354- 1371 Jul, [place] [id number] [place] [address] 62734- 5488 Jul, [place] [address] 97811- 1249 Jul, [facility] [place] [facility] [address] [id number] [place] [address]- 5257 Jul, [facility] [place] [facility] [address] [id number] [place] [address]- 5844 Jun, [facility] [place] [facility] [address] [id number] [place] 5765 Jun, [facility] [place] [facility] [address] [id number] [place] [address]- 4196 May, [facility] [place] [facility] [address] [id number] [place] [address]- 9017 May, [facility] [place] [facility] [address] [id number] [place] [address]- 1037 May, [facility] [place] [facility] [address] [id number] [place] [address]- 3834 May, [facility] [place] [facility] [address] [id number] [place] [address]- 3069 Feb, [facility] [place] [facility] [address] [id number] [place] [address]- 7371 Feb, [facility] [place] [facility] [address] [id number] [place] [address]- 8580 Feb, [facility] [place] [facility] [address] [id number] [place] [address]- 4642 Feb, [facility] [place] [facility] [address] [id number] [place] [address]- 5432 Oct, [facility] [place] [facility] [address] [id number] [place] [address]- 8604 Oct, [facility] [place] [facility] [address] [id number] [place] [address]- 3477 Sep, [facility] [place] [facility] [address] [id number] [place] [address]- 1807 Sep, [facility] [place] [facility] [address] [id number] [place] [address] 254 Sep, [facility] [address] [id number] [place] [address]- 1273 Sep, [facility] [place] [facility] [address] [id number] [place] [address]- 3966 Aug, [facility] [place] [facility] [address] [id number] [place] [address]- 2246 Aug, [facility] [place] [facility] [address] [id number] [place] [address]- 0378 Jul, [facility] [place] [facility] [address] [id number] [place] [address]- 2292 Jul, [facility] [place] [facility] [address] [id number] [place] [address]- 4151 Jun, [facility] [place] [facility] [address] [id number] [place] [address]- 3954 Jun, [facility] [address] [id number] [place] [address]- 9980 Jun, [facility] [place] [facility] [address] [id number] [place] [address]- 2911 Jun, [facility] [address] [facility] [id number] [place] [address]- 6647 Jun, [facility] [place] [facility] [address] [id number] [place] [address]- 4928 May, [facility] [place] [facility] [address] [id number] [place] [address]- 1461 May, [facility] [place] [facility] [address] [id number] [place] [address]- 9006 May, [facility] [place] [facility] [address] [id number] [place] [address]- 4066 May, [facility] [place] [facility] [address] [id number] [place] [address]- 8140 Apr, [facility] [place] [facility] [address] [id number] [place] [address]- 6098 Apr, [facility] [place] [facility] [address] [id number] [place] [address]- 2663 Apr, [facility] [place] [facility] [address] [id number] [place] [address]- 1439 Feb, [facility] [place] [facility] [address] [id number] [place] [address]- 4577 Jan, [facility] [place] [facility] [address] [id number] [place] [address]- 0830 Aug, [facility] [place] [facility] [address] [id number] [place] [address]- 4067 Aug, [facility] [place] [facility] [address] [id number] [place] [address]- 6877 Aug, [facility] [place] [facility] [address] [id number] [place] [address]- 0881 Aug, [facility] [place] [facility] [address] [id number] [place] [address]- 6563 Aug, [facility] [place] [facility] [address] [id number] [place] [address]- 9321 Aug, [facility] [place] [facility] [address] [id number] [place] [address]- 2968 Jul, [facility] [place] [facility] [address] [id number] [place] [address]- 0892 Jul, [facility] [place] [facility] [address] [id number] [place] [address]- 9944 Jul, [facility] [place] [facility] [address] [id number] [place] [address]- 2217 Jul, [facility] [place] [facility] [address] [id number] [place] [address]- 3390 16 Jul, 2012 [facility] [place] [facility] [address] [id number] [place] [address]- 2144 Jul, [facility] [address] [id number] [place] [address]- 2642 Jul, [facility] [address] [id number] [place] [address]- 3961 Jun, [facility] [address] [id number] [place] [address]- 7094 Jun, [facility] [address] [id number] [place] [address]- 5036 Jun, [facility] [address] [id number] [place] [address]- 7434 Jun, [facility] [address] [id number] [place] [address]- 6328 Jun, [facility] [address] [id number] [place] [address]- 7557 Jun, [facility] [address] [id number] [place] [address]- 4113 Jun, [facility] [address] [id number] [place] [address]- 4959 Jun, [facility] [address] [id number] [place] [address]- 7501 Jun, [facility] [address] [id number] [place] [address]- 4819 Jun, [facility] [address] [id number] [place] [address]- 4347 May, [facility] [place] [facility] [address] [id number] [place] [address]- 1059 May, [facility] [place] [facility] [address] [id number] [place] [address]- 6256 May, [facility] [address] [id number] [place] [address]- 5594 May, [facility] [place] [facility] [address] [id number] [place] [address]- 5327 May, [facility] [place] [facility] [address] [id number] [place] [address]- 3193 Apr, [facility] [place] [facility] [address] [id number] [place] 7561 Apr, [facility] [place] [facility] [address] [id number] [place] [address]- 2664 Apr, [facility] [place] [facility] [address] [id number] [place] [address]- 3038 Apr, [facility] [place] [facility] [address] [id number] [place] [address]- 0471 Apr, [facility] [place] [facility] [address] [id number] [place] [address]- 7899 25 Mar, 2012 [facility] [place] [facility] [address] [id number] [place] [address]- 0693 20 Mar, 2012 [facility] [place] [facility] [address] [id number] [place] [address]- 7067 12 Mar, 2012 [facility] [place] [facility] [address] [id number], [place] [address]- 5770 07 Mar, 2012 [facility] [place] [facility] [address] [id number], [place] [address]- 2538 06 Mar, 2012 [facility] [place] [facility] [address] [id number], [place] [address]- 1977 05 Mar, 2012 [facility] [place] [facility] [address] [id number] [place] [address]- 3430 Feb, [facility] [place] [facility] [address] [id number], [place] [address]- 2237 Feb, [facility] [place] [facility] [address] [id number], [place] [address]- 3099 Feb, [facility] [place] [facility] [address] [id number], [place] [address]- 5242 Feb, [facility] [place] [facility] [address] [id number] [place] [address]- 7343 Feb, [facility] [place] [facility] [address] [id number] [place] [address]- 4978 Jan, [facility] [place] [facility] [address] [id number] [place] [address]- 0830 Jan, [facility] [place] [facility] [address] [id number] [place] [address]- 0545 Jan, [facility] [place] [facility] [address] [id number] [place] [address]- 2611 Jan, [facility] [place] [facility] [address] [id number] [place] [address]- 7086 Jan, [facility] [place] [facility] [address] [id number] [place] [address]- 4874 Jan, [facility] [place] [facility] [address] [id number] [place] [address]- 4358 Dec, [facility] [place] [facility] [address] [id number] [place] [address]- 9084 Dec, [facility] [place] [facility] [address] [facility] [id number] [place] [address]- 1505 Dec, [facility] [place] [facility] [address] [id number] [place] [address]- 1850 Dec, [facility] [place] [facility] [address] [id number] [place] [address]- 9365 Dec, [facility] [place] [facility] [address] [id number] [place] [address]- 9719 Dec, [facility] [place] [facility] [address] [facility] [id number] [place] [address]- 0871 Dec, [facility] [place] [facility] [address] [facility] [id number] [place] [address]- 8509 November, [facility] [place] [facility] [address] [id number] [place] [address]- 6276 November, [facility] [place] [facility] [address] [id number] [place] [address]- 9030 November, [facility] [place] [facility] [address] [id number] [place] [address]- 9833 Oct, [facility] [place] [facility] [address] [id number] [place] [address]- 5951 Oct, [facility] [place] [facility] [address] [id number] [place] [address]- 5668 Oct, [facility] [place] [facility] [address] [id number] [place] [address]- 7150 Sep, [facility] [place] [facility] [address] [id number] [place] [address]- 4280 Sep, [facility] [place] [facility] [address] [id number] [place] [address]- 7850 Sep, [facility] [place] [facility] [address] [id number] [place] [address]- 0036 Sep, [facility] [place] [facility] [address] [id number] [place] [address]- 3645 Sep, [facility] [place] [facility] [address] [id number] [place] [address]- 9545 Aug, [facility] [place] [facility] [address] [id number] [place] [address]- 3734 Aug, [facility] [place] [facility] [address] [id number] [place] [address]- 9675 Aug, [facility] [place] [facility] [address] [id number] [place] [address]- 5086 Aug, [facility] [place] [facility] [address] [id number] [place] [address]- 2840 Jul, [facility] [place] [facility] [address] [id number] [place] [address]- 5010 29 Jul, 2011 [facility] [place] [facility] [address] [id number] [place] [address]- 2764 Jul, [facility] [place] [facility] [address] [id number] [place] [address]- 3864 Jul, [facility] [place] [facility] [address] [id number] [place] [address]- 2802 18 Jul, 2011 [facility] [place] [facility] [address] [id number] [place] [address]- 4615 Jul, [facility] [place] [facility] [address] [id number] [place] [address]- 2132 Jul, [facility] [place] [facility] [address] [id number] [place] [address]- 7035 10 Jul, 2011 [facility] [place] [facility] [address] [id number] [place] [address]- 8549 16 Jun, 2011 [facility] [place] [facility] [address] [id number] [place] [address]- 4171 13 Jun, 2011 [facility] [place] [facility] [address] [id number] [place] [address]- 4374 12 Jun, 2011 [facility] [place] [facility] [address] [id number] [place] [address]- 4242 06 Jun, 2011 [facility] [place] [facility] [address] [id number], [place] [address]- 4273 14 May, 2011 [facility] [place] [facility] [address] [id number] [place] [address]- 5184 31 Apr, 2011 [facility] [place] [facility] [address] [id number] [place] [address]- 0402 13 Mar, 2011 [facility] [place] [facility] [address] [id number] [place] [address]- 1477 16 Dec, 2010 [facility] [place] [facility] [address] [id number] [place] [address]- 7146 10 Aug, 2010 [facility] [place] [facility] [address] [address]- 6966 11 Jul, 2010 [facility] [address] [address]- 1613 Sep, [facility] [address] [address]- 4726 Jul, [facility] [address], [place] [address]- 9267 14 Jun, 2009 [facility] [address], [place] [address]- 8133 Jun, [facility] [address] [address] May, [facility] [id number] [address] Apr, [facility] [id number] [place] [address] Apr, [facility] [id number] [address] Apr, [facility] [id number] [place] [address] Feb, [facility] [id number] [place] [address] Feb, [facility] [id number] [place] [address] Jan, [facility] [id number] [id number] November, IMMUNIZATIONS No Known Immunizations SOCIAL HISTORY Never Assessed REASON FOR VISIT Returned call PLAN OF CARE VITAL SIGNS MEDICATIONS Unknown Medications RESULTS No Results PROCEDURES No Known procedures INSTRUCTIONS MEDICATIONS ADMINISTERED No Known Medications MEDICAL (GENERAL) HISTORY Type Description Date Medical History Arthritis Surgical History cholecystectomy Surgical History wisdom teeth extraction Surgical History Partial hysterectomy 2018 Hospitalization History child Hospitalization History colitis
--- OUTSIDE RECORDS SUMMARY | 2018-06-14 20:51 | XMS REPORT ---
Author Author LESLIE CELE [facility] Address [address] [place] [address] Care Team Providers Care Editor Sound Name Role Phone LESLIEALBERTO REIDHANY Unavailable PROBLEMS Type Condition ICD9-CM Code OXL48-RX Code Onset Dates Condition Status SNOMED Code Problem Menstrual migraine without status migrainosus, not intractable G43.829 Active 39713199 Problem Vaginal bleeding N93.9 Active 677862972 Problem Other chronic pain G89.29 Active 02090357 Problem Insomnia, unspecified type G47.00 Active 659440392 Problem History of anxiety Z86.59 Active 035446207 Problem Difficulty of mother performing R63.3 Active 513212175 Problem Rheumatoid arthritis with positive rheumatoid factor, involving unspecified site M05.9 Active 979216913 ALLERGIES Substance Reaction Event Type Date Status Tylenol/Codeine #3 Unknown Drug Allergy Dec, Active Tramadol HCl vomiting Drug Allergy Dec, Active Keflex Unknown Drug Allergy Dec, Active ENCOUNTERS Encounter Location Date Diagnosis [place] [id number] [place] [address] 26581- 6024 Jun, [facility] [address] [address] 0318 Jan, [facility] [id number] [place] [address] 65301- 2297 Jan, [facility] [id number] [place] [address] 93259- 0153 Jan, [facility] [id number] [place] [address] 85796- 8004 Jan, [facility] [id number] [place] [address] 87010- 4793 Dec, Pelvic pain R10.2 and Vaginal bleeding N93.9 [place] [id number] [place] [address] 90712- 7536 Dec, [place] [id number] [place] [address] 09273- 0165 Dec, [place] [id number] [place] [address] 06892- 2873 Dec, Screening, deficiency anemia, iron Z13.0 [place] [address] 94462- 5417 Oct, Rheumatoid arthritis with positive rheumatoid factor, involving unspecified site M05.9 [place] [address] 34814- 8375 Oct, Rheumatoid arthritis with positive rheumatoid factor, involving unspecified site M05.9 [place] [id number] [place] [address] 92719- 1243 Oct, Closed nondisplaced fracture of third metatarsal bone of right foot with routine healing, subsequent encounter S92.334D ; Closed nondisplaced fracture of second metatarsal bone of right foot with routine healing, subsequent encounter S92.324D ; Closed nondisplaced fracture of phalanx of left great toe with routine healing, unspecified phalanx, subsequent encounter S92.405D and Other chronic pain G89.29 [place] [id number] [place] [address] 59851- 1925 17 Oct, 2017 Closed nondisplaced fracture of [...] positive rheumatoid factor, involving unspecified site M05.9 [place] [address] [place] [address] 87890- 7198 Oct, [facility] [id number] [address] 6086 Oct, Injury of finger of right hand, initial encounter S69.91XA and Closed displaced fracture of distal phalanx of right middle finger, initial encounter S62.632A [facility] [address] [address] 9310 Sep, Mastitis N61.0 and MRSA (methicillin resistant staph aureus ) culture positive Z22.322 [place] [address] [place] [id number] [place] [address] 22187- 3212 Sep, [place] [address] [id number] [place] [address] 67370- 5769 Sep, Difficulty of mother performing R63.3 [place] [address] [place] [address] 41685- 0889 Sep, Acute mastitis of left breast N61.0 [facility] [address] [place] [address] 66779 -0534 Sep, Abscess L02.91 [place] [address] [id number] [place] [address] 38828- 9120 Sep, [facility] [id number] [place] [address] 09686- 3028 Jun, [place] [address] [place] [address] 94545- 1994 05 Jun, 2017 care, subsequent in second trimester Z34.82 ; Placenta previa in second trimester O44.02 ; Abnormal quad screen O28.0 ; History of delivery, currently O09.219 and 24 weeks gestation of Z3A.24 [place] [address] [place] [address] 75683- 5223 16 May, 2017 Dental examination Z01.20 [place] [id number] [place] [address] 00308- 3311 08 May, 2017 History of delivery, currently O09.219 [place] [address] [place] [id number] [place] [address] 35987- 8666 May, [place] [address] 16041- 7205 May, 20 weeks gestation of Z3A.20 ; care, subsequent in second trimester Z34.82 ; History of delivery, currently O09.219 and Abnormal quad screen O28.0 [place] [address] 02524- 8885 Apr, Elevated blood sugar level R73.9 and Glucosuria R81 [address] 04625- 9684 Apr, Elevated blood sugar level R73.9 and Glucosuria R81 [address] 22394- 5898 Apr, Elevated blood sugar level R73.9 [place] [address] [place] [id number] [place] [address] 57749- 7053 Apr, [place] [address] 19026- 5838 Apr, 16 weeks gestation of Z3A.16 ; care, subsequent in second trimester Z34.82 ; Encounter for immunization Z23 and Glucosuria R81 [place] [address] [place] [id number] [place] [address] 01240- 8123 Mar, 12 weeks gestation of Z3A.12 [place] [address] [place] [id number] [place] [address] 12247- 9685 Feb, [address] 06631- 2771 Feb, care, subsequent in first trimester Z34.81 and 8 weeks gestation of Z3A.08 [place] [id number] [place] [address] 10292- 1032 Jan, [place] [address] [place] [id number] [place] [address] 98968- 2520 Jul, Encounter for test, result unknown Z32.00 [place] [address] 99854- 3888 Jun, control counseling Z30.9 and Insomnia, unspecified type G47.00 [place] [address] 88248- 2165 Sep, Encounter for test Z32.00 [place] [address] 17655- 7454 Jul, [place] [address] 04702- 7477 Jul, Well woman exam Z01.419 ; Encounter for screening for malignant neoplasm of cervix Z12.4 ; Vaginal discharge N89.8 ; Routine screening for STI (sexually transmitted infection) Z11.3 ; Encounter for prescription for transdermal contraceptive Z30.49 ; Nausea with vomiting, unspecified R11.2 ; Menstrual migraine without status migrainosus, not intractable G43.829 and History of anxiety Z86.59 [place] [address] 31374- 4253 Jun, Encounter for surveillance of transdermal contraceptive Z30.49 and Sauceda F48.9 [place] [address] [place] [id number] [place] [address] 09907- 4725 Oct, [place] [address] [place] [id number] [place] [address] 78893- 7912 Oct, [place] [address] [place] [id number] [place] [address] 70087- 6030 Jul, [place] [address] [place] [id number] [place] [address] 51029- 0242 Jul, [place] [address] [place] [id number] [place] [address] 12078- 5066 Jul, [place] [address] [place] [address]- 1798 Jul, [facility] [place] [facility] [address] [id number] [place] [address]- 7612 Jul, [facility] [place] [facility] [address] [id number] [place] [address]- 9982 Jul, [facility] [place] [facility] [address] [id number] [place] 9021 Jun, [facility] [place] [facility] [address] [id number] [place] [address]- 6117 Jun, [facility] [place] [facility] [address] [id number] [place] [address]- 1223 May, [facility] [place] [facility] [address] [id number] [place] [address]- 4144 May, [facility] [place] [facility] [address] [id number] [place] [address]- 6160 May, [facility] [place] [facility] [address] [id number] [place] [address]- 9980 May, [facility] [place] [facility] [address] [id number] [place] [address]- 4096 Feb, [facility] [place] [facility] [address] [id number] [place] [address]- 7028 Feb, [facility] [place] [facility] [address] [id number] [place] [address]- 2668 Feb, [facility] [place] [facility] [address] [id number] [place] [address]- 2950 Feb, [facility] [place] [facility] [address] [id number] [place] [address]- 5278 Oct, [facility] [place] [facility] [address] [id number] [place] [address]- 3010 Oct, [facility] [place] [facility] [address] [id number] [place] [address]- 7254 Sep, [facility] [place] [facility] [address] [id number] [place] [address]- 0135 Sep, [facility] [place] [facility] [address] [id number] [place] [address]- 3719 Sep, [facility] [place] [facility] [address] [id number] [place] 3023 Sep, [facility] [place] [facility] [address] [id number] [place] [address]- 9438 Aug, [facility] [place] [facility] [address] [id number] [place] [address]- 1567 Aug, [facility] [place] [facility] [address] [id number] [place] 9540 Jul, [facility] [place] [facility] [address] [id number] [place] [address]- 9352 Jul, [facility] [place] [facility] [address] [id number] [place] [address]- 2768 Jun, [facility] [place] [facility] [address] [id number] [place] [address]- 4469 Jun, [facility] [place] [facility] [address] [id number] [place] [address]- 6957 Jun, [facility] [place] [facility] [address] [id number] [place] 2358 Jun, [facility] [place] [facility] [address] [id number] [place] [address]- 4159 Jun, [facility] [place] [facility] [address] [id number] [place] [address]- 4097 May, [facility] [place] [facility] [address] [id number] [place] [address]- 1257 May, [facility] [place] [facility] [address] [id number] [place] [address]- 4488 May, [facility] [place] [facility] [address] [id number] [place] [address]- 6200 May, [facility] [address] [id number] [place] [address]- 9575 Apr, [facility] [place] [facility] [address] [id number] [place] [address]- 9056 Apr, [facility] [place] [facility] [address] [facility] [id number] [place] [address]- 2131 Apr, [facility] [place] [facility] [address] [id number] [place] [address]- 5316 Feb, [facility] [place] [facility] [address] [id number] [place] [address]- 6787 Jan, [facility] [place] [facility] [address] [id number] [place] [address]- 5874 Aug, [facility] [id number] [place] [address]- 4397 Aug, [facility] [place] [facility] [address] [facility] [id number] [place] [address]- 8461 Aug, [facility] [place] [facility] [address] [facility] [id number] [place] [address]- 9789 Aug, [facility] [place] [facility] [address] [facility] [id number] [place] [address]- 8080 Aug, [facility] [place] [facility] [address] [facility] [id number] [place] [address]- 6258 Aug, [facility] [place] [facility] [address] [id number] [place] [address]- 7641 Jul, [facility] [place] [facility] [address] [id number] [place] [address]- 5996 Jul, [facility] [place] [facility] [address] [facility] [id number] [place] [address]- 9126 Jul, [facility] [place] [facility] [address] [facility] [id number] [place] [address]- 7994 Jul, [facility] [place] [facility] [address] [id number] [place] [address]- 9991 Jul, [facility] [address] [id number] [place] [address]- 7287 Jul, [facility] [address] [id number] [place] [address]- 7778 Jul, [facility] [address] [id number] [place] [address]- 1613 Jun, [facility] [address] [id number] [place] [address]- 9183 Jun, [facility] [address] [id number] [place] [address]- 8202 Jun, [facility] [address] [id number] [place] [address]- 9371 Jun, [facility] [address] [id number] [place] [address]- 8991 Jun, [facility] [address] [id number] [place] [address]- 6605 Jun, [facility] [address] [id number] [place] [address]- 2396 Jun, [facility] [address] [id number] [place] [address]- 3183 Jun, [facility] [address] [id number] [place] [address]- 1128 Jun, [facility] [address] [id number] [place] [address]- 1133 Jun, [facility] [place] [facility] [address] [id number] [place] [address]- 9804 May, [facility] [address] [id number] [place] [address]- 5727 May, [facility] [address] [id number] [place] [address]- 0977 May, [facility] [place] [facility] [address] [id number] [place] [address]- 5093 May, [facility] [place] [facility] [address] [id number] [place] [address]- 2206 May, [facility] [place] [facility] [address] [id number] [place] [address]- 9086 Apr, [facility] [place] [facility] [address] [id number] [place] [address]- 7958 Apr, [facility] [place] [facility] [address] [id number] [place] [address]- 5070 Apr, [facility] [place] [facility] [address] [id number] [place] [address]- 2945 Apr, [facility] [place] [facility] [address] [id number] [place] [address]- 5589 Apr, [facility] [place] [facility] [address] [id number] [place] [address]- 2349 25 Mar, 2012 [facility] [place] [facility] [address] [id number] [place] [address]- 0409 20 Mar, 2012 [facility] [place] [facility] [address] [id number] [place] [address]- 8501 12 Mar, 2012 [facility] [place] [facility] [address] [id number] [place] [address]- 5444 07 Mar, 2012 [facility] [place] [facility] [address] [id number] [place] [address]- 7706 06 Mar, 2012 [facility] [place] [facility] [address] [id number] [place] [address]- 8168 05 Mar, 2012 [facility] [place] [facility] [address] [id number] [place] [address]- 3450 Feb, [facility] [place] [facility] [address] [id number] [place] [address]- 8901 Feb, [facility] [place] [facility] [address] [id number] [place] [address]- 6374 Feb, [facility] [place] [facility] [address] [id number] [place] [address]- 2813 Feb, [facility] [place] [facility] [address] [id number] [place] [address]- 9186 Feb, [facility] [place] [facility] [address] [id number] [place] [address]- 4552 Jan, [facility] [place] [facility] [address] [id number] [place] [address]- 1747 Jan, [facility] [place] [facility] [address] [id number] [place] [address]- 0146 Jan, [facility] [place] [facility] [address] [id number] [place] [address]- 7736 Jan, [facility] [place] [facility] [address] [id number] [place] [address]- 3038 Jan, [facility] [place] [facility] [address] [id number] [place] [address]- 7450 Jan, [facility] [place] [facility] [address] [id number] [place] [address]- 9155 Dec, [facility] [place] [facility] [address] [id number] [place] [address]- 7296 Dec, [facility] [place] [facility] [address] [id number] [place] [address]- 3864 Dec, [facility] [place] [facility] [address] [id number] [place] [address]- 5709 Dec, [facility] [place] [facility] [address] [id number] [place] [address]- 3867 Dec, [facility] [place] [facility] [address] [id number] [place] [address]- 1480 Dec, [facility] [place] [facility] [address] [id number] [place] [address]- 1931 Dec, [facility] [address] [id number] [place] [address]- 8170 November, [facility] [place] [facility] [address] [id number] [place] [address]- 5739 November, [facility] [place] [facility] [address] [id number] [place] [address]- 5217 November, [facility] [place] [facility] [address] [id number] [place] [address]- 0311 Oct, [facility] [place] [facility] [address] [id number] [place] [address]- 5422 Oct, [facility] [place] [facility] [address] [id number] [place] [address]- 0043 Oct, [facility] [place] [facility] [address] [id number] [place] [address]- 2952 Sep, [facility] [place] [facility] [address] [id number] [place] [address]- 0818 Sep, [facility] [place] [facility] [address] [id number] [place] [address]- 1230 Sep, [facility] [place] [facility] [address] [id number] [place] [address]- 7354 Sep, [facility] [place] [facility] [address] [id number] [place] [address]- 2881 Sep, [facility] [place] [facility] [address] [id number] [place] [address]- 9445 Aug, [facility] [place] [facility] [address] [id number] [place] [address]- 2308 Aug, [facility] [place] [facility] [address] [id number] [place] [address]- 0666 Aug, [facility] [place] [facility] [address] [id number] [place] [address]- 3286 Aug, [facility] [place] [facility] [address] [id number] [place] [address]- 4480 30 Jul, 2011 [facility] [address] [id number] [place] [address]- 4990 29 Jul, 2011 [facility] [place] [facility] [address] [id number] [place] [address]- 9369 28 Jul, 2011 [facility] [address] [id number] [place] [address]- 6208 Jul, [facility] [place] [facility] [address] [id number] [place] [address]- 5522 18 Jul, 2011 [facility] [address] [id number] [place] [address]- 8058 12 Jul, 2011 [facility] [place] [facility] [address] [id number] [place] [address]- 4921 11 Jul, 2011 [facility] [address] [id number] [place] [address]- 7562 10 Jul, 2011 [facility] [place] [facility] [address] [id number] [place] [address]- 3398 16 Jun, 2011 [facility] [place] [facility] [address] [id number] [place] [address]- 6926 13 Jun, 2011 [facility] [place] [facility] [address] [facility] [id number] [place] [address]- 3363 12 Jun, 2011 [facility] [place] [facility] [address] [id number] [place] [address]- 7055 06 Jun, 2011 [facility] [place] [facility] [address] [id number] [place] [address]- 2067 14 May, 2011 [facility] [place] [facility] [address] [id number] [place] [address]- 0241 31 Apr, 2011 [facility] [place] [facility] [address] [id number] [place] [address]- 2395 13 Mar, 2011 [facility] [place] [facility] [address] [id number] [place] [address]- 6485 16 Dec, 2010 [facility] [address] [facility] [id number] [place] [address]- 5472 10 Aug, 2010 [facility] [address] [facility] [id number] [place] [address]- 3996 11 Jul, 2010 [facility] [address] [facility] [id number] [place] [address]- 3896 Sep, [facility] [address] [facility] [id number] [place] [address]- 5800 Jul, [facility] [address] [facility] [id number] [place] [address]- 6739 Jun, [facility] [address] [facility] [id number] [place] [address]- 1756 Jun, [facility] [address] [id number] [address]- 3106 May, [facility] [address] [id number] [address]- 6703 Apr, [facility] [address] [facility] [id number] [place] [address]- 3363 Apr, [facility] [id number] [address] Apr, [facility] [id number] [address] Feb, [facility] [id number] [address] Feb, [facility] [address] [facility] [id number] [address] Jan, [facility] [address] [id number] [address] November, IMMUNIZATIONS No Known Immunizations SOCIAL HISTORY Never Assessed REASON FOR VISIT Extreme pelvic cramping, partial hysterectomy Aug 12, [facility] Activity Details Follow Up 6 Weeks Reason:F/U pelvic US and labs VITAL SIGNS Height 64 in 2018-01-07 Weight 113.2 lbs 2018-01-07 Temperature 98.7 degrees Fahrenheit 2018-01-07 Heart Rate 80 bpm 2018-01-07 Respiratory Rate 18 2018-01-07 BMI 19.43 kg/m2 2018-01-07 Blood pressure systolic 110 mmHg 2018-01-07 Blood pressure diastolic 62 mmHg 2018-01-07 MEDICATIONS Medication Instructions Dosage Frequency Start Date End Date Duration Status Amitriptyline HCl 25 MG Orally Once a day 1 tablet 24h Sep, 30 day(s) Not-Taking Ibuprofen 800 MG Orally Three times a day 1 tablet with food or milk as needed 8h Not-Taking Hydrocodone-Acetaminophen 5-325 mg Orally every 8-12 hrs 1 tablet as needed Oct, Active Neurontin 600 MG Orally Once a day 1 tablet before bedtime 24h Feb, 30 days Active Flexeril Not-Taking One Daily Not-Taking RESULTS No Results PROCEDURES Procedure Date Ordered Result Body Site No Charge January 07, 2018 URINALYSIS, AUTO, W/O SCOPE January 07, 2018 [facility] January 07, 2018 Bacterial Vaginosis In House January 07, 2018 INSTRUCTIONS MEDICATIONS ADMINISTERED No Known Medications MEDICAL (GENERAL) HISTORY Type Description Date Medical History Arthritis Surgical History cholecystectomy Surgical History wisdom teeth extraction Surgical History Partial hysterectomy 2018 Hospitalization History child Hospitalization History colitis
--- OUTSIDE RECORDS SUMMARY | 2018-06-14 20:51 | XMS REPORT ---
Author Author LESLIE CELE [facility] Address [address] [place] [address] Care Team Providers Care Ship Mate Name Role Phone LESLIEALBERTOCELE Unavailable PROBLEMS Type Condition ICD9-CM Code OIB55-AN Code Onset Dates Condition Status SNOMED Code Problem Menstrual migraine without status migrainosus, not intractable G43.829 Active 73651620 Problem Vaginal bleeding N93.9 Active 530411870 Problem Other chronic pain G89.29 Active 18333731 Problem Insomnia, unspecified type G47.00 Active 383239305 Problem History of anxiety Z86.59 Active 444526925 Problem Difficulty of mother performing R63.3 Active 554528849 Problem Rheumatoid arthritis with positive rheumatoid factor, involving unspecified site M05.9 Active [id number] ALLERGIES No Information ENCOUNTERS Encounter Location Date Diagnosis [place] [id number] [place] [address] 34356- 5385 Jun, [place] [id number] [place] [address] 95183- 8615 Jan, [facility] [place] [id number] [place] [address] 00792- 9136 Jan, [facility] [place] [id number] [place] [address] 53635- 0078 Jan, [facility] [place] [id number] [place] [address] 28249- 9285 Jan, [facility] [place] [id number] [place] [address] 92677- 2735 Dec, Pelvic pain R10.2 and Vaginal bleeding N93.9 [facility] [place] [id number] [place] [address] 22524- 6375 Dec, [place] [address] [address] 3720 Dec, [place] [id number] [place] [address] 01778- 0891 Dec, Screening, deficiency anemia, iron Z13.0 [place] [id number] [place] [address] 00651- 4146 Oct, Rheumatoid arthritis with positive rheumatoid factor, involving unspecified site M05.9 [place] [id number] [place] [address] 62250- 7238 Oct, Rheumatoid arthritis with positive rheumatoid factor, involving unspecified site M05.9 [place] [id number] [place] [address] 64197- 0303 Oct, Closed nondisplaced fracture of third metatarsal bone of right foot with routine healing, subsequent encounter S92.334D ; Closed nondisplaced fracture of second metatarsal bone of right foot with routine healing, subsequent encounter S92.324D ; Closed nondisplaced fracture of phalanx of left great toe with routine healing, unspecified phalanx, subsequent encounter S92.405D and Other chronic pain G89.29 [place] [id number] [place] [address] 30934- 0326 17 Oct, 2017 Closed nondisplaced fracture of [...] positive rheumatoid factor, involving unspecified site M05.9 [place] [id number] [place] [address] 24916- 0834 Oct, [place] [id number] [place] [address] 24424- 3987 Oct, Injury of finger of right hand, initial encounter S69.91XA and Closed displaced fracture of distal phalanx of right middle finger, initial encounter S62.632A [place] [id number] [place] [address] 28868- 8197 Sep, Mastitis N61.0 and MRSA (methicillin resistant staph aureus ) culture positive Z22.322 [place] [address] [place] [address] 43340- 8637 Sep, [facility] [place] [id number] [place] [address] 75983- 6089 Sep, Difficulty of mother performing R63.3 [place] [id number] [place] [address] 18401- 2299 Sep, Acute mastitis of left breast N61.0 [facility] [id number] [place] [address] 87947 -9584 Sep, Abscess L02.91 [place] [id number] [place] [address] 14889- 6175 Sep, [place] [id number] [place] [address] 30741- 3912 Jun, [place] [id number] [place] [address] 64860- 3360 05 Jun, 2017 care, subsequent in second trimester Z34.82 ; Placenta previa in second trimester O44.02 ; Abnormal quad screen O28.0 ; History of delivery, currently O09.219 and 24 weeks gestation of Z3A.24 [place] [address] [address]- 1016 16 May, 2017 Dental examination Z01.20 [place] [address] [place] [address] 97274- 5304 08 May, 2017 History of delivery, currently O09.219 [place] [address] [place] [address] 27880- 3175 07 May, 2017 [place] [id number] [place] [address] 88832- 7878 May, 20 weeks gestation of Z3A.20 ; care, subsequent in second trimester Z34.82 ; History of delivery, currently O09.219 and Abnormal quad screen O28.0 [place] [id number] [place] [address] 91230- 3721 Apr, Elevated blood sugar level R73.9 and Glucosuria R81 [place] [id number] [place] [address] 24017- 8463 Apr, Elevated blood sugar level R73.9 and Glucosuria R81 [address] 71888- 8239 Apr, Elevated blood sugar level R73.9 [place] [id number] [place] [address] 01460- 7079 Apr, [place] [id number] [place] [address] 28906- 1061 Apr, 16 weeks gestation of Z3A.16 ; care, subsequent in second trimester Z34.82 ; Encounter for immunization Z23 and Glucosuria R81 [place] [id number] [place] [address] 97848- 2562 Mar, 12 weeks gestation of Z3A.12 [place] [id number] [place] [address] 90231- 0100 Feb, [place] [id number] [place] [address] 41467- 9987 Feb, care, subsequent in first trimester Z34.81 and 8 weeks gestation of Z3A.08 [place] [id number] [place] [address] 21804- 7065 Jan, [place] [id number] [place] [address] 31501- 1829 Jul, Encounter for test, result unknown Z32.00 [place] [id number] [place] [address] 95193- 1400 Jun, control counseling Z30.9 and Insomnia, unspecified type G47.00 [place] [id number] [place] [address] 55473- 8436 Sep, Encounter for test Z32.00 [place] [address] 28461- 2369 Jul, [place] [address] 99164- 1342 Jul, Well woman exam Z01.419 ; Encounter for screening for malignant neoplasm of cervix Z12.4 ; Vaginal discharge N89.8 ; Routine screening for STI (sexually transmitted infection) Z11.3 ; Encounter for prescription for transdermal contraceptive Z30.49 ; Nausea with vomiting, unspecified R11.2 ; Menstrual migraine without status migrainosus, not intractable G43.829 and History of anxiety Z86.59 [place] [address] 55517- 9227 Jun, Encounter for surveillance of transdermal contraceptive Z30.49 and Sauceda F48.9 [place] [id number] [place] [address] 39761- 9602 Oct, [place] [id number] [place] [address] 75309- 1070 Oct, [place] [id number] [place] [address] 79664- 8288 Jul, [place] [id number] [place] [address] 38523- 0346 Jul, [place] [address] 02162- 9054 Jul, [place] [id number] [place] [address] 02291- 4699 Jul, [place] [address] 90723- 4751 Jul, [facility] [place] [facility] [address] [id number] [place] [address]- 6042 Jul, [facility] [place] [facility] [address] [id number] [place] [address]- 6995 Jun, [facility] [place] [facility] [address] [id number] [place] 7392 Jun, [facility] [place] [facility] [address] [id number] [place] [address]- 0704 May, [facility] [place] [facility] [address] [id number] [place] [address]- 8127 May, [facility] [place] [facility] [address] [id number] [place] [address]- 2503 May, [facility] [place] [facility] [address] [id number] [place] [address]- 1697 May, [facility] [place] [facility] [address] [id number] [place] [address]- 9284 Feb, [facility] [place] [facility] [address] [id number] [place] [address]- 9038 Feb, [facility] [place] [facility] [address] [id number] [place] [address]- 8426 Feb, [facility] [place] [facility] [address] [id number] [place] [address]- 4098 Feb, [facility] [place] [facility] [address] [id number] [place] [address]- 8615 Oct, [facility] [place] [facility] [address] [id number] [place] [address]- 0342 Oct, [facility] [place] [facility] [address] [id number] [place] [address]- 6657 Sep, [facility] [place] [facility] [address] [id number] [place] [address]- 8465 Sep, [facility] [place] [facility] [address] [id number] [place] [address] 2542 Sep, [facility] [address] [id number] [place] [address]- 2347 Sep, [facility] [place] [facility] [address] [id number] [place] [address]- 9916 Aug, [facility] [place] [facility] [address] [id number] [place] [address]- 3436 Aug, [facility] [place] [facility] [address] [id number] [place] [address]- 9160 Jul, [facility] [place] [facility] [address] [id number] [place] [address]- 4771 Jul, [facility] [place] [facility] [address] [id number] [place] [address]- 7578 Jun, [facility] [place] [facility] [address] [id number] [place] [address]- 5597 Jun, [facility] [address] [id number] [place] [address]- 9108 Jun, [facility] [place] [facility] [address] [id number] [place] [address]- 3121 Jun, [facility] [address] [facility] [id number] [place] [address]- 7110 Jun, [facility] [place] [facility] [address] [id number] [place] [address]- 2160 May, [facility] [place] [facility] [address] [id number] [place] [address]- 5696 May, [facility] [place] [facility] [address] [id number] [place] [address]- 4149 May, [facility] [place] [facility] [address] [id number] [place] [address]- 5976 May, [facility] [place] [facility] [address] [id number] [place] [address]- 0854 Apr, [facility] [place] [facility] [address] [id number] [place] [address]- 6159 Apr, [facility] [place] [facility] [address] [id number] [place] [address]- 4347 Apr, [facility] [place] [facility] [address] [id number] [place] [address]- 0063 Feb, [facility] [place] [facility] [address] [id number] [place] [address]- 0722 Jan, [facility] [place] [facility] [address] [id number] [place] [address]- 6608 Aug, [facility] [place] [facility] [address] [id number] [place] [address]- 2457 Aug, [facility] [place] [facility] [address] [id number] [place] [address]- 0508 Aug, [facility] [place] [facility] [address] [id number] [place] [address]- 7691 Aug, [facility] [place] [facility] [address] [id number] [place] [address]- 2156 Aug, [facility] [place] [facility] [address] [id number] [place] [address]- 9455 Aug, [facility] [place] [facility] [address] [id number] [place] [address]- 0758 Jul, [facility] [place] [facility] [address] [id number] [place] [address]- 0254 Jul, [facility] [place] [facility] [address] [id number] [place] [address]- 0372 Jul, [facility] [place] [facility] [address] [id number] [place] [address]- 0334 Jul, [facility] [place] [facility] [address] [id number] [place] [address]- 3814 16 Jul, 2012 [facility] [place] [facility] [address] [id number] [place] [address]- 1940 Jul, [facility] [address] [id number] [place] [address]- 4862 Jul, [facility] [address] [id number] [place] [address]- 5559 Jun, [facility] [address] [id number] [place] [address]- 5427 Jun, [facility] [address] [id number] [place] [address]- 8405 Jun, [facility] [address] [id number] [place] [address]- 5419 Jun, [facility] [address] [id number] [place] [address]- 2836 Jun, [facility] [address] [id number] [place] [address]- 4090 Jun, [facility] [address] [id number] [place] [address]- 9742 Jun, [facility] [address] [id number] [place] [address]- 6792 Jun, [facility] [address] [id number] [place] [address]- 1920 Jun, [facility] [address] [id number] [place] [address]- 0582 Jun, [facility] [address] [id number] [place] [address]- 9273 May, [facility] [place] [facility] [address] [id number] [place] [address]- 7546 May, [facility] [place] [facility] [address] [id number] [place] [address]- 6056 May, [facility] [address] [id number] [place] [address]- 9741 May, [facility] [place] [facility] [address] [id number] [place] [address]- 5813 May, [facility] [place] [facility] [address] [id number] [place] [address]- 8166 Apr, [facility] [place] [facility] [address] [id number] [place] 5821 Apr, [facility] [place] [facility] [address] [id number] [place] [address]- 3430 Apr, [facility] [place] [facility] [address] [id number] [place] [address]- 8312 Apr, [facility] [place] [facility] [address] [id number] [place] [address]- 6124 Apr, [facility] [place] [facility] [address] [id number] [place] [address]- 1142 25 Mar, 2012 [facility] [place] [facility] [address] [id number] [place] [address]- 5887 20 Mar, 2012 [facility] [place] [facility] [address] [id number] [place] [address]- 0188 12 Mar, 2012 [facility] [place] [facility] [address] [id number] [address]- 6614 07 Mar, 2012 [facility] [place] [facility] [address] [id number], [place] [address]- 2636 06 Mar, 2012 [facility] [place] [facility] [address] [id number], [place] [address]- 9266 05 Mar, 2012 [facility] [place] [facility] [address] [id number] [place] [address]- 9294 Feb, [facility] [place] [facility] [address] [id number], [place] [address]- 7257 Feb, [facility] [place] [facility] [address] [id number], [place] [address]- 2735 Feb, [facility] [place] [facility] [address] [id number], [place] [address]- 8221 Feb, [facility] [place] [facility] [address] [id number] [place] [address]- 1797 Feb, [facility] [place] [facility] [address] [id number] [place] [address]- 3788 Jan, [facility] [place] [facility] [address] [id number] [place] [address]- 4072 Jan, [facility] [place] [facility] [address] [id number] [place] [address]- 7740 Jan, [facility] [place] [facility] [address] [id number] [place] [address]- 7687 Jan, [facility] [place] [facility] [address] [id number] [place] [address]- 4772 Jan, [facility] [place] [facility] [address] [id number] [place] [address]- 7763 Jan, [facility] [place] [facility] [address] [id number] [place] [address]- 9281 Dec, [facility] [place] [facility] [address] [id number] [place] [address]- 7759 Dec, [facility] [place] [facility] [address] [facility] [id number] [place] [address]- 9248 Dec, [facility] [place] [facility] [address] [id number] [place] [address]- 1779 Dec, [facility] [place] [facility] [address] [id number] [place] [address]- 2004 Dec, [facility] [place] [facility] [address] [id number] [place] [address]- 6886 Dec, [facility] [place] [facility] [address] [facility] [id number] [place] [address]- 6936 Dec, [facility] [place] [facility] [address] [facility] [id number] [place] [address]- 9040 November, [facility] [place] [facility] [address] [id number] [place] [address]- 9025 November, [facility] [place] [facility] [address] [id number] [place] [address]- 8656 November, [facility] [place] [facility] [address] [id number] [place] [address]- 4148 Oct, [facility] [place] [facility] [address] [id number] [place] [address]- 7117 Oct, [facility] [place] [facility] [address] [id number] [place] [address]- 1775 Oct, [facility] [place] [facility] [address] [id number] [place] [address]- 9043 Sep, [facility] [place] [facility] [address] [id number] [place] [address]- 8613 Sep, [facility] [place] [facility] [address] [id number] [place] [address]- 6708 Sep, [facility] [place] [facility] [address] [id number] [place] [address]- 7416 Sep, [facility] [place] [facility] [address] [id number] [place] [address]- 6956 Sep, [facility] [place] [facility] [address] [id number] [place] [address]- 4735 Aug, [facility] [place] [facility] [address] [id number] [place] [address]- 9450 Aug, [facility] [place] [facility] [address] [id number] [place] [address]- 6412 Aug, [facility] [place] [facility] [address] [id number] [place] [address]- 4492 Aug, [facility] [place] [facility] [address] [id number] [place] [address]- 9388 Jul, [facility] [place] [facility] [address] [id number] [place] [address]- 3663 29 Jul, 2011 [facility] [place] [facility] [address] [id number] [place] [address]- 2219 Jul, [facility] [place] [facility] [address] [id number] [place] [address]- 8000 Jul, [facility] [place] [facility] [address] [id number] [place] [address]- 7823 18 Jul, 2011 [facility] [place] [facility] [address] [id number] [place] [address]- 4843 Jul, [facility] [place] [facility] [address] [id number] [place] [address]- 7295 Jul, [facility] [place] [facility] [address] [id number] [place] [address]- 0122 10 Jul, 2011 [facility] [place] [facility] [address] [id number] [place] [address]- 2486 16 Jun, 2011 [facility] [place] [facility] [address] [id number] [place] [address]- 0174 13 Jun, 2011 [facility] [place] [facility] [address] [id number] [place] [address]- 7425 12 Jun, 2011 [facility] [place] [facility] [address] [id number] [place] [address]- 3776 06 Jun, 2011 [facility] [place] [facility] [address] [id number], [place] [address]- 2161 14 May, 2011 [facility] [place] [facility] [address] [id number] [place] [address]- 1615 31 Apr, 2011 [facility] [place] [facility] [address] [id number] [place] [address]- 7385 13 Mar, 2011 [facility] [place] [facility] [address] [id number] [place] [address]- 6211 16 Dec, 2010 [facility] [place] [facility] [address] [id number] [place] [address]- 5866 10 Aug, 2010 [facility] [place] [facility] [id number] [address]- 9616 11 Jul, 2010 [facility] [place] [id number] [address]- 3286 Sep, [facility] [place] [address] [address] Jul, [facility] [place] [id number] [address] 14 Jun, 2009 [facility] [place] [id number] [address] Jun, [facility] [place] [id number] [address] May, [facility] [place] [id number] [address] Apr, [facility] [place] [id number] [address] Apr, [facility] [place] [id number] [address] Apr, [facility] [place] [id number] [address] Feb, [facility] [place] [id number], [place] [address] Feb, [facility] [place] [id number], [place] [address] Jan, [facility] [place] [id number] [id number] November, IMMUNIZATIONS No Known Immunizations SOCIAL HISTORY [...]
--- OUTSIDE RECORDS SUMMARY | 2018-06-14 20:52 | XMS REPORT ---
Author Author LESLIE CELE [facility] Address [address] [place] [address] Care Team Providers Care Logistics Program Manager Name Role Phone LESLIEALBERTO REIDHANY Unavailable PROBLEMS Type Condition ICD9-CM Code XUJ23-PK Code Onset Dates Condition Status SNOMED Code Problem Menstrual migraine without status migrainosus, not intractable G43.829 Active 29830019 Problem Vaginal bleeding N93.9 Active 018453814 Problem Other chronic pain G89.29 Active 08147931 Problem Insomnia, unspecified type G47.00 Active 829350388 Problem History of anxiety Z86.59 Active 498186699 Problem Difficulty of mother performing R63.3 Active 901464996 Problem Rheumatoid arthritis with positive rheumatoid factor, involving unspecified site M05.9 Active [id number] ALLERGIES No Information ENCOUNTERS Encounter Location Date Diagnosis [facility] [id number] [place] [address] 22953- 8717 Jan, [facility] [id number] [place] [address] 81812- 7476 Jan, [facility] [id number] [place] [address] 01314- 8529 Jan, [facility] [id number] [place] [address] 25977- 8918 Jan, [facility] [id number] [place] [address] 45534- 9350 Dec, Pelvic pain R10.2 and Vaginal bleeding N93.9 [facility] [address] [address]- [address] Dec, [facility] [id number] [place] [address] 58386- 8407 Dec, [facility] [address], [place] [address] Dec, Screening, deficiency anemia, iron Z13.0 [facility] [id number] [place] [address] 92546- 1012 Oct, Rheumatoid arthritis with positive rheumatoid factor, involving unspecified site M05.9 [facility] [id number] [place] [address] 22082- 8893 Oct, Rheumatoid arthritis with positive rheumatoid factor, involving unspecified site M05.9 [facility] [id number] [place] [address] 36345- 0834 Oct, Closed nondisplaced fracture of third metatarsal bone of right foot with routine healing, subsequent encounter S92.334D ; Closed nondisplaced fracture of second metatarsal bone of right foot with routine healing, subsequent encounter S92.324D ; Closed nondisplaced fracture of phalanx of left great toe with routine healing, unspecified phalanx, subsequent encounter S92.405D and Other chronic pain G89.29 [facility] [id number] [place] [address] 11180- 5120 Oct, Closed nondisplaced fracture of third metatarsal [...] positive rheumatoid factor, involving unspecified site M05.9 [facility] [id number] [place] [address] 40047- 1173 Oct, [facility] [id number] [place] [address] 89127- 6909 Oct, Injury of finger of right hand, initial encounter S69.91XA and Closed displaced fracture of distal phalanx of right middle finger, initial encounter S62.632A [facility] [id number], [place] [address] 1092 Sep, Mastitis N61.0 and MRSA (methicillin resistant staph aureus ) culture positive Z22.322 [facility] [address], [place] [address] 8559 Sep, [facility] [address], [place] [address] 8623 Sep, Difficulty of mother performing R63.3 [facility] [address], [place] [address] 4228 Sep, Acute mastitis of left breast N61.0 [facility] [address], [place] [address] Sep, Abscess L02.91 [facility] [address], [place] [address]- 6590 Sep, [facility] [address] [address]- 7186 Jun, [facility] [id number], [place] [address]- 6076 Jun, care, subsequent in second trimester Z34.82 ; Placenta previa in second trimester O44.02 ; Abnormal quad screen O28.0 ; History of delivery, currently O09.219 and 24 weeks gestation of Z3A.24 [facility] [address], [place] [address] 4981 16 May, 2017 Dental examination Z01.20 [facility] [id number], [place] [address]- 4590 08 May, 2017 History of delivery, currently O09.219 [facility] [id number] [place] [address] 91349- 3103 May, 20 weeks gestation of Z3A.20 ; care, subsequent in second trimester Z34.82 ; History of delivery, currently O09.219 and Abnormal quad screen O28.0 [facility] [id number] [place] [address] 87661- 8644 May, [facility] [id number] [place] [address] 98677- 4023 Apr, Elevated blood sugar level R73.9 and Glucosuria R81 [facility] [id number] [place] [address] 95331- 9861 Apr, Elevated blood sugar level R73.9 and Glucosuria R81 [facility] [id number] [place] [address] 50946- 0641 Apr, Elevated blood sugar level R73.9 [facility] [id number] [place] [address] 76555- 5496 Apr, [facility] [id number] [place] [address] 39664- 9527 Apr, 16 weeks gestation of Z3A.16 ; care, subsequent in second trimester Z34.82 ; Encounter for immunization Z23 and Glucosuria R81 [facility] [id number] [place] [address] 89714- 7722 Mar, 12 weeks gestation of Z3A.12 [facility] [id number] [place] [address] 79421- 7659 Feb, [facility] [id number] [place] [address] 66844- 1203 Feb, care, subsequent in first trimester Z34.81 and 8 weeks gestation of Z3A.08 [facility] [id number] [place] [address] 83386- 6241 Jan, [facility] [id number] [place] [address] 52029- 7412 Jul, Encounter for test, result unknown Z32.00 [facility] [id number] [place] [address] 27957- 7806 Jun, control counseling Z30.9 and Insomnia, unspecified type G47.00 [facility] [id number] [place] [address] 64904- 3755 Sep, Encounter for test Z32.00 [facility] [id number] [place] [address] 38477- 1387 Jul, [facility] [address] 83931- 6307 Jul, Well woman exam Z01.419 ; Encounter for screening for malignant neoplasm of cervix Z12.4 ; Vaginal discharge N89.8 ; Routine screening for STI (sexually transmitted infection) Z11.3 ; Encounter for prescription for transdermal contraceptive Z30.49 ; Nausea with vomiting, unspecified R11.2 ; Menstrual migraine without status migrainosus, not intractable G43.829 and History of anxiety Z86.59 [place] [facility] [address] 89900- 2617 Jun, Encounter for surveillance of transdermal contraceptive Z30.49 and Sauceda F48.9 [facility] [id number] [place] [address] 86660- 7172 Oct, [facility] [id number] [place] [address] 95128- 7787 Oct, [facility] [id number] [place] [address] 17582- 7925 Jul, [facility] [id number] [place] [address] 99990- 8433 Jul, [facility] [id number] [place] [address] 98860- 6473 Jul, [facility] [address] 49606- 2626 Jul, [facility] [id number] [place] [address] 32444- 6542 Jul, [facility] [address] 25053- 8545 Jul, [facility] [place] [facility] [address] [id number] [place] 4636 Jun, [facility] [place] [facility] [address] [id number] [place] [address]- 6419 Jun, [facility] [place] [facility] [address] [id number] [place] [address]- 0926 May, [facility] [place] [facility] [address] [id number] [place] [address]- 6675 May, [facility] [place] [facility] [address] [id number] [place] [address]- 1025 May, [facility] [place] [facility] [address] [id number] [place] [address]- 7629 May, [facility] [place] [facility] [address] [id number] [place] [address]- 6489 Feb, [facility] [place] [facility] [address] [id number] [place] [address]- 0952 Feb, [facility] [place] [facility] [address] [id number] [place] [address]- 9522 Feb, [facility] [place] [facility] [address] [id number] [place] [address]- 4091 Feb, [facility] [place] [facility] [address] [id number] [place] [address]- 7690 Oct, [facility] [place] [facility] [address] [id number] [place] [address]- 6293 Oct, [facility] [place] [facility] [address] [id number] [place] [address]- 8922 Sep, [facility] [place] [facility] [address] [id number] [place] [address]- 3346 Sep, [facility] [place] [facility] [address] [id number] [place] [address]- 3906 Sep, [facility] [place] [facility] [address] [id number] [place] [address] 2546 Sep, [facility] [address] [id number] [place] [address]- 4438 Aug, [facility] [place] [facility] [address] [id number] [place] [address]- 2006 Aug, [facility] [place] [facility] [address] [id number] [place] [address]- 0031 Jul, [facility] [place] [facility] [address] [id number] [place] [address]- 4763 Jul, [facility] [place] [facility] [address] [id number] [place] [address]- 2733 Jun, [facility] [place] [facility] [address] [id number] [place] [address]- 2680 Jun, [facility] [place] [facility] [address] [id number] [place] [address]- 9389 Jun, [facility] [address] [id number] [place] [address]- 5873 Jun, [facility] [place] [facility] [address] [id number] [place] [address]- 7580 Jun, [facility] [address] [facility] [id number] [place] 3931 May, [facility] [place] [facility] [address] [id number] [place] [address]- 5237 May, [facility] [place] [facility] [address] [id number] [place] [address]- 1474 May, [facility] [place] [facility] [address] [id number] [place] [address]- 5273 May, [facility] [place] [facility] [address] [id number] [place] [address]- 2546 Apr, [facility] [place] [facility] [address] [id number] [place] [address]- 7866 Apr, [facility] [address] [id number] [place] [address]- 0141 Apr, [facility] [place] [facility] [address] [id number] [place] [address]- 6468 Feb, [facility] [place] [facility] [address] [id number] [place] [address]- 7124 Jan, [facility] [place] [facility] [address] [id number] [place] [address]- 1574 Aug, [facility] [place] [facility] [address] [id number] [place] [address]- 9562 Aug, [facility] [place] [facility] [address] [id number] [place] [address]- 6505 Aug, [facility] [place] [facility] [address] [id number] [place] [address]- 0483 Aug, [facility] [place] [facility] [address] [id number] [place] [address]- 1135 Aug, [facility] [place] [facility] [address] [id number] [place] [address]- 5832 Aug, [facility] [place] [facility] [address] [id number] [place] [address]- 5227 Jul, [facility] [place] [facility] [address] [id number] [place] [address]- 8598 Jul, [facility] [place] [facility] [address] [id number] [place] [address]- 1150 Jul, [facility] [place] [facility] [address] [id number] [place] [address]- 8402 Jul, [facility] [place] [facility] [address] [id number] [place] [address]- 7220 Jul, [facility] [place] [facility] [address] [id number] [place] [address]- 2053 Jul, [facility] [place] [facility] [address] [id number] [place] [address]- 4562 08 Jul, 2012 [facility] [address] [id number] [place] [address]- 5514 Jun, [facility] [place] [facility] [address] [id number] [place] [address]- 1916 Jun, [facility] [address] [id number] [place] [address]- 9804 Jun, [facility] [address] [id number] [place] [address]- 0025 Jun, [facility] [address] [id number] [place] [address]- 0111 Jun, [facility] [address] [id number] [place] [address]- 7471 Jun, [facility] [address] [id number] [place] [address]- 8923 Jun, [facility] [address] [id number] [place] [address]- 9984 Jun, [facility] [address] [id number] [place] [address]- 5119 Jun, [facility] [address] [id number] [place] [address]- 9794 Jun, [facility] [place] [facility] [address] [id number] [place] [address]- 0162 May, [facility] [address] [id number] [place] [address]- 9220 May, [facility] [place] [facility] [address] [id number] [place] [address]- 0786 May, [facility] [place] [facility] [address] [id number] [place] [address]- 9907 May, [facility] [place] [facility] [address] [id number] [place] [address]- 1520 May, [facility] [place] [facility] [address] [id number] [place] [address]- 4771 Apr, [facility] [place] [facility] [address] [id number] [place] [address]- 9009 Apr, [facility] [place] [facility] [address] [id number] [place] [address]- 3815 Apr, [facility] [place] [facility] [address] [id number] [place] [address]- 2114 Apr, [facility] [place] [facility] [address] [id number] [place] [address]- 1994 Apr, [facility] [place] [facility] [address] [id number] [place] [address]- 2918 25 Mar, 2012 [facility] [place] [facility] [address] [id number] [place] [address]- 9280 20 Mar, 2012 [facility] [place] [facility] [address] [id number] [place] [address]- 8907 12 Mar, 2012 [facility] [place] [facility] [address] [id number] [place] [address]- 3815 07 Mar, 2012 [facility] [place] [facility] [address] [id number], [place] [address]- 4493 06 Mar, 2012 [facility] [place] [facility] [address] [id number], [place] [address]- 5253 05 Mar, 2012 [facility] [place] [facility] [address] [id number], [place] [address]- 0542 Feb, [facility] [place] [facility] [address] [id number] [place] [address]- 5930 Feb, [facility] [place] [facility] [address] [id number] [place] [address]- 4515 Feb, [facility] [place] [facility] [address] [id number], [place] [address]- 0172 Feb, [facility] [place] [facility] [address] [id number], [place] [address]- 9822 Feb, [facility] [place] [facility] [address] [id number] [place] [address]- 0760 Jan, [facility] [place] [facility] [address] [id number] [place] [address]- 8435 Jan, [facility] [place] [facility] [address] [id number] [place] [address]- 8564 Jan, [facility] [place] [facility] [address] [id number] [place] [address]- 3072 Jan, [facility] [place] [facility] [address] [id number] [place] [address]- 6223 Jan, [facility] [place] [facility] [address] [id number] [place] [address]- 0834 Jan, [facility] [place] [facility] [address] [id number] [place] [address]- 7499 Dec, [facility] [place] [facility] [address] [id number] [place] [address]- 5312 Dec, [facility] [place] [facility] [address] [id number] [place] [address]- 5588 Dec, [facility] [place] [facility] [address] [id number] [place] [address]- 1466 Dec, [facility] [place] [facility] [address] [id number] [place] [address]- 7204 Dec, [facility] [place] [facility] [address] [id number] [place] [address]- 0787 Dec, [facility] [place] [facility] [address] [id number] [place] [address]- 8795 Dec, [facility] [place] [facility] [address] [id number] [place] [address]- 3418 November, [facility] [place] [facility] [address] [id number] [place] [address]- 1358 November, [facility] [place] [facility] [address] [id number] [place] [address]- 4539 November, [facility] [place] [facility] [address] [id number] [place] [address]- 3290 Oct, [facility] [place] [facility] [address] [id number] [place] [address]- 5860 Oct, [facility] [place] [facility] [address] [id number] [place] [address]- 4807 Oct, [facility] [place] [facility] [address] [id number] [place] [address]- 6339 Sep, [facility] [place] [facility] [address] [id number] [place] [address]- 3834 Sep, [facility] [place] [facility] [address] [id number] [place] [address]- 9216 Sep, [facility] [place] [facility] [address] [id number] [place] [address]- 6697 Sep, [facility] [place] [facility] [address] [id number] [place] [address]- 0051 Sep, [facility] [place] [facility] [address] [id number] [place] [address]- 2614 Aug, [facility] [place] [facility] [address] [id number] [place] [address]- 5920 Aug, [facility] [place] [facility] [address] [id number] [place] [address]- 0662 Aug, [facility] [place] [facility] [address] [id number] [place] [address]- 0894 Aug, [facility] [place] [facility] [address] [id number] [place] [address]- 9067 Jul, [facility] [place] [facility] [address] [id number] [place] [address]- 5541 Jul, [facility] [place] [facility] [address] [id number] [place] [address]- 9410 28 Jul, 2011 [facility] [place] [facility] [address] [id number] [place] [address]- 1654 Jul, [facility] [place] [facility] [address] [id number] [place] [address]- 7125 18 Jul, 2011 [facility] [place] [facility] [address] [id number] [place] [address]- 0120 12 Jul, 2011 [facility] [place] [facility] [address] [id number] [place] [address]- 8293 11 Jul, 2011 [facility] [place] [facility] [address] [id number] [place] [address]- 8405 10 Jul, 2011 [facility] [place] [facility] [address] [id number] [place] [address]- 9066 16 Jun, 2011 [facility] [place] [facility] [address] [id number] [place] [address]- 6186 Jun, [facility] [place] [facility] [address] [id number] [place] [address]- 0033 12 Jun, 2011 [facility] [place] [facility] [address] [id number] [place] [address]- 4497 06 Jun, 2011 [facility] [place] [facility] [address] [id number] [place] [address]- 6976 14 May, 2011 [facility] [place] [facility] [address] [id number] [place] [address]- 6224 31 Apr, 2011 [facility] [place] [facility] [address] [id number] [place] [address] 13 Mar, 2011 [facility] [place] [facility] [address] [id number] [place] [address] 16 Dec, 2010 [facility] [place] [facility] [address] [id number] [place] [address] 10 Aug, 2010 [facility] [place] [facility] [address] [id number] [place] [address] 11 Jul, 2010 [facility] [place] [facility] [id number] [address] Sep, [facility] [id number] [place] [address] Jul, [facility] [id number] [place] [address] Jun, [facility] [id number] [place] [address] Jun, [facility] [id number] [place] [address] May, [facility] [id number] [place] [address] Apr, [facility] [id number] [address] Apr, [facility] [id number] [place] [address] Apr, [facility] [id number] [place] [address] Feb, [facility] [id number] [place] [address] Feb, [facility] [id number], [place] [address] Jan, [facility] [id number], [place] [address] November, IMMUNIZATIONS No Known Immunizations SOCIAL HISTORY [...]
--- OUTSIDE RECORDS SUMMARY | 2018-06-14 20:52 | XMS REPORT ---
Author Author NORMA HAGEN [facility] Address [address] [place] [address] Care Team Providers Care Manager Privacy Name Role Phone XIAO NORMA Unavailable PROBLEMS Type Condition ICD9-CM Code FMX05-RM Code Onset Dates Condition Status SNOMED Code Problem Menstrual migraine without status migrainosus, not intractable G43.829 Active 36192854 Problem Vaginal bleeding N93.9 Active 974403345 Problem Other chronic pain G89.29 Active 98914459 Problem Insomnia, unspecified type G47.00 Active 983881420 Problem History of anxiety Z86.59 Active 971321345 Problem Difficulty of mother performing R63.3 Active 709335084 Problem Rheumatoid arthritis with positive rheumatoid factor, involving unspecified site M05.9 Active [id number] ALLERGIES No Information ENCOUNTERS Encounter Location Date Diagnosis [facility] [id number] [place] [address] 82059- 7025 Jan, [facility] [id number] [place] [address] 56367- 3423 Jan, [facility] [id number] [place] [address] 79937- 4965 Jan, [facility] [id number] [place] [address] 22181- 7314 Jan, [facility] [id number] [place] [address] 61746- 7117 Dec, Pelvic pain R10.2 and Vaginal bleeding N93.9 [facility] [address] 29854- 8448 Dec, [facility] [id number] [place] [address] 20963- 3329 Dec, [facility] [address], [place] [address] Dec, Screening, deficiency anemia, iron Z13.0 [address] [id number] [place] [address] 47795- 5276 Oct, Rheumatoid arthritis with positive rheumatoid factor, involving unspecified site M05.9 [place] [id number] [place] [address] 59528- 4405 Oct, Rheumatoid arthritis with positive rheumatoid factor, involving unspecified site M05.9 [place] [id number] [place] [address] 55467- 9295 Oct, Closed nondisplaced fracture of third metatarsal bone of right foot with routine healing, subsequent encounter S92.334D ; Closed nondisplaced fracture of second metatarsal bone of right foot with routine healing, subsequent encounter S92.324D ; Closed nondisplaced fracture of phalanx of left great toe with routine healing, unspecified phalanx, subsequent encounter S92.405D and Other chronic pain G89.29 [place] [id number] [place] [address] 88617- 2659 Oct, Closed nondisplaced fracture of third metatarsal [...] positive rheumatoid factor, involving unspecified site M05.9 [place] [id number], [place] [address] 5706 Oct, [place] [id number] [place] [address] 22819- 3256 Oct, Injury of finger of right hand, initial encounter S69.91XA and Closed displaced fracture of distal phalanx of right middle finger, initial encounter S62.632A [place] [address], [place] [address]- 3291 Sep, Mastitis N61.0 and MRSA (methicillin resistant staph aureus ) culture positive Z22.322 [place] [address], [place] [address] 1112 Sep, [facility] [address], [place] [address]- 2383 Sep, Difficulty of mother performing R63.3 [place] [address], [place] [address]- 4066 Sep, Acute mastitis of left breast N61.0 [facility] [id number] [place] [address] 83932 -1511 Sep, Abscess L02.91 [place] [address], [place] [address]- 3841 Sep, [place] [id number] [place] [address] 08272- 3361 Jun, [place] [id number], [place] [address]- 7363 Jun, care, subsequent in second trimester Z34.82 ; Placenta previa in second trimester O44.02 ; Abnormal quad screen O28.0 ; History of delivery, currently O09.219 and 24 weeks gestation of Z3A.24 [place] [address], [place] [address]- 8381 16 May, 2017 Dental examination Z01.20 [place] [id number], [place] [address]- 6986 08 May, 2017 History of delivery, currently O09.219 [place] [id number] [place] [address] 90778- 0172 07 May, 2017 [place] [id number], [place] [address]- 9744 May, 20 weeks gestation of Z3A.20 ; care, subsequent in second trimester Z34.82 ; History of delivery, currently O09.219 and Abnormal quad screen O28.0 [place] [id number] [place] [address] 62924- 9115 Apr, Elevated blood sugar level R73.9 and Glucosuria R81 [place] [id number] [place] [address] 48478- 5550 Apr, Elevated blood sugar level R73.9 and Glucosuria R81 [place] [id number] [place] [address] 50838- 5564 Apr, Elevated blood sugar level R73.9 [place] [id number] [place] [address] 53488- 8617 Apr, [place] [facility] [id number] [place] [address] 97653- 2942 Apr, 16 weeks gestation of Z3A.16 ; care, subsequent in second trimester Z34.82 ; Encounter for immunization Z23 and Glucosuria R81 [place] [id number] [place] [address] 73271- 6859 Mar, 12 weeks gestation of Z3A.12 [place] [id number] [place] [address] 75738- 3123 Feb, [place] [id number] [place] [address] 91321- 2761 Feb, care, subsequent in first trimester Z34.81 and 8 weeks gestation of Z3A.08 [place] [id number] [place] [address] 05137- 9256 Jan, [address] 0[address]- 5943 Jul, Encounter for test, result unknown Z32.00 [place] [id number] [place] [address] 53172- 4458 Jun, control counseling Z30.9 and Insomnia, unspecified type G47.00 [facility] [id number] [place] [address] 78993- 6840 Sep, Encounter for test Z32.00 [facility] [id number] [place] [address] 46867- 8405 Jul, [facility] [id number] [place] [address] 18631- 7821 Jul, Well woman exam Z01.419 ; Encounter for screening for malignant neoplasm of cervix Z12.4 ; Vaginal discharge N89.8 ; Routine screening for STI (sexually transmitted infection) Z11.3 ; Encounter for prescription for transdermal contraceptive Z30.49 ; Nausea with vomiting, unspecified R11.2 ; Menstrual migraine without status migrainosus, not intractable G43.829 and History of anxiety Z86.59 [facility] [id number] [place] [address] 65685- 6401 Jun, Encounter for surveillance of transdermal contraceptive Z30.49 and Sauceda F48.9 [facility] [id number] [place] [address] 87587- 8557 Oct, [facility] [id number] [place] [address] 82963- 7084 Oct, [facility] [id number] [place] [address] 04255- 1363 Jul, [facility] [id number] [place] [address] 80776- 8975 Jul, [facility] [id number] [place] [address] 86798- 7801 Jul, [facility] [id number] [place] [address] 37261- 3591 Jul, [facility] [id number] [place] [address] 61311- 9756 Jul, [facility] [id number] [place] [address] 20038- 1165 Jul, [facility] [place] [facility] [address] [id number] [place] 9066 Jun, [facility] [place] [facility] [address] [id number] [place] [address]- 1463 Jun, [facility] [place] [facility] [address] [id number] [place] 6701 May, [facility] [place] [facility] [address] [id number] [place] [address]- 7536 May, [facility] [place] [facility] [address] [id number] [place] [address]- 5827 May, [facility] [place] [facility] [address] [id number] [place] [address]- 4447 May, [facility] [place] [facility] [address] [id number] [place] [address]- 2143 Feb, [facility] [place] [facility] [address] [id number] [place] [address]- 3780 Feb, [facility] [place] [facility] [address] [id number] [place] [address]- 0692 Feb, [facility] [place] [facility] [address] [id number] [place] [address]- 4555 Feb, [facility] [place] [facility] [address] [id number] [place] [address]- 5664 Oct, [facility] [place] [facility] [address] [id number] [place] [address]- 4099 Oct, [facility] [place] [facility] [address] [id number] [place] [address]- 5497 Sep, [facility] [place] [facility] [address] [id number] [place] 6816 Sep, [facility] [place] [facility] [address] [id number] [place] 5017 Sep, [facility] [place] [facility] [address] [id number] [place] [address]- 4270 Sep, [facility] [address] [id number] [place] [address]- 0786 Aug, [facility] [address] [id number] [place] 7956 Aug, [facility] [address] [id number] [place] [address]- 2800 Jul, [facility] [address] [id number] [place] [address]- 7749 Jul, [facility] [address] [id number] [place] 1439 Jun, [facility] [address] [id number] [place] [address]- 2468 Jun, [facility] [address] [facility] [id number] [place] [address]- 6536 Jun, [facility] [address] [facility] [id number] [place] [address]- 1137 Jun, [facility] [address] [facility] [id number] [place] [address]- 6757 Jun, [facility] [address] [facility] [id number] [place] [address]- 0740 May, [facility] [address] [id number] [place] [address]- 1602 May, [facility] [place] [facility] [address] [facility] [id number] [place] [address]- 3709 May, [facility] [place] [facility] [address] [id number] [place] [address]- 8183 May, [facility] [place] [facility] [address] [facility] [id number] [place] 0502 Apr, [facility] [place] [facility] [address] [id number] [place] [address]- 3492 Apr, [facility] [place] [facility] [address] [id number] [place] [address]- 9756 Apr, [facility] [place] [facility] [address] [id number] [place] [address]- 2320 Feb, [facility] [address] [id number] [place] [address]- 5470 Jan, [facility] [place] [facility] [address] [id number] [place] [address]- 6521 Aug, [facility] [address] [id number] [place] [address]- 6515 Aug, [facility] [place] [facility] [address] [id number] [place] [address]- 4821 Aug, [facility] [address] [id number] [place] [address]- 7333 Aug, [facility] [place] [facility] [address] [id number] [place] [address]- 6054 Aug, [facility] [place] [facility] [address] [id number] [place] [address]- 4772 Aug, [facility] [place] [facility] [address] [id number] [place] [address]- 0108 Jul, [facility] [place] [facility] [address] [id number] [place] [address]- 0574 Jul, [facility] [place] [facility] [address] [id number], [place] [address]- 8432 Jul, [facility] [place] [facility] [address] [id number] [place] [address]- 8137 Jul, [facility] [place] [facility] [address] [id number] [place] [address]- 7511 16 Jul, 2012 [facility] [place] [facility] [address] [id number] [place] [address]- 6612 Jul, [facility] [place] [facility] [address] [id number] [place] [address]- 5535 08 Jul, 2012 [facility] [place] [facility] [address] [id number] [place] 2825 Jun, [facility] [place] [facility] [address] [id number] [place] 3426 Jun, [facility] [place] [facility] [address] [id number] [place] [address]- 0925 Jun, [facility] [place] [facility] [address] [id number] [place] [address]- 8877 Jun, [facility] [place] [facility] [address] [id number] [place] [address]- 1764 Jun, [facility] [place] [facility] [address] [id number] [place] [address]- 6093 Jun, [facility] [place] [facility] [address] [id number] [place] [address]- 2984 Jun, [facility] [place] [facility] [address] [id number] [place] [address]- 4983 Jun, [facility] [place] [facility] [address] [id number] [place] [address]- 3923 Jun, [facility] [place] [facility] [address] [facility] [id number] [place] [address]- 7590 Jun, [facility] [place] [facility] [address] [id number] [place] [address]- 5126 May, [facility] [place] [facility] [address] [id number] [place] [address]- 7357 May, [facility] [place] [facility] [address] [id number] [place] [address]- 1708 May, [facility] [place] [facility] [address] [facility] [id number] [place] [address]- 2824 May, [facility] [place] [facility] [address] [id number] [place] [address]- 2283 May, [facility] [place] [facility] [address] [id number] [place] [address]- 7874 Apr, [facility] [place] [facility] [address] [id number] [place] [address]- 7722 Apr, [facility] [place] [facility] [address] [id number] [place] [address]- 8656 Apr, [facility] [place] [facility] [address] [id number] [place] [address]- 8904 15 Apr, 2012 [facility] [place] [facility] [address] [id number] [place] [address]- 9138 Apr, [facility] [place] [facility] [address] [id number] [place] [address]- 8825 25 Mar, 2012 [facility] [place] [facility] [address] [id number] [place] [address]- 2128 20 Mar, 2012 [facility] [place] [facility] [address] [id number] [place] [address]- 4377 12 Mar, 2012 [facility] [place] [facility] [address] [id number] [place] [address]- 5070 07 Mar, 2012 [facility] [place] [facility] [address] [id number] [place] [address]- 7997 06 Mar, 2012 [facility] [place] [facility] [address] [id number] [place] [address]- 8455 05 Mar, 2012 [facility] [place] [facility] [address] [id number] [place] [address]- 8511 Feb, [facility] [place] [facility] [address] [id number] [place] [address]- 9567 Feb, [facility] [place] [facility] [address] [id number] [place] [address]- 8099 Feb, [facility] [place] [facility] [address] [id number] [place] [address]- 8884 Feb, [facility] [place] [facility] [address] [id number] [place] [address]- 7034 Feb, [facility] [place] [facility] [address] [id number] [place] [address]- 0436 Jan, [facility] [place] [facility] [address] [id number] [place] [address]- 0282 Jan, [facility] [place] [facility] [address] [id number] [place] [address]- 8267 Jan, [facility] [place] [facility] [address] [id number] [place] [address]- 9246 Jan, [facility] [place] [facility] [address] [id number] [place] [address]- 2422 Jan, [facility] [place] [facility] [address] [id number] [place] [address]- 9136 Jan, [facility] [place] [facility] [address] [id number] [place] [address]- 6544 Dec, [facility] [place] [facility] [address] [id number] [place] [address]- 6195 Dec, [facility] [place] [facility] [address] [id number] [place] [address]- 7528 Dec, [facility] [place] [facility] [address] [id number] [place] [address]- 3213 Dec, [facility] [place] [facility] [address] [id number] [place] [address]- 0984 Dec, [facility] [place] [facility] [address] [id number] [place] [address]- 9222 Dec, [facility] [place] [facility] [address] [id number] [place] [address]- 4900 Dec, [facility] [place] [facility] [address] [id number] [place] [address]- 6234 November, [facility] [place] [facility] [address] [id number] [place] [address]- 6223 November, [facility] [place] [facility] [address] [id number] [place] [address] 2546 November, [facility] [address] [id number] [place] [address]- 0233 Oct, [facility] [place] [facility] [address] [id number] [place] [address]- 0706 Oct, [facility] [address] [id number] [place] [address]- 6006 Oct, [facility] [place] [facility] [address] [id number] [place] [address]- 2971 Sep, [facility] [address] [id number] [place] [address]- 0087 Sep, [facility] [address] [id number] [place] [address]- 8746 Sep, [facility] [address] [id number] [place] [address]- 5455 Sep, [facility] [address] [id number] [place] [address]- 3149 Sep, [facility] [address] [id number] [place] [address]- 2448 Aug, [facility] [address] [id number] [place] [address]- 8819 Aug, [facility] [place] [facility] [address] [id number] [place] [address]- 8886 Aug, [facility] [address] [id number] [place] [address]- 0616 Aug, [facility] [place] [facility] [address] [id number] [place] [address]- 0386 Jul, [facility] [place] [facility] [address] [id number] [place] [address]- 4426 Jul, [facility] [place] [facility] [address] [id number] [place] [address]- 0175 28 Jul, 2011 [facility] [address] [id number] [place] [address]- 3871 27 Jul, 2011 [facility] [place] [facility] [address] [id number] [place] [address]- 7138 18 Jul, 2011 [facility] [place] [facility] [address] [id number] [place] [address]- 2153 12 Jul, 2011 [facility] [place] [facility] [address] [id number] [place] [address]- 7769 11 Jul, 2011 [facility] [address] [id number] [place] [address]- 4210 10 Jul, 2011 [facility] [address] [id number] [place] [address]- 5466 16 Jun, 2011 [facility] [place] [facility] [address] [id number] [place] [address]- 1554 Jun, [facility] [place] [facility] [address] [id number] [place] [address]- 4673 12 Jun, 2011 [facility] [place] [facility] [address] [id number] [place] [address]- 5705 06 Jun, 2011 [facility] [place] [facility] [address] [facility] [id number], [place] [address]- 0673 14 May, 2011 [facility] [place] [facility] [address] [id number], [place] [address]- 4608 31 Apr, 2011 [facility] [place] [facility] [address] [id number], [place] [address]- 0363 13 Mar, 2011 [facility] [place] [facility] [address] [id number] [place] [address]- 4034 16 Dec, 2010 [facility] [place] [facility] [address] [id number], [place] [address]- 8507 10 Aug, 2010 [facility] [place] [facility] [address] [id number], [place] [address] 11 Jul, 2010 [facility] [place] [facility] [id number] [address] Sep, [facility] [id number], [place] [address] Jul, [facility] [id number], [place] [address] Jun, [facility] [id number], [place] [address] Jun, [facility] [id number], [place] [address] May, [facility] [id number] [place] [address] Apr, [facility] [id number] [address] Apr, [facility] [id number] [place] [address] Apr, [facility] [id number] [address] Feb, [facility] [id number] [address] Feb, [facility] [id number], [place] [address] Jan, [facility] [id number], [place] [address] November, IMMUNIZATIONS No Known Immunizations SOCIAL HISTORY Never Assessed REASON FOR VISIT Lab [facility] PLAN OF CARE VITAL SIGNS MEDICATIONS Unknown Medications RESULTS Name Result Date Reference Range HEMOGLOBIN (IN HOUSE) 2017-12-13 HEMOGLOBIN 10.4 11.5 - 16 gm/dL Lot # [id number] Exp date 04/22/2019 PROCEDURES Procedure Date Ordered Result Body Site HEMOGLOBIN December 13, 2017 INSTRUCTIONS MEDICATIONS ADMINISTERED No Known Medications MEDICAL (GENERAL) HISTORY Type Description Date Medical History Arthritis Surgical History cholecystectomy Surgical History wisdom teeth extraction Surgical History Partial hysterectomy 2018 Hospitalization History child Hospitalization History colitis
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
[2018-06-14] MEDS ORDERED: ONDANSETRON 4 MG/2 ML (SDV) Z0FRAN IVP ONE (21:45)
[2018-06-14] MEDS ORDERED: NS IV 1000 ML 1,000 ML IV SCH (21:45)
[2018-06-14 21:53] LABS: BASOPHILS % (AUTO) 0 % (0-10); EOSINOPHILS # (AUTO) 0.1 10^3/uL (0.0-0.3); EOSINOPHILS % (AUTO) 1 % (0-10); HEMATOCRIT 36 % (35-52); HEMOGLOBIN 12.3 G/DL (11.5-16.0); LYMPHOCYTES # (AUTO) 2.6 X 10^3 (1.0-4.0); LYMPHOCYTES % (AUTO) 52 % (12-44); MEAN CORPUSCULAR HEMOGLOBIN 33 PG (25-34); MEAN CORPUSCULAR HGB CONC 34 G/DL (32-36); MEAN CORPUSCULAR VOLUME 98 FL (80-99); MEAN PLATELET VOLUME 9.2 FL (7.4-10.4); MONOCYTES # (AUTO) 0.3 X 10^3 (0.0-1.0); MONOCYTES % (AUTO) 7 % (0-12); NEUTROPHILS % (AUTO) 40 % (42-75); PLATELET COUNT 341 10^3/uL (130-400); RED CELL DISTRIBUTION WIDTH 12.8 % (10.0-14.5); WHITE BLOOD COUNT 4.9 10^3/uL (4.3-11.0)
--- NOTE | 2018-06-14 22:02 | ED Abdominal Pain ---
General Chief Complaint: Abdominal/GI Problems Stated Complaint: N,V Source of Information: Patient Exam Limitations: No Limitations History of Present Illness Date Seen by Provider: Jun 14, 2018 Time Seen by Provider: 21:45 Initial Comments Patient is a 33-year-old female who presents to the emergency room with complaints of nausea and vomiting for the past 4 days. She denies any diarrhea, abdominal pain, fevers, urinary tract infection symptoms. Timing/Duration: 3-4 Days Associated Symptoms: Nausea/Vomiting Allergies and Home Medications Allergies Coded Allergies: cephalexin (Verified Allergy, Severe, RASH, Pt has received Ampicilin in the past, 08/12/17) codeine (Verified Allergy, Mild, HIVES, FLUSHING, BURNING FEELING, 08/13/17 ) Patient has received Morphine, Hydromorphone and Lortab on previous visits without issue tramadol (Verified Adverse Reaction, Unknown, VOMITING, 07/28/16) Home Medications Hydrocodone Bit/Acetaminophen 1 Tab Tab, 1 EACH PO Q6H PRN for BREAKTHROUGH PAIN Prescribed by: JAKE ROTHMAN on 12/30/17 0103 Hydrocodone/Acetaminophen 1 Each Tablet, 1 EACH PO Q6H PRN for PAIN-SEVERE Prescribed by: ELIUD GALEAS on 10/25/17 1831 Naproxen 500 Mg Tablet, 500 MG PO BID Prescribed by: JAKE ROTHMAN on 02/24/18 2315 Omeprazole 40 Mg Capsule.dr, 40 MG PO DAILY Prescribed by: JAKE ROTHMAN on 02/24/18 2315 Ondansetron HCl 4 Mg Tab, 4 MG PO Q4H PRN for NAUSEA/VOMITING-1ST LINE Prescribed by: SHIRAZ RENEE on 06/14/18 223 Sulfamethoxazole/Trimethoprim 1 Each Tablet, 1 EACH PO BID Prescribed by: JAKE ROTHMAN on 12/14/17 223 Patient Home Medication List Home Medication List Reviewed: Yes Review of Systems Review of Systems Constitutional: no symptoms reported, see HPI Gastrointestinal: See HPI, Nausea, Vomiting All Other Systems Reviewed Negative Unless Noted: Yes Past Zwykqyj-Oguepu-Tupymh Hx Past Med/Social Hx: Reviewed Nursing Past Med/Soc Hx Patient Social History 2nd Hand Smoke Exposure: No Recent Foreign Travel: No Contact w/Someone Who Travel: No Recent Hopitalizations: No Immunizations Up To Date Tetanus Booster (TDap): Unknown PED Vaccines UTD: Yes Date of Influenza Vaccine: Apr 19, 2017 Seasonal Allergies Seasonal Allergies: No Past Medical History Surgeries: Yes (FINGER REPAIR W/ PIN PLACEMENT) Section, Gallbladder, Hysterectomy, Orthopedic Respiratory: No Cardiac: No Neurological: Yes Headaches /Migraines 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 Disorders: No Female 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 Disorders: Ovarian 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 Sexually Transmitted Disease: No HIV/AIDS: No Genitourinary: No Gastrointestinal: No Musculoskeletal: Yes Arthritis, Chronic Back Pain Endocrine: No HEENT: No Cancer: No Psychosocial: Yes Anxiety Integumentary: Yes ("pin in finger removed 12/12/17") Recent Skin Changes Blood Disorders: No Adverse Reaction/Blood Tranf: No Family Medical History Reviewed Nursing Family Hx Arthritis 19 FATHER Hypertension 19 FATHER No Pertinent Family Hx Physical Exam Vital Signs Vital Signs - First Documented 06/14/18 21:35 Temp 97.7 Pulse 80 Resp 18 B/P (MAP) 120/80 (93) Pulse Ox 99 O2 Delivery Room Air Capillary Refill : Height/Weight/BMI Height: 5'4.00" Weight: 115lbs. 0oz. 52.761615pc; 22.6 BMI Method:Stated General Appearance: WD/WN, no apparent distress Respiratory: chest non-tender, lungs clear, normal breath sounds, no respiratory distress, no accessory muscle use Cardiovascular: normal peripheral pulses, regular rate, rhythm, no edema, no gallop, no JVD, no murmur Gastrointestinal: normal bowel sounds, non tender, soft, no organomegaly, no pulsatile mass Extremities: normal capillary refill Neurologic/Psychiatric: alert, normal mood/affect, oriented x 3 Skin: normal color, warm/dry Progress/Results/Core Measures Results/Orders Lab Results Laboratory Tests Test 06/14/18 21:38 06/14/18 22:05 Range/Units White Blood Count 4.9 4.3-11.0 10^3/uL Red Blood Count 3.70 L 4.35-5.85 10^6/uL Hemoglobin 12.3 11.5-16.0 G/DL Hematocrit 36 35-52 % Mean Corpuscular Volume 98 80-99 FL Mean Corpuscular Hemoglobin 33 25-34 PG Mean Corpuscular Hemoglobin Concent 34 32-36 G/DL Red Cell Distribution Width 12.8 10.0-14.5 % Platelet Count 341 130-400 10^3/uL Mean Platelet Volume 9.2 7.4-10.4 FL Neutrophils (%) (Auto) 40 L 42-75 % Lymphocytes (%) (Auto) 52 H 12-44 % Monocytes (%) (Auto) 7 0-12 % Eosinophils (%) (Auto) 1 0-10 % Basophils (%) (Auto) 0 0-10 % Neutrophils # (Auto) 2.0 1.8-7.8 X 10^3 Lymphocytes # (Auto) 2.6 1.0-4.0 X 10^3 Monocytes # (Auto) 0.3 0.0-1.0 X 10^3 Eosinophils # (Auto) 0.1 0.0-0.3 10^3/uL Basophils # (Auto) 0.0 0.0-0.1 10^3/uL Sodium Level 138 135-145 MMOL/L Potassium Level 3.6 3.6-5.0 MMOL/L Chloride Level 107 98-107 MMOL/L Carbon Dioxide Level 20 L 21-32 MMOL/L Anion Gap 11 5-14 MMOL/L Blood Urea Nitrogen 15 7-18 MG/DL Creatinine 0.66 0.60-1.30 MG/DL Estimat Glomerular Filtration Rate > 60 BUN/Creatinine Ratio 23 Glucose Level 101 70-105 MG/DL Calcium Level 9.1 8.5-10.1 MG/DL Corrected Calcium 8.8 8.5-10.1 MG/DL Total Bilirubin 1.2 H 0.1-1.0 MG/DL Aspartate Amino Transf (AST/SGOT) 57 H 5-34 U/L Alanine Aminotransferase (ALT/SGPT) 231 H 0-55 U/L Alkaline Phosphatase 81 40-136 U/L Total Protein 7.0 6.4-8.2 GM/DL Albumin 4.4 3.2-4.5 GM/DL Amylase Level 45 25-125 U/L Lipase 14 8-78 U/L Serum Test, Qualitative NEGATIVE NEGATIVE Hepatitis A IgM Antibody Non-Reactive Non-Reactive Hepatitis B Surface Antigen Non-Reactive Non-Reactive Hepatitis B Core IgM Antibody Non-Reactive Non-Reactive Hepatitis C Antibody Non-Reactive Non-Reactive Urine Color YELLOW Urine Clarity SLIGHTLY CLOUDY Urine pH 5 5-9 Urine Specific [place] 1.015 L 1.016-1.022 Urine Protein 2+ H NEGATIVE Urine Glucose (UA) NEGATIVE NEGATIVE Urine Ketones 3+ H NEGATIVE Urine Nitrite NEGATIVE NEGATIVE Urine Bilirubin 2+ H NEGATIVE Urine Urobilinogen 8 H NORMAL MG/DL Urine Leukocyte Esterase 1+ H NEGATIVE Urine RBC (Auto) 1+ H NEGATIVE Urine RBC RARE /HPF Urine WBC 2-5 /HPF Urine Squamous Epithelial Cells 10-25 H /HPF Urine Crystals NONE /LPF Urine Bacteria FEW H /HPF Urine Casts NONE /LPF Urine Mucus SMALL H /LPF Urine Culture Indicated NO My Orders Orders - SHIRAZ RENEE Comprehensive Metabolic Panel (06/14/18 21:43) Lipase (06/14/18 21:43) Amylase (06/14/18 21:43) Ua Culture If Indicated (06/14/18 21:43) Hcg,Qualitative Serum (06/14/18 21:43) Saline Lock/Iv-Start (06/14/18 21:43) Cbc With Automated Diff (06/14/18 21:43) Ns Iv 1000 Ml (Sodium Chloride 0.9%) (06/14/18 21:45) Ondansetron Injection (Zofran Injectio (06/14/18 21:45) Hepatitis Panel Acute (06/14/18 22:35) Rx-Ondansetron Po (Rx-Zofran Po) (06/14/18 22:35) Medications Given in ED Vital Signs/I&O 06/14/18 06/14/18 21:35 23:16 Temp 97.7 97.7 Pulse 80 83 Resp 18 18 B/P (MAP) 120/80 (93) 115/81 (92) Pulse Ox 99 99 O2 Delivery Room Air Room Air Progress Progress Note : Time: 22:32 Progress Note I have seen and evaluated the patient. I have informed her of her laboratory findings and the elevated liver enzymes. She denies heavy drinking or IV drug use in the past. Hepatitis panel was ordered at this time. She is no longer nauseated at this time. She agrees with plan of care, plans for discharge, close follow up was recommended. Return precautions were given. Departure Impression Primary Impression: Nausea and vomiting Additional Impression: Elevated liver enzymes Disposition: 01 HOME, SELF-CARE Condition: Stable/Unchanged Departure-Patient Inst. Decision time for Depature: 22:32 Referrals: CELE NELSON MD (PCP/Family) Primary Care Physician Patient Instructions: Nausea and Vomiting, Adult (DC) Add. Discharge Instructions: Take medications as directed. Drink plenty of clear liquids to stay hydrated. Follow-up with Dr. Nelson this week for further evaluation of your elevated liver enzymes, call first thing Saturday morning for appointment time. Return back to the emergency room for any worsening symptoms or concerns as needed. All discharge instructions reviewed with patient and/or family. Voiced understanding. Scripts Ondansetron HCl (Zofran) 4 Mg Tab 4 MG PO Q4H PRN for NAUSEA/VOMITING-1ST LINE, #14 TAB Prov: SHIRAZ RENEE 06/14/18 SHIRAZ RENEE Jun 14, 2018 22:02
[2018-06-14 22:06] LABS: ALANINE AMINOTRANSFERASE 231 U/L (0-55); ALBUMIN 4.4 GM/DL (3.2-4.5); ALKALINE PHOSPHATASE 81 U/L (40-136); AMYLASE 45 U/L (25-125); BILIRUBIN,TOTAL 1.2 MG/DL (0.1-1.0); BUN/CREATININE RATIO 23; CALCIUM 9.1 MG/DL (8.5-10.1); CARBON DIOXIDE 20 MMOL/L (21-32); CHLORIDE 107 MMOL/L (98-107); CREATININE SERUM 0.66 MG/DL (0.60-1.30); GFR ESTIMATED > 60; GLUCOSE 101 MG/DL (70-105); LIPASE 14 U/L (8-78); POTASSIUM 3.6 MMOL/L (3.6-5.0); SODIUM 138 MMOL/L (135-145)
[2018-06-14 22:11] LABS: CLARITY,URINE SLIGHTLY CLOUDY; COLOR,URINE YELLOW; GLUCOSE, URINE (UA) NEGATIVE (NEGATIVE); KETONES,URINE 3+ (NEGATIVE); LEUKOCYTE ESTERASE ,URINE 1+ (NEGATIVE); NITRITE,URINE NEGATIVE (NEGATIVE); PH,URINE 5 (5-9); PROTEIN,URINE 2+ (NEGATIVE); UROBILINOGEN,URINE 8 MG/DL (NORMAL)
[2018-06-14 22:18] LABS: BILIRUBIN,URINE 2+ (NEGATIVE)
[2018-06-14 22:22] LABS: BACTERIA,URINE FEW /HPF; RBC,URINE RARE /HPF
[2018-06-14] MEDS ORDERED: ONDN4T PO (22:34)
[2018-06-14] MEDS ORDERED: RX-ONDANSETRON 4 MG ODT (ZOFRAN) PPK #4 PO STA (22:35)
[2018-06-14 23:16] VITALS: BP 115/81
[2018-06-16 13:47] LABS: HEPATITIS C ANTIBODY C Non-Reactive (Non-Reactive)
== END 2018-06-14 23:16 | disposition home or self-care (01) ==
LOC: EDUNIT# 20:41 → ER 20:42
DX: R11.2 Nausea with vomiting, unspecified (principal); R94.5 Abnormal results of liver function studies; G43.909 Migraine, unspecified, not intractable, without status migrainosus; F41.9 Anxiety disorder, unspecified; Z87.448 Personal history of other diseases of urinary system; Z88.5 Allergy status to narcotic agent; Z88.6 Allergy status to analgesic agent; Z90.710 Acquired absence of both cervix and uterus; Z98.890 Other specified postprocedural states
CPT/HCPCS: 36415; 80053; 80074; 81000; 82150; 83690; 84703; 85025; 96361; 96374

== ENCOUNTER 2018-07-10 23:24 | Emergency (ER) | payer SELFPAY ==
[~2018-07-10] VITALS: Ht 162.6 cm; Wt 49.9 kg
[~2018-07-10 23:24] MED LIST changes: +ONDN4T PO
--- OUTSIDE RECORDS SUMMARY | 2018-07-10 23:30 | XMS REPORT ---
Author Author JAGJIT DYSON Organization [facility] Address [address] [place] [address] Care Team Providers Care Check Processor Name Role Phone DYSON JAGJIT Unavailable PROBLEMS Type Condition ICD9-CM Code ZVW05-QK Code Onset Dates Condition Status SNOMED Code Problem History of anxiety Z86.59 Active 750901300 Problem Menstrual migraine without status migrainosus, not intractable G43.829 Active 32226383 Problem Observation of other suspected mental condition Z03.89 Active 29523580 Problem Vaginal bleeding N93.9 Active 060523222 Problem Rheumatoid arthritis with positive rheumatoid factor, involving unspecified site M05.9 Active 550702226 Problem Insomnia, unspecified type G47.00 Active 286648392 Problem Other chronic pain G89.29 Active 88991739 Problem Difficulty of mother performing R63.3 Active [id number] ALLERGIES No Information ENCOUNTERS Encounter Location Date Diagnosis [facility] [address] [place] [address] Jun, [facility] [id number] [place] [address] 18588- 9689 Jun, [facility] [id number] [place] [address] 99246- 1441 Jun, [facility] [address] [place] [address] Jun, Observation of other suspected mental condition Z03.89 [facility] [id number] [place] [address] 44144- 0266 May, [facility] [address] [place] [address] May, Observation of other suspected mental condition Z03.89 [facility] [id number] [place] [address] 04028- 1101 May, [facility] [address] [address] May, Family discord Z63.8 [facility] [address] [id number] Mar, Dental examination Z01.20 [facility] [address] [address] Jan, [facility] [id number] [place] [address] 44056- 2206 Jan, [facility] [id number] [place] [address] 65945- 5323 Jan, [facility] [id number] [place] [address] 40675- 1559 Jan, [facility] [id number] [place] [address] 78279- 5418 Dec, Pelvic pain R10.2 and Vaginal bleeding N93.9 [facility] [address] [address] 240[address] Dec, [facility] [id number] [place] [address] 28537- 9949 Dec, [facility] [id number] [place] [address] 68739- 3303 Dec, Screening, deficiency anemia, iron Z13.0 [facility] [address] [address] Oct, Rheumatoid arthritis with positive rheumatoid factor, involving unspecified site M05.9 [facility] [address], [place] [address] 1038 Oct, Rheumatoid arthritis with positive rheumatoid factor, involving unspecified site M05.9 [facility] [address] [address] Oct, Closed nondisplaced fracture of third metatarsal bone of right foot with routine healing, subsequent encounter S92.334D ; Closed nondisplaced fracture of second metatarsal bone of right foot with routine healing, subsequent encounter S92.324D ; Closed nondisplaced fracture of phalanx of left great toe with routine healing, unspecified phalanx, subsequent encounter S92.405D and Other chronic pain G89.29 [facility] [address] [id number] [address] 17 Oct, 2017 Closed nondisplaced fracture of [...] positive rheumatoid factor, involving unspecified site M05.9 [facility] [id number] [place] [address] 96457- 0250 Oct, [facility] [id number] [place] [address] 86003- 8332 Oct, Injury of finger of right hand, initial encounter S69.91XA and Closed displaced fracture of distal phalanx of right middle finger, initial encounter S62.632A [facility] [address] [facility] [id number] [address] Sep, Mastitis N61.0 and MRSA (methicillin resistant staph aureus ) culture positive Z22.322 [facility] [address] [id number] [place] [address] 71634- 2266 Sep, [facility] [id number] [place] [address] 92919- 1143 Sep, Difficulty of mother performing R63.3 [facility] [id number] [place] [address] 70759- 6743 Sep, Acute mastitis of left breast N61.0 [facility] [address] [id number] [address] Sep, Abscess L02.91 [facility] [address], [place] [address] 7672 Sep, [facility] [id number] [place] [address] 87439- 4335 Jun, [facility] [id number] [place] [address] 33575- 5419 Jun, care, subsequent in second trimester Z34.82 ; Placenta previa in second trimester O44.02 ; Abnormal quad screen O28.0 ; History of delivery, currently O09.219 and 24 weeks gestation of Z3A.24 [facility] [id number] [place] [address] 22912- 1768 16 May, 2017 Dental examination Z01.20 [facility] [id number] [place] [address] 22905- 5306 08 May, 2017 History of delivery, currently O09.219 [facility] [id number] [place] [address] 61695- 0454 07 May, 2017 20 weeks gestation of Z3A.20 ; care, subsequent in second trimester Z34.82 ; History of delivery, currently O09.219 and Abnormal quad screen O28.0 [facility] [id number] [place] [address] 38644- 0142 May, [facility] [id number] [place] [address] 06351- 0377 Apr, Elevated blood sugar level R73.9 and Glucosuria R81 [facility] [id number] [place] [address] 36980- 0886 Apr, Elevated blood sugar level R73.9 and Glucosuria R81 [facility] [id number] [place] [address] 24648- 7248 Apr, Elevated blood sugar level R73.9 [facility] [id number] [place] [address] 57888- 7319 Apr, [facility] [id number] [place] [address] 33003- 2565 Apr, 16 weeks gestation of Z3A.16 ; care, subsequent in second trimester Z34.82 ; Encounter for immunization Z23 and Glucosuria R81 [facility] [id number] [place] [address] 14485- 7666 08 Mar, 2017 12 weeks gestation of Z3A.12 [place] [address] 47192- 3216 14 Feb, 2017 [place] [address] 03499- 8297 Feb, care, subsequent in first trimester Z34.81 and 8 weeks gestation of Z3A.08 [place] [address] 69771- 9205 Jan, [facility] [address] 55564- 6385 Jul, Encounter for test, result unknown Z32.00 [place] [place] [address] 17449- 3626 Jun, control counseling Z30.9 and Insomnia, unspecified type G47.00 [facility] [id number] [place] [address] 74349- 7607 Sep, Encounter for test Z32.00 [place] [address] 53208- 2844 Jul, [facility] [address] 38108- 4812 Jul, Well woman exam Z01.419 ; Encounter for screening for malignant neoplasm of cervix Z12.4 ; Vaginal discharge N89.8 ; Routine screening for STI (sexually transmitted infection) Z11.3 ; Encounter for prescription for transdermal contraceptive Z30.49 ; Nausea with vomiting, unspecified R11.2 ; Menstrual migraine without status migrainosus, not intractable G43.829 and History of anxiety Z86.59 [facility] [id number] [place] [address] 70882- 2485 Jun, Encounter for surveillance of transdermal contraceptive Z30.49 and Sauceda F48.9 [facility] [id number] [place] [address] 73049- 6723 14 Oct, 2014 [facility] [address] 21861- 1353 Oct, [facility] [id number] [place] [address] 09592- 0093 Jul, [facility] [id number] [place] [address] 81107- 9288 Jul, [facility] [id number] [place] [address] 11683- 7332 Jul, [facility] [id number] [place] [address] 17563- 5938 Jul, [facility] [id number] [place] [address] 99602- 2600 Jul, [facility] [id number] [place] [address] 00508- 7554 Jul, [facility] [id number] [place] [address] 36035- 0954 Jun, [facility] [id number] [place] [address] 93219- 4096 Jun, [facility] [id number] [place] [address] 17767- 1251 May, [facility] [id number] [place] [address] 85516- 4512 May, [facility] [id number] [place] [address] 58045- 0738 May, [facility] [id number] [place] [address] 47021- 9068 May, [facility] [place] [facility] [address] [id number] [place] [address]- 4136 Feb, [facility] [place] [facility] [address] [id number] [place] [address]- 1173 Feb, [facility] [place] [facility] [address] [id number] [place] [address]- 4867 Feb, [facility] [place] [facility] [address] [id number] [place] [address]- 0338 Feb, [facility] [place] [facility] [address] [id number] [place] [address]- 9891 Oct, [facility] [place] [facility] [address] [id number] [place] [address]- 1813 Oct, [facility] [place] [facility] [address] [id number] [place] [address]- 7030 Sep, [facility] [place] [facility] [address] [id number] [place] [address]- 5025 Sep, [facility] [place] [facility] [address] [id number] [place] [address]- 0955 Sep, [facility] [place] [facility] [address] [id number] [place] [address]- 6965 Sep, [facility] [place] [facility] [address] [id number] [place] [address]- 2506 Aug, [facility] [place] [facility] [address] [id number] [place] [address]- 8608 Aug, [facility] [place] [facility] [address] [id number] [place] [address]- 6641 Jul, [facility] [place] [facility] [address] [id number] [place] [address]- 9056 Jul, [facility] [place] [facility] [address] [id number] [place] [address]- 4953 Jun, [facility] [place] [facility] [address] [id number] [place] [address]- 6137 Jun, [facility] [address] [id number] [place] [address]- 0150 Jun, [facility] [place] [facility] [address] [id number] [place] [address]- 0256 Jun, [facility] [address] [id number] [place] [address]- 0166 Jun, [facility] [place] [facility] [address] [id number] [place] [address]- 9244 May, [facility] [address] [id number] [place] [address]- 5512 May, [facility] [place] [facility] [address] [id number] [place] [address]- 0290 May, [facility] [place] [facility] [address] [id number] [place] [address]- 6627 May, [facility] [address] [id number] [place] [address]- 5201 Apr, [facility] [place] [facility] [address] [facility] [id number] [place] [address]- 7879 Apr, [facility] [address] [facility] [id number] [place] [address]- 6294 Apr, [facility] [place] [facility] [address] [id number] [place] [address]- 2546 Feb, [facility] [place] [facility] [address] [id number] [place] [address]- 2546 Jan, [facility] [place] [facility] [address] [id number] [place] [address]- 8776 Aug, [facility] [place] [facility] [address] [id number] [place] [address]- 2546 Aug, [facility] [place] [facility] [address] [id number] [place] [address]- 2688 12 Aug, 2012 [facility] [address] [id number] [place] [address]- 6171 08 Aug, 2012 [facility] [place] [facility] [address] [id number] [place] [address]- 1460 07 Aug, 2012 [facility] [place] [facility] [address] [id number] [place] [address]- 3118 Aug, [facility] [place] [facility] [address] [id number] [place] [address]- 2767 Jul, [facility] [place] [facility] [address] [id number] [place] [address]- 7084 Jul, [facility] [place] [facility] [address] [id number] [place] [address]- 9178 Jul, [facility] [place] [facility] [address] [id number] [place] [address]- 1566 Jul, [facility] [place] [facility] [address] [id number] [place] [address]- 5908 Jul, [facility] [address] [id number] [place] [address]- 5741 Jul, [facility] [place] [facility] [address] [id number] [place] [address]- 5445 Jul, [facility] [place] [facility] [address] [id number] [place] [address]- 5335 Jun, [facility] [place] [facility] [address] [id number], [place] [address]- 1694 Jun, [facility] [place] [facility] [address] [id number] [place] [address]- 7665 Jun, [facility] [place] [facility] [address] [id number] [place] [address]- 8607 Jun, [facility] [place] [facility] [address] [id number] [place] [address]- 1269 Jun, [facility] [place] [facility] [address] [id number] [place] [address]- 0394 Jun, [facility] [address] [id number] [place] [address]- 1470 Jun, [facility] [place] [facility] [address] [id number] [place] 4399 Jun, [facility] [address] [id number] [place] [address]- 6790 Jun, [facility] [place] [facility] [address] [id number] [place] [address]- 8103 Jun, [facility] [place] [facility] [address] [id number] [place] 8692 May, [facility] [place] [facility] [address] [id number] [place] [address]- 6938 May, [facility] [place] [facility] [address] [facility] [id number] [place] [address]- 9412 May, [facility] [place] [facility] [address] [id number] [place] [address]- 3442 May, [facility] [place] [facility] [address] [facility] [id number] [place] [address]- 2849 May, [facility] [place] [facility] [address] [facility] [id number] [place] [address]- 6348 Apr, [facility] [place] [facility] [address] [id number] [place] [address]- 1911 Apr, [facility] [place] [facility] [address] [facility] [id number], [place] [address]- 9756 Apr, [facility] [place] [facility] [address] [id number] [place] [address]- 1044 Apr, [facility] [place] [facility] [address] [facility] [id number] [place] [address]- 3119 Apr, [facility] [place] [facility] [address] [id number], [place] [address]- 3950 Mar, [facility] [place] [facility] [address] [id number] [place] [address]- 8730 20 Mar, 2011 [facility] [place] [facility] [address] [id number] [place] [address]- 7966 12 Mar, 2012 [facility] [place] [facility] [address] [id number] [place] [address]- 6726 07 Mar, 2011 [facility] [place] [facility] [address] [id number] [place] [address]- 2136 06 Mar, 2012 [facility] [place] [facility] [address] [id number] [place] [address]- 9184 05 Mar, 2011 [facility] [place] [facility] [address] [id number] [place] [address]- 8524 Feb, [facility] [place] [facility] [address] [id number] [place] [address]- 9397 Feb, [facility] [place] [facility] [address] [id number] [place] [address]- 8079 Feb, [facility] [place] [facility] [address] [id number] [place] [address]- 0454 Feb, [facility] [place] [facility] [address] [id number] [place] [address]- 1568 Feb, [facility] [place] [facility] [address] [id number] [place] [address]- 4790 Jan, [facility] [place] [facility] [address] [id number] [place] [address]- 5706 Jan, [facility] [place] [facility] [address] [id number] [place] [address]- 5925 Jan, [facility] [place] [facility] [address] [id number] [place] [address]- 5238 Jan, [facility] [place] [facility] [address] [id number] [place] [address]- 8927 Jan, [facility] [place] [facility] [address] [id number] [place] [address]- 5621 Jan, [facility] [place] [facility] [address] [id number] [place] [address]- 3212 Dec, [facility] [place] [facility] [address] [id number] [place] [address]- 4562 Dec, [facility] [place] [facility] [address] [id number] [place] [address]- 5331 Dec, [facility] [place] [facility] [address] [id number] [place] [address]- 7395 Dec, [facility] [place] [facility] [address] [id number] [place] [address]- 3548 Dec, [facility] [place] [facility] [address] [id number] [place] [address]- 5980 Dec, [facility] [place] [facility] [address] [id number] [place] [address]- 1508 Dec, [facility] [place] [facility] [address] [id number] [place] [address]- 5302 November, [facility] [place] [facility] [address] [id number] [place] [address]- 1429 November, [facility] [place] [facility] [address] [id number] [place] [address]- 1963 November, [facility] [place] [facility] [address] [id number] [place] [address]- 6713 Oct, [facility] [place] [facility] [address] [id number] [place] [address]- 0319 Oct, [facility] [place] [facility] [address] [id number] [place] [address]- 1929 Oct, [facility] [place] [facility] [address] [id number] [place] [address]- 0980 Sep, [facility] [place] [facility] [address] [id number] [place] [address]- 7436 Sep, [facility] [place] [facility] [address] [id number] [place] [address]- 6475 05 Sep, 2011 [facility] [place] [facility] [address] [id number] [place] [address]- 0387 Sep, [facility] [place] [facility] [address] [id number] [place] [address]- 4076 Sep, [facility] [place] [facility] [address] [id number] [place] [address]- 2043 Aug, [facility] [place] [facility] [address] [id number] [place] [address]- 3364 Aug, [facility] [place] [facility] [address] [id number] [place] [address]- 1629 Aug, [facility] [place] [facility] [address] [id number] [place] [address]- 0323 Aug, [facility] [place] [facility] [address] [id number] [place] [address]- 2705 30 Jul, 2011 [facility] [place] [facility] [address] [id number] [place] [address]- 4408 Jul, [facility] [place] [facility] [address] [id number] [place] [address] Jul, [facility] [place] [facility] [address] [id number] [place] [address] Jul, [facility] [place] [facility] [address] [id number] [place] [address] Jul, [facility] [place] [facility] [address] [id number] [place] [address] Jul, [facility] [place] [facility] [address] [id number] [place] [address] Jul, [facility] [place] [facility] [address] [id number] [place] [address] 10 Jul, 2011 [facility] [place] [facility] [address] [id number] [place] [address] 16 Jun, 2011 [facility] [place] [facility] [address] [id number] [place] [address] 13 Jun, 2011 [facility] [place] [facility] [address] [id number] [place] [address] 12 Jun, 2011 [facility] [place] [facility] [address] [facility] [id number] [place] [address] 06 Jun, 2011 [facility] [place] [facility] [address] [id number] [place] [address] 14 May, 2011 [facility] [place] [facility] [address] [id number] [place] [address] 31 Apr, 2011 [facility] [place] [facility] [address] [id number] [place] [address] 13 Mar, 2011 [facility] [place] [facility] [address] [id number] [place] [address] 16 Dec, 2010 [facility] [place] [facility] [address] [id number], [place] [address] 10 Aug, 2010 [facility] [place] [facility] [address] [id number], [place] [address] 11 Jul, 2010 [facility] [place] [facility] [address] [id number], [place] [address] 18 Sep, 2009 [facility] [place] [facility] [address] [id number], [place] [address] 12 Jul, 2009 [facility] [place] [facility] [address] [id number], [place] [address] 14 Jun, 2009 [facility] [place] [facility] [address] [id number] [place] [address] 14 Jun, 2009 [facility] [place] [facility] [address] [facility] [id number], [place] [address] 02 May, 2009 [facility] [place] [facility] [address] [facility] [id number], [place] [address] 15 Apr, 2009 [facility] [place] [facility] [address] [id number] [id number] Apr, [facility] [id number], [place] [address] Apr, [facility] [id number] [id number] Feb, [facility] [id number], [place] [address] Feb, [facility] [id number], [place] [address] Jan, [facility] [id number], [place] [address] November, IMMUNIZATIONS No Known Immunizations SOCIAL HISTORY [...]
--- OUTSIDE RECORDS SUMMARY | 2018-07-10 23:31 | XMS REPORT ---
Author Author MILIND RAMIREZ [facility] Address [address] [place] [address] Care Team Providers Care Spout Worker Name Role Phone MILIND RAMIREZ Unavailable PROBLEMS Type Condition ICD9-CM Code UBV91-PC Code Onset Dates Condition Status SNOMED Code Problem History of anxiety Z86.59 Active 094572460 Problem Menstrual migraine without status migrainosus, not intractable G43.829 Active 89076941 Problem Observation of other suspected mental condition Z03.89 Active 84610399 Problem Vaginal bleeding N93.9 Active 886135940 Problem Rheumatoid arthritis with positive rheumatoid factor, involving unspecified site M05.9 Active 727665066 Problem Insomnia, unspecified type G47.00 Active 366901726 Problem Other chronic pain G89.29 Active 45152754 Problem Difficulty of mother performing R63.3 Active [id number] ALLERGIES No Information ENCOUNTERS Encounter Location Date Diagnosis [facility] [address] [place] [address] Jun, [place] [address] [address] Jun, [place] [address] [place] [id number] [place] [address] 40346- 2212 Jun, [facility] [address] [place] [address] Jun, Observation of other suspected mental condition Z03.89 [facility] [address] [place] [id number] [place] [address] 86295- 1835 May, [place] [address] [place] [address] May, Observation of other suspected mental condition Z03.89 [facility] [address] [place] [place] [id number] [place] [address] 98263- 0785 May, [facility] [address] [id number] [address] May, Family discord Z63.8 [facility] [address] [id number] Mar, Dental examination Z01.20 [facility] [address] [address] Jan, [facility] [address] [place] [id number] [place] [address] 84673- 7329 Jan, [facility] [id number] [place] [address] 77275- 7091 Jan, [facility] [address] [place] [id number] [place] [address] 41892- 0096 Jan, [facility] [address] [place] [id number] [place] [address] 32219- 9369 Dec, Pelvic pain R10.2 and Vaginal bleeding N93.9 [facility] [address] [address] Dec, [facility] [address] [place] [id number] [place] [address] 85946- 3600 Dec, [facility] [id number] [place] [address] 53015- 4936 Dec, Screening, deficiency anemia, iron Z13.0 [facility] [id number] [place] [address] 97531- 7788 Oct, Rheumatoid arthritis with positive rheumatoid factor, involving unspecified site M05.9 [facility] [address] [address] Oct, Rheumatoid arthritis with positive rheumatoid factor, involving unspecified site M05.9 [facility] [address] [address] Oct, Closed nondisplaced fracture of third metatarsal bone of right foot with routine healing, subsequent encounter S92.334D ; Closed nondisplaced fracture of second metatarsal bone of right foot with routine healing, subsequent encounter S92.324D ; Closed nondisplaced fracture of phalanx of left great toe with routine healing, unspecified phalanx, subsequent encounter S92.405D and Other chronic pain G89.29 [facility] [address] [id number] [address] 17 Oct, 2017 Closed nondisplaced fracture of [...] positive rheumatoid factor, involving unspecified site M05.9 [place] [address] [facility] [id number] [place] [address] 47817- 4582 Oct, [facility] [id number] [place] [address] 22097- 1187 Oct, Injury of finger of right hand, initial encounter S69.91XA and Closed displaced fracture of distal phalanx of right middle finger, initial encounter S62.632A [facility] [address] [facility] [id number] [address] Sep, Mastitis N61.0 and MRSA (methicillin resistant staph aureus ) culture positive Z22.322 [place] [address] [facility] [id number] [place] [address] 78636- 8009 Sep, [facility] [address] [id number] [place] [address] 52681- 1397 Sep, Difficulty of mother performing R63.3 [place] [id number] [place] [address] 85341- 6218 Sep, Acute mastitis of left breast N61.0 [facility] [address] [place] [id number] [address] Sep, Abscess L02.91 [place] [address] [address] 4170 Sep, [place] [address] [place] [id number] [place] [address] 02804- 0966 Jun, [place] [address] [place] [id number] [place] [address] 90385- 3962 Jun, care, subsequent in second trimester Z34.82 ; Placenta previa in second trimester O44.02 ; Abnormal quad screen O28.0 ; History of delivery, currently O09.219 and 24 weeks gestation of Z3A.24 [place] [address] [place] [id number] [place] [address] 16876- 8551 16 May, 2017 Dental examination Z01.20 [place] [address] [place] [id number] [place] [address] 95662- 5068 May, History of delivery, currently O09.219 [place] [address] [place] [id number] [place] [address] 53167- 5054 May, [place] [address] [place] [id number] [place] [address] 63643- 9372 May, 20 weeks gestation of Z3A.20 ; care, subsequent in second trimester Z34.82 ; History of delivery, currently O09.219 and Abnormal quad screen O28.0 [place] [id number] [place] [address] 01869- 4417 Apr, Elevated blood sugar level R73.9 and Glucosuria R81 [place] [id number] [place] [address] 52697- 2137 Apr, Elevated blood sugar level R73.9 and Glucosuria R81 [place] [address] [place] [id number] [place] [address] 71708- 6024 Apr, Elevated blood sugar level R73.9 [place] [address] [place] [id number] [place] [address] 64512- 9431 Apr, [place] [address] [place] [id number] [place] [address] 84464- 3790 Apr, 16 weeks gestation of Z3A.16 ; care, subsequent in second trimester Z34.82 ; Encounter for immunization Z23 and Glucosuria R81 [place] [address] [place] [id number] [place] [address] 87954- 5059 08 Mar, 2017 12 weeks gestation of Z3A.12 [place] [address] 83826- 6979 14 Feb, 2017 [place] [address] 46221- 2873 Feb, care, subsequent in first trimester Z34.81 and 8 weeks gestation of Z3A.08 [place] [address] 14977- 1069 Jan, [place] [address] 80760- 0561 Jul, Encounter for test, result unknown Z32.00 [place] [address] 02941- 8929 Jun, control counseling Z30.9 and Insomnia, unspecified type G47.00 [place] [address] [place] [id number] [place] [address] 42243- 3946 Sep, Encounter for test Z32.00 [place] [address] 59705- 5505 Jul, [place] [address] 56313- 5791 Jul, Well woman exam Z01.419 ; Encounter for screening for malignant neoplasm of cervix Z12.4 ; Vaginal discharge N89.8 ; Routine screening for STI (sexually transmitted infection) Z11.3 ; Encounter for prescription for transdermal contraceptive Z30.49 ; Nausea with vomiting, unspecified R11.2 ; Menstrual migraine without status migrainosus, not intractable G43.829 and History of anxiety Z86.59 [facility] [address] [place] [address] [id number] [place] [address] 17237- 1625 Jun, Encounter for surveillance of transdermal contraceptive Z30.49 and Sauceda F48.9 [facility] [address] [place] [id number] [place] [address] 30859 2546 14 Oct, 2014 [facility] [address] [place] [address] [id number] [place] [address] 78496- 5986 Oct, [facility] [address] [place] [address] [id number] [place] [address] 56257- 4891 Jul, [facility] [address] [place] [address] [id number] [place] [address] 13268- 0551 Jul, [facility] [address] [place] [address] [id number] [place] [address] 57346- 2044 Jul, [facility] [id number] [place] [address] 05538- 6394 Jul, [facility] [address] [place] [id number] [place] [address] 75628- 9546 Jul, [facility] [address] [place] [address] [id number] [place] [address] 21849- 6993 Jul, [facility] [id number] [place] [address] 83396- 3345 Jun, [facility] [address] [id number] [place] [address] 98847- 2547 Jun, [facility] [id number] [place] [address] 44895- 5756 May, [facility] [address] [address] [id number] [place] [address] 12474- 2546 May, [facility] [id number] [place] [address] 09617- 254 May, [facility] [address] [address] [id number] [place] [address] 90598- 4147 May, [facility] [place] [facility] [address] [id number] [place] [address]- 5161 Feb, [facility] [place] [facility] [address] [id number] [place] [address]- 9927 Feb, [facility] [place] [facility] [address] [id number] [place] [address]- 0214 Feb, [facility] [place] [facility] [address] [id number] [place] [address]- 8449 Feb, [facility] [place] [facility] [address] [id number] [place] [address]- 3878 Oct, [facility] [place] [facility] [address] [id number] [place] [address]- 4053 Oct, [facility] [place] [facility] [address] [id number] [place] [address]- 2204 Sep, [facility] [place] [facility] [address] [id number] [place] [address]- 7664 Sep, [facility] [place] [facility] [address] [id number] [place] [address]- 9256 Sep, [facility] [place] [facility] [address] [id number] [place] [address]- 4369 Sep, [facility] [place] [facility] [address] [id number] [place] [address]- 7385 Aug, [facility] [place] [facility] [address] [id number] [place] [address]- 7664 Aug, [facility] [place] [facility] [address] [id number] [place] [address]- 0637 Jul, [facility] [place] [facility] [address] [id number] [place] [address]- 3374 Jul, [facility] [place] [facility] [address] [id number] [place] [address]- 0735 Jun, [facility] [place] [facility] [address] [id number] [place] [address]- 8117 Jun, [facility] [address] [id number] [place] [address]- 3631 Jun, [facility] [place] [facility] [address] [id number] [place] [address]- 5656 Jun, [facility] [address] [id number] [place] [address]- 1957 Jun, [facility] [address] [id number] [place] [address]- 5875 May, [facility] [address] [id number] [place] [address]- 1409 May, [facility] [address] [facility] [id number] [place] [address]- 9285 May, [facility] [address] [facility] [id number] [place] [address]- 7018 May, [facility] [address] [id number] [place] [address]- 4862 Apr, [facility] [address] [facility] [id number] [place] [address]- 6417 Apr, [facility] [address] [facility] [id number] [place] [address]- 8646 Apr, [facility] [place] [facility] [address] [id number] [place] [address]- 0596 Feb, [facility] [address] [id number] [place] [address]- 2546 Jan, [facility] [place] [facility] [address] [id number] [place] [address]- 7686 Aug, [facility] [place] [facility] [address] [facility] [id number] [place] [address]- 2546 Aug, [facility] [place] [facility] [address] [facility] [id number] [place] [address]- 7448 Aug, [facility] [address] [id number] [place] [address]- 9919 08 Aug, 2012 [facility] [place] [facility] [address] [id number] [place] [address]- 2506 07 Aug, 2012 [facility] [place] [facility] [address] [id number] [place] [address]- 4135 Aug, [facility] [place] [facility] [address] [id number] [place] [address]- 4473 Jul, [facility] [address] [id number] [place] [address]- 9072 Jul, [facility] [address] [id number] [place] [address]- 8675 Jul, [facility] [address] [id number] [place] [address]- 2268 Jul, [facility] [address] [id number] [place] [address]- 9424 Jul, [facility] [address] [id number] [place] [address]- 5922 Jul, [facility] [address] [id number] [place] [address]- 9775 Jul, [facility] [address] [id number] [address]- 4849 Jun, [facility] [place] [facility] [address] [id number] [place] [address]- 1994 Jun, [facility] [place] [facility] [address] [id number] [place] [address]- 3369 Jun, [facility] [place] [facility] [address] [id number] [place] [address]- 4736 Jun, [facility] [place] [facility] [address] [id number] [place] [address]- 5576 Jun, [facility] [place] [facility] [address] [id number] [place] [address]- 5334 Jun, [facility] [place] [facility] [address] [id number] [place] [address]- 7423 Jun, [facility] [place] [facility] [address] [id number] [place] 8806 Jun, [facility] [place] [facility] [address] [id number] [place] [address]- 7887 Jun, [facility] [place] [facility] [address] [id number] [place] [address]- 8682 Jun, [facility] [place] [facility] [address] [id number] [place] [address]- 9107 May, [facility] [place] [facility] [address] [id number] [place] [address]- 4912 May, [facility] [place] [facility] [address] [facility] [id number] [place] [address]- 7493 May, [facility] [place] [facility] [address] [facility] [id number] [place] [address]- 5803 May, [facility] [place] [facility] [address] [facility] [id number] [place] [address]- 7298 May, [facility] [place] [facility] [address] [facility] [id number] [place] [address]- 4330 Apr, [facility] [place] [facility] [address] [id number] [place] [address]- 6404 Apr, [facility] [place] [facility] [address] [facility] [id number] [address]- 7932 Apr, [facility] [place] [facility] [address] [id number] [place] [address]- 5830 Apr, [facility] [place] [facility] [address] [facility] [id number] [place] 5331 Apr, [facility] [place] [facility] [address] [id number] [place] [address]- 8524 Mar, [facility] [place] [facility] [address] [id number] [place] [address]- 4048 Mar, 2011 [facility] [place] [facility] [address] [id number] [place] [address]- 4896 12 Mar, 2012 [facility] [place] [facility] [address] [id number] [place] [address]- 8356 07 Mar, 2011 [facility] [place] [facility] [address] [id number] [place] [address]- 7086 06 Mar, 2012 [facility] [place] [facility] [address] [id number] [place] [address]- 2125 05 Mar, 2011 [facility] [place] [facility] [address] [id number] [place] [address]- 4318 Feb, [facility] [place] [facility] [address] [id number] [place] [address]- 7552 Feb, [facility] [place] [facility] [address] [id number] [place] [address]- 4983 Feb, [facility] [place] [facility] [address] [id number] [place] [address]- 5888 Feb, [facility] [place] [facility] [address] [id number] [place] [address]- 1714 Feb, [facility] [place] [facility] [address] [id number] [place] [address]- 4972 Jan, [facility] [place] [facility] [address] [id number] [place] [address]- 6264 Jan, [facility] [place] [facility] [address] [id number] [place] [address]- 2387 Jan, [facility] [place] [facility] [address] [id number] [place] [address]- 0442 Jan, [facility] [place] [facility] [address] [id number] [place] [address]- 7172 Jan, [facility] [place] [facility] [address] [id number] [place] [address]- 4802 Jan, [facility] [place] [facility] [address] [id number] [place] [address]- 0338 Dec, [facility] [place] [facility] [address] [id number] [place] [address]- 6092 Dec, [facility] [place] [facility] [address] [id number] [place] [address]- 3699 Dec, [facility] [place] [facility] [address] [id number] [place] [address]- 6374 Dec, [facility] [place] [facility] [address] [id number] [place] [address]- 1728 Dec, [facility] [place] [facility] [address] [id number] [place] [address]- 0922 Dec, [facility] [place] [facility] [address] [id number] [place] [address]- 4996 Dec, [facility] [place] [facility] [address] [id number] [place] [address]- 3970 November, [facility] [place] [facility] [address] [id number] [place] [address]- 6492 November, [facility] [place] [facility] [address] [id number] [place] [address]- 3581 November, [facility] [place] [facility] [address] [id number] [place] [address]- 1687 Oct, [facility] [place] [facility] [address] [id number] [place] [address]- 2331 Oct, [facility] [place] [facility] [address] [id number] [place] [address]- 2860 Oct, [facility] [place] [facility] [address] [id number] [place] [address]- 1924 Sep, [facility] [place] [facility] [address] [id number] [place] [address]- 8281 Sep, [facility] [place] [facility] [address] [id number] [place] [address]- 2899 05 Sep, 2011 [facility] [place] [facility] [address] [id number] [place] [address]- 4546 Sep, [facility] [place] [facility] [address] [id number] [place] [address]- 7736 Sep, [facility] [place] [facility] [address] [id number] [place] [address]- 9846 Aug, [facility] [place] [facility] [address] [id number] [place] [address]- 6751 Aug, [facility] [place] [facility] [address] [id number] [place] [address]- 2306 Aug, [facility] [place] [facility] [address] [id number] [place] [address]- 5541 Aug, [facility] [place] [facility] [address] [id number] [place] [address]- 4122 30 Jul, 2011 [facility] [address] [id number] [place] [address]- 3184 Jul, [facility] [place] [facility] [address] [id number] [place] [address]- 6433 Jul, [facility] [place] [facility] [address] [id number] [place] [address] Jul, [facility] [place] [facility] [address] [id number] [place] [address] Jul, [facility] [place] [facility] [address] [id number] [place] [address] 12 Jul, 2011 [facility] [place] [facility] [address] [id number] [place] [address] Jul, [facility] [place] [facility] [address] [id number] [place] [address] 10 Jul, 2011 [facility] [place] [facility] [address] [id number] [place] [address] 16 Jun, 2011 [facility] [place] [facility] [address] [id number] [place] [address] 13 Jun, 2011 [facility] [place] [facility] [address] [id number] [place] [address] 12 Jun, 2011 [facility] [place] [facility] [address] [facility] [id number] [place] [address] 06 Jun, 2011 [facility] [place] [facility] [address] [id number] [place] [address] 14 May, 2011 [facility] [place] [facility] [address] [id number] [place] [address] 31 Apr, 2011 [facility] [place] [facility] [address] [id number] [place] [address] 13 Mar, 2011 [facility] [place] [facility] [address] [id number] [place] [address] 16 Dec, 2010 [facility] [place] [facility] [address] [id number] [place] [address] 10 Aug, 2010 [facility] [place] [facility] [address] [id number] [place] [address] 11 Jul, 2010 [facility] [place] [facility] [address] [id number] [place] [address] 18 Sep, 2009 [facility] [place] [facility] [address] [id number] [place] [address] 12 Jul, 2009 [facility] [place] [facility] [address] [id number] [place] [address] 14 Jun, 2009 [facility] [place] [facility] [address] [id number] [place] [address] 14 Jun, 2009 [facility] [place] [facility] [address] [facility] [id number] [place] [address] 02 May, 2009 [facility] [place] [facility] [address] [facility] [id number] [place] [address] 15 Apr, 2009 [facility] [place] [facility] [address] [facility] [id number] [place] [address] Apr, [facility] [address] [id number] [address] Apr, [facility] [address] [id number] [place] [address] Feb, [facility] [address] [id number] [place] [address] Feb, [facility] [address] [id number] [address] [address] Jan, [facility] [address] [id number] [place] [address] November, IMMUNIZATIONS No Known Immunizations SOCIAL HISTORY Never Assessed REASON FOR VISIT SUBAB-FU PLAN OF CARE Activity Details Follow Up 1 Week Reason: Pending Test PDM - ATS (PROFILE 8) VITAL SIGNS MEDICATIONS Unknown Medications RESULTS No Results PROCEDURES Procedure Date Ordered Result Body Site DRUG TEST PRSMV CHEM ANLYZR Jun 16, 2018 Alcohol and/or drug services Jun 16, 2018 INSTRUCTIONS MEDICATIONS ADMINISTERED No Known Medications MEDICAL (GENERAL) HISTORY Type Description Date Medical History Arthritis Surgical History cholecystectomy Surgical History wisdom teeth extraction Surgical History Partial hysterectomy 2018 Hospitalization History child Hospitalization History colitis
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
[2018-07-11] MEDS ORDERED: D5 NS 1000 ML IV SOLUTION 1,000 ML IV ONE (00:15)
[2018-07-11] MEDS ORDERED: KETOROLAC 30 MG/ML VIAL IVP ONE (00:15)
[2018-07-11] MEDS ORDERED: ONDANSETRON 4 MG/2 ML (SDV) Z0FRAN IVP ONE (00:15)
--- NOTE | 2018-07-11 00:25 | ED Abdominal Pain ---
General Chief Complaint: Abdominal/GI Problems Stated Complaint: STOMACH PAIN;NAUSEA Nursing Triage Note: n/v/ abdominal, epigastric pain Sepsis Screen: No Definite Risk Source of Information: Patient Exam Limitations: No Limitations History of Present Illness Date Seen by Provider: Jul 11, 2018 Time Seen by Provider: 00:03 Initial Comments Patient presents to ER by private conveyance with a chief complaint that this morning she woke up with some abdominal pain in her upper abdomen and nausea with vomiting. The vomiting throughout the day not drinking anything or eating anything and she feels that she's got herself dehydrated. Now her chest is hurting her as well as all of her arms or neck or head or face etc. She says she feels like she cannot catch her breath. She does have a history of anxiety. She denies a history of GERD or ulcers or having a EGD done. She has no history of coronary artery disease or familial history of coronary artery disease or sudden cardiac in her family. She says the pain is worse when she takes deep inspirations, vomits or moves around. Laying on her back makes her back and abdomen hurt worse. She's not having any painful urination or hematuria. She is having normal stools without diarrhea or constipation. She does not drink alcohol or have a history of pancreatitis. She's had her uterus surgically removed as well as cholecystectomy and C-sections. She does not take any routine medicines at this time. She is concerned about her chest pain is the same chest pain she felt when she had a uterine hemorrhage that resulted in her hysterectomy and she had blood transfusions. She's not expressing any bleeding that she is aware of. Allergies and Home Medications Allergies Coded Allergies: cephalexin (Verified Allergy, Severe, RASH, Pt has received Ampicilin in the past, 08/12/17) codeine (Verified Allergy, Mild, HIVES, FLUSHING, BURNING FEELING, 08/13/17 ) Patient has received Morphine, Hydromorphone and Lortab on previous visits without issue tramadol (Verified Adverse Reaction, Unknown, VOMITING, 07/28/16) Home Medications Naproxen 500 Mg Tablet, 500 MG PO BID Prescribed by: JAKE ROTHMAN on 02/24/18 [id number] Omeprazole 40 Mg Capsule.dr, 40 MG PO DAILY Prescribed by: JAKE ROTHMAN on 02/24/18 [id number] Patient Home Medication List Home Medication List Reviewed: Yes Review of Systems Review of Systems Constitutional: No chills, No diaphoresis, No fever EENTM: No Blurred Vision, No Double Vision Respiratory: Denies Cough, Denies Shortness of Air Cardiovascular: Denies Chest Pain, Denies Edema Gastrointestinal: See HPI; Denies Abdomen Distended; Abdominal Pain; Denies Constipated, Denies Diarrhea; Nausea, Poor Fluid Intake, Vomiting Genitourinary: Denies Burning, Denies Discharge, Denies Hematuria Musculoskeletal: No back pain, No joint pain, No joint swelling Past Uvwsqss-Vpdmlk-Lfqcwc Hx Patient Social History Alcohol Use: Denies Use Recreational Drug Use: No Smoking Status: Never a Smoker Type Used: Smokeless Tobacco 2nd Hand Smoke Exposure: No Recent Foreign Travel: No Contact w/Someone Who Travel: No Recent Infectious Disease Expo: No Recent Hopitalizations: No Immunizations Up To Date Tetanus Booster (TDap): Unknown PED Vaccines UTD: Yes Date of Influenza Vaccine: Apr 19, 2017 Seasonal Allergies Seasonal Allergies: No Past Medical History Surgeries: Yes (FINGER REPAIR W/ PIN PLACEMENT) Section, Gallbladder, Hysterectomy, Orthopedic Respiratory: No Cardiac: No Neurological: Yes Headaches /Migraines : No 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 Disorders: No Female 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 Disorders: Ovarian Cyst LACE MENDER History: Hysterectomy Sexually Transmitted Disease: No HIV/AIDS: No Genitourinary: No Gastrointestinal: No Musculoskeletal: Yes Arthritis, Chronic Back Pain Endocrine: No HEENT: No Cancer: No Psychosocial: Yes Anxiety Integumentary: Yes ("pin in finger removed 12/12/17") Recent Skin Changes Blood Disorders: No Adverse Reaction/Blood Tranf: No Family Medical History Arthritis 19 FATHER Hypertension 19 FATHER No Pertinent Family Hx Physical Exam Vital Signs Vital Signs - First Documented 07/10/18 23:30 Temp 98.1 Pulse 92 Resp 18 B/P (MAP) 119/92 (101) Pulse Ox 100 O2 Delivery Room Air Capillary Refill : Less Than 3 Seconds Height/Weight/BMI Height: 5'4.00" Weight: 110lbs. 0oz. 49.988811gf; 22.6 BMI Method:Stated General Appearance: moderate distress (lying in the position), thin HEENT: PERRL/EOMI, normal ENT inspection, pharynx normal (mildly dry oropharynx ) Neck: non-tender, full range of motion Respiratory: chest non-tender, lungs clear, normal breath sounds, no respiratory distress, no accessory muscle use Cardiovascular: normal peripheral pulses, regular rate, rhythm, no edema Peripheral Pulses: 2+ Radial Pulses (R), 2+ Radial Pulses (L) Gastrointestinal: normal bowel sounds, soft, tenderness (hauw-vq-xsnzccoj tenderness in the epigastric region) Extremities: normal inspection Back: CVA tenderness (R); No CVA tenderness (L) Neurologic/Psychiatric: alert, normal mood/affect, oriented x 3 Skin: normal color, warm/dry Progress/Results/Core Measures Results/Orders Lab Results Laboratory Tests Test 07/10/18 23:35 07/11/18 01:45 Range/Units White Blood Count 8.2 4.3-11.0 10^3/uL Red Blood Count 3.63 L 4.35-5.85 10^6/uL Hemoglobin 12.1 11.5-16.0 G/DL Hematocrit 37 35-52 % Mean Corpuscular Volume 101 H 80-99 FL Mean Corpuscular Hemoglobin 33 25-34 PG Mean Corpuscular Hemoglobin Concent 33 32-36 G/DL Red Cell Distribution Width 14.2 10.0-14.5 % Platelet Count 300 130-400 10^3/uL Mean Platelet Volume 10.0 7.4-10.4 FL Neutrophils (%) (Auto) 61 42-75 % Lymphocytes (%) (Auto) 31 12-44 % Monocytes (%) (Auto) 8 0-12 % Eosinophils (%) (Auto) 0 0-10 % Basophils (%) (Auto) 0 0-10 % Neutrophils # (Auto) 5.0 1.8-7.8 X 10^3 Lymphocytes # (Auto) 2.5 1.0-4.0 X 10^3 Monocytes # (Auto) 0.6 0.0-1.0 X 10^3 Eosinophils # (Auto) 0.0 0.0-0.3 10^3/uL Basophils # (Auto) 0.0 0.0-0.1 10^3/uL Sodium Level 139 135-145 MMOL/L Potassium Level 2.7 L 3.6-5.0 MMOL/L Chloride Level 104 98-107 MMOL/L Carbon Dioxide Level 13 L 21-32 MMOL/L Anion Gap 22 H 5-14 MMOL/L Blood Urea Nitrogen 16 7-18 MG/DL Creatinine 0.58 L 0.60-1.30 MG/DL Estimat Glomerular Filtration Rate > 60 BUN/Creatinine Ratio 28 Glucose Level 54 *L 70-105 MG/DL Calcium Level 9.3 8.5-10.1 MG/DL Corrected Calcium 8.5-10.1 MG/DL Magnesium Level 1.7 L 1.8-2.4 MG/DL Total Bilirubin 3.1 H 0.1-1.0 MG/DL Aspartate Amino Transf (AST/SGOT) 683 H 5-34 U/L Alanine Aminotransferase (ALT/SGPT) 440 H 0-55 U/L Alkaline Phosphatase 104 40-136 U/L Troponin I < 0.30 < 0.30 <0.30 NG/ML C-Reactive Protein High Sensitivity 0.03 0.00-0.50 MG/DL Total Protein 7.2 6.4-8.2 GM/DL Albumin 4.6 H 3.2-4.5 GM/DL Lipase 10 8-78 U/L My Orders Orders - JAKE ROTHMAN Ua Culture If Indicated (07/10/18 23:38) Hcg,Qualitative Urine (07/10/18 23:38) Cbc With Automated Diff (07/11/18 00:15) Comprehensive Metabolic Panel (07/11/18 00:15) Hs C Reactive Protein (07/11/18 00:15) Drug Screen Stat (Urine) (07/11/18 00:15) Lipase (07/11/18 00:15) Magnesium (07/11/18 00:15) Troponin I (07/11/18 00:15) Saline Lock/Iv-Start (07/11/18 00:15) D5 Ns 1000 Ml Iv Solution (Dextrose 5%/0 (07/11/18 00:15) Ondansetron Injection (Zofran Injectio (07/11/18 00:15) Ketorolac Injection (Toradol Injection) (07/11/18 00:15) Ekg Tracing (07/11/18 00:19) Continuous Ekg Monitoring (07/11/18 00:19) Chest 1 View, Ap/Pa Only (07/11/18 00:19) Magnesium 1 Gm/100 Ml Ivpb (Magnesium Whitney (07/11/18 01:00) Potassium Cl 10meq/50ml Ivpb (Kcl 10 Meq (07/11/18 01:00) Promethazine Injection (Phenergan Injec (07/11/18 01:15) Fentanyl Injection (Sublimaze Injection (07/11/18 01:15) Pantoprazole Injection (Protonix Injecti (07/11/18 01:15) Troponin I (07/11/18 01:38) Medications Given in ED Current Medications Medications Dose Ordered Sig/Greg Route Start Time Stop Time Status Last Admin Dose Admin Dextrose/Sodium Chloride 1,000 ml @ 0 mls/hr Q0M ONCE IV 07/11/18 00:15 07/11/18 00:20 DC 07/11/18 00:26 999 MLS/HR Fentanyl Citrate 50 mcg ONCE ONCE IVP 07/11/18 01:15 07/11/18 01:16 DC 07/11/18 01:45 50 MCG Ketorolac Tromethamine 30 mg ONCE ONCE IVP 07/11/18 00:15 07/11/18 00:20 DC 07/11/18 00:26 30 MG Magnesium Sulfate/ Dextrose 100 ml @ 100 mls/hr ONCE ONCE IV 07/11/18 01:00 07/11/18 01:59 DC 07/11/18 01:02 100 MLS/HR Ondansetron HCl 4 mg ONCE ONCE IVP 07/11/18 00:15 07/11/18 00:20 DC 07/11/18 00:26 4 MG Pantoprazole 40 mg ONCE ONCE IV 07/11/18 01:15 07/11/18 01:16 DC 07/11/18 01:45 40 MG Potassium Chloride 50 ml @ 50 mls/hr ONCE ONCE IV 07/11/18 01:00 07/11/18 01:59 DC 07/11/18 01:02 50 MLS/HR Promethazine HCl 25 mg ONCE ONCE IVP 07/11/18 01:15 07/11/18 01:16 DC 07/11/18 01:44 25 MG Vital Signs/I&O 07/10/18 23:30 Temp 98.1 Pulse 92 Resp 18 B/P (MAP) 119/92 (101) Pulse Ox 100 O2 Delivery Room Air Blood Pressure Mean: 101 Progress Progress Note #1: Time: 00:22 Progress Note Her shortness of breath and pain positive achiness is probably due to her anxiety triggered by her nausea vomiting and dehydration. We'll put some fluids and her 20 mL/kg start which is 1 L and use Toradol and Zofran for her symptoms. We'll obtain labs and urine and if anything looks interesting we will look further into her abdomen with a CT. at this time her vital signs are unremarkable. Chest x-ray, EKG and troponin. She has some tenderness over her right costovertebral angle which could be from an infection versus kidney stone. She mentioned that she had been seen by Dr. Rush in the past. Cardiology was consulted back in July after the patient had some bleeding and had to be taken to the OR to have her hysterectomy and blood transfusions. She was tachycardic and had some recurrent PVCs but they took her off telemetry before even discharging home. No further intervention seems to been done from a cardiac standpoint. ED ACS score of -3 points.Low risk by the EDACS Score. If the patient also has: (1) EKG without new ischemic changes and (2) negative initial and 2-hour troponins, then this patient is safe for discharge to early outpatient follow-up investigation (or proceed to earlier inpatient testing). If EKG with ischemic changes or positive troponin, they are not low risk and require normal risk stratification. Progress Note #2: Time: 01:36 Progress Note Patient's electrolytes are modestly off because of her nausea and vomiting. Her chest pain does not seem to be associated with any kind acute coronary syndrome at this time. We'll repeat a two-hour repeat troponin. She still having some discomfort in her epigastric region so we'll try some fentanyl and if that doesn 't control her pain and will have to get more aggressive. Doctor about going home some nausea medicines and she says that she would like to do this if she is getting it feeling better. We'll going give her potassium and magnesium IV while she's here. She's not vomited since she's been here. Progress Note #3: Time: 02:46 Progress Note Pain and nausea resolved nearly instantly after receiving the pantoprazole. Patient is feeling much better and sleeping at this time. We are going to allow her to go home with some ondansetron outpatient. Encourage her to get omeprazole and follow up with primary care. Initial ECG Impression Date: Jul 11, 2018 Initial ECG Impression Time: 00:33 Initial ECG Rate: 80 Initial ECG Rhythm: Normal Sinus Initial ECG Intervals: Normal Initial ECG Impression: Normal Initial ECG Comparisson: Unchanged Comment [address] elevation or depression. Diagnostic Imaging Diagonstic Imaging: Xray Plain Films/CT/US/NM/MRI: chest (1 view) Comments No acute cardiopulmonary processes noted on one view chest x-ray. Reviewed: Reviewed by Me Departure Impression Primary Impression: Gastroenteritis and colitis, viral Disposition: 01 HOME, SELF-CARE Condition: Improved Departure-Patient Inst. Decision time for Depature: 02:47 Referrals: CELE NELSON MD (PCP/Family) Primary Care Physician Patient Instructions: [id number] Add. Discharge Instructions: Get some rest, drink plenty of fluids and if you have nausea take one tablet of Zofran place under your tongue allowed to absorb every 6 hours as needed. Use the omeprazole 20 mg tablet 1-2 times a day as needed for burning pain or acid reflux for the next 2-4 weeks. If your symptoms persist for more than 3-5 days and follow-up with primary care for reevaluation. You can use Tylenol, ibuprofen and heating pads as necessary for pain. All discharge instructions reviewed with patient and/or family. Voiced understanding. Scripts Omeprazole (Omeprazole) 20 Mg Capsule.dr 20 MG PO BID PRN for ABDOMINAL PAIN for 14 Days, #30 CAP 0 Refills Prov: JAKE ROTHMAN 07/11/18 Ondansetron (Ondansetron Odt) 4 Mg Tab.rapdis 4 MG PO Q6H PRN for NAUSEA/VOMITING, #8 TAB 0 Refills Prov: JAKE ROTHMAN 07/11/18 JAKE ROTHMAN Jul 11, 2018 00:25
[2018-07-11 00:30] LABS: BASOPHILS % (AUTO) 0 % (0-10); EOSINOPHILS % (AUTO) 0 % (0-10); HEMATOCRIT 37 % (35-52); HEMOGLOBIN 12.1 G/DL (11.5-16.0); LYMPHOCYTES # (AUTO) 2.5 X 10^3 (1.0-4.0); LYMPHOCYTES % (AUTO) 31 % (12-44); MEAN CORPUSCULAR HEMOGLOBIN 33 PG (25-34); MEAN CORPUSCULAR HGB CONC 33 G/DL (32-36); MEAN CORPUSCULAR VOLUME 101 FL (80-99); MONOCYTES # (AUTO) 0.6 X 10^3 (0.0-1.0); MONOCYTES % (AUTO) 8 % (0-12); NEUTROPHILS % (AUTO) 61 % (42-75); PLATELET COUNT 300 10^3/uL (130-400); RED BLOOD COUNT 3.63 10^6/uL (4.35-5.85); RED CELL DISTRIBUTION WIDTH 14.2 % (10.0-14.5); WHITE BLOOD COUNT 8.2 10^3/uL (4.3-11.0)
[2018-07-11 00:44] LABS: ALANINE AMINOTRANSFERASE 440 U/L (0-55); ALBUMIN 4.6 GM/DL (3.2-4.5); ALKALINE PHOSPHATASE 104 U/L (40-136); BILIRUBIN,TOTAL 3.1 MG/DL (0.1-1.0); BUN/CREATININE RATIO 28; CALCIUM 9.3 MG/DL (8.5-10.1); CARBON DIOXIDE 13 MMOL/L (21-32); CHLORIDE 104 MMOL/L (98-107); CREATININE SERUM 0.58 MG/DL (0.60-1.30); GFR ESTIMATED > 60; LIPASE 10 U/L (8-78); MAGNESIUM 1.7 MG/DL (1.8-2.4); POTASSIUM 2.7 MMOL/L (3.6-5.0); SODIUM 139 MMOL/L (135-145); TOTAL PROTEIN 7.2 GM/DL (6.4-8.2)
[2018-07-11 00:51] LABS: GLUCOSE 54 MG/DL (70-105)
[2018-07-11] MEDS ORDERED: MAGNESIUM 1 GM/100 ML IVPB 100 ML IV ONE (01:00)
[2018-07-11] MEDS ORDERED: POTASSIUM CL 10MEQ/50ML IVPB 50 ML IV ONE (01:00)
[2018-07-11] MEDS ORDERED: PROMETHAZINE INJ 25 MG/ML (PHENERGAN) AMP IVP ONE (01:15)
[2018-07-11] MEDS ORDERED: fentaNYL INJECTION 100 MCG/2 ML AMP IVP ONE (01:15)
[2018-07-11] MEDS ORDERED: PANTOPRAZOLE 40 MG (PROTONIX) VIAL IV ONE (01:15)
[2018-07-11] MEDS ORDERED: OMEP20CA12 PO (02:51)
[2018-07-11] MEDS ORDERED: ONDA4TAB11 PO (02:51)
[2018-07-11 02:57] VITALS: BP 121/81
--- NOTE | 2018-07-11 05:26 | Diagnostic Imaging Report ---
INDICATION: Epigastric pain COMPARISON: 08/12/2017 FINDINGS: Single frontal view of the chest demonstrates normal heart size and pulmonary vascularity. The lungs are well aerated and clear. No large pleural effusion or pneumothorax is seen. The visualized osseous structures show no acute abnormalities. IMPRESSION: 1. No acute cardiopulmonary process. Dictated by: Dictated on workstation # [id number]
== END 2018-07-11 02:57 | disposition home or self-care (01) ==
LOC: EDUNIT# 23:24 → ER 23:26
DX: A08.4 Viral intestinal infection, unspecified (principal); F41.9 Anxiety disorder, unspecified; G43.909 Migraine, unspecified, not intractable, without status migrainosus; Z87.448 Personal history of other diseases of urinary system; Z88.5 Allergy status to narcotic agent; Z88.6 Allergy status to analgesic agent; Z88.8 Allergy status to other drugs, medicaments and biological substances; Z98.890 Other specified postprocedural states; Z90.49 Acquired absence of other specified parts of digestive tract; Z90.710 Acquired absence of both cervix and uterus; Z87.19 Personal history of other diseases of the digestive system
CPT/HCPCS: 36415; 71045; 80053; 83690; 83735; 84484; 85025; 86141; 93005; 96361; 96365; 96367; 96375